=== PATIENT | male | born 1990 | race African-American/Black ===

== ENCOUNTER → 2017-01-21 | Outpatient (REF) | payer MEDICAID | LOC: M LAB REF 11:43 | PROVIDERS: ATTEND Physician Assistant | DX: Z11.3 Encounter for screening for infections with a predominantly sexual mode of transmission (principal) ==

== ENCOUNTER → 2017-01-26 | Outpatient (CLI) | payer OTHER ==
[2017-01-26 13:18] LABS: BASO # 0.1 10^3/uL (0.0-0.2); BASO % 0.7 % (0.0-1.0); EOS # 0.2 10^3/uL (0.0-0.50); EOS % 2.8 % (0.0-3.0); IMMATURE GRANULOCYTE % 0.3 % (0-0); LYMPH # 1.9 10^3/uL (1.5-6.5); LYMPH % 25.9 % (24.0-44.0); MEAN CORPUSCULAR HEMOGLOBIN 27.3 pg (27.0-33.0); MEAN CORPUSCULAR HGB CONC 32.2 g/dl (32.0-36.5); MONO # 0.9 10^3/uL (0.0-0.8); MONO % 12.6 % (0.0-5.0); NEUTROPHILS # 4.3 10^3/uL (1.8-7.7); NEUTROPHILS % 57.7 % (36.0-66.0); PLATELET COUNT, AUTOMATED 181 10^3/uL (150-450); RED CELL DISTRIBUTION WIDTH 14.7 % (11.5-14.5); WHITE BLOOD COUNT 7.4 10^3/uL (4.0-10.0)
[2017-01-26 13:20] LABS: VITAMIN B12 LEVEL 911 PG/ML (247-911)
[2017-01-26 13:23] LABS: ADD MANUAL DIFFER NO; DIFF SLIDE NUMBER 229
[2017-01-26 13:32] LABS: ALBUMIN 3.7 GM/DL (3.2-5.2); ALKALINE PHOSPHATASE 122 U/L (45-117); ALT/SGPT 108 U/L (12-78); ANION GAP 5 MEQ/L (8-16); AST/SGOT 115 U/L (15-37); BILIRUBIN,TOTAL 0.8 MG/DL (0.2-1.0); BLOOD UREA NITROGEN 5 MG/DL (7-18); CALCIUM LEVEL 9.2 MG/DL (8.5-10.1); CARBON DIOXIDE LEVEL 32 MEQ/L (21-32); CHLORIDE LEVEL 101 MEQ/L (98-107); CHOLESTEROL LEVEL 115 MG/DL (<200); CREATININE FOR GFR 0.78 MG/DL (0.70-1.30); GLOMERULAR FILTRATION RATE > 60.0 (>60); GLUCOSE, FASTING 100 MG/DL (70-105); POTASSIUM SERUM 3.2 MEQ/L (3.5-5.1); SODIUM LEVEL 138 MEQ/L (136-145); TOTAL PROTEIN 7.4 GM/DL (6.4-8.2); TRIGLYCERIDES LEVEL 102 MG/DL (<150)
== END ==
LOC: M LAB 12:08
PROVIDERS: ATTEND Registered Nurse Psychiatric/Mental Health
DX: F25.0 Schizoaffective disorder, bipolar type (principal)

== ENCOUNTER 2017-03-08 22:37 | Emergency (ER) | payer OTHER ==
[2017-03-08] MEDS ORDERED: HALOPERIDOL 5 MG/ML VIAL (J1630) IM ONE ×2 (22:45→23:30)
[2017-03-08] MEDS ORDERED: LORazepam 2 MG/ML VIAL (J2060) IM ONE ×2 (22:45→23:30)
[2017-03-08] MEDS ORDERED: diphenhydrAMINE INJ 50MG/ML VIAL (J1200) IM ONE ×2 (22:45→23:30)
[2017-03-09 00:24] LABS: MEAN CORPUSCULAR HEMOGLOBIN 26.4 pg (27.0-33.0); MEAN CORPUSCULAR HGB CONC 32.7 g/dl (32.0-36.5); MEAN CORPUSCULAR VOLUME 80.9 fl (80.0-96.0); PLATELET COUNT, AUTOMATED 249 10^3/uL (150-450); RED CELL DISTRIBUTION WIDTH 15.5 % (11.5-14.5); WHITE BLOOD COUNT 6.2 10^3/uL (4.0-10.0)
[2017-03-09 00:25] LABS: METHADONE URINE NEGATIVE (NEGATIVE)
[2017-03-09 01:00] LABS: ALBUMIN 3.6 GM/DL (3.2-5.2); ALKALINE PHOSPHATASE 110 U/L (45-117); ALT/SGPT 50 U/L (12-78); ANION GAP 9 MEQ/L (8-16); AST/SGOT 38 U/L (7-37); BILIRUBIN,DIRECT 0.1 MG/DL (0.0-0.2); BILIRUBIN,TOTAL 0.4 MG/DL (0.2-1.0); BLOOD UREA NITROGEN 4 MG/DL (7-18); CALCIUM LEVEL 8.3 MG/DL (8.5-10.1); CARBON DIOXIDE LEVEL 26 MEQ/L (21-32); CHLORIDE LEVEL 109 MEQ/L (98-107); CREATININE FOR GFR 0.66 MG/DL (0.70-1.30); GLOMERULAR FILTRATION RATE > 60.0 (>60); GLUCOSE, FASTING 96 MG/DL (70-105); POTASSIUM SERUM 3.8 MEQ/L (3.5-5.1); SODIUM LEVEL 144 MEQ/L (136-145); TOTAL PROTEIN 7.2 GM/DL (6.4-8.2)
[2017-03-09] MEDS ORDERED: SERO50TA (01:17)
[2017-03-09] MEDS ORDERED: PRAZ1CAP (01:17)
[2017-03-09] MEDS ORDERED: LATU40TA (01:17)
[2017-03-09 02:13] LABS: FREE T4 1.69 NG/DL (0.76-1.46)
[2017-03-09] MEDS ORDERED: METAL LOCK LOOP XX ONE (02:43)
[2017-03-09] MEDS ORDERED: NICOTINE 21MG/24HR 1 EA TRANSDERMAL TD ONE (12:00)
[2017-03-09 14:15] VITALS: BP 116/68
== END 2017-03-09 14:17 | disposition home or self-care (01) ==
LOC: M ED 22:37
DX: F10.129 Alcohol abuse with intoxication, unspecified (principal)
CPT/HCPCS: 80048; 80076; 80307; 80320; 80329; 84439; 84443; 85027; 96372; 99285; J1200; J1630; J2060

== ENCOUNTER 2017-03-15 01:27 | Emergency (ER) | payer OTHER ==
[~2017-03-15] VITALS: Ht 185.4 cm; Wt 84.5 kg
[~2017-03-15 01:27] MED LIST: LATU40TA PO; PRAZ1CAP PO; SERO50TA PO
[2017-03-15 02:42] VITALS: BP 142/93
== END 2017-03-15 03:05 | disposition home or self-care (01) ==
LOC: M ED 01:27
DX: F43.0 Acute stress reaction (principal); F43.10 Post-traumatic stress disorder, unspecified; F32.9 Major depressive disorder, single episode, unspecified; F20.9 Schizophrenia, unspecified; F17.200 Nicotine dependence, unspecified, uncomplicated

== ENCOUNTER 2017-03-21 16:29 | Emergency (ER) | payer OTHER ==
[~2017-03-21] VITALS: Ht 185.4 cm; Wt 77.7 kg
[2017-03-21] MEDS ORDERED: PRAZ2CAP PO (16:51)
[2017-03-21 17:41] LABS: MEAN CORPUSCULAR HEMOGLOBIN 26.7 pg (27.0-33.0); MEAN CORPUSCULAR VOLUME 80.9 fl (80.0-96.0); PLATELET COUNT, AUTOMATED 248 10^3/uL (150-450); RED CELL DISTRIBUTION WIDTH 17.8 % (11.5-14.5); WHITE BLOOD COUNT 7.3 10^3/uL (4.0-10.0)
[2017-03-21 18:11] LABS: METHADONE URINE NEGATIVE (NEGATIVE)
[2017-03-21 18:19] LABS: ALBUMIN 3.7 GM/DL (3.2-5.2); ALBUMIN/GLOBULIN RATIO 0.95 (1.00-1.93); ALKALINE PHOSPHATASE 92 U/L (45-117); ALT/SGPT 42 U/L (12-78); ANION GAP 11 MEQ/L (8-16); AST/SGOT 33 U/L (7-37); BILIRUBIN,DIRECT 0.1 MG/DL (0.0-0.2); BILIRUBIN,TOTAL 0.3 MG/DL (0.2-1.0); BLOOD UREA NITROGEN 2 MG/DL (7-18); CALCIUM LEVEL 8.7 MG/DL (8.5-10.1); CARBON DIOXIDE LEVEL 25 MEQ/L (21-32); CHLORIDE LEVEL 106 MEQ/L (98-107); CREATININE FOR GFR 0.74 MG/DL (0.70-1.30); GLOMERULAR FILTRATION RATE > 60.0 (>60); GLUCOSE, FASTING 98 MG/DL (70-105); POTASSIUM SERUM 3.7 MEQ/L (3.5-5.1); SODIUM LEVEL 142 MEQ/L (136-145); TOTAL PROTEIN 7.6 GM/DL (6.4-8.2)
[2017-03-22 03:12] VITALS: BP 123/77
== END 2017-03-22 03:18 | disposition home or self-care (01) ==
LOC: M ED 16:29
DX: Z04.6 Encounter for general psychiatric examination, requested by authority (principal); F10.929 Alcohol use, unspecified with intoxication, unspecified; F33.9 Major depressive disorder, recurrent, unspecified; F20.9 Schizophrenia, unspecified; F43.10 Post-traumatic stress disorder, unspecified; F90.9 Attention-deficit hyperactivity disorder, unspecified type; F17.210 Nicotine dependence, cigarettes, uncomplicated; Z79.899 Other long term (current) drug therapy

== ENCOUNTER → 2017-04-06 | Outpatient (REF) | payer OTHER ==
[~2017-04-06] MED LIST changes: +LATU80TA PO; +NICO14DI3 TD; +PRAZ2CAP PO
[2017-04-06 17:33] LABS: BASO # 0.1 10^3/uL (0.0-0.2); BASO % 1.1 % (0.0-1.0); EOS # 0.2 10^3/uL (0.0-0.50); EOS % 1.9 % (0.0-3.0); IMMATURE GRANULOCYTE % 0.2 % (0-0); LYMPH # 2.5 10^3/uL (1.5-6.5); LYMPH % 31.6 % (24.0-44.0); MEAN CORPUSCULAR HEMOGLOBIN 26.6 pg (27.0-33.0); MEAN CORPUSCULAR VOLUME 80.7 fl (80.0-96.0); MONO # 0.9 10^3/uL (0.0-0.8); MONO % 10.6 % (0.0-5.0); NEUTROPHILS # 4.4 10^3/uL (1.8-7.7); NEUTROPHILS % 54.6 % (36.0-66.0); PLATELET COUNT, AUTOMATED 273 10^3/uL (150-450); RED CELL DISTRIBUTION WIDTH 16.7 % (11.5-14.5)
[2017-04-06 17:48] LABS: ALBUMIN 4.1 GM/DL (3.2-5.2); ALBUMIN/GLOBULIN RATIO 1.08 (1.00-1.93); ALKALINE PHOSPHATASE 99 U/L (45-117); ALT/SGPT 44 U/L (12-78); ANION GAP 8 MEQ/L (8-16); AST/SGOT 33 U/L (7-37); BLOOD UREA NITROGEN 4 MG/DL (7-18); CARBON DIOXIDE LEVEL 30 MEQ/L (21-32); CHLORIDE LEVEL 101 MEQ/L (98-107); CHOLESTEROL LEVEL 174 MG/DL (<200); CREATININE FOR GFR 0.94 MG/DL (0.70-1.30); FREE T4 1.26 NG/DL (0.76-1.46); GLOMERULAR FILTRATION RATE > 60.0 (>60); GLUCOSE, FASTING 75 MG/DL (70-105); POTASSIUM SERUM 3.6 MEQ/L (3.5-5.1); SODIUM LEVEL 139 MEQ/L (136-145); TOTAL PROTEIN 7.9 GM/DL (6.4-8.2); TRIGLYCERIDES LEVEL 144 MG/DL (<150)
== END ==
LOC: M SFHCPLAZ 15:51
PROVIDERS: ATTEND Family Medicine
DX: Z51.81 Encounter for therapeutic drug level monitoring (principal); R89.9 Unspecified abnormal finding in specimens from other organs, systems and tissues; Z71.1 Person with feared health complaint in whom no diagnosis is made

== ENCOUNTER 2017-04-11 18:59 | Emergency (ER) | payer OTHER ==
[~2017-04-11] VITALS: Ht 185.4 cm; Wt 80.9 kg
[~2017-04-11 18:59] MED LIST changes: -LATU80TA PO; -NICO14DI3 TD
[2017-04-11 20:05] LABS: MEAN CORPUSCULAR HGB CONC 34.1 g/dl (32.0-36.5); MEAN CORPUSCULAR VOLUME 79.1 fl (80.0-96.0); PLATELET COUNT, AUTOMATED 242 10^3/uL (150-450); RED CELL DISTRIBUTION WIDTH 17.6 % (11.5-14.5); WHITE BLOOD COUNT 6.4 10^3/uL (4.0-10.0)
[2017-04-11 20:22] LABS: METHADONE URINE NEGATIVE (NEGATIVE)
[2017-04-11 20:33] LABS: ALBUMIN/GLOBULIN RATIO 1.05 (1.00-1.93); ALKALINE PHOSPHATASE 103 U/L (45-117); ALT/SGPT 48 U/L (12-78); ANION GAP 11 MEQ/L (8-16); AST/SGOT 54 U/L (7-37); BILIRUBIN,DIRECT 0.2 MG/DL (0.0-0.2); BILIRUBIN,TOTAL 0.5 MG/DL (0.2-1.0); BLOOD UREA NITROGEN 2 MG/DL (7-18); CALCIUM LEVEL 8.3 MG/DL (8.5-10.1); CARBON DIOXIDE LEVEL 25 MEQ/L (21-32); CHLORIDE LEVEL 107 MEQ/L (98-107); CREATININE FOR GFR 0.75 MG/DL (0.70-1.30); GLOMERULAR FILTRATION RATE > 60.0 (>60); GLUCOSE, FASTING 98 MG/DL (70-105); POTASSIUM SERUM 3.5 MEQ/L (3.5-5.1); SODIUM LEVEL 143 MEQ/L (136-145); TOTAL PROTEIN 7.8 GM/DL (6.4-8.2)
[2017-04-11] MEDS ORDERED: LATU80TA PO (23:16)
[2017-04-11] MEDS ORDERED: NICO14DI3 TD (23:17)
[2017-04-11] MEDS ORDERED: NICOTINE 14 MG/24 HR TRANSDERMAL TD ONE (23:30)
[2017-04-11] MEDS ORDERED: LURASIDONE 20 MG TAB (LATUDA) PO ONE (23:30)
[2017-04-12] MEDS ORDERED: METAL LOCK LOOP XX ONE (07:54)
[2017-04-12 08:11] VITALS: BP 122/62
== END 2017-04-12 11:42 | disposition home or self-care (01) ==
LOC: M ED 18:59
DX: F10.129 Alcohol abuse with intoxication, unspecified (principal); Z72.0 Tobacco use
CPT/HCPCS: 80048; 80076; 80307; 84443; 85027; 99284; G0480

== ENCOUNTER 2017-04-13 22:28 | Emergency (ER) | payer OTHER ==
[2017-04-13] MEDS: HALOPERIDOL 5 MG/ML VIAL (J1630) IM (23:06)
[2017-04-13] MEDS: diphenhydrAMINE INJ 50MG/ML VIAL (J1200) IM (23:06)
[2017-04-13] MEDS: LORazepam 2 MG/ML VIAL (J2060) IM (23:07)
[2017-04-13 23:57] LABS: MEAN CORPUSCULAR HEMOGLOBIN 26.9 pg (27.0-33.0); MEAN CORPUSCULAR HGB CONC 33.8 g/dl (32.0-36.5); MEAN CORPUSCULAR VOLUME 79.4 fl (80.0-96.0); PLATELET COUNT, AUTOMATED 207 10^3/uL (150-450); RED CELL DISTRIBUTION WIDTH 17.1 % (11.5-14.5); WHITE BLOOD COUNT 6.7 10^3/uL (4.0-10.0)
[2017-04-14] LABS: METHADONE URINE NEGATIVE (NEGATIVE)
[2017-04-14 00:39] LABS: ALBUMIN 3.4 GM/DL (3.2-5.2); ALKALINE PHOSPHATASE 94 U/L (45-117); ALT/SGPT 32 U/L (12-78); ANION GAP 11 MEQ/L (8-16); AST/SGOT 29 U/L (7-37); BILIRUBIN,DIRECT 0.2 MG/DL (0.0-0.2); BILIRUBIN,TOTAL 0.7 MG/DL (0.2-1.0); BLOOD UREA NITROGEN 3 MG/DL (7-18); CALCIUM LEVEL 8.2 MG/DL (8.5-10.1); CARBON DIOXIDE LEVEL 26 MEQ/L (21-32); CHLORIDE LEVEL 97 MEQ/L (98-107); CREATININE FOR GFR 0.68 MG/DL (0.70-1.30); GLOMERULAR FILTRATION RATE > 60.0 (>60); GLUCOSE, FASTING 108 MG/DL (70-105); TOTAL PROTEIN 6.8 GM/DL (6.4-8.2)
[2017-04-14 00:50] LABS: SODIUM LEVEL 134 MEQ/L (136-145)
[2017-04-14 00:51] LABS: POTASSIUM SERUM 2.9 MEQ/L (3.5-5.1)
[2017-04-14] MEDS: POTASSIUM CHLORIDE 10% LIQ 20 MEQ/15 ML UDC PO (01:21)
[2017-04-14] MEDS: POTASSIUM CHLORIDE 10 MEQ SR TABLET PO (05:34)
[2017-04-14] MEDS ORDERED: POTASSIUM CHLORIDE 10 MEQ SR TABLET PO (08:15)
== END 2017-04-14 10:25 | disposition home or self-care (01) ==
LOC: M ED 22:28
DX: F10.129 Alcohol abuse with intoxication, unspecified (principal); R45.851 Suicidal ideations; Z72.0 Tobacco use
CPT/HCPCS: J1200

== ENCOUNTER 2017-04-25 22:48 | Emergency (ER) | payer OTHER ==
[2017-04-25 23:33] LABS: HEMATOCRIT 42.7 % (42.0-52.0); HEMOGLOBIN 14.3 g/dl (14.0-18.0); MEAN CORPUSCULAR HEMOGLOBIN 26.8 pg (27.0-33.0); MEAN CORPUSCULAR HGB CONC 33.5 g/dl (32.0-36.5); MEAN CORPUSCULAR VOLUME 80.1 fl (80.0-96.0); PLATELET COUNT, AUTOMATED 155 10^3/uL (150-450); RED BLOOD COUNT 5.33 10^6/uL (4.30-6.10); RED CELL DISTRIBUTION WIDTH 19.9 % (11.5-14.5); WHITE BLOOD COUNT 6.4 10^3/uL (4.0-10.0)
[2017-04-26 00:02] LABS: AMPHETAMINES LEVEL URINE NEGATIVE (NEGATIVE); BARBITURATES URINE NEGATIVE (NEGATIVE); BENZODIAZEPINES URINE NEGATIVE (NEGATIVE); CANNABINOIDS URINE NEGATIVE (NEGATIVE); COCAINE METABOLITE URINE NEGATIVE (NEGATIVE); METHADONE URINE NEGATIVE (NEGATIVE); OPIATES URINE NEGATIVE (NEGATIVE); PHENCYCLIDINE URINE NEGATIVE (NEGATIVE)
[2017-04-26 00:03] LABS: ALBUMIN 3.8 GM/DL (3.2-5.2); ALKALINE PHOSPHATASE 112 U/L (45-117); ALT/SGPT 49 U/L (12-78); ANION GAP 9 MEQ/L (8-16); AST/SGOT 99 U/L (7-37); BILIRUBIN,DIRECT 0.2 MG/DL (0.0-0.2); BILIRUBIN,TOTAL 0.6 MG/DL (0.2-1.0); BLOOD UREA NITROGEN 4 MG/DL (7-18); CALCIUM LEVEL 7.8 MG/DL (8.5-10.1); CARBON DIOXIDE LEVEL 27 MEQ/L (21-32); CHLORIDE LEVEL 105 MEQ/L (98-107); CREATININE FOR GFR 0.72 MG/DL (0.70-1.30); GLOMERULAR FILTRATION RATE > 60.0 (>60); GLUCOSE, FASTING 83 MG/DL (70-105); POTASSIUM SERUM 3.7 MEQ/L (3.5-5.1); SALICYLATE LEVEL 4.8 MG/DL (5.0-30.0); SODIUM LEVEL 141 MEQ/L (136-145); THYROID STIMULATING HORMONE 0.107 uIU/ML (0.358-3.740); TOTAL PROTEIN 7.6 GM/DL (6.4-8.2)
[2017-04-26 00:10] LABS: ACETAMINOPHEN LEVEL < 2.0 UG/ML (10.0-30.0)
[2017-04-26] MEDS: NICOTINE 21MG/24HR 1 EA TRANSDERMAL TD (04:56)
[2017-04-26 08:39] LABS: ETHYL ALCOHOL (ETHANOL) 0.244 % (0.000-0.010)
== END 2017-04-26 10:33 | disposition home or self-care (01) ==
LOC: M ED 22:48
DX: F10.129 Alcohol abuse with intoxication, unspecified (principal); F17.200 Nicotine dependence, unspecified, uncomplicated
CPT/HCPCS: 80320

== ENCOUNTER → 2017-05-14 | Outpatient (REF) | payer OTHER ==
[2017-05-16 15:57] LABS: CHLAMYDIA DNA AMPLIFICATION NEGATIVE (NEGATIVE); GC DNA AMPLIFICATION NEGATIVE (NEGATIVE)
== END ==
LOC: M LAB REF 09:51
DX: R30.0 Dysuria (principal)
CPT/HCPCS: 87591

== ENCOUNTER 2017-05-15 02:09 | Emergency (ER) | payer OTHER ==
[2017-05-15] MEDS: QUEtiapine FUMARATE 50 MG TAB PO (02:59)
== END 2017-05-15 03:53 | disposition home or self-care (01) ==
LOC: M ED 02:09
DX: F25.9 Schizoaffective disorder, unspecified (principal); Z79.899 Other long term (current) drug therapy
CPT/HCPCS: 99283

== ENCOUNTER 2017-05-17 02:39 | Emergency (ER) | payer OTHER ==
[2017-05-17 04:04] LABS: HEMATOCRIT 40.5 % (42.0-52.0); HEMOGLOBIN 13.5 g/dl (14.0-18.0); MEAN CORPUSCULAR HEMOGLOBIN 28.5 pg (27.0-33.0); MEAN CORPUSCULAR HGB CONC 33.3 g/dl (32.0-36.5); MEAN CORPUSCULAR VOLUME 85.4 fl (80.0-96.0); PLATELET COUNT, AUTOMATED 182 10^3/uL (150-450); RED BLOOD COUNT 4.74 10^6/uL (4.30-6.10); RED CELL DISTRIBUTION WIDTH 18.6 % (11.5-14.5); WHITE BLOOD COUNT 8.6 10^3/uL (4.0-10.0)
[2017-05-17 04:17] LABS: AMPHETAMINES LEVEL URINE NEGATIVE (NEGATIVE); BARBITURATES URINE NEGATIVE (NEGATIVE); BENZODIAZEPINES URINE NEGATIVE (NEGATIVE); CANNABINOIDS URINE NEGATIVE (NEGATIVE); COCAINE METABOLITE URINE NEGATIVE (NEGATIVE); METHADONE URINE NEGATIVE (NEGATIVE); OPIATES URINE NEGATIVE (NEGATIVE); PHENCYCLIDINE URINE NEGATIVE (NEGATIVE)
[2017-05-17 04:35] LABS: ACETAMINOPHEN LEVEL < 2.0 UG/ML (10.0-30.0); ALBUMIN 3.7 GM/DL (3.2-5.2); ALBUMIN/GLOBULIN RATIO 0.95 (1.00-1.93); ALKALINE PHOSPHATASE 93 U/L (45-117); ALT/SGPT 43 U/L (12-78); ANION GAP 9 MEQ/L (8-16); AST/SGOT 68 U/L (7-37); BILIRUBIN,DIRECT 0.2 MG/DL (0.0-0.2); BILIRUBIN,TOTAL 0.7 MG/DL (0.2-1.0); BLOOD UREA NITROGEN 6 MG/DL (7-18); CALCIUM LEVEL 8.8 MG/DL (8.5-10.1); CARBON DIOXIDE LEVEL 26 MEQ/L (21-32); CHLORIDE LEVEL 99 MEQ/L (98-107); CREATININE FOR GFR 0.71 MG/DL (0.70-1.30); ETHYL ALCOHOL (ETHANOL) < 0.003 % (0.000-0.010); GLOMERULAR FILTRATION RATE > 60.0 (>60); GLUCOSE, FASTING 114 MG/DL (70-100); POTASSIUM SERUM 3.6 MEQ/L (3.5-5.1); SALICYLATE LEVEL 3.6 MG/DL (5.0-30.0); SODIUM LEVEL 134 MEQ/L (136-145); THYROID STIMULATING HORMONE 0.445 uIU/ML (0.358-3.740); TOTAL PROTEIN 7.6 GM/DL (6.4-8.2)
== END 2017-05-17 06:02 | disposition home or self-care (01) ==
LOC: M ED 02:39
DX: F20.0 Paranoid schizophrenia (principal); Z91.14 Patient's other noncompliance with medication regimen; F17.200 Nicotine dependence, unspecified, uncomplicated
CPT/HCPCS: 80320

== ENCOUNTER 2017-05-17 15:29 | Inpatient (IN) | payer OTHER ==
[2017-05-17 16:04] LABS: HEMATOCRIT 39.7 % (42.0-52.0); HEMOGLOBIN 13.4 g/dl (14.0-18.0); MEAN CORPUSCULAR HEMOGLOBIN 28.7 pg (27.0-33.0); MEAN CORPUSCULAR HGB CONC 33.8 g/dl (32.0-36.5); PLATELET COUNT, AUTOMATED 194 10^3/uL (150-450); RED BLOOD COUNT 4.67 10^6/uL (4.30-6.10); RED CELL DISTRIBUTION WIDTH 18.5 % (11.5-14.5); WHITE BLOOD COUNT 6.2 10^3/uL (4.0-10.0)
[2017-05-17 16:42] LABS: AMPHETAMINES LEVEL URINE NEGATIVE (NEGATIVE); BARBITURATES URINE NEGATIVE (NEGATIVE); BENZODIAZEPINES URINE NEGATIVE (NEGATIVE); CANNABINOIDS URINE NEGATIVE (NEGATIVE); COCAINE METABOLITE URINE NEGATIVE (NEGATIVE); METHADONE URINE NEGATIVE (NEGATIVE); OPIATES URINE NEGATIVE (NEGATIVE); PHENCYCLIDINE URINE NEGATIVE (NEGATIVE)
[2017-05-17 16:53] LABS: ALBUMIN 3.9 GM/DL (3.2-5.2); ALBUMIN/GLOBULIN RATIO 1.18 (1.00-1.93); ALKALINE PHOSPHATASE 88 U/L (45-117); ALT/SGPT 45 U/L (12-78); ANION GAP 10 MEQ/L (8-16); AST/SGOT 59 U/L (7-37); BILIRUBIN,DIRECT 0.2 MG/DL (0.0-0.2); BILIRUBIN,TOTAL 0.9 MG/DL (0.2-1.0); BLOOD UREA NITROGEN 4 MG/DL (7-18); CALCIUM LEVEL 8.7 MG/DL (8.5-10.1); CARBON DIOXIDE LEVEL 24 MEQ/L (21-32); CHLORIDE LEVEL 103 MEQ/L (98-107); CREATININE FOR GFR 0.83 MG/DL (0.70-1.30); ETHYL ALCOHOL (ETHANOL) < 0.003 % (0.000-0.010); GLOMERULAR FILTRATION RATE > 60.0 (>60); GLUCOSE, FASTING 156 MG/DL (70-100); POTASSIUM SERUM 3.6 MEQ/L (3.5-5.1); SALICYLATE LEVEL 3.2 MG/DL (5.0-30.0); SODIUM LEVEL 137 MEQ/L (136-145); THYROID STIMULATING HORMONE 0.368 uIU/ML (0.358-3.740); TOTAL PROTEIN 7.2 GM/DL (6.4-8.2)
[2017-05-17 17:01] LABS: ACETAMINOPHEN LEVEL < 2.0 UG/ML (10.0-30.0)
[2017-05-17] MEDS: BACITRACIN OINT 30GM EXT (21:00)
[2017-05-17] MEDS ORDERED: NICOTINE 14 MG/24 HR TRANSDERMAL TD (22:30)
[2017-05-17] MEDS ORDERED: ACETAMINOPHEN TAB 650MG DOSE (2X325MG) PO (22:30)
[2017-05-17] MEDS ORDERED: MAALOX 30 ML SUSP *UDC PO (22:30)
[2017-05-17] MEDS ORDERED: MOM 30ML SUSPENSION UDC PO (22:30)
[2017-05-17] MEDS: NICOTINE 21MG/24HR 1 EA TRANSDERMAL TD (22:37)
[2017-05-17] MEDS: CEPHALEXIN 500 MG CAP PO (22:37)
[2017-05-18] MEDS: LORazepam 1 MG TAB PO (00:30)
[2017-05-18] MEDS: CEPHALEXIN 500 MG CAP PO ×3 (09:08→21:42)
[2017-05-18] MEDS: NICOTINE 21MG/24HR 1 EA TRANSDERMAL TD (09:09)
[2017-05-18] MEDS: BACITRACIN OINT 30GM EXT ×2 (09:09→21:42)
[2017-05-18 12:20] LABS: HEPATITIS B SURFACE ANTIGEN NEGATIVE (NEGATIVE)
[2017-05-18 12:47] LABS: HEPATITIS C VIRUS ABY INDEX < 0.0 INDEX (<0.8)
[2017-05-18 12:48] LABS: HEPATITIS B CORE ANTIBODY IGM NEGATIVE (NEGATIVE)
[2017-05-18 12:50] LABS: HEPATITIS A ANTIBODY IGM NEGATIVE (NEGATIVE)
[2017-05-18] MEDS ORDERED: LORazepam 2 MG TAB PO (13:15)
[2017-05-18] MEDS: MULTIVITAMINS/MINERALS THERAP 1 TAB PO (13:34)
[2017-05-18] MEDS: THIAMINE 100 MG TAB PO ×2 (13:34→21:42)
[2017-05-18] MEDS: FOLIC ACID 1 MG TAB PO (13:34)
[2017-05-18] MEDS: LURASIDONE 20 MG TAB (LATUDA) PO (21:42)
[2017-05-18] MEDS: PRAZOSIN 1 MG CAP PO (21:42)
[2017-05-18] MEDS: QUEtiapine FUMARATE 50 MG TAB PO (21:42)
[2017-05-19] MEDS: CEPHALEXIN 500 MG CAP PO ×3 (08:27→22:11)
[2017-05-19] MEDS: MULTIVITAMINS/MINERALS THERAP 1 TAB PO (08:27)
[2017-05-19] MEDS: THIAMINE 100 MG TAB PO ×2 (08:27→22:11)
[2017-05-19] MEDS: FOLIC ACID 1 MG TAB PO (08:27)
[2017-05-19] MEDS: BACITRACIN OINT 30GM EXT ×3 (08:27→22:14)
[2017-05-19] MEDS: NICOTINE 21MG/24HR 1 EA TRANSDERMAL TD (08:29)
[2017-05-19] MEDS: INFLUENZA QUADRIVALENT PF VACCINE 0.5ML SYRINGE (90686) IM (08:29)
[2017-05-19 10:23] LABS: ALBUMIN 3.6 GM/DL (3.2-5.2); ALBUMIN/GLOBULIN RATIO 1.13 (1.00-1.93); ALKALINE PHOSPHATASE 74 U/L (45-117); ALT/SGPT 36 U/L (12-78); ANION GAP 6 MEQ/L (8-16); AST/SGOT 33 U/L (7-37); BILIRUBIN,TOTAL 0.5 MG/DL (0.2-1.0); BLOOD UREA NITROGEN 10 MG/DL (7-18); CALCIUM LEVEL 8.8 MG/DL (8.5-10.1); CARBON DIOXIDE LEVEL 27 MEQ/L (21-32); CHLORIDE LEVEL 109 MEQ/L (98-107); CREATININE FOR GFR 0.78 MG/DL (0.70-1.30); GLOMERULAR FILTRATION RATE > 60.0 (>60); GLUCOSE, FASTING 80 MG/DL (70-100); POTASSIUM SERUM 4.1 MEQ/L (3.5-5.1); SODIUM LEVEL 142 MEQ/L (136-145); TOTAL PROTEIN 6.8 GM/DL (6.4-8.2)
[2017-05-19] MEDS: LURASIDONE 20 MG TAB (LATUDA) PO (22:11)
[2017-05-19] MEDS: PRAZOSIN 1 MG CAP PO (22:12)
[2017-05-19] MEDS: QUEtiapine FUMARATE 50 MG TAB PO (22:12)
[2017-05-20] MEDS: NICOTINE 21MG/24HR 1 EA TRANSDERMAL TD (08:24)
[2017-05-20] MEDS: FOLIC ACID 1 MG TAB PO (08:24)
[2017-05-20] MEDS: THIAMINE 100 MG TAB PO ×2 (08:24→22:26)
[2017-05-20] MEDS: BACITRACIN OINT 30GM EXT ×2 (08:24→21:38)
[2017-05-20] MEDS: MULTIVITAMINS/MINERALS THERAP 1 TAB PO (08:24)
[2017-05-20] MEDS: CEPHALEXIN 500 MG CAP PO ×3 (08:24→22:25)
[2017-05-20] MEDS: QUEtiapine FUMARATE 50 MG TAB PO (22:25)
[2017-05-20] MEDS: LURASIDONE 20 MG TAB (LATUDA) PO (22:26)
[2017-05-20] MEDS: PRAZOSIN 1 MG CAP PO (22:26)
[2017-05-21] MEDS: CEPHALEXIN 500 MG CAP PO ×3 (09:02→23:15)
[2017-05-21] MEDS: NICOTINE 21MG/24HR 1 EA TRANSDERMAL TD (09:02)
[2017-05-21] MEDS: FOLIC ACID 1 MG TAB PO (09:02)
[2017-05-21] MEDS: BACITRACIN OINT 30GM EXT ×2 (09:02→21:43)
[2017-05-21] MEDS: MULTIVITAMINS/MINERALS THERAP 1 TAB PO (09:02)
[2017-05-21] MEDS: LURASIDONE 20 MG TAB (LATUDA) PO (23:15)
[2017-05-21] MEDS: QUEtiapine FUMARATE 50 MG TAB PO (23:15)
[2017-05-21] MEDS: PRAZOSIN 1 MG CAP PO (23:16)
[2017-05-22] MEDS: BACITRACIN OINT 30GM EXT ×2 (08:46→22:22)
[2017-05-22] MEDS: NICOTINE 21MG/24HR 1 EA TRANSDERMAL TD (08:48)
[2017-05-22] MEDS: MULTIVITAMINS/MINERALS THERAP 1 TAB PO (08:48)
[2017-05-22] MEDS: FOLIC ACID 1 MG TAB PO (08:48)
[2017-05-22] MEDS: CEPHALEXIN 500 MG CAP PO ×3 (08:49→22:21)
[2017-05-22] MEDS: QUEtiapine FUMARATE 50 MG TAB PO (21:00)
[2017-05-22] MEDS: LURASIDONE 20 MG TAB (LATUDA) PO (22:21)
[2017-05-22] MEDS: PRAZOSIN 1 MG CAP PO (22:22)
[2017-05-23] MEDS: FOLIC ACID 1 MG TAB PO (08:20)
[2017-05-23] MEDS: NICOTINE 21MG/24HR 1 EA TRANSDERMAL TD (08:20)
[2017-05-23] MEDS: MULTIVITAMINS/MINERALS THERAP 1 TAB PO (08:20)
[2017-05-23] MEDS: CEPHALEXIN 500 MG CAP PO (08:20)
== END 2017-05-23 09:30 | DRG 885 ==
LOC: M ED 15:29 → M ED INP 18:09 → M PSY 20:22
PROVIDERS: Psychiatry & Neurology Psychiatry
DX: F20.0 Paranoid schizophrenia (principal); F43.10 Post-traumatic stress disorder, unspecified; F10.10 Alcohol abuse, uncomplicated; F32.9 Major depressive disorder, single episode, unspecified; F17.210 Nicotine dependence, cigarettes, uncomplicated; Z91.14 Patient's other noncompliance with medication regimen; Z79.899 Other long term (current) drug therapy

== ENCOUNTER 2017-06-25 17:35 | Inpatient (IN) | payer OTHER ==
[2017-06-25 18:38] LABS: HEMATOCRIT 42.4 % (42.0-52.0); HEMOGLOBIN 14.8 g/dl (14.0-18.0); MEAN CORPUSCULAR HEMOGLOBIN 28.7 pg (27.0-33.0); MEAN CORPUSCULAR HGB CONC 34.9 g/dl (32.0-36.5); MEAN CORPUSCULAR VOLUME 82.3 fl (80.0-96.0); PLATELET COUNT, AUTOMATED 271 10^3/uL (150-450); RED BLOOD COUNT 5.15 10^6/uL (4.30-6.10); RED CELL DISTRIBUTION WIDTH 14.6 % (11.5-14.5); WHITE BLOOD COUNT 8.7 10^3/uL (4.0-10.0)
[2017-06-25 18:57] LABS: AMPHETAMINES LEVEL URINE NEGATIVE (NEGATIVE); BARBITURATES URINE NEGATIVE (NEGATIVE); BENZODIAZEPINES URINE NEGATIVE (NEGATIVE); CANNABINOIDS URINE NEGATIVE (NEGATIVE); COCAINE METABOLITE URINE NEGATIVE (NEGATIVE); METHADONE URINE NEGATIVE (NEGATIVE); OPIATES URINE NEGATIVE (NEGATIVE); PHENCYCLIDINE URINE NEGATIVE (NEGATIVE)
[2017-06-25 19:04] LABS: ALBUMIN 4.3 GM/DL (3.2-5.2); ALBUMIN/GLOBULIN RATIO 1.19 (1.00-1.93); ALKALINE PHOSPHATASE 81 U/L (45-117); ALT/SGPT 40 U/L (12-78); ANION GAP 11 MEQ/L (8-16); AST/SGOT 43 U/L (7-37); BILIRUBIN,DIRECT 0.1 MG/DL (0.0-0.2); BILIRUBIN,TOTAL 0.4 MG/DL (0.2-1.0); BLOOD UREA NITROGEN 6 MG/DL (7-18); CALCIUM LEVEL 8.2 MG/DL (8.5-10.1); CARBON DIOXIDE LEVEL 24 MEQ/L (21-32); CHLORIDE LEVEL 103 MEQ/L (98-107); CREATININE FOR GFR 0.78 MG/DL (0.70-1.30); ETHYL ALCOHOL (ETHANOL) 0.331 % (0.000-0.010); GLOMERULAR FILTRATION RATE > 60.0 (>60); GLUCOSE, FASTING 96 MG/DL (70-100); POTASSIUM SERUM 3.7 MEQ/L (3.5-5.1); SALICYLATE LEVEL 2.4 MG/DL (5.0-30.0); SODIUM LEVEL 138 MEQ/L (136-145); THYROID STIMULATING HORMONE 0.158 uIU/ML (0.358-3.740); TOTAL PROTEIN 7.9 GM/DL (6.4-8.2)
[2017-06-25 19:06] LABS: ACETAMINOPHEN LEVEL < 2.0 UG/ML (10.0-30.0)
[2017-06-25] MEDS: NICOTINE 21MG/24HR 1 EA TRANSDERMAL TD (20:19)
[2017-06-26] MEDS: OXAZEPAM 15 MG CAP PO (09:25)
[2017-06-26] MEDS: NICOTINE 21MG/24HR 1 EA TRANSDERMAL TD (16:13)
[2017-06-26] MEDS: QUEtiapine FUMARATE 50 MG TAB PO (21:34)
[2017-06-26] MEDS: PRAZOSIN 1 MG CAP PO (21:36)
[2017-06-27 08:17] LABS: ALBUMIN 3.7 GM/DL (3.2-5.2); ALBUMIN/GLOBULIN RATIO 1.12 (1.00-1.93); ALKALINE PHOSPHATASE 75 U/L (45-117); ALT/SGPT 28 U/L (12-78); AST/SGOT 25 U/L (7-37); BILIRUBIN,DIRECT 0.2 MG/DL (0.0-0.2); FREE THYROXINE INDEX 3.5 % (1.4-3.8); T UPTAKE 35 % (33-40); THYROID STIMULATING HORMONE 0.158 uIU/ML (0.358-3.740); THYROXINE (T4) 10.1 UG/DL (4.5-12.0)
[2017-06-27] MEDS: DIVALPROEX 250 MG TAB PO (08:35)
[2017-06-27] MEDS: NICOTINE 21MG/24HR 1 EA TRANSDERMAL TD (08:35)
[2017-06-27] MEDS: MULTIVITAMINS/MINERALS THERAP 1 TAB PO (08:35)
[2017-06-27] MEDS ORDERED: DIVALPROEX 250 MG TAB PO (09:00)
[2017-06-27] MEDS: THIAMINE 100 MG TAB PO (11:35)
[2017-06-27] MEDS: LURASIDONE HCL 40 MG TAB (LATUDA) PO (17:58)
[2017-06-27] MEDS: PRAZOSIN 1 MG CAP PO (21:16)
[2017-06-27] MEDS: QUEtiapine FUMARATE 50 MG TAB PO (21:16)
[2017-06-28] MEDS ORDERED: MULTIVITAMINS/MINERALS THERAP 1 TAB PO (09:00)
[2017-06-28] MEDS: MULTIVITAMINS/MINERALS THERAP 1 TAB PO (09:24)
[2017-06-28] MEDS: NICOTINE 21MG/24HR 1 EA TRANSDERMAL TD (09:24)
[2017-06-28] MEDS: THIAMINE 100 MG TAB PO (09:24)
[2017-06-28] MEDS: DIVALPROEX 250 MG TAB PO (09:24)
[2017-06-28] MEDS: GABAPENTIN 300 MG CAP PO ×3 (11:11→21:22)
[2017-06-28] MEDS: LURASIDONE HCL 40 MG TAB (LATUDA) PO (18:10)
[2017-06-28] MEDS: PRAZOSIN 1 MG CAP PO (21:22)
[2017-06-28] MEDS: QUEtiapine FUMARATE 50 MG TAB PO (21:22)
[2017-06-29] MEDS: THIAMINE 100 MG TAB PO (08:05)
[2017-06-29] MEDS: DIVALPROEX 250 MG TAB PO (08:06)
[2017-06-29] MEDS: NICOTINE 21MG/24HR 1 EA TRANSDERMAL TD (08:06)
[2017-06-29] MEDS: GABAPENTIN 300 MG CAP PO ×3 (08:07→21:09)
[2017-06-29] MEDS: MULTIVITAMINS/MINERALS THERAP 1 TAB PO (08:07)
[2017-06-29] MEDS: LURASIDONE HCL 40 MG TAB (LATUDA) PO (18:07)
[2017-06-29] MEDS: QUEtiapine FUMARATE 50 MG TAB PO (21:05)
[2017-06-29] MEDS: PRAZOSIN 1 MG CAP PO (21:09)
[2017-06-30] MEDS: GABAPENTIN 300 MG CAP PO ×3 (08:27→20:39)
[2017-06-30] MEDS: MULTIVITAMINS/MINERALS THERAP 1 TAB PO (08:27)
[2017-06-30] MEDS: THIAMINE 100 MG TAB PO (08:27)
[2017-06-30] MEDS: DIVALPROEX 500MG *ER* TAB PO (08:27)
[2017-06-30] MEDS: NICOTINE 21MG/24HR 1 EA TRANSDERMAL TD (08:28)
[2017-06-30] MEDS: LURASIDONE HCL 40 MG TAB (LATUDA) PO (17:51)
[2017-06-30] MEDS: QUEtiapine FUMARATE 50 MG TAB PO (20:37)
[2017-06-30] MEDS: PRAZOSIN 1 MG CAP PO (20:38)
[2017-06-30] MEDS: MIRTAZAPINE 15 MG TAB PO (21:36)
[2017-06-30] MEDS: OLANZapine ORAL DISINTEGRATING TAB 5MG PO (21:36)
[2017-07-01] MEDS: MULTIVITAMINS/MINERALS THERAP 1 TAB PO (08:16)
[2017-07-01] MEDS: THIAMINE 100 MG TAB PO (08:16)
[2017-07-01] MEDS: DIVALPROEX 500MG *ER* TAB PO (08:16)
[2017-07-01] MEDS: NICOTINE 21MG/24HR 1 EA TRANSDERMAL TD (08:16)
[2017-07-01] MEDS: GABAPENTIN 300 MG CAP PO (08:16)
== END 2017-07-01 14:25 | disposition home or self-care (01) | DRG 885 ==
LOC: M ED 17:35 → M ED INP 06-26 10:48 → M PSY 06-26 12:48
DX: F20.0 Paranoid schizophrenia (principal); F10.229 Alcohol dependence with intoxication, unspecified; F43.10 Post-traumatic stress disorder, unspecified; F17.210 Nicotine dependence, cigarettes, uncomplicated; Z91.14 Patient's other noncompliance with medication regimen; Z91.5 Personal history of self-harm; Z79.899 Other long term (current) drug therapy; Z81.8 Family history of other mental and behavioral disorders

== ENCOUNTER 2017-07-09 19:53 | Emergency (ER) | payer OTHER | END 2017-07-09 21:09 | disposition home or self-care (01) | LOC: M ED 19:53 | DX: B86 Scabies (principal); F17.200 Nicotine dependence, unspecified, uncomplicated; Z79.899 Other long term (current) drug therapy | CPT/HCPCS: 99283 ==

== ENCOUNTER 2017-07-12 18:28 | Emergency (ER) | payer OTHER ==
[2017-07-12 19:23] LABS: HEMATOCRIT 41.8 % (42.0-52.0); HEMOGLOBIN 14.2 g/dl (14.0-18.0); MEAN CORPUSCULAR HEMOGLOBIN 29.4 pg (27.0-33.0); MEAN CORPUSCULAR VOLUME 86.5 fl (80.0-96.0); PLATELET COUNT, AUTOMATED 257 10^3/uL (150-450); RED BLOOD COUNT 4.83 10^6/uL (4.30-6.10); RED CELL DISTRIBUTION WIDTH 13.3 % (11.5-14.5); WHITE BLOOD COUNT 6.3 10^3/uL (4.0-10.0)
[2017-07-12 19:33] LABS: AMPHETAMINES LEVEL URINE NEGATIVE (NEGATIVE); BARBITURATES URINE NEGATIVE (NEGATIVE); BENZODIAZEPINES URINE NEGATIVE (NEGATIVE); CANNABINOIDS URINE NEGATIVE (NEGATIVE); COCAINE METABOLITE URINE NEGATIVE (NEGATIVE); METHADONE URINE NEGATIVE (NEGATIVE); OPIATES URINE NEGATIVE (NEGATIVE); PHENCYCLIDINE URINE NEGATIVE (NEGATIVE)
[2017-07-12 19:44] LABS: ALBUMIN 4.2 GM/DL (3.2-5.2); ALBUMIN/GLOBULIN RATIO 1.05 (1.00-1.93); ALKALINE PHOSPHATASE 86 U/L (45-117); ALT/SGPT 21 U/L (12-78); ANION GAP 8 MEQ/L (8-16); AST/SGOT 21 U/L (7-37); BILIRUBIN,DIRECT 0.1 MG/DL (0.0-0.2); BILIRUBIN,TOTAL 0.4 MG/DL (0.2-1.0); BLOOD UREA NITROGEN 4 MG/DL (7-18); CALCIUM LEVEL 8.5 MG/DL (8.5-10.1); CARBON DIOXIDE LEVEL 27 MEQ/L (21-32); CHLORIDE LEVEL 109 MEQ/L (98-107); GLOMERULAR FILTRATION RATE > 60.0 (>60); GLUCOSE, FASTING 85 MG/DL (70-100); POTASSIUM SERUM 3.8 MEQ/L (3.5-5.1); SALICYLATE LEVEL 3.7 MG/DL (5.0-30.0); SODIUM LEVEL 144 MEQ/L (136-145); TOTAL PROTEIN 8.2 GM/DL (6.4-8.2)
[2017-07-12 19:46] LABS: ACETAMINOPHEN LEVEL < 2.0 UG/ML (10.0-30.0)
== END 2017-07-13 06:36 | disposition home or self-care (01) ==
LOC: M ED 07-13 06:36
DX: F10.120 Alcohol abuse with intoxication, uncomplicated (principal); F20.9 Schizophrenia, unspecified; Z59.0 Homelessness; Z79.899 Other long term (current) drug therapy
CPT/HCPCS: 80320

== ENCOUNTER 2017-07-25 22:56 | Emergency (ER) | payer OTHER | END 2017-07-25 23:44 | disposition left against medical advice (07) | LOC: M ED 22:56 | DX: Z53.29 Procedure and treatment not carried out because of patient's decision for other reasons (principal) ==

== ENCOUNTER 2017-08-04 08:50 | Inpatient (IN) | payer OTHER ==
[2017-08-04 08:28] LABS: HEMATOCRIT 40.2 % (42.0-52.0); HEMOGLOBIN 13.9 g/dl (13.5-17.5); MEAN CORPUSCULAR HEMOGLOBIN 29.9 pg (27.0-33.0); MEAN CORPUSCULAR HGB CONC 34.6 g/dl (32.0-36.5); MEAN CORPUSCULAR VOLUME 86.5 fl (80.0-96.0); PLATELET COUNT, AUTOMATED 118 10^3/uL (150-450); RED BLOOD COUNT 4.65 10^6/uL (4.30-6.10); RED CELL DISTRIBUTION WIDTH 13.5 % (11.5-14.5); WHITE BLOOD COUNT 6.1 10^3/uL (4.0-10.0)
[2017-08-04 08:47] LABS: AMPHETAMINES LEVEL URINE NEGATIVE (NEGATIVE); BARBITURATES URINE NEGATIVE (NEGATIVE); BENZODIAZEPINES URINE NEGATIVE (NEGATIVE); CANNABINOIDS URINE NEGATIVE (NEGATIVE); COCAINE METABOLITE URINE NEGATIVE (NEGATIVE); METHADONE URINE NEGATIVE (NEGATIVE); OPIATES URINE NEGATIVE (NEGATIVE); PHENCYCLIDINE URINE NEGATIVE (NEGATIVE)
[2017-08-04 08:49] LABS: VALPROIC ACID (DEPAKOTE) < 3.0 UG/ML (50.0-100.0)
[2017-08-04 08:57] LABS: ACETAMINOPHEN LEVEL < 2.0 UG/ML (10.0-30.0); ALBUMIN 3.5 GM/DL (3.2-5.2); ALBUMIN/GLOBULIN RATIO 0.97 (1.00-1.93); ALKALINE PHOSPHATASE 112 U/L (45-117); ALT/SGPT 64 U/L (12-78); ANION GAP 11 MEQ/L (8-16); AST/SGOT 83 U/L (7-37); BILIRUBIN,DIRECT 0.1 MG/DL (0.0-0.2); BILIRUBIN,TOTAL 0.4 MG/DL (0.2-1.0); BLOOD UREA NITROGEN 3 MG/DL (7-18); CALCIUM LEVEL 8.1 MG/DL (8.5-10.1); CARBON DIOXIDE LEVEL 24 MEQ/L (21-32); CHLORIDE LEVEL 95 MEQ/L (98-107); CREATININE FOR GFR 0.77 MG/DL (0.70-1.30); ETHYL ALCOHOL (ETHANOL) 0.128 % (0.000-0.010); GLOMERULAR FILTRATION RATE > 60.0 (>60); GLUCOSE, FASTING 95 MG/DL (70-100); POTASSIUM SERUM 3.2 MEQ/L (3.5-5.1); SALICYLATE LEVEL 5.4 MG/DL (5.0-30.0); SODIUM LEVEL 130 MEQ/L (136-145); THYROID STIMULATING HORMONE 0.061 uIU/ML (0.358-3.740); TOTAL PROTEIN 7.1 GM/DL (6.4-8.2)
[2017-08-04] MEDS: THIAMINE 100 MG TAB PO ×2 (09:00→20:36)
[2017-08-04] MEDS: PALIPERIDONE 3 MG ER TAB (INVEGA) PO ×3 (09:00→20:36)
[2017-08-04] MEDS: POTASSIUM CHLORIDE 10 MEQ SR TABLET PO (09:41)
[2017-08-04 11:30] LABS: FREE T4 1.21 NG/DL (0.76-1.46)
[2017-08-04] MEDS ORDERED: LORazepam 2 MG TAB PO (13:15)
[2017-08-04] MEDS ORDERED: MOM 30ML SUSPENSION UDC PO (13:15)
[2017-08-04] MEDS ORDERED: MAALOX 30 ML SUSP *UDC PO (13:15)
[2017-08-04] MEDS: MULTIVITAMINS/MINERALS THERAP 1 TAB PO (15:44)
[2017-08-04] MEDS: FOLIC ACID 1 MG TAB PO (15:44)
[2017-08-04] MEDS: NICOTINE 14 MG/24 HR TRANSDERMAL TD (15:45)
[2017-08-04] MEDS: LORazepam 1 MG TAB PO (17:47)
[2017-08-04] MEDS: OLANZapine ORAL DISINTEGRATING TAB 5MG PO (22:00)
[2017-08-04] MEDS: MIRTAZAPINE 15 MG TAB PO (22:01)
[2017-08-04] MEDS ORDERED: LORazepam 2 MG/ML VIAL (J2060) As Ordered (23:02)
[2017-08-04] MEDS ORDERED: HALOPERIDOL 5 MG/ML VIAL (J1630) As Ordered (23:03)
[2017-08-04] MEDS ORDERED: diphenhydrAMINE INJ 50MG/ML VIAL (J1200) As Ordered (23:03)
[2017-08-04] MEDS: diphenhydrAMINE INJ 50MG/ML VIAL (J1200) IM (23:13)
[2017-08-04] MEDS: LORazepam 2 MG/ML VIAL (J2060) IM (23:13)
[2017-08-04] MEDS: HALOPERIDOL 5 MG/ML VIAL (J1630) IM (23:14)
[2017-08-05] MEDS: DIVALPROEX 500MG *ER* TAB PO ×2 (09:00→14:01)
[2017-08-05] MEDS: MULTIVITAMINS/MINERALS THERAP 1 TAB PO (09:53)
[2017-08-05] MEDS: FOLIC ACID 1 MG TAB PO (09:53)
[2017-08-05] MEDS: NICOTINE 14 MG/24 HR TRANSDERMAL TD (09:54)
[2017-08-05] MEDS: THIAMINE 100 MG TAB PO ×2 (09:54→21:17)
[2017-08-05] MEDS: PALIPERIDONE 3 MG ER TAB (INVEGA) PO ×4 (09:54→22:22)
[2017-08-05 11:33] LABS: HEMATOCRIT 43.8 % (42.0-52.0); HEMOGLOBIN 14.7 g/dl (13.5-17.5); MEAN CORPUSCULAR HEMOGLOBIN 29.5 pg (27.0-33.0); MEAN CORPUSCULAR HGB CONC 33.6 g/dl (32.0-36.5); PLATELET COUNT, AUTOMATED 110 10^3/uL (150-450); RED BLOOD COUNT 4.98 10^6/uL (4.30-6.10); RED CELL DISTRIBUTION WIDTH 13.9 % (11.5-14.5); WHITE BLOOD COUNT 5.8 10^3/uL (4.0-10.0)
[2017-08-05] MEDS: PALIPERIDONE PALMITATE 234 MG/1.5 ML INJ (INVEGA SUSTENNA)(J2426) IM (11:47)
[2017-08-05 11:57] LABS: ALBUMIN 3.3 GM/DL (3.2-5.2); ALBUMIN/GLOBULIN RATIO 0.89 (1.00-1.93); ALKALINE PHOSPHATASE 103 U/L (45-117); ALT/SGPT 64 U/L (12-78); ANION GAP 4 MEQ/L (8-16); AST/SGOT 105 U/L (7-37); BILIRUBIN,TOTAL 0.9 MG/DL (0.2-1.0); BLOOD UREA NITROGEN 6 MG/DL (7-18); CALCIUM LEVEL 8.7 MG/DL (8.5-10.1); CARBON DIOXIDE LEVEL 30 MEQ/L (21-32); CHLORIDE LEVEL 104 MEQ/L (98-107); CREATININE FOR GFR 0.85 MG/DL (0.70-1.30); GLOMERULAR FILTRATION RATE > 60.0 (>60); GLUCOSE, FASTING 135 MG/DL (70-100); POTASSIUM SERUM 3.8 MEQ/L (3.5-5.1); SODIUM LEVEL 138 MEQ/L (136-145)
[2017-08-05] MEDS: GABAPENTIN 400 MG CAP PO ×2 (16:20→21:17)
[2017-08-05] MEDS: QUEtiapine FUMARATE 50 MG TAB PO (21:17)
[2017-08-06] MEDS: DIVALPROEX 500MG *ER* TAB PO (08:12)
[2017-08-06] MEDS: GABAPENTIN 400 MG CAP PO ×3 (08:12→21:46)
[2017-08-06] MEDS: THIAMINE 100 MG TAB PO ×2 (08:12→21:46)
[2017-08-06] MEDS: NICOTINE 14 MG/24 HR TRANSDERMAL TD (08:13)
[2017-08-06] MEDS: PALIPERIDONE 3 MG ER TAB (INVEGA) PO ×2 (08:13→21:46)
[2017-08-06] MEDS: MULTIVITAMINS/MINERALS THERAP 1 TAB PO (08:13)
[2017-08-06] MEDS: FOLIC ACID 1 MG TAB PO (08:13)
[2017-08-06 20:44] LABS: CHLAMYDIA DNA AMPLIFICATION NEGATIVE (NEGATIVE); GC DNA AMPLIFICATION NEGATIVE (NEGATIVE)
[2017-08-06] MEDS: QUEtiapine FUMARATE 50 MG TAB PO (21:46)
[2017-08-07 07:14] LABS: MEAN CORPUSCULAR HEMOGLOBIN 29.9 pg (27.0-33.0); MEAN CORPUSCULAR HGB CONC 32.6 g/dl (32.0-36.5); MEAN CORPUSCULAR VOLUME 91.9 fl (80.0-96.0); PLATELET COUNT, AUTOMATED 121 10^3/uL (150-450); RED BLOOD COUNT 4.68 10^6/uL (4.30-6.10); RED CELL DISTRIBUTION WIDTH 14.6 % (11.5-14.5); WHITE BLOOD COUNT 8.4 10^3/uL (4.0-10.0)
[2017-08-07 07:43] LABS: ALBUMIN 3.2 GM/DL (3.2-5.2); ALBUMIN/GLOBULIN RATIO 0.94 (1.00-1.93); ALKALINE PHOSPHATASE 85 U/L (45-117); ALT/SGPT 59 U/L (12-78); ANION GAP 6 MEQ/L (8-16); AST/SGOT 64 U/L (7-37); BILIRUBIN,TOTAL 0.3 MG/DL (0.2-1.0); BLOOD UREA NITROGEN 9 MG/DL (7-18); CALCIUM LEVEL 8.2 MG/DL (8.5-10.1); CARBON DIOXIDE LEVEL 27 MEQ/L (21-32); CHLORIDE LEVEL 111 MEQ/L (98-107); CREATININE FOR GFR 0.79 MG/DL (0.70-1.30); FREE THYROXINE INDEX 2.6 % (1.4-3.8); GLOMERULAR FILTRATION RATE > 60.0 (>60); GLUCOSE, FASTING 98 MG/DL (70-100); POTASSIUM SERUM 3.8 MEQ/L (3.5-5.1); SODIUM LEVEL 144 MEQ/L (136-145); T UPTAKE 37 % (33-40); THYROID STIMULATING HORMONE 0.691 uIU/ML (0.358-3.740); THYROXINE (T4) 7.1 UG/DL (4.5-12.0); TOTAL PROTEIN 6.6 GM/DL (6.4-8.2)
[2017-08-07] MEDS: DIVALPROEX 500MG *ER* TAB PO (09:04)
[2017-08-07] MEDS: FOLIC ACID 1 MG TAB PO (09:04)
[2017-08-07] MEDS: GABAPENTIN 400 MG CAP PO ×3 (09:04→21:38)
[2017-08-07] MEDS: NICOTINE 14 MG/24 HR TRANSDERMAL TD (09:04)
[2017-08-07] MEDS: PALIPERIDONE 3 MG ER TAB (INVEGA) PO ×2 (09:04→21:38)
[2017-08-07] MEDS: MULTIVITAMINS/MINERALS THERAP 1 TAB PO (09:04)
[2017-08-07] MEDS: QUEtiapine FUMARATE 50 MG TAB PO (21:38)
[2017-08-07] MEDS: ACETAMINOPHEN TAB 650MG DOSE (2X325MG) PO (23:46)
[2017-08-07] MEDS: MIRTAZAPINE 15 MG TAB PO (23:46)
[2017-08-08] MEDS: NICOTINE 14 MG/24 HR TRANSDERMAL TD (09:00)
[2017-08-08] MEDS: PALIPERIDONE PALMITATE 156 MG/1ML INJ(INVEGA SUSTENNA)(J2426) IM (09:15)
[2017-08-08] MEDS: DIVALPROEX 500MG *ER* TAB PO (09:51)
[2017-08-08] MEDS: GABAPENTIN 400 MG CAP PO (09:51)
[2017-08-08] MEDS: MULTIVITAMINS/MINERALS THERAP 1 TAB PO (09:51)
[2017-08-08] MEDS: FOLIC ACID 1 MG TAB PO (09:51)
[2017-08-08 12:19] LABS: HEPATITIS C VIRUS ABY INDEX < 0.0 INDEX (<0.8)
[2017-08-08 12:20] LABS: HIV 1&2 SCREEN CENTAUR NEGATIVE (NEGATIVE)
== END 2017-08-08 13:20 | disposition home or self-care (01) | DRG 885 ==
LOC: M ED 08:50 → M ED INP 13:01 → M PSY 14:10
DX: F20.0 Paranoid schizophrenia (principal); E87.1 Hypo-osmolality and hyponatremia; F17.210 Nicotine dependence, cigarettes, uncomplicated; D69.6 Thrombocytopenia, unspecified; E87.6 Hypokalemia; F43.10 Post-traumatic stress disorder, unspecified; F10.10 Alcohol abuse, uncomplicated; Z81.8 Family history of other mental and behavioral disorders; Z91.5 Personal history of self-harm; Z62.811 Personal history of psychological abuse in childhood; Z62.812 Personal history of neglect in childhood; Z91.14 Patient's other noncompliance with medication regimen; Z79.899 Other long term (current) drug therapy

== ENCOUNTER 2017-11-13 05:21 | Emergency (ER) | payer OTHER ==
[2017-11-13 07:34] LABS: HEMATOCRIT 44.2 % (42.0-52.0); MEAN CORPUSCULAR HEMOGLOBIN 29.9 pg (27.0-33.0); MEAN CORPUSCULAR HGB CONC 33.9 g/dl (32.0-36.5); PLATELET COUNT, AUTOMATED 213 10^3/uL (150-450); RED BLOOD COUNT 5.02 10^6/uL (4.30-6.10); RED CELL DISTRIBUTION WIDTH 14.6 % (11.5-14.5); WHITE BLOOD COUNT 6.6 10^3/uL (4.0-10.0)
[2017-11-13 08:03] LABS: AMPHETAMINES LEVEL URINE NEGATIVE (NEGATIVE); BARBITURATES URINE NEGATIVE (NEGATIVE); BENZODIAZEPINES URINE NEGATIVE (NEGATIVE); CANNABINOIDS URINE NEGATIVE (NEGATIVE); COCAINE METABOLITE URINE NEGATIVE (NEGATIVE); METHADONE URINE NEGATIVE (NEGATIVE); OPIATES URINE NEGATIVE (NEGATIVE); PHENCYCLIDINE URINE NEGATIVE (NEGATIVE)
[2017-11-13 08:12] LABS: ALBUMIN 3.9 GM/DL (3.2-5.2); ALBUMIN/GLOBULIN RATIO 0.87 (1.00-1.93); ALKALINE PHOSPHATASE 84 U/L (45-117); ALT/SGPT 24 U/L (12-78); ANION GAP 13 MEQ/L (8-16); AST/SGOT 31 U/L (7-37); BILIRUBIN,DIRECT < 0.1 MG/DL (0.0-0.2); BILIRUBIN,TOTAL 0.1 MG/DL (0.2-1.0); BLOOD UREA NITROGEN 4 MG/DL (7-18); CALCIUM LEVEL 8.2 MG/DL (8.5-10.1); CARBON DIOXIDE LEVEL 22 MEQ/L (21-32); CHLORIDE LEVEL 106 MEQ/L (98-107); CREATININE FOR GFR 0.68 MG/DL (0.70-1.30); ETHYL ALCOHOL (ETHANOL) 0.373 % (0.000-0.010); GLOMERULAR FILTRATION RATE > 60.0 (>60); GLUCOSE, FASTING 122 MG/DL (70-100); POTASSIUM SERUM 4.1 MEQ/L (3.5-5.1); SODIUM LEVEL 141 MEQ/L (136-145); THYROID STIMULATING HORMONE 0.167 uIU/ML (0.358-3.740); TOTAL PROTEIN 8.4 GM/DL (6.4-8.2)
[2017-11-13 08:13] LABS: ACETAMINOPHEN LEVEL < 2.0 UG/ML (10.0-30.0)
== END 2017-11-13 08:31 | disposition home or self-care (01) ==
LOC: M ED 05:21
DX: F10.229 Alcohol dependence with intoxication, unspecified (principal); Y90.1 Blood alcohol level of 20-39 mg/100 ml; F33.9 Major depressive disorder, recurrent, unspecified; F43.10 Post-traumatic stress disorder, unspecified; F25.9 Schizoaffective disorder, unspecified; Z79.899 Other long term (current) drug therapy
CPT/HCPCS: 80320

== ENCOUNTER 2017-12-17 21:52 | Emergency (ER) | payer OTHER ==
[2017-12-17 22:19] LABS: HEMOGLOBIN 14.2 g/dl (13.5-17.5); MEAN CORPUSCULAR HEMOGLOBIN 30.1 pg (27.0-33.0); MEAN CORPUSCULAR HGB CONC 34.6 g/dl (32.0-36.5); MEAN CORPUSCULAR VOLUME 86.9 fl (80.0-96.0); PLATELET COUNT, AUTOMATED 210 10^3/uL (150-450); RED BLOOD COUNT 4.72 10^6/uL (4.30-6.10); WHITE BLOOD COUNT 6.9 10^3/uL (4.0-10.0)
[2017-12-17 22:44] LABS: AMPHETAMINES LEVEL URINE NEGATIVE (NEGATIVE); BARBITURATES URINE NEGATIVE (NEGATIVE); BENZODIAZEPINES URINE NEGATIVE (NEGATIVE); CANNABINOIDS URINE NEGATIVE (NEGATIVE); COCAINE METABOLITE URINE NEGATIVE (NEGATIVE); METHADONE URINE NEGATIVE (NEGATIVE); OPIATES URINE NEGATIVE (NEGATIVE); PHENCYCLIDINE URINE NEGATIVE (NEGATIVE)
[2017-12-17 22:55] LABS: ALBUMIN 4.3 GM/DL (3.2-5.2); ALBUMIN/GLOBULIN RATIO 1.02 (1.00-1.93); ALKALINE PHOSPHATASE 84 U/L (45-117); ALT/SGPT 71 U/L (12-78); ANION GAP 11 MEQ/L (8-16); AST/SGOT 102 U/L (7-37); BILIRUBIN,DIRECT 0.2 MG/DL (0.0-0.2); BILIRUBIN,TOTAL 0.4 MG/DL (0.2-1.0); BLOOD UREA NITROGEN 4 MG/DL (7-18); CALCIUM LEVEL 8.9 MG/DL (8.5-10.1); CARBON DIOXIDE LEVEL 26 MEQ/L (21-32); CHLORIDE LEVEL 99 MEQ/L (98-107); CREATININE FOR GFR 0.75 MG/DL (0.70-1.30); ETHYL ALCOHOL (ETHANOL) 0.381 % (0.000-0.010); GLOMERULAR FILTRATION RATE > 60.0 (>60); GLUCOSE, FASTING 95 MG/DL (70-100); SALICYLATE LEVEL 8.8 MG/DL (5.0-30.0); SODIUM LEVEL 136 MEQ/L (136-145); THYROID STIMULATING HORMONE 0.159 uIU/ML (0.358-3.740); TOTAL PROTEIN 8.5 GM/DL (6.4-8.2)
[2017-12-17 22:58] LABS: ACETAMINOPHEN LEVEL < 2.0 UG/ML (10.0-30.0)
== END 2017-12-18 08:15 | disposition home or self-care (01) ==
LOC: M ED 21:52
DX: F10.120 Alcohol abuse with intoxication, uncomplicated (principal); F25.9 Schizoaffective disorder, unspecified; Z79.899 Other long term (current) drug therapy
CPT/HCPCS: 80320

== ENCOUNTER → 2018-02-17 | Outpatient (CLI) | payer OTHER ==
[2018-02-17 13:33] LABS: ESTIMATED AVERAGE GLUCOSE 108 MG/DL (60-110); HEMOGLOBIN A1c 5.4 %
[2018-02-17 15:48] LABS: CHOLESTEROL LEVEL 208 MG/DL (< 200); CHOLESTEROL LEVEL 208 MG/DL (<200); CHOLESTEROL RISK RATIO 6.117 (<5); HDL CHOLESTEROL 34 MG/DL (>40); LDL CHOLESTEROL 130 MG/DL (<100); NON-HDL-C 174 MG/DL; TRIGLYCERIDES LEVEL 218 MG/DL (<150); VALPROIC ACID (DEPAKOTE) 27.8 UG/ML (50.0-100.0)
== END ==
LOC: M WUC 08:54
DX: Z51.81 Encounter for therapeutic drug level monitoring (principal); Z79.899 Other long term (current) drug therapy
CPT/HCPCS: 80164

== ENCOUNTER → 2018-04-20 | Outpatient (REF) | payer OTHER ==
[~2018-04-20] MED LIST changes: +ACET650T3 PO; +BACI50OI EXT; +CEPH500C PO; +DEPA500T2 PO; +DIVA250T67 PO; +ELIM5CRE2 TOP; +GABA-845 PO; +HYDR5CR; +INVE156I IM; +LATU120T PO; +LATU1TAB PO; +LATU20TA PO; +LATU80TA PO; +MIRT45TA4 PO; +NICO14DI3 TD; +NICO21DI34 TD; +NICO2GUM34 PO; +NICO2GUM40 PO; +NICODIS2 TD; +OLAN5ZYD PO; +TAB-TAB PO
[2018-04-20 14:26] LABS: CHLAMYDIA DNA AMPLIFICATION NEGATIVE (NEGATIVE); GC DNA AMPLIFICATION NEGATIVE (NEGATIVE)
== END ==
LOC: M LAB REF 12:00
PROVIDERS: ATTEND Physician Assistant
DX: Z11.3 Encounter for screening for infections with a predominantly sexual mode of transmission (principal)

== ENCOUNTER → 2018-07-24 | Outpatient (CLI) | payer OTHER ==
[2018-07-24 14:42] LABS: BASO # 0.1 10^3/uL (0.0-0.2); BASO % 0.9 % (0.0-1.0); EOS # 0.2 10^3/uL (0.0-0.50); EOS % 3.2 % (0.0-3.0); HEMATOCRIT 42.1 % (42.0-52.0); HEMOGLOBIN 13.9 g/dl (13.5-17.5); MEAN CORPUSCULAR HEMOGLOBIN 28.8 pg (27.0-33.0); MEAN CORPUSCULAR VOLUME 87.2 fl (80.0-96.0); MONO # 0.8 10^3/uL (0.0-0.8); MONO % 12.3 % (0.0-5.0); NEUTROPHILS # 3.5 10^3/uL (1.8-7.7); NEUTROPHILS % 53.4 % (36.0-66.0); PLATELET COUNT, AUTOMATED 142 10^3/uL (150-450); RED BLOOD COUNT 4.83 10^6/uL (4.30-6.10); WHITE BLOOD COUNT 6.5 10^3/uL (4.0-10.0)
[2018-07-24 15:00] LABS: HEMOGLOBIN A1c 5.4 %
[2018-07-24 15:14] LABS: ALBUMIN 3.9 GM/DL (3.2-5.2); ALT/SGPT 114 U/L (12-78); BILIRUBIN,TOTAL 0.5 MG/DL (0.2-1.0); BLOOD UREA NITROGEN 4 MG/DL (7-18); CARBON DIOXIDE LEVEL 28 MEQ/L (21-32); CHLORIDE LEVEL 101 MEQ/L (98-107); CREATININE FOR GFR 0.89 MG/DL (0.70-1.30); GLOMERULAR FILTRATION RATE > 60.0 (>60); GLUCOSE, FASTING 100 MG/DL (70-100); POTASSIUM SERUM 3.6 MEQ/L (3.5-5.1); SODIUM LEVEL 137 MEQ/L (136-145); TOTAL PROTEIN 7.6 GM/DL (6.4-8.2)
[2018-07-24 15:19] LABS: TESTOSTERONE 340 NG/DL (241-827)
[2018-07-24 15:58] LABS: HEPATITIS C VIRUS ABY INDEX 0.1 INDEX (<0.8)
[2018-07-24 16:00] LABS: HIV 1&2 SCREEN CENTAUR NEGATIVE (NEGATIVE)
[2018-07-24 16:24] LABS: CHLAMYDIA DNA AMPLIFICATION NEGATIVE (NEGATIVE); GC DNA AMPLIFICATION NEGATIVE (NEGATIVE)
== END ==
LOC: M LAB 13:46
PROVIDERS: ATTEND Family Medicine
DX: Z51.81 Encounter for therapeutic drug level monitoring (principal); Z20.2 Contact with and (suspected) exposure to infections with a predominantly sexual mode of transmission; R73.03 Prediabetes; N52.2 Drug-induced erectile dysfunction

== ENCOUNTER → 2018-07-30 | Outpatient (REF) | payer OTHER ==
[~2018-07-30] MED LIST changes: -NICO2GUM34 PO; +NICO2GUM50 PO
[2018-07-31 14:50] LABS: CHLAMYDIA DNA AMPLIFICATION NEGATIVE (NEGATIVE); GC DNA AMPLIFICATION NEGATIVE (NEGATIVE)
== END ==
LOC: M LAB REF 14:40
PROVIDERS: ATTEND Physician Assistant
DX: Z11.3 Encounter for screening for infections with a predominantly sexual mode of transmission (principal)

== ENCOUNTER → 2019-07-06 | Outpatient (REF) | payer OTHER ==
[2019-07-06 18:50] LABS: CHLAMYDIA DNA AMPLIFICATION NEGATIVE (NEGATIVE); GC DNA AMPLIFICATION NEGATIVE (NEGATIVE)
== END ==
LOC: M LAB REF 16:21
PROVIDERS: ATTEND Physician Assistant Medical
DX: Z11.3 Encounter for screening for infections with a predominantly sexual mode of transmission (principal)

== ENCOUNTER 2020-05-12 16:39 | Inpatient (IN) | payer MEDICARE, MEDICAID ==
[~2020-05-12] VITALS: Ht 185.4 cm; Wt 77.3 kg
[~2020-05-12 16:39] MED LIST changes: -TAB-TAB PO; +TAB-TAB2 PO
--- OUTSIDE RECORDS SUMMARY | 2020-05-12 16:44 | CCD ---
Author Author Darion Gonzalez Organization Unknown Address [address] [address] Phone Care Team Providers Care Sybase Developer Name Role Phone Joni Gonzalez PCP Allergies, Adverse Reactions, Alerts No Data in Section Problem List Concept Problem Description Status Start Date Created Date Resolv ed Date Snomed Code F20.0 Paranoid schizophrenia Active 07/11/2017 07/11/2017 F10.20 Alcohol Use Disorder, Severe Active 05/02/2020 F17.200 Tobacco Use Disorder, Moderate Active Medications Rx Norm Medication Route Route Concept Start Date Stop Date Dosage Ryder quency Duration Formula Strength Dosage Form Dosage Form Code Dosage Description Medication Id Account Npid Author First Name Author Last Name Taxonomy Code Taxonomy Desc Phone Number [phone] gabapentin by mouth [id number] 11/21/2019 three times a day 400 mg capsule 38820 [phone] Daniela Michelle [id number] [facility] [phone] prazosin by mouth [id number] 11/21/2019 at bedtime 2 mg capsul e 07737 [id number] Daniela Michelle [id number] Psychiatric/Mental Health [phone] Social History Social History Element Description Concept Effective Date Smoking Status Unknown if ever smoked [id number] Immunizations No Data in Section Vital Signs No Data in Section Procedures Date Concept Id Description Targeted Site Concept Targeted Site Concept Type 05/02/2020 25888 Extended Individual Psychotherapy - 45 min CPT Patient has no history of implantable de vices Encounters Encounter Start Date End Date Encounter Type Description Diagnosis Di agnosis Desc Location Author First Name Author Last Name Npid Taxonomy Cod e Taxonomy Desc Phone Number Location Addr1 Location Addr2 Location City Location [place] Zip [id number] 05/02/2020 05/02/2020 47735 Extended Individual Psych otherapy - 45 min F20.0 Paranoid schizophrenia [facility] [place] Coni Quinones [id number] [id number] [place] [id number] [address] [address] Plan of Treatment No Data in Section Lab Results No Data in Section Instructions No Data in Section Insurance Providers Insurance Id Policy Effective Date Policy Thru Date Company N christen [id number] 2018 Dual Complete Me dicare Community Plan [id number] 2018 MEDICAID
--- OUTSIDE RECORDS SUMMARY | 2020-05-12 16:44 | CCD ---
Author Author MichelleDarion Daniela Organization Unknown Address [address] [address] Phone Care Team Providers Care Ironworker Name Role Phone Daniela Martinez PCP Allergies, Adverse Reactions, Alerts No Data in Section Problem List Concept Problem Description Status Start Date Created Date Resolv ed Date Snomed Code F20.0 Paranoid schizophrenia Active 07/11/2017 07/11/2017 F10.20 Alcohol Use Disorder, Severe Active 04/10/2020 F17.200 Tobacco Use Disorder, Moderate Active 0 Medications Rx Norm Medication Route Route Concept Start Date Stop Date Dosage Ryder quency Duration Formula Strength Dosage Form Dosage Form Code Dosage Description Medication Id Account Npid Author First Name Author Last Name Taxonomy Code Taxonomy Desc Phone Number [phone] gabapentin by mouth [id number] 11/21/2019 three times a day 400 mg capsule 86563 [phone] Danielasalvador Martinez [id number] Psychiatric[facility]Mental [facility] [phone] prazosin by mouth [id number] 11/21/2019 at bedtime 2 mg capsul e 13635 [id number] Danieladuane Martinez [id number] Psychiatric/Mental Health [phone] paliperidone by mouth [id number] 01/16/2020 04/15/2020 once a day 30 6 mg tablet extended release 24hr 31277 [phone] Daniela Michelle [id number] Psychiatric/Mental Health [phone] Social History Social History Element Description Concept Effective Date Smoking Status Unknown if ever smoked [id number] Immunizations No Data in Section Vital Signs Encounter Date Height Ins Weight Lbs Bmi Bp Systolic Bp Diastoli c Oxygen Saturation Respiration Rate Pulse Rate Body Temp Head Circumference Heigh t Lying 04/10/2020 0.00 0.00 0.00 0 0 0.00 0 0 0.00 0.0 0.0 0 Procedures Date Concept Id Description Targeted Site Concept Targeted Site Concept Type 04/10/2020 96496-00 [facility] Telemed E/M Lvl 3--Est pt CPT 04/10/2020 69451-26 Telemed A/O 30" CPT Patient has no history of implantable de vices Encounters Encounter Start Date End Date Encounter Type Description Diagnosis Di agnosis Desc Location Author First Name Author Last Name Npid Taxonomy Cod e Taxonomy Desc Phone Number Location Addr1 Location Addr2 Location [facility] Location Sta te Location [facility] [id number] 04/10/2020 04/10/2020 64245-08 [facility] Telemed E/M Lvl 3--Est p t F20.0 Paranoid schizophrenia [facility] [id number] [id number] Psychiatric/Mental Health [phone] [address] [address] Plan of Treatment No Data in Section Lab Results No Data in Section Instructions No Data in Section Functional Cognitive Status No Data in Section Insurance Providers Insurance Id Policy Effective Date Policy Thru Date [employer] christen [id number] 2018 Dual Complete Me dicare Community Plan [id number] 2018 MEDICAID
--- OUTSIDE RECORDS SUMMARY | 2020-05-12 16:45 | CCD ---
Author Author Darion Gonzalez Organization Unknown Address [address] [place] [phone] Phone Care Team Providers Care Program Or Project Administrator Name Role Phone Joni Gonzalez PCP Allergies, Adverse Reactions, Alerts No Data in Section Problem List Concept Problem Description Status Start Date Created Date Resolv ed Date Snomed Code F20.0 Paranoid schizophrenia Active 07/11/2017 07/11/2017 F10.20 Alcohol Use Disorder, Severe Active 03/25/2020 F17.200 Tobacco Use Disorder, Moderate Active 0 Medications Rx Norm Medication Route Route Concept Start Date Stop Date Dosage Ryder quency Duration Formula Strength Dosage Form Dosage Form Code Dosage Description Medication Id Account Npid Author First Name Author Last Name Taxonomy Code Taxonomy Desc Phone Number [phone] gabapentin by mouth [id number] 11/21/2019 three times a day 400 mg capsule 56383 [phone] Daniela Michelle [id number] Psychiatric/Mental Health [phone] prazosin by mouth V77139 11/21/2019 at bedtime 2 mg capsul e 20102 [phone] Daniela Lyons [id number] Psychiatric/Mental Health [phone] paliperidone by mouth [id number] 01/16/2020 04/15/2020 once a day 30 6 mg tablet extended release 24hr 24948 [phone] Daniela Michelle [id number] Psychiatric/Mental Health [phone] Social History Social History Element Description Concept Effective Date Smoking Status Unknown if ever smoked [id number] Immunizations No Data in Section Vital Signs No Data in Section Procedures Date Concept Id Description Targeted Site Concept Targeted Site Concept Type 03/25/2020 15860 Extended Individual Psychotherapy - 45 min CPT Patient has no history of implantable de vices Encounters Encounter Start Date End Date Encounter Type Description Diagnosis Di agnosis Desc Location Author First Name Author Last Name Npid Taxonomy Cod e Taxonomy Desc Phone Number Location Addr1 Location Addr2 Location City Location Sta [place] Location Zip [id number] 03/25/2020 03/25/2020 40676 Extended Individual Psych otherapy - 45 min F20.0 Paranoid schizophrenia [facility] Keeshaelena Maierten [phone] [id number] Custodian Supervisor [phone] [address] [place] [address] [address] [place] [phone] Plan of Treatment No Data in Section Lab Results No Data in Section Instructions No Data in Section Insurance Providers Insurance Id Policy Effective Date Policy Thru Date Company N christen [id number] 2018 Dual Complete Me dicare Community Plan [id number] 2018 MEDICAID
--- OUTSIDE RECORDS SUMMARY | 2020-05-12 16:45 | CCD ---
Author Author [facility] Organization [facility] Address Unknown Phone Unavailable Care Team Providers Care Music Orchestrator Name Role Phone Armond Royal Unavailable Milo, C Oren Unavailable Unavailable [place], C Oren Unavailable Unavailable [place], C Oren Unavailable Unavailable [place], C Oren Unavailable Unavailable [place], C Oren Unavailable Unavailable [place], C Oren Unavailable Unavailable [place], C Oren Unavailable Unavailable Dwayne Karen Unavailable Nupur Martinez PMH-PALLET REPAIRER Unavailable Unavailable Nupur Martinez PMH-PALLET REPAIRER Unavailable Unavailable Nupur Martinez PMH-PALLET REPAIRER Unavailable Unavailable Nupur Martinez PMH-PALLET REPAIRER Unavailable Unavailable Nupur Martinez PMH-PALLET REPAIRER Unavailable Unavailable Nupur Martinez PMH-PALLET REPAIRER Unavailable Unavailable Joni Gonzalez Unavailable Clare Coe Unavailable ANIKET RODRIGUEZ Unavailable Unavailable Oneida Tariq Unavailable Re-disclosure Warning The records that you are about to access may contain information from federally-assisted alcohol or drug abuse programs. If such information is present, then the following federally mandated warning applies: This information has been disclosed to you from records protected by federal confidentiality rules (42 CFR part 2). The federal rules prohibit you from making any further disclosure of this information unless further disclosure is expressly permitted by the written consent of the person to whom it pertains or as otherwise permitted by 42 CFR part 2. A general authorization for the release of medical or other information is NOT sufficient for this purpose. The Federal rules restrict any use of the information to criminally investigate or prosecute any alcohol or drug abuse patient.The records that you are about to access may contain highly sensitive health information, the redisclosure of which is protected by Article 27-F of the [facility] Public Health law. If you continue you may have access to information: Regarding HIV / AIDS; Provided by facilities licensed or operated by the [facility] Office of Mental Health; or Provided by the [facility] Office for People With Developmental Disabilities. If such information is present, then the following [facility] mandated warning applies: This information has been disclosed to you from confidential records which are protected by state law. State law prohibits you from making any further disclosure of this information without the specific written consent of the person to whom it pertains, or as otherwise permitted by law. Any unauthorized further disclosure in violation of state law may result in a fine or group home sentence or both. A general authorization for the release of medical or other information is NOT sufficient authorization for further disc losure. Encounters Encounter Providers Location Date Indications Data Source(s ) Extended Individual Psychotherapy - 45 min Attender: Therese Gonzalez [facility] 05/02/2020 10:00:00 AM EST - 05/02/2020 10:00:00 AM EST [facility] ([facility]) Attender: Joni Gonzalez 05/02/2020 12:00:00 AM EST [facility] ([facility]) Outpatient Attender: Daniela Martinez [facility] 04/10/2020 02:30:00 AM EST - 04/10/2020 02:30:00 AM EST [facility] ([facility]) Attender: Daniela MASSEYAMAYA 04/10/2020 12: 00:00 AM EST [facility] ([facility]) Extended Individual Psychotherapy - 45 min Attender: Therese Gonzalez [facility] 03/28/2020 08:00:00 AM EST - 03/28/2020 08:00:00 AM EST [facility] ([facility]) Attender: Joni [facility] 03/28/2020 12:00:00 AM EST [facility] ([facility]) Extended Individual Psychotherapy - 45 min Attender: Therese Gonzalez [facility] 03/25/2020 01:45:00 AM EST - 03/25/2020 01:45:00 AM EST [facility] ([facility]) Attender: Joni [facility] 03/25/2020 12:00:00 AM EST [facility] ([facility]) Brief Individual Psychotherapy - 30 min Attender: Joni valentin [facility] 03/04/2020 03:15:00 AM EST - 03/04/2020 03:15:00 AM EST [facility] ([facility]) [facility] 12:00:00 AM EST [facility] ([facility]) Extended Individual Psychotherapy - 45 min Att[facility]: [facility]se [facility] 02/19/2020 01:45:00 AM EDT - 02/19/2020 01:45:00 AM EDT [facility] ([facility]) Attender: Joni [facility] 02/19/2020 12:00:00 AM EDT [facility] ([facility]) Extended Individual Psychotherapy - 45 min Attender: Therese Gonzalez [facility] 02/05/2020 01:45:00 AM EDT - 02/05/2020 01:45:00 AM EDT [facility] ([facility]) Attender: Joni Gonzalez 02/05/2020 12:00:00 AM EDT [facility] ([facility]) Outpatient Attender: Daniela Martinez [facility] 02/04/2020 04:00:00 AM EDT - 02/04/2020 04:00:00 AM EDT [facility] ([facility]) Attender: Daniela Martinez [facility] 02/04/2020 12: 00:00 AM EDT [facility] ([facility]) Extended Individual Psychotherapy - 45 min [facility]: [facility] 01/18/2020 11:15:00 AM EDT - 01/18/2020 11:15:00 AM EDT [facility] ([facility]) [facility] 01/18/2020 12:00:00 AM EDT [facility] ([facility]) Injectable Psychotropic Medication Administration (Inj ection Only) Attender: Oneida Tariq [facility] 10/25/2019 02:00:00 AM EDT - 10/25/2019 02:00:00 AM EDT [facility] ([facility]) Attender: Oneida Tariq 10/25/2019 12:00:00 AM EDT [facility] ([facility]) Injectable Psychotropic Medication Administration (Inj ection Only) Attender: Karen Rice [facility] 10/23/2019 11:30:00 AM EDT - 10/23/2019 11:30:00 AM EDT [facility] ([facility]) TEMPMHCTelemed 30" Psychotherapy Attender: Joni Gonzalez [facility] 10/23/2019 04:00:00 AM EDT - 10/23/2019 04:00:00 AM EDT [facility] ([facility]) Attender: Joni Gonzalez 10/23/2019 12:00:00 AM EDT [facility] ([facility]) Attender: Karen Rice 10/23/2019 12:00:00 AM EDT [facility] ([facility]) [facility] 12:02:[address] [facility] Outpatient Attender: ANIKET [facility] 10/04/2019 10:37:[address] [facility]: [facility] 10/02/2019 07:48:[address] [facility] Injectable Medication Administration w/ Monitoring & E ducation Attender: Karen Rice [facility] 10/02/2019 11:00:00 AM EDT - 10/02/2019 11:00:00 AM EDT [facility] ([facility]) Attender: Karen Rice 10/02/2019 12:00:00 AM EDT [facility] ([facility]) Injectable Medication Administration w/ Monitoring & E ducation Attender: Karen Rice [facility] 09/28/2019 01:30:00 AM EDT - 09/28/2019 01:30:00 AM EDT [facility] ([facility]) Attender: Karen Rice 09/28/2019 12:00:00 AM EDT [facility] ([facility]) [facility]patient [facility]: [facility] 09/22/2019 12:14:[address] [facility] [id number]"Psychotherapy Attender: Joni Gonzalez [facility] 09/20/2019 10:15:00 AM EDT - 09/20/2019 10:15:00 AM EDT [facility] ([facility]) Attender: Joni Gonzalez 09/20/2019 12:00:00 AM EDT [facility] ([facility]) [id number]"Psychotherapy [facility] 09/19/2019 02:00:00 AM EDT - 09/19/2019 02:00:00 AM EDT [facility] ([facility]) Attender: Joni Gonzalez 09/19/2019 12:00:00 AM EDT [facility] ([facility]) Outpatient Attender: Daniela BARBOSA [facility] 09/14/2019 03:00:00 AM EDT - 09/14/2019 03:00:00 AM EDT [facility] ([facility]) Attender: Daniela BARBOSA 09/14/2019 12: 00:00 AM EDT [facility] ([facility]) TEMPMHCTelemed 30" Psychotherapy [facility] 01:45:00 AM EDT - 09/03/2019 01:45:00 AM EDT [facility] ([facility]) [facility] 09/03/2019 12:00:00 AM EDT [facility] ([facility]) [id number]"Psychotherapy Attender: Joni Gonzalez [facility] 08/20/2019 01:00:00 AM EDT - 08/20/2019 01:00:00 AM EDT [facility] ([facility]) [facility]: [facility] 08/20/2019 12:00:00 AM EDT [facility] ([facility]) Outpatient Attender: Daniela BARBOSA [facility] 08/02/2019 10:30:00 AM EDT - 08/02/2019 10:30:00 AM EDT [facility] ([facility]) TEMPMHCTelemed 30" Psych[facility] 02:00:00 AM EDT - 08/02/2019 02:00:00 AM EDT [facility] ([facility]) Attender: Clare Coe 08/02/2019 12:00:00 AM EDT [facility] ([facility]) Attender: Daniela BARBOSA 08/02/2019 12: 00:00 AM EDT [facility] ([facility]) Outpatient Attender: ANIKET [facility] 07/20/2019 08:01:[address] [facility] TEMPMHCTelemed 30" Psychotherapy Attender: Clare Coe [facility] 07/19/2019 10:00:00 AM EDT - 07/19/2019 10:00:00 AM EDT [facility] ([facility]) Attender: Clare Saravanan 07/19/2019 12:00:00 AM EDT [facility] ([facility]) Extended Individual Psychotherapy - 45 min Attender: Vandana rodas Saravanan [facility] 07/12/2019 11:00:00 AM EDT - 07/12/2019 11:00:00 AM EDT [facility] ([facility]) Attender: Clare Xiaoh 07/12/2019 12:00:00 AM EDT [facility] ([facility]) Injectable Psychotropic Medication Administration (Inj ection Only) Attender: Karen Rice [facility] 07/06/2019 01:00:00 AM EDT - 07/06/2019 01:00:00 AM EDT [facility] ([facility]) Attender: Karen Rice 07/06/2019 12:00:00 AM EDT [facility] ([facility]) Injectable Psychotropic Medication Administration (Inj ection Only) Attender: Oneida Tariq [facility] 07/03/2019 11:30:00 AM EDT - 07/03/2019 11:30:00 AM EDT [facility] ([facility]) Attender: Oneida Tariq 07/03/2019 12:00:00 AM EDT [facility] ([facility]) Brief Individual Psychotherapy - 30 min Attender: Clare ervin [facility] 06/28/2019 02:45:00 AM EST - 06/28/2019 02:45:00 AM EST [facility] ([facility]) Attender: Clare Coe 06/28/2019 12:00:00 AM EST [facility] ([facility]) Outpatient Attender: Oren Pedraza [facility] 0 06/19/2019 02:45:00 AM EST - 06/19/2019 02:45:00 AM EST [facility] ([facility]) Attender: Oren Pedraza 06/19/2019 12:00:00 AM EST [facility] ([facility]: [facility] 06/08/2019 05:21:01 PM [facility] Outpatient Attender: ANIKET [facility] 06/08/2019 09:22:11 AM [facility] Outpatient Attender: ANIKET [facility] 06/08/2019 09:18:57 AM [facility] Extended Individual Psychotherapy - 45 min Attender: [facility] 06/08/2019 03:00:00 AM EST - 06/08/2019 03:00:00 AM EST [facility] ([facility] 12:00:00 AM EST [facility] ([facility]) Extended Individual Psychotherapy - 45 min Attender: [facility] 05/31/2019 10:45:00 AM EST - 05/31/2019 10:45:00 AM EST [facility] ([facility]) Attender: [facility] 05/31/2019 12:00:00 AM EST [facility] ([facility]) Outpatient Attender: ANIKET [facility] 05/04/2019 11:09:01 AM [facility] Injectable Psychotropic Medication Administration (Inj ection Only) Attender: Karen Rice [facility] 04/09/2019 01:00:00 AM EST - 04/09/2019 01:00:00 AM EST [facility] ([facility]) Attender: Karen Rice 04/09/2019 12:00:00 AM EST [facility] ([facility]) Injectable Medication Administration w/ Monitoring & E ducation Attender: Karen Rice [facility] 04/04/2019 01:00:00 AM EST - 04/04/2019 01:00:00 AM EST [facility] ([facility]) Attender: Karen Rice 04/04/2019 12:00:00 AM EST [facility] ([facility]) Injectable Medication Administration w/ Monitoring & E ducation Attender: Karen Dwayne [facility] 04/03/2019 01:15:00 AM EST - 04/03/2019 01:15:00 AM EST [facility] ([facility]) Attender: Karen Rice 04/03/2019 12:00:00 AM EST [facility] ([facility]) Brief Individual Psychotherapy - 30 min Attender: Armondsarita Dahl Yoanna [facility] 04/02/2019 11:30:00 AM EST - 04/02/2019 11:30:00 AM EST [facility] ([facility]) Attender: Armond Lenz 04/02/2019 12:00:0 0 AM EST [facility] ([facility]) Functional Status Medications Medication Brand Name Start Date Product Form Dose Route Admi nistrative Instructions Pharmacy Instructions Status Indications Reaction Description Data Source(s) 24 HR paliperidone 6 MG Extended Release Oral Tablet paliper idone 01/16/2020 12:00:00 AM EDT 6 mg by mouth completed [id number] pa liperidone by mouth [id number] 01/16/2020 04/15/2020 once a day 30 6 mg tablet extended release 24hr [id number] [id number] Daniela Martinez [id number] [facility] ([facility]) 24 HR paliperidone 6 MG Extended Release Oral Tablet paliper idone 01/16/2020 12:00:00 AM EDT 6 mg by mouth completed [id number] pa liperidone by mouth [id number] 01/16/2020 04/15/2020 once a day 30 6 mg tablet extended release 24hr 86498 [id number] Daniela Martinez [id number] [facility] ([facility]) Nicotine 2 MG Chewing Gum nicotine (polacrilex) 01/16/2020 12:00:00 AM EDT 2 mg completed [id number] nicotine (polacrilex) in [facility] 01/16/2020 03/16/2020 every four hours 30 2 mg gum as needed 16794 236895 [id number] Daniela Martinez [id number] [facility] ([facility]) 24 HR paliperidone 6 MG Extended Release Oral Tablet paliper idone 01/16/2020 12:00:00 AM EDT 6 mg by mouth completed [id number] pa liperidone by mouth [id number] 01/16/2020 04/15/2020 once a day 30 6 mg tablet extended release 24hr 06136 [id number] Daniela Martinez [id number] [facility] ([facility] quetiapine 100 MG Oral Tablet [Seroquel] Seroquel 01/16/2020 12 :00:00 AM EDT 100 mg by mouth completed [id number] Seroquel by mouth [id number] every night 100 mg tablet 34834 403572 [id number] Daniela dangelo [id number] [facility] ([facility]) Nicotine 2 MG Chewing Gum nicotine (polacrilex) 01/16/2020 12:00:00 AM EDT 2 mg completed [id number] nicotine (polacrilex) in [facility] 01/16/2020 03/16/2020 every four hours 30 2 mg gum as needed 12486 104397 [id number] Daniela Martinez [id number] [facility]) Propranolol Hydrochloride 40 MG Oral Tablet propranolol 11/21/2019 12:00:00 AM EDT 40 mg by mouth completed [id number] propranolol by [facility] [id number] 11/21/2019 03/16/2020 twice a day 30 40 mg tablet 05762 [id number] Daniela Martinez [id number] [facility]) gabapentin 400 MG Oral Capsule gabapentin 11/21/2019 12:00:00 AM EDT 400 mg by mouth completed [id number] gabapentin by mouth [id number] 11/20 three times a day 400 mg capsule 94916 [id number] Daniela Ribeiro [id number] [facility] ([facility]) Propranolol Hydrochloride 40 MG Oral Tablet propranolol 11/21/2019 12:00:00 AM EDT 40 mg by mouth completed [id number] propranolol by [facility] [id number] 11/21/2019 03/16/2020 twice a day 30 40 mg tablet 80937 [id number] Daniela Martinez [id number] [facility]) Prazosin 2 MG Oral Capsule prazosin 11/21/2019 12:00:00 AM EDT 2 mg by mouth completed 389783 prazosin by mouth [id number] 11/21/2019 at bedtime 2 mg capsule 34236 984492 [id number] Daniela Martinez [id number] [facility] ([facility]) Alprazolam 2 MG Oral Tablet alprazolam 06/27/2019 12:00:00 AM EST 2 mg by mouth completed 355803 alprazolam by mouth [id number] 201907/26/2019 30 2 mg tablet 40484 656798 [id number] Oren Pedraza [id number] [facility] ([facility]) Prazosin 2 MG Oral Capsule prazosin 06/19/2019 12:00:00 AM EST 2 mg by mouth completed 981665 prazosin by mouth [id number] 06/19/2019 at bedtime 30 2 mg capsule 65070 639779 [id number] Oren Pedraza 3 [id number] [facility] ([facility]) gabapentin 400 MG Oral Capsule gabapentin 06/19/2019 12:00:00 AM EST 400 mg completed [id number] gabapentin 06/19/201908/17 three times a day 30 400 mg capsule 70949 234071 [id number] Oren Pedraza 36 [id number] [facility] ([facility]) Prazosin 2 MG Oral Capsule prazosin 06/19/2019 12:00:00 AM EST 2 mg by mouth completed 431956 prazosin by mouth [id number] 06/19/2019 at bedtime 30 2 mg capsule 31355 882080 [id number] Oren Pedraza 3 [id number] [facility] ([facility]) 2.625 ML paliperidone palmitate 312 MG/ML Prefilled Sy ringe [Invega] Invega Trinza 06/19/2019 12:00:00 AM EST 819 mg/2.625 completed [id number] Invega Trinza intramuscularly 06/19/2019 06/21/2019 every three months 1 819 mg/2.625 mL syringe 50998 960078 [id number] Oren Pedraza [id number] [facility] ([facility]) gabapentin 400 MG Oral Capsule gabapentin 06/19/2019 12:00:00 AM EST 400 mg completed 340205 gabapentin 06/19/201908/17 three times a day 30 400 mg capsule 09898 365028 [id number] Oren Pedraza 36 [id number] [facility] ([facility]) gabapentin 400 MG Oral Capsule gabapentin 06/19/2019 12:00:00 AM EST 400 mg completed [id number] gabapentin 06/19/201908/17 three times a day 30 400 mg capsule 36717 539375 [id number] Oren Pedraza 36 [id number] [facility] ([facility]) Propranolol Hydrochloride 40 MG Oral Tablet propranolol 05/23/2019 12:00:00 AM EST 40 mg by mouth completed [id number] propranolol by [facility] [id number] 05/23/2019 08/18/2019 twice a day 30 40 mg tablet as directed 02663 452457 [id number] Oren Pedraza [id number] [facility] ([facility]) Propranolol Hydrochloride 40 MG Oral Tablet propranolol 05/23/2019 12:00:00 AM EST 40 mg by mouth completed [id number] propranolol by [facility] [id number] 05/23/2019 08/18/2019 twice a day 30 40 mg tablet as directed 87720 664320 [id number] Oren Pedraza [id number] [facility] ([facility]) Propranolol Hydrochloride 40 MG Oral Tablet propranolol 05/23/2019 12:00:00 AM EST 40 mg by mouth completed [id number] propranolol by [facility] [id number] 05/23/2019 08/18/2019 twice a day 30 40 mg tablet as directed 10651 913427 [id number] Oren Pedraza [id number] [facility] ([facility]) Prazosin 2 MG Oral Capsule prazosin 02/19/2019 12:00:00 AM EDT 2 mg by mouth completed [id number] prazosin by mouth [id number] 02/19/2019 at bedtime 30 2 mg capsule 42328 374527 [id number] Oren Pedraza 3 [id number] [facility] ([facility]) Mirtazapine 45 MG Oral Tablet mirtazapine 02/19/2019 12:00:00 AM EDT 45 mg completed [id number] mirtazapine 02/19/2019 06/19/2019 at bedtime 30 45 mg tablet 68484 185626 [id number] Oren Pedraza [id number] [facility] ([facility]) quetiapine 300 MG Oral Tablet quetiapine 02/19/2019 12:00:00 AM EDT 300 mg completed [id number] quetiapine 02/19/2019 06/19/2019 at bedtime 30 300 mg tablet 97634 688047 [id number] Oren Pedraza [id number] [facility] ([facility]) Mirtazapine 45 MG Oral Tablet mirtazapine 02/19/2019 12:00:00 AM EDT 45 mg completed [id number] mirtazapine 02/19/2019 06/19/2019 at bedtime 30 45 mg tablet 27730 682558 [id number] Oren Pedraza [id number] [facility] ([facility]) quetiapine 300 MG Oral Tablet quetiapine 02/19/2019 12:00:00 AM EDT 300 mg completed [id number] quetiapine 02/19/2019 06/19/2019 at bedtime 30 300 mg tablet 90050 802385 [id number] Oren Pedraza [id number] [facility] ([facility]) Mirtazapine 45 MG Oral Tablet mirtazapine 02/19/2019 12:00:00 AM EDT 45 mg completed [id number] mirtazapine 02/19/2019 06/19/2019 at bedtime 30 45 mg tablet 92993 [id number] Oren Pedraza [id number] [facility] ([facility]) Mirtazapine 45 MG Oral Tablet mirtazapine 02/19/2019 12:00:00 AM EDT 45 mg completed [id number] mirtazapine 02/19/2019 06/19/2019 at bedtime 30 45 mg tablet 74539 220639 [id number] Oren Pedraza [id number] [facility] ([facility]) quetiapine 300 MG Oral Tablet quetiapine 02/19/2019 12:00:00 AM EDT 300 mg completed [id number] quetiapine 02/19/2019 06/19/2019 at bedtime 30 300 mg tablet 13020 593468 [id number] Oren Pedraza [id number] [facility] ([facility]) quetiapine 300 MG Oral Tablet quetiapine 02/19/2019 12:00:00 AM EDT 300 mg completed [id number] quetiapine 02/19/2019 06/19/2019 at bedtime 30 300 mg tablet [id number] Oren Pedraza [id number] [facility] ([facility]) Prazosin 2 MG Oral Capsule prazosin 02/19/2019 12:00:00 AM EDT 2 mg by mouth completed [id number] prazosin by mouth [id number] 02/19/2019 at bedtime 30 2 mg capsule [id number] Oren Pedraza 3 [id number] Psych[facility] ([facility]) Insurance Providers Payer name Policy type / Coverage type Policy ID Covered constitution party ID Covered constitution party's relationship to toney Policy Toney Plan Information [facility] [id number] SP [id number] EMEDNY [id number] SP [id number] MEDICARE COMPLETE [id number] SP [id number] [facility] [id number] SP [id number] [facility] [id number] SP [id number] [facility] Secure Horizons P UNAVAILABLE S UNAVAILABLE Medicare O UNAVAILABLE S UNAVAILA [facility] Medicaid S UNAVAILABLE S UNAVAILA [facility] [id number] SP [id number] Managed Care - MVP P UNAVAILABLE S UNAVAILABLE [facility] I [id number] Self [id number] [facility] I [id number] Self [id number] ANSI-Not a Secondary Insurance [id number] ANSI-Not a Secondary Insurance [id number] MVP MCDHMO [id number] SP [id number] [facility] [id number] SP [id number] ANSI-Not a Secondary Insurance [id number] ANSI-Not a Secondary Insurance [id number] ANSI-Not a Secondary Insurance [id number] [facility] MVP ANUPAM [id number] SP [id number] ANSI-Not a Secondary Insurance [id number] ANSI-Not a Secondary Insurance [id number] TOTAL CARE MEDICAID/[place]ARAY [id number] Diana [id number] TOTAL CARE MEDICAID/[place]ARAY [id number] Diana [id number] COMMERCIAL GENERIC [id number] Diana E [id number] S [id number] 400 VALUE OPTIONS FOR MVP [id number] S [id number] MVP MCDHMO [id number] SP [id number] VALUE OPTIONS FOR MVP [id number] S [id number] [facility] PHYS[facility]IAN [id number] S [id number] MEDICAID [id number] SP [id number] UNHC COMMUNITY PLAN MCDHMO [id number] SP [id number] [facility] U [id number] Self [id number] EXCELLUS H [id number] Self [id number] [facility](MCAID) O [id number] S [id number] TOTAL CARE MEDICAID [id number] Diana [id number] TOTAL CARE MEDICAID [id number] Diana [id number] COMMERCIAL GENERIC UNAVAILABLE Diana UNAVAILABLE BCBS HMO [place] O [id number] S [id number] Problems, Conditions, and Diagnoses Code Display Name Description Problem Type Effective Dates Data Source(s) F17.200 Nicotine dependence, unspecified, uncomp licated Tobacco Use Disorder, Moderate Condition 05/02/2020 12:00:00 AM EST [facility] ([facility]) F10.20 Alcohol dependence, uncomplicated Alcohol Use Disorder , Severe Condition 05/02/2020 12:00:00 AM EST [facility] ([facility]) F20.0 Paranoid schizophrenia Paranoid schizophrenia Conditio n 05/02/2020 12:00:00 AM EST [facility] ([facility]) Surgeries/Procedures Procedure Description Date Indications Data Source(s) Extended Individual Psychotherapy - 45 min 05/02/2020 12:00:00 AM EST - 05/02/2020 12:00:00 AM EST [facility] ([facility]) Extended Individual Psychotherapy - 45 min 12:00:00 AM EST [facility] ([facility]) MHC Telemed E/M Lvl 3--Est pt 04/10/2020 12:00:00 AM EST - 04/10/2020 12:00:00 AM EST [facility] ([facility]) Telemed A/O 30" 04/10/2020 12:00:00 AM EST [facility] ([facility]) MHC Telemed E/M Lvl 3--Est pt 04/10/2020 12:00:[address] [facility] ([facility]) Extended Individual Psychotherapy - 45 min 03/28/2020 12:00:00 AM EST - 03/28/2020 12:00:00 AM EST [facility] ([facility]) Extended Individual Psychotherapy - 45 min 0 12:00:00 AM EST [facility] ([facility]) Extended Individual Psychotherapy - 45 min 03/25/2020 12:00:00 AM EST - 03/25/2020 12:00:00 AM EST [facility] ([facility]) Extended Individual Psychotherapy - 45 min 0 12:00:00 AM EST [facility] ([facility]) Brief Individual Psychotherapy - 30 min 03/04/2020 12:00:00 AM EST - 03/04/2020 12:00:00 AM EST [facility] ([facility]) Brief Individual Psychotherapy - 30 min 03/04/2020 12: 00:00 AM EST [facility] ([facility]) Extended Individual Psychotherapy - 45 min 02/19/2020 12:00:00 AM EDT - 02/19/2020 12:00:00 AM EDT [facility] ([facility]) Extended Individual Psychotherapy - 45 min 0 12:00:00 AM EDT [facility] ([facility]) Extended Individual Psychotherapy - 45 min 02/05/2020 12:00:00 AM EDT - 02/05/2020 12:00:00 AM EDT [facility] ([facility]) Extended Individual Psychotherapy - 45 min 0 12:00:00 AM EDT [facility] ([facility]) MHC Telemed E/M Lvl 3--Est pt 02/04/2020 12:00:00 AM EDT - 02/04/2020 12:00:00 AM EDT [facility] ([facility]) Telemed A/O 30" 02/04/2020 12:00:00 AM EDT [facility] ([facility]) MHC Telemed E/M Lvl 3--Est pt 02/04/2020 12:00:00 AM E DT [facility] ([facility]) Extended Individual Psychotherapy - 45 min 01/18/2020 12:00:00 AM EDT - 01/18/2020 12:00:00 AM EDT [facility] ([facility]) Extended Individual Psychotherapy - 45 min 0 12:00:00 AM EDT [facility] ([facility]) THERAPEUTIC PROPHYLACTIC/DX INJECTION SUBQ/IM 10/25/2019 12:00:00 AM EDT - 10/25/2019 12:00:00 AM EDT [facility] ([facility]) THERAPEUTIC PROPHYLACTIC/DX INJECTION SUBQ/IM 10/25/19 20 12:00:00 AM EDT [facility] ([facility]) TEMPMHCTelemed 30" Psychotherapy 020 12:00:00 AM EDT - 10/23/2019 12:00:00 AM EDT [facility] ([facility]) TEMPMHCTelemed 30" Psychotherapy 10/23/2019 12:00:00 A M EDT [facility] ([facility]) THERAPEUTIC PROPHYLACTIC/DX INJECTION SUBQ/IM 10/23/2019 12:00:00 AM EDT - 10/23/2019 12:00:00 AM EDT [facility] ([facility]) THERAPEUTIC PROPHYLACTIC/DX INJECTION SUBQ/IM 10/23/19 20 12:00:00 AM EDT [facility] ([facility]) Comprehensive medication services, per 15 minutes 10/02/2019 12:00:00 AM EDT - 10/02/2019 12:00:00 AM EDT [facility] ([facility]) Comprehensive medication services, per 15 minutes 10/02/2019 12:00:00 AM EDT [facility] ([facility]) Comprehensive medication services, per 15 minutes 09/28/2019 12:00:00 AM EDT - 09/28/2019 12:00:00 AM EDT [facility] ([facility]) Comprehensive medication services, per 15 minutes 09/28/2019 12:00:00 AM EDT [facility] ([facility]) [id number]"Psychotherapy 0 12:00:00 AM EDT - 09/20/2019 12:00:00 AM EDT [facility] ([facility]) [id number]"Psychotherapy 09/20/2019 12:00:00 AM EDT [facility] ([facility]) [id number]"Psychotherapy 0 12:00:00 AM EDT - 09/19/2019 12:00:00 AM EDT [facility] ([facility]) [id number]"Psychotherapy 09/19/2019 12:00:00 AM EDT [facility] ([facility]) MHC Telemed E/M Lvl 3--Est pt 09/14/2019 12:00:00 AM EDT - 09/14/2019 12:00:00 AM EDT [facility] ([facility]) Telemed A/O 30" 09/14/2019 12:00:00 AM EDT [facility] ([facility]) MHC Telemed E/M Lvl 3--Est pt 09/14/2019 12:00:00 AM E DT [facility] ([facility]) TEMPMHCTelemed 30" Psychotherapy 020 12:00:00 AM EDT - 09/03/2019 12:00:00 AM EDT [facility] ([facility]) TEMPMHCTelemed 30" Psychotherapy 09/03/2019 12:00:00 A M EDT [facility] ([facility]) [id number]"Psychotherapy 0 12:00:00 AM EDT - 08/20/2019 12:00:00 AM EDT [facility] ([facility]) [id number]"Psychotherapy 08/20/2019 12:00:00 AM EDT [facility] ([facility]) TEMPMHCTelemed 30" Psychotherapy 020 12:00:00 AM EDT - 08/02/2019 12:00:00 AM EDT [facility] ([facility]) TEMPMHCTelemed 30" Psychotherapy 08/02/2019 12:00:00 A M EDT [facility] ([facility]) MHC Telemed E/M Lvl 3--Est pt 08/02/2019 12:00:00 AM EDT - 08/02/2019 12:00:00 AM EDT [facility] ([facility]) Telemed A/O 30" 08/02/2019 12:00:00 AM EDT [facility] ([facility]) MHC Telemed E/M Lvl 3--Est pt 08/02/2019 12:00:00 AM E DT [facility] ([facility]) TEMPMHCTelemed 30" Psychotherapy 020 12:00:00 AM EDT - 07/19/2019 12:00:00 AM EDT [facility] ([facility]) TEMPMHCTelemed 30" Psychotherapy 07/19/2019 12:00:00 A M EDT [facility] ([facility]) Extended Individual Psychotherapy - 45 min 07/12/2019 12:00:00 AM EDT - 07/12/2019 12:00:00 AM EDT [facility] ([facility]) Extended Individual Psychotherapy - 45 min 0 12:00:00 AM EDT [facility] ([facility]) THERAPEUTIC PROPHYLACTIC/DX INJECTION SUBQ/IM 07/06/2019 12:00:00 AM EDT - 07/06/2019 12:00:00 AM EDT [facility] ([facility]) THERAPEUTIC PROPHYLACTIC/DX INJECTION SUBQ/IM 07/06/19 20 12:00:00 AM EDT [facility] ([facility]) THERAPEUTIC PROPHYLACTIC/DX INJECTION SUBQ/IM 07/03/2019 12:00:00 AM EDT - 07/03/2019 12:00:00 AM EDT [facility] ([facility]) THERAPEUTIC PROPHYLACTIC/DX INJECTION SUBQ/IM 07/03/19 20 12:00:00 AM EDT [facility] ([facility]) Brief Individual Psychotherapy - 30 min 06/28/2019 12:00:00 AM EST - 06/28/2019 12:00:00 AM EST [facility] ([facility]) Brief Individual Psychotherapy - 30 min 06/28/2019 12: 00:00 AM EST [facility] ([facility]) OFFICE OUTPATIENT VISIT 10 MINUTES 06/19 12:00:00 AM EST - 06/19/2019 12:00:00 AM EST [facility] ([facility]) OFFICE OUTPATIENT VISIT 10 MINUTES 06/19/2019 12:00:00 AM EST [facility] ([facility]) Extended Individual Psychotherapy - 45 min 06/08/2019 12:00:00 AM EST - 06/08/2019 12:00:00 AM EST [facility] ([facility]) Extended Individual Psychotherapy - 45 min 0 12:00:00 AM EST [facility] ([facility]) Extended Individual Psychotherapy - 45 min 05/31/2019 12:00:00 AM EST - 05/31/2019 12:00:00 AM EST [facility] ([facility]) Extended Individual Psychotherapy - 45 min 0 12:00:00 AM EST [facility] ([facility]) THERAPEUTIC PROPHYLACTIC/DX INJECTION SUBQ/IM 04/09/2019 12:00:00 AM EST - 04/09/2019 12:00:00 AM EST [facility] ([facility]) THERAPEUTIC PROPHYLACTIC/DX INJECTION SUBQ/IM 04/09/20 19 12:00:00 AM EST [facility] ([facility]) Comprehensive medication services, per 15 minutes 04/04/2019 12:00:00 AM EST - 04/04/2019 12:00:00 AM EST [facility] ([facility]) Comprehensive medication services, per 15 minutes 04/04/2019 12:00:00 AM EST [facility] ([facility]) Comprehensive medication services, per 15 minutes 04/03/2019 12:00:00 AM EST - 04/03/2019 12:00:00 AM EST [facility] ([facility]) Comprehensive medication services, per 15 minutes 04/03/2019 12:00:00 AM EST [facility] ([facility]) Brief Individual Psychotherapy - 30 min 04/02/2019 12:00:00 AM EST - 04/02/2019 12:00:00 AM EST [facility] ([facility]) Brief Individual Psychotherapy - 30 min 04/02/2019 12: 00:00 AM EST [facility] ([facility]) Results ID Date Data Source [id number] 06/07/2019 09:07:[address] [facility] Vital SignsBlood Pressure: 141/97 Patient History Medical History:mental healthFamily History:Social/Personal History: Smoking Status: current every day smokerAlcohol Use: CurrentlyCurrent Problems: DENTAL CARIES EXTENDING INTO PULP (ICD-521.03) (STY34-L68.63)Problem list reviewed during this update.Current Medications: * LARAZAPAN * PROPANOLOL * PERCIACINE * SERAQUIL * AVEGA Medication list reviewed during this update.No known medications.Allergy list reviewed during this update.No known allergies.Past Medical History:(reviewed - no changes required) mental health Dental Chart: Procedures:Type - CDT Code - Description B - (D0150) Comprehensive oral evaluation - new or established patient (Performed by Evie Tony DMD) B - (D0274) Bitewings, 4 radiographic images (Performed by Whitney Herrera RDH) B - (D0230) Intraoral, periapical, each additional radiographic image on Tooth # 11 (Performed by Whitney Herrera RDH) B - (D0220) Intraoral, periapical, first radi ographic image on Tooth # 6 (Performed by Whitney Herrera RDH) B - (D0230) Intraoral, periapical, each additional radiographic image on Tooth # 9 (Performed by Whitney Herrera RDH) Treatments:Type - CDT Code - Description T - (D2150) Amalgam, 2 surfaces, primary or permanent on Tooth # 5 on Tooth Surface DO (Performed by Whitney Herrera RDH) T - (D2150) Amalgam, 2 surfaces, primary or permanent on Tooth # 3 on Tooth Surface OM (Performed by Whitney Herrera RDH) T - (D2150) Amalgam, 2 surfaces, primary or permanent on Tooth # 31 on Tooth Surface OM (Performed by Whitney Herrera RDH) T - (D2140) Amalgam-one surface, primary or permanent on Tooth # 32 on Tooth Surface O (Performed by Whitney Herrera RDH) Existing:Type - CDT Code - Description[E] Decay On #16 Surface O, #3 Surface MO, #31 Surface MO, #32 Surface O, #5 Surface DO[E] Amalgam Orthodox On #14 Surface O, #15 Surface O, #18 Surface O, #2 Surface O, #3 Surface O, #31 Surface O[E] Missing - Fletcher and Root On #17 Surface O Region XR, #19 Surface O Region XR, #30 Surface O Region XR, #4 Surface O Region XR[E] Chipped On #18 Surface MB, #20 Surface D Chart Notes:dheeraj (Jun 07 2019 9:45AM): [facility](check BP next appointment). CC: none. Reviewed Xrays. Exam: caries detected. OCS: WNL IO/ EO completed, No significant hard findings upon clinical exam Pt was cooperative.OHI givenReferral: N/ANV:filling Possible referral on #16Juan Luiso Lino VANCEie by dheeraj (06/07/2019 9:45 AM): ; shahid (Jun 07 2019 9:40AM): [facility] with NEW patient- updated history. He had his teeth pulled that he was referred out for. 4 BW's, 3 PA's, C exam 1-4 mm probing. OH-Patient brushes sometimes everyday and NOT flossing regularlyMod gen marginal biofilm and mod sub.supra marginal/introproximal calculus on LA. Marginal tissue is red, inflamed with bleeding on scaling. OHI- Advise to brush 2x a day and floss everyday. Went over brushing along the gum line and flossing properly. Patient is cooperative. NV- A prophy 60/fillingsRWhitney castellon RDH by shahid (06/07/2019 9:40 AM): Tooth Notes and Watches:- Tooth 12 Watch: distal Whitney Herrera RDH by sraso (06/07/2019 9:29 AM): - Tooth 13 Watch: mesialJuan Luiso PINKYWhitney by sraso (06/07/2019 9:29 AM): - Tooth 16 Note: He may want to keep this or extract it- didn't know today.Sharon Whitney VANCE by sraso (06/07/2019 9:41 AM): - Tooth 28 Watch: distal Juan LuisWhitney carrillo RDH by sraso (06/07/2019 9:28 AM): - Tooth 29 Watch: mesial and distal Juan LuisWhitney carrillo RDH by sraso (06/07/2019 9:30 AM): Assessment & Plan Medications:LARAZAPANPROPANOLOLPERCIACINESERAQUILAVEGAMedication Changes:Added: * AVEGA* SERAQUIL* PERCIACINE* PROPANOLOL* LARAZAPANAllergies:No Known Allergies (updated 06/07/2019) Name Value Range Interpretation Code Description Data Cinthia rce(s) Supporting Document(s) Procedure Social History Code Duration Value Status Description Data Source(s ) Smoking 05/02/2020 12:00:00 AM EST Unknown if ever smoked comp leted Unknown if ever smoked [facility] ([facility]) Smoking 04/10/2020 12:00:00 AM EST Unknown if ever smoked comp leted Unknown if ever smoked [facility] ([facility]) Smoking 03/28/2020 12:00:00 AM EST Unknown if ever smoked comp leted Unknown if ever smoked [facility] ([facility]) Smoking 03/25/2020 12:00:00 AM EST Unknown if ever smoked comp leted Unknown if ever smoked [facility] ([facility]) Smoking 03/04/2020 12:00:00 AM EST Unknown if ever smoked comp leted Unknown if ever smoked [facility] ([facility]) Smoking 02/19/2020 12:00:00 AM EDT Unknown if ever smoked comp leted Unknown if ever smoked [facility] ([facility]) Smoking 02/05/2020 12:00:00 AM EDT Unknown if ever smoked comp leted Unknown if ever smoked [facility] ([facility]) Smoking 02/04/2020 12:00:00 AM EDT Unknown if ever smoked comp leted Unknown if ever smoked [facility] ([facility]) Smoking 01/18/2020 12:00:00 AM EDT Unknown if ever smoked comp leted Unknown if ever smoked [facility] ([facility]) Smoking 10/25/2019 12:00:00 AM EDT Unknown if ever smoked comp leted Unknown if ever smoked [facility] ([facility]) Smoking 10/23/2019 12:00:00 AM EDT Unknown if ever smoked comp leted Unknown if ever smoked [facility] ([facility]) Smoking 10/02/2019 12:00:00 AM EDT Unknown if ever smoked comp leted Unknown if ever smoked [facility] ([facility]) Smoking 09/28/2019 12:00:00 AM EDT Unknown if ever smoked comp leted Unknown if ever smoked [facility] ([facility]) Smoking 09/20/2019 12:00:00 AM EDT Unknown if ever smoked comp leted Unknown if ever smoked [facility] ([facility]) Smoking 09/19/2019 12:00:00 AM EDT Unknown if ever smoked comp leted Unknown if ever smoked [facility] ([facility]) Smoking 09/14/2019 12:00:00 AM EDT Unknown if ever smoked comp leted Unknown if ever smoked [facility] ([facility]) Smoking 09/03/2019 12:00:00 AM EDT Unknown if ever smoked comp leted Unknown if ever smoked [facility] ([facility]) Smoking 08/20/2019 12:00:00 AM EDT Unknown if ever smoked comp leted Unknown if ever smoked [facility] ([facility] Smoking 08/02/2019 12:00:00 AM EDT Unknown if ever smoked comp leted Unknown if ever smoked [facility] ([facility]) Smoking 07/19/2019 12:00:00 AM EDT Unknown if ever smoked comp leted Unknown if ever smoked [facility] ([facility]) Smoking 07/12/2019 12:00:00 AM EDT Unknown if ever smoked comp leted Unknown if ever smoked [facility] ([facility]) Smoking 07/06/2019 12:00:00 AM EDT Unknown if ever smoked comp leted Unknown if ever smoked [facility] ([facility]) Smoking 07/03/2019 12:00:00 AM EDT Unknown if ever smoked comp leted Unknown if ever smoked [facility] ([facility]) Smoking 06/28/2019 12:00:00 AM EST Unknown if ever smoked comp leted Unknown if ever smoked [facility] ([facility]) Smoking 06/19/2019 12:00:00 AM EST Unknown if ever smoked comp leted Unknown if ever smoked [facility] ([facility]) Smoking 06/08/2019 12:00:00 AM EST Unknown if ever smoked comp leted Unknown if ever smoked [facility] ([facility]) Smoking 05/31/2019 12:00:00 AM EST Unknown if ever smoked comp leted Unknown if ever smoked [facility] ([facility]) Smoking 04/09/2019 12:00:00 AM EST Unknown if ever smoked comp leted Unknown if ever smoked [facility] ([facility]) Smoking 04/04/2019 12:00:00 AM EST Unknown if ever smoked comp leted Unknown if ever smoked [facility] ([facility]) Smoking 04/03/2019 12:00:00 AM EST Unknown if ever smoked comp leted Unknown if ever smoked [facility] ([facility]) Smoking 04/02/2019 12:00:00 AM EST Unknown if ever smoked comp leted Unknown if ever smoked [facility] ([facility]) Vital Signs ID Date Data Source UNK Name Value Range Interpretation Code Description Data Source(s) Diastolic blood pressure 0 mm[Hg] Normal (applies to non-numeric results) 0 mm[Hg] [facility] ([facility]) Systolic blood pressure 0 mm[Hg] Normal (applies t o non-numeric results) 0 mm[Hg] [facility] ([facility]) Body mass index (BMI) [Ratio] 0.00 kg/m2 No rmal (applies to non-numeric results) 0.00 kg/m2 [facility] ([facility]) Body weight Measured 0.00 lbs Normal (applies to n on-numeric results) 0.00 lbs [facility] ([facility]) Body height 0.00 in Normal (applies to non-numeric resu lts) 0.00 in [facility] ([facility]) Diastolic blood pressure 0 mm[Hg] Normal (applies to non-numeric results) 0 mm[Hg] [facility] ([facility]) Systolic blood pressure 0 mm[Hg] Normal (applies t o non-numeric results) 0 mm[Hg] [facility] ([facility]) Body mass index (BMI) [Ratio] 0.00 kg/m2 No rmal (applies to non-numeric results) 0.00 kg/m2 [facility] ([facility]) Body weight Measured 0.00 lbs Normal (applies to n on-numeric results) 0.00 lbs [facility] ([facility]) Body height 0.00 in Normal (applies to non-numeric resu lts) 0.00 in [facility] ([facility]) Diastolic blood pressure 0 mm[Hg] Normal (applies to non-numeric results) 0 mm[Hg] [facility] ([facility]) Systolic blood pressure 0 mm[Hg] Normal (applies t o non-numeric results) 0 mm[Hg] [facility] ([facility]) Body mass index (BMI) [Ratio] 0.00 kg/m2 No rmal (applies to non-numeric results) 0.00 kg/m2 [facility] ([facility]) Body weight Measured 0.00 lbs Normal (applies to n on-numeric results) 0.00 lbs [facility] ([facility]) Body height 0.00 in Normal (applies to non-numeric resu lts) 0.00 in [facility] ([facility]) Diastolic blood pressure 0 mm[Hg] Normal (applies to non-numeric results) 0 mm[Hg] [facility] ([facility]) Systolic blood pressure 0 mm[Hg] Normal (applies t o non-numeric results) 0 mm[Hg] [facility] ([facility]) Body mass index (BMI) [Ratio] 0.00 kg/m2 No rmal (applies to non-numeric results) 0.00 kg/m2 [facility] [facility] ([facility]) Body weight Measured 0.00 lbs Normal (applies to n on-numeric results) 0.00 lbs [facility] ([facility]) Body height 0.00 in Normal (applies to non-numeric resu lts) 0.00 in [facility] ([facility]) Diastolic blood pressure 0 mm[Hg] Normal (applies to non-numeric results) 0 mm[Hg] [facility] ([facility]) Systolic blood pressure 0 mm[Hg] Normal (applies t o non-numeric results) 0 mm[Hg] [facility] ([facility]) Body mass index (BMI) [Ratio] 0.00 kg/m2 No rmal (applies to non-numeric results) 0.00 kg/m2 [facility] ([facility]) Body weight Measured 0.00 lbs Normal (applies to n on-numeric results) 0.00 lbs [facility]) Body height 0.00 in Normal (applies to non-numeric resu lts) 0.00 in [facility] ([facility])
--- OUTSIDE RECORDS SUMMARY | 2020-05-12 16:45 | CCD ---
Author Author Darion Gonzalez Joni Organization Unknown Address [address] [place] [phone] Phone Care Team Providers Care Rehab Tech Name Role Phone Joni Gonzalez PCP Allergies, Adverse Reactions, Alerts No Data in Section Problem List Concept Problem Description Status Start Date Created Date Resolv ed Date Snomed Code F20.0 Paranoid schizophrenia Active 07/11/2017 07/11/2017 F10.20 Alcohol Use Disorder, Severe Active 03/04/2020 F17.200 Tobacco Use Disorder, Moderate Active 0 Medications Rx Norm Medication Route Route Concept Start Date Stop Date Dosage Ryder quency Duration Formula Strength Dosage Form Dosage Form Code Dosage Description Medication Id Account Npid Author First Name Author Last Name Taxonomy Code Taxonomy Desc Phone Number [id number] gabapentin by mouth [id number] 11/21/2019 three times a day 400 mg capsule 78463 [id number] [id number] Daniela Martinez [id number] Psych[facility]ental [facility] [phone] prazosin by mouth [id number] 11/21/2019 at bedtime 2 mg capsul e 15316 980222 [id number] Daniela Martinez [id number] Psychiatric/Mental Health [phone] propranolol by mouth [id number] 11/21/2019 03/16/2020 twice a day 30 40 mg tablet 72001 [id number] [id number] Daniela Martinez [id number] P sychiatric/Mental Health [id number] 615371 nicotine (polacrilex) in mouth 01/16/2020 03/16/2020 crow ry four hours 30 2 mg gum as needed 59429 707648 [id number] Daniela Martinez [id number] Psychiatric/Mental Health [phone] 635317 paliperidone by mouth [id number] 01/16/2020 04/15/2020 once a day 30 6 mg tablet extended release 24hr 16286 570158 [id number] Daniela Martinez [id number] Psych[facility]Mental [facility] [id number] Social History Social History Element Description Concept Effective Date Smoking Status Unknown if ever smoked [id number] Immunizations No Data in Section Vital Signs No Data in Section Procedures Date Concept Id Description Targeted Site Concept Targeted Site Concept Type 03/04/2020 18904 Brief Individual Psychotherapy - 30 min CPT Patient has no history of implantable de vices Encounters Encounter Start Date End Date Encounter Type Description Diagnosis Di agnosis Desc Location Author First Name Author Last Name Npid Taxonomy Cod e Taxonomy Desc Phone Number Location Addr1 Location Addr2 Location [facility] Location Sta [place] Location Zip [id number] 03/04/2020 03/04/2020 34089 Brief Individual Psychoth erapy - 30 min F20.0 Paranoid schizophrenia [facility] Lisa Joni [phone] [id number] [employer] Set Up Operator [id number] [address] [place] [address] [place] [phone] Plan of Treatment No Data in Section Lab Results No Data in Section Instructions No Data in Section Insurance Providers Insurance Id Policy Effective Date Policy Thru Date Company N christen [id number] 2018 Dual Complete Me dicare Community Plan [id number] 2018 MEDICAID
--- OUTSIDE RECORDS SUMMARY | 2020-05-12 16:45 | CCD ---
Author Author Darion Gonzalez Organization Unknown Address [address] [place] [phone] Phone Care Team Providers Care Stuffer Name Role Phone Joni Gonzalez PCP Allergies, Adverse Reactions, Alerts No Data in Section Problem List Concept Problem Description Status Start Date Created Date Resolv ed Date Snomed Code F20.0 Paranoid schizophrenia Active 07/11/2017 07/11/2017 F10.20 Alcohol Use Disorder, Severe Active 03/28/2020 F17.200 Tobacco Use Disorder, Moderate Active 0 Medications Rx Norm Medication Route Route Concept Start Date Stop Date Dosage Ryder quency Duration Formula Strength Dosage Form Dosage Form Code Dosage Description Medication Id Account Npid Author First Name Author Last Name Taxonomy Code Taxonomy Desc Phone Number [id number] gabapentin by mouth [id number] 11/21/2019 three times a day 400 mg capsule 07558 [id number] Daniela Michelle [id number] Psychiatric/Mental Health [phone] prazosin by mouth K56429 11/21/2019 at bedtime 2 mg capsul e 16107 417319 [id number] Daniela [place] [id number] Psychiatric/Mental Health [phone] 815166 paliperidone by mouth P14740 01/16/2020 04/15/2020 once a day 30 6 mg tablet extended release 24hr 33213 171860 [phone] Daniela Michelle [id number] Psychiatric/Mental Health [phone] Social History Social History Element Description Concept Effective Date Smoking Status Unknown if ever smoked [id number] Immunizations No Data in Section Vital Signs No Data in Section Procedures Date Concept Id Description Targeted Site Concept Targeted Site Concept Type 03/28/2020 65484 Extended Individual Psychotherapy - 45 min CPT Patient has no history of implantable de vices Encounters Encounter Start Date End Date Encounter Type Description Diagnosis Di agnosis Desc Location Author First Name Author Last Name Npid Taxonomy Cod e Taxonomy Desc Phone Number Location Addr1 Location Addr2 Location City Location [place] Location Zip [id number] 03/28/2020 03/28/2020 60716 Extended Individual Psych otherapy - 45 min F20.0 Paranoid schizophrenia [facility] Keeshaelena Maierten [phone] [id number] 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
--- OUTSIDE RECORDS SUMMARY | 2020-05-12 16:45 | CCD ---
Author Author Darion Gonzalez Joni Organization Unknown Address [address] [place] [phone] Phone Care Team Providers Care Rotary Derrick Operator Name Role Phone Joni Gonzalez PCP Allergies, Adverse Reactions, Alerts No Data in Section Problem List Concept Problem Description Status Start Date Created Date Resolv ed Date Snomed Code F20.0 Paranoid schizophrenia Active 07/11/2017 07/11/2017 F10.20 Alcohol Use Disorder, Severe Active 02/19/2020 F17.200 Tobacco Use Disorder, Moderate Active 0 Medications Rx Norm Medication Route Route Concept Start Date Stop Date Dosage Ryder quency Duration Formula Strength Dosage Form Dosage Form Code Dosage Description Medication Id Account Npid Author First Name Author Last Name Taxonomy Code Taxonomy Desc Phone Number [id number] gabapentin by mouth [id number] 11/21/2019 three times a day 400 mg capsule 43856 [phone] Daniela Martinez [id number] Psychiatric/Mental Health [phone] 941019 prazosin by mouth B88026 11/21/2019 at bedtime 2 mg capsul e 10058 574509 [id number] aDniela Martinez [id number] Psychiatric/Mental Health [phone] 806479 propranolol by mouth N34300 11/21/2019 03/16/2020 twice a day 30 40 mg tablet 01429 275052 [id number] Daniela Martinez [id number] P sychiatric/Mental Health [phone] 200321 nicotine (polacrilex) in mouth 01/16/2020 03/16/2020 crow ry four hours 30 2 mg gum as needed 75965 218103 [phone] Daniela Martinez [id number] Psychiatric/Mental Health [phone] 612779 paliperidone by mouth L51433 01/16/2020 04/15/2020 once a day 30 6 mg tablet extended release 24hr 34850 394977 [id number] Daniela Martinez [id number] Psychiatric/Mental Health [id number] Social History Social History Element Description Concept Effective Date Smoking Status Unknown if ever smoked [id number] Immunizations No Data in Section Vital Signs No Data in Section Procedures Date Concept Id Description Targeted Site Concept Targeted Site Concept Type 02/19/2020 37289 Extended Individual Psychotherapy - 45 min CPT Patient has no history of implantable de vices Encounters Encounter Start Date End Date Encounter Type Description Diagnosis Di agnosis Desc Location Author First Name Author Last Name Npid Taxonomy Cod e Taxonomy Desc Phone Number Location Addr1 Location Addr2 Location [facility] Location Sta [place] Location Zip [id number] 02/19/2020 02/19/2020 42519 Extended Individual Psych otherapy - 45 min F20.[address] [facility] Coni Quinones [id number] [id number] Water Softener Servicer [id number] [address] [place] [address] [address] [facility] [phone] Plan of Treatment No Data in Section Lab Results No Data in Section Instructions No Data in Section Insurance Providers Insurance Id Policy Effective Date Policy Thru Date Company N christen [id number] 2018 Dual Complete Me dicare Community Plan [id number] 2018 MEDICAID
[2020-05-12 17:38] LABS: HEMATOCRIT 38.2 % (42.0-52.0); HEMOGLOBIN 12.6 g/dl (13.5-17.5); MEAN CORPUSCULAR HEMOGLOBIN 28.6 pg (27.0-33.0); MEAN CORPUSCULAR VOLUME 86.6 fl (80.0-96.0); PLATELET COUNT, AUTOMATED 248 10^3/uL (150-450); RED BLOOD COUNT 4.41 10^6/uL (4.30-6.10); WHITE BLOOD COUNT 6.5 10^3/uL (4.0-10.0)
[2020-05-12 18:01] LABS: AMPHETAMINES LEVEL URINE NEGATIVE (NEGATIVE); BARBITURATES URINE NEGATIVE (NEGATIVE); BENZODIAZEPINES URINE NEGATIVE (NEGATIVE); CANNABINOIDS URINE NEGATIVE (NEGATIVE); COCAINE METABOLITE URINE POSITIVE (NEGATIVE); METHADONE URINE NEGATIVE (NEGATIVE); OPIATES URINE NEGATIVE (NEGATIVE); PHENCYCLIDINE URINE NEGATIVE (NEGATIVE)
[2020-05-12 18:19] LABS: ACETAMINOPHEN LEVEL < 2.0 UG/ML (10.0-30.0); ALBUMIN 3.8 GM/DL (3.2-5.2); ALT/SGPT 16 U/L (12-78); BILIRUBIN,DIRECT 0.1 MG/DL (0.0-0.2); BILIRUBIN,TOTAL 0.3 MG/DL (0.2-1.0); BLOOD UREA NITROGEN 3 MG/DL (7-18); CALCIUM LEVEL 8.9 MG/DL (8.5-10.1); CARBON DIOXIDE LEVEL 28 MEQ/L (21-32); CHLORIDE LEVEL 107 MEQ/L (98-107); CREATININE FOR GFR 0.94 MG/DL (0.70-1.30); ETHYL ALCOHOL (ETHANOL) 0.197 % (0.000-0.010); GLOMERULAR FILTRATION RATE > 60.0 (>60); GLUCOSE, FASTING 97 MG/DL (70-100); POTASSIUM SERUM 3.8 MEQ/L (3.5-5.1); SALICYLATE LEVEL 5.7 MG/DL (5.0-30.0); SODIUM LEVEL 140 MEQ/L (136-145); THYROID STIMULATING HORMONE 0.182 uIU/ML (0.358-3.740); TOTAL PROTEIN 7.1 GM/DL (6.4-8.2)
[2020-05-12] MEDS ORDERED: NICOTINE 21MG/24HR 1 EA TRANSDERMAL TD ONE (18:30)
--- OUTSIDE RECORDS SUMMARY | 2020-05-12 18:33 | CCD ---
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 Role Phone Armond Royal Unavailable Milo, C Oren Unavailable Unavailable Chelsea, C Oren Unavailable Unavailable Chelsea, C Oren Unavailable Unavailable Chelsea, C Oren Unavailable Unavailable Chelsea, C Oren Unavailable Unavailable Chelsea, C Oren Unavailable Unavailable Chelsea, C Oren Unavailable Unavailable Dwayne Karen Unavailable Nupur Martinez [employer]-DIRECTOR OF ROTC Unavailable Unavailable Nupur Martinez PM[employer]-DIRECTOR OF ROTC Unavailable Unavailable Nupur Martinez PM[employer]-DIRECTOR OF ROTC Unavailable Unavailable Nupur Martinez PMH-DIRECTOR OF ROTC Unavailable Unavailable Nupur Martinez PMH-DIRECTOR OF ROTC Unavailable Unavailable Nupur Martinez PM[employer]-DIRECTOR OF ROTC Unavailable Unavailable Joni Gonzalez Unavailable Clare Coe [...] is protected by Article 27-F of the [facility] Public Health law. If you continue you may have access to information: Regarding HIV / AIDS; Provided by facilities licensed or operated by the [facility] Office of Mental Health; or Provided by the [facility] Office for People With Developmental Disabilities. If such information is present, then the following [facility] mandated warning applies: This information has [...] law may result in a fine or custodial sentence or both. A general authorization for the release of medical or other information is NOT sufficient authorization for further disc losure. Encounters Encounter Providers Location Date Indications Data Source(s ) Extended Individual Psychotherapy - 45 min Attender: Therese Gonzalez [facility] 05/02/2020 10:00:00 AM EST - 05/02/2020 10:00:00 AM EST [facility] Attender: Joni Gonzalez 05/02/2020 12:00:00 AM EST [facility] ([facility]) Outpatient Attender: Daniela Martinez [facility] 04/10/2020 02:30:00 AM EST - 04/10/2020 02:30:00 AM EST [facility] ([facility]) Attender: Daniela MASSEYAMAYA 04/10/2020 12: 00:00 AM EST [facility] ([facility]) Extended Individual Psychotherapy - 45 min Attender: Therese Gonzalez [facility] 03/28/2020 08:00:00 AM EST - 03/28/2020 08:00:00 AM EST [facility] ([facility]) Attender: Joni [facility] 03/28/2020 12:00:00 AM EST [facility] ([facility]) Extended Individual Psychotherapy - 45 min Attender: Therese Gonzalez [facility] 03/25/2020 01:45:00 AM EST - 03/25/2020 01:45:00 AM EST [facility] ([facility]) Attender: Joni [facility] 03/25/2020 12:00:00 AM EST [facility] ([facility]) Brief Individual Psychotherapy - 30 min Attender: Joni valentin [facility] 03/04/2020 03:15:00 AM EST - 03/04/2020 03:15:00 AM EST [facility] ([facility]) [facility] 03/04/[facility] 12:00:00 AM EST [facility] ([facility]) Extended Individual Psychotherapy - 45 min Attender: [facility]se [facility] 02/19/2020 01:45:00 AM EDT - 02/19/2020 01:45:00 AM EDT [facility] ([facility]) Attender: Joni [facility] 02/19/2020 12:00:00 AM EDT [facility] ([facility]) Extended Individual Psychotherapy - 45 min Attender: Therese Gonzalez [facility] 02/05/2020 01:45:00 AM EDT - 02/05/2020 01:45:00 AM EDT [facility] ([facility]) Attender: Joni Gonzalez 02/05/2020 12:00:00 AM EDT [facility] ([facility]) Outpatient Attender: Daniela Martinez [facility] [employer] [facility] 02/04/2020 04:00:00 AM EDT - 02/04/2020 04:00:00 AM EDT [facility] ([facility]) Attender: Daniela Martinez [facility]-[employer] 02/04/2020 12: 00:00 AM EDT [facility] ([facility]) Extended Individual Psychotherapy - 45 min Att[facility]: Therese [facility] 01/18/2020 11:15:00 AM EDT - 01/18/2020 11:15:00 AM EDT [facility] ([facility]) Att[facility]: Joni [facility] 01/18/2020 12:00:00 AM EDT [facility] ([facility]) Injectable Psychotropic Medication Administration (Inj ection Only) Attender: Oneida Tariq [facility] 10/25/2019 02:00:00 AM EDT - 10/25/2019 02:00:00 AM EDT [facility] ([facility]) Attender: Oneida Tairq 10/25/2019 12:00:00 AM EDT [facility] ([facility]) Injectable Psychotropic Medication Administration (Inj ection Only) Attender: Karen Rice [facility] 10/23/2019 11:30:00 AM EDT - 10/23/2019 11:30:00 AM EDT [facility] ([facility]) TEMPMHCTelemed 30" Psychotherapy Attender: Joni Gonzalez [facility] 10/23/2019 04:00:00 AM EDT - 10/23/2019 04:00:00 AM EDT [facility] ([facility]) Attender: Joni Gonzalez 10/23/2019 12:00:00 AM EDT [facility] ([facility]) Attender: Karen Rice 10/23/2019 12:00:00 AM EDT [facility] ([facility]) [facility]patient [facility] 10/05/2019 12:02:09 AM EDT [facility] Outpatient Attender[facility]IKET [facility] 10/04/2019 10:37:00 AM EDT [facility]: [facility] 10/02/2019 07:48:22 PM EDT [facility] Injectable Medication Administration w/ Monitoring & E ducation Attender: Karen Rice [facility] 10/02/2019 11:00:00 AM EDT - 10/02/2019 11:00:00 AM EDT [facility] ([facility]) Attender: Karen Rice 10/02/2019 12:00:00 AM EDT [facility] ([facility]) Injectable Medication Administration w/ Monitoring & E ducation Attender: Karen Rice [facility] 09/28/2019 01:30:00 AM EDT - 09/28/2019 01:30:00 AM EDT [facility] ([facility]) Attender: Karen Rice 09/28/2019 12:00:00 AM EDT [facility] ([facility]) Outpatient Att[facility]: [facility] 09/22/2019 12:14:57 AM EDT [facility] [id number]"Psychotherapy Attender: Joni Gonzalez [facility] 09/20/2019 10:15:00 AM EDT - 09/20/2019 10:15:00 AM EDT [facility] ([facility]) Attender: Joni Gonzalez 09/20/2019 12:00:00 AM EDT [facility] ([facility]) [id number]"Psychotherapy [facility]: [facility] 09/19/2019 02:00:00 AM EDT - 09/19/2019 02:00:00 AM EDT [facility] ([facility]) Attender: Joni Gonzalez 09/19/2019 12:00:00 AM EDT [facility] ([facility]) Outpatient Attender: Daniela BARBOSA Antonio Kraft [facility] 09/14/2019 03:00:00 AM EDT - 09/14/2019 03:00:00 AM EDT [facility] ([facility]) Attender: Daniela BARBOSA 09/14/2019 12: 00:00 AM EDT [facility] ([facility]) TEMPMHCTelemed 30" Psychotherapy [facility]: [facility] 09/03/2019 01:45:00 AM EDT - 09/03/2019 01:45:00 AM EDT [facility] ([facility]) [facility]: [facility]i [facility] 09/03/2019 12:00:00 AM EDT [facility] ([facility]) [id number]"Psychotherapy Attender: Joni Gonzalez [facility] 08/20/2019 01:00:00 AM EDT - 08/20/2019 01:00:00 AM EDT [facility] ([facility]) [facility]: [facility]i [facility] 08/20/2019 12:00:00 AM EDT [facility] ([facility]) Outpatient Attender: Daniela BARBOSA Antonio Kraft [facility] 08/02/2019 10:30:00 AM EDT - 08/02/2019 10:30:00 AM EDT [facility] ([facility]) TEMPMHCTelemed 30" Psychotherapy [facility] 02:00:00 AM EDT - 08/02/2019 02:00:00 AM EDT [facility] ([facility]) Attender: Clare Coe 08/02/2019 12:00:00 AM EDT [facility] ([facility]) Attender: Daniela BARBOSA 08/02/2019 12: 00:00 AM EDT [facility] ([facility]) Outpatient Attender: ANIKET [facility] 07/20/2019 08:01:46 PM EDT [facility] TEMPMHCTelemed 30" Psychotherapy Attender: Clare Coe [facility] 07/19/2019 10:00:00 AM EDT - 07/19/2019 10:00:00 AM EDT [facility] ([facility]) Attender: Clare Saravanan 07/19/2019 12:00:00 AM EDT [facility] ([facility]) Extended Individual Psychotherapy - 45 min Attender: Vandana rodas Saravanan [facility] 07/12/2019 11:00:00 AM EDT - 07/12/2019 11:00:00 AM EDT [facility] ([facility]) Attender: Clare Xiaoh 07/12/2019 12:00:00 AM EDT [facility] ([facility]) Injectable Psychotropic Medication Administration (Inj ection Only) Attender: Karen Rice [facility] 07/06/2019 01:00:00 AM EDT - 07/06/2019 01:00:00 AM EDT [facility] ([facility]) Attender: Karen Rice 07/06/2019 12:00:00 AM EDT [facility] ([facility]) Injectable Psychotropic Medication Administration (Inj ection Only) Attender: Oneida Tariq [facility] 07/03/2019 11:30:00 AM EDT - 07/03/2019 11:30:00 AM EDT [facility] ([facility]) Attender: Oneida Tariq 07/03/2019 12:00:00 AM EDT [facility] ([facility]) Brief Individual Psychotherapy - 30 min Attender: Clare ervin [facility] 06/28/2019 02:45:00 AM EST - 06/28/2019 02:45:00 AM EST [facility] ([facility]) Attender: Clare Coe 06/28/2019 12:00:00 AM EST [facility] ([facility]) Outpatient Attender: Oren Pedraza [facility] 0 06/19/2019 02:45:00 AM EST - 06/19/2019 02:45:00 AM EST [facility] ([facility] Attender: Oren Pedraza 06/19/2019 12:00:00 AM EST [facility] ([facility]) [facility]patient [facility]: [facility] 06/08/2019 05:21:01 PM [facility] Outpatient Attender: ANIK[facility] 06/08/2019 09:22:11 AM [facility] Outpatient Attender: ANIKET [facility] 06/08/2019 09:18:57 AM [facility] Extended Individual Psychotherapy - 45 min Attender: [facility] 06/08/2019 03:00:00 AM EST - 06/08/2019 03:00:00 AM EST [facility] ([facility] 12:00:00 AM EST [facility] ([facility]) Extended Individual Psychotherapy - 45 min Attender: [facility] 05/31/2019 10:45:00 AM EST - 05/31/2019 10:45:00 AM EST [facility] ([facility]) Attender: [facility] 05/31/2019 12:00:00 AM EST [facility] ([facility]) Outpatient Attender: ANIKET [facility] 05/04/2019 11:09:01 AM [facility] Injectable Psychotropic Medication Administration (Inj ection Only) Attender: Karen Rice [facility] 04/09/2019 01:00:00 AM EST - 04/09/2019 01:00:00 AM EST [facility] ([facility] Attender: Karen Rice 04/09/2019 12:00:00 AM EST [facility] ([facility]) Injectable Medication Administration w/ Monitoring & E ducation Attender: Karen Rice [facility] 04/04/2019 01:00:00 AM EST - 04/04/2019 01:00:00 AM EST [facility] ([facility]) Attender: Karen Rice 04/04/2019 12:00:00 AM EST [facility] ([facility]) Injectable Medication Administration w/ Monitoring & E ducation Attender: Karen Dwayne [facility] 04/03/2019 01:15:00 AM EST - 04/03/2019 01:15:00 AM EST [facility] ([facility]) Attender: Karen Rice 04/03/2019 12:00:00 AM EST [facility] ([facility]) Brief Individual Psychotherapy - 30 min Attender: Armondsarita Dahl Yoanna [facility] 04/02/2019 11:30:00 AM EST - 04/02/2019 11:30:00 AM EST [facility] ([facility]) Attender: Armond Lenz 04/02/2019 12:00:0 0 AM EST [facility] ([facility]) Functional Status Medications Medication Brand Name Start Date Product Form Dose Route Admi nistrative Instructions Pharmacy Instructions Status Indications Reaction Description Data Source(s) 24 HR paliperidone 6 MG Extended Release Oral Tablet paliper idone 01/16/2020 12:00:00 AM EDT 6 mg by mouth completed [id number] pa liperidone by mouth [id number] 01/16/2020 04/15/2020 once a day 30 6 mg tablet extended release 24hr 27685 [id number] Daniela Martinez [id number] [facility] ([facility]) 24 HR paliperidone 6 MG Extended Release Oral Tablet paliper idone 01/16/2020 12:00:00 AM EDT 6 mg by mouth completed 709911 pa liperidone by mouth [id number] 01/16/2020 04/15/2020 once a day 30 6 mg tablet extended release 24hr 37498 [id number] Daniela Martinez [id number] [facility] ([facility]) Nicotine 2 MG Chewing Gum nicotine (polacrilex) 01/16/2020 12:00:00 AM EDT 2 mg completed [id number] nicotine (polacrilex) in [facility] 01/16/2020 03/16/2020 every four hours 30 2 mg gum as needed 76069 540645 [id number] Daniela Martinez [id number] [facility] ([facility]) 24 HR paliperidone 6 MG Extended Release Oral Tablet paliper idone 01/16/2020 12:00:00 AM EDT 6 mg by mouth completed 384175 pa liperidone by mouth [id number] 01/16/2020 04/15/2020 once a day 30 6 mg tablet extended release 24hr 52868 232337 [id number] Daniela Martinez [id number] [facility] quetiapine 100 MG Oral Tablet [Seroquel] Seroquel 01/16/2020 12 :00:00 AM EDT 100 mg by mouth completed [id number] Seroquel by mouth [id number] every night 100 mg tablet 68209 993835 [id number] Daniela dangleo [id number] [facility] ([facility]) Nicotine 2 MG Chewing Gum nicotine (polacrilex) 01/16/2020 12:00:00 AM EDT 2 mg completed 576199 nicotine (polacrilex) in [facility] 01/16/2020 03/16/2020 every four hours 30 2 mg gum as needed 31008 397204 [id number] Daniela Martinez [id number] [facility]) Propranolol Hydrochloride 40 MG Oral Tablet propranolol 11/21/2019 12:00:00 AM EDT 40 mg by mouth completed 307049 propranolol by [facility] [id number] 11/21/2019 03/16/2020 twice a day 30 40 mg tablet 86770 [id number] Daniela Martinez [id number] [facility]) gabapentin 400 MG Oral Capsule gabapentin 11/21/2019 12:00:00 AM EDT 400 mg by mouth completed [id number] gabapentin by mouth [id number] 11/20 three times a day 400 mg capsule 84623 201319 [id number] Daniela Ribeiro [id number] [facility] ([facility]) Propranolol Hydrochloride 40 MG Oral Tablet propranolol 11/21/2019 12:00:00 AM EDT 40 mg by mouth completed [id number] propranolol by [facility] [id number] 11/21/2019 03/16/2020 twice a day 30 40 mg tablet 27818 [id number] Daniela Martinez [id number] [facility]) Prazosin 2 MG Oral Capsule prazosin 11/21/2019 12:00:00 AM EDT 2 mg by mouth completed [id number] prazosin by mouth [id number] 11/21/2019 at bedtime 2 mg capsule 67510 067614 [id number] Daniela Martinez [id number] [facility]) Alprazolam 2 MG Oral Tablet alprazolam 06/27/2019 12:00:00 AM EST 2 mg by mouth completed 353447 alprazolam by mouth Q33860 201907/26/2019 30 2 mg tablet 19010 412195 [id number] Oren Pedraza [id number] [facility] ([facility]) Prazosin 2 MG Oral Capsule prazosin 06/19/2019 12:00:00 AM EST 2 mg by mouth completed [id number] prazosin by mouth [id number] 06/19/2019 at bedtime 30 2 mg capsule 27381 661040 [id number] Oren Pedraza 3 [id number] [facility]) gabapentin 400 MG Oral Capsule gabapentin 06/19/2019 12:00:00 AM EST 400 mg completed [id number] gabapentin 06/19/201908/17 three times a day 30 400 mg capsule 08793 177288 [id number] Oren Pedraza 36 [id number] [facility] ([facility]) Prazosin 2 MG Oral Capsule prazosin 06/19/2019 12:00:00 AM EST 2 mg by mouth completed 168423 prazosin by mouth [id number] 06/19/2019 at bedtime 30 2 mg capsule 52051 826217 [id number] Oren Pedraza 3 [id number] [facility] ([facility]) 2.625 ML paliperidone palmitate 312 MG/ML Prefilled Sy ringe [Invega] Invega Trinza 06/19/2019 12:00:00 AM EST 819 mg/2.625 completed [id number] Invega Trinza intramuscularly 06/19/2019 06/21/2019 every three months 1 819 mg/2.625 mL syringe 01753 887763 [id number] Oren Pedraza [id number] [facility] ([facility]) gabapentin 400 MG Oral Capsule gabapentin 06/19/2019 12:00:00 AM EST 400 mg completed [id number] gabapentin 06/19/201908/17 three times a day 30 400 mg capsule 96353 953167 [id number] Oren Pedraza 36 [id number] [facility] ([facility]) gabapentin 400 MG Oral Capsule gabapentin 06/19/2019 12:00:00 AM EST 400 mg completed [id number] gabapentin 06/19/201908/17 three times a day 30 400 mg capsule 44695 [id number] Oren Pedraza [id number] [facility] ([facility]) Propranolol Hydrochloride 40 MG Oral Tablet propranolol 05/23/2019 12:00:00 AM EST 40 mg by mouth completed [id number] propranolol by [facility] [id number] 05/23/2019 08/18/2019 twice a day 30 40 mg tablet as directed 56777 727812 [id number] Oren Pedraza [id number] [facility]) Propranolol Hydrochloride 40 MG Oral Tablet propranolol 05/23/2019 12:00:00 AM EST 40 mg by mouth completed [id number] propranolol by [facility] [id number] 05/23/2019 08/18/2019 twice a day 30 40 mg tablet as directed 40852 600656 [id number] Oren Pedraza [id number] [facility] ([facility]) Propranolol Hydrochloride 40 MG Oral Tablet propranolol 05/23/2019 12:00:00 AM EST 40 mg by mouth completed [id number] propranolol by [facility] [id number] 05/23/2019 08/18/2019 twice a day 30 40 mg tablet as directed 86393 431526 [id number] Oren Pedraza [id number] [facility]) Prazosin 2 MG Oral Capsule prazosin 02/19/2019 12:00:00 AM EDT 2 mg by mouth completed [id number] prazosin by mouth [id number] 02/19/2019 at bedtime 30 2 mg capsule 65939 114584 [id number] Oren Pedraza 3 [id number] [facility]) Mirtazapine 45 MG Oral Tablet mirtazapine 02/19/2019 12:00:00 AM EDT 45 mg completed [id number] mirtazapine 02/19/2019 06/19/2019 at bedtime 30 45 mg tablet 04503 713969 [id number] Oren Pedraza [id number] [facility] ([facility]) quetiapine 300 MG Oral Tablet quetiapine 02/19/2019 12:00:00 AM EDT 300 mg completed [id number] quetiapine 02/19/2019 06/19/2019 at bedtime 30 300 mg tablet 65750 909131 [id number] Oren Pedraza [id number] [facility]) Mirtazapine 45 MG Oral Tablet mirtazapine 02/19/2019 12:00:00 AM EDT 45 mg completed [id number] mirtazapine 02/19/2019 06/19/2019 at bedtime 30 45 mg tablet 58411 578130 [id number] Oren Pedraza [id number] [facility]) quetiapine 300 MG Oral Tablet quetiapine 02/19/2019 12:00:00 AM EDT 300 mg completed [id number] quetiapine 02/19/2019 06/19/2019 at bedtime 30 300 mg tablet 98240 188352 [id number] Oren Pedraza [id number] [facility]) Mirtazapine 45 MG Oral Tablet mirtazapine 02/19/2019 12:00:00 AM EDT 45 mg completed [id number] mirtazapine 02/19/2019 06/19/2019 at bedtime 30 45 mg tablet 05049 933152 [id number] Oren Pedraza [id number] [facility]) Mirtazapine 45 MG Oral Tablet mirtazapine 02/19/2019 12:00:00 AM EDT 45 mg completed [id number] mirtazapine 02/19/2019 06/19/2019 at bedtime 30 45 mg tablet 47015 268938 [id number] Oren Pedraza [id number] [facility] ([facility]) quetiapine 300 MG Oral Tablet quetiapine 02/19/2019 12:00:00 AM EDT 300 mg completed [id number] quetiapine 02/19/2019 06/19/2019 at bedtime 30 300 mg tablet 96932 238235 [id number] Oren Pedraza [id number] [facility] ([facility]) quetiapine 300 MG Oral Tablet quetiapine 02/19/2019 12:00:00 AM EDT 300 mg completed [id number] quetiapine 02/19/2019 06/19/2019 at bedtime 30 300 mg tablet 52507 435221 [id number] Oren Pedraza [id number] [facility]) Prazosin 2 MG Oral Capsule prazosin 02/19/2019 12:00:00 AM EDT 2 mg by mouth completed [id number] prazosin by mouth [id number] 02/19/2019 at bedtime 30 2 mg capsule 41707 [id number] [id number] Oren Pedraza 3 [id number] [facility]) Insurance Providers Payer name Policy type / Coverage type Policy ID Covered republican ID Covered republican's relationship to toney Policy Toney Plan Information [facility] [id number] SP [id number] EMEDNY [id number] SP [id number] MEDICARE COMPLETE [id number] SP [id number] [facility] [id number] SP [id number] [facility] [id number] SP [id number] [facility] Secure Horizons P UNAVAILABLE S UNAVAILABLE Medicare O UNAVAILABLE S [facility]A [facility] Medicaid S UNAVAILABLE S [facility]A [facility] [id number] SP [id number] Managed Care - MVP P UNAVAILABLE S UNAVAILABLE [facility] I [id number] Self [id number] [facility] I [id number] Self [id number] ANSI-Not a Secondary Insurance [id number] ANSI-Not a Secondary Insurance [id number] MVP MCDHMO [id number] SP [id number] [facility] [id number] SP [id number] ANSI-Not a Secondary Insurance [id number] ANSI-Not a Secondary Insurance [id number] ANSI-Not a Secondary Insurance [id number] BEACON MVP ANUPAM [id number] SP [id number] ANSI-Not a Secondary Insurance [id number] ANSI-Not a Secondary Insurance [id number] TOTAL CARE MEDICAID/GARAY [id number] Diana [id number] TOTAL CARE MEDICAID/GARAY [id number] Diana [id number] COMMERCIAL GENERIC [id number] Diana E [id number] S [id number] 400 VALUE OPTIONS FOR MVP [id number] S [id number] MVP MCDHMO [id number] SP [id number] VALUE OPTIONS FOR MVP [id number] S [id number] [facility] PH[facility]ICIAN [id number] S [id number] MEDICAID [id number] UNHC COMMUNITY PLAN MCDHMO [id number] SP [id number] [facility] U [id number] Self [id number] EXCELLUS H [id number] Self [id number] [facility] O [id number] S [id number] TOTAL CARE MEDICAID [id number] Diana [id number] TOTAL CARE MEDICAID [id number] Diana [id number] COMMERCIAL GENERIC UNAVAILABLE Diana UNAVAILABLE BCBS HMO [place] O [id number] Problems, Conditions, and Diagnoses Code Display Name Description Problem Type Effective Dates Data Source(s) F17.200 Nicotine dependence, unspecified, uncomp licated Tobacco Use Disorder, Moderate Condition 05/02/2020 12:00:00 AM EST [facility] ([facility]) F10.20 Alcohol dependence, uncomplicated Alcohol Use Disorder , Severe Condition 05/02/2020 12:00:00 AM EST [facility] ([facility]) F20.0 Paranoid schizophrenia Paranoid schizophrenia Conditio n 05/02/2020 12:00:00 AM EST [facility] ([facility]) Surgeries/Procedures Procedure Description Date Indications Data Source(s) Extended Individual Psychotherapy - 45 min 05/02/2020 12:00:00 AM EST - 05/02/2020 12:00:00 AM EST [facility] ([facility]) Extended Individual Psychotherapy - 45 min 12:00:00 AM EST [facility] ([facility]) MHC Telemed E/M Lvl 3--Est pt 04/10/2020 12:00:00 AM EST - 04/10/2020 12:00:00 AM EST [facility] ([facility]) Telemed A/O 30" 04/10/2020 12:00:00 AM EST [facility] ([facility]) MHC Telemed E/M Lvl 3--Est pt 04/10/2020 12:00:[address] [facility]) Extended Individual Psychotherapy - 45 min 03/28/2020 12:00:00 AM EST - 03/28/2020 12:00:00 AM EST [facility] ([facility]) Extended Individual Psychotherapy - 45 min 0 12:00:00 AM EST [facility] ([facility]) Extended Individual Psychotherapy - 45 min 03/25/2020 12:00:00 AM EST - 03/25/2020 12:00:00 AM EST [facility] ([facility]) Extended Individual Psychotherapy - 45 min 0 12:00:00 AM EST [facility] ([facility]) Brief Individual Psychotherapy - 30 min 03/04/2020 12:00:00 AM EST - 03/04/2020 12:00:00 AM EST [facility] ([facility]) Brief Individual Psychotherapy - 30 min 03/04/2020 12: 00:00 AM EST [facility] ([facility]) Extended Individual Psychotherapy - 45 min 02/19/2020 12:00:00 AM EDT - 02/19/2020 12:00:00 AM EDT [facility] ([facility]) Extended Individual Psychotherapy - 45 min 0 12:00:00 AM EDT [facility] ([facility]) Extended Individual Psychotherapy - 45 min 02/05/2020 12:00:00 AM EDT - 02/05/2020 12:00:00 AM EDT [facility] ([facility]) Extended Individual Psychotherapy - 45 min 0 12:00:00 AM EDT [facility] ([facility]) MHC Telemed E/M Lvl 3--Est pt 02/04/2020 12:00:00 AM EDT - 02/04/2020 12:00:00 AM EDT [facility] ([facility]) Telemed A/O 30" 02/04/2020 12:00:00 AM EDT [facility] ([facility]) MHC Telemed E/M Lvl 3--Est pt 02/04/2020 12:00:00 AM E DT [facility] ([facility]) Extended Individual Psychotherapy - 45 min 01/18/2020 12:00:00 AM EDT - 01/18/2020 12:00:00 AM EDT [facility] ([facility]) Extended Individual Psychotherapy - 45 min 0 12:00:00 AM EDT [facility] ([facility]) THERAPEUTIC PROPHYLACTIC/DX INJECTION SUBQ/IM 10/25/2019 12:00:00 AM EDT - 10/25/2019 12:00:00 AM EDT [facility] ([facility]) THERAPEUTIC PROPHYLACTIC/DX INJECTION SUBQ/IM 10/25/19 20 12:00:00 AM EDT [facility] ([facility]) TEMPMHCTelemed 30" Psychotherapy 020 12:00:00 AM EDT - 10/23/2019 12:00:00 AM EDT [facility] ([facility]) TEMPMHCTelemed 30" Psychotherapy 10/23/2019 12:00:00 A M EDT [facility] ([facility]) THERAPEUTIC PROPHYLACTIC/DX INJECTION SUBQ/IM 10/23/2019 12:00:00 AM EDT - 10/23/2019 12:00:00 AM EDT [facility] ([facility]) THERAPEUTIC PROPHYLACTIC/DX INJECTION SUBQ/IM 10/23/19 20 12:00:00 AM EDT [facility] ([facility]) Comprehensive medication services, per 15 minutes 10/02/2019 12:00:00 AM EDT - 10/02/2019 12:00:00 AM EDT [facility] ([facility]) Comprehensive medication services, per 15 minutes 10/02/2019 12:00:00 AM EDT [facility] ([facility]) Comprehensive medication services, per 15 minutes 09/28/2019 12:00:00 AM EDT - 09/28/2019 12:00:00 AM EDT [facility] ([facility]) Comprehensive medication services, per 15 minutes 09/28/2019 12:00:00 AM EDT [facility] ([facility]) [id number]"Psychotherapy 0 12:00:00 AM EDT - 09/20/2019 12:00:00 AM EDT [facility] ([facility]) [id number]"Psychotherapy 09/20/2019 12:00:00 AM EDT [facility] ([facility]) [id number]"Psychotherapy 0 12:00:00 AM EDT - 09/19/2019 12:00:00 AM EDT [facility] ([facility]) [id number]"Psychotherapy 09/19/2019 12:00:00 AM EDT [facility] ([facility]) MHC Telemed E/M Lvl 3--Est pt 09/14/2019 12:00:00 AM EDT - 09/14/2019 12:00:00 AM EDT [facility] ([facility]) Telemed A/O 30" 09/14/2019 12:00:00 AM EDT [facility] ([facility]) MHC Telemed E/M Lvl 3--Est pt 09/14/2019 12:00:00 AM E DT [facility] ([facility]) TEMPMHCTelemed 30" Psychotherapy 020 12:00:00 AM EDT - 09/03/2019 12:00:00 AM EDT [facility] ([facility]) TEMPMHCTelemed 30" Psychotherapy 09/03/2019 12:00:00 A M EDT [facility] ([facility]) [id number]"Psychotherapy 0 12:00:00 AM EDT - 08/20/2019 12:00:00 AM EDT [facility] ([facility]) [id number]"Psychotherapy 08/20/2019 12:00:00 AM EDT [facility] ([facility]) TEMPMHCTelemed 30" Psychotherapy 020 12:00:00 AM EDT - 08/02/2019 12:00:00 AM EDT [facility] ([facility]) TEMPMHCTelemed 30" Psychotherapy 08/02/2019 12:00:00 A M EDT [facility] ([facility]) MHC Telemed E/M Lvl 3--Est pt 08/02/2019 12:00:00 AM EDT - 08/02/2019 12:00:00 AM EDT [facility] ([facility]) Telemed A/O 30" 08/02/2019 12:00:00 AM EDT [facility] ([facility]) MHC Telemed E/M Lvl 3--Est pt 08/02/2019 12:00:00 AM E DT [facility] ([facility]) TEMPMHCTelemed 30" Psychotherapy 020 12:00:00 AM EDT - 07/19/2019 12:00:00 AM EDT [facility] ([facility]) TEMPMHCTelemed 30" Psychotherapy 07/19/2019 12:00:00 A M EDT [facility] ([facility]) Extended Individual Psychotherapy - 45 min 07/12/2019 12:00:00 AM EDT - 07/12/2019 12:00:00 AM EDT [facility] ([facility]) Extended Individual Psychotherapy - 45 min 0 12:00:00 AM EDT [facility] ([facility]) THERAPEUTIC PROPHYLACTIC/DX INJECTION SUBQ/IM 07/06/2019 12:00:00 AM EDT - 07/06/2019 12:00:00 AM EDT [facility] ([facility]) THERAPEUTIC PROPHYLACTIC/DX INJECTION SUBQ/IM 07/06/19 20 12:00:00 AM EDT [facility] ([facility]) THERAPEUTIC PROPHYLACTIC/DX INJECTION SUBQ/IM 07/03/2019 12:00:00 AM EDT - 07/03/2019 12:00:00 AM EDT [facility] ([facility]) THERAPEUTIC PROPHYLACTIC/DX INJECTION SUBQ/IM 07/03/19 20 12:00:00 AM EDT [facility] ([facility]) Brief Individual Psychotherapy - 30 min 06/28/2019 12:00:00 AM EST - 06/28/2019 12:00:00 AM EST [facility] ([facility]) Brief Individual Psychotherapy - 30 min 06/28/2019 12: 00:00 AM EST [facility] ([facility]) OFFICE OUTPATIENT VISIT 10 MINUTES 06/19 12:00:00 AM EST - 06/19/2019 12:00:00 AM EST [facility] ([facility]) OFFICE OUTPATIENT VISIT 10 MINUTES 06/19/2019 12:00:00 AM EST [facility] ([facility]) Extended Individual Psychotherapy - 45 min 06/08/2019 12:00:00 AM EST - 06/08/2019 12:00:00 AM EST [facility] ([facility]) Extended Individual Psychotherapy - 45 min 0 12:00:00 AM EST [facility] ([facility]) Extended Individual Psychotherapy - 45 min 05/31/2019 12:00:00 AM EST - 05/31/2019 12:00:00 AM EST [facility] ([facility]) Extended Individual Psychotherapy - 45 min 0 12:00:00 AM EST [facility] ([facility]) THERAPEUTIC PROPHYLACTIC/DX INJECTION SUBQ/IM 04/09/2019 12:00:00 AM EST - 04/09/2019 12:00:00 AM EST [facility] ([facility]) THERAPEUTIC PROPHYLACTIC/DX INJECTION SUBQ/IM 04/09/20 19 12:00:00 AM EST [facility] ([facility]) Comprehensive medication services, per 15 minutes 04/04/2019 12:00:00 AM EST - 04/04/2019 12:00:00 AM EST [facility] ([facility]) Comprehensive medication services, per 15 minutes 04/04/2019 12:00:00 AM EST [facility] ([facility]) Comprehensive medication services, per 15 minutes 04/03/2019 12:00:00 AM EST - 04/03/2019 12:00:00 AM EST [facility] ([facility]) Comprehensive medication services, per 15 minutes 04/03/2019 12:00:00 AM EST [facility] ([facility]) Brief Individual Psychotherapy - 30 min 04/02/2019 12:00:00 AM EST - 04/02/2019 12:00:00 AM EST [facility] ([facility]) Brief Individual Psychotherapy - 30 min 04/02/2019 12: 00:00 AM EST [facility] ([facility]) Results ID Date Data Source [id number] 06/07/2019 09:07:56 AM EST [facility] Vital SignsBlood Pressure: 141/97 Patient History Medical History:mental healthFamily History:Social/Personal History: Smoking Status: current every day smokerAlcohol Use: CurrentlyCurrent Problems: DENTAL CARIES EXTENDING INTO PULP (ICD-521.03) (TEK95-N65.63)Problem list reviewed during this update.Current Medications: * [...] #32 Surface O, #5 Surface DO[E] [employer] On #14 Surface O, #15 Surface O, #18 Surface O, #2 Surface O, #3 Surface O, #31 Surface O[E] Missing - [place] On #17 Surface O Region XR, #19 Surface O Region XR, #30 Surface O Region XR, #4 Surface O Region XR[E] Chipped On #18 Surface MB, #20 Surface D Chart Notes:dheeraj (Jun 07 2019 9:45AM): [facility](check BP next appointment). CC: none. Reviewed Xrays. Exam: caries detected. OCS: WNL IO/ EO completed, No significant hard findings upon clinical exam Pt was cooperative.OHI givenReferral: N/ANV:filling Possible referral on #16Juan Luiso Lino VANCEie by dheeraj (06/07/2019 9:45 AM): ; shahid (Jun 07 2019 9:40AM): [facility] with NEW patient- updated history. [...] leted Unknown if ever smoked [facility] ([facility]) Smoking 04/10/2020 12:00:00 AM EST Unknown if ever smoked comp leted Unknown if ever smoked [facility] ([facility]) Smoking 03/28/2020 12:00:00 AM EST Unknown if ever smoked comp leted Unknown if ever smoked [facility] ([facility]) Smoking 03/25/2020 12:00:00 AM EST Unknown if ever smoked comp leted Unknown if ever smoked [facility] ([facility]) Smoking 03/04/2020 12:00:00 AM EST Unknown if ever smoked comp leted Unknown if ever smoked [facility] ([facility]) Smoking 02/19/2020 12:00:00 AM EDT Unknown if ever smoked comp leted Unknown if ever smoked [facility] ([facility]) Smoking 02/05/2020 12:00:00 AM EDT Unknown if ever smoked comp leted Unknown if ever smoked [facility] ([facility]) Smoking 02/04/2020 12:00:00 AM EDT Unknown if ever smoked comp leted Unknown if ever smoked [facility] ([facility]) Smoking 01/18/2020 12:00:00 AM EDT Unknown if ever smoked comp leted Unknown if ever smoked [facility] ([facility]) Smoking 10/25/2019 12:00:00 AM EDT Unknown if ever smoked comp leted Unknown if ever smoked [facility] ([facility]) Smoking 10/23/2019 12:00:00 AM EDT Unknown if ever smoked comp leted Unknown if ever smoked [facility] ([facility]) Smoking 10/02/2019 12:00:00 AM EDT Unknown if ever smoked comp leted Unknown if ever smoked [facility] ([facility]) Smoking 09/28/2019 12:00:00 AM EDT Unknown if ever smoked comp leted Unknown if ever smoked [facility] ([facility]) Smoking 09/20/2019 12:00:00 AM EDT Unknown if ever smoked comp leted Unknown if ever smoked [facility] ([facility]) Smoking 09/19/2019 12:00:00 AM EDT Unknown if ever smoked comp leted Unknown if ever smoked [facility] ([facility]) Smoking 09/14/2019 12:00:00 AM EDT Unknown if ever smoked comp leted Unknown if ever smoked [facility] ([facility]) Smoking 09/03/2019 12:00:00 AM EDT Unknown if ever smoked comp leted Unknown if ever smoked [facility] ([facility]) Smoking 08/20/2019 12:00:00 AM EDT Unknown if ever smoked comp leted Unknown if ever smoked [facility] Smoking 08/02/2019 12:00:00 AM EDT Unknown if ever smoked comp leted Unknown if ever smoked [facility] ([facility]) Smoking 07/19/2019 12:00:00 AM EDT Unknown if ever smoked comp leted Unknown if ever smoked [facility] ([facility]) Smoking 07/12/2019 12:00:00 AM EDT Unknown if ever smoked comp leted Unknown if ever smoked [facility] ([facility]) Smoking 07/06/2019 12:00:00 AM EDT Unknown if ever smoked comp leted Unknown if ever smoked [facility] ([facility]) Smoking 07/03/2019 12:00:00 AM EDT Unknown if ever smoked comp leted Unknown if ever smoked [facility] ([facility]) Smoking 06/28/2019 12:00:00 AM EST Unknown if ever smoked comp leted Unknown if ever smoked [facility] ([facility]) Smoking 06/19/2019 12:00:00 AM EST Unknown if ever smoked comp leted Unknown if ever smoked [facility] ([facility]) Smoking 06/08/2019 12:00:00 AM EST Unknown if ever smoked comp leted Unknown if ever smoked [facility] ([facility]) Smoking 05/31/2019 12:00:00 AM EST Unknown if ever smoked comp leted Unknown if ever smoked [facility] ([facility]) Smoking 04/09/2019 12:00:00 AM EST Unknown if ever smoked comp leted Unknown if ever smoked [facility] ([facility]) Smoking 04/04/2019 12:00:00 AM EST Unknown if ever smoked comp leted Unknown if ever smoked [facility] ([facility]) Smoking 04/03/2019 12:00:00 AM EST Unknown if ever smoked comp leted Unknown if ever smoked [facility] ([facility]) Smoking 04/02/2019 12:00:00 AM EST Unknown if ever smoked comp leted Unknown if ever smoked [facility] ([facility]) Vital Signs ID Date Data Source UNK Name Value Range Interpretation Code Description Data Source(s) Diastolic blood pressure 0 mm[Hg] Normal (applies to non-numeric results) 0 mm[Hg] [facility] ([facility]) Systolic blood pressure 0 mm[Hg] Normal (applies t o non-numeric results) 0 mm[Hg] [facility] ([facility]) Body mass index (BMI) [Ratio] 0.00 kg/m2 No rmal (applies to non-numeric results) 0.00 kg/m2 [facility] ([facility]) Body weight Measured 0.00 lbs Normal (applies to n on-numeric results) 0.00 lbs [facility] ([facility]) Body height 0.00 in Normal (applies to non-numeric resu lts) 0.00 in [facility] ([facility]) Diastolic blood pressure 0 mm[Hg] Normal (applies to non-numeric results) 0 mm[Hg] [facility] ([facility]) Systolic blood pressure 0 mm[Hg] Normal (applies t o non-numeric results) 0 mm[Hg] [facility] ([facility]) Body mass index (BMI) [Ratio] 0.00 kg/m2 No rmal (applies to non-numeric results) 0.00 kg/m2 [facility] ([facility]) Body weight Measured 0.00 lbs Normal (applies to n on-numeric results) 0.00 lbs [facility] ([facility]) Body height 0.00 in Normal (applies to non-numeric resu lts) 0.00 in [facility] ([facility]) Diastolic blood pressure 0 mm[Hg] Normal (applies to non-numeric results) 0 mm[Hg] [facility] ([facility]) Systolic blood pressure 0 mm[Hg] Normal (applies t o non-numeric results) 0 mm[Hg] [facility] ([facility]) Body mass index (BMI) [Ratio] 0.00 kg/m2 No rmal (applies to non-numeric results) 0.00 kg/m2 [facility] ([facility]) Body weight Measured 0.00 lbs Normal (applies to n on-numeric results) 0.00 lbs [facility] ([facility]) Body height 0.00 in Normal (applies to non-numeric resu lts) 0.00 in [facility] ([facility]) Diastolic blood pressure 0 mm[Hg] Normal (applies to non-numeric results) 0 mm[Hg] [facility] ([facility]) Systolic blood pressure 0 mm[Hg] Normal (applies t o non-numeric results) 0 mm[Hg] [facility] ([facility]) Body mass index (BMI) [Ratio] 0.00 kg/m2 No rmal (applies to non-numeric results) 0.00 [facility] Body weight Measured 0.00 lbs Normal (applies to n on-numeric results) 0.00 lbs [facility] ([facility]) Body height 0.00 in Normal (applies to non-numeric resu lts) 0.00 in [facility] ([facility]) Diastolic blood pressure 0 mm[Hg] Normal (applies to non-numeric results) 0 mm[Hg] [facility] ([facility]) Systolic blood pressure 0 mm[Hg] Normal (applies t o non-numeric results) 0 mm[Hg] [facility] ([facility]) Body mass index (BMI) [Ratio] 0.00 kg/m2 No rmal (applies to non-numeric results) 0.00 kg/m2 [facility] ([facility]) Body weight Measured 0.00 lbs Normal (applies to n on-numeric results) [facility] Body height 0.00 in Normal (applies to non-numeric resu lts) 0.00 in [facility] ([facility])
[2020-05-12] MEDS ORDERED: LORazepam 1 MG TAB PO ONE (23:30)
--- NOTE | 2020-05-13 08:11 | ECGEPIP ---
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
[2020-05-13] MEDS ORDERED: PALI1TAB4 PO (16:05)
[2020-05-13] MEDS ORDERED: PROP40TA62 PO (16:05)
[2020-05-13] MEDS ORDERED: GABA-845 PO (16:05)
[2020-05-13] MEDS ORDERED: PRAZ2CAP PO (16:05)
[2020-05-13 17:22] LABS: RSV AMPLIFICATION NEGATIVE (NEGATIVE)
[2020-05-13] MEDS ORDERED: ACETAMINOPHEN TAB 650MG DOSE (2X325MG) PO PRN (18:00)
[2020-05-13] MEDS ORDERED: diphenhydrAMINE 25MG CAP PO PRN (18:00)
[2020-05-13] MEDS ORDERED: MOM 30ML SUSPENSION UDC PO PRN (18:00)
[2020-05-13] MEDS ORDERED: MAALOX 30 ML SUSP *UDC PO PRN (18:00)
[2020-05-13] MEDS ORDERED: haloperidoL 5 MG TAB PO PRN (18:00)
--- OUTSIDE RECORDS SUMMARY | 2020-05-13 18:22 | CCD ---
Author Author [facility] Organization [facility] Address Unknown Phone Unavailable Care Team Providers Care Rose Grader Name Role Phone Armond Royal Unavailable Milo, C Oren Unavailable Unavailable Summerfield, C Oren Unavailable Unavailable Summerfield, C Oren Unavailable Unavailable Summerfield, C Oren Unavailable Unavailable Summer[place], C Oren Unavailable Unavailable [place], C Oren Unavailable Unavailable [place], C Oren Unavailable Unavailable Karen Rice Unavailable Nupur Martinez [facility] [employer] Unavailable Unavailable Nupur Martinez [employer] Unavailable Unavailable Nupur Martinez [employer] Unavailable Unavailable Nupur Martinez [employer] Unavailable Unavailable Nupur Martinez [employer] Unavailable Unavailable Nupur Martinez [employer] Unavailable Unavailable Joni Gonzalez Unavailable Clare Coe Unavailable ANIEKT RODRIGUEZ Unavailable Unavailable Oneida Tariq Unavailable Re-disclosure [...] is protected by Article 27-F of the [facility] Public Health law. If you continue you may have access to information: Regarding HIV / AIDS; Provided by facilities licensed or operated by the [facility] Office of Mental Health; or Provided by the [facility] Office for People With Developmental Disabilities. If such information is present, then the following [facility] mandated warning applies: This information has been [...] law may result in a fine or half-way sentence or both. A general authorization for the release of medical or other information is NOT sufficient authorization for further disc losure. Encounters Encounter Providers Location Date Indications Data Source(s ) Extended Individual Psychotherapy - 45 min Attender: Therese Gonzalez [facility] 05/02/2020 10:00:00 AM EST - 05/02/2020 10:00:00 AM EST [facility] ([facility]) Attender: Joni Gonzalez 05/02/2020 12:00:00 AM EST [facility] ([facility]) Outpatient Attender: Daniela Martinez [facility] 04/10/2020 02:30:00 AM EST - 04/10/2020 02:30:00 AM EST [facility] ([facility]) Attender: Daniela MASSEYAMAYA 04/10/2020 12: 00:00 AM EST [facility] ([facility]) Extended Individual Psychotherapy - 45 min Attender: Therese Gonzalez [facility] 03/28/2020 08:00:00 AM EST - 03/28/2020 08:00:00 AM EST [facility] ([facility]) Attender: Joni [facility] 03/28/2020 12:00:00 AM EST [facility] ([facility]) Extended Individual Psychotherapy - 45 min Attender: Therese Gonzalez [facility] 03/25/2020 01:45:00 AM EST - 03/25/2020 01:45:00 AM EST [facility] ([facility]) Attender: Joni [facility] 03/25/2020 12:00:00 AM EST [facility] ([facility]) Brief Individual Psychotherapy - 30 min Attender: Joni valentin [facility] 03/04/2020 03:15:00 AM EST - 03/04/2020 03:15:00 AM EST [facility] ([facility]) [facility] 12:00:00 AM EST [facility] ([facility]) Extended Individual Psychotherapy - 45 min Att[facility]: [facility] 02/19/2020 01:45:00 AM EDT - 02/19/2020 01:45:00 AM EDT [facility] ([facility]) Attender: Joni [facility] 02/19/2020 12:00:00 AM EDT [facility] ([facility]) Extended Individual Psychotherapy - 45 min Attender: Therese Gonzalez [facility] 02/05/2020 01:45:00 AM EDT - 02/05/2020 01:45:00 AM EDT [facility] ([facility]) Attender: Joni Gonzalez 02/05/2020 12:00:00 AM EDT [facility] ([facility]) Outpatient Attender: Daniela Martinez [facility] 02/04/2020 04:00:00 AM EDT - 02/04/2020 04:00:00 AM EDT [facility] ([facility]) Attender: Daniela Martinez [facility] 02/04/2020 12: 00:00 AM EDT [facility] ([facility]) Extended Individual Psychotherapy - 45 min Att[facility]: [facility] 01/18/2020 11:15:00 AM EDT - 01/18/2020 11:15:00 AM EDT [facility] ([facility]) [facility]: [facility] 01/18/2020 12:00:00 AM EDT [facility] ([facility]) Injectable Psychotropic Medication Administration (Inj ection Only) Attender: Oneida Tariq [facility] 10/25/2019 02:00:00 AM EDT - 10/25/2019 02:00:00 AM EDT [facility] ([facility]) Attender: Oneida Tariq 10/25/2019 12:00:00 AM EDT [facility] ([facility]) Injectable Psychotropic Medication Administration (Inj ection Only) Attender: Karen Rice [facility] 10/23/2019 11:30:00 AM EDT - 10/23/2019 11:30:00 AM EDT [facility] ([facility]) TEMPMHCTelemed 30" Psychotherapy Attender: Joni Gonzalez [facility] 10/23/2019 04:00:00 AM EDT - 10/23/2019 04:00:00 AM EDT [facility] ([facility]) Attender: Joni Gonzalez 10/23/2019 12:00:00 AM EDT [facility] ([facility]) Attender: Karen Rice 10/23/2019 12:00:00 AM EDT [facility] ([facility]) [facility]/05/2019 12:02:09 AM EDT [facility] Outpatient Attender: ANIKET [facility] 10/04/2019 10:37:00 AM EDT [facility]: [facility] 10/02/2019 07:48:22 PM EDT [facility] Injectable Medication Administration w/ Monitoring & E ducation Attender: Karen Rice [facility] 10/02/2019 11:00:00 AM EDT - 10/02/2019 11:00:00 AM EDT [facility] ([facility]) Attender: Karen Rice 10/02/2019 12:00:00 AM EDT [facility] ([facility]) Injectable Medication Administration w/ Monitoring & E ducation Attender: Karen Rice [facility] 09/28/2019 01:30:00 AM EDT - 09/28/2019 01:30:00 AM EDT [facility] ([facility]) Attender: Karen Rice 09/28/2019 12:00:00 AM EDT [facility] ([facility]) [facility] 09/22/2019 12:14:57 AM EDT [facility] [id number]"Psychotherapy Attender: Joni Gonzalez [facility] 09/20/2019 10:15:00 AM EDT - 09/20/2019 10:15:00 AM EDT [facility] ([facility]) Attender: Joni Gonzalez 09/20/2019 12:00:00 AM EDT [facility] ([facility]) [id number]"Psychotherapy [facility]: [facility] 09/19/2019 02:00:00 AM EDT - 09/19/2019 02:00:00 AM EDT [facility] ([facility]) Attender: Joni Gonzalez 09/19/2019 12:00:00 AM EDT [facility] ([facility]) Outpatient Attender: Daniela BARBOSA Antonio [facility] 09/14/2019 03:00:00 AM EDT - 09/14/2019 03:00:00 AM EDT [facility] ([facility]) Attender: Daniela BARBOSA 09/14/2019 12: 00:00 AM EDT [facility] ([facility]) TEMPMHCTelemed 30" Psychotherapy [facility] 09/03/2019 01:45:00 AM EDT - 09/03/2019 01:45:00 AM EDT [facility] ([facility]) [facility]: [facility] 09/03/2019 12:00:00 AM EDT [facility] ([facility]) [id number]"Psychotherapy Attender: Joni Gonzalez [facility] 08/20/2019 01:00:00 AM EDT - 08/20/2019 01:00:00 AM EDT [facility] ([facility]) [facility]: [facility] 08/20/2019 12:00:00 AM EDT [facility] ([facility]) Outpatient Attender: Daniela BARBOSA [facility] 08/02/2019 10:30:00 AM EDT - 08/02/2019 10:30:00 AM EDT [facility] ([facility]) TEMPMHCTelemed 30" Psych[facility] 02:00:00 AM EDT - 08/02/2019 02:00:00 AM EDT [facility] ([facility]) Attender: Clare Coe 08/02/2019 12:00:00 AM EDT [facility] ([facility]) Attender: Daniela BARBOSA 08/02/2019 12: 00:00 AM EDT [facility] ([facility]) Outpatient Attender: ANIKET [facility] 07/20/2019 08:01:46 PM EDT [facility] TEMPMHCTelemed 30" Psychotherapy Attender: Clare Coe [facility] 07/19/2019 10:00:00 AM EDT - 07/19/2019 10:00:00 AM EDT [facility] ([facility]) Attender: Clare Saravanan 07/19/2019 12:00:00 AM EDT [facility] ([facility]) Extended Individual Psychotherapy - 45 min Attender: Vandana rodas Saravanan [facility] 07/12/2019 11:00:00 AM EDT - 07/12/2019 11:00:00 AM EDT [facility] ([facility]) Attender: Clare Xiaoh 07/12/2019 12:00:00 AM EDT [facility] ([facility]) Injectable Psychotropic Medication Administration (Inj ection Only) Attender: Karen Rice [facility] 07/06/2019 01:00:00 AM EDT - 07/06/2019 01:00:00 AM EDT [facility] ([facility]) Attender: Karen Rice 07/06/2019 12:00:00 AM EDT [facility] ([facility]) Injectable Psychotropic Medication Administration (Inj ection Only) Attender: Oneida Tariq [facility] 07/03/2019 11:30:00 AM EDT - 07/03/2019 11:30:00 AM EDT [facility] ([facility]) Attender: Oneida Tariq 07/03/2019 12:00:00 AM EDT [facility] ([facility]) Brief Individual Psychotherapy - 30 min Attender: Clare ervin [facility] 06/28/2019 02:45:00 AM EST - 06/28/2019 02:45:00 AM EST [facility] ([facility]) Attender: Clare Coe 06/28/2019 12:00:00 AM EST [facility] ([facility]) Outpatient Attender: Oren Pedraza [facility] 0 06/19/2019 02:45:00 AM EST - 06/19/2019 02:45:00 AM EST [facility] ([facility]) Attender: Oren Pedraza 06/19/2019 12:00:00 AM EST [facility] ([facility]) [facility]: [facility] 06/08/2019 05:21:01 PM [facility] Outpatient Attender: ANIKET [facility] 06/08/2019 09:22:11 AM [facility] Outpatient Attender: ANIKET [facility] 06/08/2019 09:18:57 AM [facility] Extended Individual Psychotherapy - 45 min Attender: [facility] 06/08/2019 03:00:00 AM EST - 06/08/2019 03:00:00 AM EST [facility] ([facility] 12:00:00 AM EST [facility] ([facility]) Extended Individual Psychotherapy - 45 min Attender: [facility] 05/31/2019 10:45:00 AM EST - 05/31/2019 10:45:00 AM EST [facility] ([facility]) Attender: [facility] 05/31/2019 12:00:00 AM EST [facility] ([facility]) Outpatient Attender: ANIKET [facility] 05/04/2019 11:09:01 AM [facility] Injectable Psychotropic Medication Administration (Inj ection Only) Attender: Karen Rice [facility] 04/09/2019 01:00:00 AM EST - 04/09/2019 01:00:00 AM EST [facility] ([facility]) Attender: Karen Rice 04/09/2019 12:00:00 AM EST [facility] ([facility]) Injectable Medication Administration w/ Monitoring & E ducation Attender: Karen Rice [facility] 04/04/2019 01:00:00 AM EST - 04/04/2019 01:00:00 AM EST [facility] ([facility]) Attender: Karen Rice 04/04/2019 12:00:00 AM EST [facility] ([facility]) Injectable Medication Administration w/ Monitoring & E ducation Attender: Karen Dwayne [facility] 04/03/2019 01:15:00 AM EST - 04/03/2019 01:15:00 AM EST [facility] ([facility]) Attender: Karen Rice 04/03/2019 12:00:00 AM EST [facility] ([facility]) Brief Individual Psychotherapy - 30 min Attender: Armondsarita Dahl Yoanna [facility] 04/02/2019 11:30:00 AM EST - 04/02/2019 11:30:00 AM EST [facility] ([facility]) Attender: Armond Lenz 04/02/2019 12:00:0 0 AM EST [facility] ([facility]) Functional Status Medications Medication Brand Name Start Date Product Form Dose Route Admi nistrative Instructions Pharmacy Instructions Status Indications Reaction Description Data Source(s) 24 HR paliperidone 6 MG Extended Release Oral Tablet paliper idone 01/16/2020 12:00:00 AM EDT 6 mg by mouth completed [id number] pa liperidone by mouth [id number] 01/16/2020 04/15/2020 once a day 30 6 mg tablet extended release 24hr 07917 [id number] Daniela Martinez [id number] [facility]) 24 HR paliperidone 6 MG Extended Release Oral Tablet paliper idone 01/16/2020 12:00:00 AM EDT 6 mg by mouth completed 790405 pa liperidone by mouth [id number] 01/16/2020 04/15/2020 once a day 30 6 mg tablet extended release 24hr 46261 [id number] Daniela Martinez [id number] [facility]) Nicotine 2 MG Chewing Gum nicotine (polacrilex) 01/16/2020 12:00:00 AM EDT 2 mg completed 234540 nicotine (polacrilex) in [facility] 01/16/2020 03/16/2020 every four hours 30 2 mg gum as needed 36379 799493 [id number] Daniela Martinez [id number] [facility]) 24 HR paliperidone 6 MG Extended Release Oral Tablet paliper idone 01/16/2020 12:00:00 AM EDT 6 mg by mouth completed 623309 pa liperidone by mouth [id number] 01/16/2020 04/15/2020 once a day 30 6 mg tablet extended release 24hr 16157 174781 [id number] Daniela Martinez [id number] [facility]) quetiapine 100 MG Oral Tablet [Seroquel] Seroquel 01/16/2020 12 :00:00 AM EDT 100 mg by mouth completed 210341 Seroquel by mouth V33722 every night 100 mg tablet 99508 769424 [id number] Daniela dangelo [id number] [facility]) Nicotine 2 MG Chewing Gum nicotine (polacrilex) 01/16/2020 12:00:00 AM EDT 2 mg completed 723895 nicotine (polacrilex) in [facility] 01/16/2020 03/16/2020 every four hours 30 2 mg gum as needed 19935 164301 [id number] Daniela Martinez [id number] [facility]) Propranolol Hydrochloride 40 MG Oral Tablet propranolol 11/21/2019 12:00:00 AM EDT 40 mg by mouth completed 173004 propranolol by [facility] [id number] 11/21/2019 03/16/2020 twice a day 30 40 mg tablet 49312 [id number] Daniela Martinez [id number] [facility]) gabapentin 400 MG Oral Capsule gabapentin 11/21/2019 12:00:00 AM EDT 400 mg by mouth completed 127041 gabapentin by mouth [id number] 11/20 three times a day 400 mg capsule 11991 685330 [id number] Daniela Ribeiro [id number] [facility] ([facility]) Propranolol Hydrochloride 40 MG Oral Tablet propranolol 11/21/2019 12:00:00 AM EDT 40 mg by mouth completed 373006 propranolol by [facility] [id number] 11/21/2019 03/16/2020 twice a day 30 40 mg tablet 56207 [id number] Daniela Martinez [id number] [facility]) Prazosin 2 MG Oral Capsule prazosin 11/21/2019 12:00:00 AM EDT 2 mg by mouth completed [id number] prazosin by mouth [id number] 11/21/2019 at bedtime 2 mg capsule 22121 [id number] Daniela Martinez [id number] [facility]) Alprazolam 2 MG Oral Tablet alprazolam 06/27/2019 12:00:00 AM EST 2 mg by mouth completed 050018 alprazolam by mouth [id number] 201907/26/2019 30 2 mg tablet 68306 106621 [id number] Oren Pedraza [id number] [facility]) Prazosin 2 MG Oral Capsule prazosin 06/19/2019 12:00:00 AM EST 2 mg by mouth completed 353221 prazosin by mouth [id number] 06/19/2019 at bedtime 30 2 mg capsule 38933 787793 [id number] Oren Pedraza 3 [id number] [facility]) gabapentin 400 MG Oral Capsule gabapentin 06/19/2019 12:00:00 AM EST 400 mg completed 100482 gabapentin 06/19/201908/17 three times a day 30 400 mg capsule 92035 609858 [id number] Oren Pedraza [id number] [facility]) Prazosin 2 MG Oral Capsule prazosin 06/19/2019 12:00:00 AM EST 2 mg by mouth completed 352941 prazosin by mouth [id number] 06/19/2019 at bedtime 30 2 mg capsule 73996 570569 [id number] Oren Pedraza 3 [id number] [facility] ([facility]) 2.625 ML paliperidone palmitate 312 MG/ML Prefilled Sy ringe [Invega] Invega Trinza 06/19/2019 12:00:00 AM EST 819 mg/2.625 completed [id number] Invega Trinza intramuscularly 06/19/2019 06/21/2019 every three months 1 819 mg/2.625 mL syringe 78690 006290 [id number] Oren Pedraza [id number] [facility]) gabapentin 400 MG Oral Capsule gabapentin 06/19/2019 12:00:00 AM EST 400 mg completed [id number] gabapentin 06/19/201908/17 three times a day 30 400 mg capsule 70430 175202 [id number] Oren Pedraza 36 [id number] [facility]) gabapentin 400 MG Oral Capsule gabapentin 06/19/2019 12:00:00 AM EST 400 mg completed 577648 gabapentin 06/19/201908/17 three times a day 30 400 mg capsule 22331 500585 [id number] Oren Pedraza 36 [id number] [facility]) Propranolol Hydrochloride 40 MG Oral Tablet propranolol 05/23/2019 12:00:00 AM EST 40 mg by mouth completed [id number] propranolol by [facility] [id number] 05/23/2019 08/18/2019 twice a day 30 40 mg tablet as directed 47088 806637 [id number] Oren Pedraza [id number] [facility]) Propranolol Hydrochloride 40 MG Oral Tablet propranolol 05/23/2019 12:00:00 AM EST 40 mg by mouth completed [id number] propranolol by [facility] [id number] 05/23/2019 08/18/2019 twice a day 30 40 mg tablet as directed 18581 873197 [id number] Oren Pedraza [id number] [facility]) Propranolol Hydrochloride 40 MG Oral Tablet propranolol 05/23/2019 12:00:00 AM EST 40 mg by mouth completed [id number] propranolol by [facility] [id number] 05/23/2019 08/18/2019 twice a day 30 40 mg tablet as directed 10603 140074 [id number] Oren Pedraza [id number] [facility]) Prazosin 2 MG Oral Capsule prazosin 02/19/2019 12:00:00 AM EDT 2 mg by mouth completed [id number] prazosin by mouth [id number] 02/19/2019 at bedtime 30 2 mg capsule 28708 [id number] Oren Pedraza 3 [id number] [facility]) Mirtazapine 45 MG Oral Tablet mirtazapine 02/19/2019 12:00:00 AM EDT 45 mg completed [id number] mirtazapine 02/19/2019 06/19/2019 at bedtime 30 45 mg tablet 87213 099375 [id number] Oren Pedraza [id number] [facility]) quetiapine 300 MG Oral Tablet quetiapine 02/19/2019 12:00:00 AM EDT 300 mg completed [id number] quetiapine 02/19/2019 06/19/2019 at bedtime 30 300 mg tablet 12697 [id number] Oren Pedraza [id number] [facility]) Mirtazapine 45 MG Oral Tablet mirtazapine 02/19/2019 12:00:00 AM EDT 45 mg completed [id number] mirtazapine 02/19/2019 06/19/2019 at bedtime 30 45 mg tablet 49222 [id number] Oren Pedraza [id number] [facility]) quetiapine 300 MG Oral Tablet quetiapine 02/19/2019 12:00:00 AM EDT 300 mg completed [id number] quetiapine 02/19/2019 06/19/2019 at bedtime 30 300 mg tablet 23282 797779 [id number] Oren Pedraza [id number] [facility]) Mirtazapine 45 MG Oral Tablet mirtazapine 02/19/2019 12:00:00 AM EDT 45 mg completed [id number] mirtazapine 02/19/2019 06/19/2019 at bedtime 30 45 mg tablet 94907 [id number] Oren Pedraza [id number] [facility]) Mirtazapine 45 MG Oral Tablet mirtazapine 02/19/2019 12:00:00 AM EDT 45 mg completed [id number] mirtazapine 02/19/2019 06/19/2019 at bedtime 30 45 mg tablet 99073 [id number] [id number] Oren Pedraza [id number] [facility]) quetiapine 300 MG Oral Tablet quetiapine 02/19/2019 12:00:00 AM EDT 300 mg completed [id number] quetiapine 02/19/2019 06/19/2019 at bedtime 30 300 mg tablet 88792 [id number] Oren Pedraza [id number] [facility]) quetiapine 300 MG Oral Tablet quetiapine 02/19/2019 12:00:00 AM EDT 300 mg completed [id number] quetiapine 02/19/2019 06/19/2019 at bedtime 30 300 mg tablet 36481 [id number] Oren Pedraza [id number] [facility] ([facility]) Prazosin 2 MG Oral Capsule prazosin 02/19/2019 12:00:00 AM EDT 2 mg by mouth completed [id number] prazosin by mouth [id number] 02/19/2019 at bedtime 30 2 mg capsule 75309 [id number] Oren Pedraza 3 [id number] [facility]) Insurance Providers Payer name Policy type / Coverage type Policy ID Covered democrat ID Covered democrat's relationship to toney Policy Toney Plan Information [facility] [id number] SP [id number] EMEDNY [id number] SP [id number] [facility] [id number] SP [id number] MEDICARE COMPLETE [id number] SP [id number] [facility] [id number] SP [id number] [facility] [id number] SP [id number] [facility] P UNAVAILABLE S UNAVAILABLE Medicare O UNAVAILABLE S UNAVAILA BLE Medicaid S UNAVAILABLE S UNAVAILA [facility] [id number] SP [id number] Managed Care - [facility] P UNAVAILABLE S UNAVAILABLE [facility] I [id number] Self [id number] [facility] I [id number] Self [id number] ANSI-Not a Secondary Insurance [id number] ANSI-Not a Secondary Insurance [id number] [facility] [id number] SP [id number] [facility] [id number] SP [id number] ANSI-Not a Secondary Insurance [id number] ANSI-Not a Secondary Insurance [id number] ANSI-Not a Secondary Insurance [id number] [facility] [id number] SP [id number] ANSI-Not a Secondary Insurance [id number] ANSI-Not a Secondary Insurance [id number] TOTAL CARE MEDICAID/GARAY [id number] Diana [id number] TOTAL CARE MEDICAID/GARAY [id number] Diana [id number] COMMERCIAL GENERIC [id number] Diana E [id number] S [id number] 400 VALUE OPTIONS FOR MVP [id number] S [id number] MVP MCDO [id number] SP [id number] VALUE OPTIONS FOR MVP [id number] S [id number] [facility] PHYSICIAN [id number] S [id number] MEDICAID [id number] SP [id number] UNHC COMMUNITY PLAN MCDHMO [id number] SP [id number] [facility] U [id number] Self [id number] EXCELLUS H [id number] Self [id number] [facility](MCA[facility]) O [id number] S [id number] TOTAL CARE MEDICAID [id number] Diana [id number] TOTAL CARE MEDICAID [id number] Diana [id number] COMMERCIAL GENERIC UNAVAILABLE Diana UNAVAILABLE BCBS HMO [place] O [id number] S [id number] Problems, Conditions, and Diagnoses Code Display Name Description Problem Type Effective Dates Data Source(s) F17.200 Nicotine dependence, unspecified, uncomp licated Tobacco Use Disorder, Moderate Condition 05/02/2020 12:00:00 AM EST [facility] ([facility]) F10.20 Alcohol dependence, uncomplicated Alcohol Use Disorder , Severe Condition 05/02/2020 12:00:00 AM EST [facility] ([facility]) F20.0 Paranoid schizophrenia Paranoid schizophrenia Conditio n 05/02/2020 12:00:00 AM EST [facility] ([facility]) Surgeries/Procedures Procedure Description Date Indications Data Source(s) Extended Individual Psychotherapy - 45 min 05/02/2020 12:00:00 AM EST - 05/02/2020 12:00:00 AM EST [facility] ([facility]) Extended Individual Psychotherapy - 45 min 12:00:00 AM EST [facility] ([facility]) MHC Telemed E/M Lvl 3--Est pt 04/10/2020 12:00:00 AM EST - 04/10/2020 12:00:00 AM EST [facility] ([facility]) Telemed A/O 30" 04/10/2020 12:00:00 AM EST [facility] ([facility]) MHC Telemed E/M Lvl 3--Est pt 04/10/2020 12:00:[address] [facility] ([facility]) Extended Individual Psychotherapy - 45 min 03/28/2020 12:00:00 AM EST - 03/28/2020 12:00:00 AM EST [facility] ([facility]) Extended Individual Psychotherapy - 45 min 0 12:00:00 AM EST [facility] ([facility]) Extended Individual Psychotherapy - 45 min 03/25/2020 12:00:00 AM EST - 03/25/2020 12:00:00 AM EST [facility] ([facility]) Extended Individual Psychotherapy - 45 min 0 12:00:00 AM EST [facility] ([facility]) Brief Individual Psychotherapy - 30 min 03/04/2020 12:00:00 AM EST - 03/04/2020 12:00:00 AM EST [facility] ([facility]) Brief Individual Psychotherapy - 30 min 03/04/2020 12: 00:00 AM EST [facility] ([facility]) Extended Individual Psychotherapy - 45 min 02/19/2020 12:00:00 AM EDT - 02/19/2020 12:00:00 AM EDT [facility] ([facility]) Extended Individual Psychotherapy - 45 min 0 12:00:00 AM EDT [facility] ([facility]) Extended Individual Psychotherapy - 45 min 02/05/2020 12:00:00 AM EDT - 02/05/2020 12:00:00 AM EDT [facility] ([facility]) Extended Individual Psychotherapy - 45 min 0 12:00:00 AM EDT [facility] ([facility]) MHC Telemed E/M Lvl 3--Est pt 02/04/2020 12:00:00 AM EDT - 02/04/2020 12:00:00 AM EDT [facility] ([facility]) Telemed A/O 30" 02/04/2020 12:00:00 AM EDT [facility] ([facility]) MHC Telemed E/M Lvl 3--Est pt 02/04/2020 12:00:00 AM E DT [facility] ([facility]) Extended Individual Psychotherapy - 45 min 01/18/2020 12:00:00 AM EDT - 01/18/2020 12:00:00 AM EDT [facility] ([facility]) Extended Individual Psychotherapy - 45 min 0 12:00:00 AM EDT [facility] ([facility]) THERAPEUTIC PROPHYLACTIC/DX INJECTION SUBQ/IM 10/25/2019 12:00:00 AM EDT - 10/25/2019 12:00:00 AM EDT [facility] ([facility]) THERAPEUTIC PROPHYLACTIC/DX INJECTION SUBQ/IM 10/25/19 20 12:00:00 AM EDT [facility] ([facility]) TEMPMHCTelemed 30" Psychotherapy 020 12:00:00 AM EDT - 10/23/2019 12:00:00 AM EDT [facility] ([facility]) TEMPMHCTelemed 30" Psychotherapy 10/23/2019 12:00:00 A M EDT [facility] ([facility]) THERAPEUTIC PROPHYLACTIC/DX INJECTION SUBQ/IM 10/23/2019 12:00:00 AM EDT - 10/23/2019 12:00:00 AM EDT [facility] ([facility]) THERAPEUTIC PROPHYLACTIC/DX INJECTION SUBQ/IM 10/23/19 20 12:00:00 AM EDT [facility] ([facility]) Comprehensive medication services, per 15 minutes 10/02/2019 12:00:00 AM EDT - 10/02/2019 12:00:00 AM EDT [facility] ([facility]) Comprehensive medication services, per 15 minutes 10/02/2019 12:00:00 AM EDT [facility] ([facility]) Comprehensive medication services, per 15 minutes 09/28/2019 12:00:00 AM EDT - 09/28/2019 12:00:00 AM EDT [facility] ([facility]) Comprehensive medication services, per 15 minutes 09/28/2019 12:00:00 AM EDT [facility] ([facility]) [id number]"Psychotherapy 0 12:00:00 AM EDT - 09/20/2019 12:00:00 AM EDT [facility] ([facility]) [id number]"Psychotherapy 09/20/2019 12:00:00 AM EDT [facility] ([facility]) [id number]"Psychotherapy 0 12:00:00 AM EDT - 09/19/2019 12:00:00 AM EDT [facility] ([facility]) [id number]"Psychotherapy 09/19/2019 12:00:00 AM EDT [facility] ([facility]) MHC Telemed E/M Lvl 3--Est pt 09/14/2019 12:00:00 AM EDT - 09/14/2019 12:00:00 AM EDT [facility] ([facility]) Telemed A/O 30" 09/14/2019 12:00:00 AM EDT [facility] ([facility]) MHC Telemed E/M Lvl 3--Est pt 09/14/2019 12:00:00 AM E DT [facility] ([facility]) TEMPMHCTelemed 30" Psychotherapy 020 12:00:00 AM EDT - 09/03/2019 12:00:00 AM EDT [facility] ([facility]) TEMPMHCTelemed 30" Psychotherapy 09/03/2019 12:00:00 A M EDT [facility] ([facility]) [id number]"Psychotherapy 0 12:00:00 AM EDT - 08/20/2019 12:00:00 AM EDT [facility] ([facility]) [id number]"Psychotherapy 08/20/2019 12:00:00 AM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
[2020-05-13] MEDS: traZODone 50 MG TAB PO PRN (20:21)
[2020-05-13] MEDS ORDERED: OLANZapine 5 MG TAB PO SCH (21:00)
[2020-05-14 00:58] VITALS: BP 125/77
[2020-05-14 06:23] VITALS: BP 128/77
[2020-05-14] MEDS ORDERED: OLANZapine 5 MG TAB PO SCH (09:00)
[2020-05-14] MEDS ORDERED: INFLUENZA QUADRIVALENT PF VACCINE 0.5ML SYRINGE IM ONE (09:00)
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
[2020-05-14] MEDS: PALIPERIDONE 6 MG ER TAB (INVEGA) PO SCH (14:10)
[2020-05-14] MEDS: PROPRANOLOL 20 MG TAB PO SCH ×2 (14:11→20:03)
[2020-05-14] MEDS: GABAPENTIN 100 MG CAP PO SCH ×2 (15:19→20:03)
[2020-05-14 16:23] VITALS: BP 120/83
[2020-05-14] MEDS: PRAZOSIN 1 MG CAP PO SCH (20:04)
[2020-05-14] MEDS: traZODone 50 MG TAB PO PRN (20:06)
[2020-05-15] MEDS ORDERED: traZODone 50 MG TAB PO ONE
[2020-05-15 06:00] VITALS: BP 153/93
[2020-05-15] MEDS: PALIPERIDONE 6 MG ER TAB (INVEGA) PO SCH (09:33)
[2020-05-15] MEDS: PROPRANOLOL 20 MG TAB PO SCH ×2 (09:34→20:39)
[2020-05-15] MEDS: GABAPENTIN 100 MG CAP PO SCH ×3 (09:34→20:38)
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
[2020-05-15 17:52] VITALS: BP 133/88
[2020-05-15] MEDS: PRAZOSIN 1 MG CAP PO SCH (20:38)
[2020-05-15] MEDS: traZODone 50 MG TAB PO PRN (21:29)
[2020-05-16] MEDS ORDERED: QUEtiapine FUMARATE 50MG TAB PO ONE (02:45)
[2020-05-16 06:00] VITALS: BP 138/82
[2020-05-16 08:11] VITALS: BP 127/82
[2020-05-16] MEDS: PROPRANOLOL 20 MG TAB PO SCH (08:11)
[2020-05-16] MEDS: PALIPERIDONE 6 MG ER TAB (INVEGA) PO SCH (08:11)
[2020-05-16] MEDS: GABAPENTIN 100 MG CAP PO SCH (08:12)
[2020-05-16] MEDS ORDERED: PALI1TAB4 PO (09:55)
[2020-05-16] MEDS ORDERED: PRAZ2CAP PO (09:55)
[2020-05-16] MEDS ORDERED: PROP40TA62 PO (09:56)
[2020-05-16] MEDS ORDERED: MINI1CAP PO (09:56)
[2020-05-16] MEDS ORDERED: GABA-845 PO (09:56)
[2020-05-16] MEDS ORDERED: PROP20TA PO (09:56)
[2020-05-16] MEDS ORDERED: PALI1TAB3 PO (09:56)
[2020-05-16] MEDS ORDERED: GABA-1171 PO (09:56)
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
== END 2020-05-16 11:45 | disposition home or self-care (01) | DRG 885 ==
LOC: M ED 16:39 → M ED INP 05-13 18:00 → M PSY 05-13 18:57
PROVIDERS: ADMIT Psychiatry & Neurology Psychiatry; ATTEND Psychiatry & Neurology Psychiatry
DX: F20.9 Schizophrenia, unspecified (principal); F10.10 Alcohol abuse, uncomplicated; F15.10 Other stimulant abuse, uncomplicated; F17.210 Nicotine dependence, cigarettes, uncomplicated; F43.10 Post-traumatic stress disorder, unspecified; F32.9 Major depressive disorder, single episode, unspecified; F41.9 Anxiety disorder, unspecified; F12.10 Cannabis abuse, uncomplicated; Z91.5 Personal history of self-harm; Z81.8 Family history of other mental and behavioral disorders; Z91.19 Patient's noncompliance with other medical treatment and regimen; Z11.52 Encounter for screening for COVID-19; Z79.899 Other long term (current) drug therapy

== ENCOUNTER 2020-06-22 01:10 | Inpatient (IN) | payer MEDICARE, MEDICAID ==
[~2020-06-22] VITALS: Ht 185.4 cm; Wt 75.0 kg
[~2020-06-22 01:10] MED LIST changes: +GABA-1171 PO; +MINI1CAP PO; +PALI1TAB3 PO; +PALI1TAB4 PO; +PROP20TA PO; +PROP40TA62 PO
[2020-06-22 01:46] LABS: HEMATOCRIT 37.2 % (42.0-52.0); HEMOGLOBIN 12.5 g/dl (13.5-17.5); MEAN CORPUSCULAR HEMOGLOBIN 28.7 pg (27.0-33.0); MEAN CORPUSCULAR HGB CONC 33.6 g/dl (32.0-36.5); MEAN CORPUSCULAR VOLUME 85.3 fl (80.0-96.0); PLATELET COUNT, AUTOMATED 246 10^3/uL (150-450); RED BLOOD COUNT 4.36 10^6/uL (4.30-6.10); WHITE BLOOD COUNT 7.6 10^3/uL (4.0-10.0)
[2020-06-22 02:15] LABS: AMPHETAMINES LEVEL URINE POSITIVE (NEGATIVE); BARBITURATES URINE NEGATIVE (NEGATIVE); BENZODIAZEPINES URINE NEGATIVE (NEGATIVE); CANNABINOIDS URINE NEGATIVE (NEGATIVE); COCAINE METABOLITE URINE POSITIVE (NEGATIVE); METHADONE URINE NEGATIVE (NEGATIVE); OPIATES URINE NEGATIVE (NEGATIVE); PHENCYCLIDINE URINE NEGATIVE (NEGATIVE)
[2020-06-22 02:29] LABS: ACETAMINOPHEN LEVEL < 2.0 UG/ML (10.0-30.0); ALBUMIN 3.9 GM/DL (3.2-5.2); ALT/SGPT 17 U/L (12-78); BILIRUBIN,DIRECT 0.1 MG/DL (0.0-0.2); BILIRUBIN,TOTAL 0.3 MG/DL (0.2-1.0); BLOOD UREA NITROGEN 5 MG/DL (7-18); CALCIUM LEVEL 8.8 MG/DL (8.5-10.1); CARBON DIOXIDE LEVEL 24 MEQ/L (21-32); CHLORIDE LEVEL 102 MEQ/L (98-107); CREATININE FOR GFR 0.81 MG/DL (0.70-1.30); ETHYL ALCOHOL (ETHANOL) 0.251 % (0.000-0.010); GLOMERULAR FILTRATION RATE > 60.0 (>60); GLUCOSE, FASTING 90 MG/DL (70-100); POTASSIUM SERUM 3.6 MEQ/L (3.5-5.1); SALICYLATE LEVEL 4.5 MG/DL (5.0-30.0); SODIUM LEVEL 135 MEQ/L (136-145); THYROID STIMULATING HORMONE 0.369 uIU/ML (0.358-3.740); TOTAL PROTEIN 7.4 GM/DL (6.4-8.2)
[2020-06-22] MEDS ORDERED: PRAZ2CAP PO (11:27)
[2020-06-22] MEDS ORDERED: PALI1TAB4 PO (11:27)
[2020-06-22] MEDS ORDERED: PROP40TA62 PO (11:27)
[2020-06-22] MEDS ORDERED: GABA-845 PO (11:27)
[2020-06-22] MEDS ORDERED: LORazepam 2 MG TAB PO STA (13:16)
[2020-06-23] MEDS ORDERED: PRAZOSIN 1 MG CAP PO ONE (01:35)
[2020-06-23] MEDS ORDERED: PROPRANOLOL 20 MG TAB PO ONE (01:35)
[2020-06-23] MEDS ORDERED: GABAPENTIN 400MG CAP PO ONE (01:35)
[2020-06-23 11:37] LABS: RSV AMPLIFICATION NEGATIVE (NEGATIVE)
[2020-06-23] MEDS ORDERED: MAALOX 30 ML SUSP *UDC PO PRN (12:00)
[2020-06-23] MEDS ORDERED: MOM 30ML SUSPENSION UDC PO PRN (12:00)
[2020-06-23] MEDS ORDERED: GABAPENTIN 400MG CAP PO SCH (12:00)
[2020-06-23] MEDS ORDERED: ACETAMINOPHEN TAB 650MG DOSE (2X325MG) PO PRN (12:00)
[2020-06-23 13:39] VITALS: BP 119/79
[2020-06-23] MEDS ORDERED: haloperidoL 5 MG TAB PO PRN (16:05)
[2020-06-23] MEDS: GABAPENTIN 400MG CAP PO SCH ×2 (16:11→20:32)
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
[2020-06-23] MEDS: PROPRANOLOL 20 MG TAB PO SCH (20:32)
[2020-06-23] MEDS: PRAZOSIN 1 MG CAP PO SCH (20:33)
[2020-06-23] MEDS: traZODone 50 MG TAB PO PRN (20:35)
[2020-06-23] MEDS ORDERED: PROPRANOLOL 20 MG TAB PO SCH (21:00)
[2020-06-23] MEDS ORDERED: PRAZOSIN 1 MG CAP PO SCH (21:00)
[2020-06-24 06:02] VITALS: BP 101/59
[2020-06-24] MEDS ORDERED: PALIPERIDONE 3 MG ER TAB (INVEGA) PO SCH (09:00)
[2020-06-24] MEDS: PROPRANOLOL 20 MG TAB PO SCH ×2 (09:36→20:26)
[2020-06-24] MEDS: GABAPENTIN 400MG CAP PO SCH ×3 (09:36→20:26)
[2020-06-24] MEDS: PALIPERIDONE 3 MG ER TAB (INVEGA) PO SCH (09:36)
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
--- NOTE | 2020-06-24 16:23 | MHIPNPDOC ---
[facility] Progress Note Progress Note DATE OF SERVICE: 06/24/20 HISTORY: 30-year-old male brought in by police following arguments with and intoxication. History of noncompliance with treatment. VITAL SIGNS: See below. NEW TEST RESULTS:, None. CURRENT MEDICATIONS: See below. MENTAL STATUS EXAMINATION: Patient is a 30-year old male, who is more cooperative today, less hostile. Speech: Is normal. No gross disturbance. Language skills no gross disturbance. Thought processes including: Wanting to be discharged. Thought content: Focused on discharge. Denies noncompliance. Abstract reasoning, and computation: Able to abstract and compute. Description of associations: No loose association. Description of abnormal or psychotic thoughts:. No psychotic thought. Judgment: Poor. Insight: Poor. Orientation: 3. Recent and remote memory:. No disturbance. Attention span and concentration: Intact. Language:. No disturbance. Fund of knowledge: Reasonable. Mood: Good. Affect:, Congruent. DIAGNOSES: 1. Substance abuse. 2. History of treatment of schizophrenia. 3., Marital stressors. ASSESSMENT: As above MANAGEMENT PLAN:. We'll continue to observe and perhaps get more information. TIME SPENT: 35 minutes. Vital Signs Vital Signs Date Time Temp Pulse Resp B/P (MAP) Pulse Ox O2 Delivery O2 Flow Rate FiO2 06/24/20 09:36 65 135/71 06/24/20 06:02 97.9 18 100 Room Air Current Medications Current Medications Medications (Trade) Dose Ordered Sig/Christie Route PRN Reason Start Time Stop Time Status Last Admin Dose Admin Acetaminophen (Tylenol Tab) 650 mg Q6HP PRN PO HEADACHE or DISCOMFORT 06/23/20 12:00 Al Hydrox/Mg Hydrox/Simethicone (Mylanta) 30 ml Q4HP PRN PO HEARTBURN/INDIGESTION 06/23/20 12:00 Gabapentin (Neurontin) 400 mg TID PO 06/23/20 12:00 06/23/20 14:55 DC Gabapentin (Neurontin) 400 mg TID PO 06/23/20 16:00 06/24/20 15:13 Haloperidol (Haldol) 5 mg Q6HP PRN PO AGITATION 06/23/20 16:05 Home Med (Med Rec Complete!) ASDIRECTED XX 06/22/20 16:50 06/22/20 16:58 DC Lorazepam (Ativan) 2 mg STAT STAT PO 06/22/20 13:16 06/22/20 13:17 DC 06/22/20 14:35 Magnesium Hydroxide (Milk Of Magnesia) 30 ml DAILYPRN PRN PO CONSTIPATION 06/23/20 12:00 Miscellaneous (Unresolved Clarification Entry) SEE LABEL COMMENTS DAILY XX 06/23/20 09:00 06/23/20 15:45 DC Paliperidone (Invega) 9 mg DAILY PO 06/24/20 09:00 06/23/20 14:55 DC Paliperidone (Invega) 9 mg QAM PO 06/24/20 09:00 06/24/20 09:36 Prazosin HCl (Minipress) 6 mg QHS PO 06/23/20 21:00 06/23/20 14:55 DC Prazosin HCl (Minipress) 6 mg QHS PO 06/23/20 21:00 06/23/20 20:33 Propranolol HCl (Inderal) 40 mg BID PO 06/23/20 21:00 06/23/20 14:55 DC Propranolol HCl (Inderal) 40 mg BID PO 06/23/20 21:00 06/24/20 09:36 Trazodone HCl (Desyrel) 50 mg QHSP PRN PO INSOMNIA 06/23/20 12:00 06/23/20 20:35 Allergies Coded Allergies: No Known Allergies (Unverified , 05/12/20) NICOLE RIVERA MD Jun 24, 2020 16:23
[2020-06-24 16:47] VITALS: BP 118/69
[2020-06-24] MEDS: PRAZOSIN 1 MG CAP PO SCH (20:26)
[2020-06-24] MEDS: traZODone 50 MG TAB PO PRN (20:26)
[2020-06-25 06:34] VITALS: BP 130/63
[2020-06-25] MEDS: PALIPERIDONE 3 MG ER TAB (INVEGA) PO SCH (09:19)
[2020-06-25] MEDS: GABAPENTIN 400MG CAP PO SCH (09:19)
[2020-06-25 09:22] VITALS: BP 125/70
[2020-06-25] MEDS: PROPRANOLOL 20 MG TAB PO SCH (09:22)
--- NOTE | 2020-06-25 15:38 | MHDSPDOC ---
[facility] Discharge Summary Discharge Summary DATE OF ADMISSION: Jun 23, 2020 at 12:00 DATE OF DISCHARGE: Jun 25, 2020 at 13:15 DISCHARGE DIAGNOSES: 1., Alcohol intoxication. 2., Noncompliance with medication and treatment. REASON FOR ADMISSION: Argument with his picked up by police made suicidal statements CONSULTANTS INVOLVED: None TREATMENT AND PROGRESS ON THE UNIT :. Patient demonstrated no difficulties on the unit and denied suicidal or homicidal ideation. HOSPITAL COURSE: No medications were used, except the patient has previously taken an outpatient including prazosin, propranolol, paliperidone, but patient is been noncompliant DISCHARGE ASSESSMENT: Alcohol intoxication with noncompliance to medication MENTAL STATUS EXAMINATION ON DISCHARGE: Patient is a, 30-year old male, who is, pleasant and cooperative. Speech is. No gross disturbance. Language skills are. No gross disturbance. Thought processes including:. No gross disturbance. Thought content: Wants to go home. Abstract reasoning, and computation:, Able to abstract and computer. Description of associations:. No loose association. Description of abnormal or psychotic thoughts:. No abnormal or psychotic thou ghts. Judgment:, Poor. Insight: None. Orientation to 3. Recent and remote memory: Intact. Attention span and concentration: Intact. Language:. No gross disturbance. Fund of knowledge: Reasonable. Mood: Good. Affect:. Congruent. MEDICATIONS ON DISCHARGE: -Continue on home medications, propranolol, prazosin, paliperidone and gabapentin for what we assumed to be his psychosis. He demonstrated no psychotic symptoms here PLAN/FOLLOWUP ARRANGEMENTS: Return to his clinic. The amount of time spent in the coordination of care for this patient was approximately, 35 minutes. Vital Signs/I&Os Vital Signs Date Time Temp Pulse Resp B/P (MAP) Pulse Ox O2 Delivery O2 Flow Rate FiO2 06/25/20 09:22 102 125/70 06/25/20 06:34 98.7 18 99 Room Air Medications Scheduled Gabapentin (Gabapentin) 400 Mg Capsule, 400 MG PO TID, (Reported) Paliperidone (Paliperidone ER) 9 Mg Tab.er.24, 9 MG PO DAILY, (Reported) Prazosin Hcl (Prazosin HCl) 2 Mg Capsule, 6 MG PO QHS, (Reported) Propranolol HCl (Propranolol HCl) 40 Mg Tablet, 40 MG PO BID, (Reported) Allergies Coded Allergies: No Known Allergies (Unverified , 05/12/20) NICOLE RIVERA MD Jun 25, 2020 15:38
== END 2020-06-25 13:15 | disposition home or self-care (01) | DRG 897 ==
LOC: M ED 01:10 → M ED INP 06-23 12:00 → M PSY 06-23 13:35
PROVIDERS: ADMIT Psychiatry & Neurology Child & Adolescent Psychiatry; ATTEND Psychiatry & Neurology Child & Adolescent Psychiatry
DX: F10.151 Alcohol abuse with alcohol-induced psychotic disorder with hallucinations (principal); F20.9 Schizophrenia, unspecified; F14.10 Cocaine abuse, uncomplicated; F15.10 Other stimulant abuse, uncomplicated; F12.10 Cannabis abuse, uncomplicated; F10.129 Alcohol abuse with intoxication, unspecified; Z20.822 Contact with and (suspected) exposure to COVID-19; Z79.899 Other long term (current) drug therapy; Z91.14 Patient's other noncompliance with medication regimen; Z63.0 Problems in relationship with spouse or partner; Z91.5 Personal history of self-harm

== ENCOUNTER 2020-07-12 13:13 | Inpatient (IN) | payer MEDICARE, MEDICAID ==
[~2020-07-12] VITALS: Ht 185.4 cm; Wt 77.4 kg
[2020-07-12 14:05] LABS: HEMATOCRIT 37.9 % (42.0-52.0); HEMOGLOBIN 13.5 g/dl (13.5-17.5); MEAN CORPUSCULAR HEMOGLOBIN 29.3 pg (27.0-33.0); MEAN CORPUSCULAR HGB CONC 35.6 g/dl (32.0-36.5); MEAN CORPUSCULAR VOLUME 82.2 fl (80.0-96.0); PLATELET COUNT, AUTOMATED 212 10^3/uL (150-450); RED BLOOD COUNT 4.61 10^6/uL (4.30-6.10); WHITE BLOOD COUNT 11.4 10^3/uL (4.0-10.0)
[2020-07-12 14:17] LABS: AMPHETAMINES LEVEL URINE NEGATIVE (NEGATIVE); BARBITURATES URINE NEGATIVE (NEGATIVE); BENZODIAZEPINES URINE NEGATIVE (NEGATIVE); CANNABINOIDS URINE NEGATIVE (NEGATIVE); COCAINE METABOLITE URINE POSITIVE (NEGATIVE); METHADONE URINE NEGATIVE (NEGATIVE); OPIATES URINE NEGATIVE (NEGATIVE); PHENCYCLIDINE URINE NEGATIVE (NEGATIVE)
[2020-07-12 14:32] LABS: ACETAMINOPHEN LEVEL < 2.0 UG/ML (10.0-30.0); ALBUMIN 4.3 GM/DL (3.2-5.2); ALT/SGPT 37 U/L (12-78); BILIRUBIN,DIRECT 0.2 MG/DL (0.0-0.2); BILIRUBIN,TOTAL 0.6 MG/DL (0.2-1.0); BLOOD UREA NITROGEN 2 MG/DL (7-18); CALCIUM LEVEL 8.9 MG/DL (8.5-10.1); CARBON DIOXIDE LEVEL 25 MEQ/L (21-32); CHLORIDE LEVEL 84 MEQ/L (98-107); CREATININE FOR GFR 0.67 MG/DL (0.70-1.30); ETHYL ALCOHOL (ETHANOL) 0.188 % (0.000-0.010); GLOMERULAR FILTRATION RATE > 60.0 (>60); GLUCOSE, FASTING 102 MG/DL (70-100); POTASSIUM SERUM 3.4 MEQ/L (3.5-5.1); SALICYLATE LEVEL 6.9 MG/DL (5.0-30.0); SODIUM LEVEL 120 MEQ/L (136-145); THYROID STIMULATING HORMONE 0.163 uIU/ML (0.358-3.740); TOTAL PROTEIN 7.8 GM/DL (6.4-8.2)
[2020-07-12] MEDS ORDERED: NICOTINE 21MG/24HR 1 EA TRANSDERMAL TD ONE (14:55)
[2020-07-12 16:13] LABS: RSV AMPLIFICATION NEGATIVE (NEGATIVE)
[2020-07-12] MEDS ORDERED: MAALOX 30 ML SUSP *UDC PO PRN (21:55)
[2020-07-12] MEDS ORDERED: ACETAMINOPHEN TAB 650MG DOSE (2X325MG) PO PRN (21:55)
[2020-07-12] MEDS ORDERED: OLANZapine ORAL DISINTEGRATING TAB 5MG PO PRN (21:55)
[2020-07-12] MEDS ORDERED: MOM 30ML SUSPENSION UDC PO PRN (21:55)
[2020-07-12 22:40] VITALS: BP 101/69
[2020-07-12] MEDS: QUEtiapine FUMARATE 200 MG TAB PO SCH (23:23)
[2020-07-13 06:25] VITALS: BP 105/67
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
[2020-07-13 11:16] LABS: FREE T4 1.42 NG/DL (0.76-1.46)
--- NOTE | 2020-07-13 11:47 | MHHPEPDOC ---
General Date Of Admission: Jul 13, 2020 Legal Status: 9.39 Chief Complaint Frightened History of Present Illness HISTORY OF THE PRESENT ILLNESS: Patient is a 30 -year-old , male HISTORY OF THE PRESENT ILLNESS [facility]: Patient is a 30 -year-old A frican [place], male, who has been using amphetamines, cocaine and alcohol. Girlfriend's daughter called police. Patient went out walking and police picked him up and brought him here. Girlfriend states he has not been using his medications and not been going to his outpatient appointments. Past admissions reveal similar behavior . Patient gets counseling at [facility], but apparently has not been going. He shouldn't has been on paliperidone, propranolol, and according to girlfriend has not been taking it. He was discharged from here in April with similar complaints. He states he drinks a sixpack of beer and uses cocaine. He did not admit to amphetamine use. Amphetamine use was in his tox screen. Patient made suicide attempt or gesture in April. Patient complained of hearing voices, but does not presently he is presently denying hallucinations, delusions, obsessions, compulsions and phobias. Patient has had numerous admissions and during those admissions. He has been noncompliant with meds and has had thoughts of harming himself and girlfriend. He has had thoughts of jumping off bridges in the past and other suicidal thoughts. He has been on numerous medications including Prozac, Xanax, Wellbutrin, Adderall, Klonopin, Celexa * Pt self-presents to ED requesting admission due to suffering from command AH to . Pt has a long hx of Schizophrenia and polysubstance abuse. Last admitted to [facility] 06/23/20 and d/c 06/25/20. * pt states, "I'm here because of my depression and everything." He reports presenting to the ED requesting admission to [facility] due to his paranoia, thoughts of killing himself and command AH. States he checked himself in a hotel earlier today, but was unable to stay due to feeling "people are following me and t hey are going to kill me." He reports suffering from command AH for the past 2 days. States the voices are telling him he should kill himself & is requesting admission to [facility] because "I feel safe here." Pt admits to self-medicating with ETOH and Cocaine at the hotel this morning. Pt is now sober, but still quite drowsy Patient admits to cocaine and alcohol use. Last admission, patient was also psychotic, but cleared rapidly and demanded discharge today. Patient remains under covers as he didn't emergency room and mumbling. Psychiatric Review of Systems Depression (2 or more weeks): denies Karen (4 or more days of): denies Psychosis: delusions, paranoia, disorganization PTSD: denies Anxiety: denies Anxiety/ 6 months or more of: irritability Past Psychiatric History Previous Psychiatric Diagnosis: Polysubstance abuse. Supposedly, psychoses. Previous Psychiatric Admissions: Recent admission. Psychosis secondary to substance abuse. Suicide Attempts: Ideations and gestures. Psychiatric Follow-up: Noncompliant with follow-up. Psychiatric medications: Seroquel 200 at bedtime. Past Medical History Medical Problems Not applicable Head Injury: No Seizures: No Hospitalizations: Yes Surgeries: No Family Medical/Psychiatric HX Psychiatric Disorders: No Addiction: No Suicide Attemps/Completions: No Addiction History alcohol, cocaine, amphetamines Social History Childhood: Review past history. Abuse/Trauma: No information. Current Living Situation:, Lives in an apartment alone. Education:. High school. Employment: Numerous jobs. Social Support: Lacking. Legal:. No present legal issues. Marital:, Single. Mental Status Examination General Appearance: unkempt, disheveled, appears stated age Build: average Demeanor: hostile, withdrawn Eye Contact: avoidant Activity: slowed Behavior: uncooperative Speech: slurred, rapid, low in volume Mood: depressed Affect: constricted Thought Process: incoherent, loose, flight of ideas Thought Content (Delusions): persecutory Thought Content (Other): appears paranoid Thought Content (Aggressive): aggressive (assess) Perception (Hallucinations): auditory Perception (Other): none reported Cognition (Impairment of): attention/concentration, ability to abstract Cognition(Intelligence Est.): average Oriented: Oriented times three Insight: poor Judgment: Poor Psychosis: Psychotic Perceptions Diagnoses Psychosis secondary to drug intake A-FIB/CHADSVASC A-FIB History Current/History of A-Fib/PAF?: No Current PO Anticoag Therapy: No Age/Risk Factor Scoring CHADSVASC: CHADSVASC Response (Comments) Value Age Risk Factor Age < 65 years old 0 Gender Risk Factor Male 0 Hx of CHF No 0 Hx of HTN No 0 Hx of Stroke/TIA/or VTE No 0 Hx of Diabetes No 0 Hx of Vascular Disease No 0 Total 0 Treatment Treatment ordered: NONE Initial Treatment Plan 1. Patient was admitted on a [9.39] status. 2. Complete history was obtained. 3. With patients permission, family will be contacted and database will be expanded. 4. Patients medication regimen will be reviewed and changed accordingly. 5. Patient will be provided with protected environment. 6. Patient will be treated with individual, group, and milieu therapies. 7. Patient will receive supportive psych-education. 8. Discharge planning will commence immediately. 9. Outpatient follow-up treatment will be strongly recommended. 10. The initial treatment plan will focus initially on: * Depression. * Risk for suicide. ESTIMATED LENGTH OF STAY: - DAYS. TIME SPENT COUNSELING AND COORDINATING INITIAL CARE: minutes. Ordered/Pending Vital Signs Vital Signs Date Time Temp Pulse Resp B/P (MAP) Pulse Ox O2 Delivery O2 Flow Rate FiO2 07/13/20 08:46 Room Air 07/13/20 06:25 99.7 110 20 105/67 (80) 96 Laboratory Data 24H Labs Laboratory Tests 2 07/12/20 13:41: Nucleated Red Blood Cells % (auto) 0.0, Anion Gap 11, Glomerular Filtration Rate > 60.0, Calcium Level 8.9, Total Bilirubin 0.6, Direct Bilirubin 0.2, Aspartate Amino Transf (AST/SGOT) 54H, Alanine Aminotransferase (ALT/SGPT) 37, Alkaline Phosphatase 87, Total Protein 7.8, Albumin 4.3, Albumin/Globulin Ratio 1.2, Thyroid Stimulating Hormone (TSH) 0.163L, Salicylates Level 6.9, Urine Opiates Screen NEGATIVE, Urine Methadone Screen NEGATIVE, Acetaminophen Level < 2.0L, Urine Barbiturates Screen NEGATIVE, Urine Phencyclidine Screen NEGATIVE, Urine Amphetamines Screen NEGATIVE, Urine Benzodiazepines Screen NEGATIVE, Urine Cocaine Metabolite Screen POSITIVEH, Urine Cannabinoids Screen NEGATIVE, Ethyl Alcohol Level 0.188H 07/12/20 15:18: Coronavirus (COVID-19)(PCR) NEGATIVE, Influenza Type A (RT-PCR) NEGATIVE, Influenza Type B (RT-PCR) NEGATIVE, Respiratory Syncytial Virus (PCR) NEGATIVE 3/20/21 21:30: POC Glucose (Misc Panel) 111H, POC Sodium (Misc Panel) 126L, POC Potassium (Misc Panel) 3.3L, POC Chloride (Misc Panel) 88L, POC Total CO2 (Misc Panel) 27.0, POC Blood Urea Nitrogen (Misc Panel < 3L, POC Ionized Calcium (Misc Panel) 4.3L, POC Creatinine (Misc Panel) 0.8, POC Hematocrit (Misc Panel) 42.0 CBC/BMP Laboratory Tests 07/12/20 13:41 Medications Scheduled Gabapentin (Gabapentin) 400 Mg Capsule, 400 MG PO TID, (Reported) Paliperidone (Paliperidone ER) 9 Mg Tab.er.24, 9 MG PO QHS, (Reported) Prazosin Hcl (Prazosin HCl) 2 Mg Capsule, 6 MG PO QHS, (Reported) Propranolol HCl (Propranolol HCl) 40 Mg Tablet, 40 MG PO BID, (Reported) Allergies Coded Allergies: No Known Allergies (Unverified , 05/12/20) NICOLE RIVERA MD Jul 13, 2020 11:47
[2020-07-13 16:13] VITALS: BP 113/78
[2020-07-13] MEDS: QUEtiapine FUMARATE 200 MG TAB PO SCH (21:19)
[2020-07-14 06:26] VITALS: BP 136/75
[2020-07-14] MEDS ORDERED: diphenhydrAMINE 50MG CAP PO STA (12:22)
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
[2020-07-14] MEDS: GABAPENTIN 100 MG CAP PO SCH ×2 (14:54→20:39)
[2020-07-14] MEDS: PROPRANOLOL 20 MG TAB PO SCH (14:54)
[2020-07-14] MEDS ORDERED: diphenhydrAMINE 25MG CAP PO ONE (15:45)
[2020-07-14 18:21] VITALS: BP 113/79
[2020-07-14] MEDS: PALIPERIDONE 3 MG ER TAB (INVEGA) PO SCH (20:37)
[2020-07-14] MEDS: QUEtiapine FUMARATE 200 MG TAB PO SCH (20:37)
[2020-07-14] MEDS: PRAZOSIN 1 MG CAP PO SCH (20:39)
[2020-07-14] MEDS: diphenhydrAMINE CREAM 30GM TOP PRN (22:17)
[2020-07-15 06:36] VITALS: BP 123/72
[2020-07-15] MEDS: PROPRANOLOL 20 MG TAB PO SCH (09:51)
[2020-07-15] MEDS: GABAPENTIN 100 MG CAP PO SCH ×2 (09:51→20:51)
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
[2020-07-15] MEDS: diphenhydrAMINE CREAM 30GM TOP PRN (17:52)
[2020-07-15] MEDS: PRAZOSIN 1 MG CAP PO SCH (20:50)
[2020-07-15] MEDS: QUEtiapine FUMARATE 200 MG TAB PO SCH (20:50)
[2020-07-15] MEDS: PALIPERIDONE 3 MG ER TAB (INVEGA) PO SCH (20:51)
[2020-07-16] MEDS: diphenhydrAMINE CREAM 30GM TOP PRN ×2 (02:27→20:47)
[2020-07-16 06:49] VITALS: BP 100/56
[2020-07-16] MEDS: GABAPENTIN 400MG CAP PO SCH ×2 (09:43→20:49)
[2020-07-16] MEDS: PROPRANOLOL 20 MG TAB PO SCH ×2 (09:44→20:48)
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
[2020-07-16 17:50] VITALS: BP 116/75
[2020-07-16] MEDS: PRAZOSIN 1 MG CAP PO SCH (20:48)
[2020-07-16] MEDS: PALIPERIDONE 6 MG ER TAB (INVEGA) PO SCH (20:49)
[2020-07-16] MEDS: QUEtiapine FUMARATE 200 MG TAB PO SCH (20:49)
[2020-07-17 06:51] VITALS: BP 116/62
[2020-07-17] MEDS: GABAPENTIN 400MG CAP PO SCH ×2 (09:00→20:58)
[2020-07-17] MEDS: PROPRANOLOL 20 MG TAB PO SCH ×2 (09:51→21:35)
--- NOTE | 2020-07-17 10:41 | IPNPDOC ---
Text Note Date of Service The patient was seen on 07/17/20. NOTE Subjective: Mr. Leigh asked to see me this morning from the medicine service because he had a concern over his hands yesterday. He tells me he noticed yesterday some redness over both hands and he thought it might be hives with tells me that today the rash completely resolved. Tells me yesterday he was not painful but it was a little itchy and that today the itching has gone away. Tells me he doesn't have a history of hives and doesn't have any other rashes elsewhere on his body. He denies associated fevers and no other associated symptoms. He tells me he feels well now and just wanted to get a physician's opinion. Objective: Constitutional: Awake and alert, in no apparent distress ENT: Sclera are clear. Musculoskeletal: Examination of his hands is fairly unremarkable. There is no erythema. There is no tenderness at his wrist. There is no swelling of his extremities. There are no wheals, no scratching, no signs of injury. Neurologic: No focal neurological deficit. Mental Status: A&O x3, normal affect Assessment/plan: I evaluated Mr. Leigh regarding concern of possible rash on his hands. At this time the rash seems to have resolved on its own. Advised patient to let me know if the rash recurs as for now we will only observe there is no need for medical treatment. James Calderon Hospitalist Stacey SARAVIA, I+O Stacey SARAVIA, I+O Vital Signs Date Time Temp Pulse Resp B/P (MAP) Pulse Ox O2 Delivery O2 Flow Rate FiO2 07/17/20 09:51 100 100/62 07/17/20 06:51 98.0 18 100 Room Air LEO CALDERON MD Jul 17, 2020 10:41
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
[2020-07-17 18:24] VITALS: BP 137/74
[2020-07-17] MEDS: diphenhydrAMINE CREAM 30GM TOP PRN (20:56)
[2020-07-17] MEDS: QUEtiapine FUMARATE 200 MG TAB PO SCH (20:58)
[2020-07-17] MEDS: PALIPERIDONE 6 MG ER TAB (INVEGA) PO SCH (20:58)
[2020-07-17] MEDS: PRAZOSIN 1 MG CAP PO SCH (21:00)
[2020-07-18 06:22] VITALS: BP 156/78
[2020-07-18 09:31] VITALS: BP 156/78
[2020-07-18] MEDS: GABAPENTIN 400MG CAP PO SCH (09:31)
[2020-07-18] MEDS: PROPRANOLOL 20 MG TAB PO SCH (09:31)
[2020-07-18] MEDS ORDERED: QUET200T2 PO (10:24)
[2020-07-18] MEDS ORDERED: PRAZ2CAP PO (10:24)
[2020-07-18] MEDS ORDERED: GABA-845 PO (10:24)
[2020-07-18] MEDS ORDERED: PALI1TAB4 PO (10:24)
[2020-07-18] MEDS ORDERED: PROP40TA62 PO (10:24)
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
== END 2020-07-18 13:30 | disposition home or self-care (01) | DRG 885 ==
LOC: M ED 13:13 → M PSY 22:30
PROVIDERS: ADMIT Psychiatry & Neurology Psychiatry; ATTEND Psychiatry & Neurology Psychiatry
DX: F20.9 Schizophrenia, unspecified (principal); F15.151 Other stimulant abuse with stimulant-induced psychotic disorder with hallucinations; Z20.822 Contact with and (suspected) exposure to COVID-19; Z79.899 Other long term (current) drug therapy; F10.10 Alcohol abuse, uncomplicated; Z91.19 Patient's noncompliance with other medical treatment and regimen; F43.10 Post-traumatic stress disorder, unspecified; F32.9 Major depressive disorder, single episode, unspecified; F41.9 Anxiety disorder, unspecified

== ENCOUNTER 2020-08-01 15:45 | Emergency (ER) | payer MEDICAID, OTHER ==
[~2020-08-01] VITALS: Ht 185.4 cm; Wt 74.5 kg
[~2020-08-01 15:45] MED LIST changes: +QUET200T2 PO
[2020-08-01 19:39] VITALS: BP 126/64
== END 2020-08-01 19:43 | disposition home or self-care (01) ==
LOC: M ED 15:45
DX: F10.229 Alcohol dependence with intoxication, unspecified (principal); Z79.899 Other long term (current) drug therapy; F17.210 Nicotine dependence, cigarettes, uncomplicated

== ENCOUNTER 2020-08-13 18:15 | Inpatient (IN) | payer MEDICARE, MEDICAID ==
[~2020-08-13] VITALS: Ht 185.4 cm; Wt 96.7 kg
[2020-08-13 21:09] LABS: HEMATOCRIT 39.6 % (42.0-52.0); HEMOGLOBIN 13.4 g/dl (13.5-17.5); MEAN CORPUSCULAR HEMOGLOBIN 29.3 pg (27.0-33.0); MEAN CORPUSCULAR HGB CONC 33.8 g/dl (32.0-36.5); MEAN CORPUSCULAR VOLUME 86.5 fl (80.0-96.0); PLATELET COUNT, AUTOMATED 240 10^3/uL (150-450); RED BLOOD COUNT 4.58 10^6/uL (4.30-6.10); WHITE BLOOD COUNT 8.1 10^3/uL (4.0-10.0)
[2020-08-13 21:37] LABS: AMPHETAMINES LEVEL URINE NEGATIVE (NEGATIVE); BARBITURATES URINE NEGATIVE (NEGATIVE); BENZODIAZEPINES URINE NEGATIVE (NEGATIVE); CANNABINOIDS URINE NEGATIVE (NEGATIVE); COCAINE METABOLITE URINE POSITIVE (NEGATIVE); METHADONE URINE NEGATIVE (NEGATIVE); OPIATES URINE NEGATIVE (NEGATIVE); PHENCYCLIDINE URINE NEGATIVE (NEGATIVE)
[2020-08-13 21:47] LABS: ACETAMINOPHEN LEVEL < 2.0 UG/ML (10.0-30.0); ALBUMIN 3.5 GM/DL (3.2-5.2); ALT/SGPT 14 U/L (12-78); BILIRUBIN,DIRECT < 0.1 MG/DL (0.0-0.2); BILIRUBIN,TOTAL 0.3 MG/DL (0.2-1.0); BLOOD UREA NITROGEN 2 MG/DL (7-18); CALCIUM LEVEL 8.5 MG/DL (8.5-10.1); CARBON DIOXIDE LEVEL 26 MEQ/L (21-32); CHLORIDE LEVEL 100 MEQ/L (98-107); CREATININE FOR GFR 0.73 MG/DL (0.70-1.30); ETHYL ALCOHOL (ETHANOL) 0.111 % (0.000-0.010); GLOMERULAR FILTRATION RATE > 60.0 (>60); GLUCOSE, FASTING 114 MG/DL (70-100); POTASSIUM SERUM 3.3 MEQ/L (3.5-5.1); SODIUM LEVEL 135 MEQ/L (136-145); THYROID STIMULATING HORMONE 0.125 uIU/ML (0.358-3.740); TOTAL PROTEIN 6.7 GM/DL (6.4-8.2)
[2020-08-13] MEDS ORDERED: OLANZapine ORAL DISINTEGRATING TAB 5MG PO PRN (23:40)
[2020-08-13] MEDS ORDERED: MOM 30ML SUSPENSION UDC PO PRN (23:40)
[2020-08-13] MEDS ORDERED: ACETAMINOPHEN TAB 650MG DOSE (2X325MG) PO PRN (23:40)
[2020-08-13] MEDS ORDERED: traZODone 50 MG TAB PO PRN (23:40)
[2020-08-13] MEDS ORDERED: MAALOX 30 ML SUSP *UDC PO PRN (23:40)
[2020-08-14] MEDS ORDERED: PALI1TAB4 PO (00:03)
[2020-08-14] MEDS ORDERED: GABA-845 PO (00:03)
[2020-08-14] MEDS ORDERED: PRAZ2CAP PO (00:03)
[2020-08-14] MEDS ORDERED: PROP40TA62 PO (00:03)
[2020-08-14 01:29] LABS: RSV AMPLIFICATION NEGATIVE (NEGATIVE)
[2020-08-14 02:47] VITALS: BP 121/88
[2020-08-14] MEDS: PROPRANOLOL 20 MG TAB PO SCH ×2 (09:00→21:30)
[2020-08-14] MEDS: GABAPENTIN 400MG CAP PO SCH ×3 (09:50→20:40)
[2020-08-14] MEDS: NICOTINE 21MG/24HR 1 EA TRANSDERMAL TD SCH (09:55)
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
[2020-08-14 18:51] VITALS: BP 114/66
[2020-08-14] MEDS: QUEtiapine FUMARATE 200 MG TAB PO SCH (20:40)
[2020-08-14] MEDS: PRAZOSIN 1 MG CAP PO SCH (20:40)
[2020-08-14] MEDS: PALIPERIDONE 3 MG ER TAB (INVEGA) PO SCH (20:40)
[2020-08-15 00:28] LABS: CHLAMYDIA DNA AMPLIFICATION NEGATIVE (NEGATIVE); GC DNA AMPLIFICATION NEGATIVE (NEGATIVE)
[2020-08-15] MEDS: PROPRANOLOL 20 MG TAB PO SCH ×2 (08:16→22:04)
[2020-08-15] MEDS: NICOTINE 21MG/24HR 1 EA TRANSDERMAL TD SCH (08:16)
[2020-08-15] MEDS: GABAPENTIN 400MG CAP PO SCH ×3 (08:16→22:04)
[2020-08-15 10:03] LABS: BLOOD UREA NITROGEN 15 MG/DL (7-18); CALCIUM LEVEL 9.1 MG/DL (8.5-10.1); CARBON DIOXIDE LEVEL 28 MEQ/L (21-32); CHLORIDE LEVEL 107 MEQ/L (98-107); GLOMERULAR FILTRATION RATE > 60.0 (>60); GLUCOSE, FASTING 148 MG/DL (70-100); SODIUM LEVEL 140 MEQ/L (136-145)
[2020-08-15 10:50] LABS: HIV 1&2 SCREEN CENTAUR NEGATIVE (NEGATIVE)
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
[2020-08-15 17:47] VITALS: BP 116/64
[2020-08-15] MEDS: PALIPERIDONE 3 MG ER TAB (INVEGA) PO SCH (22:04)
[2020-08-15] MEDS: QUEtiapine FUMARATE 200 MG TAB PO SCH (22:04)
[2020-08-15] MEDS: PRAZOSIN 1 MG CAP PO SCH (22:05)
[2020-08-16 06:47] VITALS: BP 140/69
[2020-08-16] MEDS: PROPRANOLOL 20 MG TAB PO SCH ×2 (09:49→22:29)
[2020-08-16] MEDS: NICOTINE 21MG/24HR 1 EA TRANSDERMAL TD SCH (09:49)
[2020-08-16] MEDS: GABAPENTIN 400MG CAP PO SCH ×3 (09:49→22:30)
--- NOTE | 2020-08-16 17:04 | MHIPN ---
[facility] PROGRESS NOTE DATE: 08/16/2020 SUBJECTIVE: The patient tells me today that he is doing good. He says he slept good. He is very flat, but he has no complaints. MENTAL STATUS EXAMINATION: This patient is alert and oriented times three. Eye contact is fair. Psychomotor activity is decreased. There is no formal thought disorder noted. He says his mood is good. Affect is flat. I did not elicit any psychotic symptoms, but he is very guarded and so it is kind of hard to tell. He denies suicidal or homicidal ideations. Concentration fair. Memory intact. Insight and judgment poor. DIAGNOSES: 1. Unspecified psychotic disorder. 2. Rule out stimulant-induced psychosis. 3. Schizophrenia. 4. Poor adherence to treatment. 5. Stimulant use disorder. 6. Alcohol use disorder. TREATMENT PLAN: At this point, we will continue to monitor the patient for any psychotic and any suicidal or homicidal thoughts and we will titrate the medication as indicated until stable.
[2020-08-16 18:00] VITALS: BP 138/90
[2020-08-16] MEDS: PRAZOSIN 1 MG CAP PO SCH (22:29)
[2020-08-16] MEDS: PALIPERIDONE 3 MG ER TAB (INVEGA) PO SCH (22:30)
[2020-08-16] MEDS: QUEtiapine FUMARATE 200 MG TAB PO SCH (22:30)
[2020-08-17 07:12] VITALS: BP 143/73
[2020-08-17] MEDS: GABAPENTIN 400MG CAP PO SCH ×3 (08:17→21:10)
[2020-08-17] MEDS: NICOTINE 21MG/24HR 1 EA TRANSDERMAL TD SCH (08:17)
[2020-08-17] MEDS: PROPRANOLOL 20 MG TAB PO SCH ×2 (08:17→21:11)
[2020-08-17 18:23] VITALS: BP 118/70
[2020-08-17] MEDS: QUEtiapine FUMARATE 200 MG TAB PO SCH (21:10)
[2020-08-17] MEDS: PRAZOSIN 1 MG CAP PO SCH (21:10)
[2020-08-17] MEDS: PALIPERIDONE 3 MG ER TAB (INVEGA) PO SCH (21:11)
[2020-08-18] MEDS: PROPRANOLOL 20 MG TAB PO SCH ×2 (09:00→20:54)
[2020-08-18] MEDS: GABAPENTIN 400MG CAP PO SCH ×3 (09:35→20:54)
[2020-08-18] MEDS: NICOTINE 21MG/24HR 1 EA TRANSDERMAL TD SCH (09:40)
--- NOTE | 2020-08-18 11:05 | MHIPN ---
[facility] PSYCHIATRIC PROGRESS NOTE DATE OF SERVICE: 08/17/2020 HISTORY OF PRESENT ILLNESS: The patient today tells me that he is doing good. He tells me "I just want to sleep." He is vague about how he is feeling. MENTAL STATUS EXAM: This patient is alert and oriented times 3. He is pleasant, cooperative, verbally spontaneous. Eye contact is fair. Psychomotor activity is decreased. There is no formal thought disorder noted. He says he is okay. Affect is flat. I am not eliciting any psychotic symptoms. He denies any suicidal or homicidal ideations. Concentration is fair. Insight and judgment is poor. DIAGNOSES: 1. Unspecified psychotic disorder. 2. Rule out stimulant induced psychosis. 3. Schizophrenia. 4. Poor adherence to treatment. 5. Stimulant use disorder. 6. Alcohol use disorder. TREATMENT PLAN: At this point we will continue to monitor the patient for psychotic symptoms or any suicidal or homicidal ideations and we will continue to titrate medications as indicated.
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
[2020-08-18] MEDS ORDERED: QUET200T2 PO (16:51)
[2020-08-18 18:50] VITALS: BP 129/76
[2020-08-18] MEDS: PRAZOSIN 1 MG CAP PO SCH (20:53)
[2020-08-18] MEDS: QUEtiapine FUMARATE 200 MG TAB PO SCH (20:54)
[2020-08-18] MEDS: PALIPERIDONE 3 MG ER TAB (INVEGA) PO SCH (20:54)
[2020-08-19 06:38] VITALS: BP 139/82
[2020-08-19] MEDS: NICOTINE 21MG/24HR 1 EA TRANSDERMAL TD SCH (08:44)
[2020-08-19] MEDS: GABAPENTIN 400MG CAP PO SCH (08:48)
[2020-08-19 08:49] VITALS: BP 90/58
[2020-08-19] MEDS: PROPRANOLOL 20 MG TAB PO SCH (08:49)
--- NOTE | 2020-08-19 11:01 | MHDSPDOC ---
[facility] Discharge Summary Discharge Summary DATE OF ADMISSION: Aug 13, 2020 at 18:16 DATE OF DISCHARGE: Aug 19, 2020 at 09:00 DISCHARGE DIAGNOSES: Unspecified Schizophrenia and Other Psychotic Disorders R/O stimulant induced psychosis Schizophrenia Poor adherence to treatment Stimulant Use Disorder Alcohol Use Disorder Tobacco Use Disorder PTSD per history Depression, per history Anxiety per history Cannabis Use Disorder per history REASON FOR ADMISSION: Patient is a 30 -year-old Single, Disabled, Domiciled, , male who was admitted on legal status to [facility]. Patient say he did not feel safe at home. He says he is depressed and stressed and having command hallucinations that he want to kill himself and others. Reports his grandmother 2 day ago and he is stressed about it. His [facility] girlfriend for the past 10 years) cheated on him and they broke up and he was having " bad thoughts and not feeling safe". He has not been taking his medication. He been using cocaine- last use 08/12/20. He has a long history of Schizophrenia and polysubstance abuse. He was discharged in June 2020. PER ER - Pt presents to ED stating he's suffering from command AH to kill himself and others. Pt has a long hx of Schizophrenia and Stimulant Induced Psychotic Disorder, Last admitted to [facility] June,. Patient states," I'm just going through a lot and I don't feel safe." Pt reports his Grandmother 2 days ago and has been having a difficult time coping. In addition to grieving, states his GF (for the past 10 years) cheated on him therefore their relationship has since been terminated. States he believes people are breaking into his apt and admits "having bad thoughts of killing stupid people." Pt denies command AH to TW, however informed Dr. Milton he was suffering from command AH to kill himself and others. CONSULTANTS INVOLVED: See Medical H + P by Hospitalist TREATMENT AND PROGRESS ON THE UNIT: Patient was admitted to the [facility] on a legal status he was afforded the following treatment modalities: 1) Individual Therapy 2) Group Therapy 3) Medication Management 4) Milieu Therapy 5) Safe Environment HOSPITAL COURSE: Patient is a 30 year old male who was admitted ton [facility] on legal status after verbalizing that he was having command hallucinations to kill himself and others. He said his grandmother recently and he discovered his girlfriend was cheating on him and they broke up. His baby was born a week ago. He was ruminative about his girlfriend cheating on him and the baby not being his but during the past admission, he was excited about the baby. He had also been using substances- Cocaine. His paranoia about his girlfriend cheating on him could be the result of his substance use. During this hospitalization, he mostly slept and stayed in his room. Was not engaged in group therapy. DISCHARGE ASSESSMENT: Patient is alert and oriented, pts dress is appropriate. Hygiene and grooming is well-kempt. Denies depression and anxiety. Denies suicidal and homicidal ideation, planning or intent. Denies and is not observed with david, psychotic symptoms of delusions, bizarre thinking, obsessions, paranoia, ruminations illogical thoughts, flight of ideas or having poor insight and judgement. Throughout his stay, provider attempted to discuss his polysubstance use and patient was always dismissive and refusing to engage in the topic. Refuses treatment for substance use. Attempted to discuss changes to medication and he was not open to any discussion about his medication. He is requesting to be discharged. He will be meeting with his pillowcase turner for transfer of his section 8 assistance to [place]. Patient has normal mentation, declines further hospitalization on a voluntary status and meets criteria for discharge today. MENTAL STATUS EXAMINATION ON DISCHARGE: Patient is a 30-year old male, who is was admitted after verbalizing command hallucinations telling him to kill himself and others. . Speech: Is fluid, conversant, normal rate, tone and volume Language skills are intact Thought processes including: linear and goal oriented Thought content: denies depression and anxiety. Denies suicidal/homicidal ideation, planning or intent. Abstract reasoning, and computation: fair Description of associations: denies, none observed Description of abnormal or psychotic thoughts: denies, none observed. Judgment: fair Insight: fair Orientation: alert and oriented to person, place, time and situation Recent and remote memory: intact Attention span and concentration: good Language: expansive Fund of knowledge: average Mood: Euthymic Mood Affect: reactive MEDICATIONS ON DISCHARGE: See Medication Reconciliation PLAN/FOLLOWUP ARRANGEMENTS: Follow up with [facility] The amount of time spent in the coordination of care for this patient was approximately 25 minutes. ETOH/Disorder Med Rx ETOH/DRUG DISORDER RX: Offrd @ d/c & pt refused (Patient is non compliant in treatment and was dismissive of needing any help with polysubstance use. ) Vital Signs/I&Os Vital Signs Date Time Temp Pulse Resp B/P (MAP) Pulse Ox O2 Delivery O2 Flow Rate FiO2 08/19/20 08:49 104 90/58 (69) 08/19/20 06:38 98.1 14 99 Room Air Medications Scheduled Gabapentin (Gabapentin) 400 Mg Capsule, 400 MG PO TID, (Reported) Paliperidone (Paliperidone ER) 9 Mg Tab.er.24, 9 MG PO QHS, (Reported) Prazosin Hcl (Prazosin HCl) 2 Mg Capsule, 6 MG PO QHS, (Reported) Propranolol HCl (Propranolol HCl) 40 Mg Tablet, 40 MG PO BID, (Reported) Quetiapine Fumarate (Quetiapine Fumarate) 200 Mg Tablet, 200 MG PO QHS for INsom kelsey, #7 Allergies Coded Allergies: No Known Allergies (Unverified , 05/12/20) SONNY MCBRIDE NP Aug 19, 2020 11:01
== END 2020-08-19 09:00 | disposition home or self-care (01) | DRG 885 ==
LOC: M ED 18:15 → M ED INP 18:16 → M PSY 08-14 02:43
PROVIDERS: ADMIT Psychiatry & Neurology Psychiatry; ATTEND Psychiatry & Neurology Psychiatry
DX: F20.9 Schizophrenia, unspecified (principal); F15.151 Other stimulant abuse with stimulant-induced psychotic disorder with hallucinations; F10.10 Alcohol abuse, uncomplicated; F17.200 Nicotine dependence, unspecified, uncomplicated; F43.10 Post-traumatic stress disorder, unspecified; F32.9 Major depressive disorder, single episode, unspecified; F41.9 Anxiety disorder, unspecified; F12.10 Cannabis abuse, uncomplicated; Z63.5 Disruption of family by separation and divorce; Z20.822 Contact with and (suspected) exposure to COVID-19; Z79.899 Other long term (current) drug therapy; Z91.14 Patient's other noncompliance with medication regimen; Z63.4 Disappearance and death of family member

== ENCOUNTER 2020-08-29 21:12 | Emergency (ER) | payer MEDICARE, MEDICAID ==
[~2020-08-29] VITALS: Ht 182.9 cm; Wt 96.7 kg
[~2020-08-29 21:12] MED LIST changes: +GABA-283 PO; -GABA-845 PO
[2020-08-29 22:05] LABS: HEMATOCRIT 37.1 % (42.0-52.0); HEMOGLOBIN 12.5 g/dl (13.5-17.5); MEAN CORPUSCULAR HEMOGLOBIN 29.1 pg (27.0-33.0); MEAN CORPUSCULAR HGB CONC 33.7 g/dl (32.0-36.5); MEAN CORPUSCULAR VOLUME 86.3 fl (80.0-96.0); PLATELET COUNT, AUTOMATED 366 10^3/uL (150-450); WHITE BLOOD COUNT 10.9 10^3/uL (4.0-10.0)
[2020-08-29 22:28] LABS: AMPHETAMINES LEVEL URINE NEGATIVE (NEGATIVE); BARBITURATES URINE NEGATIVE (NEGATIVE); BENZODIAZEPINES URINE NEGATIVE (NEGATIVE); CANNABINOIDS URINE NEGATIVE (NEGATIVE); COCAINE METABOLITE URINE POSITIVE (NEGATIVE); METHADONE URINE NEGATIVE (NEGATIVE); OPIATES URINE NEGATIVE (NEGATIVE); PHENCYCLIDINE URINE NEGATIVE (NEGATIVE)
[2020-08-29 22:41] LABS: ALT/SGPT 16 U/L (12-78); BLOOD UREA NITROGEN 5 MG/DL (7-18); CARBON DIOXIDE LEVEL 24 MEQ/L (21-32); CHLORIDE LEVEL 106 MEQ/L (98-107); GLOMERULAR FILTRATION RATE > 60.0 (>60); GLUCOSE, FASTING 90 MG/DL (70-100); POTASSIUM SERUM 3.6 MEQ/L (3.5-5.1); SODIUM LEVEL 137 MEQ/L (136-145)
[2020-08-29 22:42] LABS: ACETAMINOPHEN LEVEL < 2.0 UG/ML (10.0-30.0); ALBUMIN 3.9 GM/DL (3.2-5.2); BILIRUBIN,DIRECT 0.1 MG/DL (0.0-0.2); BILIRUBIN,TOTAL 0.2 MG/DL (0.2-1.0); ETHYL ALCOHOL (ETHANOL) 0.219 % (0.000-0.010); SALICYLATE LEVEL 5.3 MG/DL (5.0-30.0); THYROID STIMULATING HORMONE 0.197 uIU/ML (0.358-3.740); TOTAL PROTEIN 7.2 GM/DL (6.4-8.2)
[2020-08-29 22:48] VITALS: BP 141/87
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
[2020-08-30] MEDS ORDERED: METAL LOCK LOOP XX ONE (03:07)
== END 2020-08-30 10:18 | disposition home or self-care (01) ==
LOC: M ED 21:12
DX: F10.10 Alcohol abuse, uncomplicated (principal); Y90.1 Blood alcohol level of 20-39 mg/100 ml; F14.10 Cocaine abuse, uncomplicated; S00.81XA Abrasion of other part of head, initial encounter; S61.212A Laceration without foreign body of right middle finger without damage to nail, initial encounter; X58.XXXA Exposure to other specified factors, initial encounter; Y92.89 Other specified places as the place of occurrence of the external cause; F20.0 Paranoid schizophrenia; Z79.899 Other long term (current) drug therapy; F17.210 Nicotine dependence, cigarettes, uncomplicated

== ENCOUNTER 2020-09-13 12:13 | Emergency (ER) | payer MEDICARE, MEDICAID ==
[~2020-09-13] VITALS: Ht 185.4 cm; Wt 70.9 kg
[2020-09-13 12:14] VITALS: BP 128/84
[2020-09-13] MEDS ORDERED: cefTRIAXone 500MG VIAL (J0696 PER 250MG) IM ONE (12:55)
[2020-09-13] MEDS ORDERED: LIDOCAINE 1% SDV 5ML VIAL DILUENT ONE (12:55)
[2020-09-13] MEDS ORDERED: DOXY100C37 PO (12:58)
[2020-09-13 14:11] LABS: CHLAMYDIA DNA AMPLIFICATION NEGATIVE (NEGATIVE); GC DNA AMPLIFICATION NEGATIVE (NEGATIVE)
[2020-09-15 14:16] LABS: HEPATITIS B SURFACE ANTIBODY POSITIVE (POSITIVE); HEPATITIS B SURFACE ANTIGEN NEGATIVE (NEGATIVE)
== END 2020-09-13 13:24 | disposition home or self-care (01) ==
LOC: M ED 12:13
DX: Z11.3 Encounter for screening for infections with a predominantly sexual mode of transmission (principal); Z86.19 Personal history of other infectious and parasitic diseases; F17.200 Nicotine dependence, unspecified, uncomplicated; Z79.899 Other long term (current) drug therapy
CPT/HCPCS: 81001; 86706; 86780; 86803; 87340; 87661; 96372; 99283; J0696

== ENCOUNTER 2020-09-18 01:17 | Emergency (ER) | payer MEDICARE, MEDICAID ==
[~2020-09-18] VITALS: Ht 185.4 cm; Wt 73.0 kg
[~2020-09-18 01:17] MED LIST changes: +DOXY100C37 PO
[2020-09-18 07:30] VITALS: BP 133/87
[2020-09-18 08:13] LABS: CHLAMYDIA DNA AMPLIFICATION NEGATIVE (NEGATIVE); GC DNA AMPLIFICATION NEGATIVE (NEGATIVE)
--- NOTE | 2020-09-18 09:46 | ED PDOC ---
Post-Departure Follow-Up Called patient to tell him his STD testing was negative but there was no answer. DELFINA Del Real PA-C, PA-C September 18, 2020 09:46
== END 2020-09-18 07:37 | disposition home or self-care (01) ==
LOC: M ED 01:17
DX: Z11.3 Encounter for screening for infections with a predominantly sexual mode of transmission (principal); Z20.2 Contact with and (suspected) exposure to infections with a predominantly sexual mode of transmission; F20.0 Paranoid schizophrenia; I10 Essential (primary) hypertension; F17.200 Nicotine dependence, unspecified, uncomplicated; F19.11 Other psychoactive substance abuse, in remission; Z79.899 Other long term (current) drug therapy; Z86.19 Personal history of other infectious and parasitic diseases; Z98.890 Other specified postprocedural states

== ENCOUNTER 2020-09-24 13:51 | Emergency (ER) | payer MEDICARE, MEDICAID ==
[~2020-09-24] VITALS: Ht 185.4 cm; Wt 73.0 kg
[2020-09-24 14:31] LABS: HEMATOCRIT 39.7 % (42.0-52.0); HEMOGLOBIN 13.4 g/dl (13.5-17.5); MEAN CORPUSCULAR HEMOGLOBIN 29.1 pg (27.0-33.0); MEAN CORPUSCULAR HGB CONC 33.8 g/dl (32.0-36.5); MEAN CORPUSCULAR VOLUME 86.1 fl (80.0-96.0); PLATELET COUNT, AUTOMATED 307 10^3/uL (150-450); RED BLOOD COUNT 4.61 10^6/uL (4.30-6.10); WHITE BLOOD COUNT 5.6 10^3/uL (4.0-10.0)
[2020-09-24] MEDS ORDERED: LORazepam 2 MG TAB PO PRN (15:25)
[2020-09-24 15:34] LABS: AMPHETAMINES LEVEL URINE NEGATIVE (NEGATIVE); BARBITURATES URINE NEGATIVE (NEGATIVE); BENZODIAZEPINES URINE NEGATIVE (NEGATIVE); CANNABINOIDS URINE NEGATIVE (NEGATIVE); COCAINE METABOLITE URINE POSITIVE (NEGATIVE); METHADONE URINE NEGATIVE (NEGATIVE); OPIATES URINE NEGATIVE (NEGATIVE); PHENCYCLIDINE URINE NEGATIVE (NEGATIVE)
[2020-09-24 15:52] LABS: ACETAMINOPHEN LEVEL < 2.0 UG/ML (10.0-30.0); ALBUMIN 4.1 GM/DL (3.2-5.2); ALT/SGPT 16 U/L (12-78); BILIRUBIN,DIRECT 0.1 MG/DL (0.0-0.2); BILIRUBIN,TOTAL 0.4 MG/DL (0.2-1.0); BLOOD UREA NITROGEN 4 MG/DL (7-18); CALCIUM LEVEL 8.9 MG/DL (8.5-10.1); CARBON DIOXIDE LEVEL 24 MEQ/L (21-32); CHLORIDE LEVEL 101 MEQ/L (98-107); CPK CREATINE PHOSPHOKINASE 262 U/L (39-308); CREATININE FOR GFR 0.79 MG/DL (0.70-1.30); ETHYL ALCOHOL (ETHANOL) 0.161 % (0.000-0.010); GLOMERULAR FILTRATION RATE > 60.0 (>60); GLUCOSE, FASTING 94 MG/DL (70-100); SALICYLATE LEVEL 6.5 MG/DL (5.0-30.0); SODIUM LEVEL 134 MEQ/L (136-145); THYROID STIMULATING HORMONE 0.177 uIU/ML (0.358-3.740); TOTAL PROTEIN 7.6 GM/DL (6.4-8.2)
[2020-09-24] MEDS: THIAMINE 100 MG TAB PO SCH (16:45)
--- NOTE | 2020-09-24 21:01 | ECGEPIP ---
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
[2020-09-24] MEDS ORDERED: QUEtiapine FUMARATE 100 MG TAB PO ONE (22:05)
[2020-09-25] MEDS ORDERED: DOXY100C37 PO (00:37)
[2020-09-25 05:59] LABS: RSV AMPLIFICATION NEGATIVE (NEGATIVE)
[2020-09-25] MEDS ORDERED: MULTIVITAMINS/MINERALS THERAP 1 TAB PO SCH (09:00)
[2020-09-25] MEDS ORDERED: FOLIC ACID 1 MG TAB PO SCH (09:00)
[2020-09-25] MEDS: THIAMINE 100 MG TAB PO SCH (11:23)
[2020-09-25 12:36] VITALS: BP 110/72
== END 2020-09-25 12:42 ==
LOC: M ED 13:51
DX: Z04.6 Encounter for general psychiatric examination, requested by authority (principal); R45.851 Suicidal ideations; F20.9 Schizophrenia, unspecified; F19.11 Other psychoactive substance abuse, in remission; F17.200 Nicotine dependence, unspecified, uncomplicated; Z79.899 Other long term (current) drug therapy; Z81.8 Family history of other mental and behavioral disorders

== ENCOUNTER 2020-10-15 18:52 | Emergency (ER) | payer MEDICARE, MEDICAID ==
[~2020-10-15] VITALS: Ht 185.4 cm; Wt 72.4 kg
[~2020-10-15 18:52] MED LIST changes: -DOXY100C37 PO; +DOXY1CAP62 PO
[2020-10-15 22:14] LABS: CHLAMYDIA DNA AMPLIFICATION NEGATIVE (NEGATIVE); GC DNA AMPLIFICATION NEGATIVE (NEGATIVE)
[2020-10-15 22:34] VITALS: BP 122/78
== END 2020-10-15 22:36 | disposition home or self-care (01) ==
LOC: M ED 18:52
DX: Z11.3 Encounter for screening for infections with a predominantly sexual mode of transmission (principal); F19.11 Other psychoactive substance abuse, in remission; F41.9 Anxiety disorder, unspecified; F33.9 Major depressive disorder, recurrent, unspecified; F20.9 Schizophrenia, unspecified; F17.200 Nicotine dependence, unspecified, uncomplicated; Z79.899 Other long term (current) drug therapy

== ENCOUNTER 2020-11-06 02:50 | Emergency (ER) | payer MEDICARE, MEDICAID ==
[~2020-11-06] VITALS: Ht 185.4 cm; Wt 76.8 kg
[2020-11-06 02:51] VITALS: BP 121/87
== END 2020-11-06 04:58 | disposition left against medical advice (07) ==
LOC: M ED 02:50
DX: Z53.21 Procedure and treatment not carried out due to patient leaving prior to being seen by health care provider (principal)

== ENCOUNTER 2020-11-11 14:15 | Emergency (ER) | payer MEDICAID, MEDICARE ==
[~2020-11-11] VITALS: Ht 185.4 cm; Wt 75.0 kg
[2020-11-11 19:21] VITALS: BP 133/82
[2020-11-12 00:56] LABS: GC DNA AMPLIFICATION NEGATIVE (NEGATIVE)
== END 2020-11-11 19:30 | disposition home or self-care (01) ==
LOC: M ED 14:15
DX: L30.9 Dermatitis, unspecified (principal); Z20.2 Contact with and (suspected) exposure to infections with a predominantly sexual mode of transmission; Z79.899 Other long term (current) drug therapy; F17.210 Nicotine dependence, cigarettes, uncomplicated

== ENCOUNTER 2020-11-20 07:04 | Inpatient (IN) | payer MEDICARE ==
[~2020-11-20] VITALS: Ht 190.5 cm; Wt 77.5 kg
[2020-11-20] MEDS ORDERED: NS 1,000 ML IV ONE (07:10)
[2020-11-20 07:45] LABS: BASO # 0.1 10^3/uL (0.0-0.2); EOS # 0.2 10^3/uL (0.0-0.5); EOS % 3.7 % (0.0-3.0); HEMATOCRIT 35.8 % (42.0-52.0); HEMOGLOBIN 12.2 g/dl (13.5-17.5); LYMPH # 1.4 10^3/uL (1.5-5.0); LYMPH % 27.8 % (24.0-44.0); MEAN CORPUSCULAR HEMOGLOBIN 29.5 pg (27.0-33.0); MEAN CORPUSCULAR HGB CONC 34.1 g/dl (32.0-36.5); MEAN CORPUSCULAR VOLUME 86.5 fl (80.0-96.0); NEUTROPHILS # 2.5 10^3/uL (1.5-8.5); NEUTROPHILS % 48.3 % (36.0-66.0); PLATELET COUNT, AUTOMATED 161 10^3/uL (150-450); RED BLOOD COUNT 4.14 10^6/uL (4.30-6.10); WHITE BLOOD COUNT 5.1 10^3/uL (4.0-10.0)
--- NOTE | 2020-11-20 07:59 | ECGEPIP ---
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
[2020-11-20 08:15] LABS: ACETAMINOPHEN LEVEL < 2.0 UG/ML (10.0-30.0); ALBUMIN 3.5 GM/DL (3.2-5.2); ALT/SGPT 106 U/L (12-78); BILIRUBIN,DIRECT 0.3 MG/DL (0.0-0.2); BLOOD UREA NITROGEN 8 MG/DL (7-18); CALCIUM LEVEL 8.6 MG/DL (8.5-10.1); CARBON DIOXIDE LEVEL 28 MEQ/L (21-32); CHLORIDE LEVEL 100 MEQ/L (98-107); CPK CREATINE PHOSPHOKINASE 232 U/L (39-308); CREATININE FOR GFR 0.71 MG/DL (0.70-1.30); ETHYL ALCOHOL (ETHANOL) < 0.003 % (0.000-0.010); GLOMERULAR FILTRATION RATE > 60.0 (>60); GLUCOSE, FASTING 98 MG/DL (70-100); POTASSIUM SERUM 3.8 MEQ/L (3.5-5.1); SALICYLATE LEVEL 4.7 MG/DL (5.0-30.0); SODIUM LEVEL 136 MEQ/L (136-145); TOTAL PROTEIN 6.6 GM/DL (6.4-8.2)
[2020-11-20 09:54] LABS: AMPHETAMINES LEVEL URINE NEGATIVE (NEGATIVE); BARBITURATES URINE NEGATIVE (NEGATIVE); BENZODIAZEPINES URINE NEGATIVE (NEGATIVE); CANNABINOIDS URINE NEGATIVE (NEGATIVE); COCAINE METABOLITE URINE NEGATIVE (NEGATIVE); METHADONE URINE NEGATIVE (NEGATIVE); OPIATES URINE NEGATIVE (NEGATIVE); PHENCYCLIDINE URINE NEGATIVE (NEGATIVE)
[2020-11-20 13:32] LABS: ALBUMIN 3.4 GM/DL (3.2-5.2); BILIRUBIN,DIRECT 0.4 MG/DL (0.0-0.2); BILIRUBIN,TOTAL 1.5 MG/DL (0.2-1.0); TOTAL PROTEIN 6.2 GM/DL (6.4-8.2)
[2020-11-20] MEDS ORDERED: PALIPERIDONE 3 MG ER TAB (INVEGA) PO SCH (21:00)
[2020-11-20] MEDS ORDERED: PRAZOSIN 1 MG CAP PO SCH (21:00)
[2020-11-20] MEDS ORDERED: PROPRANOLOL 20 MG TAB PO ONE (22:00)
[2020-11-20] MEDS ORDERED: GABAPENTIN 400MG CAP PO ONE (22:00)
[2020-11-21] MEDS ORDERED: SERO1TAB2 PO (00:35)
[2020-11-21] MEDS ORDERED: HOME MED LIST COMPLETE! XX SCH (00:40)
[2020-11-21] MEDS: NICOTINE 21MG/24HR 1 EA TRANSDERMAL TD SCH (09:00)
[2020-11-21 12:22] LABS: RSV AMPLIFICATION NEGATIVE (NEGATIVE)
[2020-11-21] MEDS ORDERED: traZODone 50 MG TAB PO PRN (13:05)
[2020-11-21] MEDS ORDERED: IBUPROFEN 400MG TAB PO PRN (13:05)
[2020-11-21] MEDS ORDERED: MOM 30ML SUSPENSION UDC PO PRN (13:05)
[2020-11-21] MEDS: GABAPENTIN 400MG CAP PO SCH ×2 (16:13→20:23)
[2020-11-21 18:00] VITALS: BP 120/73
[2020-11-21] MEDS: QUEtiapine FUMARATE 100 MG TAB PO SCH (20:22)
[2020-11-21] MEDS: PALIPERIDONE 3 MG ER TAB (INVEGA) PO SCH (20:22)
[2020-11-21] MEDS: PRAZOSIN 1 MG CAP PO SCH (20:23)
[2020-11-21] MEDS: PROPRANOLOL 20 MG TAB PO SCH (22:36)
[2020-11-22 07:03] VITALS: BP 106/63
[2020-11-22] MEDS: GABAPENTIN 400MG CAP PO SCH ×3 (09:20→21:18)
[2020-11-22] MEDS: PROPRANOLOL 20 MG TAB PO SCH ×2 (09:21→21:21)
[2020-11-22] MEDS: NICOTINE 21MG/24HR 1 EA TRANSDERMAL TD SCH (09:21)
--- NOTE | 2020-11-22 13:05 | HPEPDOC ---
General Date of Admission Nov 21, 2020 at 13:04 Date of Service: Nov 22, 2020 Attending Physician: Josh Hancock MD Chief Complaint The patient is a 30-year-old male admitted with a reason for visit of Unspecified Psychotic Do. Source: Patient, Old records History of Present Illness Darion was brought to the hospital by the police after he called them himself. He reported to them that he was hearing voices that were telling him to kill himself. He has a history of schizophrenia with paranoia. It seems that he may have been taking extra Seroquel in order to try to calm down the auditory hallucinations. Home Medications Scheduled Gabapentin (Gabapentin) 400 Mg Capsule, 400 MG PO TID, (Reported) Paliperidone (Paliperidone ER) 9 Mg Tab.er.24, 9 MG PO QHS, (Reported) Prazosin Hcl (Prazosin HCl) 2 Mg Capsule, 6 MG PO QHS, (Reported) Propranolol HCl (Propranolol HCl) 40 Mg Tablet, 40 MG PO BID, (Reported) Quetiapine Fumarate (Seroquel) 300 Mg Tablet, 300 MG PO QHS, (Reported) Allergies Coded Allergies: No Known Allergies (Unverified , 05/12/20) Past Medical History Medical History He has a history of schizophrenia. He denies any nonpsychiatric medical history. Surgical History He denies any surgical history. Family History His father is alive with type 2 diabetes. His mother is alive with no known medical problems. He has four sisters all of whom are alive with no known medical problems. He has four daughters alive one of whom has mental health conc erns. He has two sons alive none of whom have any known medical problems. Social History * Smoker: current smoker, less than 1 pack/day (Ports he smokes about 4 cigarettes a day) Alcohol: heavy (He reports he drinks up to a sixpack daily, " but not every day") Drugs: denies A-FIB/CHADSVASC A-FIB History Current/History of A-Fib/PAF?: No Review of Systems Constitutional: Denies: Chills, Fever ENT: Denies: Head Aches, Ear Pain Skin: Denies: Rash, Lesions Pulmonary: Denies: Dyspnea, Cough Cardiovascular: Denies: Chest Pain, Palpitations Gastrointestinal: Denies: Nausea, Vomiting, Abdominal Pain, Diarrhea Genitourinary: Denies: Dysuria, Hematuria Endocrine: Denies: Heat Intolerance, Cold Intolerance Neurological: Denies: Change in speech, Confusion Physical Examination General Exam: Positive: Alert, Cooperative, No Acute Distress Eye Exam: Positive: PERRLA, Conjunctiva & lids normal, EOMI; Negative: Sclera icteric ENT Exam: Positive: Atraumatic, Mucous membr. moist/pink, Pharynx Normal Neck Exam: Positive: Supple; Negative: Lymphadenopathy Chest Exam: Positive: Clear to auscultation, Normal air movement Heart Exam: Positive: Rate Normal, Regular Rhythm, Normal S1, Normal S2; Negative: Murmurs Abdomen Exam: Positive: Normal bowel sounds, Soft; Negative: Tenderness Extremity Exam: Positive: Normal pulses; Negative: Clubbing, Edema Skin Exam: Positive: Nl turgor and temperature; Negative: Lesion Neuro Exam: Positive: Normal Gait, Normal Speech Vital Signs Vital Signs Date Time Temp Pulse Resp B/P (MAP) Pulse Ox O2 Delivery O2 Flow Rate FiO2 11/22/20 09:21 56 106/63 11/22/20 07:03 97.3 20 100 Room Air 11/20/20 12:15 2.0 Problems (1) Schizophrenic disorder Status: Acute Problem Text: Management through psychiatry. Plan / VTE VTE Prophylaxis Ordered?: No VTE Exclusion Mechanical Proph: Low Risk for VTE VTE Exclusion Pharmacological: At Low Risk for VTE Plan Disposition Per psychiatry please reconsult hospitalist as needed. Josh Hancock MD Nov 22, 2020 13:05
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
[2020-11-22] MEDS ORDERED: LORazepam 0.5 MG TAB PO ONE (16:35)
[2020-11-22] MEDS: PALIPERIDONE 3 MG ER TAB (INVEGA) PO SCH (21:18)
[2020-11-22] MEDS: QUEtiapine FUMARATE 100 MG TAB PO SCH (21:18)
[2020-11-22] MEDS: PRAZOSIN 1 MG CAP PO SCH (21:20)
[2020-11-23 06:51] VITALS: BP 119/90
[2020-11-23] MEDS: PROPRANOLOL 20 MG TAB PO SCH ×2 (08:07→21:37)
[2020-11-23] MEDS: GABAPENTIN 400MG CAP PO SCH ×3 (08:08→21:38)
[2020-11-23] MEDS: NICOTINE 21MG/24HR 1 EA TRANSDERMAL TD SCH (08:09)
[2020-11-23] MEDS: MAALOX 30 ML SUSP *UDC PO PRN (10:55)
--- NOTE | 2020-11-23 16:21 | MHIPNPDOC ---
[facility] Progress Note Progress Note DATE OF SERVICE: 11/23/20 HISTORY: Patient is a 30 -year-old , male, who, as per ED report: "Reason for Referral Pt contacted police stating he's suffering from AH, believes "people were coming to kill him." Pt has a long hx of Unspecified Schizophrenia, Stimulant Induced Psychosis, PTSD, and Polysubstance abuse. He appeared paranoid upon arrival... Chief Complaint pt states, "the voices were telling me people were coming after me." He admits being stressed and increasingly depressed after GF terminated their relationship a few days ago which is triggering his command to kill himself and others. Pt states, "I'm going to kill the people that are trying to kill me." States he was up all night last night due to the severity of the voices and ingested his last tablet of Seroquel with intent to fall asleep, not to kill himself. He denies SI currently. States he is no longer seeking tx at [facility], and is awaiting for an appt at [facility], therefore is not currently on medication, which is mostly likely triggering his decompensation. He continues to deny SI to , but apparently informed other staff he was feeling suicidal and homicidal, therefore is not safe for discharge at this time." VITAL SIGNS: See below. NEW TEST RESULTS: See below CURRENT MEDICATIONS: See below. MENTAL STATUS EXAMINATION: General Appearance: well groomed, appears stated age, hospital scubs/clothing Build: average Demeanor: average Eye Contact: average Activity: a little restless Behavior: cooperative Speech: clear, normal in r/t/v Mood: anxious Affect: less anxious today Thought Process: less circumstantial today Thought Content (Delusions): less paranoid Thought Content (Other): preoccupied Thought Content (Aggressive): none reported Perception (Hallucinations): none reported Perception (Other): none reported Cognition (Impairment of): none reported Cognition(Intelligence Est.): average Oriented: Awake, Oriented times three Insight: poor Judgment: Poor Psychosis: Associations Diagnoses 1. Unspecified psychotic disorder, r/o schizophrenia ASSESSMENT: He seems to be slowly improving, he continues to deny psychotic symptoms, he might be minimizing because he wants to be discharged tomorrow. He seems to be responding to medications. He was encouraged to stop drinking since he admits to having a problem with it. His LFT's were abnormal. Will order lipid profile because he is on narcoleptics and these cause weigh gain/cholesterol increase. MANAGEMENT PLAN: Will continue on same treatment plan, order lipid profile TIME SPENT: 15 minutes. Vital Signs Vital Signs Date Time Temp Pulse Resp B/P (MAP) Pulse Ox O2 Delivery O2 Flow Rate FiO2 11/23/20 08:07 101 127/68 11/23/20 06:51 98.5 20 98 Room Air 11/20/20 12:15 2.0 Current Medications Current Medications Medications (Trade) Dose Ordered Sig/Christie Route PRN Reason Start Time Stop Time Status Last Admin Dose Admin Al Hydrox/Mg Hydrox/Simethicone (Mylanta) 30 ml Q4HP PRN PO HEARTBURN/INDIGESTION 11/21/20 13:05 11/23/20 10:55 Gabapentin (Neurontin) 400 mg TID PO 11/21/20 16:00 11/23/20 08:08 Home Med (Med Rec Complete!) ASDIRECTED XX 11/21/20 00:40 11/21/20 00:40 DC Ibuprofen (Advil) 400 mg Q6HP PRN PO MODERATE PAIN (PS 5-7) 11/21/20 13:05 Magnesium Hydroxide (Milk Of Magnesia) 30 ml DAILYPRN PRN PO CONSTIPATION 11/21/20 13:05 Nicotine (Nicoderm Cq 21mg) 1 patch DAILY TD 11/21/20 09:00 11/23/20 08:09 Paliperidone (Invega) 9 mg QHS PO 11/20/20 21:00 11/21/20 13:12 DC 11/20/20 21:00 Paliperidone (Invega) 9 mg QHS PO 11/21/20 21:00 11/22/20 21:18 Prazosin HCl (Minipress) 6 mg QHS PO 11/20/20 21:00 11/21/20 13:12 DC 11/20/20 21:00 Prazosin HCl (Minipress) 6 mg QHS PO 11/21/20 21:00 11/22/20 21:20 Propranolol HCl (Inderal) 40 mg BID PO 11/21/20 21:00 11/23/20 08:07 Quetiapine Fumarate (SEROquel) 300 mg QHS PO 11/21/20 21:00 11/22/20 21:18 Trazodone HCl (Desyrel) 50 mg QHSP PRN PO INSOMNIA 11/21/20 13:05 11/23/20 02:57 Allergies Coded Allergies: No Known Allergies (Unverified , 05/12/20) PAUL GLEASON MD Nov 23, 2020 16:10
[2020-11-23 17:04] VITALS: BP 118/72
[2020-11-23] MEDS: QUEtiapine FUMARATE 100 MG TAB PO SCH (21:34)
[2020-11-23] MEDS: PRAZOSIN 1 MG CAP PO SCH (21:37)
[2020-11-23] MEDS: PALIPERIDONE 3 MG ER TAB (INVEGA) PO SCH (21:39)
[2020-11-24] MEDS: MAALOX 30 ML SUSP *UDC PO PRN (03:04)
[2020-11-24 06:01] VITALS: BP 122/63
[2020-11-24 08:13] VITALS: BP 113/77
[2020-11-24] MEDS: NICOTINE 21MG/24HR 1 EA TRANSDERMAL TD SCH (08:13)
[2020-11-24] MEDS: GABAPENTIN 400MG CAP PO SCH (08:13)
[2020-11-24] MEDS: PROPRANOLOL 20 MG TAB PO SCH (08:13)
[2020-11-24] MEDS ORDERED: PALI1TAB4 PO (08:35)
[2020-11-24] MEDS ORDERED: SERO1TAB2 PO (08:35)
[2020-11-24] MEDS ORDERED: GABA-283 PO (08:35)
--- NOTE | 2020-11-24 10:26 | MHDSPDOC ---
[facility] Discharge Summary Discharge Summary DATE OF ADMISSION: Nov 21, 2020 at 13:04 DATE OF DISCHARGE: November 24, 2020 DISCHARGE DIAGNOSES: 1.. Psychotic disorder NOS 2.. REASON FOR ADMISSION: 30-year-old male with long psychiatric history admitted due to complaint of increasing auditory hallucination and paranoid thoughts. Patient reports increasing symptoms after he had an argument with his girlfriend and broke up last week. Patient stated that he left his medications at his ex- girlfriend's place and could not get any medicine and was having increasing auditory hallucination and paranoid appear along with the vague suicidal and homicidal thoughts. Patient has long history of polysubstance abuse but claims that he has not used recently. CONSULTANTS INVOLVED: TREATMENT AND PROGRESS ON THE UNIT : He was started back on his outpatient medications of Invega 9 mg at bedtime Seroquel 300 mg at bedtime Inderal 40 mg twice a day Neurontin 400 mg 3 times a day and prazosin 60 mg at bedtime. He reported marked improvement with the medications and claims that he is not hearing voices anymore and is feeling safe and stable.. HOSPITAL COURSE: Patient is fully cooperated with his medications maintained good control and has no new complaint. He reports feeling much better and not as depressed anxious and stated that he feels safe to return home and continue follow-up with his outpatient treatment. He is in no acute distress denies any suicidal thoughts and requesting discharge. DISCHARGE ASSESSMENT: Stable and not suicidal MENTAL STATUS EXAMINATION ON DISCHARGE: Patient is a 30-year old male, who is in no acute distress. Speech is rational and coherent. Language skills are good. Thought processes including: Relevant. Thought content: Denies any hallucination or paranoia. Abstract reasoning, and computation: Fair. Description of associations: Organized. Description of abnormal or psychotic thoughts: Denies any hallucination or pa ranoid thoughts. Judgment: [Fair . Insight: Fair. Orientation to well oriented. Recent and remote memory: No impairment. Attention span and concentration:. Language:. Fund of knowledge:. Mood: Euthymic. Affect: Appropriate. MEDICATIONS ON DISCHARGE: -For. Invega 9 mg at bedtime -For. Seroquel 300 mg at bedtime -For. Neurontin 400 mg 3 times a day ordered for 7 days with 3 refills PLAN/FOLLOWUP ARRANGEMENTS: Continue his current outpatient. The amount of time spent in the coordination of care for this patient was approximately 30 minutes. ETOH/Disorder Med Rx ETOH/DRUG DISORDER RX: N/A Vital Signs/I&Os Vital Signs Date Time Temp Pulse Resp B/P (MAP) Pulse Ox O2 Delivery O2 Flow Rate FiO2 11/24/20 08:13 86 113/77 11/24/20 06:01 98.3 20 94 Room Air 11/20/20 12:15 2.0 Laboratory Data Labs 24H Laboratory Tests 2 11/24/20 07:08: Triglycerides Level 190H, Total Cholesterol 159, LDL Cholesterol 68, Non-HDL Cholesterol (LDL + VLDL) 106, Total HDL Cholesterol 53, Cholesterol/HDL Ratio 3.000 Medications Scheduled Gabapentin (Gabapentin) 400 Mg Capsule, 400 MG PO TID for mood for 7 Days, #21 Paliperidone (Paliperidone ER) 9 Mg Tab.er.24, 9 MG PO QHS for psychosis for 7 Days, #7 Prazosin Hcl (Prazosin HCl) 2 Mg Capsule, 6 MG PO QHS, (Reported) Propranolol HCl (Propranolol HCl) 40 Mg Tablet, 40 MG PO BID, (Reported) Quetiapine Fumarate (Seroquel) 300 Mg Tablet, 300 MG PO QHS for psychosis for 7 Days, #7 Allergies Coded Allergies: No Known Allergies (Unverified , 05/12/20) MORENO GRANDE M.D. Nov 24, 2020 10:26
== END 2020-11-24 13:09 | disposition home or self-care (01) | DRG 885 ==
LOC: M ED 07:04 → M ED INP 11-21 13:04 → M PSY 11-21 14:28
PROVIDERS: ADMIT Psychiatry & Neurology Psychiatry; ATTEND Psychiatry & Neurology Psychiatry
DX: F29 Unspecified psychosis not due to a substance or known physiological condition (principal); F17.210 Nicotine dependence, cigarettes, uncomplicated; Z20.822 Contact with and (suspected) exposure to COVID-19; Z79.899 Other long term (current) drug therapy; Z63.0 Problems in relationship with spouse or partner

== ENCOUNTER 2020-12-12 18:18 | Emergency (ER) | payer MEDICARE ==
[~2020-12-12] VITALS: Ht 185.4 cm; Wt 73.2 kg
[2020-12-12 18:18] VITALS: BP 128/80
[~2020-12-12 18:18] MED LIST changes: +SERO1TAB2 PO
== END 2020-12-12 19:43 | disposition left against medical advice (07) ==
LOC: M ED 18:18
DX: Z53.29 Procedure and treatment not carried out because of patient's decision for other reasons (principal)

== ENCOUNTER 2020-12-30 09:24 | Emergency (ER) | payer MEDICARE ==
[~2020-12-30] VITALS: Ht 185.4 cm; Wt 70.1 kg
[2020-12-30 10:55] LABS: HEMATOCRIT 41.7 % (42.0-52.0); HEMOGLOBIN 14.1 g/dl (13.5-17.5); MEAN CORPUSCULAR HEMOGLOBIN 29.5 pg (27.0-33.0); MEAN CORPUSCULAR HGB CONC 33.8 g/dl (32.0-36.5); MEAN CORPUSCULAR VOLUME 87.2 fl (80.0-96.0); PLATELET COUNT, AUTOMATED 262 10^3/uL (150-450); RED BLOOD COUNT 4.78 10^6/uL (4.30-6.10); WHITE BLOOD COUNT 4.9 10^3/uL (4.0-10.0)
[2020-12-30 11:26] LABS: ACETAMINOPHEN LEVEL < 2.0 UG/ML (10.0-30.0); ALBUMIN 3.8 GM/DL (3.2-5.2); ALT/SGPT 46 U/L (12-78); BILIRUBIN,DIRECT 0.1 MG/DL (0.0-0.2); BILIRUBIN,TOTAL 0.4 MG/DL (0.2-1.0); BLOOD UREA NITROGEN 4 MG/DL (7-18); CALCIUM LEVEL 8.7 MG/DL (8.5-10.1); CARBON DIOXIDE LEVEL 28 MEQ/L (21-32); CHLORIDE LEVEL 104 MEQ/L (98-107); CREATININE FOR GFR 0.75 MG/DL (0.70-1.30); ETHYL ALCOHOL (ETHANOL) 0.236 % (0.000-0.010); GLOMERULAR FILTRATION RATE > 60.0 (>60); GLUCOSE, FASTING 95 MG/DL (70-100); POTASSIUM SERUM 4.1 MEQ/L (3.5-5.1); SALICYLATE LEVEL 5.6 MG/DL (5.0-30.0); SODIUM LEVEL 138 MEQ/L (136-145); THYROID STIMULATING HORMONE 0.055 uIU/ML (0.358-3.740); TOTAL PROTEIN 7.4 GM/DL (6.4-8.2)
[2020-12-30 11:41] LABS: AMPHETAMINES LEVEL URINE NEGATIVE (NEGATIVE); BARBITURATES URINE NEGATIVE (NEGATIVE); BENZODIAZEPINES URINE NEGATIVE (NEGATIVE); CANNABINOIDS URINE NEGATIVE (NEGATIVE); COCAINE METABOLITE URINE POSITIVE (NEGATIVE); METHADONE URINE NEGATIVE (NEGATIVE); OPIATES URINE NEGATIVE (NEGATIVE); PHENCYCLIDINE URINE NEGATIVE (NEGATIVE)
[2020-12-30 18:38] VITALS: BP 106/65
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
== END 2020-12-30 20:18 | disposition home or self-care (01) ==
LOC: M ED 09:24
DX: F10.229 Alcohol dependence with intoxication, unspecified (principal); F20.9 Schizophrenia, unspecified; Z79.899 Other long term (current) drug therapy; F17.210 Nicotine dependence, cigarettes, uncomplicated

== ENCOUNTER 2021-02-22 14:19 | Emergency (ER) | payer MEDICARE ==
[~2021-02-22] VITALS: Ht 182.9 cm; Wt 76.4 kg
[~2021-02-22 14:19] MED LIST changes: +DOXY-443 PO; -DOXY1CAP62 PO
--- OUTSIDE RECORDS SUMMARY | 2021-02-22 14:24 | CCD | Summary of Care ---
Author Author [facility] Organization [facility] Address Unknown Phone Unavailable Care Team Providers Care Test Baker Name Role Phone System, Provider Not In PCP Unavailable Encounter Details Care Team Description Date Type Department 11/20/2020 [facility] TRANSFER CE NTER Encounter [address] [place] [address] Allergies No Known Active Allergiesdocumented as of this encounter (statuses as of 12/05/2020) Medications No known medicationsdocumented as of this encounter (statuses as of 12/05/2020) Active Problems Problem Noted Date Cannabis use disorder, severe, dependence 05/26/2015 Alcohol use disorder, moderate, dependence 6 Psychotic disorder 05/26/2015 Psychosis 05/24/2015 documented as of this encounter (statuses as of 12/05/2020) Social History Date Tobacco Use Types Packs/Day Years Used Current Every Day Smoker Cigarettes 0.125 10 Comments: 1/2 pk/day Comments Alcohol Use Standard Drinks/Week on days off from work No 0 (1 standard drink = 0.6 o z pure alcohol) Sex Assigned at Date Recorded Not on file Date Recorded COVID-19 Exposure Response 11/20/2020 5:24 PM EDT In the last month, have you been in contact with No / Unsure someone who was confirmed or suspected to have Coronavirus / COVID-19? documented as of this encounter Last Filed Vital Signs Not on filedocumented in this encounter Plan of Treatment Health Maintenance Due Date Last Done Comments MMR Vaccines (1 of - 1990 Standard series) Varicella Vaccines (1 of 1990 2 - 2-dose childhood series) DTaP,Tdap,and Td Vaccines 01/13/1996 (1 - Tdap) Influenza Vaccine 01/23/2021 Pneumococcal Vaccine: 65+ 2054 Years (1 of 1 - PPSV23) HIV Screening Completed 11/14/2012 HIB Vaccines Aged Out No longer eligible based on patient's age to complete this topic Hepatitis A Vaccines Aged Out No longer eligibl e based on patient's age to complete this topic Hepatitis B Vaccines Aged Out No longer eligibl e based on patient's age to complete this topic IPV Vaccines Aged Out No longer eligible based on patient's age to complete this topic Pneumococcal Vaccine: Aged Out No longer eligib le based on patient's age to Pediatrics (0 to 5 Years) complete this topic and At-Risk Patients (6 to 64 Years) documented as of this encounter Results Not on filedocumented in this encounter
--- OUTSIDE RECORDS SUMMARY | 2021-02-22 14:24 | CCD ---
Author Author [facility] Organization [facility] Address Unknown Phone Unavailable Care Team Providers Care Back Shoe Cutter Name Role Phone Katty Bhatti Unavailable PROBLEMS Type Condition ICD9-CM Code [id number] Code Onset Dates Condition S tatus W/U Status Risk SNOMED Code Notes Problem Prediabetes R73.03 Active confirmed 82683695 2 Problem Drug-induced erectile dysfunction N52.2 Active confirmed 810073722 Problem Abnormal laboratory test R89.9 Active confirmed 837851731 Problem Smoker F17.200 Active confirmed 73405914 Problem Other schizophrenia F20.89 Active confirmed 58187431 ALLERGIES No Known Allergies ENCOUNTERS from 1989 to 2020-12-03 Encounter Location Date Provider Diagnosis [address] [phone] [place] [address] Nov, Katty Davy IMMUNIZATIONS No Information SOCIAL HISTORY Tobacco Use: Social History Observation Description Date Details (start date - stop date) Current Smoker Sex Assigned At : Social History Observation Description Sex Assigned At Unknown Education: Question Answer Notes Level of Education: High School Language: Question Answer Notes Languages spoken: Mauritian some ukrainian Anabaptist: Question Answer Notes Anabaptist No latter day beliefs that would impact health care. Sexual Hx: Question Answer Notes Had sex in the last 12 months (vaginal, oral, or anal)? Yes Have you ever had an STD? Yes with Women only Use protection? No Chlamydia? Yes Alcohol Screening: Question Answer Notes Did you have a drink containing alcohol in the past year? Ye s Points 9 Interpretation Positive How often did you have six or more drinks on one occas ion in the past year? Daily or almost daily (4 points) How many drinks did you have on a typica l day when you were drinking in the past year? 5 or 6 (2 points) How often did you have a drink containing alcohol in t he past year? Two to three times per week (3 points) Tobacco Use: Question Answer Notes Are you a: current smoker Patient counseled on the dangers of tobacco use and urged to quit: 04/06/2017 How many cigarettes a day do you smoke? 5 or less Are you interested in quitting? Thinking about quitting Counseled the patient on smoking cessation, education provid ed 04/06/2017 REASON FOR REFERRAL No Information VITAL SIGNS No information MEDICATIONS Medication SIG (Take, Route, Frequency, Duration) Notes Start Da te End Date Status Gabapentin 400 MG TAKE ONE CAPSULE BY MOUTH TH REE TIMES A DAY MAXIMUM DAILY DOSE 3 CAPSULES Oral for 30 Active Nicotine Step 2 14 MG/24HR 1 patch to skin Transdermal Once a day for 30 day(s) Mar, Active Nicotine Step 1 21 MG/24HR 1 patch to skin Transdermal Once a day for 30 day(s) Jun, Active LORazepam 1 MG 1 tablet at bedtime as needed Orally Once a day Active QUEtiapine Fumarate 100 MG TAKE ONE TABLET BY MOUTH AT BEDTIME Oral for 30 Active Propranolol HCl 20 MG TAKE ONE TABLET BY MOUTH TWICE A DAY Oral for 3 0 Active Latuda 60 MG 1 tablet with food Orally Once a day Active ProAir HFA 108 (90 Base) MCG/ACT 2 puffs as needed Inh alation every 6 hrs for 30 Active Mirtazapine 45 MG TAKE ONE TABLET BY MOUTH AT BEDTIME Oral for 30 Active Prazosin HCl 2 MG TAKE TWO CAPSULES BY MOUTH AT BEDTIME Oral for 30 Active PROCEDURES No Information RESULTS No Results REASON FOR VISIT 3 N/S MEDICAL (GENERAL) HISTORY Type Description Date Medical History schizophrenia Surgical History No Surgical history information Hospitalization History Trauma 2012 Goals Section No Information Health Concerns No Information MEDICAL EQUIPMENT No Information MENTAL STATUS No Information FUNCTIONAL STATUS No Information ASSESSMENTS No Information PLAN OF TREATMENT Next Appt Details Provider Name:Dorothy Roman, 12-09 03:30:00 PM, [address] [facility], , [place], [address], Insurance Providers Payer Name Payer Address Payer Phone Insured Name Patient Relati onship to Insured Coverage Start Date Coverage End Date [employer] [address] [place] [phone] Robert LEIGH self
--- OUTSIDE RECORDS SUMMARY | 2021-02-22 14:24 | CCD ---
Author Author Darion Swain Organization Unknown Address [address] [address] Phone Care Team Providers Care Armored Car Messenger Name Role Phone Wiliam, Leif PCP Chief Complaint and Reason for Visit Chief Complaint Allergies, Adverse Reactions, Alerts No Data in Section Problem List Concept Problem Description Status Start Date Created Date Resolv ed Date Snomed Code F20.0 Paranoid schizophrenia Active 02/18/2021 Medications Rx Norm Medication Route Route Concept Start Date Stop Date Dosage Ryder quency Duration Formula Strength Dosage Form Dosage Form Code Dosage Description Medication Id Account Npid Author First Name Author Last Name Taxonomy Code Taxonomy Desc Phone Number [phone] gabapentin by mouth [id number] 11/21/2019 three times a day 400 mg capsule 24674 [phone] Jose Skinner [id number] Nurse P ractitioner [phone] [id number] prazosin by mouth V03430 11/21/2019 at bedtime 2 mg capsul e 87975 235859 [phone] Jose Skinner [id number] Nurse Practitioner [phone] [id number] propranolol by mouth I66537 04/10/2020 twice a day 40 mg t ablet 19662 [phone] Jose Skinner [id number] Nurse Practitioner [id number] Social History Social History Element Description Concept Effective Date Smoking Status Unknown if ever smoked [id number] Immunizations No Data in Section Vital Signs No Data in Section Procedures Date Concept Id Description Targeted Site Concept Targeted Site Concept Type 02/18/2021 68150 Extended Individual Psychotherapy - 45 min CPT Patient has no history of implantable de vices Encounters Encounter Start Date End Date Encounter Type Description Diagnosis Di agnosis Desc Location Author First Name Author Last Name Npid Taxonomy Cod e Taxonomy Desc Phone Number Location Addr1 Location Addr2 Location City Location [facility] [id number] 02/18/2021 02/18/2021 97319 Extended Individual Psych otherapy - 45 min F20.0 Paranoid schizophrenia [facility] Wiliam Yadav [phone] [id number] 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
--- OUTSIDE RECORDS SUMMARY | 2021-02-22 14:24 | CCD ---
Author Author Darion Tariq Oneida Organization Unknown Address [address] [address] Phone Care Team Providers Care Critical Care Cns Name Role Phone Oneida Tariq PCP Allergies, Adverse Reactions, Alerts No Data in Section Problem List Concept Problem Description Status Start Date Created Date Resolv ed Date Snomed Code F20.0 Paranoid schizophrenia Active 02/19/2021 Medications Rx Norm Medication Route Route Concept Start Date Stop Date Dosage Ryder quency Duration Formula Strength Dosage Form Dosage Form Code Dosage Description Medication Id Account Npid Author First Name Author Last Name Taxonomy Code Taxonomy Desc Phone Number [id number] gabapentin by mouth V49930 11/21/2019 three times a day 400 mg capsule 18681 [phone] Jose Skinner [id number] Nurse P ractitioner [phone] prazosin by mouth Y81063 11/21/2019 at bedtime 2 mg capsul e 75960 315318 [id number] Jose Skinner [id number] Nurse Practitioner [phone] 921911 propranolol by mouth O82913 04/10/2020 twice a day 40 mg t ablet 99715 433218 [id number] Jose Skinner [id number] Nurse Practitioner [phone] Social History Social History Element Description Concept Effective Date Smoking Status Unknown if ever smoked [id number] 39793791 Immunizations No Data in Section Vital Signs Encounter Date Height Ins Weight Lbs Bmi Bp Systolic Bp Diastoli c Oxygen Saturation Respiration Rate Pulse Rate Body Temp Head Circumference Heigh t Lying 02/18/2021 72.00 155.00 21.02 121 82 0.00 16 84 0.00 0.0 0. 00 Procedures Date Concept Id Description Targeted Site Concept Targeted Site Concept Type 02/18/2021 84483 Health Monitoring - 15 Min CPT Patient has no history of implantable de vices Encounters Encounter Start Date End Date Encounter Type Description Diagnosis Di agnosis Desc Location Author First Name Author Last Name Npid Taxonomy Cod e Taxonomy Desc Phone Number Location Addr1 Location Addr2 Location [facility] Location [place] Location Zip [id number] 02/18/2021 02/18/2021 60117 Health Monitoring - 15 Min F 20.0 Paranoid schizophrenia [facility] Chandni Mohamud [phone] [id number] Licensed Practical Nurse [phone] [address] [address] Plan of Treatment No Data in Section Lab Results No Data in Section Instructions No Data in Section Functional Cognitive Status No Data in Section Insurance Providers Insurance Id Policy Effective Date Policy Thru Date Company N christen [id number] 2018 Dual Complete Me dicare Community Plan [id number] 2018 MEDICAID
--- OUTSIDE RECORDS SUMMARY | 2021-02-22 14:24 | CCD ---
Author Author [facility] Organization [facility] Address Unknown Phone Unavailable Care Team Providers Care Horticultural Specialty Grower Inside Name Role Phone Dorothy Roman Unavailable PROBLEMS Type Condition ICD9-CM Code [id number] Code Onset Dates Condition S tatus W/U Status Risk SNOMED Code Notes Problem Prediabetes R73.03 Active confirmed 24003185 2 Problem Drug-induced erectile dysfunction N52.2 Active confirmed 324999120 Problem Abnormal laboratory test R89.9 Active confirmed 342377263 Problem Smoker F17.200 Active confirmed 23287981 Problem Other schizophrenia F20.89 Active confirmed 18327688 ALLERGIES No Known Allergies ENCOUNTERS from 1989 to 2021-02-20 Encounter Location Date Provider Diagnosis [address] [phone] [place] [address] Jan, Dorothy Roman IMMUNIZATIONS No Information SOCIAL HISTORY Tobacco Use: Social History Observation Description Date Details (start date - stop date) Current Smoker Sex Assigned At : Social History Observation Description Sex Assigned At Unknown Education: Question Answer Notes Level of Education: High School Language: Question Answer Notes Languages spoken: Hungarian some amharic Tenriism: Question Answer Notes Tenriism No jainism beliefs that would impact health care. Sexual [...] Notes Start Da te End Date Status ProAir HFA 108 (90 Base) MCG/ACT 2 puffs as needed Inh alation every 6 hrs for 30 Active Nicotine Step 2 14 MG/24HR 1 patch to skin Transdermal Once a day for 30 day(s) Mar, Active Nicotine Step 1 21 MG/24HR 1 patch to skin Transdermal Once a day for 30 day(s) Jun, Active Mirtazapine 45 MG TAKE ONE TABLET BY MOUTH AT BEDTIME Oral for 30 Active Latuda 60 MG 1 tablet with food Orally Once a day Active LORazepam 1 MG 1 tablet at bedtime as needed Orally Once a day Active Prazosin HCl 2 MG TAKE TWO CAPSULES BY MOUTH A T BEDTIME Oral Once a day for 10 day(s) Active Propranolol HCl 20 MG TAKE ONE TABLET BY MOUTH TWI CE A DAY Oral Twice a day for 10 days Active Gabapentin 400 MG TAKE ONE CAPSULE BY MOUTH TH REE TIMES A DAY MAXIMUM DAILY DOSE 3 CAPSULES Oral tid for 10 day(s) Active QUEtiapine Fumarate 100 MG TAKE ONE TABLET BY MOUTH AT BEDTIME Oral for 30 Active PROCEDURES No Information RESULTS No Results REASON FOR VISIT scripts MEDICAL (GENERAL) HISTORY Type Description Date Medical History schizophrenia Surgical History No Surgical history information Hospitalization History Trauma 2012 Goals Section No Information Health Concerns No Information MEDICAL EQUIPMENT No Information MENTAL STATUS No Information FUNCTIONAL STATUS No Information ASSESSMENTS No Information PLAN OF TREATMENT Medication Medication Name Sig Start Date Stop Date Prazosin HCl 2 MG TAKE TWO CAPSULES BY MOUTH A T BEDTIME Oral Once a day for 10 day(s) Propranolol HCl 20 MG TAKE ONE TABLET BY MOUTH TWI CE A DAY Oral Twice a day for 10 days Gabapentin 400 MG TAKE ONE CAPSULE BY MOUTH TH REE TIMES A DAY MAXIMUM DAILY DOSE 3 CAPSULES Oral tid for 10 day(s) Next Appt Details Provider Name:Dorothy Roman, 2020-04 10:15:00 AM, [address] [facility], , [place], [address], Insurance Providers Payer Name Payer Address Payer Phone Insured Name Patient Relati onship to Insured Coverage Start Date Coverage End Date [facility] [address] [facility] [address] Robert LEIGH self
--- OUTSIDE RECORDS SUMMARY | 2021-02-22 14:24 | CCD ---
Author Author Darion Tariq Oneida Organization Unknown Address [address] [address] Phone Care Team Providers Care Dye Winch Operator Name Role Phone Oneida Tariq PCP Allergies, [...] Name Taxonomy Code Taxonomy Desc Phone Number [id number] gabapentin by mouth [id number] 11/21/2019 three times a day 400 mg capsule 56410 [phone] Jose Skinner [id number] Nurse P ractitioner [phone] [id number] prazosin by mouth E94289 11/21/2019 at bedtime 2 mg capsul e 16558 593746 [id number] Jose Skinner [id number] Nurse Practitioner [phone] 895188 propranolol by mouth T11756 04/10/2020 twice a day 40 mg t ablet 60084 083682 [phone] Jose Skinner [id number] Nurse Practitioner [phone] Social History Social History Element Description Concept Effective Date Smoking Status Unknown if ever smoked [id number] Immunizations No Data in Section Vital Signs Encounter Date Height Ins Weight Lbs Bmi Bp Systolic Bp Diastoli c Oxygen Saturation Respiration Rate Pulse Rate Body Temp Head Circumference Heigh t Lying 02/18/2021 72.00 155.00 21.02 121 82 0.00 16 84 0.00 0.0 0. 00 Procedures Date Concept Id Description Targeted Site Concept Targeted Site Concept Type 02/18/2021 61315 Health Monitoring - 15 Min CPT Patient has no history of implantable de vices Encounters Encounter Start Date End Date Encounter Type Description Diagnosis Di agnosis Desc Location Author First Name Author Last Name Npid Taxonomy Cod e Taxonomy Desc Phone Number Location Addr1 Location Addr2 Location [facility] Location Sta Location Zip [id number] 02/18/2021 02/18/2021 17743 Health Monitoring - 15 Min F 20.0 Paranoid schizophrenia [facility] Chandni Mohamud [phone] [id number] Licensed Practical Nurse [phone] [address] [address] Plan of Treatment No Data in Section Lab Results No Data in Section Instructions No Data in Section Functional Cognitive Status No Data in Section Insurance Providers Insurance Id Policy Effective Date Policy Thru Date Company N christen [id number] 2018 Dual Complete Me dicare Community Plan [id number] 2018 MEDICAID
--- OUTSIDE RECORDS SUMMARY | 2021-02-22 14:25 | CCD ---
Author Author [facility] Organization [facility] Address Unknown Phone Unavailable Care Team Providers Care Resource Program Teacher Name Role Phone SYSTEM IN, NOT IN PROVIDER Unavailable Unavailable LaBarge, Joni Unavailable TODD URIOSTEGUI MD Unavailable Unavailable TODD URIOSTEGUI MD Unavailable Unavailable TODD URIOSTEGUI MD Unavailable Unavailable TODD URIOSTEGUI MD Unavailable Unavailable TODD URIOSTEGUI MD Unavailable Unavailable TODD URIOSTEGUI MD Unavailable Unavailable TODD URIOSTEGUI MD Unavailable Unavailable TODD URIOSTEGUI MD Unavailable Unavailable TODD URIOSTEGUI MD Unavailable Unavailable TODD URIOSTEGUI MD Unavailable Unavailable Marta Chicas Unavailable Leif Swain Unavailable Unavailable Dumont, K Tre MD Unavailable Unavailable Dumont, K Tre MD Unavailable Unavailable Dumont, K Tre MD Unavailable Unavailable Dumont, K Tre MD Unavailable Unavailable Dumont, K Tre MD Unavailable Unavailable Dumont, K Tre MD Unavailable Unavailable Dumont, K Tre MD Unavailable Unavailable Dumont, K Tre MD Unavailable Unavailable Dumont, K Tre MD Unavailable Unavailable Dumont, K Tre MD Unavailable Unavailable Dumont, K Tre MD Unavailable Unavailable Dumont, K Tre MD Unavailable Unavailable Dumont, K Tre MD Unavailable Unavailable Dumont, K Tre MD Unavailable Unavailable Dumont, K Tre MD Unavailable Unavailable Dumont, K Tre MD Unavailable Unavailable Dumont, K Tre MD Unavailable Unavailable BRANDON, DIDIER MD Unavailable Unavailable BRANDON, DIDIER MD Unavailable Unavailable BRANDON, DIDIER MD Unavailable Unavailable BRANDON, DIDIER MD Unavailable Unavailable BRANDON, DIDIER MD Unavailable Unavailable BRANDON, DIDIER MD Unavailable Unavailable BRANDON, DIDIER MD Unavailable Unavailable BRANDON, DIDIER MD Unavailable Unavailable BRANDON, DIDIER MD Unavailable Unavailable BRANDON, DIDIER MD Unavailable Unavailable BRANDON, DIDIER MD Unavailable Unavailable BRANDON, DIDIER MD Unavailable Unavailable BRANDON, DIDIER MD Unavailable Unavailable BRANDON, DIDIER MD Unavailable Unavailable BRANDON, DIDIER MD Unavailable Unavailable BRANDON, DIDIER MD Unavailable Unavailable BRANDON, DIDIER MD Unavailable Unavailable BRANDON, DIDIER MD Unavailable Unavailable BRANDON, DIDIER MD Unavailable Unavailable BRANDON, DIDIER MD Unavailable Unavailable BRANDON, DIDIER MD Unavailable Unavailable BRANDON, DIDIER MD Unavailable Unavailable BRANDON, DIDIER MD Unavailable Unavailable BRANDON, DIDIER MD Unavailable Unavailable BRANDON, DIDIER MD Unavailable Unavailable Greenfield, K Daniela [employer] RELIEF WORKER Unavailable Unavailable Michelle, K Daniela [employer]LL RELIEF WORKER Unavailable Unavailable Greenfield, K Daniela [employer]LL RELIEF WORKER Unavailable Unavailable Michelle, K Daniela [employer]LL RELIEF WORKER Unavailable Unavailable Greenfield, K Daniela [employer]LL RELIEF WORKER Unavailable Unavailable [place]field, K Daniela PM[employer]LL RELIEF WORKER Unavailable Unavailable Greenfield, K Daniela [employer]LL RELIEF WORKER Unavailable Unavailable [place], K Daniela [employer]LL RELIEF WORKER Unavailable Unavailable Federica OCONNELL MD Unavailable Unavailable Federica OCONNELL MD Unavailable Unavailable Oneida Tariq Unavailable Unavailable Re-disclosure Warning The records that you [...] is protected by Article 27-F of the [facility] Public Health law. If you continue you may have access to information: Regarding HIV / AIDS; Provided by facilities licensed or operated by the [facility] Office of Mental Health; or Provided by the [facility] Office for People With Developmental Disabilities. If such information is present, then the following [facility] mandated warning applies: This information has [...] law may result in a fine or care home sentence or both. A general authorization for the release of medical or other information is NOT sufficient authorization for further disc losure. Allergies and Adverse Reactions Type Description Substance Reaction Status Data Source(s ) Propensity to adverse reactions NO KNOWN ALLERGIES NO KNOWN ALLERGIES [facility] Propensity to adverse reactions NO ALLERGIES ON FILE NO ALLERGIES ON FILE [facility] Propensity to adverse reactions NO KNOWN ALLERGIES NO KNOWN ALLERGIES [facility] Encounters Encounter Providers Location Date Indications Data Source(s ) Unknown [id number] [facility] [address] 02/20/2021 12:00:00 AM EDT eCW1 ([facility]) Extended Individual Psychotherapy - 45 min Attender: Juli Wyman [facility] 02/18/2021 02:00:00 AM EDT - 02/18/2021 02:00:00 AM EDT [facility] ([facility]) Health Monitoring - 15 Min Attender: Oneidaelena Tariq [facility] 02/18/2021 01:30:00 AM EDT - 02/18/2021 01:30:00 AM EDT [facility] ([facility]) Attender: Oneida Tariq 02/18/2021 12:00:00 AM EDT [facility] ([facility]) Attender: Leif Swain 02/18/2021 12:00:00 AM E DT [facility] ([facility]) Unknown [id number] [facility] [address] 11/24/2020 12:00:00 AM EDT eCW1 ([facility]) Outpatient Referrer: PROVIDER SYSTEM IN 11/20/2020 05:41:[address] [facility] Brief Individual Psychotherapy - 30 min [facility] 04:00:00 AM EDT - 10/31/2020 04:00:00 AM EDT [facility] ([facility]) Attender: Joni Gonzalez 10/31/2020 12:00:00 AM EDT [facility] ([facility]) Outpatient Attender: Daniela Martinez PM-[employer]LL RELIEF WORKER [facility] 10/16/2020 03:30:00 AM EDT - 10/16/2020 03:30:00 AM EDT [facility] ([facility]) Attender: Daniela MASSEY-SAWMILL RELIEF WORKER 10/16/2020 12: 00:00 AM EDT [facility] ([facility]) IP PSYCH Attender: Tre Dumont MDAt tender: DIDIER TAYLOR MDAdmitter: DIDIER TAYLOR MDConsultant: TODD URIOSTEGUI MD 2E-2A 09/25/2020 02:40:00 PM EDT - 09/29/2020 05:38:00 PM EDT [facility] Patient discharged. Outpatient Referrer: VICTORINA OCONNELL MD 09/25/2020 04:4 5:00 AM EDT unspecified psychotic disorder [facility] unspecified psychotic disorder Outpatient Attender: Daniela BARBOSA [facility] 09/09/2020 01:00:00 AM EDT - 09/09/2020 01:00:00 AM EDT [facility] ([facility]) Attender: Daniela BARBOSA 09/09/2020 12: 00:00 AM EDT [facility] ([facility]) Extended Individual Psychotherapy - 45 min [facility] 03:15:00 AM EDT - 09/03/2020 03:15:00 AM EDT [facility] ([facility]) Attender: Joni Gonzalez 09/03/2020 12:00:00 AM EDT [facility] ([facility]) Brief Individual Psychotherapy - 30 min Attender: Joni valentin [facility] 08/20/2020 02:30:00 AM EDT - 08/20/2020 02:30:00 AM EDT [facility] ([facility]) Attender: Joni Gonzalez 08/20/2020 12:00:00 AM EDT [facility] ([facility]) Outpatient Attender: Daniela BARBOSA [facility] 08/07/2020 03:00:00 AM EDT - 08/07/2020 03:00:00 AM EDT [facility] ([facility]) Attender: Daniela BARBOSA 08/07/2020 12: 00:00 AM EDT [facility] ([facility]) Extended Individual Psychotherapy - 45 min Attender: Therese carrillo Lisa [facility] 07/24/2020 03:45:00 AM EDT - 07/24/2020 03:45:00 AM EDT [facility] ([facility]) Attender: Joni Gonzalez 07/24/2020 12:00:00 AM EDT [facility] ([facility]) Extended Individual Psychotherapy - 45 min Att[facility]: [facility]16/[facility] 01:15:00 AM EDT - 07/16/2020 01:15:00 AM EDT [facility] ([facility]) Attender: Joni Gonzalez 07/16/2020 12:00:00 AM EDT [facility] ([facility]) Outpatient Attender: Daniela BARBOSA [facility] 07/10/2020 03:30:00 AM EDT - 07/10/2020 03:30:00 AM EDT [facility] ([facility]) Attender: Daniela BARBOSA 07/10/2020 12: 00:00 AM EDT [facility] ([facility]) [place] [id number] [facility] [address] 07/02/2020 12:00:00 AM EST eCW1 ([facility]) Extended Individual Psychotherapy - 45 min Attender: Therese carrillo Lisa [facility] 06/24/2020 02:30:00 AM EST - 06/24/2020 02:30:00 AM EST [facility] ([facility]) Attender: Joni Gonzalez 06/24/2020 12:00:00 AM EST [facility] ([facility]) Outpatient Attender: Daniela BARBOSA [facility] 06/16/2020 03:30:00 AM EST - 06/16/2020 03:30:00 AM EST [facility] ([facility]) Attender: Daniela BARBOSA 06/16/2020 12: 00:00 AM EST [facility] ([facility]) TEMP- Non-Physician Phone - 11-20 Mins Attender: Joni oneil [facility] 06/11/2020 03:00:00 AM EST - 06/11/2020 03:00:00 AM EST [facility] ([facility]) Attender: Joni Gonzalez 06/11/2020 12:00:00 AM EST [facility] ([facility]) [place] [id number] [facility] [address] 05/29/2020 12:00:00 AM EST eCW1 ([facility]) Outpatient Attender: Daniela MASSEY-[employer]WMILL RELIEF WORKER [facility] 05/28/2020 10:00:00 AM EST - 05/28/2020 10:00:00 AM EST [facility] ([facility]) Attender: Daniela MASSEYAMAYA 05/28/2020 12: 00:00 AM EST [facility] ([facility]) TEMPMHCTelemed--Crisis Brief Attender: Joni Gonzalez [facility] 05/26/2020 12:30:00 PM EST - 05/26/2020 12:30:00 PM EST [facility] ([facility]) Attender: Joni Gonzalez 05/26/2020 12:00:00 AM EST [facility] ([facility]) Brief Individual Psychotherapy - 30 min Attender: Marta schuster [facility] 05/21/2020 12:30:00 PM EST - 05/21/2020 12:30:00 PM EST [facility] ([facility]) Attender: Marta Chicas 05/21/2020 12:00:00 AM EST [facility] ([facility]) Extended Individual Psychotherapy - 45 min [facility] 05/02/2020 10:00:00 AM EST - 05/02/2020 10:00:00 AM EST [facility] ([facility]) Attender: Joni Gonzalez 05/02/2020 12:00:00 AM EST [facility] ([facility]) Outpatient Attender: Daniela Martinez [facility] RELIEF WORKER [facility] 04/10/2020 02:30:00 AM EST - 04/10/2020 02:30:00 AM EST [facility] ([facility]) Attender: Daniela Martinez [facility] [employer]IE[employer] WORK[facility] 04/10/2020 12: 00:00 AM EST [facility] ([facility]) Extended Individual Psychotherapy - 45 min Attender: Therese carrillo Lisa [facility] 03/28/2020 08:00:00 AM EST - 03/28/2020 08:00:00 AM EST [facility] ([facility]) Attender: Joni [facility] 03/28/2020 12:00:00 AM EST [facility] ([facility]) Extended Individual Psychotherapy - 45 min Attender: Therese carrillo [facility] 03/25/2020 01:45:00 AM EST - 03/25/2020 01:45:00 AM EST [facility] 12:00:00 AM EST [facility] ([facility]) Outpatient [address] [address]-[employer] Team 03/14/2020 12:00:00 AM EST [facility] Patient admitted. Brief Individual Psychotherapy - 30 min [facility]/04/2020 03:15:00 AM EST - 03/04/2020 03:15:00 AM EST [facility] ([facility]) Attender: [facility] 03/04/2020 12:00:00 AM EST [facility] ([facility]) Extended Individual Psychotherapy - 45 min Att[facility]: [facility] 02/19/2020 01:45:00 AM EDT - 02/19/2020 01:45:00 AM EDT [facility] ([facility]) Attender: [facility] 02/19/2020 12:00:00 AM EDT [facility] ([facility]) Extended Individual Psychotherapy - 45 min Attender: Therese carrillo [facility] 02/05/2020 01:45:00 AM EDT - 02/05/2020 01:45:00 AM EDT [facility] ([facility]) [facility] 02/05/2020 12:00:00 AM EDT [facility] ([facility]) Outpatient Attender: Daniela Martinez PM-[employer] RELIEF WORKER [facility] 02/04/2020 04:00:00 AM EDT - 02/04/2020 04:00:00 AM EDT [facility] ([facility]) Attender: Daniela BARBOSA 02/04/2020 12: 00:00 AM EDT [facility] ([facility]) Extended Individual Psychotherapy - 45 min Attender: Therese carrillo [facility] 01/18/2020 11:15:00 AM EDT - 01/18/2020 11:15:00 AM EDT [facility] ([facility]) Attender: Joni Gonzalez 01/18/2020 12:00:00 AM EDT [facility]) Functional Status Medications Medication Brand Name Start Date Product Form Dose Route Admi nistrative Instructions Pharmacy Instructions Status Indications Reaction Description Data Source(s) Propranolol Hydrochloride 40 MG Oral Tablet propranolol 04/10/2020 12:00:00 AM EST 40 mg by mouth completed <td ID="MedicationRxNorm_3">534795</td><td ID="MedicationMedication_3">propranolol</td><td ID="MedicationRoute_3">by mouth</td><td ID="MedicationRouteConcept_3">E01471</td><td ID="MedicationStartDate_3">04/10/2020</td><td ID="MedicationStopDate_3"></td><td ID="MedicationDosageFrequency_3">twice a day</td><td ID="MedicationDuration_3"></td><td ID="MedicationFormulaStrength_3">40 mg</td><td ID="MedicationDosageForm_3">tablet</td><td ID="MedicationDosageFormCode_3"></td><td ID="MedicationDosageDescription_3"></td><td ID="MedicationMedicationId_3">[id number]</td><td ID="MedicationAccount_3">[id number]</td><td ID="MedicationNpid_3">[id number]</td><td ID="MedicationAuthorFirstName_3">Jose</td><td ID="MedicationAuthorLastName_3">Skinner</td><td ID="MedicationTaxonomyCode_3">[id number]</td><td ID="MedicationTaxonomyDesc_3">Nurse Practitioner</td><td ID="MedicationPhoneNumber_3">[phone]</td> [facility] ([facility]) 24 HR paliperidone 9 MG Extended Release Oral Tablet paliper idone 04/10/2020 12:00:00 AM EST 9 mg by mouth completed <td ID="MedicationRxNorm_4">471155</td><td ID="MedicationMedication_4">paliperidone</td><td ID="MedicationRoute_4">by mouth</td><td ID="MedicationRouteConcept_4">G84602</td><td ID="MedicationStartDate_4">04/10/2020</td><td ID="MedicationStopDate_4">11/26/2020</td><td ID="MedicationDosageFrequency_4">once a day</td><td ID="MedicationDuration_4">30</td><td ID="MedicationFormulaStrength_4">9 mg</td><td ID="MedicationDosageForm_4">tablet extended release 24hr</td><td ID="MedicationDosageFormCode_4"></td><td ID="MedicationDosageDescription_4"></td><td ID="MedicationMedicationId_4">[id number]</td><td ID="MedicationAccount_4">[id number]</td><td ID="MedicationNpid_4">[id number]</td><td ID="MedicationAuthorFirstName_4">Daniela</td><td ID="MedicationAuthorLastName_4">Michelle</td><td ID="MedicationTaxonomyCode_4">[id number]</td><td ID="MedicationTaxonomyDesc_4"> Psychiatric/Mental Health</td><td ID="MedicationPhoneNumber_4">[phone]</td> [facility] ([facility]) quetiapine 100 MG Oral Tablet [Seroquel] Seroquel 01/16/2020 12 :00:00 AM EDT 100 mg by mouth completed <td ID="Me dicationRxNorm_3">553001</td><td ID="MedicationMedication_3">Seroquel</td><td ID="MedicationRoute_3">by mouth</td><td ID="MedicationRouteConcept_3">S23372</td><td ID="MedicationStartDate_3">01/16/2020</td><td ID="MedicationStopDate_3"></td><td ID="MedicationDosageFrequency_3">every night</td><td ID="MedicationDuration_3"></td><td ID="MedicationFormulaStrength_3">100 mg</td><td ID="MedicationDosageForm_3">tablet</td><td ID="MedicationDosageFormCode_3"></td><td ID="MedicationDosageDescription_3"></td><td ID="MedicationMedicationId_3">[id number]</td><td ID="MedicationAccount_3">[id number]</td><td ID="MedicationNpid_3">[id number]</td><td ID="MedicationAuthorFirstName_3">Daniela</td><td ID="MedicationAuthorLastName_3">Michelle</td><td ID="MedicationTaxonomyCode_3">[id number]</td><td ID="MedicationTaxonomyDesc_3">Psychiatric/Mental Health</td><td ID="MedicationPhoneNumber_3">[phone]</td> [facility] ([facility]) 24 HR paliperidone 6 MG Extended Release Oral Tablet paliper idone 01/16/2020 12:00:00 AM EDT 6 mg by mouth completed <td ID="MedicationRxNorm_6">481206</td><td ID="MedicationMedication_6">paliperidone</td><td ID="MedicationRoute_6">by mouth</td><td ID="MedicationRouteConcept_6">A83005</td><td ID="MedicationStartDate_6">01/16/2020</td><td ID="MedicationStopDate_6">04/15/2020</td><td ID="MedicationDosageFrequency_6">once a day</td><td ID="MedicationDuration_6">30</td><td ID="MedicationFormulaStrength_6">6 mg</td><td ID="MedicationDosageForm_6">tablet extended release 24hr</td><td ID="MedicationDosageFormCode_6"></td><td ID="MedicationDosageDescription_6"></td><td ID="MedicationMedicationId_6">[id number]</td><td ID="MedicationAccount_6">[id number]</td><td ID="MedicationNpid_6">[id number]</td><td ID="MedicationAuthorFirstName_6">Daniela</td><td ID="MedicationAuthorLastName_6">[place]</td><td ID="MedicationTaxonomyCode_6">[id number]</td><td ID="MedicationTaxonomyDesc_6"> Psychiatric/Mental Health</td><td ID="MedicationPhoneNumber_6">[phone]</td> [facility] ([facility]) 24 HR paliperidone 6 MG Extended Release Oral Tablet paliper idone 01/16/2020 12:00:00 AM EDT 6 mg by mouth completed <td ID="MedicationRxNorm_5">436818</td><td ID="MedicationMedication_5">paliperidone</td><td ID="MedicationRoute_5">by mouth</td><td ID="MedicationRouteConcept_5">N67692</td><td ID="MedicationStartDate_5">01/16/2020</td><td ID="MedicationStopDate_5">04/15/2020</td><td ID="MedicationDosageFrequency_5">once a day</td><td ID="MedicationDuration_5">30</td><td ID="MedicationFormulaStrength_5">6 mg</td><td ID="MedicationDosageForm_5">tablet extended release 24hr</td><td ID="MedicationDosageFormCode_5"></td><td ID="MedicationDosageDescription_5"></td><td ID="MedicationMedicationId_5">[id number]</td><td ID="MedicationAccount_5">[id number]</td><td ID="MedicationNpid_5">[id number]</td><td ID="MedicationAuthorFirstName_5">Daniela</td><td ID="MedicationAuthorLastName_5">[place]</td><td ID="MedicationTaxonomyCode_5">[id number]</td><td ID="MedicationTaxonomyDesc_5"> Psychiatric/Mental Health</td><td ID="MedicationPhoneNumber_5">[phone]</td> [facility] ([facility]) Nicotine 2 MG Chewing Gum nicotine (polacrilex) 01/16/2020 12:00:00 AM EDT 2 mg completed <td ID="Me dicationRxNorm_4">649123</td><td ID="MedicationMedication_4">nicotine (polacrilex)</td><td ID="MedicationRoute_4">in mouth</td><td ID="MedicationRouteConcept_4"></td><td ID="MedicationStartDate_4">01/16/2020</td><td ID="MedicationStopDate_4">03/16/2020</td><td ID="MedicationDosageFrequency_4">every four hours</td><td ID="MedicationDuration_4">30</td><td ID="MedicationFormulaStrength_4">2 mg</td><td ID="MedicationDosageForm_4">gum</td><td ID="MedicationDosageFormCode_4"></td><td ID="MedicationDosageDescription_4">as needed</td><td ID="MedicationMedicationId_4">[id number]</td><td ID="MedicationAccount_4">[id number]</td><td ID="MedicationNpid_4">[id number]</td><td ID="MedicationAuthorFirstName_4">Daniela</td><td ID="MedicationAuthorLastName_4">Michelle</td><td ID="MedicationTaxonomyCode_4">[id number]</td><td ID="MedicationTaxonomyDesc_4">Psychiatric/Mental Health</td><td ID="MedicationPhoneNumber_4">[phone]</td> [facility] ([facility]) 24 HR paliperidone 6 MG Extended Release Oral Tablet paliper idone 01/16/2020 12:00:00 AM EDT 6 mg by mouth completed <td ID="MedicationRxNorm_3">078088</td><td ID="MedicationMedication_3">paliperidone</td><td ID="MedicationRoute_3">by mouth</td><td ID="MedicationRouteConcept_3">Z84409</td><td ID="MedicationStartDate_3">01/16/2020</td><td ID="MedicationStopDate_3">04/15/2020</td><td ID="MedicationDosageFrequency_3">once a day</td><td ID="MedicationDuration_3">30</td><td ID="MedicationFormulaStrength_3">6 mg</td><td ID="MedicationDosageForm_3">tablet extended release 24hr</td><td ID="MedicationDosageFormCode_3"></td><td ID="MedicationDosageDescription_3"></td><td ID="MedicationMedicationId_3">[id number]</td><td ID="MedicationAccount_3">[id number]</td><td ID="MedicationNpid_3">[id number]</td><td ID="MedicationAuthorFirstName_3">Daniela</td><td ID="MedicationAuthorLastName_3">[place]</td><td ID="MedicationTaxonomyCode_3">[id number]</td><td ID="MedicationTaxonomyDesc_3"> Psychiatric/Mental Health</td><td ID="MedicationPhoneNumber_3">[phone]</td> [facility] ([facility]) Nicotine 2 MG Chewing Gum nicotine (polacrilex) 01/16/2020 12:00:00 AM EDT 2 mg completed <td ID="Me dicationRxNorm_5">945612</td><td ID="MedicationMedication_5">nicotine (polacrilex)</td><td ID="MedicationRoute_5">in mouth</td><td ID="MedicationRouteConcept_5"></td><td ID="MedicationStartDate_5">01/16/2020</td><td ID="MedicationStopDate_5">03/16/2020</td><td ID="MedicationDosageFrequency_5">every four hours</td><td ID="MedicationDuration_5">30</td><td ID="MedicationFormulaStrength_5">2 mg</td><td ID="MedicationDosageForm_5">gum</td><td ID="MedicationDosageFormCode_5"></td><td ID="MedicationDosageDescription_5">as needed</td><td ID="MedicationMedicationId_5">[id number]</td><td ID="MedicationAccount_5">[id number]</td><td ID="MedicationNpid_5">[id number]</td><td ID="MedicationAuthorFirstName_5">Daniela</td><td ID="MedicationAuthorLastName_5">[place]</td><td ID="MedicationTaxonomyCode_5">[id number]</td><td ID="MedicationTaxonomyDesc_5">Psychiatric/Mental Health</td><td ID="MedicationPhoneNumber_5">[phone]</td> [facility] ([facility]) Propranolol Hydrochloride 40 MG Oral Tablet propranolol 11/21/2019 12:00:00 AM EDT 40 mg by mouth completed <td ID="MedicationRxNorm_4">981051</td><td ID="MedicationMedication_4">propranolol</td><td ID="MedicationRoute_4">by mouth</td><td ID="MedicationRouteConcept_4">T98637</td><td ID="MedicationStartDate_4">11/21/2019</td><td ID="MedicationStopDate_4">03/16/2020</td><td ID="MedicationDosageFrequency_4">twice a day</td><td ID="MedicationDuration_4">30</td><td ID="MedicationFormulaStrength_4">40 mg</td><td ID="MedicationDosageForm_4">tablet</td><td ID="MedicationDosageFormCode_4"></td><td ID="MedicationDosageDescription_4"></td><td ID="MedicationMedicationId_4">[id number]</td><td ID="MedicationAccount_4">[id number]</td><td ID="MedicationNpid_4">[id number]</td><td ID="MedicationAuthorFirstName_4">Daniela</td><td ID="MedicationAuthorLastName_4">Michelle</td><td ID="MedicationTaxonomyCode_4">[id number]</td><td ID="MedicationTaxonomyDesc_4">Psychiatric/Mental Health</td><td ID="MedicationPhoneNumber_4">[phone]</td> [facility] ([facility]) Insurance Providers Payer name Policy type / Coverage type Policy ID Covered alliance party ID Covered alliance party's relationship to toney Policy Toney Plan Information [facility] [id number] Self [id number] [facility] I [id number] Self [id number] [facility] [id number] Self [id number] [facility] I [id number] Self [id number] [facility] MEDICARE [id number] Self [id number] [facility] MEDICARE [id number] [place] [id number] Self [id number] [place]ICAID [place] [id number] [employer] [facility] [facility] [place] [id number] SP [id number] [facility] COMMUNITY PLAN [facility] [id number] SP [id number] [facility] [id number] SP [id number] MEDICARE COMPLETE [id number] SP [id number] [facility] [id number] SP [id number] [facility] [id number] SP [id number] [facility] P UNAVAILABLE S UNAVAILABLE Medicare O UNAVAILABLE S UNAVAILA BLE Medicaid S UNAVAILABLE S UNAVAILA BLE [facility] [id number] SP [id number] Managed Care - [facility] P UNAVAILABLE S UNAVAILABLE ANSI-Not a Secondary Insurance [id number] ANSI-Not a Secondary Insurance [id number] [facility] [id number] SP [id number] [facility] [id number] SP [id number] ANSI-Not a Secondary Insurance [id number] ANSI-Not a Secondary Insurance [id number] ANSI-Not a Secondary Insurance [id number] [facility] [id number] SP [id number] ANSI-Not a Secondary Insurance [id number] ANSI-Not a Secondary Insurance [id number] TOTAL [facility]ARE MEDICAID/[place] [id number] Diana [id number] TOTAL CARE MEDICAID/[place] [id number] Diana [id number] COMMERCIAL GENERIC [id number] Diana E [id number] S [id number] VALUE OPTIONS FOR MVP [id number] S [id number] [facility] [id number] SP [id number] VAL[employer] FOR MVP [id number] S [id number] [facility] PH[facility] [id number] S [id number] MEDICAID [id number] SP [id number] [facility]) O [id number] S [id number] TOTAL CARE MEDICAID [id number] Diana [id number] TOTAL CARE MEDICAID [id number] Diana [id number] COMMERCIAL GENERIC UNAVAILABLE Diana [facility]VAILABLE [facility] [id number] SP [id number] [facility] O [id number] S [id number] [facility] [id number] SP [id number] MEDICARE [id number] SP [id number] [place] [id number] SP [id number] [id number] SP [id number] [facility] [id number] SP [id number] [id number] SP [id number] [facility] COMMUNITY PLAN [facility] [id number] SP [id number] Problems, Conditions, and Diagnoses Code Display Name Description Problem Type Effective Dates Data Source(s) R45.851 Suicidal ideations Suicidal ideations Diagnosis 06/2020 02:40:00 PM EDT [facility] 9.45 9.45 Diagnosis 09/25/2020 02:40:00 PM ED T [facility] EMS EMS Diagnosis 09/25/2020 02:40:00 PM ED T [facility] unspecified psychotic disorder unspecified psychotic d isorder Diagnosis 09/25/2020 04:45:[address] [facility] F31.9 Bipolar disorder, unspecified Bipolar I disorder, Current or most recent episode manic, Unspecified Diagnosis 03/14/2020 12:00:00 AM EST [facility] ([facility]) F20.0 Paranoid schizophrenia Paranoid schizophrenia Conditio n 02/18/2021 12:00:00 AM EDT [facility] ([facility]) F14.20 Cocaine dependence, uncomplicated Stimul ant Use Disorder. 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 15 MIN 02/18/2021 12:00:00 AM EDT - 02/18/2021 12:00:00 AM EDT [facility] ([facility]) 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 15 MIN 02/18 12:00:00 AM EDT [facility] ([facility]) Extended Individual Psychotherapy - 45 min 02/18/2021 12:00:00 AM EDT - 02/18/2021 12:00:00 AM EDT [facility] ([facility]) Extended Individual Psychotherapy - 45 min 12:00:00 AM EDT [facility] ([facility]) Brief Individual Psychotherapy - 30 min 10/31/2020 12:00:00 AM EDT - 10/31/2020 12:00:00 AM EDT [facility] ([facility]) Brief Individual Psychotherapy - 30 min 10/31/2020 12: 00:00 AM EDT [facility] ([facility]) OFFICE OUTPATIENT VISIT 15 MINUTES 10/16 12:00:00 AM EDT - 10/16/2020 12:00:00 AM EDT [facility] ([facility]) OFFICE OUTPATIENT VISIT 15 MINUTES 10/16/2020 12:00:00 AM EDT [facility] ([facility]) LIPID PANEL <td>LIPID PANEL</td><td>Rout ine</td><td>09/26/2020 6:58 AM EDT</td><td></td><td> </td> 09/26/2020 06:58:00 AM EDT [facility] COMPREHENSIVE METABOLIC PANEL <td>COMPREHENSIVE METABO LIC PANEL</td><td>Routine</td><td>09/26/2020 6:58 AM EDT</td><td></td><td> </td> 09/26/2020 06:58:00 AM EDT [facility] OFFICE OUTPATIENT VISIT 15 MINUTES 09/09 12:00:00 AM EDT - 09/09/2020 12:00:00 AM EDT [facility] ([facility]) OFFICE OUTPATIENT VISIT 15 MINUTES 09/09/2020 12:00:00 AM EDT [facility] ([facility]) Extended Individual Psychotherapy - 45 min 09/03/2020 12:00:00 AM EDT - 09/03/2020 12:00:00 AM EDT [facility] ([facility]) Extended Individual Psychotherapy - 45 min 12:00:00 AM EDT [facility] ([facility]) Brief Individual Psychotherapy - 30 min 08/20/2020 12:00:00 AM EDT - 08/20/2020 12:00:00 AM EDT [facility] ([facility]) Brief Individual Psychotherapy - 30 min 08/20/2020 12: 00:00 AM EDT [facility] ([facility]) OFFICE OUTPATIENT VISIT 25 MINUTES 08/07 12:00:00 AM EDT - 08/07/2020 12:00:00 AM EDT [facility] ([facility]) OFFICE OUTPATIENT VISIT 25 MINUTES 08/07/2020 12:00:00 AM EDT [facility] ([facility]) Extended Individual Psychotherapy - 45 min 07/24/2020 12:00:00 AM EDT - 07/24/2020 12:00:00 AM EDT [facility] ([facility]) Extended Individual Psychotherapy - 45 min 12:00:00 AM EDT [facility] ([facility]) Extended Individual Psychotherapy - 45 min 07/16/2020 12:00:00 AM EDT - 07/16/2020 12:00:00 AM EDT [facility] ([facility]) Extended Individual Psychotherapy - 45 min 12:00:00 AM EDT [facility] ([facility]) OFFICE OUTPATIENT VISIT 15 MINUTES 07/10 12:00:00 AM EDT - 07/10/2020 12:00:00 AM EDT [facility] ([facility]) Psychotherapy ADD ON - 30 Minutes 07/10/2020 12:00:00 AM EDT [facility] ([facility]) OFFICE OUTPATIENT VISIT 15 MINUTES 07/10/2020 12:00:00 AM EDT [facility] ([facility]) Extended Individual Psychotherapy - 45 min 06/24/2020 12:00:00 AM EST - 06/24/2020 12:00:00 AM EST [facility] ([facility]) Extended Individual Psychotherapy - 45 min 12:00:00 AM EST [facility] ([facility]) MHC Telemed E/M Lvl 3--Est pt 06/16/2020 12:00:00 AM EST - 06/16/2020 12:00:00 AM EST [facility] ([facility]) MHC Telemed E/M Lvl 3--Est pt 06/16/2020 12:00:[address] [facility] ([facility]) NONPHYSICIAN TELEPHONE ASSESSMENT 11-20 MIN 06/11/2020 12:00:00 AM EST - 06/11/2020 12:00:00 AM EST [facility] ([facility]) NONPHYSICIAN TELEPHONE ASSESSMENT 11-20 MIN 06/11/2020 12:00:00 AM EST [facility] ([facility]) OFFICE OUTPATIENT VISIT 15 MINUTES 05/28 12:00:00 AM EST - 05/28/2020 12:00:00 AM EST [facility] ([facility]) OFFICE OUTPATIENT VISIT 15 MINUTES 05/28/2020 12:00:00 AM EST [facility] ([facility]) TEMPMHCTelemed--Crisis Brief 05/26/2020 12:00:00 AM EST - 05/26/2020 12:00:00 AM EST [facility] ([facility]) TEMPMHCTelemed--Crisis Brief 05/26/2020 12:00:00 AM ES T [facility] ([facility]) Brief Individual Psychotherapy - 30 min 05/21/2020 12:00:00 AM EST - 05/21/2020 12:00:00 AM EST [facility] ([facility]) Brief Individual Psychotherapy - 30 min 05/21/2020 12: 00:00 AM EST [facility] ([facility]) Extended Individual Psychotherapy - 45 min 05/02/2020 12:00:00 AM EST - 05/02/2020 12:00:00 AM EST [facility] ([facility]) Extended Individual Psychotherapy - 45 min 12:00:00 AM EST [facility] ([facility]) MHC Telemed E/M Lvl 3--Est pt 04/10/2020 12:00:00 AM EST - 04/10/2020 12:00:00 AM EST [facility] ([facility]) Telemed A/O 30" 04/10/2020 12:00:00 AM EST [facility] ([facility]) MHC Telemed E/M Lvl 3--Est pt 04/10/2020 12:00:[address] [facility] ([facility]) Extended Individual Psychotherapy - 45 min 03/28/2020 12:00:00 AM EST - 03/28/2020 12:00:00 AM EST [facility] ([facility]) Extended Individual Psychotherapy - 45 min 0 12:00:00 AM EST [facility] ([facility]) Extended Individual Psychotherapy - 45 min 03/25/2020 12:00:00 AM EST - 03/25/2020 12:00:00 AM EST [facility] ([facility]) Extended Individual Psychotherapy - 45 min 0 12:00:00 AM EST [facility] ([facility]) Brief Individual Psychotherapy - 30 min 03/04/2020 12:00:00 AM EST - 03/04/2020 12:00:00 AM EST [facility] ([facility]) Brief Individual Psychotherapy - 30 min 03/04/2020 12: 00:00 AM EST [facility] ([facility]) Extended Individual Psychotherapy - 45 min 02/19/2020 12:00:00 AM EDT - 02/19/2020 12:00:00 AM EDT [facility] ([facility]) Extended Individual Psychotherapy - 45 min 0 12:00:00 AM EDT [facility] ([facility]) Extended Individual Psychotherapy - 45 min 02/05/2020 12:00:00 AM EDT - 02/05/2020 12:00:00 AM EDT [facility] ([facility]) Extended Individual Psychotherapy - 45 min 0 12:00:00 AM EDT [facility] ([facility]) MHC Telemed E/M Lvl 3--Est pt 02/04/2020 12:00:00 AM EDT - 02/04/2020 12:00:00 AM EDT [facility] ([facility]) Telemed A/O 30" 02/04/2020 12:00:00 AM EDT [facility] ([facility]) MHC Telemed E/M Lvl 3--Est pt 02/04/2020 12:00:00 AM E DT [facility] ([facility]) Extended Individual Psychotherapy - 45 min 01/18/2020 12:00:00 AM EDT - 01/18/2020 12:00:00 AM EDT [facility] ([facility]) Extended Individual Psychotherapy - 45 min 0 12:00:00 AM EDT [facility] ([facility]) Results ID Date Data Source [id number] 11/21/2020 11:31:00 AM EDT [facility] Name Value Range Interpretation Code Description Data Cinthia rce(s) Supporting Document(s) SARS coronavirus 2 RNA [Presence] in Res piratory specimen by JAVON with probe detection NEGATIVE [facility] This lab was ordered by [facility] a nd reported by [facility]. ID Date Data Source [id number] 10/19/2020 07:05:00 AM EDT [facility] Name Value Range Interpretation Code Description Data Cinthia rce(s) Supporting Document(s) Trich vag by JAVON [facility] TESTS RESULT FLAG UNI TS REF RANGE LAB Trich vag by JAVON Negative (Negative) 01 FLAG LEGEND: L-Low Normal,H-High Normal,LL-Alert Low,HH-Alert High <-Panic Low,>-Panic High,A-Abnormal,AA-Critical Abnormal Performed at:01 RN [facility] [address] [id number] Barbara Thibodeaux MD, ID Date Data Source [id number] 10/02/2020 12:15:32 PM EDT [facility] Name Value Range Interpretation Code Description Data Cinthia rce(s) Supporting Document(s) Nursing Note [facility] PUVPQd2nFhDEFdSr16/RWPrgAURhx2LwIIrtAXr9BOvgIHQmZ3ByHOD9tN3hTAZ4LZiOEnZyPuNyNlEw lbm [file] 5Z4hhz1A+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 [file] AgICAgICAgICAgICAgICAgICAgICAgICAgICAgICAgICAgICAgICAgICAgICAgICAgICAgICAgICAgDQ ogICAgICAgICAgICAgICAgICAgICAgICAgICAgICAg ICAgICAgICAgICAgICAgICAgICAgICAgICAgICAgICAgICAgICAgICAgICAgICAgICAgICAgICAgICAg ICAgICAgICAgDQogICAgICAgICAgICAgICAgICAgICAgICAgICAgICAgICAgICAgICAgICAgICAgICAg ICAgICAgICAgICAgICAgICAgICAgICAgICAgICAgIC AgICAgICAgICAgICAgICAgICAgDQogICAgICAgICAgICAgICAgICAgICAgICAgICAgICAgICAgICAgIC AgICAgICAgICAgICAgICAgICAgICAgICAgICAgICAgICAgICAgICAgICAgICAgICAgICAgICAgICAgIC AgDQogICAgICAgICAgICAgICAgICAgICAgICAgICAg ICAgICAgICAgICAgICAgICAgICAgICAgICAgICAgICAgICAgICAgICAgICAgICAgICAgICAgICAgICAg ICAgICAgICAgICAgDQogICAgICAgICAgICAgICAgICAgICAgICAgICAgICAgICAgICAgICAgICAgICAg ICAgICAgICAgICAgICAgICAgICAgICAgICAgICAgIC AgICAgICAgICAgICAgICAgICAgICAgDQogICAgICAgICAgICAgICAgICAgICAgICAgICAgICAgICAgIC AgICAgICAgICAgICAgICAgICAgICAgICAgICAgICAgICAgICAgICAgICAgICAgICAgICAgICAgICAgIC AgICAgDQogICAgICAgICAgICAgICAgICAgICAgICAg ICAgICAgICAgICAgICAgICAgICAgICAgICAgICAgICAgICAgICAgICAgICAgICAgICAgICAgICAgICAg ICAgICAgICAgICAgICAgDQogICAgICAgICAgICAgICAgICAgICAgICAgICAgICAgICAgICAgICAgICAg ICAgICAgICAgICAgICAgICAgICAgICAgICAgICAgIC AgICAgICAgICAgICAgICAgICAgICAgICAgDQogICAgICAgICAgICAgICAgICAgICAgICAgICAgICAgIC AgICAgICAgICAgICAgICAgICAgICAgICAgICAgICAgICAgICAgICAgICAgICAgICAgICAgICAgICAgIC UnHXOcVBUsPLn4S3gbROJkWUYpVQ8eIQg2Fy0+DQoN RbXjPSV3qnQrzJ6KVZ3fn3FsVMauJBEgw6AyMJv7NL5ASVPoEMdkZR6RRXhqvk7RFXXiWMEejWGKd3yv FhHiGWS2QKCxNzvmZH3UKOZuJ5ehuyUzMSGuLGFZFG6KOaPpN1LckL67WIYGCq3+DQplbmRvYmoNCjI0 CUTqk3VsTTq0NI2LPADrDophj6YyVmJtJDPRJHuaIQ 7CRIZ8GIS0WEWcSc7KJEJzH120vcXqLC4PFh2DDgLaGE8pjj1XMbVfYSRjGfeDBqt9TFbjNH7OtIElYM fNrBRjnS0zQF8knAYbVlnaALVeyDBcRXBXq6J7VBWbLNNDPKI2FITtHg1yITEmDNFfXhQ5HVFSEV2UAA CcBJCnqHZxRAJbYBMZJU9PXYyvBOQ2NykvbnEiiNHo NChpMZ0TXJYedaZiHoCqFYINHNf+Gc1ERX8mi9YrNZvtUtGxND2gfs7NQAaRTaAuF9I0hJFeT3E6NDld Ri4NQAJcDONoCqNbLBXTHJfrWM8TKG5vreO9SY8CkUZfEYUkXYTdyQXyEWe0C43avUPyYIazUP4UXTH+ Simin+Gv3MTZGkZTBuSIWjXiZsZYSSMnUnM8VvC7WWd0 BgQ6BnVG43hJwcchIuMIqeIU7CDX5tPAKtZDNSMM5HxRAaxE3bhfXoVQNjBKIGDrWhU31oaYJqPAJcJI FxHPJjSe5OWZReM1CekwFgmJlyfnNmXEAkWBJZNH4DLUhtqlJatHJzqVetCK15rLpdDF7QQv9JYjYxPT 4ckk8HzSHxKa8GTLHtJw0IGKUvCIQfEDQqMOY9BMCp DcQuLRtiEGVyKJIjDDL5FRFfXXGkWL4NNuMuNXZvIMe1JtKtOGCaGMFjmb1MAKBrRNRzMMJjXYUcRHMq MRKbEYxiAJQeXTNiFKM6FKSqUHJaHM8RPwGbNAUyRRY1GvQmHIFjTBMzuo8MFJGeJEBcULKyHETfBQRs TAUmYUqlNIChVTKzKFk2UPDoQOPxHN9EMdTmVZFyTJ V3XNnaLBUtGRUmxu3RDMJcKGDsPox3UbQrKNPqWRCjOYvoXKTwTJTyMZXmZVEpWDDiVI5ILgVkFOUtHJ YmJmzzLNJkPODjst4QJXFbWWYrRLJhLDKxUHMjRWDbSMqzGRLuEVO2JcF1EHDaIIGjCD2FSlCtTBZzIV C9KNWjGKQkLVBccj0MPUFcOIQdJoF6OPDiQKZkOFDf ZAabKCJqOBB2GTC5FHPyLLOoQR8OUsOsPEQePHj1KIOuNVGdEFQnpm1JMSZnNJJyOCKoNkPrRRUyMKPe JWjgYEZeVLS4XrI6SCBoGIKnID1MGuSnERZiQBb8FIQhFZVwVZUnna7KGSZmNBGrJEC6VHSwJVPgIJTa QCagOZTeUUH0BHF1FPSnEXFqIX9FIlPkMDYvWDx6CV OwKUBeXFCpkd1NVTFsQCZqBKVfHMLhFDOzFEUoIOgiPJPhYKKwBvv5PUGrGJKyCD1VVmRqFSSfTjA6VP ZnKUYiVIYzuw6IxBDudJxmvz9MWOgHPs1VaCilQKW0XEuwKe2caOPiLvSePXETYi4FdeQhYMPnABHUFP nwNOYbDRCzVZYpMaVdFGHxAqZfHZT5KQL4IatkIFSo RuwpEUb0EfB2CyMqQDQ8IJHtDbF4UIW8KSrjHVmfNYQlObC7ATA2IdT+SK1kOTq+Na9Ng1YqmsZ2vxKa QWipLFh8IL6RHEGXP1ZNTf== ID Date Data Source [id number] 09/29/2020 04:55:50 PM EDT [facility] Name Value Range Interpretation Code Description Data Cinthia rce(s) Supporting Document(s) Nursing Note [facility] GZNYXt0hEdWXByNd53/XEYexIYChr9VjVWjtYAl7BNipFGCzB0VpVJD7uP4yHYK4EVpDVpYeInVyEpJ9 lbm [file] CiAgICAgICAgICAgICAgICAgICAgICAgICAgICAgICAgICAgICAgICAgICAgICAgICAgICAgICAgICAg ICAgICAgICAgICAgICAgICAgICAgICAgICAgICAgIC AgICAgICAgICANCiAgICAgICAgICAgICAgICAgICAgICAgICAgICAgICAgICAgICAgICAgICAgICAgIC AgICAgICAgICAgICAgICAgICAgICAgICAgICAgICAgICAgICAgICAgICAgICAgICAgICANCiAgICAgIC AgICAgICAgICAgICAgICAgICAgICAgICAgICAgICAg ICAgICAgICAgICAgICAgICAgICAgICAgICAgICAgICAgICAgICAgICAgICAgICAgICAgICAgICAgICAg ICANCiAgICAgICAgICAgICAgICAgICAgICAgICAgICAgICAgICAgICAgICAgICAgICAgICAgICAgICAg ICAgICAgICAgICAgICAgICAgICAgICAgICAgICAgIC AgICAgICAgICAgICANCiAgICAgICAgICAgICAgICAgICAgICAgICAgICAgICAgICAgICAgICAgICAgIC AgICAgICAgICAgICAgICAgICAgICAgICAgICAgICAgICAgICAgICAgICAgICAgICAgICAgICANCiAgIC AgICAgICAgICAgICAgICAgICAgICAgICAgICAgICAg ICAgICAgICAgICAgICAgICAgICAgICAgICAgICAgICAgICAgICAgICAgICAgICAgICAgICAgICAgICAg ICAgICANCiAgICAgICAgICAgICAgICAgICAgICAgICAgICAgICAgICAgICAgICAgICAgICAgICAgICAg ICAgICAgICAgICAgICAgICAgICAgICAgICAgICAgIC AgICAgICAgICAgICAgICANCiAgICAgICAgICAgICAgICAgICAgICAgICAgICAgICAgICAgICAgICAgIC AgICAgICAgICAgICAgICAgICAgICAgICAgICAgICAgICAgICAgICAgICAgICAgICAgICAgICAgICANCi AgICAgICAgICAgICAgICAgICAgICAgICAgICAgICAg ICAgICAgICAgICAgICAgICAgICAgICAgICAgICAgICAgICAgICAgICAgICAgICAgICAgICAgICAgICAg ICAgICAgICANCiAgICAgICAgICAgICAgICAgICAgICAgICAgICAgICAgICAgICAgICAgICAgICAgICAg ICAgICAgICAgICAgICAgICAgICAgICAgICAgICAgIC AgICAgICAgICAgICAgICAgICANCjw/eUUkX0vevKPiaiO3F2wqGx0FVg5GNU2gv5TiIGKwDEreluIiXo jSGeHhSUKoPiqHBld5BZwuYY4OyCMtO0MbR5AgNKkdPK1OOJAiZRUunQLbEBZyLQXtYhE5VDBpQWjxUZ 4IgCOsAFzbGHPqBGYxQI7PUIVpM412jqVzPP1RHj3V KtXkST6dik1HFnKjIYNlReeMFsh0GTlqTY8SnWGlaZKoOnUjQMVFAuAxR0gls6TfWmJlXXJQMYthYZ4O l6IgyLErOWd+Rf7POU3wn7PyUDvbLxVyKB9dkh7WYIxDRlTfC6HriNboEZ25ubZzhertYg79JPUtpDOV EBOkC6VoZNGrZ6ttwoSdGSRQHZS0ZJYqKn9jPHDmLV M7LqO9BWZITZ8BDQDwQTYguVPwHDLiADTALL7CJWetRVB0KpyrenDqmDDtRUgqUT8HUSGkvmOoToIhRG BSDQo+Nv9BKR3ye2FmLVjaQQQuKK3avs4LYTwQRnUuG5G1fGRuH2P4LNizFl2LHXEeURMeHePrYICBNP svJC6EQP3exiR0LY9HbSYdZJVuDAQmtEUwBVr3A51t cVQyJKswOG0BFQC+Simin+Wf9ABTCeHROdXJCuIwKrOEEYPeGtH7AyX5WEm5TfW2RiXL19pHvhbqPrIQaq ZS3LOP5cVPOvVVIZDG6QeCPnpK0zzyZhZxWeQWVKScPlQ74rvBAtBXNcMSErYSYnDw5UPSJyE1QuxdAc uFtotbNyXYSrXLAUOG8CHSifxsHbiHUokLxbGP68yI ysED4CPq4FTnFoVT0tqw6QyCLrNk1DZFEzEQ0XEWGbCNXrFJHgJCD4VSJjNmWkYGnyKJOeBSSgZNE3YI ApRAHzSB5OOzVjGMVfALi1OCUgLTTbXPSqza5VNCOkSKDrDIHkFWPlEMDuNXOeSEnrUEXhRJCoJYN5LZ LnRTXcLU7SAhCoVNJaIGAmRTKuJBOiUJHyqo2RAQBo ZDTiFBPzMzKlWFBsGJEiMJyuWJElLCNxGTs8TCGeFCVhZG4UHcKjZMDkRHT0ZdSxKOEsEMLfhp2RPAIh FBLhAou5NPWjMUQgWNAlVPycIQKnTZEeJDOvIJKvKIYwDX8TVqAtZWAfICHxSRupHCDeGBSnzm4LUZLv AAEvOCK5RDHsYARoGKScCXdxUDWiECZ8HTZ7HJAqOQ GhKD3HHrSbLOCtVLY3CtMyHTMyMDOdel4HNQUsWISaCtG6BmHpWKIeLQIsSEoxKUFuRRP7IzBkCVHeQF BxVY8QYcRoHSNoQVh6CIrhLOBaHHGnco0NJXDhAAOpGYMjRBZwJNTcXCCtRZbbOXFjJLF3ETw2XIZmVK NpAL2EDhZrLNTlQUm9JCqtHMLiESYimk1CVTCdUMQi PKA4ZKXgRWGmAIMcIUegGBOcPSZoMcVqAFDiYPRlGL8SRiKnNTFpRaO6CTLkKUZmUQRtpq3IQUDpIRRr BZufESDyFMFeNIXxBWt8pwBunQDfGBf5MT2TH4WoauPwCaOOXv4Rt683TCA9OKDeQf4VY8qgIg8tBRRr TFJFQw3FBKg6A9ImX7HrEQZxHfjqHOLhBLSdELVsRv MwZDYyMmNhYjY+LTxaVlA1NzM0SYK8KHB7KUF3B4H1LFJ0BxTpHpTuR9QtIk6eFQBLCu5+DQpzdGFydH tlTIKHCaUiIQy0OVraKENZLg7X ID Date Data Source [id number] 09/29/2020 01:56:36 PM EDT [facility] Name Value Range Interpretation Code Description Data Cinthia rce(s) Supporting Document(s) Progress Notes [facility] GFZGEu3tIdWQTsWx66/WALtpJZUfw0JuUMfbIEx1MPhjYBUkB1WmSWO8eA3qQOR2YJhJTtWeQvNmDiT0 lbm RhCpbMTyFcPWHsXqbZLvPpVFahYarxsTHfUR2EcLE7PNSwD97wLODrATKmA4LoAIV8Pjs+Qv8XIXGcjR SzBV8MAgtO0Nlbcxl51B4C/qDaawMILwv9AqwwmvZtJ5CkkD0QX/iw7ZzPJ7gwjuEw/37ySReHnMZats 1odhSFQ4JSNEZ8jgqE/L/H5IGyVpkk+fPwsbKSfRyz a35yg2uPgPc6+mjfkYBRQ940Td9zMq7+4YXVbKtAk5tASk8SFCY8Zp8OVdoZp2iVyuxXJevBsGb/NHwz Hl610QnBHbuP7yg4yfPRvSAbTYnQzql5+Z4vBzj0ibNCDQjOuNVsALs06BPHftRSDNj10vYKeYBLcnkE S+2hCz+pAFOkyiH6eF8JxItBhIlir0tW1v9FVXCMCl iWCcSDTUwUrUQbOLuUnQV1RzzZVnnfCVOLeMowiADBHCiwTTPjamfEFMBvp8R9QGYDkBHitdcvc42svi Ko+PybYjhl5THtFcNG6jPwXM/iCIKqE9BUNNfIeC6M4nixw0j2JunFharBspz0+w0SDy6nz2zK13zK9 [file] ID Date Data Source [id number] 09/29/2020 01:12:38 PM EDT [facility] Name Value Range Interpretation Code Description Data Cinthia rce(s) Supporting Document(s) Progress Notes [facility] MZOJOy1kXnOEFzHg04/MOEgvUHHtz7PgZUyyUOw4TDrkONQdV3DlMLS7uB1tJOZ5KMyAVoLeBdSeIuD3 lbm [file] ICAgICAgICAgICAgICAgICAgICAgICAgICAgICAgIC AgICAgICAgICAgICAgICAgICAgICAgICAgICAgICAgICAgICAgICAgICANCiAgICAgICAgICAgICAgIC AgICAgICAgICAgICAgICAgICAgICAgICAgICAgICAgICAgICAgICAgICAgICAgICAgICAgICAgICAgIC AgICAgICAgICAgICAgICAgICAgICAgICANCiAgICAg ICAgICAgICAgICAgICAgICAgICAgICAgICAgICAgICAgICAgICAgICAgICAgICAgICAgICAgICAgICAg ICAgICAgICAgICAgICAgICAgICAgICAgICAgICAgICAgICANCiAgICAgICAgICAgICAgICAgICAgICAg ICAgICAgICAgICAgICAgICAgICAgICAgICAgICAgIC AgICAgICAgICAgICAgICAgICAgICAgICAgICAgICAgICAgICAgICAgICAgICANCiAgICAgICAgICAgIC AgICAgICAgICAgICAgICAgICAgICAgICAgICAgICAgICAgICAgICAgICAgICAgICAgICAgICAgICAgIC AgICAgICAgICAgICAgICAgICAgICAgICAgICANCiAg ICAgICAgICAgICAgICAgICAgICAgICAgICAgICAgICAgICAgICAgICAgICAgICAgICAgICAgICAgICAg ICAgICAgICAgICAgICAgICAgICAgICAgICAgICAgICAgICAgICANCiAgICAgICAgICAgICAgICAgICAg ICAgICAgICAgICAgICAgICAgICAgICAgICAgICAgIC AgICAgICAgICAgICAgICAgICAgICAgICAgICAgICAgICAgICAgICAgICAgICAgICANCiAgICAgICAgIC AgICAgICAgICAgICAgICAgICAgICAgICAgICAgICAgICAgICAgICAgICAgICAgICAgICAgICAgICAgIC AgICAgICAgICAgICAgICAgICAgICAgICAgICAgICAN CiAgICAgICAgICAgICAgICAgICAgICAgICAgICAgICAgICAgICAgICAgICAgICAgICAgICAgICAgICAg ICAgICAgICAgICAgICAgICAgICAgICAgICAgICAgICAgICAgICAgICANCiAgICAgICAgICAgICAgICAg ICAgICAgICAgICAgICAgICAgICAgICAgICAgICAgIC AgICAgICAgICAgICAgICAgICAgICAgICAgICAgICAgICAgICAgICAgICAgICAgICAgICANCjw/eHBhY2 afmZWgpmP6F1ylXk1FIu4IFP3yx0UxZGRhKDvbajYdLyaVRdSkLLAzZvlQFos6XMiqFP8GvKOpH2KsG2 PxGKjrVC1RSOAnVMGplDMvNSWfONPoHbL9CYMdNWxq JX9SiBShNJocMSHjISHdVG0FLDXgD475fbYqHL3UGb0HUlJzYJ8ijq4ILpAyGTFzWzgESjc1KGyqRP2Y sFGdwVLkBuWsHCHRNqXiC8obg8YbVsBaGXODVFjwGJ7Al2OxxDHoFPc+Vo0GRZ4rc1QvIVxjNiNwSV3w zx5ONYyRJqGuQ7FrtLdhQJXki4tsVPPfGM8ypTBwMG G2TAhgzzGzVUKuzBFkKCHzLo26RiPaDjXhUOU3UWizKO9qVMgoZP4UUHB6CTuxRGCkMZBrC2tZYuRbVP dsIRJdwCldDK4GTkAgO4LkhwHdqDIjSPLhXOHCAq9+IQnyzsZtGeaMIoU0HVMbd3EjEBx3IM7XWRGhNE blMT7LBIPzyT8kEYtpLX5WJzEvWgDmJAKEGbWpA20a cIEfUKl2C2SsXeEyDAUbGlkvYSXjXOdfSzYcHUMpMsKuYQqoYT0+ID4+GPfePG1ENXgufsEuJIHqFv8G RALrEAAzOT5pAVBrZBAlZ8K3qNegATZCReAvA1kjwaxwYC8bRGFuR566zXbnbhLuTDM7STAlPi7BCMIc VPZ5EGGlfUQpNtUwWDXRARejLT3MpJVxDJT0aM9bGD kyZGXuPUOjD6tHCoMobGlbDC44lKbadzSlcHGdXTq+Jh7ZUG0rt9ViTKa7ujWwARvjSSH7EHrrNYObUO WwSBBiFPQ3HNK3HRURQoHmPLJaARXxXVdpYMShZCZmgh8ZJOAeQSToFKDcLjKrVZCiHSHaEDajEIEeEB JoIKJrDLPqHHRwOZ4CUkYaWSHkAGSnPMjkEPKhNDVo ix4FZNTqFMGqEMGbTeOmSEDyYDQjUGamVJIqXBJfLnU9QWDrKUEzTS9LYoOaBMCnYNI1DZCzCFYzFUCs xb5PSVPsRXFpMbr7UrTbXOBaMWFrUBmuCEStHMRzCCjnIXXdJDEaCI5ZQuGpBQDfXACrDDWwGOAeYUZn fs3QVGWhJLFwBRDiQgErOJGyBSSyRLlkKCUpXPQ6DH K7CCAqVNMxLC6LBwAcBZXcBFI0CbxkHXHuJBKrbz6CUDXqBJSrPvG7OBUyYKTrONZlXDwwOSLrPJF3Lo jmMATpJSTsKB3OFaOaVFPqYQl1ErHjDHQcDVYaxk0AQDReYAEePhA6RXRsKHKyTTClDBhzUTXsMCO3Np OnXIZfBAQkZS8WMjCfCQSzDZl6CBCcRYMdBRXrqg2K HHCcVFXsYBt0FKZdVJJcIRWpMKipEBLzBRV9TONsRNElOALkBH7MNcLdOUZqThBnRRzcFMZhCCDzpp7V VEYfDZNbIAM2YQWiRKVhDTRyCBtlJDIpJCQePhJcPQKxRSNdUP0TRaOmAJXjBcOjEfIyMYDsGHIlkw4I MDAwMDAyMjIzMiAwMDAwMCBuDQowMDAwMDIyMzcyID LkLTSrNW4LRxWuQZmyCJATGvy5BKjwG4c7EYUgCH9VU7Nbu3PmMwigOKWUVDqcIQ9ygcKxYLCxPa5UT1 pQIzacOWK0P4G9G0FhGROpB0BvWLBnFLX8FCBrQPG7DdTiYG0fUPB7XsbrJtVlPrSzMQC5WRTdTSY6Fd tyCnEyLNe7XVY4RtNcLB8KEp1TPbT1HJZ0uCQjYs0NIuR0OSZVUgOfGA8DGYv= ID Date Data Source [id number] 09/29/2020 11:46:03 AM EDT [facility] Name Value Range Interpretation Code Description Data Cinthia rce(s) Supporting Document(s) Care Plan [facility] MUXXFs3zLxFAPqIe40/PXLbiDUKoa7NtSUniWSk2VIxwNMEbL4FlQOR5lK5yOOS4EWwUHcWoNlWoIoD0 lbm [file] AgICAgICAgICAgICAgICAgICAgICAgICAgICAgICAg ICAgICAgICAgICAgICAgICAgICAgICAgICAgICAgDQogICAgICAgICAgICAgICAgICAgICAgICAgICAg ICAgICAgICAgICAgICAgICAgICAgICAgICAgICAgICAgICAgICAgICAgICAgICAgICAgICAgICAgICAg ICAgICAgICAgICAgDQogICAgICAgICAgICAgICAgIC AgICAgICAgICAgICAgICAgICAgICAgICAgICAgICAgICAgICAgICAgICAgICAgICAgICAgICAgICAgIC AgICAgICAgICAgICAgICAgICAgICAgDQogICAgICAgICAgICAgICAgICAgICAgICAgICAgICAgICAgIC AgICAgICAgICAgICAgICAgICAgICAgICAgICAgICAg ICAgICAgICAgICAgICAgICAgICAgICAgICAgICAgICAgDQogICAgICAgICAgICAgICAgICAgICAgICAg ICAgICAgICAgICAgICAgICAgICAgICAgICAgICAgICAgICAgICAgICAgICAgICAgICAgICAgICAgICAg ICAgICAgICAgICAgICAgDQogICAgICAgICAgICAgIC AgICAgICAgICAgICAgICAgICAgICAgICAgICAgICAgICAgICAgICAgICAgICAgICAgICAgICAgICAgIC AgICAgICAgICAgICAgICAgICAgICAgICAgDQogICAgICAgICAgICAgICAgICAgICAgICAgICAgICAgIC AgICAgICAgICAgICAgICAgICAgICAgICAgICAgICAg ICAgICAgICAgICAgICAgICAgICAgICAgICAgICAgICAgICAgDQogICAgICAgICAgICAgICAgICAgICAg ICAgICAgICAgICAgICAgICAgICAgICAgICAgICAgICAgICAgICAgICAgICAgICAgICAgICAgICAgICAg ICAgICAgICAgICAgICAgICAgDQogICAgICAgICAgIC AgICAgICAgICAgICAgICAgICAgICAgICAgICAgICAgICAgICAgICAgICAgICAgICAgICAgICAgICAgIC AgICAgICAgICAgICAgICAgICAgICAgICAgICAgDQogICAgICAgICAgICAgICAgICAgICAgICAgICAgIC AgICAgICAgICAgICAgICAgICAgICAgICAgICAgICAg BQSjDQJhHDLsEJTdACUmLLLeITTmXFQlJDAzTAVfRCUwRGXiDMIyJEq5N8ezAIQhWJTcUT4hJYv0Np3+ RGfDGpZtZVK9khHdsD3MFN8kx4BvGXwkNQAlc0MbDTn4FY4AHFUcCMnsQE3MNRoqqe7ONFUhJGNalFDW d3piQdBtYNH8BFOgUgbgYY6YRTSrI0zoujDkUOKpYJ IQCS6GLeJmI3PyvV23CXEIXh1+EInssyMiDtoIZpPiPICna5BtQUx1KG0GDXYzHxlrk4HsKvQySBRFQB iiNF9MDLK1DLUnLVKgUh8DHJZhL121pdPfMA1XQi6VZlAiPT7trq0HLnTiHLLnRlzIMzd4JUnbEI3UyE DsJMyPFZThXGUaWQ8pYlpyGXIycTAvRNGBv6S5LPMo EQLVNLR1RNKzVu6xPRNoTECtUzH1VBLKPA0ULLJvFHZrxILdVCNtRUEYDL0ZEDmzVKK4ErqyyjXyoCNo FUkkTA8NAJNcboUoWhBiFXTJDKs+Il5SOZ6tj8MwLFedJDDuVQ1yrq8IMNeEHgMlS1Z2vLCkS1V7KUmz Dm6MHERfMCIsPiThMULINDkjWP0KXN1eqrG2BA8YvU KgLPMnLCWweTUaJZa1N60guMClYUukQA1QDVT+Simin+Lz9LWEOhMAEuTIXwLhGcYTFZWdJwO1XaN6KFk3 DlV9QqWK51fEiwfoImSSssXZ9BIN6mATFdLTOVFG7DwWWjxE8qmiExQkSgNBJYCkIxB56qzTQlTMPmHR WtHPXqRp5IFJUcY4PqdsLctEcexqBjJHIpFYSGYE0M QQmoaiEbuILfwPyrAC28cUafLI3WUw4IZzGsQZ0tzu1ZvIHyYa5KMFIeHU7UVFUpWEQxUAOcKGE9ZISy GmNhPNucNVBbCARjBUM6AJUjWGUuUH4ETfYzRQRyVRmvNUasFSYbHCUvuw3LNUFtAKLvZNA1CBZzZCVf JIPoOWmaJGWaWUMgXMX2QFIeDLQpUM1LNsSxQLYbBY S0JmghOEKuMPBfbo8TDFVoTMRiWKO3FcPiENQqHYHoXKfkYQPpMDVbJTZkTCFkQVIxNE5NQtGvLFNoOL GnUTQqSOUtPXJmgx8YXFJwGCVvVyPsJyDyQSQvGETyXBbhMLGyERFfYfz2JGCaLAVdDS2YKwVqEHItBE M6RIQwMEPiZORyex3DZUCoIXEeJsd5OULzHIEcHLIs JFqhYUGuVGS9WZU2BKOgYZQsNF5EXlXtWLRrTMQ9CrYaMASjGZYxnp5GNEHrFGWtYsKoVFYyVTCqLNTk TFfuXZEuXFA0SOn5TTEcHBByTP4KPxBrHJKhCNxxJcQfMUQuUPVcrm3TIOLrCWLeJmg1DhIwYKIcVZDl ZKoxMPPyOQN7JYMySHMkAMZkLE7PQcHcJEVvSZdhPq NvTMInGOBrlu9CKTMiJLTkMOv8CQFcPKRiSVKaERwjCJDeRRHaTWb3QPAzRHYpCN6VRhYbCOUtKfVnAW QdVNIrMNLtfo7YJXWsNOGhYUH2FrWkREFqXQMxQBp2szMylCIeGKk2EC3FJ7QjszByPbITWg2Bi022PU X1BCUnAg0EQ0rfNd2fLCZoRIDKAj4QMIl7GJIjWFJu J1RfPHGdTQUmTqjqHXqeSEq5WzroATHrPNS+GBshAHK1QVWyMpRfXhKxRYI3A7YvATIvCBC7PYD0QWVp If6lCBJGZv3+NJrjfTMfaTuePHKMCxYeEjW9NGydCWYBBw5V ID Date Data Source [id number] 09/29/2020 10:40:04 AM EDT [facility] Name Value Range Interpretation Code Description Data Cinthia rce(s) Supporting Document(s) Discharge Summary [facility] LDIPUb8nTgZLCkJl37/NKQspYTSgx4UfQDtsJIm8RVwmAEZqO9KbNHK7mJ5fVJP5CBdPBaQkNjXkMuQ1 lbm [file] HlMbQF8PTq7YJmC2YWR0nVDcHd0KDoM8MJOCOvBjZI5QKAe= ID Date Data Source [id number] 09/29/2020 09:37:27 AM EDT [facility] Name Value Range Interpretation Code Description Data Cinthia rce(s) Supporting Document(s) Care Plan [facility] IGUAKg0bHhOKOqWo80/GQHkoNVSjd0HgNOzeIVv5LQdlKICuH2HpPBM9nM6vWBA6ORbKFyDlIiRpPvU5 lbm [file] AgICAgICAgICAgICAgICAgICAgICAgICAgICAgICAgICAgICAgICAgICAgICAgICAgICAgICAgICAgIC AgICAgICAgICAgICAgICAgDQogICAgICAgICAgICAgICAgICAgICAgICAgICAgICAgICAgICAgICAgIC AgICAgICAgICAgICAgICAgICAgICAgICAgICAgICAg ICAgICAgICAgICAgICAgICAgICAgICAgICAgDQogICAgICAgICAgICAgICAgICAgICAgICAgICAgICAg ICAgICAgICAgICAgICAgICAgICAgICAgICAgICAgICAgICAgICAgICAgICAgICAgICAgICAgICAgICAg ICAgICAgICAgDQogICAgICAgICAgICAgICAgICAgIC AgICAgICAgICAgICAgICAgICAgICAgICAgICAgICAgICAgICAgICAgICAgICAgICAgICAgICAgICAgIC AgICAgICAgICAgICAgICAgICAgDQogICAgICAgICAgICAgICAgICAgICAgICAgICAgICAgICAgICAgIC AgICAgICAgICAgICAgICAgICAgICAgICAgICAgICAg ICAgICAgICAgICAgICAgICAgICAgICAgICAgICAgDQogICAgICAgICAgICAgICAgICAgICAgICAgICAg ICAgICAgICAgICAgICAgICAgICAgICAgICAgICAgICAgICAgICAgICAgICAgICAgICAgICAgICAgICAg ICAgICAgICAgICAgDQogICAgICAgICAgICAgICAgIC AgICAgICAgICAgICAgICAgICAgICAgICAgICAgICAgICAgICAgICAgICAgICAgICAgICAgICAgICAgIC AgICAgICAgICAgICAgICAgICAgICAgDQogICAgICAgICAgICAgICAgICAgICAgICAgICAgICAgICAgIC AgICAgICAgICAgICAgICAgICAgICAgICAgICAgICAg ICAgICAgICAgICAgICAgICAgICAgICAgICAgICAgICAgDQogICAgICAgICAgICAgICAgICAgICAgICAg ICAgICAgICAgICAgICAgICAgICAgICAgICAgICAgICAgICAgICAgICAgICAgICAgICAgICAgICAgICAg ICAgICAgICAgICAgICAgDQogICAgICAgICAgICAgIC AgICAgICAgICAgICAgICAgICAgICAgICAgICAgICAgICAgICAgICAgICAgICAgICAgICAgICAgICAgIC XxPSEiFXIfKCUqCOHdERHlCEWbBVRqDJNdERd5F8adVMUaRUBdNG0iJXf8Zb9+ZVhFGmAvFHC3zeExcF 5MXL1dc6BcGGelCMCep5GsWZd2GM7IZOWmVBzaKC3U DLdblo4BAWVdOXEtkEDQs9qhFgJyGSB7IEOvKfaaZE1JUUBgD4fwwmEwIYPiSTSDTV4JXsNuJ3QhfV96 IDENCj4+SDjeujOoIlvCFoU3GWPlr9YfUGu8BW3KLOAhPkyrd8KjLzEoDEZZNChpRP1EZIK7QOE2YXYr Py4GKOBhM431ciClFX3SPs5CDkIcWW7uow4RBiAyPK UsBgeYZxg6XRiuCM0VdCDsBGoQJYHtQMYdCO5cWyjaSTRxbHKnXHLBi8M7AAJwRFVKDJA9YIOdNb8tZX KxOSM0XfH2JNHRTC6GSILwZXQesJZoAZRhGXWKDS2JXLojKHF9ToppvcLydEIgNPiaZX2TZFMysbYiGy UgMCBSDQo+Oi5PVU7iv3LpDSvbHkQqAX5xsa9YQLzP LdQyS6C2jUInC9Z9JVrnPk7RNITxRPCqAbOmWPZZQKbvNP7ZOG6iokI6VH6HpKPgBILuILBqhVIjFQk6 K89phJAgPJzaZT6MLDX+Simin+Ss8ZKTWtPOQbFEQgAmHoAEPKWgZmA7QeP0OPv6JrY8ZzRA67nYkxerXd YUdsBG0CCG5uBQTjUVQPBQ3FtGMkoS6mwpSsVPCnRR KDNlEaT31oeNWjAVUsPYS7ZTSgEj7NNFDmQ8PiccAvqMpeuqGeSQKqZYAGXY0CEDvgzhKobGQltZnwNY 61hVeoGF9QHe0JYyIdXF1djs8EpEImYs7QAUIaJM3UTVGwHDWpKRJoMIO3YSHwQdEhKYtoGJUdXQPvXZ B3MGHjWQFqWL6YQyUoHYPrYbY4ERKtWSIqECYtof0I AQZaBACxJaIhTFYpIQLbLBFbUGtuBMSyKXSlYUP6TPBiRNXjQP2XElCiGOZiJQF5FLBtOSLfSGPvnj5A UZBfOWMySfH9AANtYRNbABGnTVujFFBbSREwWNV9DVGcYHNpLY2MIaJnBZQyIGCnQJynSFNwBVEvsj8G RYPmEWLpEwDyBVJmMIAtYAXyQUrhYDJlPYX5DqDcTQ VyMDAbRQ5WCvMgRVBcASL0JpVbMAThZNNwok4NDDWgXNUdWHc4UyMgZZLmEWDkFYucFLHcMEE7XRkjKU VtOUOpXR2XHaTpGKIqHQc0GOpoVTMkMDSzmo0FRPHlWGAgZkGqVjRlBPZaMNCdEWiaMYDgUYR6BZK1YW NoGYRlIW5UKkHaUEIdYAarEQFgVJDlJNXdvu3JMOLf WXRzMBq3HTHhMDAkIHNlDFdtHRGbMQO7YPNrQZCjFCQxWT7WLzXdBIZwPFjmXzohYOUiWURjuh4TZMXd SJZxVVN7VXWdPBTzFJQhBJfrZETiNYRzSQX1NVKdIKUiST2LVpXbCQRkLeY9ZtpvUMClQVBwcn2FLHWu BLUkVTL9YUTcGMUcRIIdEWxpHDZtVKAeBZc2ZZDjFF JwJX3KMzBnTNHtBqK6EpaqQEAjTZOdgw0PDPSjPUMkRecbWiBwOTYdDKFnWXk4wyZoqDQbDJp0RK6XZ6 HysxVaKbtNCv9Me544JDR3KQNrYz5OJ1ahPu3aFMMhOGQZXw0YPFg6EXWqSfl2X0B5NCNrWRFmF0DrFS M4PFTpUrf0OLHzGen+QZnuXFXxLMgcTHN5FUQsQcBd IfD3XzAnCfYuNSQgLnExUJ8pSQNENe8+IBnhkHAvbXbzXYWWXpGiLXV4GUlcDKGRYp3N ID Date Data Source [id number] 09/28/2020 10:13:22 PM EDT [facility] Name Value Range Interpretation Code Description Data Cinthia rce(s) Supporting Document(s) Nursing Note [facility] UILTBc0iOrKKRePy78/LMQejARIiz2BsMKlyLPf6LRnaUKJeI9SqPAA0lR6yOTT9HLsBTbYbDiArObV0 lbm [file] XCCqJuMyLUnsUY4oRCVLEg1+QHvgfLWyhPdjXZGWVkYvZdW0AJgcIYPPBk2W ID Date Data Source [id number] 09/28/2020 09:19:09 PM EDT [facility] Name Value Range Interpretation Code Description Data Cinthia rce(s) Supporting Document(s) Care Plan [facility] GJVBGi9vXrYZDjAg18/IJVnfQOQun6GrRShuAJp8DEbmZKJwH1PsQXY5tW9rOLQ6OWwSSuUaJtNlXkM5 lbm [file] z9tXnlF2xWii8Ep3jSzVMATSEXD4epW+vázquez+QJJ21Jj/9EvOsmzb7ce+ruzev41mnmyvgsum8vdnpQPEm [file] ICAgICAgICAgICAgICAgICAgICAgICAgICAgICAgICAgICAgICAgICAgICAgICAgICAgICAgICAgICAg ICAgICAgICAgICANCiAgICAgICAgICAgICAgICAgIC AgICAgICAgICAgICAgICAgICAgICAgICAgICAgICAgICAgICAgICAgICAgICAgICAgICAgICAgICAgIC AgICAgICAgICAgICAgICAgICAgICANCiAgICAgICAgICAgICAgICAgICAgICAgICAgICAgICAgICAgIC AgICAgICAgICAgICAgICAgICAgICAgICAgICAgICAg ICAgICAgICAgICAgICAgICAgICAgICAgICAgICAgICANCiAgICAgICAgICAgICAgICAgICAgICAgICAg ICAgICAgICAgICAgICAgICAgICAgICAgICAgICAgICAgICAgICAgICAgICAgICAgICAgICAgICAgICAg ICAgICAgICAgICAgICANCiAgICAgICAgICAgICAgIC AgICAgICAgICAgICAgICAgICAgICAgICAgICAgICAgICAgICAgICAgICAgICAgICAgICAgICAgICAgIC AgICAgICAgICAgICAgICAgICAgICAgICANCiAgICAgICAgICAgICAgICAgICAgICAgICAgICAgICAgIC AgICAgICAgICAgICAgICAgICAgICAgICAgICAgICAg ICAgICAgICAgICAgICAgICAgICAgICAgICAgICAgICAgICANCiAgICAgICAgICAgICAgICAgICAgICAg ICAgICAgICAgICAgICAgICAgICAgICAgICAgICAgICAgICAgICAgICAgICAgICAgICAgICAgICAgICAg ICAgICAgICAgICAgICAgICANCiAgICAgICAgICAgIC AgICAgICAgICAgICAgICAgICAgICAgICAgICAgICAgICAgICAgICAgICAgICAgICAgICAgICAgICAgIC AgICAgICAgICAgICAgICAgICAgICAgICAgICANCiAgICAgICAgICAgICAgICAgICAgICAgICAgICAgIC AgICAgICAgICAgICAgICAgICAgICAgICAgICAgICAg ICAgICAgICAgICAgICAgICAgICAgICAgICAgICAgICAgICAgICANCiAgICAgICAgICAgICAgICAgICAg ICAgICAgICAgICAgICAgICAgICAgICAgICAgICAgICAgICAgICAgICAgICAgICAgICAgICAgICAgICAg ICAgICAgICAgICAgICAgICAgICANCjw/dJQyB5fhyU NfzfN1M5luTd5PKu0FEA5rw4GtIQLkYCsjydXsQeoCCvIjZYWwSilEZkr5DKdaVP6OiFSeL5KaI2OwJC laPF9SXIRhQUWsfYVvQRFkZOKiEdE3GLMrHAocNE3CfQHcNDfgVMRlSZEkVzZrULWxNWZbQFQpKECzBJ OZSAFmBNNlUqNlHApaGM7Nu5NkhHP7SDs+Dm8MIS7o c2MqJGtaSfYmWC5txw5CNGjJGsKrX6KnhjL4OZN8TVCzBf2QTBAqERPwkMLeWHUiWEEKAgIfN8JdyL35 IDENCj4+KIzmbmDnFgkFIvV9NIIjf1BgWAv5WH6TUDSuWHf8qSMeJ4HsGIGYiWVdXKG5LIFxPambKWXd iHtziP9wTLFJLMR4IWOpZh8sQJStPHU7WrY8BNLXEH 8WZGGyJATeuESkXMYrLVUHVJ9XSFdzTPO8DbhgscEfqMNhVTzvSA2PMORbsyZkIgQwCFZQURi+Pg0KZW 8my0CjADbrGOGqDO4dpx3UZEqTQqYnU0G9lXWiZ4J2IZkjPt0KDYWwCBOxGpEgQJIEPDrgKK1BCA7kno J7RY7JbPPwYJSoMGGnrVDcXTp5T09zhIQdRXthCZ0W ICA+Simin+Op6DILDsYGHrMWUeOhFcMTUOUdAuJ4GtB1DGl9NjU2MdMG35aJqropEbKWqiNE1HLF1uBGXy SUYFLW0ReQIzuD8ikrFsBhXvLKGAUuShT85rgFTpMKZrUUAvNTOsLy7KBUUcO0EmoeRrbNokegKsMSCs AUZNAE9PGAnmcgObvMAstPbkKO27nAbpRU5OMw9BBz UaRK9tvg0IjZBmMj4XDVLpUz0RILYuQWArWTVbPSC8ACElJxQzSForHEJbOBWvBWK2SPGdHFLqJI4MYv FhFYWoKhjpLxJjXUMmRVYkup8SLIAfWOMxBIg8RpLfIQBkJDArMKtyFTRuLSFrYBF2AFDgGFMmOD5IFw PuTTBtTUYuQuycSYPvDPHshp4YQSLiEBXvQbM5AVIi ATLcLVXhTOxmYFAsVBQ6GKm0RWJvZRHtMF9TKhKkMYPyZXG4MIzvDRIvCRSlje4AONUoYVSjUlIaPQGt LNFnTUBzSBoaJZJkMRX6FeY9SZPwPTLwPS2NAgWzMTHcAIpoGkMaFSNqCYNznx8FUQFvSLJdHWOdMzQf QDZdAFEzTKiaRQJaQGQjKoNvEORdEHVsDL4ILuKuRX LyJEC5DkuwPGMyKGZntz3FCXNkXTKbPBM4TYDtANUvDGGoCClbDGOiZSWsQcAoYYKpYHLbNY5MNzBxMH WuIFD9ADxfSTTdLZFlli1NOPKiMCUzQri9WHOpRZQjMZUvICrzIEAbVPYeOSB9QWXaEOStWC0TCsOeGV AxSCGwPdbyKXHpJYQoyy7FRFRsWHIcZBT3WfItCURa MQAzEYwkWHVxCST1WodzPELnAFJnED0ELvOhBYKxPaRbNWDhHDYdWVEril5OFKIgTMOtYdC6ShYsEIWs SAMnBYlqAWDhCUT0Drw6LJPtLSDjQD5KPfKoHHOoNuwlNrXrYAUhHXDicb5KJZLqGXKuMxFsMTKpAILp JVUxUMtlYYDpYRD0TkY6BDXjEFXeSG9KQyOkWCOnPc z4TNSlSMKaVCNlva8RGNXrTNPyLSr4KXNoQUZiQXIhROhzIUJeVFG0DHI1GMDfRTSmLV3XBaBhWPEtXf x5OLqtRIKqIEZjtk2WXDLbSAOaEUzoRXXnYLKoOUSeJHhoENLbNFPbBFntHAGjTMDwBJ4CDeOhCVPsWl ZjYbUjJGRwQCGuhu1NdTXtqLhreg4NOSlCYi2ZtNlp YMB7FRwpXq8daLDcLJClPQITVc4CfhTlPDBmSCEEDTlrKWMzWBBzIYb9GoU2JGJsR8PqXyMvNVpmPZO5 BZUbDQG5IXFaCwW6IlF9NXwxVBogDPX4IlCvNVJiFPWkJQe0IHD9SeE1SWO+FQ9sBVl+Sf3Ji3DmciB7 ieUqARpaFIY3TP1RVYSLG3PTQz== ID Date Data Source [id number] 09/28/2020 07:11:44 PM EDT [facility] Name Value Range Interpretation Code Description Data Cinthia rce(s) Supporting Document(s) Progress Notes [facility] GOFWIo6cSsAVIgVt58/DTVhcVOZcl7OjSZgkDQb4CApuDROnO5HxKST6cQ6oLLK9YKdHSsQtTeJnEvW3 lbm [file] QhCQG7AmS4PlZ1DZQtTZOoVEA7RGJ4Xp1jWJOEYt5+QSnzvHDblNmoKTSQFyG8Bgt4JLmrODQAGp6V ID Date Data Source [id number] 09/28/2020 06:08:33 PM EDT [facility] Name Value Range Interpretation Code Description Data Cinthia rce(s) Supporting Document(s) Nursing Note [facility] KFXTCk1iJgBEJgPy75/DVNsfEGPgc1YqBDyzLQj3ZXjxWJAyJ6NeLKF6gQ0qKMB4OWdFZsGfCyHlPqE0 lbm [file] BwN8RpTvZF2KQy1WMcI0HTA0aMHoHt4CDgX8ENwAXaVyAN3ZTXs= ID Date Data Source [id number] 09/28/2020 01:23:04 PM EDT [facility] Name Value Range Interpretation Code Description Data Cinthia rce(s) Supporting Document(s) Treatment Plan [facility] BJNAXj2aIoGSCpKd86/TPRquEDEwx3GkJFrxYNz1XDmdCWFzV2GyOOO3sU4vETS6UWhHEoWwEfFlRmK5 lbm [file] ID Date Data Source [id number] 09/28/2020 12:57:28 PM EDT [facility] Name Value Range Interpretation Code Description Data Cinthia rce(s) Supporting Document(s) Care Plan [facility] WACISi7rHiMGZsFn13/EAVnrLNHnp0PwTSliXKf0EZghMKYvK6QmABR1eG7dYXP5DAtDUjLpWlQjVrO7 lbm [file] CzXuAFfvXWHJGp4C ID Date Data Source [id number] 09/28/2020 01:24:31 AM EDT [facility] Name Value Range Interpretation Code Description Data Cinthia rce(s) Supporting Document(s) Nursing Note [facility] MDIGCx1oRqWFUdKo67/OURdtIZLtw2TpIEydWGj3BAwxCQOfR0IvBLH9nI6qUQH7HIsXJdQqReFuCbX2 lbm [file] FkVaViVg5iWNEJGx6+GBojfHEzqDlqUKQUMzEfVNR1NTnbZHVEMj7I ID Date Data Source [id number] 09/27/2020 08:05:40 PM EDT [facility] Name Value Range Interpretation Code Description Data Cinthia rce(s) Supporting Document(s) Care Plan [facility] IVYAYf3qWcIHRsDj23/NRDvcVHMtq4UaEJfrOGm3GJsgNOVuP0NkBND8dW3aKBJ9TEaCKbNoDfWjWxA3 lbm [file] ICAgICAgICAgICAgICAgICAgICAgICAgICAgICAgICAgICAgICAgICAgICAgICAgICAgICAgICAgICAg ICAgICAgICAgICAgICAgICAgICAgICAgICAgICAgIC AgICAgICAgDQogICAgICAgICAgICAgICAgICAgICAgICAgICAgICAgICAgICAgICAgICAgICAgICAgIC AgICAgICAgICAgICAgICAgICAgICAgICAgICAgICAgICAgICAgICAgICAgICAgICAgDQogICAgICAgIC AgICAgICAgICAgICAgICAgICAgICAgICAgICAgICAg ICAgICAgICAgICAgICAgICAgICAgICAgICAgICAgICAgICAgICAgICAgICAgICAgICAgICAgICAgICAg DQogICAgICAgICAgICAgICAgICAgICAgICAgICAgICAgICAgICAgICAgICAgICAgICAgICAgICAgICAg ICAgICAgICAgICAgICAgICAgICAgICAgICAgICAgIC AgICAgICAgICAgDQogICAgICAgICAgICAgICAgICAgICAgICAgICAgICAgICAgICAgICAgICAgICAgIC AgICAgICAgICAgICAgICAgICAgICAgICAgICAgICAgICAgICAgICAgICAgICAgICAgICAgDQogICAgIC AgICAgICAgICAgICAgICAgICAgICAgICAgICAgICAg ICAgICAgICAgICAgICAgICAgICAgICAgICAgICAgICAgICAgICAgICAgICAgICAgICAgICAgICAgICAg ICAgDQogICAgICAgICAgICAgICAgICAgICAgICAgICAgICAgICAgICAgICAgICAgICAgICAgICAgICAg ICAgICAgICAgICAgICAgICAgICAgICAgICAgICAgIC AgICAgICAgICAgICAgDQogICAgICAgICAgICAgICAgICAgICAgICAgICAgICAgICAgICAgICAgICAgIC AgICAgICAgICAgICAgICAgICAgICAgICAgICAgICAgICAgICAgICAgICAgICAgICAgICAgICAgDQogIC AgICAgICAgICAgICAgICAgICAgICAgICAgICAgICAg ICAgICAgICAgICAgICAgICAgICAgICAgICAgICAgICAgICAgICAgICAgICAgICAgICAgICAgICAgICAg ICAgICAgDQogICAgICAgICAgICAgICAgICAgICAgICAgICAgICAgICAgICAgICAgICAgICAgICAgICAg ICAgICAgICAgICAgICAgICAgICAgICAgICAgICAgIC MlATAzLZUnKHOsARBoGQIyZEi8L8caORWpRNEzJX5iJRk8Jy2+KHuLKwRwNDT4bvUrnP8YYP1xk9JgRW diZDQam0NnFCr6VA5RWDHdTNzcUT6DCGzvkh9OPGUlYVGhhDTTx9wwNpUcLXQ7WSQqEsdpCO9MHNYsZ6 lkcyBbIDUgMCBSIDcgMCBSIDkgMCBSIDExIDAgUiBd EEprJV2Tt5UmaTO3UKo+Mj2ZIP0zb1OkNPwpGCNvQX4ktx2RMAlANpXvO8ZpitN5JBFzPVEvUn9VQGKk ZNJbvAJeHzJlMKJRUwXfT7LzcI13WVBAHy3+RFrfgcBxJhyDZfEuZNEyw1AvKRm7GV1ICMLlWDs5mCKi C7XlMCLYgUThNEG8XXPbPOnpAUYHCL5himViKUGEKq NevVN8VrImAwLcAMDqGLwlQLIFVQgJWtOmP0Lue4NlEpH6ZKLmAdMhBPerQIYiAaZ6YL71iEkfVR1ICY JyILKmBH87VVAzNNPsDd0CCh3OYqYqXA8pym4WNwIwUPXdOjyJGrj1POwhOB3AuQWrU0WtwKFpl1qMDe LzT8FRIBI7LJMxAn9KWJYyIfByWOVyEMmtVV4aZJXh UUCPwVjxdiN4LI2OEU4szyBpKD9TNqSaLf1zAi6EChNcY5MyE0EuZAHtDKFQFVldXR3RFPsbQB8mAM9U f3EEcVKflK1yph6SIFFmDWAkFbmzzh0FAconM8G2eUntJMIvWqMzDEAPQYseHC2RQZAxVOE3MNAcAOHd FCZGWkRfD19zUZ0YP1Arh64sJhP5JYEyCvZrAHxdKH 83uEzfphQhcNPwcUvtRZ3JQm2+OBsftsGpRvpGDkmlTZMAJaOdVdUNRyBxQZXlTXYfUBKvSfF1MdOjBo 3QLCQcIQReORQxPzIuORKaVORjYLmoVUFlUNP6OQJvABUnONTvIE1FLxBlYIHeSte6PQPsYDAqCPMdgu 4IVQAmLUUhNOB3FxGpLDGrJJYwOImuXHFpOJJyVPQl XBIzWFTsVZ4FJvYqGPBcVTMqUSShFEReYKVsss5URKWhGITnRFU0PVDhECHxLQUhUQvzPCWyTLZ4IdKc SQNqVZApME9ZXlNzLXBeNJC3DgWpHTLzTVHaxs7SIMZiNKByDxb8GIVbOBCrLIFvXJqeBOQiWBZ3BMD4 TXHpSIMsCI1DCxKmTTNhYTjaPNAsBCKnQKUlgu7DPM BlGDMeODWiNWMkESNuYTJfKXtpEWNbANWsTXF5ZWCwQYFaSY0FObRfYVJcLNX1TBHsYIFxGOOuqv3IZS LlNDDnJTB5IUWnVLQaDWAjCShhPRUePOWbDlPsNJKqNQGtFI7HTzTvQXHuXOE2LGWfCHArWFGneg7AFG YmNYEpXVA9MuYwDKCdNVPtDNyuXMDbFFS1DsP5LXRh LCPwBC4EAwReGDZnXgH5UXdmAMGnVDArtt8TXAHwUSFfPVC8BFOvMHWdYURsLAogCQSmKTU1DyU9HTWr NNUfUE5NJsTpJUHnCsMgVUYtTUZpUDPehq8DUFFuEZYfVeD4USCvXTHgETJuGFbvWETwXDR4AHTrNTCi HNCcLH9PHwBhRSDsKnh6SdCyEUErEOIvmp5MYBSuTT UdTiS4QbFqBMQlXGSsFKzgWDHeHFX8JMPsUPGzUQNtFX8FMlEzGDTtRaxeLsZsTOZqIPYisd8OSPSfVB NwIGstUDXzVHEgIMScKImuTTJeSGG5IbrmYLLzSSZkPM0VVrKuMYCoDlr5QoCeZHFxQJLkgy7CfXKfuI rbki0CZPhZKd6VtAsyXSQ9HIoxTr1nzIImHpIyNWJD Qn2TrpVfTEHtWLNXIJwlRKQnCGNcBcQ9YPudQUCuJvG8XBvsZgA8WjOePln1KAchAcS4MaF5ASCqATi5 FAF2FIR2TbfmWBQ2IbVpObJrPCl0EHD0QAY+XO1aWIk+Fz7Mq6QvysY7hiYdDKcjRLY7IS2URFLLB3FL Cg== ID Date Data Source [id number] 09/27/2020 07:13:28 PM EDT [facility] Name Value Range Interpretation Code Description Data [place]inthia rce(s) Supporting Document(s) Care Plan [facility] HNWPLg4qXeGRMfIs60/RJBsoFZXbp0BaTEziVFr5ZJmbKOLbH7GcFGV5wO5dFBR7NHlRFhNaViCvLwU1 lbm [file] AjN7N5PPJ9Mvg8ENC+XY4xNOf+Ug1Yz2EdbeO9ioSaVKgfExR8LP0WMHBBF6FTVy== ID Date Data Source [id number] 09/27/2020 07:12:03 PM EDT [facility] Name Value Range Interpretation Code Description Data Cinthia rce(s) Supporting Document(s) Care Plan [facility] QWOCGo1nMeYXTtVl24/FZTdzGIBec3YeHEkyRKk7HOxeKAFwZ3OtJYY5aX3gRJT9KXxKSrFtEcOkMrR6 lbm [file] AgICAgICAgICAgICAgICAgICAgICAgICAgICAgICAgICAgICAgICAgICAgICAgICAgICAgICAgICAgIC AgDQogICAgICAgICAgICAgICAgICAgICAgICAgICAg ICAgICAgICAgICAgICAgICAgICAgICAgICAgICAgICAgICAgICAgICAgICAgICAgICAgICAgICAgICAg ICAgICAgICAgICAgDQogICAgICAgICAgICAgICAgICAgICAgICAgICAgICAgICAgICAgICAgICAgICAg ICAgICAgICAgICAgICAgICAgICAgICAgICAgICAgIC AgICAgICAgICAgICAgICAgICAgICAgDQogICAgICAgICAgICAgICAgICAgICAgICAgICAgICAgICAgIC AgICAgICAgICAgICAgICAgICAgICAgICAgICAgICAgICAgICAgICAgICAgICAgICAgICAgICAgICAgIC AgICAgDQogICAgICAgICAgICAgICAgICAgICAgICAg ICAgICAgICAgICAgICAgICAgICAgICAgICAgICAgICAgICAgICAgICAgICAgICAgICAgICAgICAgICAg ICAgICAgICAgICAgICAgDQogICAgICAgICAgICAgICAgICAgICAgICAgICAgICAgICAgICAgICAgICAg ICAgICAgICAgICAgICAgICAgICAgICAgICAgICAgIC AgICAgICAgICAgICAgICAgICAgICAgICAgDQogICAgICAgICAgICAgICAgICAgICAgICAgICAgICAgIC AgICAgICAgICAgICAgICAgICAgICAgICAgICAgICAgICAgICAgICAgICAgICAgICAgICAgICAgICAgIC AgICAgICAgDQogICAgICAgICAgICAgICAgICAgICAg ICAgICAgICAgICAgICAgICAgICAgICAgICAgICAgICAgICAgICAgICAgICAgICAgICAgICAgICAgICAg ICAgICAgICAgICAgICAgICAgDQogICAgICAgICAgICAgICAgICAgICAgICAgICAgICAgICAgICAgICAg ICAgICAgICAgICAgICAgICAgICAgICAgICAgICAgIC AgICAgICAgICAgICAgICAgICAgICAgICAgICAgDQogICAgICAgICAgICAgICAgICAgICAgICAgICAgIC AgICAgICAgICAgICAgICAgICAgICAgICAgICAgICAgICAgICAgICAgICAgICAgICAgICAgICAgICAgIC ZrBVGrRWUfWVFxSCu8B4lcZVQoTXJtGP2jHHn8Yh9+ CJaECaZlHGZ1dpWatO4PKL2pk6GkRLpyKBDbc3WsWMh7MZ5CWHNoVXzhUG8BVHmtjm2CSMVhLKWvlZNG x7fyXoCqLQY6HWExWqmgHA7UGKMsN5cgyrQsFJDcIUWWBL3SAhHrQ4MxuD13UIQLHq6+DQplbmRvYmoN IuO1ZIJkq1UaPTx1PM7DAHHhYonhn0MoYvDhEMMGNW vvBJ5VHGI3FXO0OAOuLf7BKMHqM287lxWvYI2PUt3XXlEwKR3xir1PYrYjDRGbAomRPsq9RUhvSL1CgI TeNMrNCTEuMAJqIM8nBldvVB6txQtwZVbzxrR9LJizOCTKBWU7LEPjCR3kWCQaSYD6QbCsAJFTNX2ZFL GdRVIgkLJpCAJoHDGSCY0CPVkoTQC1JxvuhoFqnBIm RMjaQX8BEKYgixKqQfBsVYHTTId+Dq1FYK1gy2FmGUdsKmZuLH8wam4LNCaNCcOrM0Z9nIKfB4N5MDpx Ou6LVNFeZENoQrZcGMMDFPuwPY2DKH9kieF3DF0KbYTiNKBbAFEtaGSvOTr3G72srHYyZKngOY5GGGX+ Simin+Nu2ARLMlKQKzSUIgToQkIQEBRrLvG2AzV3UGr1 EvC3TrLS28lGeebkArGKsbJB2KKT7iCDAlTRYDIA4OeKQeeF3bzzJcOEVnWJSVRcPzY53lmCYuUKXrNI R5RFOtNe2FQATrR7CmgjVrkIqubfOpRPFsUXHOQD9TFHsmhdRkdVQckXueQY31pTlrOF4JJz8GJpIhEG 3uog8QuUMxHa4HFXCgZR5ROQMwDQWyNFJmYTC3RFSa IdZdVFcxBHVfPMKvRAP8UQDrCMFcSE6IKdCrDQVzYkLbMAhcZJIuRBJmxl8EPHYoERBdIGdtNDCiOJAo EOMiBQemYWNyRIBpVOX2WKBgLRVmKU2LIgGnNBJjASMnXBExMOHlDYPsuj5IMFUuSSPhBJV3HTGfMNSc AEBvTIlbFKCnRWFhNTO4ZICiAELaUF1GLwFkSJAfCY J5KTvtYKWvEOJiwa3TGRAuDPTuWcm1UaDhNCEiTWPcOHajGMEqESViGCMgZBHxHRFxOK4DAzVkTDGxWG Z3OAmzSBCvOBKoyl3PWHFxWFCfSZD4QYTtHGJoBOJbKXioDADuYGT2HASrMBWhALMiOM8LOuJeBDPoLR J2HUCmISAlTYHcuu8YRXUvBHWlWzM4YLDnRXEwHERi JGdoMYHuEDT1Hkc4JRDuQXVqJH7YItSzFZXnBIo4EDQnBCEhCEDkwi1CLXJuZSBzPHA6HeKsIFPvPAOz HLvzXOZeGQU6AVfxCIMxSCJkIG6VRdEkHCVwIFc0GmrhJRRqRWJofx5OVOLdGWPfVBlhGXIfMDNxMIAi OXfmIOTrWWF6UPx0QCHrYUSvLV5UCpBrWTHvVxDyYg ftOGDxYTRpzl0TSAUhMPDyLZF6MYGyXBQhVOAvUCpdTKAqMRAdLRD2EKNzLYGsWM0GIrVjCIOeBgYqGF tuHXBxYDNtew7RYTRpCRRvVmE8UVTxJLDeVEZxTBq6nnMgjFNpYFq1HW9QO1BtexYdNiwLUy1Mj285RO O4VVIkXp4ZW1aoHw2uIWJkCKVCNi5BPNa1UCCdGBv7 CpM6Ubw0GnRfQAMrGPOsKhBkKWZ4PGVwEsa+CBgqOGZsUNUgVKZ3OqngXZVpJHV3UAPcWOK2FOT4GCLt QQ9zJPXVMe7+VDzthRUglZtlGRAGXcXwOhv5KGvfTSBPAh1O ID Date Data Source [id number] 09/27/2020 04:35:09 PM EDT [facility] Name Value Range Interpretation Code Description Data Cinthia rce(s) Supporting Document(s) Progress Notes [facility] XRTBQj6hKyVUCxWh18/RAPywMICoy3DmVQisJPh3CPvmDGPlE2NvQXM0nT8gOKW1WOpMTtFcSrSkIlT9 lbm XlNczZQbNpDHKyLtaPOvOkRKpmYazgcJBqEI0NwXC8AQJbE73qWLYsUBUzH3DpSCSwBWA+Zp5MMAHhsR EyJV0FBfbF5NomxpiICW6Z6g/NL65QDKoz40TU5uDTPiYiitLA6zI9Y0mttS20uONyg6mtnl/Y4khTrg ejoEYiHCM24lr4hhfBCu19TbkV8HbDVo+7+TNKtBrc qG+/Pcoqsr8c2/3cTcJY0neeiOle+9Nz//3AceJFOhA/16HBT15lZmvBdicLZGaABcJIMdb7GcNZhd2x 69hph+DKV146dUEwViZ7bcBsAMFvkif3cp1x8Sg+uniseh+K13cIaMy6p5kJPXutufAJrRSUE6tpIcGt WwwXdKjyYRAWo/Oy1gihmU6jMCr8FTAw8qDnr6MyHF Sot3DURiC4J3eCcZHBbVWj49YoAa0rav4qn+F3+wRdRiagKiZPadMmzGfSO1VTwS6bD7FRovHuYT89lr xRKJvsqBFbDm5uOKkFnUghKN/hpMfAPkWJFfp+3Snro44yd55qSrMB3fEMjY9Zj+wnC0vbNIs8sslULz lenlbk1FO6l57ukosubj7Gupd/tovgGX2bwzVlHZAT [file] MjIyMiAwMDAwMCBuDQowMDAwMDIzNjYwIDAwMDAwIG 5BAmKtERUyBtM7LlHaSLCqIQJpks1IXQQfPRTiUqy7BIWhVWMiNHIjOUg6rvNpfQGqYSt6GG5SJ2Gshi PfEpVJYp2Gd053MZO1RTQvSc6CE8wwRt7lDZNiUCFGRp6STGn8ATWwLJl5PcElY5JyUcN5OOIqTUluN4 T0Aqw7FWObVTF+RZayA4R2PVl2YCB2DdZtTQBhHDKv UJB5JRpqXrBkUqLgUB0uEVQMFe3+DBkwmZHtlVylPOLZAxI9NHX3ASymUKXTKz9W ID Date Data Source [id number] 09/27/2020 02:02:16 PM EDT [facility] Name Value Range Interpretation Code Description Data Cinthia rce(s) Supporting Document(s) Nursing Note [facility] JFPFUt0gRuZPMaVs83/QWUteFLOeo2QeHFrrUZi3EMqaUPIjH1LwGXC4vY9fMNY4LBkHPyTuBdVePbK1 lbm [file] IlkgC0siLyMYseIXL1SB2PGVKBS0PXAb== ID Date Data Source [id number] 09/27/2020 11:27:38 AM EDT [facility] Name Value Range Interpretation Code Description Data Cinthia rce(s) Supporting Document(s) Care Plan [facility] GWKXUt5gBtHQQgIw19/OVLbqNZJpj0HnOMtyLLq7SDtyRQXgO6EyHRF3lX9tBEX5BAgRLxYpHoAwXvM5 lbm [file] Bq1CXHYNH4AUYy== ID Date Data Source [id number] 09/27/2020 10:31:58 AM EDT [facility] Name Value Range Interpretation Code Description Data Cinthia rce(s) Supporting Document(s) Consults [facility] BZPLXg5xBbTFWjKk08/CXKrqPOGza4LwGSapSMy0XSfkHFIpC0OhNOG3gT3tLWO7MIdSObBxHwMvEdC6 lbm [file] AgICAgICAgICAgICAgICAgICAgICAgICAgICAgICAg ICAgICAgICAgICAgICAgICAgICAgICAgICAgICAgICAgICAgICAgICAgICAgICAgICAgICAgICAgICAg DQogICAgICAgICAgICAgICAgICAgICAgICAgICAgICAgICAgICAgICAgICAgICAgICAgICAgICAgICAg ICAgICAgICAgICAgICAgICAgICAgICAgICAgICAgIC AgICAgICAgICAgDQogICAgICAgICAgICAgICAgICAgICAgICAgICAgICAgICAgICAgICAgICAgICAgIC AgICAgICAgICAgICAgICAgICAgICAgICAgICAgICAgICAgICAgICAgICAgICAgICAgICAgDQogICAgIC AgICAgICAgICAgICAgICAgICAgICAgICAgICAgICAg ICAgICAgICAgICAgICAgICAgICAgICAgICAgICAgICAgICAgICAgICAgICAgICAgICAgICAgICAgICAg ICAgDQogICAgICAgICAgICAgICAgICAgICAgICAgICAgICAgICAgICAgICAgICAgICAgICAgICAgICAg ICAgICAgICAgICAgICAgICAgICAgICAgICAgICAgIC AgICAgICAgICAgICAgDQogICAgICAgICAgICAgICAgICAgICAgICAgICAgICAgICAgICAgICAgICAgIC AgICAgICAgICAgICAgICAgICAgICAgICAgICAgICAgICAgICAgICAgICAgICAgICAgICAgICAgDQogIC AgICAgICAgICAgICAgICAgICAgICAgICAgICAgICAg ICAgICAgICAgICAgICAgICAgICAgICAgICAgICAgICAgICAgICAgICAgICAgICAgICAgICAgICAgICAg ICAgICAgDQogICAgICAgICAgICAgICAgICAgICAgICAgICAgICAgICAgICAgICAgICAgICAgICAgICAg ICAgICAgICAgICAgICAgICAgICAgICAgICAgICAgIC AgICAgICAgICAgICAgICAgDQogICAgICAgICAgICAgICAgICAgICAgICAgICAgICAgICAgICAgICAgIC AgICAgICAgICAgICAgICAgICAgICAgICAgICAgICAgICAgICAgICAgICAgICAgICAgICAgICAgICAgDQ ogICAgICAgICAgICAgICAgICAgICAgICAgICAgICAg ICAgICAgICAgICAgICAgICAgICAgICAgICAgICAgICAgICAgICAgICAgICAgICAgICAgICAgICAgICAg EABhVZQrSKTwSMf7Y6zvVTIfDQEjKY2uWRs2Or8+RArGBoClLQN8wfOgoD4JCQ4xz7FvHYwrESMlu9Tm KIt0KN5BACHvTIclFO0QVRanvn0INSPvHGIapLMJh1 jjAeIcBVI8OAEfZuyuZA8ZWUNuN2vzhgXrGOZiUWVQYDslNUMVVZthTQYJFHMeLDUeFcUzROxtKM1Xc5 XukDA3XDe+Vu3IJO0tj1TwTYexJyTaYF8eot6UEUmYIuRcF0AwctX2IJY9BUXbRm0HBEXzRENvjQItOC WmPDXJAgDnB3LpxP62DQTGLv3+DQplbmRvYmoNCjM4 CDCdj0KkQVf1CN7KFZBeXHy9wVAhZ33pb3VxyCQwUuxvHtE2WUTpVFETyYUkLpkoWTJINYFymAG3KqZt MmJwUACsSIcyJhNZSIgIGrGaO2Joe7GlFiO9CAHpAtOaIRiwJVBqAcP8IK99pZheMF9WGZTvDHKqFI23 XZZ1RKJdGc1SEr1JXvEqUS1roz4TWugbGXPvJwfWWm f1UPdxMO1XsGSpK7GagRXol1aCBoXfH0MFXMA1IRGbHu3VFEUnCcQiIABzVRbeDF8lELDqLFALnJusfb M8OA2OBE4blgNxEE5UYnUgRl0qXi7KXqIiY0GwB5UsLMTmWMYBWZsdAK3TTRacSG5jTW6Iu1WUzLRbwY 0uwt8FYKIxNIKgTvhago0PPsorM7M0bXntQRHbMdue CDCLEHnvTU5RGQNsUST7JJTxLcPtANLIFrKdZ51vFS8HO9Iir50mAoP7IOZrHzUfUWxqYW75rJvdywBj iFXazSgdWE5ZDj5+GZnxwaHkPllKUjpqJFVWJmHqYEMTTpRwOYUqKSPrLXVjVjR6SkKcSh7NCDAkHLPn MDAxNyAwMDAwMCBuDQowMDAwMDQxMDUzIDAwMDAwIG 0JLuTpGEXjAGA6WuSgXSNeSOYjgf6OTSJeQNZzWNO8OuUzTASaQKBhJBfaHAXvZFBxMOq1BLTbHCRmPH 8BDfXdCZXqKBX8XMQqPGUgAVEhgq6HFIPdFNJjHZStFSOmRTPeSWMwTXozFHKpOGL0TQN0JQSuYQLvEG 6OXuYmPOYdEEd1MziqVCKlCXZmux4ANUBqUCOuAiuz ODFsPOPbBJKzNRktUIMqGWY5QLXkLJCoBGWwLL0GHkInSKBpVLWaVMWjKBTwFIMwhm9WUQWfTZOeMVn6 JLQqIVEmVKSaPZshRBEeGYMqKDv7PSDsRTKtIT7JRkMsWXLzSALjIgOfJOYxKQStgq2IHPLvMNAqOgSq ZSPsMHLaZIErWIrwPIGnTMBiRXWzHGKpHAViIK0ZPs HnLDKgLWG0OWRnDSReJGLfpa8HGOTjEKHqBiI9LIJhWRKfGUFaBTfeAIIqSKLwVTkzEZZbCWCmPZ0VKu VbLAHjKFXwXfRgZNKsEZEbwj9OHEHtODElCVTnJTTtTSNxNILlQHzxUNQgPVG8XvAgZRCpLJNbVF5SXp WhGPHxRVJ8ZOBiYSZvHTEceo0XPIQeKGDrFsG9NgSq TSQfQCPfWJuxBLRcCCY3NFQ8RNOeXTGbFD7HMcQfCQVfCSR5OGywVRRlUGPwkf2FIVSvWYFrZhy6RNVp CAZuQCRyNFqhKIDeAOW7QBgeCTRwDPCrQS0RObCmWARuTkq9KHotDDDxRKCdvd3HDLZaCZXhAZU6KMAq USIuFSLsBBcwSAApRNI4MsQ3LHIjXDJlWC3ZIsIjDR TuDYW9MUcpAKGoROGfzi0XPOEaSXS1BZy6OZMbDJIrFJLoQLgzAXDfQUObILDmTEXbJXGlMC3CDqEfTJ TvHPF7HDJnQXJiDGOzjz7RPYGsYML8Uww3LgDcXSGfRUNhNFcuZFIgRAFnWJV6DZMwJWBaNI9LWqZuHE WnQPGlYjklMQGyEGMpgd1WtPSixLohbm5HRZxYOf5A uZlgRZXzBVfqKu5nxBXaWKSvHWUCPq6EpbWiDDGlCVRDGIueUKCjLQW9LAHfYmK1PfAePxvcLAYxIRYo FBFdYLM8YUi3RRZyVdR7GPV1UzW1NwY4QLT3OqT8A5U3CWF3UIN1JQKmUAZlH9O+RK3pYAg+Kw1Nc9Az qzK2ksRwKXg8RcBuXA4KJFSVG2WAXu== ID Date Data Source [id number] 09/27/2020 06:25:12 AM EDT [facility] Name Value Range Interpretation Code Description Data Cinthia rce(s) Supporting Document(s) Nursing Note [facility] OPKYXz9cAnTVUxNi20/GEWhrPDYwr0NcRCmlVHq6MObiGIQaT7BuXWG9pX3yGXY2ZKaATpNpWpQnKgX1 lbm [file] 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/VbYra/83OrYS9hwhf7beTLGdGVG0PUtQoy1v8b [file] AgICAgICAgICAgICAgICAgICAgICAgICAgICAgICAgICAgICAgICAgICAgICAgICAgDQogICAgICAgIC AgICAgICAgICAgICAgICAgICAgICAgICAgICAgICAg ICAgICAgICAgICAgICAgICAgICAgICAgICAgICAgICAgICAgICAgICAgICAgICAgICAgICAgICAgICAg DQogICAgICAgICAgICAgICAgICAgICAgICAgICAgICAgICAgICAgICAgICAgICAgICAgICAgICAgICAg ICAgICAgICAgICAgICAgICAgICAgICAgICAgICAgIC AgICAgICAgICAgDQogICAgICAgICAgICAgICAgICAgICAgICAgICAgICAgICAgICAgICAgICAgICAgIC AgICAgICAgICAgICAgICAgICAgICAgICAgICAgICAgICAgICAgICAgICAgICAgICAgICAgDQogICAgIC AgICAgICAgICAgICAgICAgICAgICAgICAgICAgICAg ICAgICAgICAgICAgICAgICAgICAgICAgICAgICAgICAgICAgICAgICAgICAgICAgICAgICAgICAgICAg ICAgDQogICAgICAgICAgICAgICAgICAgICAgICAgICAgICAgICAgICAgICAgICAgICAgICAgICAgICAg ICAgICAgICAgICAgICAgICAgICAgICAgICAgICAgIC AgICAgICAgICAgICAgDQogICAgICAgICAgICAgICAgICAgICAgICAgICAgICAgICAgICAgICAgICAgIC AgICAgICAgICAgICAgICAgICAgICAgICAgICAgICAgICAgICAgICAgICAgICAgICAgICAgICAgDQogIC AgICAgICAgICAgICAgICAgICAgICAgICAgICAgICAg ICAgICAgICAgICAgICAgICAgICAgICAgICAgICAgICAgICAgICAgICAgICAgICAgICAgICAgICAgICAg ICAgICAgDQogICAgICAgICAgICAgICAgICAgICAgICAgICAgICAgICAgICAgICAgICAgICAgICAgICAg ICAgICAgICAgICAgICAgICAgICAgICAgICAgICAgIC AgICAgICAgICAgICAgICAgDQogICAgICAgICAgICAgICAgICAgICAgICAgICAgICAgICAgICAgICAgIC AgICAgICAgICAgICAgICAgICAgICAgICAgICAgICAgICAgICAgICAgICAgICAgICAgICAgICAgICAgDQ f3W6agOROsBVGeHA6uAZo7Iw2+SQcFLiQxNJX6nbAk kP2FYT7ae9EbKRxnZCQkz1KoWTc8TE7JTCGoXPzrHA4DPQckek5DYSEaYIUdrJPKb8sgNnCsCQR6GFZf YidlVY9BASPkH2eyglGmXYEsFNXMCK7LDsSgA6OqrZ28XYYGKz9+GOupxaHyThkCKdUeAJJrs7LtXWn4 RT4FKUDjGktyp2VyFmXeBQUSZOkvEO7CTYS7OJWrFB IzGa2XHZCoZ095lqKnCQ2GBo4QFjWdVO8qpe5JPgWqUANlJbeBXbd3AZxgLE9KeFRjUHuIePVysS7kFA 6yzLIxBwzjSS17pKSeQ2ippI2ocaN4yDokMHRZTZD4PTEqKP7mQGNbJGS3TlD0VTOFOP2NDUBjGRRufI AkMFJvVAYMTA9YNRxkLRK0BkymwbDdlCFtJLduSA0J YXJlbnQgMjIgMCBSDQo+Uv6TXX9px9KdYWebDXNnZU6lmb6HQFuEQvHxI5W9uWDnX8U1NYjoFj8HRAVj UYKsDoUyUBGNLKgwSN7VNQ8yplP1BE7DhQVnMVUfTJAsfNKnJZj0R55chNIjTRbpIX8DFRI+Simin+Pg0K TLKzGAMnGSPsMwEjIMDYQqZfL0PzB3CPi8ZdS0YbWH 67lShsdcJvXAgwJL6LNR9cVJVbEAASBD2IbQNtzA4nweGtYuZoTBNXFsOtM83exQWjOBFrQFUmGNBaHb 2RDXVnH0PwjqKbsNywpzYrDHYuMOZAGQ2MWHrmnyYsuLSsoPbaKO45zZugCO8MEx2ACqDxED3vsa4XjC CqJw4VREAfKK7WKSEeAYBtXFZcTDI2KQIvLhLgEQco TILcJFTrXCS3LPWkMPQcQF7POfBxWIDsPWl7IibmKFJsEFRmao2CKIZaNDLiHPWyYwMuBIHyPSXnQAjy DGLdEYNdOYA8VZNqUJZgLU6TDyLuGHSdDSLqPAXtKPHdBCHrvy4QMBIqQWFjMXYfDGFjXVYiKQPxMCnb BHLuHSSwUctdXMBtXOXmWK3WSrTtDEOhJRH5WiQdGV HsHTVqyr2RRGYhTZGoQgR2HCEqGKPyNYIzYNvzGFMqNCRmSpK7WIIaMDZhSN6KAsImIIIgWFH9ADPsGE VcDILpqo2HCVJjSZAwDlc2NaShQBMbKXRiYCmqYWGdYQK3ZbH9RWXrBXUwAM6AIeDcEOHuQWR0OcPkLZ VjKLXvrn1EFTIcQZOkFqz5UVMbYFXtISGqYJrsTVFe PYX3YPLuPJMyMSObFY0NImQbDAYaYPjeCGCkEVBrVROtym7FABDoSTNiZKC9UHCfIIQnORTbKNigJWXc TGA5JxdcSOAvCKXbBL4WAeOgUBDdZTu8ZRQvAWTjUZOyqj9EWXQwOCKnBAn6PsCjTTHdQDAjMZsdPUNd ZABbQRQhQCUeVPNcVB9UWkGkBWUeIjG8EWNzNWRrFE Pntn3LMFJnJJYxKVGvDULwZSBuBIZmJQl3ixSixNYaBYf9DT2DY7JemrKnBhZDRk4Jy817XVV6UBNxVi 0QR9tuFk6iOMQaXDMZTf5KSAe1InP7FFSyWHY6DeK2RZF2WtBhRoPeYsN1BYSnQxVePqI+IDwyNDVkNj MmOSYfCSG3RYgxKYS6MZJ3KAprHfUcKNIcKq1zQQ ANCj4+AEjpwEXirIhaWFOGJbZkCHs2UUfeIXNJIv6T ID Date Data Source [id number] 09/27/2020 12:09:39 AM EDT [facility] Name Value Range Interpretation Code Description Data Cinthia rce(s) Supporting Document(s) Nursing Note [facility] AVIFBh5nJhYWSlFh08/WSEnaWRSnr3KxGMsvUVl8YJjzJIZxU9XfMHQ9dO8gYYM8WLbUCvDyYkVoXkW5 lbm [file] 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+1ClURezIZZdG4sZOi6+33/8DFOqlVPZog3C119 [file] T0YNCg== ID Date Data Source [id number] 09/26/2020 10:08:25 PM EDT [facility] Name Value Range Interpretation Code Description Data Cinthia rce(s) Supporting Document(s) Care Plan [facility] OSIVSc6eQmUGFwVj93/OYRwtOXOmu8XhXJkkOHo6TGeaTCPmX6IrOXL1qC3nJHX2KArLTlEgKjWdRyN3 lbm [file] ICAgICAgICAgICAgICAgICAgICAgICAgICAgICAgICAgICAgICAgICAgICAgICAgICAgICAgICAgICAg ICAgICAgDQogICAgICAgICAgICAgICAgICAgICAgIC AgICAgICAgICAgICAgICAgICAgICAgICAgICAgICAgICAgICAgICAgICAgICAgICAgICAgICAgICAgIC AgICAgICAgICAgICAgICAgDQogICAgICAgICAgICAgICAgICAgICAgICAgICAgICAgICAgICAgICAgIC AgICAgICAgICAgICAgICAgICAgICAgICAgICAgICAg ICAgICAgICAgICAgICAgICAgICAgICAgICAgDQogICAgICAgICAgICAgICAgICAgICAgICAgICAgICAg ICAgICAgICAgICAgICAgICAgICAgICAgICAgICAgICAgICAgICAgICAgICAgICAgICAgICAgICAgICAg ICAgICAgICAgDQogICAgICAgICAgICAgICAgICAgIC AgICAgICAgICAgICAgICAgICAgICAgICAgICAgICAgICAgICAgICAgICAgICAgICAgICAgICAgICAgIC AgICAgICAgICAgICAgICAgICAgDQogICAgICAgICAgICAgICAgICAgICAgICAgICAgICAgICAgICAgIC AgICAgICAgICAgICAgICAgICAgICAgICAgICAgICAg ICAgICAgICAgICAgICAgICAgICAgICAgICAgICAgDQogICAgICAgICAgICAgICAgICAgICAgICAgICAg ICAgICAgICAgICAgICAgICAgICAgICAgICAgICAgICAgICAgICAgICAgICAgICAgICAgICAgICAgICAg ICAgICAgICAgICAgDQogICAgICAgICAgICAgICAgIC AgICAgICAgICAgICAgICAgICAgICAgICAgICAgICAgICAgICAgICAgICAgICAgICAgICAgICAgICAgIC AgICAgICAgICAgICAgICAgICAgICAgDQogICAgICAgICAgICAgICAgICAgICAgICAgICAgICAgICAgIC AgICAgICAgICAgICAgICAgICAgICAgICAgICAgICAg ICAgICAgICAgICAgICAgICAgICAgICAgICAgICAgICAgDQogICAgICAgICAgICAgICAgICAgICAgICAg ICAgICAgICAgICAgICAgICAgICAgICAgICAgICAgICAgICAgICAgICAgICAgICAgICAgICAgICAgICAg MPUsRVIrPMPlABLdZYPzTRg5G7ptTEXvCBPdXD6zZC d3Jz8+KRcAVqJkRYF7lzKsgD3GKX7it7UxLZsfGYXxt8AuWYy2XK7CHMKaQWweZB7OMFhijn6QVYQmQU VkrXRDe2rbMhQcROO1HYKuKvcoQN7EVLNrS2tqvpThCEZgDHEQBBuqJZPGXZsiLKKGMKCkVQJuQbYyHw JqXEKzZZ9PCLFpY316jdWnEB3NFl0WXdUqIB1jzy7A ScTfYKSfQjhPMsf4ILbfWD8QiYJeuOEhXWYuANZSPyGaH6vat3WtRdRlBBCTHVqgUW0Gw5FtmFWqSCj+ Fh7FTC4cz9JjEMhhMUWwOU8tdh3MVBgZHoQkG7IqpYiwGATzejYsAFwxpkMxvFILQAKxyIeyBST0eSep ZGAQRUQ2SHEnEQ3bQMCwBMO2LuG1EBUKMI0ZKEQkLW KjeLMnHIHnDJIOYR8QSMtoIZW1ZbuqptMarURyYWjfAJ8DMXZjobQfHbGrLAGUQJx+Iy6BCR0wy9LwAD sgXFWvQG3sos0THGyPCjObZ7C4tLIpZ0O2HKenCm8THMOeVNTeVwWuFOLDDNmqZM4CFU1uylE7IV8YnU BbNSMdVWCkeNKuLPv9P70mxYYqYJviTO4KDTP+Simin+ Lb0LGXTgRKIoCBYxMkUpPCXANaJxZ0QaI5ENa4OgK2QuTN05bHqnreZiLAxvMZ2FVJ1xKNNiZGJCJN8S oLWtzI1fjeUyYdTdVIJUPqXaJ16azOWzFGKdUCTyGGCeHs7TCESqJ3JgumWibIwfoqDnQOByMHXYVN9I RDmhsgOqnVEqpVlfTL31jJxzXF0GKl5JLnMqBL2elp 6QgBGmLh4GLXRrTg8LZXAtOPZoJCCrKST6QSEdZxNcYEqsPIThQYOrOUB8UUWoTILgWF6RYeFpDLYuQj kzWfHdMGMlJEAifd8HCBIlIILeZRV3JFKuOEFsWOEcRQvgWLNjGWMbGBH3LCPtOXItFI6KAbMwJUXeII TaNhJcFVRvWSSflb7ZTAEwALBwGcO1PNWfDRVlUYAd RBrtQPKkUBN4GLB7XXLoHYFpPS4WKcScSURkEGK1OjUhXQRjXXJoyz1WVROfOTRfQek3XYIdYWLnWOJj JGscQHSfXNK3BIi5ICMpXLPtSW1VEnOwOXHtYRwkDHywEIXuYELbnh3NIDMhMGIpUYMdViIbBUHqEDSi GMizVVTeSUHmPYPcDBHsOFBlTR4YWxAcXVRvMXB2Ty bwRWYtOMJwmt7DAZDlBRNqJFM2HiDlUDOdFLBtYQzjBBBnMLVyVIt2SPPpCTRsEE3VYjBoMMNbEQUwIX DdSMNzUKWhav3QCSOiLGQjFzL3XbBuTBEdGERpMHzvDOXkKYYhEiMwHMYrEGZcAC7OGvEzDEApLOP2Nd ZfBCNuPIBvvp9HBIYdWQLrDDy6ZPAxEIWgUFJnIMal YQKlWJJ1UAyhHAZhNUTbCA3PWkMjPVSuFjVfSRNbSCAyOQTcsp6IIONiQHHyMqH8ORLvOKNkVMUdPWfm YCRaNBG5Oye1ZKHbNDHjZU6SPbPkIZHvMpf5PultZQLiYGLdck7FMUSyZFZbWllmNnJoWNYzUTUgYBdp GZTlAMX4ROPuFKXgTKPwAT7GWiZrEOQaZpb4KLMeRW VfGQXnqt7SIFQnWSKsLSKnAADvWCHbPANfRXjcFINaTCF1MyCqAJOqITEdZD5OMuCwLJGmCwp4SPWyXZ VeQGDftw1KXCLpVSJeDYNhKCSzENTzFQAnQJvoCIImMGMrHdtoUERjMUGhNN6GFrEyBZUyBsB8OsNqDT BdIZKbzx0CiWWjwClssk6MDItKJo8DiBiaQGA5WZvc Xy8ggKJxRJIrKQKVGc9JksQyESTcYVMGAOciVQZuZMYnNzW6N5E7DHPaHQP5XFA2OgpgZnYsREFwBItq TCQ9LqU3FkMlLZOeSsepZYKtBDQ2BbW8GKKpWyTfGMI0MmSoQOw+HI2jRXm+Pz5Ca2YxnbJ1phRxSIaz ITE0RV7OOBXZK1QBNu== ID Date Data Source [id number] 09/26/2020 05:37:05 PM EDT [facility] Name Value Range Interpretation Code Description Data Cinthia rce(s) Supporting Document(s) Nursing Note [facility] LTWQTo3dCeYXMoJs56/EEQzsFODmq1NfQJqrMBh6FWpvMCPvS5BkWIT7kH6bYCZ0QNhACfTiKvIiOcK1 lbm [file] ICAgICAgICAgICAgICAgICAgICAgICAgICAgICAgICAgICAgICAgICAgICAgICAgICAgICAgICAgICAg ICAgICAgICAgICAgICAgICAgICAgICAgICAgICAgDQ ogICAgICAgICAgICAgICAgICAgICAgICAgICAgICAgICAgICAgICAgICAgICAgICAgICAgICAgICAgIC AgICAgICAgICAgICAgICAgICAgICAgICAgICAgICAgICAgICAgICAgDQogICAgICAgICAgICAgICAgIC AgICAgICAgICAgICAgICAgICAgICAgICAgICAgICAg ICAgICAgICAgICAgICAgICAgICAgICAgICAgICAgICAgICAgICAgICAgICAgICAgICAgDQogICAgICAg ICAgICAgICAgICAgICAgICAgICAgICAgICAgICAgICAgICAgICAgICAgICAgICAgICAgICAgICAgICAg ICAgICAgICAgICAgICAgICAgICAgICAgICAgICAgIC AgDQogICAgICAgICAgICAgICAgICAgICAgICAgICAgICAgICAgICAgICAgICAgICAgICAgICAgICAgIC AgICAgICAgICAgICAgICAgICAgICAgICAgICAgICAgICAgICAgICAgICAgDQogICAgICAgICAgICAgIC AgICAgICAgICAgICAgICAgICAgICAgICAgICAgICAg ICAgICAgICAgICAgICAgICAgICAgICAgICAgICAgICAgICAgICAgICAgICAgICAgICAgICAgDQogICAg ICAgICAgICAgICAgICAgICAgICAgICAgICAgICAgICAgICAgICAgICAgICAgICAgICAgICAgICAgICAg ICAgICAgICAgICAgICAgICAgICAgICAgICAgICAgIC AgICAgDQogICAgICAgICAgICAgICAgICAgICAgICAgICAgICAgICAgICAgICAgICAgICAgICAgICAgIC AgICAgICAgICAgICAgICAgICAgICAgICAgICAgICAgICAgICAgICAgICAgICAgDQogICAgICAgICAgIC AgICAgICAgICAgICAgICAgICAgICAgICAgICAgICAg ICAgICAgICAgICAgICAgICAgICAgICAgICAgICAgICAgICAgICAgICAgICAgICAgICAgICAgICAgDQog ICAgICAgICAgICAgICAgICAgICAgICAgICAgICAgICAgICAgICAgICAgICAgICAgICAgICAgICAgICAg ICAgICAgICAgICAgICAgICAgICAgICAgICAgICAgIC PmOWSuQBIxPKr5H5lsYHZmARQoEC7bGGp9Kw8+XJlPYzUnIUF7ieDowR5SDK6pz4UiJTecSHVyj5MiAE e4FI7VCKUlDSmnUT1TSSemuf7MZIYgOVCfdXNVw3heKrIcIUY2IRCuRtgmWM1YIXZlE4aghlDuVEVoGW QRFA9COuDnX3WamP99GBBRYg4+DQplbmRvYmoNCjI0 CMTes7HuFZa4BB3CIDWtPjxyt6PaNxDyPOKHREjxRP7EGZM2NRE9BYNkSa5RJPTdK877cuSsHN1ZQf8O EiKmTQ4tqx3WGeIgXUOyGmoSCwa6ZJdkVH8DhTWiWWeTvGOniX0yWA5dvJFsLyxtIBPbdNRvOHFXt6D4 JTQhHNEPQFC6RXFxWU8cZENjKWAtYyNiWPMAEZ3YQU MdSXLktZNlOJPpTVJEQM4TCDsnPAS1YtxcrkYncJZuHRnlNX7MKLTcnrGhBmOgEOLTCUf+Jb9CTR4ic5 KfYSwoKzDlNG2yum1BDBeFZiUeY7C3jASmI5C2ZFqwLr1YVJUpVSDlYpRxMQAKSQdjRM7AYV4okyY7GZ 7AmYEvKSTvKJPkeQUhESt9Z63oyVUlHLlsUI3KXAO+ Simin+Ax5MJLZeKYGzNOAcLuFvJGBZKfNrS3KcB1CGl8MoI3UzWG00eEqrpxKvCKlzRB2JGK8lSUJhZFRL TQ4GsCTntF9glaVdGXFjIOLUXjDdH32dvVScGAXhDJWmMIBpDu7VUYCnE4FuafFvfByyunCaSAPhNKGZ MY1CNRwkyyKldYVcoGfqUA41iImmRO7EAb3MNsUnEK 6lsc6CxGTyGp3AGXHsAs6QMZVzAPXjRVUkPEV5NIEjSrItDZliZFBdKSWhKVL3ZDJhOTYfXZ6IQaItDA XhHAc6SELtEAZjRGKfze1PYFBcGFJfXCvaBuPhZNNdELJeAVaoZQHnBXYmKTI9NFGlHPSsPB2LYwOyOV YtOMN2CpXlZBDvNUHeyk9EJSHkPIMoWfEnDSPsTNMn KGMvNXzmBIMeDUCyIIzaRHLyCXBfKJ9RLgIbMKJqPTYvLLTjRCHzAUDwit1EDPFdJNDzOlF7PKCpPSWf JWFtXYodUHUpROE1TGG8HJOpTGPuJL2ADnIhGBGsSVU4IiRbMTKuOHBpct1KHMJmCZJzGAnoQgCbKHJa ZMZbCRhnPERgUGN0NFU4DYLkUBCxMY7KQcLjRTEqAF p8HsMxLYOvBDVgvg9UULCxFXSpUhK9QEDbJVArYXKsQCfdMNDoBKK8OHUaTSZwENJdGJ5IRwYdKWKiGJ rvMtFvPJNkFVHleh8YVRGmBLHgLSWdMMMuUFFcXCJuSOcnVUQwIQN6WJcwGQSsDSNyMD0YVyWuLJNzYA zoLuVbKLSqQIPfme7YCQQmSRLhSER9IJVqMLIfQKDj IUcbNGWlWOZ7VPMpZVLeSHPfBC7TDpAmUPSqNqCeIlTbAMEjLQOlmx9VJNHzNJUzKEdcIIPpXGUoORTw XEdrVJLlDKElRKs7NWBuVSNuYX6TXoJcJDOnVqHtAaQdESNzOOFjwg8FwWKqaGpuaz9LJPsJLi2SmGtq ZOF7KJlxNz7fcMAiMtZiAEAKZd8MwuIdOXGaNRNTHX rcNCJcTTXkSGLfUvP5OtWwCfTrZLO1YxX3RCK5QsB9EHU9KVG2JhJ0A2V1RGSmRii2UbHwBWFhMuNcEY RlMTYyYjgxZThhMjg+VE6qMSy+Ok7Ec0VbspS6qxEeZQkmEdO0TO8SKDSDX1WIHc== ID Date Data Source [id number] 09/26/2020 03:50:37 PM EDT [facility] Name Value Range Interpretation Code Description Data Cinthia rce(s) Supporting Document(s) Progress Notes [facility] PNZZGs7yAoOFKkIs59/LAPmdWIUjm9EgGFefPCg9FXxgSZFxA3JlPBZ8jE5zGYU8OXaBFiKbDhPtJkH1 lbm [file] AgICAgICAgICAgICAgICAgICAgICAgICAgICAgICAgICAgICAgICAgICAgICAgICAgICAgICAgICAgIC AgICAgICAgICAgICAgICAgICAgICAgICAgICAgICAg ICAgICANCiAgICAgICAgICAgICAgICAgICAgICAgICAgICAgICAgICAgICAgICAgICAgICAgICAgICAg ICAgICAgICAgICAgICAgICAgICAgICAgICAgICAgICAgICAgICAgICAgICAgICANCiAgICAgICAgICAg ICAgICAgICAgICAgICAgICAgICAgICAgICAgICAgIC AgICAgICAgICAgICAgICAgICAgICAgICAgICAgICAgICAgICAgICAgICAgICAgICAgICAgICAgICANCi AgICAgICAgICAgICAgICAgICAgICAgICAgICAgICAgICAgICAgICAgICAgICAgICAgICAgICAgICAgIC AgICAgICAgICAgICAgICAgICAgICAgICAgICAgICAg ICAgICAgICANCiAgICAgICAgICAgICAgICAgICAgICAgICAgICAgICAgICAgICAgICAgICAgICAgICAg ICAgICAgICAgICAgICAgICAgICAgICAgICAgICAgICAgICAgICAgICAgICAgICAgICANCiAgICAgICAg ICAgICAgICAgICAgICAgICAgICAgICAgICAgICAgIC AgICAgICAgICAgICAgICAgICAgICAgICAgICAgICAgICAgICAgICAgICAgICAgICAgICAgICAgICAgIC ANCiAgICAgICAgICAgICAgICAgICAgICAgICAgICAgICAgICAgICAgICAgICAgICAgICAgICAgICAgIC AgICAgICAgICAgICAgICAgICAgICAgICAgICAgICAg ICAgICAgICAgICANCiAgICAgICAgICAgICAgICAgICAgICAgICAgICAgICAgICAgICAgICAgICAgICAg ICAgICAgICAgICAgICAgICAgICAgICAgICAgICAgICAgICAgICAgICAgICAgICAgICAgICANCiAgICAg ICAgICAgICAgICAgICAgICAgICAgICAgICAgICAgIC AgICAgICAgICAgICAgICAgICAgICAgICAgICAgICAgICAgICAgICAgICAgICAgICAgICAgICAgICAgIC AgICANCiAgICAgICAgICAgICAgICAgICAgICAgICAgICAgICAgICAgICAgICAgICAgICAgICAgICAgIC AgICAgICAgICAgICAgICAgICAgICAgICAgICAgICAg ICAgICAgICAgICAgICANCjw/eIZgA0wrqTAzyzZ2K2buAw3AMe3RXW6ie4AxNWGoAPoubvHpGerARjJq JRFxAnuSOuo0WZlnRP2XyKPuY2ZfQ8DrVYziCG4FUFPnONPigIKrEEEoTGIjDqD5XZDdUQdkNI2UlWTe VYhcCESoVOBzKQ4FNSYfJ736riGrUJ8JCo6SFhTfYP 6yia8XVpWkPABdQuaGKyb5XHplFB3FpDIquNZiFhRtEZVAVlWuA3frc2IxPyAcXQCTYHdgSP0Vw5CucK AxDQo+Og3MQA0jb5NzGTffOcZwCO6poi9HMOvTZqKtA4QgcOnoSPDna2fyYNDuCM3kwAYkBYA5JWhinT GgRXGXQTNyRKGiRGW0NAWrGF2nIFHiSBZmZtX2SYUA WJ5IAUTmJLCxyQJpZOOzLVACJU0CNPqxOGM6IcbykfQtxUDwFLubUU2WGOPmlwRyPhPmZSAVULa+Pg0K XP6eb0TrHPjfUoOvHP7jcp5QPUhGNmBpW0Q3xWHhA5G7PEulVd0LPWXmAPPxLiBsSNFEITpuOE1JCU0a poR5OK0GaKFuDCIqWKRcvNFfMXz2R63cbXOhBZceRG 0KICA+Simin+Tk4YBIJgMQHfUILrBxCxOVGSTjWuJ5FhX8IZp9LlE8PuTJ05sAnyhkEyEPegFF0VNE4aCT BfBDGPHK4OkEAfyB9ztoMqALLuYNVKTmGcM82fkCAkGDPoMQD7GHUgEa3RAQZdO0RhypXzmNxqafTiHW GrTXFUZB1XGXhmduOciDYjvQrvLK99mCmdFP1VNd5V BcSoPW8txq4RkFCiPh9AZRHnWW4NDWPvVKMiQALrAIY4RZTbUsNkCHlcSPBfEDSrXOG1HLUiZTNyDP8F RnXwCMPnNmUuNeCfMNHqZGXtmy1ZFSAyYRWbKYi2IGQdCEPmEYVgLMsrZLQuHLGmRXU6EEUfRWTlVM2U MbHiUNZyOTXgGRQoPCTdAXMavb2NVVSrURShRVC4CL ZfCSPzUIUhFYiaBMUgXFIgFHJ7ZUVfAKPbBH2JEgDzIOAmAMJ8FPjwUHEeFTAnvl1MTLUnJDUcPjm4Fn TkJPWmRLGrPBztMGGlQESfDGWmFZVwDTWgTD4LFwOhEPXlCWLmCKzvONUcUQKjlc1JDBMzWUIwTXQwGC WcRZHbWANmIZyxDFUnZRQ9LJq0XDReFIPjAH1JPpLv XAQsATO6ZJFwCQMgBFYggy9VMRTqVBUhHoHwTUKcZUVcPKFoTSnvFBNjAFC5AxU6JHWuLEAyQM8MLaVo ILEkMGj1GXBaCGRyTVTbdx0CHMJuBVZmPYNuGrFcSANpHLHmEKphVXHjRYG0BkO8NRSfMMYbQD6KMnFs TYPbWUy8WAMsLZLuGBVhey1TMGWtRMRyGDh2HNArFU ZzLQMnAHdqTNSqFOM6YKQ9CBDqDOUnFX2IUlBhAZWpOcLjEJVqPZCgUDJbvj6SHEUxWSVjLSXxGZPoWQ EkFHKvFOsmVHMvVUTaJFllGWFlMHKnCY6SFoUrYYMiYhAvXLGbCASgTRYekt1QEXOcAWHmExY2EiEtCA VdSVTnSBm5hbYrnHStXDr7JK4FE5UgmrUkFbpBUm4D t709HCX3BZYbVy8MD2hsRr8sQYNrPTJTFf2TTEk6AWVkEOA4JDNvSMSiDGFdTkM9KiY0TJC9TaThMkJ3 OWM+RDswSGP3XNZ7IzQmMhUqUZFzCkS2VBt7ObelV5AnFBN1Im9xKYPIEn2+DQpzdGFydHhyZWYNCjIy VPVmOTdxXUCGBi0W ID Date Data Source [id number] 09/26/2020 12:13:07 PM EDT [facility] Name Value Range Interpretation Code Description Data Cinthia rce(s) Supporting Document(s) Care Plan [facility] ZBHOGb5oTtGBDvCi31/ZWJydMAAwe8FzMTmeCGf4BPhnFZKtJ9KlEKR1cK2gTKE6DPzPBeUtJiVbQmE8 lbm [file] AgICAgICAgICAgICAgICAgICAgICAgICAgICAgICAgICAgICAgICAgICAgICAgICAgICAgICAgICAgIC AgICAgICAgICAgICAgICAgICAgICAgICAgICAgICAg ICAgDQogICAgICAgICAgICAgICAgICAgICAgICAgICAgICAgICAgICAgICAgICAgICAgICAgICAgICAg ICAgICAgICAgICAgICAgICAgICAgICAgICAgICAgICAgICAgICAgICAgICAgDQogICAgICAgICAgICAg ICAgICAgICAgICAgICAgICAgICAgICAgICAgICAgIC AgICAgICAgICAgICAgICAgICAgICAgICAgICAgICAgICAgICAgICAgICAgICAgICAgICAgICAgDQogIC AgICAgICAgICAgICAgICAgICAgICAgICAgICAgICAgICAgICAgICAgICAgICAgICAgICAgICAgICAgIC AgICAgICAgICAgICAgICAgICAgICAgICAgICAgICAg ICAgICAgDQogICAgICAgICAgICAgICAgICAgICAgICAgICAgICAgICAgICAgICAgICAgICAgICAgICAg ICAgICAgICAgICAgICAgICAgICAgICAgICAgICAgICAgICAgICAgICAgICAgICAgDQogICAgICAgICAg ICAgICAgICAgICAgICAgICAgICAgICAgICAgICAgIC AgICAgICAgICAgICAgICAgICAgICAgICAgICAgICAgICAgICAgICAgICAgICAgICAgICAgICAgICAgDQ ogICAgICAgICAgICAgICAgICAgICAgICAgICAgICAgICAgICAgICAgICAgICAgICAgICAgICAgICAgIC AgICAgICAgICAgICAgICAgICAgICAgICAgICAgICAg ICAgICAgICAgDQogICAgICAgICAgICAgICAgICAgICAgICAgICAgICAgICAgICAgICAgICAgICAgICAg ICAgICAgICAgICAgICAgICAgICAgICAgICAgICAgICAgICAgICAgICAgICAgICAgICAgDQogICAgICAg ICAgICAgICAgICAgICAgICAgICAgICAgICAgICAgIC AgICAgICAgICAgICAgICAgICAgICAgICAgICAgICAgICAgICAgICAgICAgICAgICAgICAgICAgICAgIC AgDQogICAgICAgICAgICAgICAgICAgICAgICAgICAgICAgICAgICAgICAgICAgICAgICAgICAgICAgIC AgICAgICAgICAgICAgICAgICAgICAgICAgICAgICAg DLEzUGQtKOLfTZOoTTa9D7dwSGAhCIMxIN8nWIm4Jm5+VGlKQlHyKXM1imFwlQ4GCY6di5XlTEpgEKXs t1ZpMFu2HC0AAUFeTSsyHE4BHFtscj0IFXWxWGQtmIZNb8eiMsUuHCM8ZJRkUyhaUU0GOCPfI5hfvvQn ESZiUBWRYY6UPdZhC1YbsJ24TEDUPf4+DQplbmRvYm mDIkS5HLIdz2BbFLz6MD4SBCZiYecmm3UcRbSgROCDQLybPL4DTHK3JQP1USWkWa7UHFSlP449wmFjGK 3EKq6FWmXxZP0zmv1JRnJhRMXeHlfXFxy3PPolKB0IzBKsYIyOMIJmPATsST3vPlmmVROguJTuIPEUf4 D2RMCiOSHWYKK1VJXlFM6hNAScWSXaHsOwSMZYTT1V OTZnZTWwcHLxADZlMZASHF2BBWlxNRJ8NtdhcrCwfAQeCHohIO4RJNXozhBxJbLvQHLQCYn+Ge8WDX8y k4LtGFziRaTgFU3njd9PZIhTIgIzK2G3fZKaR2N5UAwfYb4JWHKiJSUeCsByARBCTLyyPN7CGI2ahxO1 UJ2KzKXdRZDqODBpsUHpQYk7Z21xvJBvVUhlOT5HGI A+Simin+Sn8APEVrSGBcHHKmOlMhHRAWEhSpJ7TgU0AFs0XnB9CjNM31eOifopDzAZtwWF5MLO5aSDWzHZ FEPI1MuFQhyA0ilaJvGMIpLFCTUcHqH68lvHWlBVGvBHW6QDUsNq6QKNKgR9BvfyRswJgmsrDxIAFaUX GRPG6OWRbwzlMnvFOqoKlgKF12sBeiXW8FIl4OXuYf OS0sdq2FjLYdVu2EFCYyOW2GTYLcLMHfFUJoDBJ1IXQmIwIgWBsqMIGbWZUtFRR8NDEhPNMfGX9DFyHv BCGpJnW7MnMdKSZuJQNhov6MZPCeLLAaVrZ0XBDeHNKfFKToGAnuCCEyOXRlABN1RBRfOFBjOE7FClCr ZWOuSCQ8PwGnODJrBFUnai6BHDPtNFPtFXmnJJHkAK UaNTPeDPhrVUOaVBSuTgkrJGPnHMTyHJ6BTmQhBLRuWKT0SQFwOFSvZQThpf7USBRjLCXmNeH0NGNtTG BgGTItRAhuVROhKEV1SEM5HJOiCGMaHH7QLbCrRZVwSWHrZuTxKGNfDFVtga5NEPQoEXHbAJLzOoFtGB KlVTGuTHgiUWOzJCN0YFA9TTClDWIyBD4RViJtXRLr KTqoNKLqRSNeXWBwgg3MRVAoCNUeTyE0QJGsYJWlADUlMJvoPJPeAWC5OtWuRHUaPUKbNQ8OIjVtRYYh KFf6NirgOFFwCKZqbt5ZUSOeUYIpXKyyNLYpYJFhQPGmTRvmJHRcFOY7YFA4KXVcPSYuOA9SIaEgVCQz KLppOQXpRGHcTAWldx2EXTNwEQShDJV5TINkXJEaSX KkTFmaTQMoYQVwNmZyLWPiKTXwLZ3EEgBaMRNdJrN9CVVgYKTmNOTwnn9CMYPhXEDyHFytEZDvWGDbWY RjVSspSCWxBCWnJqugSUIqIMLdZE8EHaEqRIQzGvCrFAXcXKCcHSTyhd2CMBQwIIPcFlC5AoVySEDjRY XxFSr5dnHlxRPfABc4UG7MF2VxbrDwYrlUCx8Nc417 RFW6BVQiOy0AK5ksTv3lSYYtIRQBXn6VVRe9KyAzDOR0RKK9DGg0G0RcTXTyUgOvRLf2PhqmUCT0OjZ+ WLvnX4OhLMAjYPYcVIjdEHH9ULGvWtR0ZCx0RPBaQVC2Jq0wMOTIJp8+DQpzdGFydHhyZWYNCjIyNzMx TXdpIJGNEq9M ID Date Data Source [id number] 09/26/2020 10:53:54 AM EDT [facility] Name Value Range Interpretation Code Description Data Cinthia rce(s) Supporting Document(s) H&P [facility] XNZRKv1rXlMUUlAv61/KQWbqAHQit6PhWRwqKIp4OLxhDDLuU0WtGBZ1gX5lLBN2DYsFHvLuZeRrZqN8 lbm [file] AgICAgICAgICAgICAgICAgICAgICAgICAgICAgICAgICAgICAgICAgICAgICAgICAgICAgICAgICAgIC AgICAgICAgICAgICAgICAgICAgICAgICAgICAgICANCiAgICAgICAgICAgICAgICAgICAgICAgICAgIC AgICAgICAgICAgICAgICAgICAgICAgICAgICAgICAg ICAgICAgICAgICAgICAgICAgICAgICAgICAgICAgICAgICAgICAgICANCiAgICAgICAgICAgICAgICAg ICAgICAgICAgICAgICAgICAgICAgICAgICAgICAgICAgICAgICAgICAgICAgICAgICAgICAgICAgICAg ICAgICAgICAgICAgICAgICAgICAgICANCiAgICAgIC AgICAgICAgICAgICAgICAgICAgICAgICAgICAgICAgICAgICAgICAgICAgICAgICAgICAgICAgICAgIC AgICAgICAgICAgICAgICAgICAgICAgICAgICAgICAgICANCiAgICAgICAgICAgICAgICAgICAgICAgIC AgICAgICAgICAgICAgICAgICAgICAgICAgICAgICAg ICAgICAgICAgICAgICAgICAgICAgICAgICAgICAgICAgICAgICAgICAgICANCiAgICAgICAgICAgICAg ICAgICAgICAgICAgICAgICAgICAgICAgICAgICAgICAgICAgICAgICAgICAgICAgICAgICAgICAgICAg ICAgICAgICAgICAgICAgICAgICAgICAgICANCiAgIC AgICAgICAgICAgICAgICAgICAgICAgICAgICAgICAgICAgICAgICAgICAgICAgICAgICAgICAgICAgIC AgICAgICAgICAgICAgICAgICAgICAgICAgICAgICAgICAgICANCiAgICAgICAgICAgICAgICAgICAgIC AgICAgICAgICAgICAgICAgICAgICAgICAgICAgICAg ICAgICAgICAgICAgICAgICAgICAgICAgICAgICAgICAgICAgICAgICAgICAgICANCiAgICAgICAgICAg ICAgICAgICAgICAgICAgICAgICAgICAgICAgICAgICAgICAgICAgICAgICAgICAgICAgICAgICAgICAg ICAgICAgICAgICAgICAgICAgICAgICAgICAgICANCi AgICAgICAgICAgICAgICAgICAgICAgICAgICAgICAgICAgICAgICAgICAgICAgICAgICAgICAgICAgIC AgICAgICAgICAgICAgICAgICAgICAgICAgICAgICAgICAgICAgICANCjw/eHLdR8fdzOEiqaP5Z8etPq 9ZZs1YIQ7hw5NwUXBqYKatkhWyBqfZHkWtTWYvVokX Cdk2SZaiRQ8GvYUlG6HiY7ClGRruKJ8TJBUjXVTrbSEvMZBcYTWoSpH5QKTmCMyyGJ5FiXJhHLvtIYFm KWCdMgWzWWJzNE7BXXEuC508bwRmBx2PAn4IFnPuVF4hui8QCrmzAPOxXhyIBxw4QAfqJD9JkPOjcAVg QNRyVPYRRoSwB9efe3LxCdOkDCUQWVlkVD1Ei5FcrU AxDQo+Ms4AUD8zg3LhYZhvGWUuVE2gap5VRRnPPyVcI3CgxHmjZXmzPEMcgLEJyVmwmuLUIBW9UDPoeL dsHfMrEVFwIv69ZrQfCqEyKVD8YPUiVO2eWBmnBD7FYXI0FFgfPJBhQNJtE8kZDzUeYMciYNRcySjcSP 3SDqKtO0ThmnFcsHJtFLGhXQGJHg0+DQplbmRvYmoN NsZsUBByx4ZrKAr1TO5RJDJjGFhpDU3SVUPkmO6lMGqrOH3NZaLpAzDgBCULJjBwF15skMLfNCk6Z8Lq YmVkZGVkRmlsZXMgPDwvTmFtZXMgWyBdDQogID4+ID4+QXlhQL7NHEvebzKnFUIyXj4SBQRqASImUZ8u STQxYIGwD6V9bOiyYNECEpGlV5icabgjKQ7rQFNgY1 35uShfnlHpJEC6MQMvAl2DGLBuZBJ3GDFlhLQhXiktLISSRJgnGI6YoCEwHVH2iM6iUQlcUTSkYYUbM6 pQJbKdhVmiQC63rKijouXiyJEfBId+Nt9DEB0hy9TqIWt9blDqCCyeKDBvPHweJJQoGMQcZYSvPGW7JJ P9QWMCXcSmIGVcDBYaBAfwASCrOGLduq3LECKaGNFk HbS1YTGxLIXcJNQeISdsMTBnFHG4ZXBeDBQfBDZbLX3KKuYzKAJzWHJuSVhaCDAbKWTgfv0BWDQmRWIb TJF8ZYMqCFRjJPAxRKvlRBVwBDP9KDN5OZPxFUVyTX5ZTzWsAXFhLQbaGKRlMDSeDEOgra5LTJGsMFSe KEF3CWDfTWCvRXQeHVusDHGuFWR1DnU8BHCcXDLvNH 5PMdOcNORbNNa7SMhzJMHaRMIxmh8FXKFdLWIlCArmDiLfHFCaIAHfOZahDGQyASViEnenMTQlKLVxYF 2YCkAkYUMnAMC5EKWmOLWaBGTyyf8FXSBmPVTfPIX0XoOzLJOuJWMlMXnuXOKnINJeXMYxIPUjMWRmOS 2QFlPgPORrZXJcPgjaRRJnFCShud4GOCHpONSqMmQc MWKwXAKtDKOpFHabCVDcWDJeAjz6DZPlDBZnVT6TKbYnRTBtQNR0PIhxJFSzWPBmsj1HLOZpSYSuVor0 TfFfBXJoGNRfSKkrGSEhMEUrBqloVOVpLQLpHT9FNjQrLGNtXqU9KkPzAHGiVPFvsg8RXUBuEPVePwN2 CTXtAAOeOMZcSPyeSUZfHJUyHfE0THOyCSTgTS5AZh EgRIIeSuO0BmIiQXVtRXIsie7GHOUdQJYuSoE9HeByBXJjZLHqWIvjCAOcNSAfMdN4OPLbEMByNA8XSl UyDGVxKqI7LGCrBXQnKUNuzk6EZBZsEEHfVPV5LTEmYFHcDLInRVgrAHTsPSD0LyD0TZWyNGXnMD6SCk YlOHBbWpB0JNZjSRCbNNWbbj3NzSAjlEylzy2CXYzF Gj9EmSviLDIwWPypEh9akBThLYBbEQTVNk6MpfBoCAGlUIOOBAfaKEXaCJDiY5L2KQvuOyG8KBN4MQF8 ImL3KZKxKoD8YCJ5PFQ1ArJ4UYYfKSneOUCoMmW2NsQ3Afz3NOL9IyN6MGolVTp8Fwd+NH8sSDx+Pg0K e8ImrqW2zsVhVLwhEBM4Ps6ZBFTPO9HITw== ID Date Data Source [id number] 09/26/2020 08:59:21 AM EDT [facility] Name Value Range Interpretation Code Description Data Cinthia rce(s) Supporting Document(s) ED Provider Notes [facility] CGJNRp8zZeUQChRq79/AAXplYOPme3ExIUhiDQe3JVahILZsH8CvDSX1dZ7cJFR2JBnFUpFvCoMxBsU3 lbm [file] VofC+AyeGmznt6Er1Cb3vvBI/SWCnPurkxqFArYKkdsqT4DpzzksWPuN0sX7b/aL/vázquez+mDnq5ob3htjk [file] MT1ZHq4YCgK6MDK5vHYqBk2GLdMnXjCUQnZeLY3XWUs= ID Date Data Source [id number] 09/26/2020 07:33:20 AM EDT [facility] Name Value Range Interpretation Code Description Data Cinthia rce(s) Supporting Document(s) Nursing Note [facility] VGUWJy7eLfXTHjYt02/EIOzmOQRtb1FtHJhnJMb8ZAwrCURyW6ApHXM1hI6qFEB7ERhQOwPhTrRkZyY7 lbm [file] ICAgICAgICAgICAgICAgICAgICAgICAgICAgICAgICAgICAgICAgICAgICAgICAgICAgICAgICAgICAg ICAgICAgICAgICAgICANCiAgICAgICAgICAgICAgICAgICAgICAgICAgICAgICAgICAgICAgICAgICAg ICAgICAgICAgICAgICAgICAgICAgICAgICAgICAgIC AgICAgICAgICAgICAgICAgICAgICAgICANCiAgICAgICAgICAgICAgICAgICAgICAgICAgICAgICAgIC AgICAgICAgICAgICAgICAgICAgICAgICAgICAgICAgICAgICAgICAgICAgICAgICAgICAgICAgICAgIC AgICAgICANCiAgICAgICAgICAgICAgICAgICAgICAg ICAgICAgICAgICAgICAgICAgICAgICAgICAgICAgICAgICAgICAgICAgICAgICAgICAgICAgICAgICAg ICAgICAgICAgICAgICAgICANCiAgICAgICAgICAgICAgICAgICAgICAgICAgICAgICAgICAgICAgICAg ICAgICAgICAgICAgICAgICAgICAgICAgICAgICAgIC AgICAgICAgICAgICAgICAgICAgICAgICAgICANCiAgICAgICAgICAgICAgICAgICAgICAgICAgICAgIC AgICAgICAgICAgICAgICAgICAgICAgICAgICAgICAgICAgICAgICAgICAgICAgICAgICAgICAgICAgIC AgICAgICAgICANCiAgICAgICAgICAgICAgICAgICAg ICAgICAgICAgICAgICAgICAgICAgICAgICAgICAgICAgICAgICAgICAgICAgICAgICAgICAgICAgICAg ICAgICAgICAgICAgICAgICAgICANCiAgICAgICAgICAgICAgICAgICAgICAgICAgICAgICAgICAgICAg ICAgICAgICAgICAgICAgICAgICAgICAgICAgICAgIC AgICAgICAgICAgICAgICAgICAgICAgICAgICAgICANCiAgICAgICAgICAgICAgICAgICAgICAgICAgIC AgICAgICAgICAgICAgICAgICAgICAgICAgICAgICAgICAgICAgICAgICAgICAgICAgICAgICAgICAgIC AgICAgICAgICAgICANCiAgICAgICAgICAgICAgICAg ICAgICAgICAgICAgICAgICAgICAgICAgICAgICAgICAgICAgICAgICAgICAgICAgICAgICAgICAgICAg ICAgICAgICAgICAgICAgICAgICAgICANCjw/uMBhO2flzOTuahK2A6kaEs1LBk1WTO9tl6SiKXDaNKei zeHyDisPLfDpFJJsNgjRJvh7HHayCJ3CaPAhO3SnY4 VbLSfkJJ7TQBHlXTRnuOQkVCYhHXDoWeG8ANXkYFksVL9JdIKnOQtzLOJhYLKrJG2FNJDoH056teJlPQ 9IAz9IOvXpFW4agh0ZFaWkCRLzLutWPhp3CPubJM5DpYAbeJZxKgKeADGPPnKgA7lzq6KuQkmyEFGUNI ndNR8Jl6InbQIeNBx+Wm5RMJ8se9QkTVcjNjCmPX3d lh3MMWqUJsWhU3ThhNakIQ69zpBuhmfrZb34VOScxMMDBNZdqTKlKodmO3hsMNKMDYX6MMCvON7fVSNt FYK3IbFwNPOQJD5ZAWUsDIIbaMPrNBHvMGOULH3ERNxqYZF1DtubcgJehADcUXggRF7JLWXakeSaMxMk MCBSDQo+Uk8CKW5li9TnMXtgMZQyBH5kmk6JOFyEFb SoV0Q3zHApO9Q6ZNsdHb4TMGYiMLYoYpUeAZYCAGyvOY4FVK0djuP3VQ1TzAHtZCMjTMRbuYRtSOe2A2 8qkPAgCQkmKL9KJFY+Simin+Hz0WONKkHZRiCZNrXxMiICCHFjVaA8JpN9SJh2CjK5UxKV83lLbchqEzER viZW8YHJ7wOSYaYCJXII1UxVQihW8tcgIqOgSoRSLQ AkRnS92wkDFkXQZuTYK2DXRrDp4PZDElL7HfivPqvEdiriJuXVBaHUFWVT3IQRwuggWvsSCpdKjnUG36 aMcuYX6VVq2HNyKjQX9iic1PkOClNy2DEIPyRP5VVKBdRMIpKBZwWTA9MLZvJkFcEYfgYZMdNYFuDJB4 UZXwPJRwYQ2XYnJyQCYlOnEoPIDiBJNpHJUzxr4ARV PoZPAsPZe6QeOgZCAxXMFvZZqrONOqNZBfEMK6GIOwZAQjXI1TTiSaQYKyGGEaPoNyXXFiTJGbsk4BZV XiAXXkHVK9UYHnZIXoFFMeBIspZYIkRBKxSiM2XSTpAHSxRU3WMrCrQSRtWXC7OnghXBLhBAVhip8QHF AwMDAwMjcyMyAwMDAwMCBuDQowMDAwMDAzNjgyIDAw DEAcLU3YXeLwPDZnLPD0ZsybEXDpXTVdra8PKODzWKLxATE3QROaMDHaFPCbKUezPERvVSA2RRSgLAUx INPwXS7IGxHhRLLtZCT5UcAfPDPzCFGnfj4EANNoYJCbPgudBYBsZUXqGVKzNYjdDIUyNFT9MSy5GBPi WRYeWS8KWuFzMXHbMMhjDbQoOKRiFHOwdf5MGMRmAP GoAFY7UbXdIPGjAIBhVOsmJOKcTYF3DTK4SEUiBGDnZD0ABhDrDFXdNSu9GbUoKPJkYJDadk4JQVQwJH QcIYg5RTSiLYZlGKQkPOnxWBRqHBPdTNq9CEZzXZBtPQ3JNtOpDMDmJxQ1DGUmNIMwMGKusp8GQAOpHV JbWPJ8OSRwPZZcKWWiCHcmAIQeQHI6SARdDBYtFNJh RW2QVoQgYIFnAfV3RBFkGRGkQOMcfb2IDRWoCFLlMbJ8ELMiIVMsYQCfKCgiSCStDHW5QLn1IVTfLNZc WI8HZvGwRAbiLEFHDtc8KEzbH3s7ULGwQL6IR0Owo8UkGtyuTUEDUBkyXH6wzyMwIWCqUu2EV0sXJxiy FFExQ5Z4PDSrUMBbUJSqFsZ3PcQcCBDqKWFcUWWaBG 0tZWHaJcJ0CoFuTzS0KdEfD5G3OvX7MsOfKaL5DYMvM5NwKuUqIH6GSm6ECnJ7SLI1zPKuYa2BHaI4Ct dUQbEvRD1ILLq= ID Date Data Source [id number] 09/26/2020 07:34:00 AM EDT [facility] Name Value Range Interpretation Code Description Data Cinthia rce(s) Supporting Document(s) AST 20 IU/L 15-37 Normal (applies to non-numeric resul ts) [facility] Sulfasalazine and sulfapyridine have the potential to falsely depressAspartate Aminotransferase results. Baseline values before medication administration are recommended. ALT 16 IU/L 16-61 Normal (applies to non-numeric resul ts) [facility] Sulfasalazine and sulfapyridine have the potential to falsely depressAlanine Aminotransferase results. Baseline values before medication administration are recommended. Alkaline Phosphatase 68 mIU/ml 50-136 Normal (applies to non-num aries results) [facility] Total Bilirubin 0.50 mg/dl 0.20-1.00 Normal (applies to non-numeric results) [facility] Blood Urea Nitrogen 10 mg/dl 7-18 Normal (applies to non-nume ami results) [facility] Creatinine 0.90 mg/dl 0.67-1.17 Normal (applies to non-numeric resul ts) [facility] N-Acetylcysteine (NAC) and Metamizole vázquez ve the potential to falselydepress Creatinine results. Baseline values before medication adminstration are recommended. Patients undergoing treatment with phenindione will have falselydepressed results. Patients on phenindione therapy should be tested with an alternativeCREA method.Toxic levels of acetaminophen may lead to falsely depressed results forpatient samples. Glomerular Filtration Rate >90.00 mL/min/1.73m2 [facility] GFR Reference Ranges:Normal Function or Mild Renal Disease,if clinically at risk:>or= 60Moderately decreased:30 - 59Severely decreased:15 - 29Renal Failure:<15 Please note that the MDRD equation requires an additional adjustment forAfrican-Americans (multiply the GFR result by 1.210).Glomarular Filtration Rate (GFR) is estimated based on the MDRDequation, which assumes a steady state for creatinine (Nahed Int Med 139/2 137-149, 2003), as recommended by the NationalKidney Disease Education Program in conjunction with the National Institutes of Health and the National KidneyFoundation. The [place] method used in calculating this result is traceable to IDMS standards. Glucose 96 mg/dl 70-110 Normal (applies to non-numeric resul ts) [facility] Sulfasalazine has the potential to false ly depress Glucose results. Sulfapyridine has the potential to falsely elevate Glucose results. Baseline values before medication administration are recommended. Calcium 8.7 mg/dl 8.5-10.1 Normal (applies to non-numeric resul ts) [facility] Total Protein 7.0 g/dl 6.4-8.2 Normal (applies to non-numeric re sults) [facility] Albumin 3.6 g/dl 3.4-5.0 Normal (applies to non-numeric resul ts) [facility] Sodium 139 mEq/L 136-145 Normal (applies to non-numeric resul ts) [facility] Potassium 4.0 mEq/L 3.5-5.1 Normal (applies to non-numeric resul ts) [facility] Chloride 107.0 mEq/L 98.0-107.0 Normal (applies to non-numeric resu lts) [facility] Carbon Dioxide 28.0 mMol/L 21.0-32.0 Normal (applies to non-numeric results) [facility] Anion Gap 8.0 7.0-15.0 Normal (applies to non-numeric resul ts) [facility] The above 16 analytes were performed by [facility] [address], ,[place] [address] ID Date Data Source [id number] 09/26/2020 07:34:00 AM EDT [facility] Name Value Range Interpretation Code Description Data Cinthia rce(s) Supporting Document(s) Triglycerides 82 mg/dl 30-200 Normal (applies to non-numeric re sults) [facility] N-Acetylcysteine (NAC) and Metamizole vázquez ve the potential to falselydepress Triglyceride results. Baseline values before medication adminstration are recommended. Cholesterol 156 mg/dl 0-200 Normal (applies to non-numeric resu lts) [facility] HDL Cholesterol 65 mg/dl 30-70 Normal (applies to non-numeric results) [facility] N-Acetylcysteine (NAC) and Metamizole vázquez ve the potential to falselydepress HDL Cholesterol results. Baseline values before medication adminstration are recommended. LDL Cholesterol 74.6 mg/dl 0.0-100.0 Normal (applies to non-numeric results) [facility] Cholesterol/ HDL Ratio 2.4 0.0-5.0 Normal (applies to non-n umeric results) [facility] LDL/HDL Ratio 1.1 [facility] The above 6 analytes were performed by [facility] [id number] [place] [address],[facility]#: [id number],[place] [address] ID Date Data Source [id number] 09/26/2020 05:34:23 AM EDT [facility] Name Value Range Interpretation Code Description Data Cinthia rce(s) Supporting Document(s) Nursing Note [facility] WCTLHs0qPpUPHoJx78/DMMhrPJMnv9XzBDipLGs3IMnqKTJzW6ZpLNK1fW0cFQC4NPhWFdXiAwVnCzZ5 lbm [file] QIs8VmCoSdy9UBRaVYHmJ4JlDpFnWZ6QGh4YGzB6JAZ4jQIuSb7OVxD2GMpBDgRbNC2YHHx= ID Date Data Source [id number] 09/25/2020 10:28:42 PM EDT [facility] Name Value Range Interpretation Code Description Data Cinthia rce(s) Supporting Document(s) Nursing Note [facility] HYTTPt6sYxNWQcXn62/EWXxhGTMws8FqIKxmLWq0IQhaFKApL2MiXFE3wW9wKKB0LRxCHtJlFkElBnSz lbm [file] BZHzOMouFAQ6QGJ4ODUlDPN8WpXeQbDxEQ7GTg5VVbZ6CGT2gAEaLr5IToS9OQgLLmHkTH8PJZw= ID Date Data Source [id number] 09/25/2020 08:59:37 PM EDT [facility] Name Value Range Interpretation Code Description Data Cinthia rce(s) Supporting Document(s) Care Plan [facility] KDCIFp6mWlALHqJy71/UFYagOKWto6SpQCeeZUk5XEcvTYFpC2KoWEN4pT8qCAJ6HOdMYmWiOqEgXlUr lbm [file] OTkxMSAwMDAwMCBuDQowMDAwMDIwODUzIDAwMDAwIG 6AKoZlNWKuYuQgBNNbPKSoEAPawt8WMZZjXZHnOMEtSkEtTJEcKGEgBLtvOVAmGGAmJMk4BMMlZRQcWO 0PKkScTKYgWhSvGtIfLWSsDSCgxw0GKADpGPBsRsDdYsCtBHUoHPSoHGttNPIzHBNmGHpjPEJpRFXfIL 3SMlMcRTCxCoD9NYCaDMAiJIBqrw2DHFVxKILgHJG2 WNBvHUTlWYEeDYldZPIlSPC5BqG5YZVdYLPoEB7PCsUyRZfgEJFRHuk2OPcuW4w4DKMsAK6CA6Duu4Qq UpagBXQCXUbxOX9lzaGhUUErJr5GS8mOMbfrMYB1KdBtVpB4TnJ0FeShAEB5CshiOZYrSOszTsDfHk6x OCBnJZO3LPEaGrswKmt0WdJbQYAkA3JvXIAdFGXtTA IaSdPdCB3RKe2BKfQ5TEX5tLVzJl7ILbM2PcUQXrMqTN7BGGz= ID Date Data Source [id number] 09/25/2020 05:37:12 PM EDT [facility] Name Value Range Interpretation Code Description Data Cinthia rce(s) Supporting Document(s) Nursing Note [facility] OURGJf3ySbSEGnZp32/EGPajQSAxw5HxZDniLGn6OMfdRMIxK5WtDAZ3oK0ePNM1JNvUVxFiDtMdSqWr lbm [file] AgICAgICAgICAgICAgICAgICAgICAgICAgICAgICAgICAgICAgICAgICAgICAgICAgICAgICAgICAgIC AgICAgICAgICAgICAgICAgICAgICAgICAgICAgICAgICAgICAgDQogICAgICAgICAgICAgICAgICAgIC AgICAgICAgICAgICAgICAgICAgICAgICAgICAgICAg ICAgICAgICAgICAgICAgICAgICAgICAgICAgICAgICAgICAgICAgICAgICAgICAgDQogICAgICAgICAg ICAgICAgICAgICAgICAgICAgICAgICAgICAgICAgICAgICAgICAgICAgICAgICAgICAgICAgICAgICAg ICAgICAgICAgICAgICAgICAgICAgICAgICAgICAgDQ ogICAgICAgICAgICAgICAgICAgICAgICAgICAgICAgICAgICAgICAgICAgICAgICAgICAgICAgICAgIC AgICAgICAgICAgICAgICAgICAgICAgICAgICAgICAgICAgICAgICAgDQogICAgICAgICAgICAgICAgIC AgICAgICAgICAgICAgICAgICAgICAgICAgICAgICAg ICAgICAgICAgICAgICAgICAgICAgICAgICAgICAgICAgICAgICAgICAgICAgICAgICAgDQogICAgICAg ICAgICAgICAgICAgICAgICAgICAgICAgICAgICAgICAgICAgICAgICAgICAgICAgICAgICAgICAgICAg ICAgICAgICAgICAgICAgICAgICAgICAgICAgICAgIC AgDQogICAgICAgICAgICAgICAgICAgICAgICAgICAgICAgICAgICAgICAgICAgICAgICAgICAgICAgIC AgICAgICAgICAgICAgICAgICAgICAgICAgICAgICAgICAgICAgICAgICAgDQogICAgICAgICAgICAgIC AgICAgICAgICAgICAgICAgICAgICAgICAgICAgICAg ICAgICAgICAgICAgICAgICAgICAgICAgICAgICAgICAgICAgICAgICAgICAgICAgICAgICAgDQogICAg ICAgICAgICAgICAgICAgICAgICAgICAgICAgICAgICAgICAgICAgICAgICAgICAgICAgICAgICAgICAg ICAgICAgICAgICAgICAgICAgICAgICAgICAgICAgIC AgICAgDQogICAgICAgICAgICAgICAgICAgICAgICAgICAgICAgICAgICAgICAgICAgICAgICAgICAgIC KgNDVyZULzOBTdGXCeQZPdUXEzCVWoYBGcDSYcEAPpCGCtDSRmZNNjJLWxGNKmWEn6K6kxTSYxTAAhSK 8nFJf4Hg7+OSxIExMiOCF2jbTlaK5DTG7vo5AgAHwo QNVya3EqCOo2QK9HYYUzMGsrVM8DBXldfy9CZXTlTCIaoMHDa3qdLiHkXCN1TBCsIpfzUB6EQENaF9tw mnQzVSPfISUUVO2VXbBmU7VndR08LFEBXu9+KFpuzeBnAquJMpCvUAMat1BiSFk1CL6OZCUfKzono4Nn KgSnQHGSRZbjUJ7THMI9IJEkOSOqUb4LAJLeV875ni AxYU7VJs9OEaDsCT6yns4VBvJrEIXsDzsWFpd1FUgoCN1RqHKzJIdKnFRrrD4aPA3ppRZlTtgpWdQzLG TdAPHOvFXwLJAjDFHGIlHszSQ7ApNzJeHeQTVjUDvxSJENENmWJmCeF7Zje2XmTgY6OMHoJyKbNXmpFC OrFnO2RY42uVxiHP3AVHEjATJtRI68ZNSzMWZyUj7X Lh8NRqSjKN8pfd1SXeOpNSAfOjyGKuy6VNujRY0IzIAsB7HrxJTvb8ePWdZmM0QXHCZkQOIcFy3TNQUb ZoGvFSCkABivUJ9pZLEsQYRCvAjamuQ0GO4BLI9dbiYxBN7IBkXtFs9xGj0LHcNdD4EpV9WxZTYkBLAG DJpzMB4IDVedKQ2yGZ8Zc7URyWTlkO9oaa8CFEMjWG DoFavefv6HUwqyT8J8pTwyBSQpZnJeBDBRSTtoAK7JWPDjXEW9BTWiKHLrTJWTSuZmC30zTL7UY7Wcj4 6lGmY6OLGwUeUtKIhhQR28lIyflfLthRTvvUnwSU2HGe0+DQplbmRvYmoNCnhyZWYNCjAgMjUNCjAwMD OxAHVvZPNyQyH1MbLqNe2WNAXnKXNxAIOiDzTjHTYe HWWqCZmqQEApHNH7ZHM8VNGySLFgXV2VJfBhRPIxWuTeAFZkNGIfSRZhuo5ZTNHgQZAbMAX2IpIkOAXp GBGiMWxoFPWhPKEjWRo2CIIoOSTvQQ0IXsLeNPCzMTOjHYAlKRLbYAMzei3QFSPcGJLnKaZ1GFVrXRBy SBJkGSjbVOZtUMMiBTVlBIIjRVMmHR5IUxYdXJDoMK M4NOPaCRGgFXHhac0XUDUkYICiHkAeRAVdFWKuDJDbTRdqLRMuBUVdIOKeMMTpFFCsLO2UTzAoOPLfFQ L9UCSsLZSyRGGxfp5CNRLzVTXeXiZqYpEhEIRhHYYtAAcsOPZePTO8FtR2OKOtGBDqCH0NDaQbCZEyOJ R5TGyjMTOmOJSpas6IUNHcNIVsVpT8SEObDDYuNTYd OHsxDUUaJWK1SxM6LVHdCWBrZB9CYrObSZNpLUauTSGlJTJyGKXmqq6LNHOmYNYsAFF8PSYlLBViUBWi FNzmVIUrRNX0MYR0UETvBSRpEZ4FZhRcHKOjZMx3FqCdXSXvZMNloj3SASFlBSKjSVC7PLWyCLMhOQQq AIykXNZhILVkLIP6JQJeYNWvRF2WAnAoXCLuFjP8AL EdFSHoBIIfgt8VtRBmaExrgd2FVPdMBh2PfLeeFPN3SHmeTj2ixHRrMRTeIIGVDw7HhgMuVQNgDNITWJ roVEMzOXd8EpH6L7ThBvSkSNR3HaP6RPSnT5LdZlw4M4ZdU8V1YrJ1JGbiSJSbGqTrNqNaJAL8ItWpWI PqCVA4VXzbC7R8BNG+AJ7zWFj+Vt5Ez0IfchZ8oyKfGAruPIb9AY5FLNMJO2JKUs== ID Date Data Source [id number] 09/25/2020 05:29:41 PM EDT [facility] Name Value Range Interpretation Code Description Data Cinthia rce(s) Supporting Document(s) Nursing Note [facility] XRKGBv0eSqJSVnEl26/NEYxcCIIew5FoDKxbIRd0XRcgTXCcR2WnNMA8aK1ySYO0YGlDAgEeBxVlSoSa lbm [file] U6dCXlPo4IUwX6WEDEKxIfBJ7SYWj= ID Date Data Source [id number] 09/25/2020 05:05:31 PM EDT [facility] Name Value Range Interpretation Code Description Data Cinthia rce(s) Supporting Document(s) Care Plan [facility] FTLCJu1sEaVFPoKa72/UEAjfQUBwk1EgIYvaEWi3FMsfSXZaC8JuSFO0nJ5wRUS8ZUrMOfRySuUkIkFq lbm [file] MANAGER MISSION+Bc5RCJUfAOn6I2M4YNFzSPm5X5DOY3BWBVJsNIqpXDiqBXSfIMf8B4Z4WNLeJ1ISK7Drfnnnwg4+ GS7AX28ALSQqUOj4R0N5aEDvR9W0hYjXjYG3AG6ESI8PrYb7pBNsnF9+AL2MH3YVGvWaHGm8Z4G6iLGu Q1Y3sZsGhAK0EG4GOB7RlKGlBPNtwxWvQn8aO5XORG iPTeSRTXS0PD3FvXVkTT7QgKGWC3VelUPzBr5pKThmyRGrtR6nWk5fRKkeRT7NFbKKGKgXBZP8YQ4GkJ XgDP4NjUSVC7GmuTYdCz5pMKvvpJSuyw7+LV3OTUCvFp8LEo1+NYnmviTjHxfPPiA5EYXlh9WiXKv8GW 9FUP1spZtoCFW1Qw6JmCF1iNLzW3wKZH8DdGZrF14k yQJzOHCrZf8QLqH5vhLdkH0PEK32wRIzq5D3OOKhC0wzRXvvy12dJIxoCXaSPX0pUGCUZYobXWefFMD1 HjVbtcjyWXUtGs4XIhJpGEc4aO3bcGF6NDT7VmzxhCQlITecTxOqPmHqCxQ1zGwsyur2EYafJA5mJTly czptZXRhLyc+TIqwCAUvMMJmHixXKSStzW9slwX7mg IuGRjvjBUnRx3yo5a2QvjhAf4tSh1rPIk5AsKzBiCkDBKdVu6dlN18TJbyoyWhHp4DIgAcFVZ6S9QqQb pSREY+VIhlWZklxRg8xHZkWPCdYg3VFXNnOQDrLHDhYLMeLALmCSYiQWRhYNBoCUFvXKVeCGBlMVRlCJ AgICAgICAgICAgICAgICAgICAgICAgICAgICAgICAg EJVlCVUrLUQmHBKzRXYqSPVxHNZkWCQdZDZqXCJwOY5WRTOgBCZqIPGkSOMlXLFuTTBqXACzJVNoSLYg ICAgICAgICAgICAgICAgICAgICAgICAgICAgICAgICAgICAgICAgICAgICAgICAgICAgICAgICAgICAg FFOsKFSjZXGzNKVaSV0YBZBrLRHnUXOaKEGtQELeXW AgICAgICAgICAgICAgICAgICAgICAgICAgICAgICAgICAgICAgICAgICAgICAgICAgICAgICAgICAgIC BzETYbNBZfRIGfJURtFVAxZBVeQVSfUW0RHEOlLXTsJTNmAKKpRBUyASVgPDTlFOTtVIHbRNTmYYEkDM AgICAgICAgICAgICAgICAgICAgICAgICAgICAgICAg IQCmSILdDADfITMnBXUrPKPwYWZpOPVlTEXnQFFfEVPeQB1POPPzWDIoPNMhTQCmPMKrSFCmUSHlBWEs ICAgICAgICAgICAgICAgICAgICAgICAgICAgICAgICAgICAgICAgICAgICAgICAgICAgICAgICAgICAg ASBoRORyPEVjCXYyGYEaBJ6JIZNiWCHdDINlABXgCT AgICAgICAgICAgICAgICAgICAgICAgICAgICAgICAgICAgICAgICAgICAgICAgICAgICAgICAgICAgIC YcVZRwKFSaMDFsFENwZGGrIARnILSqPAMvGK0CIHQmTBImKFDpKOWvYHToGVEvJCAyEUBcUITqARYeWN AgICAgICAgICAgICAgICAgICAgICAgICAgICAgICAg ETVzGQXuEZPpLVNcXOKqCCKyOUZlOEQmUUOaKJCoXZXmVNYoVO4LFWRaAOWyICJjBJDlTICqFMKvDMAz ICAgICAgICAgICAgICAgICAgICAgICAgICAgICAgICAgICAgICAgICAgICAgICAgICAgICAgICAgICAg NSYqCVQpKSRaXTZnTEUlAUVcUJ2CTLUpVWHwYSNfKT AgICAgICAgICAgICAgICAgICAgICAgICAgICAgICAgICAgICAgICAgICAgICAgICAgICAgICAgICAgIC QmLNFyAFLkDBUkLLCoRFBsHOCaXGJeOXRfANMnSG7AKUNbBTJqLVScCFRoRQRkFBDgEKQgFJQzVDCbLN AgICAgICAgICAgICAgICAgICAgICAgICAgICAgICAg KFTkDRAtXBLjCYDbACXtZLRgUGYjIUCfNRQnNOIqUXFpGETqSORkPM1RKP56cZJuv8A3MFRhAR2ffah/ Vr1JBCtoojVryVNoVY4WLiDkZX4fvu8EEyEpLK4kqk5HTTfNUcBcA6W5nPRfAOKkTPVNPuRfX02rKJsb Ny78SFnyLWPcEuCoGFh5Zd8OKtZzH8rgUGMgHaL7JC OxRwJ0CBSaNyUnADzdLJ0Ww9LfuYSzEVq+Gl2NQG3lj4SiCAdnKlRcEN4dlf5PVCfKFzClW7RbnuL4YK I8ZSGtKn6UMIBuJNDsuSDdEBHiZDUMFtUjK0QsfG96FYWTVc1+ABumqcImRtiDDdH2GQNcq7HmDFx9OC 7NLGWoBXt3aMRkB2BeKFQJoHBpAZT3JI0dfLbhj4Op Am7jjIWmONYQJkOfjBF7WqCcRiEoMCRgRJrpUUCSZXjMNfEjQ1Opz9NwOmJ2BMAyAvDvLIbiDGGdVjD3 QA13uUekUM9YKQSbZTQsMO27ZQA6ZQJiKj2SGy5RArRySL7vea8LXnxjBFNvLcqASps1MKjfBO0LzAZd U0PcpPIrb3sOElWiL4LFNPP0TYNvAa3DEUKqKjNzGR TnEKbxWV3pPXTuQGQLhGsuowC5BL2IAG0qxdDvAE2NMlVfFu9eHi7TTaOlT1MuH9FfBZEeGGFSSAngWS 5PPLzyLG7vCU8Im4GAyRHfnF7ptx9SVWUuWUEfBjupbu3PEjlwO1Q2oRasQYWuXcrgSJSHXYllLV2HNB DlIBK9XPQwKgMsSEVGUkCuO17jZT1ZE7Rei27bSwB2 KQNlBpXnTGgyQU24tLdpyvArrPSktRcnSE7VGd7+DQplbmRvYmoNCnhyZWYNCjAgMzANCjAwMDAwMDAw MFMdKkV7SwBnAs6LBWAjDYHbYYEfRkBePIEjPOVmRRtnIUSiNSNiElO0BBGiCGOeDG2ZEkRdLKVbXpT7 NRClVMYnZSNwgg3WYLTxCCArSIJ4QjUvUJBcCBGbXO uiPQMtJGAqCFt5GXSxDGVhGL2ZSgSwWABrLPKmABCxLZExNZZcbr9ULXTyYDOoUac4XmJpFOHuAAFmQG xaUJHaXEVwNZnmGPMmQWPdQE9QKgWoLPFoUZSaWcksOSUmMSNtbb8JVOKbTZJyRDVzXFGvENVxTIStRJ nnHASyIIC2DBE6GHKbINAeUG2VKbXpIMRnQGGeUzLn AKGnWAMypo7KPQOuBAHyBBB4OcJkIVKiGPKhYCzgLNXpLEK4JyV7WGRpACPgMO9SJuEcHNSaWSsaGRGo ZOZuVYJghk1NQYPiHCQnSJIbRZWaSDQoOZMqPWrtMKHcLKO5NkSgQOYuYYWzMA5ANmJrXKMwZRq2WvFs SHUaFWAwpm1EHHMuGSHcKZYaCnYkDZOiUOXkROvqWE JyPUS5FGX5OLEeUHZmNC3QScNvHJOxYpQlODSnCBKvFBWbab6RHBYaTYGeDVSaPoFoAQXoXGJtTPtgPI VaBCWbWiP1XATpVSPdPU1XBnXuQIRyVsP9XHKyYTUvKWXtsz7HXJDaHFIwYSV7UrCgRHVsVDKtYHntLD NpILJmCXz6FHLuDANtFB9ZKuEbSOAgGdX1NQnjNHDm KKLqat1UNZPlBDPbFlH9WHXeUGFkLBHiQZhxJXClRSNkUrTpBEPeDQLwKB1GAjPwNLajNIZUDva6SLvi A9z1MHAmYS1TM7Ikc7MnUweyHCCNSCzpCU9ygcZrXVSpGn1XY9eDUhagWyYlAIO0SHgaDoVrUgjfQzN4 IYCaP8FoXJNhUDNvLF9kMNYkZSA1YSL9BpJmBNSmM7 WvSWY7PJVeWULsSUEiAOHsRfUnQT8JZc3VNmY0NNH3iASgIk1FIsM9QajQNyVtBC0FKYh= ID Date Data Source [id number] 09/25/2020 02:49:18 PM EDT [facility] Name Value Range Interpretation Code Description Data Cinthia rce(s) Supporting Document(s) ED Triage Notes [facility] XYZPIm7yZuQDZxWx64/VBQakVKCsh5BoYQggCRk6OBrgPMHlH9BwLAP6cB0uELG5UHpFOvFyUbEeTrOx lbm [file] [id number]= ID Date Data Source [id number] 09/25/2020 05:14:00 AM EDT [facility] Name Value Range Interpretation Code Description Data Cinthia rce(s) Supporting Document(s) SARS coronavirus 2 RNA [Presence] in Res piratory specimen by JAVON with probe detection NEGATIVE [facility] This lab was ordered by [facility] a nd reported by [facility]. ID Date Data Source [id number] 08/14/2020 12:21:00 AM EDT [facility] Name Value Range Interpretation Code Description Data Cinthia rce(s) Supporting Document(s) SARS coronavirus 2 RNA [Presence] in Res piratory specimen by JAVON with probe detection NEGATIVE [facility] This lab was ordered by [facility] a nd reported by [facility]. ID Date Data Source [id number] 07/12/2020 03:18:00 PM EDT [facility] Name Value Range Interpretation Code Description Data Cinthia rce(s) Supporting Document(s) SARS coronavirus 2 RNA [Presence] in Res piratory specimen by JAVON with probe detection NEGATIVE [facility] This lab was ordered by [facility] a nd reported by [facility]. ID Date Data Source [id number] 06/23/2020 10:30:00 AM EST [facility] Name Value Range Interpretation Code Description Data Cinthia rce(s) Supporting Document(s) SARS coronavirus 2 RNA [Presence] in Res piratory specimen by JAVON with probe detection NEGATIVE [facility] This lab was ordered by [facility] a nd reported by [facility]. ID Date Data Source [id number] 05/13/2020 04:00:00 PM EST [facility] Name Value Range Interpretation Code Description Data Cinthia rce(s) Supporting Document(s) SARS coronavirus 2 RNA [Presence] in Res piratory specimen by JAVON with probe detection NEGATIVE [facility] This lab was ordered by [facility] a nd reported by [facility]. Procedure Social History Code Duration Value Status Description Data Source(s ) Smoking 02/18/2021 12:00:00 AM EDT Unknown if ever smoked comp leted Unknown if ever smoked [facility] ([facility]) Smoking 10/31/2020 12:00:00 AM EDT Unknown if ever smoked comp leted Unknown if ever smoked [facility] ([facility]) Smoking 10/16/2020 12:00:00 AM EDT Unknown if ever smoked comp leted Unknown if ever smoked [facility] ([facility]) Alcohol intake 09/25/2020 12:00:00 AM EDT Current drinker of al cohol (finding) completed Current drinker of alcohol (finding) [facility] Tobacco use and exposure 09/25/2020 12:00:00 AM EDT Never used co mpleted Never used [facility] Cigarette pack-years 09/25/2020 12:00:00 AM EDT UNK completed [facility] Cigarettes smoked current (pack per day) - Reported 09/26/19 12:00:00 AM EDT UNK completed [facility] Smoking 09/25/2020 12:00:00 AM EDT Current every day smoker co mpleted Current every day smoker [facility] Smoking 09/09/2020 12:00:00 AM EDT Unknown if ever smoked comp leted Unknown if ever smoked [facility] ([facility]) Smoking 09/03/2020 12:00:00 AM EDT Unknown if ever smoked comp leted Unknown if ever smoked [facility] ([facility]) Smoking 08/20/2020 12:00:00 AM EDT Unknown if ever smoked comp leted Unknown if ever smoked [facility] ([facility]) Smoking 08/07/2020 12:00:00 AM EDT Unknown if ever smoked comp leted Unknown if ever smoked [facility] Smoking 07/24/2020 12:00:00 AM EDT Unknown if ever smoked comp leted Unknown if ever smoked [facility] ([facility]) Smoking 07/16/2020 12:00:00 AM EDT Unknown if ever smoked comp leted Unknown if ever smoked [facility] ([facility]) Smoking 07/10/2020 12:00:00 AM EDT Unknown if ever smoked comp leted Unknown if ever smoked [facility] ([facility]) Smoking 07/02/2020 12:00:00 AM EST Current Smoker completed Curre nt Smoker [facility]1 ([facility]) Smoking 07/02/2020 12:00:00 AM EST Current Smoker completed Curre nt Smoker eCW1 ([facility]) Smoking 07/02/2020 12:00:00 AM EST Current Smoker completed Curre nt Smoker eCW1 ([facility]) Smoking 06/24/2020 12:00:00 AM EST Unknown if ever smoked comp leted Unknown if ever smoked [facility] ([facility]) Smoking 06/16/2020 12:00:00 AM EST Unknown if ever smoked comp leted Unknown if ever smoked [facility] ([facility]) Smoking 06/11/2020 12:00:00 AM EST Unknown if ever smoked comp leted Unknown if ever smoked [facility] ([facility]) Smoking 05/28/2020 12:00:00 AM EST Unknown if ever smoked comp leted Unknown if ever smoked [facility] ([facility]) Smoking 05/26/2020 12:00:00 AM EST Unknown if ever smoked comp leted Unknown if ever smoked [facility] ([facility]) Smoking 05/21/2020 12:00:00 AM EST Unknown if ever smoked comp leted Unknown if ever smoked [facility] ([facility]) Smoking 05/02/2020 12:00:00 AM EST Unknown if ever smoked comp leted Unknown if ever smoked [facility] ([facility]) Smoking 04/10/2020 12:00:00 AM EST Unknown if ever smoked comp leted Unknown if ever smoked [facility] ([facility]) Smoking 03/28/2020 12:00:00 AM EST Unknown if ever smoked comp leted Unknown if ever smoked [facility] ([facility]) Smoking 03/25/2020 12:00:00 AM EST Unknown if ever smoked comp leted Unknown if ever smoked [facility] ([facility]) Smoking 03/04/2020 12:00:00 AM EST Unknown if ever smoked comp leted Unknown if ever smoked [facility] ([facility]) Smoking 02/19/2020 12:00:00 AM EDT Unknown if ever smoked comp leted Unknown if ever smoked [facility] ([facility]) Smoking 02/05/2020 12:00:00 AM EDT Unknown if ever smoked comp leted Unknown if ever smoked [facility] ([facility]) Smoking 02/04/2020 12:00:00 AM EDT Unknown if ever smoked comp leted Unknown if ever smoked [facility] ([facility]) Smoking 01/18/2020 12:00:00 AM EDT Unknown if ever smoked comp leted Unknown if ever smoked [facility] ([facility]) Vital Signs ID Date Data Source UNK Name Value Range Interpretation Code Description Data Source(s) Body height 72.00 in Normal (applies to non-numeric resu lts) 72.00 in [facility] ([facility]) Body weight Measured 155.00 lbs Normal (applies to n on-numeric results) 155.00 lbs [facility] ([facility]) Body mass index (BMI) [Ratio] 21.02 kg/m2 No rmal (applies to non-numeric results) 21.02 kg/m2 [facility] ([facility]) Systolic blood pressure 121 mm[Hg] Normal (applies t o non-numeric results) 121 mm[Hg] [facility] ([facility]) Diastolic blood pressure 82 mm[Hg] Normal (applies to non-numeric results) 82 mm[Hg] Car[facility] ([facility]) Body height --lying 84 min Normal (applies to non-nume ami results) 84 min [facility] ([facility]) Respiratory rate 16 min Normal (applies to non-numeric results) 16 min [facility] ([facility]) Systolic blood pressure 120 mm[Hg] 120 mm[Hg] M [facility] Diastolic blood pressure 79 mm[Hg] 79 mm[Hg] [facility] Heart rate 67 /min 67 /min [facility] Body temperature 36.72 Juanita 36.72 Juanita [facility] Respiratory rate 16 /min 16 /min [facility] Oxygen saturation in Arterial blood by Pulse oximetry 99 % 99 % [facility] Body height 185.4 cm 185.4 cm [facility] Body weight 69.31 kg 69.31 kg [facility] Body mass index (BMI) [Ratio] 20.16 kg/m2 20.16 kg/m2 [facility] Body height 0.00 in Normal (applies to non-numeric resu lts) 0.00 in [facility] ([facility]) Body weight Measured 0.00 lbs Normal (applies to n on-numeric results) 0.00 lbs [facility] ([facility]) Body mass index (BMI) [Ratio] 0.00 kg/m2 No rmal (applies to non-numeric results) 0.00 kg/m2 [facility] ([facility]) Systolic blood pressure 0 mm[Hg] Normal (applies t o non-numeric results) 0 mm[Hg] [facility] ([facility]) Diastolic blood pressure 0 mm[Hg] Normal (applies to non-numeric results) 0 mm[Hg] [facility] ([facility]) Body height 0.00 in Normal (applies to non-numeric resu lts) 0.00 in [facility] ([facility]) Body weight Measured 0.00 lbs Normal (applies to n on-numeric results) 0.00 lbs [facility] ([facility]) Body mass index (BMI) [Ratio] 0.00 kg/m2 No rmal (applies to non-numeric results) 0.00 kg/m2 [facility] ([facility]) Systolic blood pressure 0 mm[Hg] Normal (applies t o non-numeric results) 0 mm[Hg] [facility] ([facility]) Diastolic blood pressure 0 mm[Hg] Normal (applies to non-numeric results) 0 mm[Hg] [facility] ([facility]) Body height 0.00 in Normal (applies to non-numeric resu lts) 0.00 in [facility] ([facility]) Body weight Measured 0.00 lbs Normal (applies to n on-numeric results) 0.00 lbs [facility] ([facility]) Body mass index (BMI) [Ratio] 0.00 kg/m2 No rmal (applies to non-numeric results) 0.00 kg/m2 [facility] ([facility]) Systolic blood pressure 0 mm[Hg] Normal (applies t o non-numeric results) 0 mm[Hg] [facility] ([facility]) Diastolic blood pressure 0 mm[Hg] Normal (applies to non-numeric results) 0 mm[Hg] [facility] ([facility]) Body height 0.00 in Normal (applies to non-numeric resu lts) 0.00 in [facility] ([facility]) Systolic blood pressure 0 mm[Hg] Normal (applies t o non-numeric results) 0 mm[Hg] [facility] ([facility]) Body weight Measured 0.00 lbs Normal (applies to n on-numeric results) 0.00 lbs [facility] ([facility]) Body mass index (BMI) [Ratio] 0.00 kg/m2 No rmal (applies to non-numeric results) 0.00 kg/m2 [facility] ([facility]) Diastolic blood pressure 0 mm[Hg] Normal (applies to non-numeric results) 0 mm[Hg] [facility] ([facility]) Body height 0.00 in Normal (applies to non-numeric resu lts) 0.00 in [facility] ([facility]) Body weight Measured 0.00 lbs Normal (applies to n on-numeric results) 0.00 lbs [facility] ([facility]) Body mass index (BMI) [Ratio] 0.00 kg/m2 No rmal (applies to non-numeric results) 0.00 kg/m2 [facility] ([facility]) Systolic blood pressure 0 mm[Hg] Normal (applies t o non-numeric results) 0 mm[Hg] [facility] ([facility]) Diastolic blood pressure 0 mm[Hg] Normal (applies to non-numeric results) 0 mm[Hg] [facility] ([facility]) ID Date Data Source [id number] 11/20/2020 05:41:51 PM [facility] Name Value Range Interpretation Code Description Data Source(s) TRANSFER FROM [facility] ID Date Data Source [id number] 09/25/2020 04:45:57 AM [facility] Name Value Range Interpretation Code Description Data Source(s) TRANSFER FROM [facility]
[2021-02-22 15:28] VITALS: BP 127/75
[2021-02-22 16:05] LABS: HEMOGLOBIN 13.6 g/dl (13.5-17.5); MEAN CORPUSCULAR HEMOGLOBIN 29.4 pg (27.0-33.0); MEAN CORPUSCULAR HGB CONC 33.2 g/dl (32.0-36.5); MEAN CORPUSCULAR VOLUME 88.7 fl (80.0-96.0); PLATELET COUNT, AUTOMATED 144 10^3/uL (150-450); RED BLOOD COUNT 4.62 10^6/uL (4.30-6.10); WHITE BLOOD COUNT 7.8 10^3/uL (4.0-10.0)
[2021-02-22 16:27] LABS: AMPHETAMINES LEVEL URINE NEGATIVE (NEGATIVE); BARBITURATES URINE NEGATIVE (NEGATIVE); BENZODIAZEPINES URINE NEGATIVE (NEGATIVE); CANNABINOIDS URINE NEGATIVE (NEGATIVE); COCAINE METABOLITE URINE NEGATIVE (NEGATIVE); METHADONE URINE NEGATIVE (NEGATIVE); OPIATES URINE NEGATIVE (NEGATIVE); PHENCYCLIDINE URINE NEGATIVE (NEGATIVE)
[2021-02-22 16:36] LABS: ACETAMINOPHEN LEVEL < 2.0 UG/ML (10.0-30.0); ALBUMIN 3.5 GM/DL (3.2-5.2); ALT/SGPT 17 U/L (12-78); BILIRUBIN,DIRECT < 0.1 MG/DL (0.0-0.2); BILIRUBIN,TOTAL 0.2 MG/DL (0.2-1.0); BLOOD UREA NITROGEN 6 MG/DL (7-18); CALCIUM LEVEL 8.6 MG/DL (8.5-10.1); CARBON DIOXIDE LEVEL 25 MEQ/L (21-32); CHLORIDE LEVEL 104 MEQ/L (98-107); CREATININE FOR GFR 0.84 MG/DL (0.70-1.30); ETHYL ALCOHOL (ETHANOL) 0.203 % (0.000-0.010); GLOMERULAR FILTRATION RATE > 60.0 (>60); GLUCOSE, FASTING 83 MG/DL (70-100); POTASSIUM SERUM 4.2 MEQ/L (3.5-5.1); SALICYLATE LEVEL 5.1 MG/DL (5.0-30.0); SODIUM LEVEL 137 MEQ/L (136-145); THYROID STIMULATING HORMONE 0.085 uIU/ML (0.358-3.740); TOTAL PROTEIN 7.2 GM/DL (6.4-8.2)
[2021-02-22 16:41] LABS: RSV AMPLIFICATION NEGATIVE (NEGATIVE)
--- OUTSIDE RECORDS SUMMARY | 2021-02-22 17:15 | CCD ---
Author Author [facility] Organization [facility] Address Unknown Phone Unavailable Care Team Providers Care Tram Operator Name Role Phone SYSTEM IN, NOT IN [...] Unavailable Unavailable BRANDON, DIDIER MD Unavailable Unavailable [place], K Daniela PMH-METAL MINER Unavailable Unavailable Michelle, K Daniela PMH-METAL MINER Unavailable Unavailable [place], K Daniela PMH-METAL MINER Unavailable Unavailable Michelle, K Daniela PMH-METAL MINER Unavailable Unavailable [place], K Daniela PMH-METAL MINER Unavailable Unavailable [place], K Daniela PMH-METAL MINER Unavailable Unavailable [place], K Daniela PMH-METAL MINER Unavailable Unavailable [place], K Daniela PMH-METAL MINER Unavailable Unavailable Federica OCONNELL MD Unavailable Unavailable [...] is protected by Article 27-F of the [facility] [place] Public Health law. If you continue you may have access to information: Regarding HIV / AIDS; Provided by facilities licensed or operated by the [facility] [place] Office of Mental Health; or Provided by the [facility] [place] Office for People With Developmental Disabilities. If such information is present, then the following [facility] [place] mandated warning applies: This information has been [...] reactions NO KNOWN ALLERGIES NO KNOWN ALLERGIES [facility] Propensity to adverse reactions NO ALLERGIES ON FILE NO ALLERGIES ON FILE [facility] Propensity to adverse reactions NO KNOWN ALLERGIES NO KNOWN ALLERGIES [facility] Encounters Encounter Providers Location Date Indications Data Source(s ) Unknown [address] [facility] [address] 02/20/2021 12:00:00 AM EDT [facility] Extended Individual Psychotherapy - 45 min Attender: Juli Wyman [facility] 02/18/2021 02:00:00 AM EDT - 02/18/2021 02:00:00 AM EDT [facility] ([facility]) Health Monitoring - 15 Min Attender: Oneidaelena Tariq [facility] 02/18/2021 01:30:00 AM EDT - 02/18/2021 01:30:00 AM EDT [facility] ([facility]) Attender: Oneida Tariq 02/18/2021 12:00:00 AM EDT [facility] ([facility]) Attender: Leif Swain 02/18/2021 12:00:00 AM E DT [facility] ([facility]) Unknown [address] [facility] [address] 11/24/2020 12:00:00 AM EDT eCW1 (Psychiatric hospital) Outpatient Referrer: PROVIDER SYSTEM IN 11/20/2020 05:41:0 0 PM EDT [facility] Brief Individual Psychotherapy - 30 min [facility] 04:00:00 AM EDT - 10/31/2020 04:00:00 AM EDT [facility] ([facility]) Attender: Joni Gonzalez 10/31/2020 12:00:00 AM EDT [facility] ([facility]) Outpatient Attender: Daniela Martinez PM-METAL MINER [facility] 10/16/2020 03:30:00 AM EDT - 10/16/2020 03:30:00 AM EDT [facility] ([facility]) Attender: Daniela MASSEY-METAL MINER 10/16/2020 12: 00:00 AM EDT [facility] ([facility]) IP PSYCH Attender: Tre Dumont MDAt tender: DIDIER TAYLOR MDAdmitter: DIDIER TAYLOR MDConsultant: TODD URIOSTEGUI MD 2E-2A 09/25/2020 02:40:00 PM EDT - 09/29/2020 05:38:00 PM EDT [facility] Patient discharged. Outpatient Referrer: VICTORINA OCONNELL MD 09/25/2020 04:4 5:00 AM EDT unspecified psychotic disorder [facility] unspecified psychotic disorder Outpatient Attender: Daniela BARBOSA Antonio [facility]in [facility] 09/09/2020 01:00:00 AM EDT - 09/09/2020 01:00:00 AM EDT [facility] ([facility]) Attender: Daniela BARBOSA 09/09/2020 12: 00:00 AM EDT [facility] ([facility]) Extended Individual Psychotherapy - 45 min Attender: Therese [facility]illo [facility] 09/03/2020 03:15:00 AM EDT - 09/03/2020 03:15:00 AM EDT [facility] ([facility]) Attender: Joni Gonzalez 09/03/2020 12:00:00 AM EDT [facility] ([facility]) Brief Individual Psychotherapy - 30 min Attender: Joni valentin [facility] 08/20/2020 02:30:00 AM EDT - 08/20/2020 02:30:00 AM EDT [facility] ([facility]) Attender: Joni Gonzalez 08/20/2020 12:00:00 AM EDT [facility] ([facility]) Outpatient Attender: Daniela BARBOSA Antonio [facility] 08/07/2020 03:00:00 AM EDT - 08/07/2020 03:00:00 AM EDT [facility] ([facility]) Attender: Daniela BARBOSA 08/07/2020 12: 00:00 AM EDT [facility] ([facility]) Extended Individual Psychotherapy - 45 min Attender: Therese carrillo Lisa [facility] 07/24/2020 03:45:00 AM EDT - 07/24/2020 03:45:00 AM EDT [facility] ([facility]) Attender: Joni Gonzalez 07/24/2020 12:00:00 AM EDT [facility] ([facility]) Extended Individual Psychotherapy - 45 min Attender: Therese carrillo Lisa [facility] 07/16/2020 01:15:00 AM EDT - 07/16/2020 01:15:00 AM EDT [facility] ([facility]) Attender: Joni Gonzalez 07/16/2020 12:00:00 AM EDT [facility] ([facility]) Outpatient Attender: Daniela BARBOSA Antonio [facility] 07/10/2020 03:30:00 AM EDT - 07/10/2020 03:30:00 AM EDT [facility] ([facility]) Attender: Daniela BARBOSA 07/10/2020 12: 00:00 AM EDT [facility] ([facility]) [place] [id number] [facility] [place] [address] 07/02/2020 12:00:00 AM EST eCW1 (Psychiatric hospital) Extended Individual Psychotherapy - 45 min Attender: Therese carrillo Lisa [facility] 06/24/2020 02:30:00 AM EST - 06/24/2020 02:30:00 AM EST [facility] ([facility]) Attender: Joni Gonzalez 06/24/2020 12:00:00 AM EST [facility] ([facility]) Outpatient Attender: Daniela BARBOSA Antonio [facility] 06/16/2020 03:30:00 AM EST - 06/16/2020 03:30:00 AM EST [facility] ([facility]) Attender: Daniela BARBOSA 06/16/2020 12: 00:00 AM EST [facility] ([facility]) TEMP- Non-Physician Phone - 11-20 Mins Attender: Joni oneil [facility] 06/11/2020 03:00:00 AM EST - 06/11/2020 03:00:00 AM EST [facility] ([facility]) Attender: Joni Gonzalez 06/11/2020 12:00:00 AM EST [facility] ([facility]) Unknown [address] [facility] [address] 05/29/2020 12:00:00 AM EST eCW1 (Psychiatric hospital) Outpatient Attender: Daniela MASSEY-METAL MINER Antonio stein [facility] 05/28/2020 10:00:00 AM EST - 05/28/2020 10:00:00 AM EST [facility] ([facility]) Attender: Daniela MASSEYAMAYA 05/28/2020 12: 00:00 AM EST [facility] ([facility]) TEMPMHCTelemed--Crisis Brief Attender: Joni Gonzalez [facility] 05/26/2020 12:30:00 PM EST - 05/26/2020 12:30:00 PM EST [facility] ([facility]) Attender: Joni Gonzalez 05/26/2020 12:00:00 AM EST [facility] ([facility]) Brief Individual Psychotherapy - 30 min Attender: Marta schuster [facility] 05/21/2020 12:30:00 PM EST - 05/21/2020 12:30:00 PM EST [facility] ([facility]) Attender: Marta Chicas 05/21/2020 12:00:00 AM EST [facility] ([facility]) Extended Individual Psychotherapy - 45 min Attender: Therese carrillo [facility] 05/02/2020 10:00:00 AM EST - 05/02/2020 10:00:00 AM EST [facility] ([facility]) Attender: Joni Gonzalez 05/02/2020 12:00:00 AM EST [facility] ([facility]) Outpatient Attender: Daniela Martinez [facility]MET[facility] MINER Antonio stein Intermediate 04/10/2020 02:30:00 AM EST - 04/10/2020 02:30:00 AM EST [facility] ([facility]) Attender: Daniela Martinez [facility] 04/10/2020 12: 00:00 AM EST [facility] ([facility]) Extended Individual Psychotherapy - 45 min Attender: Therese carrillo Lisa [facility] 03/28/2020 08:00:00 AM EST - 03/28/2020 08:00:00 AM EST [facility] ([facility]) Attender: Joni [facility] 03/28/2020 12:00:00 AM EST [facility] ([facility]) Extended Individual Psychotherapy - 45 min Attender: Therese carrillo [facility] 03/25/2020 01:45:00 AM EST - 03/25/2020 01:45:00 AM EST [facility] 12:00:00 AM EST [facility] ([facility]) Outpatient [address] [address]-Mobile Integration Team 03/14/2020 12:00:00 AM EST [facility] Patient admitted. Brief Individual Psychotherapy - 30 min [facility]04[facility]2020 03:15:00 AM EST - 03/04/2020 03:15:00 AM EST [facility] ([facility]) Attender: [facility] 03/04/2020 12:00:00 AM EST [facility] ([facility]) Extended Individual Psychotherapy - 45 min Attender: Therese carrillo [facility] 02/19/2020 01:45:00 AM EDT - 02/19/2020 01:45:00 AM EDT [facility] ([facility]) Attender: [facility] 02/19/2020 12:00:00 AM EDT [facility] ([facility]) Extended Individual Psychotherapy - 45 min Attender: Therese carrillo [facility] 02/05/2020 01:45:00 AM EDT - 02/05/2020 01:45:00 AM EDT [facility] 12:00:00 AM EDT [facility] ([facility]) Outpatient Attender: Daniela Martinez PM-METAL MINER [facility] 02/04/2020 04:00:00 AM EDT - 02/04/2020 04:00:00 AM EDT [facility] ([facility]) Attender: Daniela BARBOSA 02/04/2020 12: 00:00 AM EDT [facility] ([facility]) Extended Individual Psychotherapy - 45 min Attender: Therese carrillo [facility] 01/18/2020 11:15:00 AM EDT - 01/18/2020 11:15:00 AM EDT [facility] ([facility]) Attender: Joni Gonzalez 01/18/2020 12:00:00 AM EDT [facility]) Functional Status Medications Medication Brand Name Start Date Product Form Dose Route Admi nistrative Instructions Pharmacy Instructions Status Indications Reaction Description Data Source(s) Propranolol Hydrochloride 40 MG Oral Tablet propranolol 04/10/2020 12:00:00 AM EST 40 mg by mouth completed <td ID="MedicationRxNorm_3">761364</td><td ID="MedicationMedication_3">propranolol</td><td ID="MedicationRoute_3">by mouth</td><td ID="MedicationRouteConcept_3">G76206</td><td ID="MedicationStartDate_3">04/10/2020</td><td ID="MedicationStopDate_3"></td><td ID="MedicationDosageFrequency_3">twice a day</td><td ID="MedicationDuration_3"></td><td ID="MedicationFormulaStrength_3">40 mg</td><td ID="MedicationDosageForm_3">tablet</td><td ID="MedicationDosageFormCode_3"></td><td ID="MedicationDosageDescription_3"></td><td ID="MedicationMedicationId_3">[id number]</td><td ID="MedicationAccount_3">[id number]</td><td ID="MedicationNpid_3">[id number]</td><td ID="MedicationAuthorFirstName_3">Jose</td><td ID="MedicationAuthorLastName_3">Skinner</td><td ID="MedicationTaxonomyCode_3">[id number]</td><td ID="MedicationTaxonomyDesc_3">Nurse Practitioner</td><td ID="MedicationPhoneNumber_3">[phone]</td> [facility] ([facility]) 24 HR paliperidone 9 MG Extended Release Oral Tablet paliper idone 04/10/2020 12:00:00 AM EST 9 mg by mouth completed <td ID="MedicationRxNorm_4">411731</td><td ID="MedicationMedication_4">paliperidone</td><td ID="MedicationRoute_4">by mouth</td><td ID="MedicationRouteConcept_4">V79546</td><td ID="MedicationStartDate_4">04/10/2020</td><td ID="MedicationStopDate_4">11/26/2020</td><td ID="MedicationDosageFrequency_4">once a day</td><td ID="MedicationDuration_4">30</td><td ID="MedicationFormulaStrength_4">9 mg</td><td ID="MedicationDosageForm_4">tablet extended release 24hr</td><td ID="MedicationDosageFormCode_4"></td><td ID="MedicationDosageDescription_4"></td><td ID="MedicationMedicationId_4">[id number]</td><td ID="MedicationAccount_4">[id number]</td><td ID="MedicationNpid_4">[id number]</td><td ID="MedicationAuthorFirstName_4">Daniela</td><td ID="MedicationAuthorLastName_4">Michelle</td><td ID="MedicationTaxonomyCode_4">[id number]</td><td ID="MedicationTaxonomyDesc_4"> Psychiatric/Mental Health</td><td ID="MedicationPhoneNumber_4">[phone]</td> [facility] ([facility]) quetiapine 100 MG Oral Tablet [Seroquel] Seroquel 01/16/2020 12 :00:00 AM EDT 100 mg by mouth completed <td ID="Me dicationRxNorm_3">378787</td><td ID="MedicationMedication_3">Seroquel</td><td ID="MedicationRoute_3">by mouth</td><td ID="MedicationRouteConcept_3">E47949</td><td ID="MedicationStartDate_3">01/16/2020</td><td ID="MedicationStopDate_3"></td><td ID="MedicationDosageFrequency_3">every night</td><td ID="MedicationDuration_3"></td><td ID="MedicationFormulaStrength_3">100 mg</td><td ID="MedicationDosageForm_3">tablet</td><td ID="MedicationDosageFormCode_3"></td><td ID="MedicationDosageDescription_3"></td><td ID="MedicationMedicationId_3">[id number]</td><td ID="MedicationAccount_3">[id number]</td><td ID="MedicationNpid_3">[id number]</td><td ID="MedicationAuthorFirstName_3">Daniela</td><td ID="MedicationAuthorLastName_3">Michelle</td><td ID="MedicationTaxonomyCode_3">[id number]</td><td ID="MedicationTaxonomyDesc_3">Psychiatric/Mental Health</td><td ID="MedicationPhoneNumber_3">[phone]</td> [facility] ([facility]) 24 HR paliperidone 6 MG Extended Release Oral Tablet paliper idone 01/16/2020 12:00:00 AM EDT 6 mg by mouth completed <td ID="MedicationRxNorm_6">217240</td><td ID="MedicationMedication_6">paliperidone</td><td ID="MedicationRoute_6">by mouth</td><td ID="MedicationRouteConcept_6">V07019</td><td ID="MedicationStartDate_6">01/16/2020</td><td ID="MedicationStopDate_6">04/15/2020</td><td ID="MedicationDosageFrequency_6">once a day</td><td ID="MedicationDuration_6">30</td><td ID="MedicationFormulaStrength_6">6 mg</td><td ID="MedicationDosageForm_6">tablet extended release 24hr</td><td ID="MedicationDosageFormCode_6"></td><td ID="MedicationDosageDescription_6"></td><td ID="MedicationMedicationId_6">[id number]</td><td ID="MedicationAccount_6">[id number]</td><td ID="MedicationNpid_6">[id number]</td><td ID="MedicationAuthorFirstName_6">Daniela</td><td ID="MedicationAuthorLastName_6">[place]</td><td ID="MedicationTaxonomyCode_6">[id number]</td><td ID="MedicationTaxonomyDesc_6"> Psychiatric/Mental Health</td><td ID="MedicationPhoneNumber_6">[phone]</td> [facility] ([facility]) 24 HR paliperidone 6 MG Extended Release Oral Tablet paliper idone 01/16/2020 12:00:00 AM EDT 6 mg by mouth completed <td ID="MedicationRxNorm_5">239950</td><td ID="MedicationMedication_5">paliperidone</td><td ID="MedicationRoute_5">by mouth</td><td ID="MedicationRouteConcept_5">Z53276</td><td ID="MedicationStartDate_5">01/16/2020</td><td ID="MedicationStopDate_5">04/15/2020</td><td ID="MedicationDosageFrequency_5">once a day</td><td ID="MedicationDuration_5">30</td><td ID="MedicationFormulaStrength_5">6 mg</td><td ID="MedicationDosageForm_5">tablet extended release 24hr</td><td ID="MedicationDosageFormCode_5"></td><td ID="MedicationDosageDescription_5"></td><td ID="MedicationMedicationId_5">[id number]</td><td ID="MedicationAccount_5">[id number]</td><td ID="MedicationNpid_5">[id number]</td><td ID="MedicationAuthorFirstName_5">Daniela</td><td ID="MedicationAuthorLastName_5">[place]</td><td ID="MedicationTaxonomyCode_5">[id number]</td><td ID="MedicationTaxonomyDesc_5"> Psychiatric/Mental Health</td><td ID="MedicationPhoneNumber_5">[phone]</td> [facility] ([facility]) Nicotine 2 MG Chewing Gum nicotine (polacrilex) 01/16/2020 12:00:00 AM EDT 2 mg completed <td ID="Me dicationRxNorm_4">666728</td><td ID="MedicationMedication_4">nicotine (polacrilex)</td><td ID="MedicationRoute_4">in mouth</td><td ID="MedicationRouteConcept_4"></td><td ID="MedicationStartDate_4">01/16/2020</td><td ID="MedicationStopDate_4">03/16/2020</td><td ID="MedicationDosageFrequency_4">every four hours</td><td ID="MedicationDuration_4">30</td><td ID="MedicationFormulaStrength_4">2 mg</td><td ID="MedicationDosageForm_4">gum</td><td ID="MedicationDosageFormCode_4"></td><td ID="MedicationDosageDescription_4">as needed</td><td ID="MedicationMedicationId_4">[id number]</td><td ID="MedicationAccount_4">[id number]</td><td ID="MedicationNpid_4">[id number]</td><td ID="MedicationAuthorFirstName_4">Daniela</td><td ID="MedicationAuthorLastName_4">Michelle</td><td ID="MedicationTaxonomyCode_4">[id number]</td><td ID="MedicationTaxonomyDesc_4">Psychiatric/Mental Health</td><td ID="MedicationPhoneNumber_4">[phone]</td> [facility] ([facility]) 24 HR paliperidone 6 MG Extended Release Oral Tablet paliper idone 01/16/2020 12:00:00 AM EDT 6 mg by mouth completed <td ID="MedicationRxNorm_3">062523</td><td ID="MedicationMedication_3">paliperidone</td><td ID="MedicationRoute_3">by mouth</td><td ID="MedicationRouteConcept_3">Q37755</td><td ID="MedicationStartDate_3">01/16/2020</td><td ID="MedicationStopDate_3">04/15/2020</td><td ID="MedicationDosageFrequency_3">once a day</td><td ID="MedicationDuration_3">30</td><td ID="MedicationFormulaStrength_3">6 mg</td><td ID="MedicationDosageForm_3">tablet extended release 24hr</td><td ID="MedicationDosageFormCode_3"></td><td ID="MedicationDosageDescription_3"></td><td ID="MedicationMedicationId_3">[id number]</td><td ID="MedicationAccount_3">[id number]</td><td ID="MedicationNpid_3">[id number]</td><td ID="MedicationAuthorFirstName_3">Daniela</td><td ID="MedicationAuthorLastName_3">[place]</td><td ID="MedicationTaxonomyCode_3">[id number]</td><td ID="MedicationTaxonomyDesc_3"> Psychiatric/Mental Health</td><td ID="MedicationPhoneNumber_3">[phone]</td> [facility] ([facility]) Nicotine 2 MG Chewing Gum nicotine (polacrilex) 01/16/2020 12:00:00 AM EDT 2 mg completed <td ID="Me dicationRxNorm_5">026885</td><td ID="MedicationMedication_5">nicotine (polacrilex)</td><td ID="MedicationRoute_5">in mouth</td><td ID="MedicationRouteConcept_5"></td><td ID="MedicationStartDate_5">01/16/2020</td><td ID="MedicationStopDate_5">03/16/2020</td><td ID="MedicationDosageFrequency_5">every four hours</td><td ID="MedicationDuration_5">30</td><td ID="MedicationFormulaStrength_5">2 mg</td><td ID="MedicationDosageForm_5">gum</td><td ID="MedicationDosageFormCode_5"></td><td ID="MedicationDosageDescription_5">as needed</td><td ID="MedicationMedicationId_5">[id number]</td><td ID="MedicationAccount_5">[id number]</td><td ID="MedicationNpid_5">[id number]</td><td ID="MedicationAuthorFirstName_5">Daniela</td><td ID="MedicationAuthorLastName_5">[place]</td><td ID="MedicationTaxonomyCode_5">[id number]</td><td ID="MedicationTaxonomyDesc_5">Psychiatric/Mental Health</td><td ID="MedicationPhoneNumber_5">[phone]</td> [facility] ([facility]) Propranolol Hydrochloride 40 MG Oral Tablet propranolol 11/21/2019 12:00:00 AM EDT 40 mg by mouth completed <td ID="MedicationRxNorm_4">760308</td><td ID="MedicationMedication_4">propranolol</td><td ID="MedicationRoute_4">by mouth</td><td ID="MedicationRouteConcept_4">H22105</td><td ID="MedicationStartDate_4">11/21/2019</td><td ID="MedicationStopDate_4">03/16/2020</td><td ID="MedicationDosageFrequency_4">twice a day</td><td ID="MedicationDuration_4">30</td><td ID="MedicationFormulaStrength_4">40 mg</td><td ID="MedicationDosageForm_4">tablet</td><td ID="MedicationDosageFormCode_4"></td><td ID="MedicationDosageDescription_4"></td><td ID="MedicationMedicationId_4">[id number]</td><td ID="MedicationAccount_4">[id number]</td><td ID="MedicationNpid_4">[id number]</td><td ID="MedicationAuthorFirstName_4">Daniela</td><td ID="MedicationAuthorLastName_4">Michelle</td><td ID="MedicationTaxonomyCode_4">[id number]</td><td ID="MedicationTaxonomyDesc_4">Psychiatric/Mental Health</td><td ID="MedicationPhoneNumber_4">[phone]</td> [facility] ([facility]) Insurance Providers Payer name Policy type / Coverage type Policy ID Covered constitution party ID Covered constitution party's relationship to toney Policy Toney Plan Information [facility] [id number] Self [id number] [facility] I [id number] Self [id number] [facility] [id number] Self [id number] [facility] I [id number] Self [id number] [facility] MEDICARE [id number] Self [id number] [facility] MEDICARE [id number] MEDICAID [place] [id number] Self [id number] [place]ICAID [place] [id number] [facility] [id number] SP [id number] [facility] COMMUNITY PLAN [facility] [id number] SP [id number] [facility] [id number] SP [id number] MEDICARE COMPLETE [id number] SP [id number] [facility] [id number] SP [id number] [facility] [id number] SP [id number] [facility] P UNAVAILABLE S UNAVAILABLE Medicare O UNAVAILABLE S UNAVAILA BLE Medicaid S UNAVAILABLE S UNAVAILA BLE [facility] [id number] SP [id number] Managed Care - [facility] P UNAVAILABLE S UNAVAILABLE ANSI-Not a Secondary Insurance [id number] ANSI-Not a Secondary Insurance [id number] [facility] [id number] SP [id number] [facility] [id number] SP [id number] ANSI-Not a Secondary Insurance [id number] ANSI-Not a Secondary Insurance [id number] ANSI-Not a Secondary Insurance [id number] [facility] [id number] SP [id number] ANSI-Not a Secondary Insurance [id number] ANSI-Not a Secondary Insurance [id number] TOTAL CARE MEDICAID/GARAY [id number] Diana [id number] TOTAL CARE MEDICAID/[place]AY [id number] Diana [id number] COMMERCIAL GENERIC [id number] Diana E [id number] S [id number] VALUE OPTIONS FOR MVP [id number] S [id number] [facility] [id number] SP [id number] VALUE OPTIONS FOR MVP [id number] S [id number] [facility] PHYSICIAN [id number] S [id number] MEDICAID [id number] SP [id number] [facility](MCA[facility]) O [id number] S [id number] TOTAL CARE MEDICAID [id number] Diana [id number] TOTAL CARE MEDICAID [id number] Diana [id number] COMMERCIAL GENERIC UNAVAILABLE Diana [facility] [id number] SP [id number] [facility] O [id number] S [id number] [facility] [id number] SP [id number] MEDICARE [id number] SP [id number] [place] [id number] SP [id number] [facility] [id number] SP [id number] [place] [id number] SP [id number] [facility] [id number] SP [id number] [facility] COMMUNITY PLAN [facility] [id number] SP [id number] Problems, Conditions, and Diagnoses Code Display Name Description Problem Type Effective Dates Data Source(s) R45.851 Suicidal ideations Suicidal ideations Diagnosis 06/2020 02:40:00 PM EDT [facility] 9.45 9.45 Diagnosis 09/25/2020 02:40:00 PM ED T [facility] EMS EMS Diagnosis 09/25/2020 02:40:00 PM ED T [facility] unspecified psychotic disorder unspecified psychotic d isorder Diagnosis 09/25/2020 04:45:00 AM EDT [facility] F31.9 Bipolar disorder, unspecified Bipolar I disorder, Current or most recent episode manic, Unspecified Diagnosis 03/14/2020 12:00:00 AM EST [facility] ([facility]) F20.0 Paranoid schizophrenia Paranoid schizophrenia Conditio n 02/18/2021 12:00:00 AM EDT [facility] ([facility]) F14.20 Cocaine dependence, uncomplicated Stimul ant Use Disorder. Moderate: Cocaine Condition 10/31/2020 12:00:00 AM EDT [facility] ([facility]) F17.200 Nicotine dependence, unspecified, uncomp licated Tobacco Use Disorder, Moderate Condition 10/31/2020 12:00:00 AM EDT [facility] ([facility]) F10.20 Alcohol dependence, uncomplicated Alcohol Use Disorder , Severe Condition 10/31/2020 12:00:00 AM EDT [facility] ([facility]) Surgeries/Procedures Procedure Description Date Indications Data Source(s) PREVENT MED UPKEEP WORKER&/RISK FACTOR REDJ SPX 15 MIN 02/18/2021 12:00:00 AM EDT - 02/18/2021 12:00:00 AM EDT [facility] ([facility]) PREVENT MED UPKEEP WORKER&/RISK FACTOR REDJ SPX 15 MIN 02/18 12:00:00 AM EDT [facility] ([facility]) Extended Individual Psychotherapy - 45 min 02/18/2021 12:00:00 AM EDT - 02/18/2021 12:00:00 AM EDT [facility] ([facility]) Extended Individual Psychotherapy - 45 min 12:00:00 AM EDT [facility] ([facility]) Brief Individual Psychotherapy - 30 min 10/31/2020 12:00:00 AM EDT - 10/31/2020 12:00:00 AM EDT [facility] ([facility]) Brief Individual Psychotherapy - 30 min 10/31/2020 12: 00:00 AM EDT [facility] ([facility]) OFFICE OUTPATIENT VISIT 15 MINUTES 10/16 12:00:00 AM EDT - 10/16/2020 12:00:00 AM EDT [facility] ([facility]) OFFICE OUTPATIENT VISIT 15 MINUTES 10/16/2020 12:00:00 AM EDT [facility] ([facility]) LIPID PANEL <td>LIPID PANEL</td><td>Rout ine</td><td>09/26/2020 6:58 AM EDT</td><td></td><td> </td> 09/26/2020 06:58:00 AM EDT [facility] COMPREHENSIVE METABOLIC PANEL <td>COMPREHENSIVE METABO LIC PANEL</td><td>Routine</td><td>09/26/2020 6:58 AM EDT</td><td></td><td> </td> 09/26/2020 06:58:00 AM EDT [facility] OFFICE OUTPATIENT VISIT 15 MINUTES 09/09 12:00:00 AM EDT - 09/09/2020 12:00:00 AM EDT [facility] ([facility]) OFFICE OUTPATIENT VISIT 15 MINUTES 09/09/2020 12:00:00 AM EDT [facility] ([facility]) Extended Individual Psychotherapy - 45 min 09/03/2020 12:00:00 AM EDT - 09/03/2020 12:00:00 AM EDT [facility] ([facility]) Extended Individual Psychotherapy - 45 min 12:00:00 AM EDT [facility] ([facility]) Brief Individual Psychotherapy - 30 min 08/20/2020 12:00:00 AM EDT - 08/20/2020 12:00:00 AM EDT [facility] ([facility]) Brief Individual Psychotherapy - 30 min 08/20/2020 12: 00:00 AM EDT [facility] ([facility]) OFFICE OUTPATIENT VISIT 25 MINUTES 08/07 12:00:00 AM EDT - 08/07/2020 12:00:00 AM EDT [facility] ([facility]) OFFICE OUTPATIENT VISIT 25 MINUTES 08/07/2020 12:00:00 AM EDT [facility] ([facility]) Extended Individual Psychotherapy - 45 min 07/24/2020 12:00:00 AM EDT - 07/24/2020 12:00:00 AM EDT [facility] ([facility]) Extended Individual Psychotherapy - 45 min 12:00:00 AM EDT [facility] ([facility]) Extended Individual Psychotherapy - 45 min 07/16/2020 12:00:00 AM EDT - 07/16/2020 12:00:00 AM EDT [facility] ([facility]) Extended Individual Psychotherapy - 45 min 12:00:00 AM EDT [facility] ([facility]) OFFICE OUTPATIENT VISIT 15 MINUTES 07/10 12:00:00 AM EDT - 07/10/2020 12:00:00 AM EDT [facility] ([facility]) Psychotherapy ADD ON - 30 Minutes 07/10/2020 12:00:00 AM EDT [facility] ([facility]) OFFICE OUTPATIENT VISIT 15 MINUTES 07/10/2020 12:00:00 AM EDT [facility] ([facility]) Extended Individual Psychotherapy - 45 min 06/24/2020 12:00:00 AM EST - 06/24/2020 12:00:00 AM EST [facility] ([facility]) Extended Individual Psychotherapy - 45 min 12:00:00 AM EST [facility] ([facility]) MHC Telemed E/M Lvl 3--Est pt 06/16/2020 12:00:00 AM EST - 06/16/2020 12:00:00 AM EST [facility] ([facility]) MHC Telemed E/M Lvl 3--Est pt 06/16/2020 12:00:[address] [facility] ([facility]) NONPHYSICIAN TELEPHONE ASSESSMENT 11-20 MIN 06/11/2020 12:00:00 AM EST - 06/11/2020 12:00:00 AM EST [facility] ([facility]) NONPHYSICIAN TELEPHONE ASSESSMENT 11-20 MIN 06/11/2020 12:00:00 AM EST [facility] ([facility]) OFFICE OUTPATIENT VISIT 15 MINUTES 05/28 12:00:00 AM EST - 05/28/2020 12:00:00 AM EST [facility] ([facility]) OFFICE OUTPATIENT VISIT 15 MINUTES 05/28/2020 12:00:00 AM EST [facility] ([facility]) TEMPMHCTelemed--Crisis Brief 05/26/2020 12:00:00 AM EST - 05/26/2020 12:00:00 AM EST [facility] ([facility]) TEMPMHCTelemed--Crisis Brief 05/26/2020 12:00:00 AM ES T [facility] ([facility]) Brief Individual Psychotherapy - 30 min 05/21/2020 12:00:00 AM EST - 05/21/2020 12:00:00 AM EST [facility] ([facility]) Brief Individual Psychotherapy - 30 min 05/21/2020 12: 00:00 AM EST [facility] ([facility]) Extended Individual Psychotherapy - 45 min 05/02/2020 12:00:00 AM EST - 05/02/2020 12:00:00 AM EST [facility] ([facility]) Extended Individual Psychotherapy - 45 min 12:00:00 AM EST [facility] ([facility]) MHC Telemed E/M Lvl 3--Est pt 04/10/2020 12:00:00 AM EST - 04/10/2020 12:00:00 AM EST [facility] ([facility]) Telemed A/O 30" 04/10/2020 12:00:00 AM EST [facility] ([facility]) MHC Telemed E/M Lvl 3--Est pt 04/10/2020 12:00:[address] [facility] ([facility]) Extended Individual Psychotherapy - 45 min 03/28/2020 12:00:00 AM EST - 03/28/2020 12:00:00 AM EST [facility] ([facility]) Extended Individual Psychotherapy - 45 min 0 12:00:00 AM EST [facility] ([facility]) Extended Individual Psychotherapy - 45 min 03/25/2020 12:00:00 AM EST - 03/25/2020 12:00:00 AM EST [facility] ([facility]) Extended Individual Psychotherapy - 45 min 0 12:00:00 AM EST [facility] ([facility]) Brief Individual Psychotherapy - 30 min 03/04/2020 12:00:00 AM EST - 03/04/2020 12:00:00 AM EST [facility] ([facility]) Brief Individual Psychotherapy - 30 min 03/04/2020 12: 00:00 AM EST [facility] ([facility]) Extended Individual Psychotherapy - 45 min 02/19/2020 12:00:00 AM EDT - 02/19/2020 12:00:00 AM EDT [facility] ([facility]) Extended Individual Psychotherapy - 45 min 0 12:00:00 AM EDT [facility] ([facility]) Extended Individual Psychotherapy - 45 min 02/05/2020 12:00:00 AM EDT - 02/05/2020 12:00:00 AM EDT [facility] ([facility]) Extended Individual Psychotherapy - 45 min 0 12:00:00 AM EDT [facility] ([facility]) MHC Telemed E/M Lvl 3--Est pt 02/04/2020 12:00:00 AM EDT - 02/04/2020 12:00:00 AM EDT [facility] ([facility]) Telemed A/O 30" 02/04/2020 12:00:00 AM EDT [facility] ([facility]) MHC Telemed E/M Lvl 3--Est pt 02/04/2020 12:00:00 AM E DT [facility] ([facility]) Extended Individual Psychotherapy - 45 min 01/18/2020 12:00:00 AM EDT - 01/18/2020 12:00:00 AM EDT [facility] ([facility]) Extended Individual Psychotherapy - 45 min 0 12:00:00 AM EDT [facility] ([facility]) Results ID Date Data Source [id number] 11/21/2020 11:31:00 AM EDT [facility] Name Value Range Interpretation Code Description Data Cinthia rce(s) Supporting Document(s) SARS coronavirus 2 RNA [Presence] in Res piratory specimen by JAVON with probe detection NEGATIVE [facility] This lab was ordered by [facility] a nd reported by [facility]. ID Date Data Source [id number] 10/19/2020 07:05:00 AM EDT [facility] Name Value Range Interpretation Code Description Data Cinthia rce(s) Supporting Document(s) Trich vag by JAVON [facility] TESTS RESULT FLAG UNI TS REF RANGE LAB Trich vag by JAVON Negative (Negative) 01 FLAG LEGEND: L-Low Normal,H-High Normal,LL-Alert Low,HH-Alert High <-Panic Low,>-Panic High,A-Abnormal,AA-Critical Abnormal Performed at:01 RN [facility] [address] [id number] Barbara Thibodeaux MD, ID Date Data Source [id number] 10/02/2020 12:15:32 PM EDT [facility] Name Value Range Interpretation Code Description Data Cinthia rce(s) Supporting Document(s) Nursing Note [facility] TBLMSo4yDlOOXgNu42/DLRnzVJGkl2GmHGlcPDy9PZxxFJKrN7QuZVR1tT9yYZU3IApSEvIdOnPwOmAs lbm [file] 3S0imc6G+w2RbzVh0PMb71XTBSJqKu38hb46V2+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 [file] AgICAgICAgICAgICAgICAgICAgICAgICAgICAgICAgICAgICAgICAgICAgICAgICAgICAgICAgICAgDQ ogICAgICAgICAgICAgICAgICAgICAgICAgICAgICAg ICAgICAgICAgICAgICAgICAgICAgICAgICAgICAgICAgICAgICAgICAgICAgICAgICAgICAgICAgICAg ICAgICAgICAgDQogICAgICAgICAgICAgICAgICAgICAgICAgICAgICAgICAgICAgICAgICAgICAgICAg ICAgICAgICAgICAgICAgICAgICAgICAgICAgICAgIC AgICAgICAgICAgICAgICAgICAgDQogICAgICAgICAgICAgICAgICAgICAgICAgICAgICAgICAgICAgIC AgICAgICAgICAgICAgICAgICAgICAgICAgICAgICAgICAgICAgICAgICAgICAgICAgICAgICAgICAgIC AgDQogICAgICAgICAgICAgICAgICAgICAgICAgICAg ICAgICAgICAgICAgICAgICAgICAgICAgICAgICAgICAgICAgICAgICAgICAgICAgICAgICAgICAgICAg ICAgICAgICAgICAgDQogICAgICAgICAgICAgICAgICAgICAgICAgICAgICAgICAgICAgICAgICAgICAg ICAgICAgICAgICAgICAgICAgICAgICAgICAgICAgIC AgICAgICAgICAgICAgICAgICAgICAgDQogICAgICAgICAgICAgICAgICAgICAgICAgICAgICAgICAgIC AgICAgICAgICAgICAgICAgICAgICAgICAgICAgICAgICAgICAgICAgICAgICAgICAgICAgICAgICAgIC AgICAgDQogICAgICAgICAgICAgICAgICAgICAgICAg ICAgICAgICAgICAgICAgICAgICAgICAgICAgICAgICAgICAgICAgICAgICAgICAgICAgICAgICAgICAg ICAgICAgICAgICAgICAgDQogICAgICAgICAgICAgICAgICAgICAgICAgICAgICAgICAgICAgICAgICAg ICAgICAgICAgICAgICAgICAgICAgICAgICAgICAgIC AgICAgICAgICAgICAgICAgICAgICAgICAgDQogICAgICAgICAgICAgICAgICAgICAgICAgICAgICAgIC AgICAgICAgICAgICAgICAgICAgICAgICAgICAgICAgICAgICAgICAgICAgICAgICAgICAgICAgICAgIC BzEXAtJCUuZTr7O0dvESBeUGCnRM2kZHh9Zi3+DQoN VpDwLQU2zaEtrG3VQI6hr4WbCJxcLZHaz9XlMLr4FH8UONSaUJypRN6DLVxtqg5NBODxGHOrlVQFu0fz GpSpMKZ5ABXgQvbpEB0UTVVoR8lvpsOqUBLkFRMLCP9CXoCaA7AdvC21IXOJJd0+DQplbmRvYmoNCjI0 BOWeu6ZuFMy3RE6JIDJpZjgzf0GnNfJzACEFQIaxGP 6QIUD2MVV5XTFnJm0PWGFtX704nuVaGE0AZg9GImBkIU8gpa1POzAsRJWcUdlVXnn6BTkmHB7SmMAhZN eAfYYohS8lRV5xsAOhStrvZEAhgEHvJLVYs9S4WNCcEPZRGLN0FMInBo1sVPJeMIYyIzB8ZECNXM7HYM TmMMYbmZRxZMMyAUFGUQ3TYHvkQLV0GevimcAlnMSp AWgwOJ7RMFEfsdOnPkMyIKNRQOp+Sl6MWQ6lh0CzZPpcLaFuAU1wpc7CLAmHKxRxS8G1yGQeS6Y8ZYdn Gi4DAPYkOHVaXeCaVAVVJIojAQ7BVD5yycW4VW4LbXCkHHQqNQSjvUYoVNm0G21pcDGrWEvyUE0YPIE+ Simin+Xt5FCJNuXYFrXBXtSfFwKIYHVkXkK6JaE6EDs2 RhP0HiQR34dRhbyyVpGSoeNS6SQD7eVMVuBDVDTN9UuWKopE1lzbGfGCGhTDKYUfMxU59toFHqKLUwST ArNVQnFt0UQRAqK4OgzeOsmMvahxUpASNbKDMVDY8SAVdkbfDdnSSbvKhkIT89kCsnSU9NDi3MGgZcDX 1uyc8KiHJxFe0YXXXpVd0AKZLhMSIiYWCfFSW8QOTo EkMjVXaxRHRtQZLxEBT8JCNiKKWgIO6PZnRsAGCkYIj6LzIpZYMlLJGewc4VBSCfJYTyGJPcZKPvIDRk TDIgZHohNFMfLCDtIXC0FMZbXFGkPF6RYkJfTLSyYFA9KdDqHUEcLHZdav3LZIShJRNuTXCxJGIdAFWb HRTfMIpjVQYiOJZgZZt7WDXsQPRzZF6OPzYkBGFhKV I8JGqrBWZeBZYaql8JVNFfPAXgFut8VwUhNGQpVOLwWXzwLZUbLMRiALYxQPLsRLTaSC6DXmMfMDEvEV DwQsyoOYOjGXNpme4WDTRqRJVrKPAgWZDgXULyDQZyULzxBGPxRYK9UrK0ZAZdBCDoZV8GBkPbPCBxNF O0XDIjRKRaWGRgzm0VAIMeDHSmTpG3UOVyZBCgQVAi SGzpFHAiGRI2FDG4XXTgGZNuYB4JNfAuCTVkCMz2MGOiSJChXYFadd5YBYEzGGZyUOTqPhKgVRTjUXTf PMidUXXxBJP8EwH2XPXrYLOsQI4RHqYzNKYsUMk0OQCvTRBsTNSxhp9MPUVtSDVsADO3PTFcGZKiRBXz MGtfFTJlTNI8XGA3KDBqYLQbVG1OAcKxIKKqNZe4XO QvUYApPONxjj6FMUBvWDNlNBLjJCHhIHEhBCHzWFilUWDsUHIjHmt5IBKiETLlFN7APhAmWKOpJiS2QG MfVIWhPGMfha1GhCMfnVvqos5ABWlJXx8OkOjoOFJ8KWroHi0oaZFcImVpMLURCp8NtoVjIZSjTGBVQZ ixQHGgTPWjYDLtSsHaIYHmXqXeXVD4CYE4GndyQETl NhjtHRl1QqR4BiSqCDO2DNVsSsL8WSQ5EYxpZSgxEJWtCmG0FWX7XyO+FP1qQNj+Cv3Jk2OhhiN1jvKk KWqoZIu2FM1WYGJUS2DZPn== ID Date Data Source [id number] 09/29/2020 04:55:50 PM EDT [facility] Name Value Range Interpretation Code Description Data Cinthia rce(s) Supporting Document(s) Nursing Note [facility] WMCRUa8tIwYNPhEz59/MECjiDTSsx0XcEDbyZTg9LHllEALsO3SjYAQ9nA4qJQY7WPnMHuMlGkCnWiS5 lbm [file] CiAgICAgICAgICAgICAgICAgICAgICAgICAgICAgICAgICAgICAgICAgICAgICAgICAgICAgICAgICAg ICAgICAgICAgICAgICAgICAgICAgICAgICAgICAgIC AgICAgICAgICANCiAgICAgICAgICAgICAgICAgICAgICAgICAgICAgICAgICAgICAgICAgICAgICAgIC AgICAgICAgICAgICAgICAgICAgICAgICAgICAgICAgICAgICAgICAgICAgICAgICAgICANCiAgICAgIC AgICAgICAgICAgICAgICAgICAgICAgICAgICAgICAg ICAgICAgICAgICAgICAgICAgICAgICAgICAgICAgICAgICAgICAgICAgICAgICAgICAgICAgICAgICAg ICANCiAgICAgICAgICAgICAgICAgICAgICAgICAgICAgICAgICAgICAgICAgICAgICAgICAgICAgICAg ICAgICAgICAgICAgICAgICAgICAgICAgICAgICAgIC AgICAgICAgICAgICANCiAgICAgICAgICAgICAgICAgICAgICAgICAgICAgICAgICAgICAgICAgICAgIC AgICAgICAgICAgICAgICAgICAgICAgICAgICAgICAgICAgICAgICAgICAgICAgICAgICAgICANCiAgIC AgICAgICAgICAgICAgICAgICAgICAgICAgICAgICAg ICAgICAgICAgICAgICAgICAgICAgICAgICAgICAgICAgICAgICAgICAgICAgICAgICAgICAgICAgICAg ICAgICANCiAgICAgICAgICAgICAgICAgICAgICAgICAgICAgICAgICAgICAgICAgICAgICAgICAgICAg ICAgICAgICAgICAgICAgICAgICAgICAgICAgICAgIC AgICAgICAgICAgICAgICANCiAgICAgICAgICAgICAgICAgICAgICAgICAgICAgICAgICAgICAgICAgIC AgICAgICAgICAgICAgICAgICAgICAgICAgICAgICAgICAgICAgICAgICAgICAgICAgICAgICAgICANCi AgICAgICAgICAgICAgICAgICAgICAgICAgICAgICAg ICAgICAgICAgICAgICAgICAgICAgICAgICAgICAgICAgICAgICAgICAgICAgICAgICAgICAgICAgICAg ICAgICAgICANCiAgICAgICAgICAgICAgICAgICAgICAgICAgICAgICAgICAgICAgICAgICAgICAgICAg ICAgICAgICAgICAgICAgICAgICAgICAgICAgICAgIC AgICAgICAgICAgICAgICAgICANCjw/sGDeN2uigDUccqD2L4zzZr7VIb5USG7yb9YcCWIiIAltxmJvPo kVGsBhYWOzHdnNUhf7AOtcCS3OqCFlL6PiP9DkMAblAT9SAUJqJUJuvTCrLNGcPONrYbI9XDMcCCsiEW 1HnPUrZFnxOVBiSCOaHH5NJYEyG192uuBsJZ6XFy2R HiJmPA0ndb0XOdDlJKBmEbiVQpr7RQoqTX8PjPZdpQMpKlTjLGWCTbSnW0fgd2XeSyJwUFQQHRmlXJ8G c6ErnDDnQAv+Cn4GXZ9am6IeIQlmLpTsSH0kjr7STHpIYbYhU5QbrOfvWA59kaYalkaxMz90HRMgkSBC HFEvN3EqLKIyI2chkjLrRYLOQLM6OETaSf3rMUCbZO J0DoA3MQSYIA8UPAVnPAIofHZdTTIzYLTDUR5QEJmvRBN6SdraqeBwrBNvQRviXK8FIBKvehIdIbZpUJ BSDQo+Go2ZDQ6gk8XcDZndNMWmOS9eua6NPRdCRqLvR2K0rYNaJ3V8YVdrMn8SSPMqPQTdAcNjRQBDXU qpHS5JPJ9bbvC7RA2FtKOiKKHeYTNsoXHzKGr6Y57v fIEoGOjiRF5ETJH+Simin+Zv2ZJQEaHXKiUOKjOfWqPQFZIgLeX2SaQ8ULw5LdB1BdNC48hKrcdsZgUFfo BK9WQQ8oEUDgPHJFJO9CdTDfnK5hkoFqUzRcWJIORkOvV77zxUQoTPInKWVrHWIcFc6HQNUvA4VdxnRg uTnnkoPmKOGxUXBBRX0IVItqvnEzhHKlgPbmSE02hI neEH5UQk9CPnQbZZ1czt9OlDIvBf6HEXTsAO7IAEAqDYUhHCPzGSY9WHVkJpYpXFqkCRAvGSOgGUM5OI TeVUWeKR3SAqZzUMWeQLz5MOIqTXYbNBIpxp9OOQZmBCGjCTTrNWQpATZfTIKfUGqzRIKgZQOvGTT8IT SnIQOyPX9PIuMiVEWeULMzIDKkBXLzHVUjta3PLUWb YVDvKINnLmWlCGHzYGTfZNauWKUnCHTdZOp3LCDuFMYbHZ7UXpCbMMViHXT7GwPvVYNpQPLyfn6GHWFn LMLuYjo6DXWtQIJuLSCdTPswRKOlIPAvZEQeVOUjEBCrOA5FYiVtHPEoLMUlPFzzTBWoVXLnzh4JMWMf ZHHnOLY5QNBwHZVbFMHgXGhiJMTaEYC9FUI5YSAbVT QmKK6XJkYvFYVoCMB3CiDgIFQdKUBhhr3XHYXaOJToMlJ0QdAfMMKxEBCzVYvdKBBtBQQ8MdDjFJZfWI UvEB7DEqIkEMGpBQk9EUcfPNWvXLVlpj0DQMQfBMVdORWgHUFcCPWsMTVqOByxJELhPSG9YZy8GDLmAR FvXL9SUnYdHQWaKWq3FCybSMViPUOtwf0LUNFmDJFt OLC4YERoDPIkKPRiMTjgQDDrUJKdIfGqSZBlHUDkLJ1IZiVyRXZdKbM4STFzWQHqRUWdvl7SZPLyBMYj LSzqPQAvBEQeAPJtENr6eoFgvGEkAGm4BP7RQ7QaysHpGjODNi3Jb010STL1WAYrXw0ZG9hxXe8eNTIe ZJJEFf9HXRz0S3GcT5SdBFJaHiocMIQzABNyXVWzLu MwZDYyMmNhYjY+RKftVwH0ClI7EJZ8FTH3CAB1B4L6JWE6GrZtFlFxV4MiOx1eFHOCAn6+DQpzdGFydH zeBEPAMtYiYZc0RKonPHGVBt9C ID Date Data Source [id number] 09/29/2020 01:56:36 PM EDT [facility] Name Value Range Interpretation Code Description Data Cinthia rce(s) Supporting Document(s) Progress Notes [facility] YANSPs4tVtTRCeDz36/ZCAykLDVfa3EbZTvwQPe7XPizRILfZ7IeMSD6kR7nQSF9RKxGLfGdKeFzJnZ5 lbm SaFpbDUvMcUCXgXioDVhYlJXitDhzosYQtRH8PrXY3GPEbO07pUPGqKOAlE8GuDPJ7Ijs+Kx7NTUAdkS RhIL7MMhlE7Aoljwd54K7G/kSwbtBKRcw6TuwbniMqU8EtgF4MW/gi1VhYY9dnioBd/37ySReHnMZats 1xnbJFR0PCMRW9rtvA/L/C6NOyCqov+fPwsbKSfRyz k02yn1gXkJv2+mbpxFPGG306Tk9xVm2+9JIEaPtXf7kKZr4KHFF0Rq9MSoiYn2tHmprVBrnFzDe/NHwz Kc980SgLRxmQ3xm2akENgFXjMMhQtxs5+K7sNjl9rnRNYYiZfAFlRVl51SMLhpBUUWt46uAEpOJJmsqO S+2hCz+oECBpegA2lJ4RuEkHoGcso0nP0y6OGVDCNk pGFwXKWZcKqLLnDNnIwFQ2OgeUHprrUJCIcLlswHITLSnmPCLchmtWQWIcj6R3DNQBtFDbktshm55cqw Ko+EvtXfyj2NIrIvYU0qUzEH/iPXBkO4IBTLhQeX4R5nkso8m5GaqYmxoEqks6+n2ORt9ag1eO81kN1 [file] ID Date Data Source [id number] 09/29/2020 01:12:38 PM EDT [facility] Name Value Range Interpretation Code Description Data Cinthia rce(s) Supporting Document(s) Progress Notes [facility] DWFJKa7jLbXFEaTh09/VDOznOIYip8WzFLlbAIe8DAdiUBGwO2TpJLG2zA1wSPF1WUjXDaKdTcMoKcW4 lbm [file] ICAgICAgICAgICAgICAgICAgICAgICAgICAgICAgIC AgICAgICAgICAgICAgICAgICAgICAgICAgICAgICAgICAgICAgICAgICANCiAgICAgICAgICAgICAgIC AgICAgICAgICAgICAgICAgICAgICAgICAgICAgICAgICAgICAgICAgICAgICAgICAgICAgICAgICAgIC AgICAgICAgICAgICAgICAgICAgICAgICANCiAgICAg ICAgICAgICAgICAgICAgICAgICAgICAgICAgICAgICAgICAgICAgICAgICAgICAgICAgICAgICAgICAg ICAgICAgICAgICAgICAgICAgICAgICAgICAgICAgICAgICANCiAgICAgICAgICAgICAgICAgICAgICAg ICAgICAgICAgICAgICAgICAgICAgICAgICAgICAgIC AgICAgICAgICAgICAgICAgICAgICAgICAgICAgICAgICAgICAgICAgICAgICANCiAgICAgICAgICAgIC AgICAgICAgICAgICAgICAgICAgICAgICAgICAgICAgICAgICAgICAgICAgICAgICAgICAgICAgICAgIC AgICAgICAgICAgICAgICAgICAgICAgICAgICANCiAg ICAgICAgICAgICAgICAgICAgICAgICAgICAgICAgICAgICAgICAgICAgICAgICAgICAgICAgICAgICAg ICAgICAgICAgICAgICAgICAgICAgICAgICAgICAgICAgICAgICANCiAgICAgICAgICAgICAgICAgICAg ICAgICAgICAgICAgICAgICAgICAgICAgICAgICAgIC AgICAgICAgICAgICAgICAgICAgICAgICAgICAgICAgICAgICAgICAgICAgICAgICANCiAgICAgICAgIC AgICAgICAgICAgICAgICAgICAgICAgICAgICAgICAgICAgICAgICAgICAgICAgICAgICAgICAgICAgIC AgICAgICAgICAgICAgICAgICAgICAgICAgICAgICAN CiAgICAgICAgICAgICAgICAgICAgICAgICAgICAgICAgICAgICAgICAgICAgICAgICAgICAgICAgICAg ICAgICAgICAgICAgICAgICAgICAgICAgICAgICAgICAgICAgICAgICANCiAgICAgICAgICAgICAgICAg ICAgICAgICAgICAgICAgICAgICAgICAgICAgICAgIC AgICAgICAgICAgICAgICAgICAgICAgICAgICAgICAgICAgICAgICAgICAgICAgICAgICANCjw/eHBhY2 wqxGRgaqM9W2hsRy2DOs5KRP0nw2AcPHRzQQrhtuBzDviCWyLkEITjWryGJsb2GJptBY2HjIXvI9GbA1 KgWGazZE0GZCSuHVFknZNvQVXeBCGwSjM6VHVsEOjb DC5JaMTmVLdfCMVbRWLhEO7HTGWiW083jySrDN5LWq8APmWxSC8ert5ZUzKqCDNtXtzCSjk6LVktNV0O wVKhyEXbGdMuCGGCZpXpJ5ifa5JvPlNbQPLMRXycCL2Hw9XxuRHfLLj+Xt6IXG5eu6HkQVpkDdHcWD7w rt8XLHsSFoKoH7BkzTmrGPFav2sjQBBkNG1htZTbSZ N1NJbhthInLDPvoGJoNJHfAm59YgMbVgHiSPK4XErmAL0wCOqoUW7YAFK3YPlmREByEMLpU1bHDqRcAG wdLMRgaXjiLX1BPnTsG7FxvrBqeFDmLGKqZPUEFo8+HDlhrzPxXarPYqC6RFHnh6UxQSl0SD8PYCToDM buOM0FDWXlfP3rKAupZT5ZSlFcIrGgPFLSAhAgF48k wKNpLCd4P0BsJmCnLYHwFptvCTBuHWdjMnUnLBWkBqHdSLzpZG5+ID4+OAhfVA7HCNrkmfUyCZRePw8O BCAeUSYfRP7dNOItFQQtP4R8wPkzOTDVApNaV3ruksigBA8fHWOdQ192gPupssLnVGH3YDAvFe3QJIYt SGR9ETFajPZuVzUjITRRPZaqAQ1AsDRkZNK1zW0eDU arTCJgAPKsT3kIBlOkaPvqWL98oKhjohYxaEHfNOj+Zq7AKM8lf9IgCLr1dsYnOSppNWZ0QMobYLPaDS SbBROhMLX1YHB3UAAILzMjUYKnPJFiQOmcKWErNJLrbt5LTNQnVMYbHMGfTyMuTAAySKKmYDalBZCfAV KfWPVpKBTaKWGsEE2KDxHzCAWuYMZsUUyiIIRjWCVv wk2UUHJsNVKvKFKuClKoLBKoEUKiOMahWBJlZVKoJzC9JDJdTSJoEO5YIkRoSKSuVJB3GEIrSYDfNEAp ai1QELUpIVVzKpr2OhGnXLQiLJShAJplGFXfHGLtFQgfBWJsDQSdRW8UNtMrVRJpESWeAJPeCHCqXEFc zo9PYVLtMBXqGTUeFwKtBQZkFUXmQGjaLBRiZDM2ZV P5XRVbFGNaBF6BUyFjDQSlENR3IctpSUJkDMXkjf8ZAHQvCOWtJfP2OHJwQDDfIXUtAWnjKYDeTAJ4Oy ryWSLxCLNoGL8GLnAcICKyCYd5SeQsZEYcPPHglr4EHLTtRRBfBvL9XBXsJRPwTZBdVWsfHATsQKL9Ba JfIYQoBFUyGZ8NBoMnNBEoTTy1EWNyLQYkFPYaow5F KQFoVXQaUEa8TEWpMRJaSYRfHJfiGVSvHGT9LPMuMSLvLCLqLK2FWmGuRIAaGuKaPQbkKOVtRDWxct5G XWUpJLAcMBJ0ZFFyEMEzXNClTNorIPDiOZAdYiTbTMIcASHyZE8HPcOrSUSnMpBnAiGnVXNyIKVqqm1R MDAwMDAyMjIzMiAwMDAwMCBuDQowMDAwMDIyMzcyID BrAKTdEY0RUvNzFOppCMVHCyw9MYepC3g0BCAbBH2YU8Ive6HfJigdUVXNFIhxDD7wwdIeUHGgWj1PQ5 uEYqydGVD2E4S6C5AgYTEjW5RpSPAxULV7QKZpUUB7BhBpYW4hNDY3UnocHbUaAaNlGYQ5PJAkLES7Qr owFoCmJPf2JEY9AtKkQY6IHg0KHkM6JUP9rFSxIf8DMtN6PVRCSzJyJI0OXQw= ID Date Data Source [id number] 09/29/2020 11:46:03 AM EDT [facility] Name Value Range Interpretation Code Description Data Cinthia rce(s) Supporting Document(s) Care Plan [facility] ZJDXBy2oZuCLWyWh59/QGPlwZEDbi6EzIVnpOMq9OXnxGYDmC1DnDTQ5nI2pBEF2UQnHQtYzXpRyRfP6 lbm [file] AgICAgICAgICAgICAgICAgICAgICAgICAgICAgICAg ICAgICAgICAgICAgICAgICAgICAgICAgICAgICAgDQogICAgICAgICAgICAgICAgICAgICAgICAgICAg ICAgICAgICAgICAgICAgICAgICAgICAgICAgICAgICAgICAgICAgICAgICAgICAgICAgICAgICAgICAg ICAgICAgICAgICAgDQogICAgICAgICAgICAgICAgIC AgICAgICAgICAgICAgICAgICAgICAgICAgICAgICAgICAgICAgICAgICAgICAgICAgICAgICAgICAgIC AgICAgICAgICAgICAgICAgICAgICAgDQogICAgICAgICAgICAgICAgICAgICAgICAgICAgICAgICAgIC AgICAgICAgICAgICAgICAgICAgICAgICAgICAgICAg ICAgICAgICAgICAgICAgICAgICAgICAgICAgICAgICAgDQogICAgICAgICAgICAgICAgICAgICAgICAg ICAgICAgICAgICAgICAgICAgICAgICAgICAgICAgICAgICAgICAgICAgICAgICAgICAgICAgICAgICAg ICAgICAgICAgICAgICAgDQogICAgICAgICAgICAgIC AgICAgICAgICAgICAgICAgICAgICAgICAgICAgICAgICAgICAgICAgICAgICAgICAgICAgICAgICAgIC AgICAgICAgICAgICAgICAgICAgICAgICAgDQogICAgICAgICAgICAgICAgICAgICAgICAgICAgICAgIC AgICAgICAgICAgICAgICAgICAgICAgICAgICAgICAg ICAgICAgICAgICAgICAgICAgICAgICAgICAgICAgICAgICAgDQogICAgICAgICAgICAgICAgICAgICAg ICAgICAgICAgICAgICAgICAgICAgICAgICAgICAgICAgICAgICAgICAgICAgICAgICAgICAgICAgICAg ICAgICAgICAgICAgICAgICAgDQogICAgICAgICAgIC AgICAgICAgICAgICAgICAgICAgICAgICAgICAgICAgICAgICAgICAgICAgICAgICAgICAgICAgICAgIC AgICAgICAgICAgICAgICAgICAgICAgICAgICAgDQogICAgICAgICAgICAgICAgICAgICAgICAgICAgIC AgICAgICAgICAgICAgICAgICAgICAgICAgICAgICAg RMDrYOYeHHNwUJShYEUmVEYfBRMfLPAgSZDvHNRkWFYdKHUpYVDuGRf3Q6zzIKCdDWSrBD7bSJg8Aa8+ EXiGQbUfHIO4rlEruH9SHL8mr1KhNJzbZBXzs8JkCGx2VA8TBXMqOQfoFE1GJFtjry9FAUZnYSNoiVQX t8ziLwOjVIK9ZGIyYdapGH8BYWPjA7erthCaBCJgHJ DHXU6WLuNmO4AwzT81EUCYZx3+LZutnbReYzfKRkTcWGHoq8YlWFs0OR6LROHrZhnyc8RmMaDdDISMRM nwVZ5HXEA2VSVbQPNnHs1LHSArX858wcUuGP6IOe8RJgArFK5koc0JRaRqDCMuBsuXZhb5NFfbVQ9RwI OjPYsBCDWcFEZmKT4nIfmdANBqoBEwZWWRt2G5BQLx JQZNKKN5GTLdVj1aBCRrLJTfRjE8RJLAKQ4YHTBxZMYvrBYkAHVjVTSMEJ2ZLIgpQRN1JxaczcZhtOAz SAnmLX6CCBZdlhNdZaIoWVMBEMt+Pm4YIV4tr7DcIQnlKXTyZJ3wlm6GQEfQAgHjY7E3gPMwG9V6ZBdr Dw0JEXCyCSVyDrHfAGENMQqsZU0WNT6uktI3FX9QkO EoMVTzPGQnkZBaAHm4Q53xrDKgVNvqGA4MCUF+Simin+Gu0NGXBuAQRhOPZcQwKrKELXEqSwW1AdJ2EKn1 PyB6PgKK74iYpnxtEeNXsyNY7FKO8kIEMyFZWLDZ2AoEKcuH7tphTqZuUeRLGHZbGeI68euWWkJJPtIN EbENLqNx4DVIRyN7XkbqBojJtlvgZbSTSeGXBLJM3V YAbmlcStuQPiuSohWS83mYepNX0FGw9SDaNcWT1uvb1GhQFeYs0DEXNqLY6SZAZbVZTtBKJdNYT7HHRq TfHfNHqtOYPaHLFnRAY6GJNoIOZuMC9PMmMrZBRbEHfkTQxhTULhSFYtvn2JSDRkHHEyQGU3HYZpXDBw WPQmOKlpPONpURHyEDJ4UVOiKAXmBT9AMhNpYTRvFY A3UurbPCGgBUMsmx0BSNMtFCXwNEN1JjUdZQYaESMsOZwvWSNqTWMxEUNzTHPuEGBiYZ4YTcPtASHuLE VnBHUvXUShPCIhkn6UNJKiMYPxLwMnGhDyGCEkHKYxXSpyGJFmZYTjJss1TCIhXLPzAO4ZEnNyYBJoMW J2NTJtOZQjRKHckn8SDIDcLBKpUbn2QXJeVJOhMQLd OXjnJZHoIAO8JMT6KRPlJZMhEM2EEeQlKXRyBPL9AgCyFOShBIYmqq2WTKMsRKHwWsGqVHNbIKZfNNGq MGdgDSYjBTW0GPd0RCGsQIObQO0NOwOnIRBdILcaTjPxEDRnKDRxkh5HJLKhZASrCeb5WsTcJEWtEKHh LHvvJCZuBHZ2MJErXYHpRHMbGA2EJoCpZWYxSKzwRt FuTYFnYUQiyu9EYTRpISNuBSn2ALVsQYFpQDYdWKquEXDdYXWzXZe2YDZgBKSsNF1FRhCyCFRqPjXtTU AsYRCdNJLafd2ZZWIuJKIiIMK0AvUsYIOfLMKvWMd5jfLvzFHfHEd1IT2UU0NqonBrRtIKMe2Ac956TD H6RNChVb3ES5byTp7eNOOmRDEAVt4OKDp9RYDzZVGj K0ZgTZPqSDQcWqwfZGdwWIh4NmppGBUrDAI+RVslILP2UDYeGfMgXrQvCGK1J1VrCFCiJSA2KXS0WJQl Lc7kOYXMPl8+EGzjzOLmqUiqZMUSGrNdOdH6YYjiONMOCa2N ID Date Data Source [id number] 09/29/2020 10:40:04 AM EDT [facility] Name Value Range Interpretation Code Description Data Cinthia rce(s) Supporting Document(s) Discharge Summary [facility] ZZYLXg4nQzDPXdXr64/CWVfxNAJfu9UiDBlnJBh8GCcaLXFyC2NzTRG5tK3lABK9CXlEXfGkLnQvZyK8 lbm [file] MdYjYN4WFi1ZKtX1EGF9wDEiWe7EMuJ1OHFCNyWtEA1SSFr= ID Date Data Source [id number] 09/29/2020 09:37:27 AM EDT [facility] Name Value Range Interpretation Code Description Data Cinthia rce(s) Supporting Document(s) Care Plan [facility] UABHAn0pYnGKJbNp35/WQAqrOKHlw2FwNWlvECc7EGidRJYnH5DrONZ0mM3gAFM6AWvJGbMvSmLiAuI2 lbm [file] AgICAgICAgICAgICAgICAgICAgICAgICAgICAgICAgICAgICAgICAgICAgICAgICAgICAgICAgICAgIC AgICAgICAgICAgICAgICAgDQogICAgICAgICAgICAgICAgICAgICAgICAgICAgICAgICAgICAgICAgIC AgICAgICAgICAgICAgICAgICAgICAgICAgICAgICAg ICAgICAgICAgICAgICAgICAgICAgICAgICAgDQogICAgICAgICAgICAgICAgICAgICAgICAgICAgICAg ICAgICAgICAgICAgICAgICAgICAgICAgICAgICAgICAgICAgICAgICAgICAgICAgICAgICAgICAgICAg ICAgICAgICAgDQogICAgICAgICAgICAgICAgICAgIC AgICAgICAgICAgICAgICAgICAgICAgICAgICAgICAgICAgICAgICAgICAgICAgICAgICAgICAgICAgIC AgICAgICAgICAgICAgICAgICAgDQogICAgICAgICAgICAgICAgICAgICAgICAgICAgICAgICAgICAgIC AgICAgICAgICAgICAgICAgICAgICAgICAgICAgICAg ICAgICAgICAgICAgICAgICAgICAgICAgICAgICAgDQogICAgICAgICAgICAgICAgICAgICAgICAgICAg ICAgICAgICAgICAgICAgICAgICAgICAgICAgICAgICAgICAgICAgICAgICAgICAgICAgICAgICAgICAg ICAgICAgICAgICAgDQogICAgICAgICAgICAgICAgIC AgICAgICAgICAgICAgICAgICAgICAgICAgICAgICAgICAgICAgICAgICAgICAgICAgICAgICAgICAgIC AgICAgICAgICAgICAgICAgICAgICAgDQogICAgICAgICAgICAgICAgICAgICAgICAgICAgICAgICAgIC AgICAgICAgICAgICAgICAgICAgICAgICAgICAgICAg ICAgICAgICAgICAgICAgICAgICAgICAgICAgICAgICAgDQogICAgICAgICAgICAgICAgICAgICAgICAg ICAgICAgICAgICAgICAgICAgICAgICAgICAgICAgICAgICAgICAgICAgICAgICAgICAgICAgICAgICAg ICAgICAgICAgICAgICAgDQogICAgICAgICAgICAgIC AgICAgICAgICAgICAgICAgICAgICAgICAgICAgICAgICAgICAgICAgICAgICAgICAgICAgICAgICAgIC IxYPLjGWNwCEFzCMFbFQNfUJKpKBNvGAQoDNt6Z3zoDUSvSTFbQN1pYYb7Ei1+BNkUUmLaKWB7jxStqX 4XET2ox4EeFHbyGQRqo5ToLUx8GH8YNUUeOApcTV0L GAjeeg0XFGBmHVWenTNTi3mwTvImFTP6WDAtZrkcDN7UVRHyD2jzceAiSVXtYLTIMD2IBrQyF7YxbT43 IDENCj4+HBkssvQnEpjNTpS7ZHHbq6FoRZo1XG6HXJOoQiqka6RaFeZzMATGAAiuSR7ASLJ7EVC9HIPv Yo6VGDGzW428bdUaAC0MOw7FAaMdEB2cwg5LWcAkXX SbPogXBhx2GNnmTG9VcYXvBPeFBUDcTSEtAS8fNtbpKBJizZVoCPNMe4I9BHUvPFLDAEV5LHXjIj5tFI SeONC3BhQ4UMHVSL3FVQZwGSIaoBLaSASjOTXKZT3JUTccJVA9MajxtgWxgHSxSCrlIY1JXJRjcqRrDe UgMCBSDQo+Re0IDP5ro2AfOKluMbBhVY8lzp9VHIfW NiTfD1U0wLKmN0D1JMcqCk8PDSWgCJCfVdGgYQSOVSrqDF0ZGG8ccqT9RN1RyFCqOLQbMXGsbBMbITn3 T65lpQDkMFerFL9YVOI+Simin+Ev4XDOQzQROtKVGySgTcKHBUImLzY7LpB4VDs8EaP3DqNW31aMyqofFq EXrsTZ5KGG3aIWCdSELMPX1XuRAniV4gvnUrRDLfCU MAZbAiG21wgRXzKHFiOVI3NFXgQa5TRNIvU1XoqyUvaCwlgmJtBGNyHOTEHD3WTCdmvgEkkFMziTemQG 13uQdmAG3MNm2KJqOsFS8uyx9IqFAxUl3WQXCsCI2ATMHcVSQwYCZsDPC3ILUzWbMfMWhnPQZgEJPzXJ O5UDLhVCDdHL4CLmBuGFQfCeC9HPXxDPVhVYZygo8W OGPbHYTlGiUoSHEgCVGqXZCnHAlrHWTlWQJvMZV9GYCqQUVaHX8EHjRiAKSsLCB8RSRvFIEcPHJtlx6T KSGrZXDgOwI0BRGiBHTxLEVcZQckSVNyYEYeYOZ0UEWaFEQhYC4LReCpYWEdKOOaJQjkDPUxZKRlua3W TDTwXWEbHuXpWUHtCYGzAVUaGOxvAHHlFHS5XaYjEH TmBUEpOA2OFnRtEDFhUBC8KbQfFZEjXWNwya9DBEWtXGByNFk2OuZeVZJrZFYlMPkwBMZwGOJ4LXbuJA VaFFJzCK9IYaUbMVKwVPl4QKseOWFkAAAqtn2KFOGtTAJnSvHeKqDqOVPzDQBbNLxtIMZgLTJ5WUW7IK EcBGYmYC6AFwYgKPXePWnyGDIzNNHtUOMckr1IJQSu KWAqCIj9CTTeWCEjMPIfFPcwERQgWAU1ZFVeCMRfSQAuPB3IVsMwLBKjASumEcpcFWLvYYBqzr3QYSXs XMChRVJ5OFOgCJBgCGAdGZasBBIlBAUlPRO7VJIoHGYaYG7WFfFdEPQrSxS8JsopYSGyYKGklo8XQCIh BAAnYWP4OYGeEMWdMECvHMnkTXFnGDQxHSs2HZCbNX CqBY5XWnFrZVSpFpY9IwowUCJvGUPaip0YOTYlSDTrBouuLsMuVWIdWNLyYLk9dcVbuGAiSUh6GS9IZ0 QtcbYeNnaBCc9Qq144AFC3HRKvLr2JO8tiMl5kBQVtFHHTYr9YOCr6OSOrUce1J9P6RXKkCFJjQ9WhLS L4WRZfYeb2AYPbBxm+ATwkRCZgRAdkKZY6OEGqUyLs OsA9DzPwVuPiZMOfXuSyXW1wHLVFYi3+UVlpmVUjrZkcXKGUNtGtFGV8NJkzVGSUUa8X ID Date Data Source [id number] 09/28/2020 10:13:22 PM EDT [facility] Name Value Range Interpretation Code Description Data Cinthia rce(s) Supporting Document(s) Nursing Note [facility] MAVQPb1oMxDJCqAv37/UCZlxKTGab7RzCQhoSIe7EDktVWEzG7OiDHY9bF8gSBZ8XAnAEbDgCpBlYjC9 lbm [file] JSStBvQvTCdfFB0kVVXHWp9+HGpnmJTpcXcyHIQIFiBkSvN7GBplYTVZXr7H ID Date Data Source [id number] 09/28/2020 09:19:09 PM EDT [facility] Name Value Range Interpretation Code Description Data Cinthia rce(s) Supporting Document(s) Care Plan [facility] EWSRYh4nIiHCLyCb92/SAByfOKQtx8XgYDmyEVv4FSrpAUCuD5KsYZG0mC3pSIA7KTvBFuEdAvVqPhW1 lbm [file] x9xMxcQ6aQca6Xg7kGhLMCXPPWO3jkI+vázquez+LMP58Cw/0JfDoxfq8sg+evzrv69xnvyqqrjb8cnwhJGXd [file] ICAgICAgICAgICAgICAgICAgICAgICAgICAgICAgICAgICAgICAgICAgICAgICAgICAgICAgICAgICAg ICAgICAgICAgICANCiAgICAgICAgICAgICAgICAgIC AgICAgICAgICAgICAgICAgICAgICAgICAgICAgICAgICAgICAgICAgICAgICAgICAgICAgICAgICAgIC AgICAgICAgICAgICAgICAgICAgICANCiAgICAgICAgICAgICAgICAgICAgICAgICAgICAgICAgICAgIC AgICAgICAgICAgICAgICAgICAgICAgICAgICAgICAg ICAgICAgICAgICAgICAgICAgICAgICAgICAgICAgICANCiAgICAgICAgICAgICAgICAgICAgICAgICAg ICAgICAgICAgICAgICAgICAgICAgICAgICAgICAgICAgICAgICAgICAgICAgICAgICAgICAgICAgICAg ICAgICAgICAgICAgICANCiAgICAgICAgICAgICAgIC AgICAgICAgICAgICAgICAgICAgICAgICAgICAgICAgICAgICAgICAgICAgICAgICAgICAgICAgICAgIC AgICAgICAgICAgICAgICAgICAgICAgICANCiAgICAgICAgICAgICAgICAgICAgICAgICAgICAgICAgIC AgICAgICAgICAgICAgICAgICAgICAgICAgICAgICAg ICAgICAgICAgICAgICAgICAgICAgICAgICAgICAgICAgICANCiAgICAgICAgICAgICAgICAgICAgICAg ICAgICAgICAgICAgICAgICAgICAgICAgICAgICAgICAgICAgICAgICAgICAgICAgICAgICAgICAgICAg ICAgICAgICAgICAgICAgICANCiAgICAgICAgICAgIC AgICAgICAgICAgICAgICAgICAgICAgICAgICAgICAgICAgICAgICAgICAgICAgICAgICAgICAgICAgIC AgICAgICAgICAgICAgICAgICAgICAgICAgICANCiAgICAgICAgICAgICAgICAgICAgICAgICAgICAgIC AgICAgICAgICAgICAgICAgICAgICAgICAgICAgICAg ICAgICAgICAgICAgICAgICAgICAgICAgICAgICAgICAgICAgICANCiAgICAgICAgICAgICAgICAgICAg ICAgICAgICAgICAgICAgICAgICAgICAgICAgICAgICAgICAgICAgICAgICAgICAgICAgICAgICAgICAg ICAgICAgICAgICAgICAgICAgICANCjw/dGSgQ0xtxN YjnyL4S6laYs7JOs8HAJ8an2ZbVFGpSTcrxvHzWhfQSjUrKHVvYahRKdm6RHknSB2AoWPsU7XjS1FxHU ayEV3ALYDqMEAgxXMpWEQkHKGaAsA3SSTzIPslAV5KpEKoBAooSREvKCAjFhEbNSKtKXLcXILmNOSdZP TPISHcIKNnCsKoMKknRU2Dn7GnsOT4YEc+Dh8EEM3k p6QgNKbvAvGmNC5gxl4MXWmJJsRlV5LnlmV0CCK4MCBjSq0BJPElFPRkcMLvJEOeNLIZLwWyP1YeoJ77 IDENCj4+HHnetpJpPtlQSdN6TZEkx3VxSUc0IU2MVIBgAEu7qKCoN2HmYGXWrFSxPXV5OWAuUaghQBGe cMevqO1vCGYBSRQ3RNKbAw7xUTZxMVD0ElZ4AZNTSL 5VTSHbFVEwjUBjSCUeQICUAE8NPOnwUAZ1VfxawqWobSSsVSeyAL4EIUVtvqUiKfHwYOMPSFz+Pg0KZW 7yw7RvCWfsSWHrSM8tww5QIVjBXzIrB9B6xDSjW6U1IMtdHp6GGZJwCFHtHjXpWITCTPiiNE6ODD4dsl K3TN6JtLLhGPMkVXDzqDTwLEf2Q08doLLtKHnpKR6G ICA+Simin+Oj8ILOGwUWEyLVQdNvZtUFFWJfArJ4LuK8MCv7UkC4SyEE70zGgcsjPzRNwhNP7PKP1aGZLx WMDYEY5YdSAvzQ9ctaUaIpIqRLXJPzGdA36wkRZcDLMnRKIhGZYqYx8JFABfK3CdroNgcZxaqrMpUVBn SVXOGS4JHHllgcBuiARxoHzwJU23zZwxAA8SHz5DJi YzWO0nzi2NaAVpYa7LONBxCg4QREMdBOGoXORdFMH6WXVxJpRbNWbyBCIzDUBdFJK3PHWuDIRiAV6ONp CeBANbKnbuNkNsYTSrPYHilm2LYKXzSUCmZPo0AzIrSLPiEYGoKNtpLLGqMUVyZJZ4YRNfIAJaOG1BQo DcUKWyVAOeGazoAEFoDAWkpr4EFTTuLLSwNtM0FOAw WCAsLWAiYEwgUYLbWLZ9TJd5TJOsOVWcQK8RSiJfSZVcZCQ4GGhsKOItFERqep0XNXTuDKYuZyLvTZJb PSKwZZOaEApwHPNxTDZ7RkN1HHGoRWBgCA3OHtZfWSXyHVzaMrTkXWSrCQNygm6YBBEoQOMqQAIcOeCl AEHkQNSeVJgsQFKlHZRsIsKnJKPcTXYgWX3TYpDdOK DnCTA3VkpjORWkUOUzjr0PGEPbDNChODL0MUUlKOBdTJTgIMeqBFQvGBFaOnWkQIYoCVVbXA7PHvAeWT MzOBT8UTgvCNKbCETquy5KECChKJXiAgn0XBNlLQGcWJEwYJflXAJbVHJbJCN1TFPxSRVuAB0RIzQgVS YdXDXiUhokRVXiXKZpjn3DGGEdFOLmCSF3HtChVODf LHGgNVojLOWrLKL6TwjlVRUrWSTlWE5TOqKfMQZvRkCoNMOeCJExXKZdib9CRQAaKTIbDnN8XmGvUREq TTSqBYgeMOYvULZ4Ehz6JRLpQEGbNB9QGdGuARNgHrpoLlHhJFPiFZSvqe6DUKXpGDOpSvSqVGObJCSl RTRnLSyeKJVyNUU6TuZ8MWKfIZGaSK1MHcDnSQAqXp m3UPKsIEWwMQNcwt0GYPXjSPCtBAp4XSLiRYCtYLNnBBytSFLdMMZ4SMW4MPMeRTKlER5PCiLwCVSxHc s6ESoqHMNtTTIdlw9JTDWuGMZdREwmQKMfGDNtRTDbBIviFIXbNGToNNjxWXXbVVZlNX2FVkRhCDNwMt HtYmTqCTLtTMKbko6GiSSkaCuish4NXSuJTn5GbXbk FKB8VKjpPx1dsZTtSVJyLPHZLg0BptXyAYZsMDKCCXncWTIoQDWcUAb5HnG1MXVxE4NeGtOzBUevFUD3 YKAkMSW0AITnHgM5DfU3DAxrYThiWJT0AeJzDDCsBBLgVNt8SXQ3NaE3FQI+IW5hSOb+Iq0Ge1PdwtN7 ikHsIItlXUK9EL3AJNMAS0UVGz== ID Date Data Source [id number] 09/28/2020 07:11:44 PM EDT [facility] Name Value Range Interpretation Code Description Data Cinthia rce(s) Supporting Document(s) Progress Notes [facility] VJPFTy3xRhBCJgOn93/HPDpjZAPbn0GeVZmlJTd1FYmhCABnD2DjFIV8xS8iEAE7MXdOUrHpPfNhZsI0 lbm [file] SbYOY0QyW1XlV7BURdGLUiEYO1BWE6Vb1tUPJLXz2+IPodqUGuhNpiILRMObA4Pnj7EBluXPGBHa4K ID Date Data Source [id number] 09/28/2020 06:08:33 PM EDT [facility] Name Value Range Interpretation Code Description Data Cinthia rce(s) Supporting Document(s) Nursing Note [facility] HLKGJt6rAvPNWqNx57/FSDaeUFRuz3EeVNxrJGl7YKsvEZLsM5GiPXX2gM8hYJU4SFhCTaXcNuBxKiM1 lbm [file] EoF5LtNcOZ1PWs4IFmS3LXD7gQWfLq6DWnR3TSfJLrUpEU3KAUt= ID Date Data Source [id number] 09/28/2020 01:23:04 PM EDT [facility] Name Value Range Interpretation Code Description Data Cinthia rce(s) Supporting Document(s) Treatment Plan [facility] BQTVFs8lVkQBYpZi33/HVVpjJPUsq6HvDHuwCHh5MPhbXFDsB5WhQKZ5cW3vKST6UQpHJrTxCeEvNcO7 lbm [file] xFS1lC+wmG48ayLFsCZNLmGq0JVB25epbbZFgs+fitness and wellness director/yyNuGB3TPK1ui5AiANIgPBfnibFxOesJWtkkVM [file] ID Date Data Source [id number] 09/28/2020 12:57:28 PM EDT [facility] Name Value Range Interpretation Code Description Data Cinthia rce(s) Supporting Document(s) Care Plan [facility] GUQCSl4aYoTHKqSr33/HYFfoWLDib2NdIAukHMb0ELcrVNRhB1NjRLD5bI3hLOV4KIbVRuLyQpQyXfH8 lbm [file] PaKrWMqyFEDSQk7A ID Date Data Source [id number] 09/28/2020 01:24:31 AM EDT [facility] Name Value Range Interpretation Code Description Data Cinthia rce(s) Supporting Document(s) Nursing Note [facility] GLDHJv9iZkBQBpGh59/JQSbzAJLax5CxRPmyNFy4OXedMNLtG4QoXZH8rF9lJDI5TYvRRzOtCfHmKkE9 lbm [file] PyJyRcJg7pZXBJGn7+JAgxnVIerGnrUOYHLdEbADS5DHdwBBOOGb5J ID Date Data Source [id number] 09/27/2020 08:05:40 PM EDT [facility] Name Value Range Interpretation Code Description Data Cinthia rce(s) Supporting Document(s) Care Plan [facility] AVUMSa1aOmQLRoWs72/RPAnvYMVmz9KgTKicMZu4WCcbNATjW2OiYQF8oN2zJWB3ELiZPlZgSwSaAeJ1 lbm [file] Cg== ID Date Data Source [id number] 09/27/2020 07:13:28 PM EDT [facility] Name Value Range Interpretation Code Description Data Cinthia rce(s) Supporting Document(s) Care Plan [facility] BBKECz3oDtMOOmWd85/SJIkhEIEnp7JrFUbhYLm2MAfyCNFwT6SaQAV1mM1kFTB6ZChQUgAgCmEnRhT9 lbm [file] KoH3G3OJF2Axa2NVI+PZ4cBHx+So3Qw2ZyvyX7cpLlYGltMiZ6WJ5DQBNGO2GNVf== ID Date Data Source [id number] 09/27/2020 07:12:03 PM EDT [facility] Name Value Range Interpretation Code Description Data Cinthia rce(s) Supporting Document(s) Care Plan [facility] RFVDQh9oGiBWEuXj16/IYMccIVHhg8PjFRhlOHx4JDlkXEMfP2YzLLH5zA7jKYT4LSfRNiRyKqVsQgR7 lbm [file] AgICAgICAgICAgICAgICAgICAgICAgICAgICAgICAgICAgICAgICAgICAgICAgICAgICAgICAgICAgIC AgDQogICAgICAgICAgICAgICAgICAgICAgICAgICAg ICAgICAgICAgICAgICAgICAgICAgICAgICAgICAgICAgICAgICAgICAgICAgICAgICAgICAgICAgICAg ICAgICAgICAgICAgDQogICAgICAgICAgICAgICAgICAgICAgICAgICAgICAgICAgICAgICAgICAgICAg ICAgICAgICAgICAgICAgICAgICAgICAgICAgICAgIC AgICAgICAgICAgICAgICAgICAgICAgDQogICAgICAgICAgICAgICAgICAgICAgICAgICAgICAgICAgIC AgICAgICAgICAgICAgICAgICAgICAgICAgICAgICAgICAgICAgICAgICAgICAgICAgICAgICAgICAgIC AgICAgDQogICAgICAgICAgICAgICAgICAgICAgICAg ICAgICAgICAgICAgICAgICAgICAgICAgICAgICAgICAgICAgICAgICAgICAgICAgICAgICAgICAgICAg ICAgICAgICAgICAgICAgDQogICAgICAgICAgICAgICAgICAgICAgICAgICAgICAgICAgICAgICAgICAg ICAgICAgICAgICAgICAgICAgICAgICAgICAgICAgIC AgICAgICAgICAgICAgICAgICAgICAgICAgDQogICAgICAgICAgICAgICAgICAgICAgICAgICAgICAgIC AgICAgICAgICAgICAgICAgICAgICAgICAgICAgICAgICAgICAgICAgICAgICAgICAgICAgICAgICAgIC AgICAgICAgDQogICAgICAgICAgICAgICAgICAgICAg ICAgICAgICAgICAgICAgICAgICAgICAgICAgICAgICAgICAgICAgICAgICAgICAgICAgICAgICAgICAg ICAgICAgICAgICAgICAgICAgDQogICAgICAgICAgICAgICAgICAgICAgICAgICAgICAgICAgICAgICAg ICAgICAgICAgICAgICAgICAgICAgICAgICAgICAgIC AgICAgICAgICAgICAgICAgICAgICAgICAgICAgDQogICAgICAgICAgICAgICAgICAgICAgICAgICAgIC AgICAgICAgICAgICAgICAgICAgICAgICAgICAgICAgICAgICAgICAgICAgICAgICAgICAgICAgICAgIC SdBASfYDPjNEDcRMi1L2zfAMCaCWQmWJ2uRKs6Uh5+ YDfQOzVbRAD7yqEogS4VMK6cb9WiMWboCYKho6IdMLz1MD7GSCKbNTbhOP0OFPhecd9AWPKzJZEkjVCW x2wjYtFsNQW2OSCoFyttXK2UUBNpE5varbOnIRDcJVVDGI9APqFmM4SwkZ21EKVKLw6+DQplbmRvYmoN XmX4FCAke6QnQJh6CX3WOMXfUvsqu2CgTwGuKENBSK qeFM4MCHT2ZRJ8BZIdBd6XKDZjC814dpYhMH0AGp1DAfSbVK4oxu5LTpVnJDQbKvkCIkc3HMzmLF3PvA TmMZqFFERiNZHnYF8bUntqXK6njJlaHPxtnuA1DZilURTKLZQ3VMAyLT9lKJVpQTR5FxHiLESNSC6ABY ZxMXOtrXCvMLPtUDTNQM5OVMtnAIL2XlnpeoJnlKDb FIdwYY8RPZZzlwTpZgQnGRHTMOo+Ek2IHI0ez2IyYTloVeNiNH8nts0LNDrMRlMhU4J6qPMoM9Q2NEua Gv9GGQPgOSDjVqGrEFRGOMayRQ6RRA2qveF9ZT0KhRUaKRVgHRYxrRBfVZk7Z03umRGdTZfiWO0YINQ+ Simin+Px5QTGMcMTKgIRKzIpUsBNOVDfBnG6AvD0MSd4 AoF9XjWE73lKrnkaWtODufRN1GWO0bQFJqNYJFPE7OsTBoyR2ijlWnOUFiOUCBUmRxS53ifCZtWCEcFJ G0HDQvUi1EEQGsT1ZsuaMgxBnkieHfVWSwEZCLTV6XGDplsqFryAChuUnfLQ52fEgdBV5NHo8FRzVjWY 1kjt5QwKWtLq2SUQEnUE1OUWMvTMZaYLAlFLZ7GRUe RuImGTuwBSMjQNHrDTL5LLMyLVWoMD0JAnZoPFAgFgSbVRgeRYRvCOJnxx9YRJIqTKVxUEyqLRBeDOWl QVInFYetQALtZINnBMW5EUMvLQJdWP2PCvFgNJYlZWUfLHLeTBMcPCYpty4YGMZxXOHuSTD1MQSmDMDh AIWtTLgnMJPnFYEfYTD0BIMpYNJnTX7IYpHdQEJgTK D0VLleTTMnTLEzws9UXFRpAWXgRaw2SlVbGKMzVGPpKQodGCXjWGRkELAbHWVpUBWpJP6ZQrCgERTyPV I3YAedHZWgIGWent5HESNcYRPmVDG8XUWnEHAuZBMeZOojOLJfTTR5UAKaPELiUXXbEO0QRvPsAYLaVG A9PGElIWFmFYKizy1VHKYrVXOfBbT1NXJkOWMfGPMh TQtcPTTjNIH6Pon4NWWtJEJxOB9BYfWjVRJlHJd2QFUcBHKzOHJnif6ZLYWuOSErHXU4NuCxESJwFEFv WAeoQJCxAAR9KAzbNLFeCIEqSB7BWnYdDCSiKWs2NohnGFVmQRQeeq1VKLTyFCQnWYkxJUDwWISnNHPi TNqzGEOyIWH9XYo0MFWlKBOrQO0TVrLmRYMqRvJbOs gbWYSqDHAhxl0HNZKsYYLgRTK2BIYxGWCxXJNmDOoxQSVgZHBvUUO7ZAKwNDGxWA0GEgOaTJXcTpJpVS bbVIZaAJOnil3HRJUwMDHdRnD8QRAgQRGdMUTxMAa4rgDjaIOvEZn0CF0LH1UpehKyTfoADa7Rg497NF V5HNJtJh4XC6vmQl3kZODoIXKGYa3HBTo2BJNwLTh4 DxT0Frp3FyTcKURhKYAbByAiYRK7WHZwKsu+RRhyYKYeXIGuVMX5UxveSVHbIHV5WMTuHTS4EQC2IQXq IF3mLOATSm6+JGntgXEuhUxzMQSZToYfPrt9RGgdVROFAe8R ID Date Data Source [id number] 09/27/2020 04:35:09 PM EDT [facility] Name Value Range Interpretation Code Description Data Cinthia rce(s) Supporting Document(s) Progress Notes [facility] WVKAWa0fQkTYJhJu70/ZQQwfFNVqm2DaRLsuJLw2PLddPOKmT8CdHUM1yW7pPXK2QCkNOcLvQlOwKxG0 lbm YdFubPBaNwOMDzDkcFOdPqXWodOdfazXLyIF7WbUZ8YOEnR49iZIPbCEJpH3MfTNCyVBC+Uq1FJIYjaH AtSP9KIsvB9TpgaroZWD6S1l/BH37UVIqb76FS2tVQOoWrefSS2vE9E6sbcT56cJDyj5swmd/Y7ezPwz cveKNxMPN69vq9bebMWx79BlfP8LwCIy+7+TNKtBrc qG+/Flctjo3i2/9nZfOB2rtotJpx+9Nz//3AceJFOhA/43ENJ60qBcnKkzpRAWvVEwFGTdg7WnHZlj0b 69hph+YAI580kDGnJiW8viIsDJZahmy3if5w8Vc+uniseh+Y33tNoRt4q4oFFWkiztUAxJJII9mhUtNb WwwXdKjyYRAWo/Tk9dzzoP1uLOj9RFJy1fYqf5BqPZ Ssk4CRJuU6U3pPpEIWjKEx86JoLb8pzq2xu+F3+iJbUebiGgKSevUbqJkCM9QMxY6vO0PMvdMlEA67ls cVXNzipNDfGo7oDYjZoNyeOS/hpMfAPkWJFfp+2Nhqv79eg04qTtNU6cTLwH6La+kbK8ccQTw8sgoXTh wtetlb5XX3t10mowbvpz1Dtzb/asywWQ0zicVnTTDX [file] MjIyMiAwMDAwMCBuDQowMDAwMDIzNjYwIDAwMDAwIG 5ETfIaRPMrMxX2EnKaMGUsNPSkbh0KEWYuVDKmGig7EUHpRPGdRDSuSRg0fzFguAIhSWx5VV5PP9Jpen KuAsKPFz6Ag671XTU1UUHvHt2NG3ddLk8jFQQbCRIPAs8VAVt5LTMkGWx1JfBqH8UoDvK7MGHvUJxnD9 E8Pha7QJJyNYZ+RRiuY6B1PTc3FNF3LnVuLPYzTELl GEX6HOvdFbPyLpJtLQ5gZIMRAw3+LMjsvUQyrAohYTFEAkS7NCG1WWiqSLUHVc4P ID Date Data Source [id number] 09/27/2020 02:02:16 PM EDT [facility] Name Value Range Interpretation Code Description Data Cinthia rce(s) Supporting Document(s) Nursing Note [facility] FYVLYk0rFkGXDxYl22/BGYzqTAFym9HtFCsqMEs9RCvkTKKjI4TuSVO6xD3iJKF9WZsSXxQdNgGsXrB5 lbm [file] YogwA8vnDtXIvsCGU4OA3RQZALW4AUJb== ID Date Data Source [id number] 09/27/2020 11:27:38 AM EDT [facility] Name Value Range Interpretation Code Description Data Cinthia rce(s) Supporting Document(s) Care Plan [facility] HYLCKy5uThZAYpOp03/VBRexPXHux5BmTBuuOCh4LJhvOKOrK2YiZUU3pJ3mWNO4YOtAYdPxIoLgBhT0 lbm [file] Cn7SLKVLX4EMRp== ID Date Data Source [id number] 09/27/2020 10:31:58 AM EDT [facility] Name Value Range Interpretation Code Description Data Cinthia rce(s) Supporting Document(s) Consults [facility] OAIYJx8vHsCXBuTf91/RZOciELMkn9OrMYvzZCr4VOprOEMjY2QzYUH6hY1lLQG0AXnLGcUkNjZwBhT9 lbm [file] AgICAgICAgICAgICAgICAgICAgICAgICAgICAgICAg ICAgICAgICAgICAgICAgICAgICAgICAgICAgICAgICAgICAgICAgICAgICAgICAgICAgICAgICAgICAg DQogICAgICAgICAgICAgICAgICAgICAgICAgICAgICAgICAgICAgICAgICAgICAgICAgICAgICAgICAg ICAgICAgICAgICAgICAgICAgICAgICAgICAgICAgIC AgICAgICAgICAgDQogICAgICAgICAgICAgICAgICAgICAgICAgICAgICAgICAgICAgICAgICAgICAgIC AgICAgICAgICAgICAgICAgICAgICAgICAgICAgICAgICAgICAgICAgICAgICAgICAgICAgDQogICAgIC AgICAgICAgICAgICAgICAgICAgICAgICAgICAgICAg ICAgICAgICAgICAgICAgICAgICAgICAgICAgICAgICAgICAgICAgICAgICAgICAgICAgICAgICAgICAg ICAgDQogICAgICAgICAgICAgICAgICAgICAgICAgICAgICAgICAgICAgICAgICAgICAgICAgICAgICAg ICAgICAgICAgICAgICAgICAgICAgICAgICAgICAgIC AgICAgICAgICAgICAgDQogICAgICAgICAgICAgICAgICAgICAgICAgICAgICAgICAgICAgICAgICAgIC AgICAgICAgICAgICAgICAgICAgICAgICAgICAgICAgICAgICAgICAgICAgICAgICAgICAgICAgDQogIC AgICAgICAgICAgICAgICAgICAgICAgICAgICAgICAg ICAgICAgICAgICAgICAgICAgICAgICAgICAgICAgICAgICAgICAgICAgICAgICAgICAgICAgICAgICAg ICAgICAgDQogICAgICAgICAgICAgICAgICAgICAgICAgICAgICAgICAgICAgICAgICAgICAgICAgICAg ICAgICAgICAgICAgICAgICAgICAgICAgICAgICAgIC AgICAgICAgICAgICAgICAgDQogICAgICAgICAgICAgICAgICAgICAgICAgICAgICAgICAgICAgICAgIC AgICAgICAgICAgICAgICAgICAgICAgICAgICAgICAgICAgICAgICAgICAgICAgICAgICAgICAgICAgDQ ogICAgICAgICAgICAgICAgICAgICAgICAgICAgICAg ICAgICAgICAgICAgICAgICAgICAgICAgICAgICAgICAgICAgICAgICAgICAgICAgICAgICAgICAgICAg JMEsZETuRGWhCKn4J9nqPBLbGSKiIR3jYZh1Dz7+ZMvEHuJqMRS3gzNbqN4QCU0sf4HpRCgsJHEpj5Ua ATk5EO2SXLYfEOciGG9MYDhihn5QWFGoVOHfjCDYq0 wsNpGuEOG6OTCfEprfYN1AATEmR3ufwrOlQYLoPHXCTDikAHWFQPdtDXFMNRGjGDCzErRvVIpaUC7Su1 GfcMP9ITe+Zn9FCE7aa6VkFAypYfZmUH6nch9JXXfMWdHlZ5AtcqK8NWN1BKFyWb9JPTArIFRakHPzRA JeKMHDLaDxM4RhbX31HTHFWh0+DQplbmRvYmoNCjM4 GXPaa0XrLFp3KJ2THVLsJPp7nGBuZ91wq3JhwHMnFywnSbP1TARxKBCKvXNfMrhvMIJJQDXtpRU4UtRv NgAeXLKpFTuqQoCXKOgMGlKqV3Wio6UxPrJ0ITMhKbMiBJmaJVIjBfN0IR71pKtvLT3JCAQuQPJjVS68 CUZ6ZQIqYt0QIe2OZlXuBE2ivv0RRagfLFZjBozYCw f2JUhqJW0CcSKtI3ZgwZLms0fFMzWhN1HCBIU9HGSeQt2VGZHyCiDyVKTuDRxnXN6gFJFzXEYVrSksmz N4ZA2THR4riqXtLC6ZFjXmRw1dTh1VSkRrC1TdT5VnYTZhSVYIYWssFR6JUJocCU6bOQ2Ak7OQvKMnzE 8plf5NGWChICTpNtsdut0CRvnjF3Z7rOvoYRKdDvge MCGVVCzdDW5VYWTiAWL4IGGcVvZxDWATPmOuQ70iNN4JR3Eub89qWjR0DDKpCzQiZMuiOH07hZevteZm xQMibHkwLQ4TNv2+AQyaezPoEczZGrdxZJIFVkMgCJWRXmNdBXKhYUAhYNFiJpV0PvFkEz1IBOUpKMDx MDAxNyAwMDAwMCBuDQowMDAwMDQxMDUzIDAwMDAwIG 3MSiZiDQXtJTL8HlUvXAUcWYOwip3UYAQxWKNmFEF1SiJcQOVnEAEfTGvcUGJhRTRgGHt4TJDeMEJrUU 8DFpAwHTLcBUV1CASvNZXxUOUdjg7POQHfYZCuLUQeQRBqNPOsBDDeIDqmXXBhHSD8NWK9BPDqFDMtUI 3NNvIjACVfSCi8XbkgSTTuWWIsef8URBBwTCOwYmpk SWRaFPZrSJWxMMriAVJoNZR1YMBeZJSkRGZbXD6WSoBfFUIiGMLsNBCgSXMhMUXyyx1OMUEaPLSbQVx3 WHKpNCAbZOCvABtxCBXsPVOkNRa0DIUfSYGuKX7EKnGyQWFpHRUnOsEpFXGuRBAokl7LRETmJSVwJrTu TMCpBJSlSNEyOPmqWAWfPLHpSBVmIAYrVQFlDB9FVx MaCUZwRNZ7HWYnDSUlNLFbpe1TKUKfRDOpEhI1IFFnWYPjIRNhTSkoWGGcQYJnCBfmPGMxUFPtCV2NEf FqZKZyHRKxGcQwYEGyENStqj9GUIQrXEBfDYTiRIAlZWQoGNHuEDjvBXErUFX9XsIaYMSbIDUhUP5GOd QtDTAcMLS2TCZiQFZvBENxth3AKUMpPFUxZeD6GfEo RLTfGMKkIJowHKHiVMZ8LLP5BHKzFDWvJT4TWxJbXOVnJIV7REjqTSThIGYcde9VUHPnHIQsEsq3ZAKj KOZnSYPgELqnSMLiNPJ8HWhvTLOkPZAuTF4QXqZtTVSyMna0IVtoRHMqXBPdwa3ZAEIoJNEuPTZ2NWYw QWSoCAGtEXacVTYySZT4KoE4ZWFzPKMfQL3SNmXtCJ MqSJP6FMmbDPLtMOAjbf0XIVTaGJA3ZHq7ZIXoGKOePMVbQGlrAXGvIYGoUWYqQGWbWXDlTZ2WQcVwNE LnCUE5ENQfMZNbWXPiii8QZYRqJKL8Vrp5RqRqULGgHHGzFTbcBVUrJHHuDDT6PQOkCYYhUB4HOaAmXA LxCLGsStopEMCfKXBgxs3CkPCfrTftmj5BTWyAOk0L fUayNWKyVDeuYn5gjWRsNPXeAKQDQv5SvhIwBPJjUVKZMAzbTWDxLUO1RQCvJjI6IzJpBqkjIDAePQIc KVXuLTS1BMc7CMSbOtC5BWS7BdW9KtR6UCN3WqW2B1S3MNJ6LQP0ZJMlJWMcE6L+PO4jHRy+Wj7Pm2Rx zbC7kmHdKCp0OtCwPW1HMGISX0HZWc== ID Date Data Source [id number] 09/27/2020 06:25:12 AM EDT [facility] Name Value Range Interpretation Code Description Data Cinthia rce(s) Supporting Document(s) Nursing Note [facility] IAYSLl3nPlBUUfWw26/MQTprVPUzp5UbNOyfOAu5SFudERMnU4JdGZA0iX9kLPX4SFaOPzYbFmFkDsC2 lbm [file] contracts attorney/VbYra/36FoFV2ovgy5eqEFOiVXP4JUrDfu8i1d [file] AgICAgICAgICAgICAgICAgICAgICAgICAgICAgICAgICAgICAgICAgICAgICAgICAgDQogICAgICAgIC AgICAgICAgICAgICAgICAgICAgICAgICAgICAgICAg ICAgICAgICAgICAgICAgICAgICAgICAgICAgICAgICAgICAgICAgICAgICAgICAgICAgICAgICAgICAg DQogICAgICAgICAgICAgICAgICAgICAgICAgICAgICAgICAgICAgICAgICAgICAgICAgICAgICAgICAg ICAgICAgICAgICAgICAgICAgICAgICAgICAgICAgIC AgICAgICAgICAgDQogICAgICAgICAgICAgICAgICAgICAgICAgICAgICAgICAgICAgICAgICAgICAgIC AgICAgICAgICAgICAgICAgICAgICAgICAgICAgICAgICAgICAgICAgICAgICAgICAgICAgDQogICAgIC AgICAgICAgICAgICAgICAgICAgICAgICAgICAgICAg ICAgICAgICAgICAgICAgICAgICAgICAgICAgICAgICAgICAgICAgICAgICAgICAgICAgICAgICAgICAg ICAgDQogICAgICAgICAgICAgICAgICAgICAgICAgICAgICAgICAgICAgICAgICAgICAgICAgICAgICAg ICAgICAgICAgICAgICAgICAgICAgICAgICAgICAgIC AgICAgICAgICAgICAgDQogICAgICAgICAgICAgICAgICAgICAgICAgICAgICAgICAgICAgICAgICAgIC AgICAgICAgICAgICAgICAgICAgICAgICAgICAgICAgICAgICAgICAgICAgICAgICAgICAgICAgDQogIC AgICAgICAgICAgICAgICAgICAgICAgICAgICAgICAg ICAgICAgICAgICAgICAgICAgICAgICAgICAgICAgICAgICAgICAgICAgICAgICAgICAgICAgICAgICAg ICAgICAgDQogICAgICAgICAgICAgICAgICAgICAgICAgICAgICAgICAgICAgICAgICAgICAgICAgICAg ICAgICAgICAgICAgICAgICAgICAgICAgICAgICAgIC AgICAgICAgICAgICAgICAgDQogICAgICAgICAgICAgICAgICAgICAgICAgICAgICAgICAgICAgICAgIC AgICAgICAgICAgICAgICAgICAgICAgICAgICAgICAgICAgICAgICAgICAgICAgICAgICAgICAgICAgDQ u5S6zqVIKbOBYaHP0qVEv8Mg5+KAkNZdEhOTD5fgCe fR9ETW0zg5MqJIfrSGRhx8HpORg9GN6BGSHvTFynUL5XORximf5AKSQyCEYoaAEHt6rrHlYcHDE8QYEm HwunEK6HCIZgJ6lrbgCfQGScHORHWW9PIcRvW6DikH87VWZJWn1+SUzmcmTgXqpCJqQjLKJlq2IiIOd6 FP8HWSSsFyvwc8TvUfVpMQFBYTzrAX2UEYG0FEOsIJ OuCx3EEKZuH525waTkKH0QWr7CGuYkRN5mvk1CYkJdPAItBfxVUsu4SNpbFI5ZsDPfQHgUlKXhkT5hGJ 2tpPWuTkicKG26hPTpL3aphB7iozW4kCcwJJYGOIZ0IYUwDV6zERGoZXQ5WsY9USRKQH7ZHSXdZHGksI FaQOAbZJIJUD9IHAsuKDU2FxkkrfLaiTRaTYflMH0B YXJlbnQgMjIgMCBSDQo+Nx3YVI5es6HrLJxkFTSiSB3zfp4TDIzXWjPqU4E8pZIvT7C4LJjjLo4AQYUx GZYrUmZsRXZEDAacQW8JPO6vzxW6ZU7DjNOaCHCvPDCesQZsVZx0R38nbLPjSKndRP1KJPE+Simin+Pg0K JGDcZNWeOINfFaOnGYWMVxShW6NnY4TGb5QbE8EsQW 41cNxmfdPaRFytMK9MHC3sWNGqDDBHFT5FsSVhrK9zxvImAkUkOJMSLrEhR40xsBClVBTjYQAnWVKnZg 0ZVREjX5TxtiZyiRkndlPqYYPvWPAYTJ9MITylajCyoOBevWxhHS90aOgnPE6LZq3AFcEaEA4voh5KlR YcCl3XATYoSY6NPGCzSSRtPGWuIOH3YEMnYcOdDIog ZCFwMEQyWQX8BYDqRQSkCU1BPzKaFBIgHVi1TquxDKGuUWXnjj1SSNHbQMRjRLQzTsOwQPYsLVOjBCkr BWLgPNUxHUO3TYAhXWYdJI9FMzArTCQnBSRjAEGpEQZzVPGttu1TOWSeRUPqMXAySTVpVREbGLVbULqd YBVlZZEkLugtQYBjJZMnCO1NLwCiXSFgQFF1KaZtRB TcINBjrc0MYODaRYWhEbG7MOYxBSUhFMSxETpeFYReFHCmGzS6XPXzHWKkWO7OIyEaBEQhYDC6LHRgZG GkIEEycc7DUYWlBEJsAnh4LmObFHAdMSCnKLzxIBStSBG0NdX6BSZgSNDbAG8FAnAySHCcGAJ9CfXxVY YxVLIrsa2CBWGkSLJoCrx1TXBvUJOrBCXiCEojNWZt IAO7JVNsEGQqQWYtVW7XSzCzQDTcIIwaBKJqQHAgNIJdkf4RDCNuASHfMIM6WCReXZMjNVIuMUchDSRa LWI9VyzqXKFhEVIgVI5RJrWpVYLnQNr1BIXgDRHrMLDoin0IJYToTKDdQKq0KuRkPJEcUOWrYKnfRAOf ILZgZFCyTHJsKQIyVP4VSjDcMIFcQjD3OAYoJGJxHI Ukna3JLCLsXOUaYJVpLQMuTAFuXPYhBCm1kwGfeGNlHKh6UB4PO2DbbnDrJsSPOa5Qs118UWD9DGBeGv 7SK1naUz1iBDFcKKOSSu5SYKj7LrV6IDReMYP4RmU8JKB4NcLzWzYyUcA9FPToYiQfQbW+IDwyNDVkNj QgOHYyRMW0VBqwHHV8YTG3VOteNhWhJYYxPe9dYK ANCj4+JYuvgVWfkGbcPNYFOcXpHCl4AGqyMKCRAl6R ID Date Data Source [id number] 09/27/2020 12:09:39 AM EDT [facility] Name Value Range Interpretation Code Description Data Cinthia rce(s) Supporting Document(s) Nursing Note [facility] JCWTHy4uKjKLWjLo96/WOQdjYTZuy9VeNJbiDDy7KHrbRIFnP9UqBDC7dO6tUZE7XJoFLvDxQcLxImH6 lbm [file] 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 tender+2AjEZckDQYzZ3zXIc3+33/7FLGpgBBBel5N359 [file] T0YNCg== ID Date Data Source [id number] 09/26/2020 10:08:25 PM EDT [facility] Name Value Range Interpretation Code Description Data Cinthia rce(s) Supporting Document(s) Care Plan [facility] VVDCQq6bPyCOPlLu79/WFWdgECQcs0SbIHxfMXm6AQxdLCZtA0ZeSPR3jT1oDIP8VCgUMkRcLpFpSgW3 lbm [file] ICAgICAgICAgICAgICAgICAgICAgICAgICAgICAgICAgICAgICAgICAgICAgICAgICAgICAgICAgICAg ICAgICAgDQogICAgICAgICAgICAgICAgICAgICAgIC AgICAgICAgICAgICAgICAgICAgICAgICAgICAgICAgICAgICAgICAgICAgICAgICAgICAgICAgICAgIC AgICAgICAgICAgICAgICAgDQogICAgICAgICAgICAgICAgICAgICAgICAgICAgICAgICAgICAgICAgIC AgICAgICAgICAgICAgICAgICAgICAgICAgICAgICAg ICAgICAgICAgICAgICAgICAgICAgICAgICAgDQogICAgICAgICAgICAgICAgICAgICAgICAgICAgICAg ICAgICAgICAgICAgICAgICAgICAgICAgICAgICAgICAgICAgICAgICAgICAgICAgICAgICAgICAgICAg ICAgICAgICAgDQogICAgICAgICAgICAgICAgICAgIC AgICAgICAgICAgICAgICAgICAgICAgICAgICAgICAgICAgICAgICAgICAgICAgICAgICAgICAgICAgIC AgICAgICAgICAgICAgICAgICAgDQogICAgICAgICAgICAgICAgICAgICAgICAgICAgICAgICAgICAgIC AgICAgICAgICAgICAgICAgICAgICAgICAgICAgICAg ICAgICAgICAgICAgICAgICAgICAgICAgICAgICAgDQogICAgICAgICAgICAgICAgICAgICAgICAgICAg ICAgICAgICAgICAgICAgICAgICAgICAgICAgICAgICAgICAgICAgICAgICAgICAgICAgICAgICAgICAg ICAgICAgICAgICAgDQogICAgICAgICAgICAgICAgIC AgICAgICAgICAgICAgICAgICAgICAgICAgICAgICAgICAgICAgICAgICAgICAgICAgICAgICAgICAgIC AgICAgICAgICAgICAgICAgICAgICAgDQogICAgICAgICAgICAgICAgICAgICAgICAgICAgICAgICAgIC AgICAgICAgICAgICAgICAgICAgICAgICAgICAgICAg ICAgICAgICAgICAgICAgICAgICAgICAgICAgICAgICAgDQogICAgICAgICAgICAgICAgICAgICAgICAg ICAgICAgICAgICAgICAgICAgICAgICAgICAgICAgICAgICAgICAgICAgICAgICAgICAgICAgICAgICAg OXRwWPGwIMCbWBDdJYTfBWu1W2yuEJTzHFZdIE8vXZ d3Jz8+EZzCSpIbDYL5eaXjoU7BKI1vy5SzIQyzVOIat4RyGIu4IQ3ZOPVpEPdwFY7BLAzjmw5DCJPcQY AxjYWIf0kyKlAhGLP9GWCbFqdaSL2YXEDvU5dtcvThHZDyUCVBSTcjLMABGHqdMECBUATkAMKmDsJtLm XkMVBiCL4IXOLdP456ecHgCO5CEn7RFtQrTV5nem4T PiQsBEIsPvbVEnx9ZUotHN5TiFWzhWEhVQXbTTAPNoGsE7hks4KyJaQlUMDYWWmiFY5Gh2BlnPVsRKe+ Fa4GBI9vg5QpBDlaGULxDG6qah8FAFtPGsTnD4NtiRvbXUHkzpYtKKbaiwXpgWLQKJIwvHgaHNL7dCcp SAIWXYB3ANQzYR4sUKXvFUW6FmY7SDQAJT5GJEGxQJ ExxMAfQIGbOQQUNQ9TZBxhJIJ3NonhftWtnAIbQXfkQL9PBIAmduAkJgDrRSJHJYh+Wq6MMN8pd0KpFC qcSGDoIY3hua5ZOIwQPpDgV4N0qRCeX4E8YNywOk9ECUUuBFMgBcKjLITLENpaGO5FWS3qjaU8DV0NeC PoIJIiIHNwtPHjKHv3Z68npTLrLUmlMP2AUJR+Simin+ Dh8STBSrTOWuZENnKiGzPCQHXeBrE6FmG2WYj1OeC9FkYZ85eFjlnkKfAZxzCI5KZB0aETYvPVTLUC8C pFZecX1jkqXcOoHoRKDUZdVfB37owVWqMDZjTUSsWKLlDi3VMNFcD5HnohRxjDuptcJqVNHqTDYYIE6V PUbsevWxjKFpfXqlKL35eAycXV9KFl1ACvAqNQ9iqm 1WyLBuKu3IPUMiPm1DTKCwUJWbVWVgOLN7WIEuHxWwMLycFAAxBCFgGUV7MJBoFEGlND9NGwQrOAZoGm nsTuPmBXKrWCFgmn6JUBZrPUKcZCF2HPJjJFFlVEHiWYefJSKuUPYhNMQ2AEVdPNQxAS9SMcAbOWWeJX GwVcVeLANzTGBnkj4LWENwCKYoEuI9KXRbWHIdEWJt PNumZKPhISC2XFR2QOIhZZNzXI8DXzJxRRCnYWA9JbUtMTQdNNYbcg5IDXTdIKWiZvk1LWBpFHDcVTWd TGuyQQRwHWF7HKm8EFCtCAUbMW4HFuUqRCFnWKoaXUfnUNVvHQDdji2NVGBzGZPjPJHuNmEsRLTwFUJu ODleFPLlRCTjOHJnGBOxEWLkET5FAcDyPDYqMGZ9Gr cxTVPdSFRodb3SQIFsDBUbVHD5KwFpPRKqKUNmHCkxKZVzWGJzKWg7UHKpKUUtLD4AKqZaOAMrLPDbBY RfQMVeBGDliv2LAEXoOTFiXtF0FuVpBZIvNIFgMEyxNUUdRUTwUzHmXLGpQLJkYM9CLgHuZIWgLDR4Tg QeUBBfMUSmao9QEWEuYGXxGIk0SMTxORXzPLHcVGft WZEwZTQ2RYrvVIJzMGArBP8SDuLpLWGjXmReSUIeIKQyHSTlgd9DETUiNVNwQvD6ZVAxMZCfQMCvXQme DVYsGVU3Npr2ZSKnCRYeCN3UTzCuBXRrRlo6NuytTPKrSUJxje4LXTGrPNVeYghwLhWhWCZdVJNpTKob VAQuCCV9MCDjXZInWCYuQZ6TRoRqIZBdRgt4WLSeLL WoUQZvhf5XFIWuJRDxAWRfSEGpLGCiHBItSAyuHGMuRCT6JoIcTDDeNHOcHM7DRvBdQHPaXqr6JKCzKZ LdAZBqfx7PDZKzMPBbFCGdTDJoODUyMJGaWDafFDOjHEGxBvhpBVEeDEHuXH1MTqXkJMFdAzD1UtNgMI BwGIEznx3YmTUmmXbqtk5CWDaCNm5VkTzcVPY8MVmc Ms6baYWlWMLmQMRVKj0FjnMsQEEjCDKLKDdlCWJdBHSnTfY5F2U6NERpHIC4DGQ8TrxbWbBoIKEjPXjs HBC2LlK4PnQeHGJiVediHGLnGVX6NyH8DKYgEhPtBPS1ElCuLXp+FT8oKUs+Sn9Ac0AkbwO4qmTdEBra GSD4IO8NPFUFD5MDRi== ID Date Data Source [id number] 09/26/2020 05:37:05 PM EDT [facility] Name Value Range Interpretation Code Description Data Cinthia rce(s) Supporting Document(s) Nursing Note [facility] XTUSNk7gTvBBCyMp13/OMAbvXRKbk9YtVDzhERy4CYorWRNqF9BvQGS9mJ8xRJG0BXfTVoOfUvEyTmV2 lbm [file] ICAgICAgICAgICAgICAgICAgICAgICAgICAgICAgICAgICAgICAgICAgICAgICAgICAgICAgICAgICAg ICAgICAgICAgICAgICAgICAgICAgICAgICAgICAgDQ ogICAgICAgICAgICAgICAgICAgICAgICAgICAgICAgICAgICAgICAgICAgICAgICAgICAgICAgICAgIC AgICAgICAgICAgICAgICAgICAgICAgICAgICAgICAgICAgICAgICAgDQogICAgICAgICAgICAgICAgIC AgICAgICAgICAgICAgICAgICAgICAgICAgICAgICAg ICAgICAgICAgICAgICAgICAgICAgICAgICAgICAgICAgICAgICAgICAgICAgICAgICAgDQogICAgICAg ICAgICAgICAgICAgICAgICAgICAgICAgICAgICAgICAgICAgICAgICAgICAgICAgICAgICAgICAgICAg ICAgICAgICAgICAgICAgICAgICAgICAgICAgICAgIC AgDQogICAgICAgICAgICAgICAgICAgICAgICAgICAgICAgICAgICAgICAgICAgICAgICAgICAgICAgIC AgICAgICAgICAgICAgICAgICAgICAgICAgICAgICAgICAgICAgICAgICAgDQogICAgICAgICAgICAgIC AgICAgICAgICAgICAgICAgICAgICAgICAgICAgICAg ICAgICAgICAgICAgICAgICAgICAgICAgICAgICAgICAgICAgICAgICAgICAgICAgICAgICAgDQogICAg ICAgICAgICAgICAgICAgICAgICAgICAgICAgICAgICAgICAgICAgICAgICAgICAgICAgICAgICAgICAg ICAgICAgICAgICAgICAgICAgICAgICAgICAgICAgIC AgICAgDQogICAgICAgICAgICAgICAgICAgICAgICAgICAgICAgICAgICAgICAgICAgICAgICAgICAgIC AgICAgICAgICAgICAgICAgICAgICAgICAgICAgICAgICAgICAgICAgICAgICAgDQogICAgICAgICAgIC AgICAgICAgICAgICAgICAgICAgICAgICAgICAgICAg ICAgICAgICAgICAgICAgICAgICAgICAgICAgICAgICAgICAgICAgICAgICAgICAgICAgICAgICAgDQog ICAgICAgICAgICAgICAgICAgICAgICAgICAgICAgICAgICAgICAgICAgICAgICAgICAgICAgICAgICAg ICAgICAgICAgICAgICAgICAgICAgICAgICAgICAgIC LqMILwELCgIYv3I1hiVQXjANBdKA6tRPk0Wm3+CMmXAaIjKZG7grUxmZ0NGS4sr4AvLZtkXPEyi0ZvJL s2CP1JTFBaVKypNK7FIDpddq8QDNPqJNYykCLQi6umDeSkKIF2IXKxIutpPZ9HZXBkK9qamrHwRORxBJ QWCA2QKzDbZ5FttV91KUSPNc5+DQplbmRvYmoNCjI0 GLRnn3VpWNu1ZP4LDRQbHvaig6VlQkBwBWSVWVysQF1STBE3SSY1SJNbOh3VWXNpO659cgGqHT9LHc9J ToYyXF0loq7KVaMbMZOuIblLNcm8BWvtUV8KuAIcDEgCfCLddP4zLK3mwRTgUsziIIYbpEQgBNSMz5H7 ORChMIXMZPH4QQJdHS7mAGXlVKEeYnHzKAKZRA6CWH DyEPYivYMfSEHeSMAWOV7RTPjqKBR3GnbmjmIchMZwUKshJO5ZNSSrkmGcSkNyMDGBPEf+Kg3TGL0ok7 CoLOqkNcUeHH0pdd2KCZxQKzGpQ0V9gDByD9O0AOygVs8LMRNpUICwOmScZBOMPNxqDR8FVO8lksR1AK 7MkQZjZJYdBUHlkZIjZWh8K84fpSQsCQkbUN9IVPU+ Simin+Mf5VNQRzDUFeFJKdKrNtGXKPMoNpU2GkU3FJm1YvM2GyLV33hAypljBjUThzFB3WLI0aNGBvEZLA MN0PpHLasI1rtnPjZBKvUYPBQoHdJ78ycSLmYEIeKNEkHQIzQd7PNNLkT0HgynInsNopjdLnNZKzRLVR XL7USMvenwPumYCtzJhjOW08bLenBP7OQk1BKeLiFI 0pjf6PaHKdJm2WHGBuNl3RTECqQHEmTMJnRGY4GJVpNhXcZIjaBOXrEYQcKTV4EIOtKBHsXK2HOgBbUF QsUSv5HHUbTFXdYHIuqh8SPQUtJJIhTAjkBmCiGYLxYJIfQZxjMERdCCQlRPN9KXBxXTKxKB3NOmFdEP DdBNG2RrBrBKMtUSEomr6IUTSzZERgBuBiELVpFNUk MYThFAffZFKdGDQzEDxnXQKbYXJaZO0QUfFfJOFjMJVaEGAqRUEoIKCihm6NNWEvKHPoNhR9SRYqYCSt PZPrXUywPQKgXRJ3VHK9XCDlCVUfXC7GRvRvTMYpDCZ8XhSdQEHeTNNppx9LLGNlLBKrMBluQiMoNFFq KCUqHKjlUDImOVC3ORO7XJAuFWVqEB9LOxBgEDNqDB w0AkUoZUShBRBzdl7FRWHaWXZmCtB7KOYcRNKsMZUvKPgaHYFwXSZ8YFSnWFDcICYeTU5KOdFiWMUpHE cpJnKeXKZzVLMpwy1LWBTpGCRrAWUpZZKmBYHnFAZmVZkoUCGvWNR8IFbwFRFtAJKyUJ0QRfRaEHNuTN vdNbYpQOZvHAVhnk9DLFKoUODjETR5VCDgZBImLQGj WHyhWYYqHZW7KMEzLVSpQTEbVS6IBhPuSVWcYcTxJyNtGCSlFVQvpw3NMBDaVIPoYIdaEYRbBMOxPZAm YKsjJEYlOOTvRIk9VUGwGHPbSR1NKaMyJIViOyIpRzCvNLKiLDLisd8QwOJlpOgidj1XMNcXVx9GeDzi BID3DJtrFn6tkLVoZnVdJGRTNv4XztMhUNOkZIPEFO quQGQcAXYhXJAnKgU5OlMhPgDzGSY5ViB8DZM7VuI8CPI1UBW7DgS1J2B4XPEgVxo6KrKmGVGjZdOnBT RlMTYyYjgxZThhMjg+PG2qLEc+Uw4Wh3FyjzO6gbSaGRdqCkD3IS6BBLHRF3NHVv== ID Date Data Source [id number] 09/26/2020 03:50:37 PM EDT [facility] Name Value Range Interpretation Code Description Data Cinthia rce(s) Supporting Document(s) Progress Notes [facility] HVXVKk8mNiAYYaWm02/VYMzdIIBam6HiYFjuRKr3NHugENJrB4GxBXU2dN4cHBB3UUpLAmVpUqRmEvQ1 lbm [file] AgICAgICAgICAgICAgICAgICAgICAgICAgICAgICAgICAgICAgICAgICAgICAgICAgICAgICAgICAgIC AgICAgICAgICAgICAgICAgICAgICAgICAgICAgICAg ICAgICANCiAgICAgICAgICAgICAgICAgICAgICAgICAgICAgICAgICAgICAgICAgICAgICAgICAgICAg ICAgICAgICAgICAgICAgICAgICAgICAgICAgICAgICAgICAgICAgICAgICAgICANCiAgICAgICAgICAg ICAgICAgICAgICAgICAgICAgICAgICAgICAgICAgIC AgICAgICAgICAgICAgICAgICAgICAgICAgICAgICAgICAgICAgICAgICAgICAgICAgICAgICAgICANCi AgICAgICAgICAgICAgICAgICAgICAgICAgICAgICAgICAgICAgICAgICAgICAgICAgICAgICAgICAgIC AgICAgICAgICAgICAgICAgICAgICAgICAgICAgICAg ICAgICAgICANCiAgICAgICAgICAgICAgICAgICAgICAgICAgICAgICAgICAgICAgICAgICAgICAgICAg ICAgICAgICAgICAgICAgICAgICAgICAgICAgICAgICAgICAgICAgICAgICAgICAgICANCiAgICAgICAg ICAgICAgICAgICAgICAgICAgICAgICAgICAgICAgIC AgICAgICAgICAgICAgICAgICAgICAgICAgICAgICAgICAgICAgICAgICAgICAgICAgICAgICAgICAgIC ANCiAgICAgICAgICAgICAgICAgICAgICAgICAgICAgICAgICAgICAgICAgICAgICAgICAgICAgICAgIC AgICAgICAgICAgICAgICAgICAgICAgICAgICAgICAg ICAgICAgICAgICANCiAgICAgICAgICAgICAgICAgICAgICAgICAgICAgICAgICAgICAgICAgICAgICAg ICAgICAgICAgICAgICAgICAgICAgICAgICAgICAgICAgICAgICAgICAgICAgICAgICAgICANCiAgICAg ICAgICAgICAgICAgICAgICAgICAgICAgICAgICAgIC AgICAgICAgICAgICAgICAgICAgICAgICAgICAgICAgICAgICAgICAgICAgICAgICAgICAgICAgICAgIC AgICANCiAgICAgICAgICAgICAgICAgICAgICAgICAgICAgICAgICAgICAgICAgICAgICAgICAgICAgIC AgICAgICAgICAgICAgICAgICAgICAgICAgICAgICAg ICAgICAgICAgICAgICANCjw/xJEiK4klhMTbwlS4N0snBk0XTm2DTP5ez7BuNLSyERdrnzPkXfvXBnCa DECnXlqRBbx2TQbpDU6XqRVbZ5QaQ7HcXXcgCX1NHNQiHQPivPEvMFKpLHPiUyS5BIHaDXrrWF2NvYFy RWxkQJKyIFLwRQ6YVFFaQ286taJyYX6AKq4XLyOfOS 7glr2QAvXeBJGeRmqGIsi6RXpoFE9BmDViuNWcIgTwRUEEJpMdA2dom9DfQgNbSLXNOOrtEZ1Ls0AqpW AxDQo+Mx0ANM3os4HmSOfxXrMfZJ1itd7QWOxGSuLoR8PtaIvsFOLjh8zzVNJuEE6npTVhSXV7EUiscY LjGPBEQHAkZARiFNE1VKEkGA1kVYXbWPVhDqM0CTQR DA2APHZlBAGzjWJbFOKbSECIUH6GJMdfJUD5IuxstfQldASxJKwsMB3OVBWcdzFyMaBcIZJDMWa+Pg0K FJ6ju2AqDSnqChGsXU1fci9AZJrNVoPrE3U1hKHdO4G9BKlcHm2MNINyIALsVjYsIZMCAVdgLN9BXH2q qzU9ML6HxDZfQTLjEZHecCOsGEh3E75yeRLjEBqsQO 0KICA+Simin+Vn9OXYJvLKIvNHSiAlYpCMPNHuDaP4MhL0RQf0QaO8XhJG10lRjliiNuJEaxQT5VIG3iUH DtIEQRRE1LeRUzqD3qinQpCHJzLBZCKuKfJ28uaUYwVTLtFXZ3ZRDsFb9NDJTxZ5HaphQcnPlgnqNcKB QjKHUDHE4LZBwxrsWkmRNixTauPQ26vWmpBG3TJn2M RnZfCL8qzo2ScUKwWc6UHEPoYV5VDPHfCJGrAWAbLAX2PEYoPtXnVLoxIUWjVADfTSG2QXLlPIBuVQ9P LnGkVCEqFsXqEbWkCRTiACLtnm1WCCNkUXHpDNz5SKDmRNGaDSBdGVhzGPPgATWrWSQ9BCYoLXFeQF3I YkZmMZRdZVIdDCHfQHAvWTRnjf4KDDBxCKLfQXU9YB JrMHJgCXEqMDrcLRXxMXPpRGS9RZOhALMtTZ7ZYpAaZQNhJBW6QYdcDKKpTFAojn8SXJQhUAMfPoy2Wi ImTBWgMRFrFVngJZFbOOWnKNPqYFMsCRBvMU8QFmUnUVMpKDBwDJomHNVrIDFpmu2JUZKyWYGbWIPvGS NcWNIwCXQpQXuxNSOgJZV5ERj5XFVcVICmUU5LJdMv WRWcVIU9ASGxBPEkXACazc8NLPNfSTEwJdAbIITvDXXzAAJpVUzyFJRwONU0HsE2JZLbQVRaSY0POjPm KLQaYKg4EBOfPGBkONVldw4XHLHwVFHoECIfUjXqBFPaLCLaWKbwBTCrXJM9VvU7ACUzDLDwRS6PTxXs TOUiWQc2QZCyWIUdUUQvmr9UOJFnDSLuIFc2RBFrKF OuIKFcBMbkKZDsUJK5YJF8QGEgJBSkBJ0KFpVeIRLePoTlKHEwWIUeYLYipp5EBNPhZXPqKUNiNBVyFV NzMUDiCDcyKQMwATYvRAxxLGWjGWKfQX5SQuDoMEHlIkKkUWIxFJMyZPRvbv6PRSWjTDVaVuT3EoJuIW YvHIWzJPt1lhUvbBPlPYh3QI3HG3RzgvGcRkvWUa1Y w609WON3QKQqAc0RW2dpUr6uANLjDDMKPj8AJIl2GYEmBWX1QWYiQLOtQWCaKsB2HlX7ESV9WlMrMnS6 OWM+TTkwXIH0MAF8DhGsQiBrKQNfSmJ6GWe2PqdxP1PzYBL3Bw9iXUYGDn5+DQpzdGFydHhyZWYNCjIy PDLpRXsnSVNVQv1Y ID Date Data Source [id number] 09/26/2020 12:13:07 PM EDT [facility] Name Value Range Interpretation Code Description Data Cinthia rce(s) Supporting Document(s) Care Plan [facility] DDDYIx2oYpCNEoUf16/PIFueBWJvm0TnWMzvFTl7OYrjZVQjM1BaHTA9kE4gMUA6YFyTKjWmQxRxDtR8 lbm [file] AgICAgICAgICAgICAgICAgICAgICAgICAgICAgICAgICAgICAgICAgICAgICAgICAgICAgICAgICAgIC AgICAgICAgICAgICAgICAgICAgICAgICAgICAgICAg ICAgDQogICAgICAgICAgICAgICAgICAgICAgICAgICAgICAgICAgICAgICAgICAgICAgICAgICAgICAg ICAgICAgICAgICAgICAgICAgICAgICAgICAgICAgICAgICAgICAgICAgICAgDQogICAgICAgICAgICAg ICAgICAgICAgICAgICAgICAgICAgICAgICAgICAgIC AgICAgICAgICAgICAgICAgICAgICAgICAgICAgICAgICAgICAgICAgICAgICAgICAgICAgICAgDQogIC AgICAgICAgICAgICAgICAgICAgICAgICAgICAgICAgICAgICAgICAgICAgICAgICAgICAgICAgICAgIC AgICAgICAgICAgICAgICAgICAgICAgICAgICAgICAg ICAgICAgDQogICAgICAgICAgICAgICAgICAgICAgICAgICAgICAgICAgICAgICAgICAgICAgICAgICAg ICAgICAgICAgICAgICAgICAgICAgICAgICAgICAgICAgICAgICAgICAgICAgICAgDQogICAgICAgICAg ICAgICAgICAgICAgICAgICAgICAgICAgICAgICAgIC AgICAgICAgICAgICAgICAgICAgICAgICAgICAgICAgICAgICAgICAgICAgICAgICAgICAgICAgICAgDQ ogICAgICAgICAgICAgICAgICAgICAgICAgICAgICAgICAgICAgICAgICAgICAgICAgICAgICAgICAgIC AgICAgICAgICAgICAgICAgICAgICAgICAgICAgICAg ICAgICAgICAgDQogICAgICAgICAgICAgICAgICAgICAgICAgICAgICAgICAgICAgICAgICAgICAgICAg ICAgICAgICAgICAgICAgICAgICAgICAgICAgICAgICAgICAgICAgICAgICAgICAgICAgDQogICAgICAg ICAgICAgICAgICAgICAgICAgICAgICAgICAgICAgIC AgICAgICAgICAgICAgICAgICAgICAgICAgICAgICAgICAgICAgICAgICAgICAgICAgICAgICAgICAgIC AgDQogICAgICAgICAgICAgICAgICAgICAgICAgICAgICAgICAgICAgICAgICAgICAgICAgICAgICAgIC AgICAgICAgICAgICAgICAgICAgICAgICAgICAgICAg FFBgCSPvYUSfRAUnAZw4Q2zvSBDjZQUsUY7pQZt9Fv5+YDoRNkHyCGY6jbXpgP2KTQ5nm0TlRYpiBWAw n9LmRYd8QE8XBMMbKWbqVG8RMBzasi9TJDPnLEBksKVPr1wyLzQvHTC6FNXzUntkGI6GQRHoY3tixcJu EMMaUCRESW7ZEyLvA2UuyP13XDYOCp5+DQplbmRvYm pFZqS2EBHmm3FqHAy8UY9QMLVzUkmmo7CzXgCzSGLMFYdjYI7HCXW6ONA1EKNhWa2JPHFkO141nqJxSD 9MTy7DLtVmWZ7qwq6GKoSyAZPwFjsZDsg0ISdkOI1VmORuFKuQFJQqMSMxGE0uAgwnVGHuoPCzGMHRy0 L2AVWtGVDOXWK7PUAsLX8gYIQvOFAdLvSuPNCFES9J AMKvSTDycUCnPDVpBJWAMM0ECRpdOTS8XxxjbvWdvKHwJPskAY8RVFGjhySuLqUdIQBFZZd+Zj0QFM2s h2EaQTmhHrLhMY0nsq6DAItTEbGgE1M3lKQjR9G6JOqkYz9LNEKuGITmXzNaGSPTGFlwIH7DDA6newZ3 WX2KrVCbZEKxIESqpUJsMYc8X72slRGaGZdnQA5EYF A+Simin+Nm2VBEZuOSYrYGBnDoKrODCUOcNkB5PmR0VYe4QrU1DbRE29hYwwhzYuYXsaQD6XFE4rEIWzDJ WNRF0GfSWrqH9ruoQlPMTrMCUUYzJtH10ttOEtRQFeRYX1YQFuTe8CLTFnL4FuhjFsdWvlvfRxDNIdQX WHFN2UCAsvvzVwyHHbiIexTJ05wYveMV2LEj2ONwBe VP0jzp5AvZNfMz8NHZQvCN5VOAQoSWBnGPTdHQH0LWQsNyYnRYsyPZRpVKDlEPH3HJXsELSzTF9AWjVw DYQxPhX8ElFbWABoKAZarq9HJRKmWMNkLrE1UGEvOAJcDJMuCEpmPDSoDXEkYOC8YBRjYZQrQA5MChHi IPXtBLQ4LzOrTODgIVLfsj9OTVFdYJZnWRwvRYRzEE MuPEReUAvrXZRoGUFaGprhJCWjMBOaWV6PYiFeWRTiZRS1NARaFUFnOUZkwk3NIVZgBURtAvD2RASvLH JtIULpCKcxWQPpMMS4VUF2FAIfUMOhXI9JYdWqLANdODPnOqNsRLGiJTAqnf4MADXjGZXkNQIaOiLpXD LbTQXnJTqsDFNgGTO7FRH7SKUwQSOfCE5WRqLvTPDl OJeaECArVVTlZXPbyk3FYMRrGZGiJlQ0AVLyTNBiOAKbPJvgRDJhRTN9AfBxQDImSIVpHW7EHyXcWDNu GPs5QtajXFLiAECojb4SJCDcTCZiPMivEIYzLJLdZATcOHesCTDuNYD4ZSX6UBThHVRiIC6FBqEyTLMd OOztUXWtVYVqFBGguj2GXTHfWPYqPOD5HHZoZTDxWE ZuBJlwOTReFCQpHcSxHSFbKTIdDY7RZhZvWBZhJhJ9VUHrQZYuWARjkq7SARRbFTAxYQvyVWGmGKYhNY KmAOxiCJAbCMWiLozcKEUnGEWeAU6ULrXoKOSsRmMlAWPoLBUhEVIevj0BLSBbNQWmJrB8EvOcHWCfDO YoOHj2syQfwFBfRUm1CM0FK5RrjkLzSabIDg8Or975 XDU0BOFdXw6PH7opDr2wKGWmTSZKOk8PWEx0NsCtTXU3WQO5KQq7N0AyKSPoWcTfXNd0BaxcDMB4EyM+ CAbtW0RgOSHpPSZcAEehVSW2LGScAhW3QGq6BURlEPP7Fd8qXMQUMb5+DQpzdGFydHhyZWYNCjIyNzMx FDbaRFDGAd9K ID Date Data Source [id number] 09/26/2020 10:53:54 AM EDT [facility] Name Value Range Interpretation Code Description Data Cinthia rce(s) Supporting Document(s) H&P [facility] BBNGOy2yGqYUHqPy31/HKMjhAIWhf9EcVZplYYg8HHceMATrY4XbAOL6zQ9aIXS0VMdOBxVkHtXxVxP0 lbm [file] AgICAgICAgICAgICAgICAgICAgICAgICAgICAgICAgICAgICAgICAgICAgICAgICAgICAgICAgICAgIC AgICAgICAgICAgICAgICAgICAgICAgICAgICAgICANCiAgICAgICAgICAgICAgICAgICAgICAgICAgIC AgICAgICAgICAgICAgICAgICAgICAgICAgICAgICAg ICAgICAgICAgICAgICAgICAgICAgICAgICAgICAgICAgICAgICAgICANCiAgICAgICAgICAgICAgICAg ICAgICAgICAgICAgICAgICAgICAgICAgICAgICAgICAgICAgICAgICAgICAgICAgICAgICAgICAgICAg ICAgICAgICAgICAgICAgICAgICAgICANCiAgICAgIC AgICAgICAgICAgICAgICAgICAgICAgICAgICAgICAgICAgICAgICAgICAgICAgICAgICAgICAgICAgIC AgICAgICAgICAgICAgICAgICAgICAgICAgICAgICAgICANCiAgICAgICAgICAgICAgICAgICAgICAgIC AgICAgICAgICAgICAgICAgICAgICAgICAgICAgICAg ICAgICAgICAgICAgICAgICAgICAgICAgICAgICAgICAgICAgICAgICAgICANCiAgICAgICAgICAgICAg ICAgICAgICAgICAgICAgICAgICAgICAgICAgICAgICAgICAgICAgICAgICAgICAgICAgICAgICAgICAg ICAgICAgICAgICAgICAgICAgICAgICAgICANCiAgIC AgICAgICAgICAgICAgICAgICAgICAgICAgICAgICAgICAgICAgICAgICAgICAgICAgICAgICAgICAgIC AgICAgICAgICAgICAgICAgICAgICAgICAgICAgICAgICAgICANCiAgICAgICAgICAgICAgICAgICAgIC AgICAgICAgICAgICAgICAgICAgICAgICAgICAgICAg ICAgICAgICAgICAgICAgICAgICAgICAgICAgICAgICAgICAgICAgICAgICAgICANCiAgICAgICAgICAg ICAgICAgICAgICAgICAgICAgICAgICAgICAgICAgICAgICAgICAgICAgICAgICAgICAgICAgICAgICAg ICAgICAgICAgICAgICAgICAgICAgICAgICAgICANCi AgICAgICAgICAgICAgICAgICAgICAgICAgICAgICAgICAgICAgICAgICAgICAgICAgICAgICAgICAgIC AgICAgICAgICAgICAgICAgICAgICAgICAgICAgICAgICAgICAgICANCjw/nLVvA8qyvSRhdsF6J0ugRh 4ECd4ODF0pw1KnDZThTPbqrpDpHazOFfCsMKPdQndJ Mfl2OYxuFY6IrGXaR6HmO4EhKSbnVZ1FSTNwZWJqgHJsIVJrINJcKgV5CLFxYZqaCF6OkECiJSidROOs UMNpBdVkOHWuQM0SSBLgX644nsFlBy9ARx5LHyVoBU5nti3ECrcvJAVvBbmIBbr6FTmnNS5CzDQtwEDq GQOgLAAEEiPzH8kii2LvJaApQZWXVOdbCF9Jf7IgdT AxDQo+Fv1YPH2rn3MlRXawCDXgIV8iwi1FDDoCZpYwQ6QqkBfpQZxhBNNomENCnOpttpRENHF6UTBbqO mgIpIcLMLbGk67OuHnKjCoEJK3SZWzBL0hPXzrYE6XRKE4JHkzOYUwLQOxC1rTPrDcBIsoYGWwwFbhTQ 4FVpRrB0YmtnIlfGXxWOHpASPHHb8+DQplbmRvYmoN LeMhAUQnu6SgZJj1BP2EPSRiIDnxHA4CXMBbvI3wSZhvBH5XYrDiWyNuDRSGXpQyI78mdLWbJLl1Y1Qe YmVkZGVkRmlsZXMgPDwvTmFtZXMgWyBdDQogID4+ID4+ILzeHC9EARsqxiDdXERzYm0YIYEiFSLjOX4n ONWxAKGkB6B0xSvhFYHYXgYwW7dhehybIW9mZUQtG7 62vGmwiuNiDEN4RZJvGd0WYZQhALF3BTShfRDnUrtjGGWWGMxiFC1EzAFwNMW8vC8rOZgtVTBzUVMoE4 tONuNafRsgDW96pFscbrWhyRGkKVu+Pn5VXU1nq8VeFOb8qjOzIBuwUAHwOHhhSMYoTQShLLXkKYN0KC B3BRSQJbThECHkTXCdAHdpIHUaIYLogx4UUVShOYCx JqW5UGBsUJYaSVRkCAkhATGlMIK0MIUoVYNyOZKnLP1CIsAqPMPqSGZpPFbbZAWlTQFalr8FOHUaDTWl PLF8UPXbEWFySNOtWCnsCYNdCWK7JFO9IEAdMHXeCM4NQrOfAXQeCUraGAIbUOKsWFHxxe9YEXJwTFDx RDC2CZVoZBXiVPPwUNznXEXeIPU8XxF2BJVkVVBjSO 1ILjHlDXJyUIl9HUjzFGRqILEbys8UKMYnQLLzGFmrMhFlLKIxSNCqAEmcLFKtTZSxGdmdPZStQULcFI 3XLeTlEGYwOJZ5JOSsFEUgRANemk5FNHEmYVZhSVB7ClVoCKHqRMUiJZrsNPDbJGTsCPDyPLSiKFJnWH 9BFpBrVNHwSICqZqzyIYJiWZEwol2SSJQfPFEqBqWt VHKzSKClZZBiIDudGPDpCWNlWnx7JQHlFWOxKK1GFePrQSOqFSK4HSmdATFgQJWczx2BUODtRYAbZjs1 EdAfWEPuNBJoKOlvZOMwWLTdPpbdMYXaLTLaBQ5POcIqANGmZnM5PzMpSEVsBIAzuw2AZADqFYNlQlZ0 VSKfTRUxJXPfPJnjCUFxEHEkVuX5TATzBKFoXH8JUy IdSXXpZuD0JaFzFHPcXPWeut0RZXCaPSKnOoA8SwJkALCfRETaROjtRMExOVTeHgG0DMRhLJErNR0ZIg SyEBIyYeV6VFWrFJYmNXWatj0CHERtIVEcKNU9BVQpRXQjTODxQEafQICjRQF2BeZ4BELaFMPrZC2QWc KmEGFmLyD2NDRcNWQkUZMpsg4CqJUdvUvuhf2KVZiQ Xg6TpBydVIZgRDsmYb1ltYSyEEOiOBSXMh6ZchDnPFDzJEBMEApzVFHoALBfX1Q8LCauKkG2HVC5NQZ0 MeK7ZJVwCyW9WIH9URW1AvN4FLHlPCsqUDRhWbI6HqQ4Ljg7TPA5LmX0GBclVLm1Cxv+JA2vVIm+Pg0K j3JwjmZ4wcKlGVskXWD2Dj9EPLMFJ6LGDo== ID Date Data Source [id number] 09/26/2020 08:59:21 AM EDT [facility] Name Value Range Interpretation Code Description Data Cinthia rce(s) Supporting Document(s) ED Provider Notes [facility] GJEKVt9hDjVLRgLg52/XNRenZQZxx6FuUFhaDRr4BLpaEAWzK6TrNZB6iS9vKII9WBqAGyCkLuWwKeW9 lbm [file] VofC+JxyJdekv3Fd8Re4mzPL/HTGkOvfcjcSNhZYfyhwF2GrrzlhNXeD3dD1z/aL/vázquez+zQgp9xg6vodl [file] FH0PBe4VGxD1THO8kJLsMd2NFxJlPeWPKpZtTF3JZCi= ID Date Data Source [id number] 09/26/2020 07:33:20 AM EDT [facility] Name Value Range Interpretation Code Description Data Cinthia rce(s) Supporting Document(s) Nursing Note [facility] GMBRSm0rZnDLPdPm30/GVLtyYQZqs5TfREpyJXp8BElqMBNoF1GfJTM6eG4xLZS7MKpRUpHfSsLkKmO3 lbm [file] ICAgICAgICAgICAgICAgICAgICAgICAgICAgICAgICAgICAgICAgICAgICAgICAgICAgICAgICAgICAg ICAgICAgICAgICAgICANCiAgICAgICAgICAgICAgICAgICAgICAgICAgICAgICAgICAgICAgICAgICAg ICAgICAgICAgICAgICAgICAgICAgICAgICAgICAgIC AgICAgICAgICAgICAgICAgICAgICAgICANCiAgICAgICAgICAgICAgICAgICAgICAgICAgICAgICAgIC AgICAgICAgICAgICAgICAgICAgICAgICAgICAgICAgICAgICAgICAgICAgICAgICAgICAgICAgICAgIC AgICAgICANCiAgICAgICAgICAgICAgICAgICAgICAg ICAgICAgICAgICAgICAgICAgICAgICAgICAgICAgICAgICAgICAgICAgICAgICAgICAgICAgICAgICAg ICAgICAgICAgICAgICAgICANCiAgICAgICAgICAgICAgICAgICAgICAgICAgICAgICAgICAgICAgICAg ICAgICAgICAgICAgICAgICAgICAgICAgICAgICAgIC AgICAgICAgICAgICAgICAgICAgICAgICAgICANCiAgICAgICAgICAgICAgICAgICAgICAgICAgICAgIC AgICAgICAgICAgICAgICAgICAgICAgICAgICAgICAgICAgICAgICAgICAgICAgICAgICAgICAgICAgIC AgICAgICAgICANCiAgICAgICAgICAgICAgICAgICAg ICAgICAgICAgICAgICAgICAgICAgICAgICAgICAgICAgICAgICAgICAgICAgICAgICAgICAgICAgICAg ICAgICAgICAgICAgICAgICAgICANCiAgICAgICAgICAgICAgICAgICAgICAgICAgICAgICAgICAgICAg ICAgICAgICAgICAgICAgICAgICAgICAgICAgICAgIC AgICAgICAgICAgICAgICAgICAgICAgICAgICAgICANCiAgICAgICAgICAgICAgICAgICAgICAgICAgIC AgICAgICAgICAgICAgICAgICAgICAgICAgICAgICAgICAgICAgICAgICAgICAgICAgICAgICAgICAgIC AgICAgICAgICAgICANCiAgICAgICAgICAgICAgICAg ICAgICAgICAgICAgICAgICAgICAgICAgICAgICAgICAgICAgICAgICAgICAgICAgICAgICAgICAgICAg ICAgICAgICAgICAgICAgICAgICAgICANCjw/aIIcI4twfRBsgqM4L4yhAk3TLg0ILR3am5FrMVLwZIhi imYlQudSDrBrZAWzNwzJTaj7AZagZV3LaMIqF1LrA7 QiJOclXK6FJRUlBYSjpVDpJKDaGPAiZtV5BCShZVloXG2JyUTvYWwgIAYiSYDyRU2RMXKsO250cpByPJ 8WOd1XUmDoKL2spj4VNyCmCPPkJibLHwq2RIkhNE4EyGBysEDtEfIuTXIPAdLuJ6vtv7AlObyuMGTVTZ dgMZ6Lp5VcwPWvJAr+An8RQY9lt5ArHEusEaTyFB6n rr9ULEhLAtVqG6YijOptMD90wyTwwykyLn07MNYwfIVAFEZqcJMwNrgzW5mpLHBDUEE5ZWXbJV6yLOLs XCW9EyDzFMUFAH2EOMKuDKRudPXtCYJjUSKUUV1TGCnzHLS8JwrictCcvPDkPCopUL3TYWGaooOuTfKl MCBSDQo+Tb0IVW6hu0LuTHjeYYPzDX7biw3UMDmPKc SiE2G1hZRxL8O5LCbtMf4EOEQvKPZrEnTdQMTRUVcaUL6GCH9axpQ3SX8PnRKtTEUwCFCdkOXwFCq6B1 1fxHChRZbpFD0CIOA+Simin+Zp1DPOAtEJVlNOLiYvMdVFJFNpXhY9PsF5FNi8WpO5MzWJ32yMlwiaQjHE zsIM7GOE3cBZNvBLBTEU6ZzQOfoP1dkyOmUdAwUIUA YxAvK40hdMVkFXNjOQN6SBXsMn3THKSwN8KwvdRltPvvjkHoBZXsQYDVJX7VWAsxsaDgrYQggRdbVY32 yYhbSD4MVf0FOoSlQJ8qbi9QcUGpNl0YDIKpLN2GGDJsWACrKDAbXMU0KRWpRuBbNVtcUXWlLJLlUDE1 BMWuXYKzTJ4AYmRcWPHpNwJeCPKlZXSbTWHntv7CZU QiUSQnUBk8LxSkHAVpHYMmERfnNLPmBCBpTUF9GIBpMEPuKT9WQdTmUISpXPBjIqYqTEHoYTTjfu5IDP NkPHXpEDB8AVSaAAMxZLRxTZumAWPnBXEqFdK6VVBpPBGwKC9QSoHjNBOrNUB9SvodEBEeHJEyou4IKW AwMDAwMjcyMyAwMDAwMCBuDQowMDAwMDAzNjgyIDAw IWAgVL4HPqEuYLQmQMZ8AjlePCKcIHAxvy8ZQVJeGLWeTAR9SRYmFXKoVTXuUSqlIMBkXUF5AKPuAWZu LRNpFJ1MQsKoOEReJQS0BcCmSYNpPWKwot3HLZUfDPBwIlijGCFeWWEdOFFcVDbpTTZhEDD5UDq3HHCp OEOqMS9WFcOpRVAtFIkzFjUvKNGrRJEbhd1VBJJpUM XsDVX3PoHlDWCoILOnJFxsNGFqIUY1ORW3OXKrUJUsYJ1TVoAlFTRpDYp1NcEvSWOvCGRfnl1CNIFcGN NmUNo5ATItLRDeHZOzHZabRMFzQJWiNYs4XXXfKFMlRN4AJnFxOUWiLbU3LQYbQQGaMOFdki0VHRRqRG AhRNE5VCVlQIFvGULjEVsbEJXkGIP8RFReJWIeULOk KU8CFmDzOGXkRpQ4BSIaAZKcKQBjvk9FPQAfAXKsEwF3SSLgFDLeILHdBEfxCRXtLHQ5GWe3CGRjLKUf MX4EFrQnEGqyTIYMFkv6LByaO3k8WVVlBK6YC8Kym9GfDepzZVLCDSeoCH7fjtAvCLDzOt4BL9fYMbvq CYCoB0G3MXHbXFPkJHEeAcP6AgJxPUNhKMVeQHYeRF 1fGUBuXjR0FvOcDwJ9BfTbY0Y4TuB2ToLwPsV2LKFoR2UxJeGzZY0LJq9GMjQ1OZB4zZOdFs1QTmY8Eu lNQzBeMR1ETSu= ID Date Data Source [id number] 09/26/2020 07:34:00 AM EDT [facility] Name Value Range Interpretation Code Description Data Cinthia rce(s) Supporting Document(s) AST 20 IU/L 15-37 Normal (applies to non-numeric resul ts) [facility] Sulfasalazine and sulfapyridine have the potential to falsely depressAspartate Aminotransferase results. Baseline values before medication administration are recommended. ALT 16 IU/L 16-61 Normal (applies to non-numeric resul ts) [facility] Sulfasalazine and sulfapyridine have the potential to falsely depressAlanine Aminotransferase results. Baseline values before medication administration are recommended. Alkaline Phosphatase 68 mIU/ml 50-136 Normal (applies to non-num aries results) [facility] Total Bilirubin 0.50 mg/dl 0.20-1.00 Normal (applies to non-numeric results) [facility] Blood Urea Nitrogen 10 mg/dl 7-18 Normal (applies to non-nume ami results) [facility] Creatinine 0.90 mg/dl 0.67-1.17 Normal (applies to non-numeric resul ts) [facility] N-Acetylcysteine (NAC) and Metamizole vázquez ve the potential to falselydepress Creatinine results. Baseline values before medication adminstration are recommended. Patients undergoing treatment with phenindione will have falselydepressed results. Patients on phenindione therapy should be tested with an alternativeCREA method.Toxic levels of acetaminophen may lead to falsely depressed results forpatient samples. Glomerular Filtration Rate >90.00 mL/min/1.73m2 [facility] GFR Reference Ranges:Normal Function or Mild Renal [...] of Health and the National [employer]ney[employer]. The [place] method used in calculating this result is traceable to IDMS standards. Glucose 96 mg/dl 70-110 Normal (applies to non-numeric resul ts) [facility] Sulfasalazine has the potential to false ly depress Glucose results. Sulfapyridine has the potential to falsely elevate Glucose results. Baseline values before medication administration are recommended. Calcium 8.7 mg/dl 8.5-10.1 Normal (applies to non-numeric resul ts) [facility] Total Protein 7.0 g/dl 6.4-8.2 Normal (applies to non-numeric re sults) [facility] Albumin 3.6 g/dl 3.4-5.0 Normal (applies to non-numeric resul ts) [facility] Sodium 139 mEq/L 136-145 Normal (applies to non-numeric resul ts) [facility] Potassium 4.0 mEq/L 3.5-5.1 Normal (applies to non-numeric resul ts) [facility] Chloride 107.0 mEq/L 98.0-107.0 Normal (applies to non-numeric resu lts) [facility] Carbon Dioxide 28.0 mMol/L 21.0-32.0 Normal (applies to non-numeric results) [facility] Anion Gap 8.0 7.0-15.0 Normal (applies to non-numeric resul ts) [facility] The above 16 analytes were performed by [facility] [address], ,[place] [address] ID Date Data Source [id number] 09/26/2020 07:34:00 AM EDT [facility] Name Value Range Interpretation Code Description Data Cinthia rce(s) Supporting Document(s) Triglycerides 82 mg/dl 30-200 Normal (applies to non-numeric re sults) [facility] N-Acetylcysteine (NAC) and Metamizole vázquez ve the potential to falselydepress Triglyceride results. Baseline values before medication adminstration are recommended. Cholesterol 156 mg/dl 0-200 Normal (applies to non-numeric resu lts) [facility] HDL Cholesterol 65 mg/dl 30-70 Normal (applies to non-numeric results) [facility] N-Acetylcysteine (NAC) and Metamizole vázquez ve the potential to falselydepress HDL Cholesterol results. Baseline values before medication adminstration are recommended. LDL Cholesterol 74.6 mg/dl 0.0-100.0 Normal (applies to non-numeric results) [facility] Cholesterol/ HDL Ratio 2.4 0.0-5.0 Normal (applies to non-n umeric results) [facility] LDL/HDL Ratio 1.1 [facility] The above 6 analytes were performed by [facility] [id number] [place] [address],[facility]#: [id number],[place] [address] ID Date Data Source [id number] 09/26/2020 05:34:23 AM EDT [facility] Name Value Range Interpretation Code Description Data Cinthia rce(s) Supporting Document(s) Nursing Note [facility] HYGFNz9sLqNXFlTs47/RWXmxHMQpl1LtHPvzUSd8RTxmPZEuG1GlBMQ0uJ6aJGV6IVjCNgGbOcOkBoB0 lbm [file] EIf8YaXoKde7NVMhBJBvK6PnLaSkTF4MFj6UWhF9VGF0gNUhOo3QOuM4AQbIWyIyMN3LWEk= ID Date Data Source [id number] 09/25/2020 10:28:42 PM EDT [facility] Name Value Range Interpretation Code Description Data Cinthia rce(s) Supporting Document(s) Nursing Note [facility] JHDDCy1gUlRPWxFn02/LKLuaPDWgg5EjPZdiXXi9VBueZNYaF4UiEOM2gY5aPTL5ZWdZEtJxYnDiQcZg lbm [file] IXUpNPhxQWK2HQK8ERQaEXM4JiGxIjJoLH6NGr9YBtH7MDR8nYHqKo1OZhQ8IYdKJgEaSL1XMQg= ID Date Data Source [id number] 09/25/2020 08:59:37 PM EDT [facility] Name Value Range Interpretation Code Description Data Cinthia rce(s) Supporting Document(s) Care Plan [facility] OXLUVc1xPhYBVpGt73/QGXoeIMJqo4FcKZrqCNc0CYpqHNBaN1EqZDZ6qC1bBHN0WMzXVhAuWiGsRfOh lbm [file] OTkxMSAwMDAwMCBuDQowMDAwMDIwODUzIDAwMDAwIG 1NXjAxVOVoWpXfZEEnRYQoGMFvwp5MLWMuFWZoWEHiQaArVPXeTTFjTJlxKPVfHIAlGWf4DETlKJSkUT 7UMhCcRAIlVjRpAiWzJVRgDIErrf1FBYVrABPbFzEjQsRiFPLmTWNuPBkxVWTkEYYdZJlyJBAkZWMaZS 4CSmEaAWMhKwG5BZYcBHBqKTGyot0ZUIGuLRAjONW5 LJBmNAHvHARbTTbvTQJtIWT6KmT4HSOcTFKqWJ4UMaQlOCqaENXYNmq2PCbnV2e4BEGuOE7TV2Vhr5Tf IeksIBKLNZzmPO6ghuNeSEBcOx6MG2jGTngaEGX0QiDhYsD1XpR4TxTzGDS3MtriWTKoMEctNyEqAm5w EAYeWCO0BYSeQryyRmk6NiPtANFsW5EbEKMuONFtSQ ZsHgDiFZ3ZLq0UZxY7YVN3fUTcLg5MXnE8FpRQZrNkTE2GIVs= ID Date Data Source [id number] 09/25/2020 05:37:12 PM EDT [facility] Name Value Range Interpretation Code Description Data Cinthia rce(s) Supporting Document(s) Nursing Note [facility] UTZAKu8wHeOYWvRf43/SCRnyEEBcc2ZxKRgkFFq3HLbjJKEwM3RzJIK4iU7oXXU8ZQzOVuYaOrZeCaSf lbm [file] AgICAgICAgICAgICAgICAgICAgICAgICAgICAgICAgICAgICAgICAgICAgICAgICAgICAgICAgICAgIC AgICAgICAgICAgICAgICAgICAgICAgICAgICAgICAgICAgICAgDQogICAgICAgICAgICAgICAgICAgIC AgICAgICAgICAgICAgICAgICAgICAgICAgICAgICAg ICAgICAgICAgICAgICAgICAgICAgICAgICAgICAgICAgICAgICAgICAgICAgICAgDQogICAgICAgICAg ICAgICAgICAgICAgICAgICAgICAgICAgICAgICAgICAgICAgICAgICAgICAgICAgICAgICAgICAgICAg ICAgICAgICAgICAgICAgICAgICAgICAgICAgICAgDQ ogICAgICAgICAgICAgICAgICAgICAgICAgICAgICAgICAgICAgICAgICAgICAgICAgICAgICAgICAgIC AgICAgICAgICAgICAgICAgICAgICAgICAgICAgICAgICAgICAgICAgDQogICAgICAgICAgICAgICAgIC AgICAgICAgICAgICAgICAgICAgICAgICAgICAgICAg ICAgICAgICAgICAgICAgICAgICAgICAgICAgICAgICAgICAgICAgICAgICAgICAgICAgDQogICAgICAg ICAgICAgICAgICAgICAgICAgICAgICAgICAgICAgICAgICAgICAgICAgICAgICAgICAgICAgICAgICAg ICAgICAgICAgICAgICAgICAgICAgICAgICAgICAgIC AgDQogICAgICAgICAgICAgICAgICAgICAgICAgICAgICAgICAgICAgICAgICAgICAgICAgICAgICAgIC AgICAgICAgICAgICAgICAgICAgICAgICAgICAgICAgICAgICAgICAgICAgDQogICAgICAgICAgICAgIC AgICAgICAgICAgICAgICAgICAgICAgICAgICAgICAg ICAgICAgICAgICAgICAgICAgICAgICAgICAgICAgICAgICAgICAgICAgICAgICAgICAgICAgDQogICAg ICAgICAgICAgICAgICAgICAgICAgICAgICAgICAgICAgICAgICAgICAgICAgICAgICAgICAgICAgICAg ICAgICAgICAgICAgICAgICAgICAgICAgICAgICAgIC AgICAgDQogICAgICAgICAgICAgICAgICAgICAgICAgICAgICAgICAgICAgICAgICAgICAgICAgICAgIC VjGTFfDVCdJGXcBDKeAVKgOXYwBYMqXPEfIQFjLJTfEMOiFDXaFCUhLVVsFSMnSKa9Z4usPNCvKTEiDX 7uZCh9Vt7+OLhVFdJzJMY7kfKorJ8MNA1rv3QuUBns VRLeq0IjJTz0BB2BFTMpYDwpLY5WXMxguh4UTSWoIJKhvGAYz8huErEuKOD1OZHsPhhtUX1ZOKLyL0gk zrTcROHxOCAKUQ4JIvXwC8FsfC00ULGOEi0+OGvhvtJkSuaJLuRvVFWff0NmYIc5AX3CNZQeUzmxw0Ml KvAuDXUBFBtgJM9BSGW4TKSfODWrFd7UIKVwZ479em TpTB1UYh5UUzHoBI5tcn5QKmSgVJDlYbfDWas4RMzbPK8VrTQuXKuDkQIikW6kBQ6egQNgQnumUwScOU PbOVWAoWTxDZQpLUTOSeSlfTA8RhNiVmMuTQWbQSfxPCNEYZaUVdWhR3Rml2UsHeY8TYLkYjDmZZjrYM LhMaE4YU45bLziMS8XVMDtHGObKP63TRPiWOLwMq1P Yo8QPxYtND9gyq8DSgIrLVPzUevSVzp0FGnvVI8SqDZdU2GbgCMcv0vRYvMwD5OUMVYlKCGgPn9LBRUf EvSuDRHiFWwxYA0gRIXgJORWvNkcauQ7JU6KNI2txlIfLW4HFwTfTd4aFw0RYfZqY1InS8BdGLTiLGSS INksWB7OWBfcEI7hCN1Pw9LAcKZraP1adb1DUDNgBQ UwXufbfh3CYeduZ7S7mNvjAKFhByBrYAOXUWdwDG9HSBQjSBB8QHFjELRtFPVJBySuV30nGM2RW0Laj6 1uHoX7HEMzMwQgCQfkFF62nVgbswQsuSQksKszMC9HJd1+DQplbmRvYmoNCnhyZWYNCjAgMjUNCjAwMD IyDXMnEXOwMmC9HxSlSj5ECBUhNHExDUSwPgSaKCHi KDZsMDonWGDuUUG2YPG6TFCfUWXqHP7LZkPyBLWnKpDwWOAuRHXkESGrxt9HPKJtTJNrNHC7NpWqNIEj JBZtJAcfRINnLGRqUHh0JPCtXBNhWV6OMvGfIZSdMDChFLEwMUTyDXXkkf2JSXXjEEUfQdU7ABPcDVVa DJPjFMinNBFtOPOtVOYvLEEqVYOaFB5EIfXtJPVdBB Q9SINuOEYhHRVzka9HQLTyNTQoSxGuABNgVFZnJRHuBKfqRXTjQPSiIPKgFPBkDNIzAW7JGrTzPCHkRL T2NUUoUIBxERZpig2LAEEbUHOkIpGyPfGpXIErRNUsACkqHCSiGXZ8SjO3YEViMTMkPS7HYpQgKSBaSW B7LVwzHSJbJAHios5BPHAvQLGpPbY4MDJiTUQaZJFg KRopQLSoVJH1HxR5AAUnUOBiTR2GPoXbJCFpRRajWQKpXTXpCFZbvk9AFPCsVGNmWLA6ZPZkSJYpLRGt YTdoKYByDZZ2AAO6CRSeVQArIL0NIbHsLLSpJSr9AqAbTRJzMIFnnq7CXPQtTIMjRWL1AXRjTVHzCMHl XJerNDPdTWKaKTF6SHXfWZWoKZ1SYiWcZPFcWsN2DM QkWOGyKWQwxf7JgIExjRkilu0VAHpSMq3GzRcxWMX5UQtkWd0rxJEvHCKuFFXTZk5AiiMnALJuNKXOYX kwOKNvARl4ZdR7G2TcEoUuLPC8MwN7IZEjY3OrSof2G7CxG6R1ZwX5PCfsRVDpGiYpRqFiHJR9MsTsTM ScTKP3YMutG1N7CMI+GN7dGNo+Ju6Ki8CjqlE4lyKoIPsgVHd0IR6FRLXBQ5LPQc== ID Date Data Source [id number] 09/25/2020 05:29:41 PM EDT [facility] Name Value Range Interpretation Code Description Data Cinthia rce(s) Supporting Document(s) Nursing Note [facility] OSXRKe1pQoEXWeLc36/[place]DavHERtw9KdWJexCZo2ELctRLMuG7RkLLH0pG3uDQL2AInSSaFrRsOhMgYz lbm [file] S1eLNeGm4NXfT4WCAACfYsIR4ZQJn= ID Date Data Source [id number] 09/25/2020 05:05:31 PM EDT [facility] Name Value Range Interpretation Code Description Data Cinthia rce(s) Supporting Document(s) Care Plan [facility] AVHOJj4gPxQVXhOw12/DUYzwDBBnj5AyEWdnOSo1CIfpKYQeH3LeLCW7aO6hFSN4IJzBRpCwNoNjRsAy lbm [file] AUTO DAMAGE TRAINEE+Pp9BXYMgFGk5R7S6JAJrMGc8W0OJH7SHVWRhBKawLXmyEVQcJIl0W8Q8HBCoB9MUJ3Rtrzeovq8+ EL2VL35KSSAqJCy3C8A0sZTpE3U6uTmMyPR9HH6VYA6FhUx3vWKzdT0+HJ8CN3KGMnSsIYq3F3T6lXLb G2R0pQnVwVC5PK6QPH0OeFLbDRAzoyOxRh5jB9ZOPH oEGxQFZLQ1QK7BiOKnUB0MnFWZI3HaxSAeHm7zNCzvuYZysK1yAr1xEIksYY8DWeYWYUdPDYR3JC9VaE VtDQ5XfCOEV6YyzSStNa4yMMcayNMghr4+DZ0DNZNrZn8QNl6+WNfokhAjYrrNKqN6RUGfm7HjRQx1DM 2GTU6ooXcfEJC7Rr3RqWF1nKXlM6kFRW1GhXKsE81t vULoJKXcTc3EUeJ4rmWftQ5ZOY28hELxe6T7TQVqW0mzMTloi63rTKztZWtSBC4fFACAAIgyGWsdYGS4 UhPmjwsmMETiRn2KAsBuNQy4uX2utRD0DQN6LsgiyEBgKQdhOrJvWtMcJxY2kTpatkf7YKxwAC3iEClu czptZXRhLyc+HHvbSLIcXWHqYwrALFZaeE6vzhT4sf BuHFlrlFOsXy8vi4w5KmaeRj8xAo5oTEu9EwCaSuMdQWQyXs6btB06PHmeqdQmEr0HHfWyCNL7F2HoQh pSREY+NHxcSFxxdVe9xRFbTXTrNg4KGXJzONXiOYJbQXScOXNsTYJdPIIiFLSeTUZwUDKyPTDjLHJgAY AgICAgICAgICAgICAgICAgICAgICAgICAgICAgICAg YVVuVGIzLVQfOQGbZGEqSCPvGZUiVAEnPTHdUXWmJD2PLHBnPWMoXDZwDEDlKBWsXUXxKBBkGMUfYDZv ICAgICAgICAgICAgICAgICAgICAgICAgICAgICAgICAgICAgICAgICAgICAgICAgICAgICAgICAgICAg ZYQrFLCkOPXgDJZqJG2TTELlYQWiPTUcWLAnUENmQK AgICAgICAgICAgICAgICAgICAgICAgICAgICAgICAgICAgICAgICAgICAgICAgICAgICAgICAgICAgIC OfIWDqAMEeULGxUGYuNFWcABVeQVXzPE9HTSWvMZUmPRRuNPNjDLIyRUMjJVAfPDOtQGZxQVWzGIBqPY AgICAgICAgICAgICAgICAgICAgICAgICAgICAgICAg JRFjCVFiAHYmPBMyUGQvBGKjYXXhWXGiNKRrLOSpHZTmGG0VAFEzXFNnKTJxYQErHNRqGJCkXKRmOZCf ICAgICAgICAgICAgICAgICAgICAgICAgICAgICAgICAgICAgICAgICAgICAgICAgICAgICAgICAgICAg DTElYLTkBIIoQSFmPATuSB1POYEoRJXyZTNgAAJaZN AgICAgICAgICAgICAgICAgICAgICAgICAgICAgICAgICAgICAgICAgICAgICAgICAgICAgICAgICAgIC LaJWVuEOVnSIXwVZGhHNCuPYEvCCXqCAPiCF4PDVHwGEZfDUTnFJPoMEKrSHQwUBCfOYPxQMSsBTJaSD AgICAgICAgICAgICAgICAgICAgICAgICAgICAgICAg ZFEnAXCyNRLeEKEzKLZaRHFkFHZiLAEvDCFuEUScORSvBQOxRU6FCKSmHEQqGUDfJWFfCFUlNIUbPNIr ICAgICAgICAgICAgICAgICAgICAgICAgICAgICAgICAgICAgICAgICAgICAgICAgICAgICAgICAgICAg GVJcDFJnNPOpIFYlGXIwQDJgGZ5ZIWBtLWWeRDKoYX AgICAgICAgICAgICAgICAgICAgICAgICAgICAgICAgICAgICAgICAgICAgICAgICAgICAgICAgICAgIC WbTLKvCQKkXHXuGXLiHLCgMKOlSLElKQRoVEFpFK1XULNxHQJdVOYpNGBrODKiGNYiGUNxIJPxGULmDG AgICAgICAgICAgICAgICAgICAgICAgICAgICAgICAg ZNLoLSPaNEPnUHJjHDThSWMcDHFmCYXeHNLdAYHgGYBiUFWeWGRiDV6QVI16wLDyt4D0OKHfQD2kcat/ Pi7QAUajpaTjkLHdQE9FHrFdGT3cnh1WWrHzBF7ioh5VZLsGBsBlB9L9yARjHEMpGGHWMhSaF33mNHuq Wp36TXowBWGgJwBaWFg8Uk6IRbLnZ1kdFZViIhK4PF VdGmV4JMWgAnLtTSvrII0Jd1DaaKGtBAv+Te8TCQ9me8QvSMhlJmKyKI6qwh3EHVhXInPbJ1JlcwV0RS V2CFBiFr5URCDbFBArbFWtLJNjCKNQWgPzO3IcxC89UPAYFw7+DQvfxxOaVdiZXsM3TBVnd0HjOCj7LH 7QYCDcUEi5xINsS5NtOYGSgFDkCBO3AS5pnKfcd0Ip Yp0prIIkBTUENeTvuXC5ElWdLmJjVXZcCPzgZHJJDMuEJtJxI8Kuc2FcNgZ6ZEVjYlCyDDqxWTHhElI8 PD25jQxxVZ6HANFbXCGaXZ67YQF8TJHpMn2NQv5APbUzRN6rlq4ZYqshEZAmFeqQVmr3WNmcJG7IpTOz B6GoeKUml3lZPlUqU3BDNZS5BNJwAg4DGEWnEnRpGV XeQHxoEB6lHWQjCMBUtZyjyjW1HT7ASN1pixFlPU1KDjMjLk8tWd4YYjDkE0NnE3FlVAKbRXMTHRgfWV 1NKZkeYX7mMM8Fx1RYgPYzmS1ipw3ZDGMuFBMjXcvwvu6BWgzxE3R5mGngCJSrXsnxNGXOMDstKF8KDU VfYGM0BTEzIuSrUICWIlUwT57gQD3TT9Qik66xHvG3 DZDdKiXhQLrxAA00fSsghvPgrIBkuUseGP3CZs6+DQplbmRvYmoNCnhyZWYNCjAgMzANCjAwMDAwMDAw ESEeRuG9DiFxJy7HHJKuJFLbEWGgTdUiQVJlPRSjVCalXERmRWGsUbK8PGVoSSWpRN6LVbXjBXBxLfR3 GJZiXSJhNHQwsb6FSIJcABXdMHZ3NsDhMMGfVJHhJH mvJLEnSJGmPZc5BPPwMPVbUW4AEaAxCEVzEQWaDQOuGJHfGOZrkt1ZZJFsSXMiJvy9FjQqQYOxHVEvHU imOHMpHOElNTrzAZXnQANbDD8WOhWbXUReYNHpBeoiMWCxFMLhpq1IEVQbRTCxCXTcVFAlQTAeGZCdWA cgHGMuLAK7LAX9CVLuOPAuDO2TWeXfWPWaIQXdTkPw UJIuTKJzlb7WSPZbMZLuNGR4NmTtBNZjSNKrLXquPFYrERN5XaI7QCRpNKMlWP5ECyZhLWYwQBpaKFWp UOMmAUGbgv0DQKAkOEQoRBZcULWjPMRsAKOwGUcyEXMnMQG6UyKkJHLlDUEiJV1SDqJjREMuZEx9NqEe EAZdPWSjsk2OTTRsZUTtBSVcArKlEOOkUCVhKVstEG QiGUV3GXT7LRJpUTMhHN0PPtLaRLJaKtJyEHQiGJYaTVUfaq2LMJVyRJJfEPMoFvJsVHHeFAWqKKxrSI PqGVPxXdU6ELBgQHHiED4QUxWgRHHcFeY0LWZnVPAeAMDeqg7VGNPhRIHzAZG6SiZaTXStQWOlSHkwGB XcSNKlPZz1MVCtRCSiYL2LNsTkVGSqTtV2OAtsGWKf HWXsul0GLLSzNCHnHyG9HRXwOUYjYWPvOCwyTMSzNXTkOrQnWVReEAYuQQ3KRoPdBMztUYCVKcm4ZDlh J2a5CTAeJX7FZ8Mxg5PeNealFOZJWLqcOM9bhkMgJJEjMm3QH7dWLiqqOxDaGLN0HXspSqPsTbggIpA2 QSCqT3PpQYBiZVHvTI5sGRWkLSU5GCA3NsGvDRTwB8 KiOGQ4SSEtZIUpQFNoAVSmOoLjGW1NMs0CKlI5DPG5qKRkXy7XXaF6VmlATdAtZB2ULEw= ID Date Data Source [id number] 09/25/2020 02:49:18 PM EDT [facility] Name Value Range Interpretation Code Description Data Cinthia rce(s) Supporting Document(s) ED Triage Notes [facility] KGGXTc2dDfFTYcBo09/LTHsmTZWsi6NlEKprRXc7XNxgGEDpG7OgGAF3rI3pIPK3MTeWTjYgLfTuZbXg lbm [file] BxmExsMQSZQey8ZCUBKtBrWU4RWVw= ID Date Data Source [id number] 09/25/2020 05:14:00 AM EDT [facility] Name Value Range Interpretation Code Description Data Cinthia rce(s) Supporting Document(s) SARS coronavirus 2 RNA [Presence] in Res piratory specimen by JAVON with probe detection NEGATIVE [facility] This lab was ordered by [facility] a nd reported by [facility]. ID Date Data Source [id number] 08/14/2020 12:21:00 AM EDT [facility] Name Value Range Interpretation Code Description Data Cinthia rce(s) Supporting Document(s) SARS coronavirus 2 RNA [Presence] in Res piratory specimen by JAVON with probe detection NEGATIVE [facility] This lab was ordered by [facility] a nd reported by [facility]. ID Date Data Source [id number] 07/12/2020 03:18:00 PM EDT [facility] Name Value Range Interpretation Code Description Data Cinthia rce(s) Supporting Document(s) SARS coronavirus 2 RNA [Presence] in Res piratory specimen by JAVON with probe detection NEGATIVE [facility] This lab was ordered by [facility] a nd reported by [facility]. ID Date Data Source [id number] 06/23/2020 10:30:00 AM EST [facility] Name Value Range Interpretation Code Description Data Cinthia rce(s) Supporting Document(s) SARS coronavirus 2 RNA [Presence] in Res piratory specimen by JAVON with probe detection NEGATIVE [facility] This lab was ordered by [facility] a nd reported by [facility]. ID Date Data Source [id number] 05/13/2020 04:00:00 PM EST [facility] Name Value Range Interpretation Code Description Data Cinthia rce(s) Supporting Document(s) SARS coronavirus 2 RNA [Presence] in Res piratory specimen by JAVON with probe detection NEGATIVE [facility] This lab was ordered by [facility] a nd reported by [facility]. Procedure Social History Code Duration Value Status Description Data Source(s ) Smoking 02/18/2021 12:00:00 AM EDT Unknown if ever smoked comp leted Unknown if ever smoked [facility] ([facility]) Smoking 10/31/2020 12:00:00 AM EDT Unknown if ever smoked comp leted Unknown if ever smoked [facility] ([facility]) Smoking 10/16/2020 12:00:00 AM EDT Unknown if ever smoked comp leted Unknown if ever smoked [facility] ([facility]) Alcohol intake 09/25/2020 12:00:00 AM EDT Current drinker of al cohol (finding) completed Current drinker of alcohol (finding) [facility] Tobacco use and exposure 09/25/2020 12:00:00 AM EDT Never used co mpleted Never used [facility] Cigarette pack-years 09/25/2020 12:00:00 AM EDT UNK completed [facility] Cigarettes smoked current (pack per day) - Reported 09/26/19 12:00:00 AM EDT UNK completed [facility] Smoking 09/25/2020 12:00:00 AM EDT Current every day smoker co mpleted Current every day smoker [facility] Smoking 09/09/2020 12:00:00 AM EDT Unknown if ever smoked comp leted Unknown if ever smoked [facility] ([facility]) Smoking 09/03/2020 12:00:00 AM EDT Unknown if ever smoked comp leted Unknown if ever smoked [facility] ([facility]) Smoking 08/20/2020 12:00:00 AM EDT Unknown if ever smoked comp leted Unknown if ever smoked [facility] ([facility]) Smoking 08/07/2020 12:00:00 AM EDT Unknown if ever smoked comp leted Unknown if ever smoked [facility] ([facility] Smoking 07/24/2020 12:00:00 AM EDT Unknown if ever smoked comp leted Unknown if ever smoked [facility] ([facility]) Smoking 07/16/2020 12:00:00 AM EDT Unknown if ever smoked comp leted Unknown if ever smoked [facility] ([facility]) Smoking 07/10/2020 12:00:00 AM EDT Unknown if ever smoked comp leted Unknown if ever smoked [facility] ([facility]) Smoking 07/02/2020 12:00:00 AM EST Current Smoker completed [facility] Sm[facility] ([facility]) Smoking 07/02/2020 12:00:00 AM EST Current Smoker completed Curre nt Smoker [facility] ([facility]) Smoking 07/02/2020 12:00:00 AM EST Current Smoker completed Curre nt Smoker [facility]1 ([facility]) Smoking 06/24/2020 12:00:00 AM EST Unknown if ever smoked comp leted Unknown if ever smoked [facility] ([facility]) Smoking 06/16/2020 12:00:00 AM EST Unknown if ever smoked comp leted Unknown if ever smoked [facility] ([facility]) Smoking 06/11/2020 12:00:00 AM EST Unknown if ever smoked comp leted Unknown if ever smoked [facility] ([facility]) Smoking 05/28/2020 12:00:00 AM EST Unknown if ever smoked comp leted Unknown if ever smoked [facility] ([facility]) Smoking 05/26/2020 12:00:00 AM EST Unknown if ever smoked comp leted Unknown if ever smoked [facility] ([facility]) Smoking 05/21/2020 12:00:00 AM EST Unknown if ever smoked comp leted Unknown if ever smoked [facility] ([facility]) Smoking 05/02/2020 12:00:00 AM EST Unknown if ever smoked comp leted Unknown if ever smoked [facility] ([facility]) Smoking 04/10/2020 12:00:00 AM EST Unknown if ever smoked comp leted Unknown if ever smoked [facility] ([facility]) Smoking 03/28/2020 12:00:00 AM EST Unknown if ever smoked comp leted Unknown if ever smoked [facility] ([facility]) Smoking 03/25/2020 12:00:00 AM EST Unknown if ever smoked comp leted Unknown if ever smoked [facility] ([facility]) Smoking 03/04/2020 12:00:00 AM EST Unknown if ever smoked comp leted Unknown if ever smoked [facility] ([facility]) Smoking 02/19/2020 12:00:00 AM EDT Unknown if ever smoked comp leted Unknown if ever smoked [facility] ([facility]) Smoking 02/05/2020 12:00:00 AM EDT Unknown if ever smoked comp leted Unknown if ever smoked [facility] ([facility]) Smoking 02/04/2020 12:00:00 AM EDT Unknown if ever smoked comp leted Unknown if ever smoked [facility] ([facility]) Smoking 01/18/2020 12:00:00 AM EDT Unknown if ever smoked comp leted Unknown if ever smoked [facility] ([facility]) Vital Signs ID Date Data Source UNK Name Value Range Interpretation Code Description Data Source(s) Body height 72.00 in Normal (applies to non-numeric resu lts) 72.00 in [facility] ([facility]) Body weight Measured 155.00 lbs Normal (applies to n on-numeric results) 155.00 lbs [facility] ([facility]) Body mass index (BMI) [Ratio] 21.02 kg/m2 No rmal (applies to non-numeric results) 21.02 kg/m2 [facility] ([facility]) Systolic blood pressure 121 mm[Hg] Normal (applies t o non-numeric results) 121 mm[Hg] [facility] ([facility]) Diastolic blood pressure 82 mm[Hg] Normal (applies to non-numeric results) 82 mm[Hg] [facility] ([facility]) Body height --lying 84 min Normal (applies to non-nume ami results) 84 min [facility] ([facility]) Respiratory rate 16 min Normal (applies to non-numeric results) 16 min [facility] ([facility]) Systolic blood pressure 120 mm[Hg] 120 mm[Hg] [facility] Diastolic blood pressure 79 mm[Hg] 79 mm[Hg] [facility] Heart rate 67 /min 67 /min [facility] Body temperature 36.[address] [facility] Respiratory rate 16 /min 16 /min [facility] Oxygen saturation in Arterial blood by Pulse oximetry 99 % 99 % [facility] Body height 185.4 cm 185.4 cm [facility] Body weight 69.31 kg 69.31 kg [facility] Body mass index (BMI) [Ratio] 20.16 kg/m2 20.16 kg/m2 [facility] Body height 0.00 in Normal (applies to non-numeric resu lts) 0.00 in [facility] ([facility]) Body weight Measured 0.00 lbs Normal (applies to n on-numeric results) 0.00 lbs [facility] ([facility]) Body mass index (BMI) [Ratio] 0.00 kg/m2 No rmal (applies to non-numeric results) 0.00 kg/m2 [facility] ([facility]) Systolic blood pressure 0 mm[Hg] Normal (applies t o non-numeric results) 0 mm[Hg] [facility] ([facility]) Diastolic blood pressure 0 mm[Hg] Normal (applies to non-numeric results) 0 mm[Hg] [facility] ([facility]) Body height 0.00 in Normal (applies to non-numeric resu lts) 0.00 in [facility] ([facility]) Body weight Measured 0.00 lbs Normal (applies to n on-numeric results) 0.00 lbs [facility] ([facility]) Body mass index (BMI) [Ratio] 0.00 kg/m2 No rmal (applies to non-numeric results) 0.00 kg/m2 [facility] ([facility]) Systolic blood pressure 0 mm[Hg] Normal (applies t o non-numeric results) 0 mm[Hg] [facility] ([facility]) Diastolic blood pressure 0 mm[Hg] Normal (applies to non-numeric results) 0 mm[Hg] [facility] ([facility]) Body height 0.00 in Normal (applies to non-numeric resu lts) 0.00 in [facility] ([facility]) Body weight Measured 0.00 lbs Normal (applies to n on-numeric results) 0.00 lbs [facility] ([facility]) Body mass index (BMI) [Ratio] 0.00 kg/m2 No rmal (applies to non-numeric results) 0.00 kg/m2 [facility] ([facility]) Systolic blood pressure 0 mm[Hg] Normal (applies t o non-numeric results) 0 mm[Hg] [facility] ([facility]) Diastolic blood pressure 0 mm[Hg] Normal (applies to non-numeric results) 0 mm[Hg] [facility] ([facility]) Diastolic blood pressure 0 mm[Hg] Normal (applies to non-numeric results) 0 mm[Hg] [facility] ([facility]) Body height 0.00 in Normal (applies to non-numeric resu lts) 0.00 in [facility] ([facility]) Systolic blood pressure 0 mm[Hg] Normal (applies t o non-numeric results) 0 mm[Hg] [facility] ([facility]) Body weight Measured 0.00 lbs Normal (applies to n on-numeric results) 0.00 lbs [facility] ([facility]) Body mass index (BMI) [Ratio] 0.00 kg/m2 No rmal (applies to non-numeric results) 0.00 kg/m2 [facility] ([facility]) Body height 0.00 in Normal (applies to non-numeric resu lts) 0.00 in [facility] ([facility]) Body weight Measured 0.00 lbs Normal (applies to n on-numeric results) 0.00 lbs [facility] ([facility]) Body mass index (BMI) [Ratio] 0.00 kg/m2 No rmal (applies to non-numeric results) 0.00 kg/m2 [facility] ([facility]) Systolic blood pressure 0 mm[Hg] Normal (applies t o non-numeric results) 0 mm[Hg] [facility] ([facility]) Diastolic blood pressure 0 mm[Hg] Normal (applies to non-numeric results) 0 mm[Hg] [facility] ([facility]) ID Date Data Source [id number] 11/20/2020 05:41:51 PM [facility] Name Value Range Interpretation Code Description Data Source(s) TRANSFER FROM [facility] ID Date Data Source [id number] 09/25/2020 04:45:57 AM [facility] Name Value Range Interpretation Code Description Data Source(s) TRANSFER FROM [facility]
[2021-02-22] MEDS ORDERED: PROP20TA72 PO (22:19)
== END 2021-02-22 22:52 | disposition home or self-care (01) ==
LOC: M ED 14:19
DX: F10.929 Alcohol use, unspecified with intoxication, unspecified (principal); R45.851 Suicidal ideations; F43.0 Acute stress reaction; Z79.899 Other long term (current) drug therapy; Z86.59 Personal history of other mental and behavioral disorders

== ENCOUNTER → 2021-02-27 | Outpatient (CLI) | payer MEDICARE ==
[~2021-02-27] MED LIST changes: +PROP20TA72 PO
[2021-02-27 13:31] LABS: BASO # 0.1 10^3/uL (0.0-0.2); BASO % 1.2 % (0.0-1.0); EOS # 0.3 10^3/uL (0.0-0.5); EOS % 3.9 % (0.0-3.0); HEMATOCRIT 41.9 % (42.0-52.0); HEMOGLOBIN 13.5 g/dl (13.5-17.5); LYMPH # 2.9 10^3/uL (1.5-5.0); LYMPH % 38.6 % (24.0-44.0); MEAN CORPUSCULAR HEMOGLOBIN 28.8 pg (27.0-33.0); MEAN CORPUSCULAR HGB CONC 32.2 g/dl (32.0-36.5); MEAN CORPUSCULAR VOLUME 89.3 fl (80.0-96.0); MONO # 0.9 10^3/uL (0.0-0.8); MONO % 11.3 % (2.0-8.0); NEUTROPHILS # 3.4 10^3/uL (1.5-8.5); NEUTROPHILS % 44.6 % (36.0-66.0); PLATELET COUNT, AUTOMATED 166 10^3/uL (150-450); RED BLOOD COUNT 4.69 10^6/uL (4.30-6.10); WHITE BLOOD COUNT 7.5 10^3/uL (4.0-10.0)
[2021-02-27 13:58] LABS: ALBUMIN 3.7 GM/DL (3.2-5.2); ALT/SGPT 20 U/L (12-78); BILIRUBIN,TOTAL 0.2 MG/DL (0.2-1.0); BLOOD UREA NITROGEN 6 MG/DL (7-18); CALCIUM LEVEL 9.1 MG/DL (8.5-10.1); CARBON DIOXIDE LEVEL 30 MEQ/L (21-32); CHLORIDE LEVEL 107 MEQ/L (98-107); CREATININE FOR GFR 0.75 MG/DL (0.70-1.30); GLOMERULAR FILTRATION RATE > 60.0 (>60); GLUCOSE, FASTING 83 MG/DL (70-100); POTASSIUM SERUM 4.8 MEQ/L (3.5-5.1); SODIUM LEVEL 141 MEQ/L (136-145); TOTAL PROTEIN 7.4 GM/DL (6.4-8.2)
[2021-02-27 14:13] LABS: HEMOGLOBIN A1c 5.6 %
[2021-02-27 14:45] LABS: HEPATITIS C VIRUS ABY INDEX < 0.0 INDEX (<0.8)
[2021-02-27 14:46] LABS: HIV 1&2 SCREEN CENTAUR NEGATIVE (NEGATIVE)
== END ==
LOC: M PLALAB 11:32
PROVIDERS: ATTEND Nurse Practitioner Family
DX: F20.89 Other schizophrenia (principal); R73.03 Prediabetes; Z11.3 Encounter for screening for infections with a predominantly sexual mode of transmission
CPT/HCPCS: 36415; 80053; 83036; 85025; 86780; 86803; 87389; G0463

== ENCOUNTER 2021-04-11 22:10 | Emergency (ER) | payer MEDICARE ==
[~2021-04-11 22:10] MED LIST changes: -LATU40TA PO; +LATU40TA2 PO; -LATU80TA PO; +LATU80TA2 PO
[2021-04-11 23:20] LABS: HEMATOCRIT 38.6 % (42.0-52.0); HEMOGLOBIN 12.8 g/dl (13.5-17.5); MEAN CORPUSCULAR HEMOGLOBIN 28.8 pg (27.0-33.0); MEAN CORPUSCULAR HGB CONC 33.2 g/dl (32.0-36.5); MEAN CORPUSCULAR VOLUME 86.7 fl (80.0-96.0); PLATELET COUNT, AUTOMATED 209 10^3/uL (150-450); RED BLOOD COUNT 4.45 10^6/uL (4.30-6.10); WHITE BLOOD COUNT 8.3 10^3/uL (4.0-10.0)
[2021-04-11 23:50] LABS: ACETAMINOPHEN LEVEL < 2.0 UG/ML (10.0-30.0); ALBUMIN 3.6 GM/DL (3.2-5.2); ALT/SGPT 16 U/L (12-78); BILIRUBIN,DIRECT 0.1 MG/DL (0.0-0.2); BILIRUBIN,TOTAL 0.2 MG/DL (0.2-1.0); BLOOD UREA NITROGEN 5 MG/DL (7-18); CALCIUM LEVEL 8.4 MG/DL (8.5-10.1); CARBON DIOXIDE LEVEL 23 MEQ/L (21-32); CHLORIDE LEVEL 104 MEQ/L (98-107); CREATININE FOR GFR 0.69 MG/DL (0.70-1.30); ETHYL ALCOHOL (ETHANOL) 0.258 % (0.000-0.010); GLOMERULAR FILTRATION RATE > 60.0 (>60); GLUCOSE, FASTING 78 MG/DL (70-100); POTASSIUM SERUM 3.5 MEQ/L (3.5-5.1); SALICYLATE LEVEL 4.9 MG/DL (5.0-30.0); SODIUM LEVEL 137 MEQ/L (136-145); THYROID STIMULATING HORMONE 0.136 uIU/ML (0.358-3.740); TOTAL PROTEIN 7.3 GM/DL (6.4-8.2)
[2021-04-11 23:59] LABS: RSV AMPLIFICATION NEGATIVE (NEGATIVE)
[2021-04-12 00:02] LABS: AMPHETAMINES LEVEL URINE NEGATIVE (NEGATIVE); BARBITURATES URINE NEGATIVE (NEGATIVE); BENZODIAZEPINES URINE NEGATIVE (NEGATIVE); CANNABINOIDS URINE NEGATIVE (NEGATIVE); COCAINE METABOLITE URINE POSITIVE (NEGATIVE); METHADONE URINE NEGATIVE (NEGATIVE); OPIATES URINE NEGATIVE (NEGATIVE); PHENCYCLIDINE URINE NEGATIVE (NEGATIVE)
[2021-04-12] MEDS ORDERED: BENZOIN TINCTURE 60ML BTL As Ordered ONE (03:09)
[2021-04-12 06:24] VITALS: BP 112/61
[2021-04-12] MEDS ORDERED: PROP40TA62 PO (07:26)
== END 2021-04-12 08:33 | disposition home or self-care (01) ==
LOC: M ED 22:10
DX: F14.10 Cocaine abuse, uncomplicated (principal); F17.210 Nicotine dependence, cigarettes, uncomplicated; Z79.899 Other long term (current) drug therapy

== ENCOUNTER 2021-04-25 12:28 | Emergency (ER) | payer MEDICARE ==
[~2021-04-25] VITALS: Ht 185.4 cm; Wt 68.1 kg
[~2021-04-25 12:28] MED LIST changes: +LATU40TA PO; -LATU40TA2 PO; +LATU80TA PO; -LATU80TA2 PO
[2021-04-25 13:43] LABS: HEMATOCRIT 42.4 % (42.0-52.0); HEMOGLOBIN 14.3 g/dl (13.5-17.5); MEAN CORPUSCULAR HGB CONC 33.7 g/dl (32.0-36.5); PLATELET COUNT, AUTOMATED 135 10^3/uL (150-450); RED BLOOD COUNT 4.93 10^6/uL (4.30-6.10); WHITE BLOOD COUNT 3.3 10^3/uL (4.0-10.0)
[2021-04-25 14:05] LABS: AMPHETAMINES LEVEL URINE NEGATIVE (NEGATIVE); BARBITURATES URINE NEGATIVE (NEGATIVE); BENZODIAZEPINES URINE NEGATIVE (NEGATIVE); CANNABINOIDS URINE NEGATIVE (NEGATIVE); COCAINE METABOLITE URINE NEGATIVE (NEGATIVE); METHADONE URINE NEGATIVE (NEGATIVE); OPIATES URINE NEGATIVE (NEGATIVE); PHENCYCLIDINE URINE NEGATIVE (NEGATIVE)
[2021-04-25 14:14] LABS: ACETAMINOPHEN LEVEL < 2.0 UG/ML (10.0-30.0); ALBUMIN 3.7 GM/DL (3.2-5.2); ALT/SGPT 36 U/L (12-78); BILIRUBIN,DIRECT 0.2 MG/DL (0.0-0.2); BILIRUBIN,TOTAL 0.4 MG/DL (0.2-1.0); BLOOD UREA NITROGEN 3 MG/DL (7-18); CALCIUM LEVEL 8.8 MG/DL (8.5-10.1); CARBON DIOXIDE LEVEL 28 MEQ/L (21-32); CHLORIDE LEVEL 101 MEQ/L (98-107); CREATININE FOR GFR 0.72 MG/DL (0.70-1.30); GLOMERULAR FILTRATION RATE > 60.0 (>60); GLUCOSE, FASTING 130 MG/DL (70-100); POTASSIUM SERUM 3.7 MEQ/L (3.5-5.1); SODIUM LEVEL 136 MEQ/L (136-145); THYROID STIMULATING HORMONE 0.188 uIU/ML (0.358-3.740); TOTAL PROTEIN 7.5 GM/DL (6.4-8.2)
[2021-04-25 14:19] LABS: RSV AMPLIFICATION NEGATIVE (NEGATIVE)
[2021-04-25 15:04] VITALS: BP 163/94
[2021-04-25] MEDS ORDERED: NICO14DI31 TOP (15:54)
[2021-04-25] MEDS ORDERED: VITMTA PO (15:54)
[2021-04-25] MEDS ORDERED: HOME MED LIST COMPLETE! XX SCH (15:55)
== END 2021-04-25 16:59 | disposition home or self-care (01) ==
LOC: M ED 12:28
DX: F25.9 Schizoaffective disorder, unspecified (principal); F10.229 Alcohol dependence with intoxication, unspecified; Y90.0 Blood alcohol level of less than 20 mg/100 ml; Z79.899 Other long term (current) drug therapy; F17.210 Nicotine dependence, cigarettes, uncomplicated

== ENCOUNTER 2021-06-21 15:30 | Inpatient (IN) | payer MEDICARE ==
[~2021-06-21] VITALS: Ht 185.4 cm; Wt 73.9 kg
[~2021-06-21 15:30] MED LIST changes: -LATU40TA PO; +LATU40TA2 PO; -LATU80TA PO; +LATU80TA2 PO; +NICO14DI31 TOP; +VITMTA PO
[2021-06-21 16:20] LABS: HEMOGLOBIN 13.7 g/dl (13.5-17.5); MEAN CORPUSCULAR HEMOGLOBIN 28.9 pg (27.0-33.0); MEAN CORPUSCULAR HGB CONC 35.1 g/dl (32.0-36.5); MEAN CORPUSCULAR VOLUME 82.3 fl (80.0-96.0); PLATELET COUNT, AUTOMATED 162 10^3/uL (150-450); RED BLOOD COUNT 4.74 10^6/uL (4.30-6.10); WHITE BLOOD COUNT 9.2 10^3/uL (4.0-10.0)
[2021-06-21 16:47] LABS: AMPHETAMINES LEVEL URINE NEGATIVE (NEGATIVE); BARBITURATES URINE NEGATIVE (NEGATIVE); BENZODIAZEPINES URINE NEGATIVE (NEGATIVE); CANNABINOIDS URINE NEGATIVE (NEGATIVE); COCAINE METABOLITE URINE NEGATIVE (NEGATIVE); METHADONE URINE NEGATIVE (NEGATIVE); OPIATES URINE NEGATIVE (NEGATIVE); PHENCYCLIDINE URINE NEGATIVE (NEGATIVE)
[2021-06-21 17:10] LABS: ACETAMINOPHEN LEVEL < 2.0 UG/ML (10.0-30.0); ALBUMIN 4.2 GM/DL (3.2-5.2); ALT/SGPT 50 U/L (12-78); BILIRUBIN,DIRECT 0.3 MG/DL (0.0-0.2); BLOOD UREA NITROGEN 5 MG/DL (7-18); CALCIUM LEVEL 9.2 MG/DL (8.5-10.1); CARBON DIOXIDE LEVEL 24 MEQ/L (21-32); CHLORIDE LEVEL 85 MEQ/L (98-107); CREATININE FOR GFR 0.81 MG/DL (0.70-1.30); ETHYL ALCOHOL (ETHANOL) 0.088 % (0.000-0.010); GLOMERULAR FILTRATION RATE > 60.0 (>60); GLUCOSE, FASTING 63 MG/DL (70-100); POTASSIUM SERUM 4.6 MEQ/L (3.5-5.1); SALICYLATE LEVEL 5.5 MG/DL (5.0-30.0); SODIUM LEVEL 121 MEQ/L (136-145); THYROID STIMULATING HORMONE 0.177 uIU/ML (0.358-3.740); TOTAL PROTEIN 7.9 GM/DL (6.4-8.2)
[2021-06-21 17:33] LABS: RSV AMPLIFICATION NEGATIVE (NEGATIVE)
[2021-06-21 17:36] LABS: OSMOLALITY SERUM 274 MOSM/KG (275-295)
[2021-06-21 17:37] LABS: FREE T4 1.44 NG/DL (0.76-1.46)
[2021-06-21 17:48] LABS: CREATININE,RANDOM URINE 49.1 MG/DL
[2021-06-21] MEDS ORDERED: NS 1,000 ML IV SCH (18:20)
[2021-06-21] MEDS: MULTIVITAMINS/MINERALS THERAP 1 TAB PO SCH (18:25)
[2021-06-21] MEDS: FOLIC ACID 1 MG TAB PO SCH (18:25)
[2021-06-21] MEDS: THIAMINE 100 MG TAB PO SCH (18:30)
[2021-06-21] MEDS ORDERED: GABA-282 PO (18:35)
[2021-06-21] MEDS ORDERED: PALI1TAB4 PO (18:35)
[2021-06-21] MEDS ORDERED: HOME MED LIST COMPLETE! XX SCH (18:45)
[2021-06-21 19:56] LABS: BLOOD UREA NITROGEN 7 MG/DL (7-18); CALCIUM LEVEL 9.4 MG/DL (8.5-10.1); CARBON DIOXIDE LEVEL 23 MEQ/L (21-32); CHLORIDE LEVEL 90 MEQ/L (98-107); CREATININE FOR GFR 0.71 MG/DL (0.70-1.30); GLOMERULAR FILTRATION RATE > 60.0 (>60); GLUCOSE, FASTING 76 MG/DL (70-100); POTASSIUM SERUM 4.3 MEQ/L (3.5-5.1); SODIUM LEVEL 125 MEQ/L (136-145)
[2021-06-21] MEDS ORDERED: LORazepam 0.5 MG TAB PO PRN (20:55)
[2021-06-21] MEDS ORDERED: RAMELTEON 8 MG TAB (ROZEREM) PO PRN (20:55)
[2021-06-21] MEDS: LORazepam 2 MG TAB PO PRN (21:35)
[2021-06-21 22:59] LABS: CK-MB VALUE MASS 4.5 NG/ML (<3.6); MB/CK RELATIVE INDEX 0.88 (< OR =4)
[2021-06-21 23:08] LABS: BLOOD UREA NITROGEN 7 MG/DL (7-18); CARBON DIOXIDE LEVEL 28 MEQ/L (21-32); CHLORIDE LEVEL 91 MEQ/L (98-107); CREATININE FOR GFR 0.77 MG/DL (0.70-1.30); GLOMERULAR FILTRATION RATE > 60.0 (>60); GLUCOSE, FASTING 91 MG/DL (70-100); POTASSIUM SERUM 3.9 MEQ/L (3.5-5.1); SODIUM LEVEL 129 MEQ/L (136-145)
[2021-06-22] VITALS: BP 120/75
[2021-06-22 04:00] VITALS: BP 121/84
[2021-06-22 05:40] LABS: HEMATOCRIT 43.2 % (42.0-52.0); HEMOGLOBIN 14.8 g/dl (13.5-17.5); MEAN CORPUSCULAR HEMOGLOBIN 28.7 pg (27.0-33.0); MEAN CORPUSCULAR HGB CONC 34.3 g/dl (32.0-36.5); MEAN CORPUSCULAR VOLUME 83.7 fl (80.0-96.0); PLATELET COUNT, AUTOMATED 163 10^3/uL (150-450); RED BLOOD COUNT 5.16 10^6/uL (4.30-6.10); WHITE BLOOD COUNT 5.4 10^3/uL (4.0-10.0)
[2021-06-22 06:00] LABS: BLOOD UREA NITROGEN 8 MG/DL (7-18); CARBON DIOXIDE LEVEL 27 MEQ/L (21-32); CHLORIDE LEVEL 95 MEQ/L (98-107); GLOMERULAR FILTRATION RATE > 60.0 (>60); GLUCOSE, FASTING 71 MG/DL (70-100); POTASSIUM SERUM 4.4 MEQ/L (3.5-5.1); SODIUM LEVEL 131 MEQ/L (136-145)
[2021-06-22] MEDS: D5W 1,000 ML IV SCH (07:30)
[2021-06-22 08:00] VITALS: BP 135/83
[2021-06-22] MEDS: FOLIC ACID 1 MG TAB PO SCH (08:41)
[2021-06-22] MEDS: MULTIVITAMINS/MINERALS THERAP 1 TAB PO SCH (08:41)
[2021-06-22] MEDS: THIAMINE 100 MG TAB PO SCH ×2 (08:42→20:18)
[2021-06-22 09:30] LABS: BLOOD UREA NITROGEN 9 MG/DL (7-18); CALCIUM LEVEL 9.3 MG/DL (8.5-10.1); CARBON DIOXIDE LEVEL 26 MEQ/L (21-32); CHLORIDE LEVEL 95 MEQ/L (98-107); CREATININE FOR GFR 0.83 MG/DL (0.70-1.30); GLOMERULAR FILTRATION RATE > 60.0 (>60); GLUCOSE, FASTING 79 MG/DL (70-100); SODIUM LEVEL 131 MEQ/L (136-145)
[2021-06-22 12:00] VITALS: BP 118/84
[2021-06-22] MEDS: LORazepam 2 MG TAB PO PRN ×2 (12:10→20:18)
[2021-06-22 13:46] LABS: BLOOD UREA NITROGEN 11 MG/DL (7-18); CALCIUM LEVEL 9.1 MG/DL (8.5-10.1); CARBON DIOXIDE LEVEL 29 MEQ/L (21-32); CHLORIDE LEVEL 96 MEQ/L (98-107); CREATININE FOR GFR 0.85 MG/DL (0.70-1.30); GLOMERULAR FILTRATION RATE > 60.0 (>60); GLUCOSE, FASTING 110 MG/DL (70-100); POTASSIUM SERUM 3.6 MEQ/L (3.5-5.1); SODIUM LEVEL 130 MEQ/L (136-145)
[2021-06-22 16:00] VITALS: BP 119/79
[2021-06-22 17:36] LABS: BLOOD UREA NITROGEN 13 MG/DL (7-18); CARBON DIOXIDE LEVEL 29 MEQ/L (21-32); CHLORIDE LEVEL 98 MEQ/L (98-107); CREATININE FOR GFR 0.96 MG/DL (0.70-1.30); GLOMERULAR FILTRATION RATE > 60.0 (>60); GLUCOSE, FASTING 118 MG/DL (70-100); POTASSIUM SERUM 3.6 MEQ/L (3.5-5.1); SODIUM LEVEL 131 MEQ/L (136-145)
[2021-06-22 20:26] VITALS: BP 126/81
[2021-06-23] VITALS (8 sets, daily range): BP systolic 108–126; BP diastolic 63–85
[2021-06-23] MEDS: D5W 1,000 ML IV SCH (03:27)
[2021-06-23] MEDS: LORazepam 2 MG TAB PO PRN ×3 (04:42→20:23)
[2021-06-23 05:34] LABS: HEMATOCRIT 41.4 % (42.0-52.0); MEAN CORPUSCULAR HGB CONC 33.8 g/dl (32.0-36.5); MEAN CORPUSCULAR VOLUME 85.9 fl (80.0-96.0); PLATELET COUNT, AUTOMATED 116 10^3/uL (150-450); RED BLOOD COUNT 4.82 10^6/uL (4.30-6.10); WHITE BLOOD COUNT 5.4 10^3/uL (4.0-10.0)
[2021-06-23] MEDS ORDERED: SODIUM CHLORIDE 1 GM TAB PO SCH (08:00)
[2021-06-23] MEDS: FOLIC ACID 1 MG TAB PO SCH (08:48)
[2021-06-23] MEDS: MULTIVITAMINS/MINERALS THERAP 1 TAB PO SCH (08:49)
[2021-06-23] MEDS: THIAMINE 100 MG TAB PO SCH ×2 (08:49→20:23)
[2021-06-23] MEDS ORDERED: TOLVAPTAN 7.5 MG HALF-TAB PO ONE (09:00)
[2021-06-23 12:53] LABS: BLOOD UREA NITROGEN 8 MG/DL (7-18); CARBON DIOXIDE LEVEL 27 MEQ/L (21-32); CHLORIDE LEVEL 104 MEQ/L (98-107); GLOMERULAR FILTRATION RATE > 60.0 (>60); GLUCOSE, FASTING 138 MG/DL (70-100); POTASSIUM SERUM 3.4 MEQ/L (3.5-5.1); SODIUM LEVEL 135 MEQ/L (136-145)
[2021-06-23] MEDS ORDERED: POTASSIUM CHLORIDE 10MEQ SR TABLET PO ONE (13:15)
[2021-06-23 16:37] LABS: BLOOD UREA NITROGEN 11 MG/DL (7-18); CALCIUM LEVEL 8.8 MG/DL (8.5-10.1); CARBON DIOXIDE LEVEL 31 MEQ/L (21-32); CHLORIDE LEVEL 106 MEQ/L (98-107); CREATININE FOR GFR 0.87 MG/DL (0.70-1.30); GLOMERULAR FILTRATION RATE > 60.0 (>60); GLUCOSE, FASTING 81 MG/DL (70-100); POTASSIUM SERUM 3.8 MEQ/L (3.5-5.1); SODIUM LEVEL 142 MEQ/L (136-145)
[2021-06-23 20:19] LABS: BLOOD UREA NITROGEN 10 MG/DL (7-18); CALCIUM LEVEL 8.5 MG/DL (8.5-10.1); CARBON DIOXIDE LEVEL 27 MEQ/L (21-32); CHLORIDE LEVEL 108 MEQ/L (98-107); CREATININE FOR GFR 0.84 MG/DL (0.70-1.30); GLOMERULAR FILTRATION RATE > 60.0 (>60); GLUCOSE, FASTING 112 MG/DL (70-100); POTASSIUM SERUM 3.9 MEQ/L (3.5-5.1); SODIUM LEVEL 140 MEQ/L (136-145)
[2021-06-24 01:13] LABS: BLOOD UREA NITROGEN 9 MG/DL (7-18); CALCIUM LEVEL 8.5 MG/DL (8.5-10.1); CARBON DIOXIDE LEVEL 30 MEQ/L (21-32); CHLORIDE LEVEL 106 MEQ/L (98-107); CREATININE FOR GFR 0.87 MG/DL (0.70-1.30); GLOMERULAR FILTRATION RATE > 60.0 (>60); GLUCOSE, FASTING 140 MG/DL (70-100); POTASSIUM SERUM 3.7 MEQ/L (3.5-5.1); SODIUM LEVEL 138 MEQ/L (136-145)
[2021-06-24 04:00] VITALS: BP 125/77
[2021-06-24] MEDS ORDERED: LORA2TA PO (05:12)
[2021-06-24] MEDS ORDERED: THIA100TA PO (05:12)
[2021-06-24] MEDS ORDERED: FOLI1TAB11 PO (05:12)
[2021-06-24] MEDS ORDERED: RAME8TAB2 PO (05:12)
[2021-06-24 05:23] LABS: BLOOD UREA NITROGEN 9 MG/DL (7-18); CALCIUM LEVEL 8.4 MG/DL (8.5-10.1); CARBON DIOXIDE LEVEL 31 MEQ/L (21-32); CHLORIDE LEVEL 108 MEQ/L (98-107); CREATININE FOR GFR 0.89 MG/DL (0.70-1.30); GLOMERULAR FILTRATION RATE > 60.0 (>60); GLUCOSE, FASTING 103 MG/DL (70-100); POTASSIUM SERUM 4.1 MEQ/L (3.5-5.1); SODIUM LEVEL 141 MEQ/L (136-145)
[2021-06-24 08:00] VITALS: BP 109/71
[2021-06-24] MEDS: FOLIC ACID 1 MG TAB PO SCH (08:28)
[2021-06-24] MEDS: MULTIVITAMINS/MINERALS THERAP 1 TAB PO SCH (08:28)
[2021-06-24] MEDS: THIAMINE 100 MG TAB PO SCH (08:28)
== END 2021-06-24 15:53 | DRG 641 ==
LOC: M ED 15:30 → M ED INP 18:18 → ENRESERV 19:15 → M PCU 20:18
PROVIDERS: ADMIT Internal Medicine; ATTEND General Practice
DX: E87.1 Hypo-osmolality and hyponatremia (principal); R45.851 Suicidal ideations; F20.0 Paranoid schizophrenia; F10.188 Alcohol abuse with other alcohol-induced disorder; F17.200 Nicotine dependence, unspecified, uncomplicated; F28 Other psychotic disorder not due to a substance or known physiological condition; R63.1 Polydipsia; Z20.822 Contact with and (suspected) exposure to COVID-19; Z91.14 Patient's other noncompliance with medication regimen; Z79.899 Other long term (current) drug therapy

== ENCOUNTER 2021-06-24 14:29 | Inpatient (IN) | payer MEDICARE ==
[~2021-06-24] VITALS: Ht 185.4 cm; Wt 69.8 kg
[2021-06-24] MEDS: NICOTINE 14 MG/24 HR TRANSDERMAL TD SCH (09:00)
[~2021-06-24 14:29] MED LIST changes: +FOLI1TAB11 PO; +GABA-282 PO; +LORA2TA PO; +RAME8TAB2 PO; +THIA100TA PO
[2021-06-24] MEDS ORDERED: traZODone 50 MG TAB PO PRN (14:55)
[2021-06-24] MEDS ORDERED: ACETAMINOPHEN TAB 650MG DOSE (2X325MG) PO PRN (14:55)
[2021-06-24] MEDS ORDERED: GABAPENTIN 400MG CAP PO PRN (14:55)
[2021-06-24] MEDS ORDERED: OLANZapine ORAL DISINTEGRATING TAB 5MG PO PRN (14:55)
[2021-06-24] MEDS ORDERED: LORazepam 2 MG TAB PO PRN (14:55)
[2021-06-24] MEDS ORDERED: MOM 30ML SUSPENSION UDC PO PRN (14:55)
[2021-06-24 15:32] VITALS: BP 129/81
[2021-06-24] MEDS ORDERED: HOME MED LIST COMPLETE! XX SCH (16:55)
[2021-06-24 19:03] VITALS: BP 133/78
[2021-06-24] MEDS: QUEtiapine FUMARATE 200 MG TAB PO SCH (21:00)
[2021-06-24] MEDS: PALIPERIDONE 3 MG ER TAB (INVEGA) PO SCH (21:30)
[2021-06-24] MEDS: THIAMINE 100 MG TAB PO SCH (21:30)
[2021-06-25 06:37] VITALS: BP 120/55
[2021-06-25] MEDS: PALIPERIDONE 3 MG ER TAB (INVEGA) PO SCH ×2 (09:00→12:45)
[2021-06-25] MEDS: MULTIVITAMINS/MINERALS THERAP 1 TAB PO SCH ×2 (09:00→12:46)
[2021-06-25] MEDS: NICOTINE 14 MG/24 HR TRANSDERMAL TD SCH (09:00)
[2021-06-25] MEDS: THIAMINE 100 MG TAB PO SCH ×3 (09:00→22:36)
[2021-06-25] MEDS: FOLIC ACID 1 MG TAB PO SCH ×2 (09:00→12:44)
[2021-06-25 17:58] LABS: BLOOD UREA NITROGEN 13 MG/DL (7-18); CALCIUM LEVEL 9.3 MG/DL (8.5-10.1); CARBON DIOXIDE LEVEL 30 MEQ/L (21-32); CHLORIDE LEVEL 107 MEQ/L (98-107); CREATININE FOR GFR 0.94 MG/DL (0.70-1.30); GLOMERULAR FILTRATION RATE > 60.0 (>60); GLUCOSE, FASTING 80 MG/DL (70-100); POTASSIUM SERUM 4.4 MEQ/L (3.5-5.1); SODIUM LEVEL 140 MEQ/L (136-145)
[2021-06-25 18:49] LABS: HEPATITIS B CORE ANTIBODY IGM NEGATIVE (NEGATIVE); HEPATITIS B SURFACE ANTIGEN NEGATIVE (NEGATIVE); HIV 1&2 SCREEN CENTAUR NEGATIVE (NEGATIVE)
[2021-06-25 19:14] VITALS: BP 118/74
[2021-06-25 19:30] VITALS: BP 118/74
[2021-06-25] MEDS ORDERED: PALIPERIDONE 3 MG ER TAB (INVEGA) PO SCH (21:00)
[2021-06-25] MEDS: QUEtiapine FUMARATE 200 MG TAB PO SCH (22:35)
[2021-06-26 06:16] VITALS: BP 116/69
[2021-06-26 06:18] VITALS: BP 116/69
[2021-06-26] MEDS: NICOTINE 14 MG/24 HR TRANSDERMAL TD SCH (08:14)
[2021-06-26 09:32] VITALS: BP 116/69
[2021-06-26] MEDS ORDERED: PALI1TAB3 PO (10:27)
[2021-06-26] MEDS ORDERED: QUET200T2 PO (10:27)
== END 2021-06-26 14:00 | disposition home or self-care (01) | DRG 885 ==
LOC: M PSY 16:00
PROVIDERS: ADMIT Student in an Organized Health Care Education/Training Program; ATTEND Student in an Organized Health Care Education/Training Program
DX: F28 Other psychotic disorder not due to a substance or known physiological condition (principal); R45.851 Suicidal ideations; F19.159 Other psychoactive substance abuse with psychoactive substance-induced psychotic disorder, unspecified; Z91.14 Patient's other noncompliance with medication regimen; F17.200 Nicotine dependence, unspecified, uncomplicated; Z79.899 Other long term (current) drug therapy; F20.0 Paranoid schizophrenia; F10.10 Alcohol abuse, uncomplicated

== ENCOUNTER 2023-06-29 00:48 | Inpatient (IN) | payer MEDICARE, OTHER ==
[~2023-06-29] VITALS: Ht 185.4 cm; Wt 93.5 kg
[~2023-06-29 00:48] MED LIST changes: -GABA-283 PO; +GABA-284 PO
[2023-06-29 01:46] LABS: HEMATOCRIT 35.7 % (42.0-52.0); HEMOGLOBIN 12.9 g/dl (13.5-17.5); MEAN CORPUSCULAR HEMOGLOBIN 28.1 pg (27.0-33.0); MEAN CORPUSCULAR HGB CONC 36.1 g/dl (32.0-36.5); MEAN CORPUSCULAR VOLUME 77.8 fl (80.0-96.0); PLATELET COUNT, AUTOMATED 227 10^3/uL (150-450); RED BLOOD COUNT 4.59 10^6/uL (4.30-6.10); WHITE BLOOD COUNT 9.1 10^3/uL (4.0-10.0)
[2023-06-29 02:55] LABS: ALBUMIN 3.8 G/DL (3.2-5.2); ALKALINE PHOSPHATASE 90 U/L (46-116); ALT/SGPT 28 U/L (7.0-40); AST/SGOT 43 U/L (<34); BILIRUBIN,DIRECT 0.3 MG/DL (<0.4); BILIRUBIN,TOTAL 0.9 MG/DL (0.3-1.2); BLOOD UREA NITROGEN < 5 MG/DL (9-23); CALCIUM LEVEL 8.3 MG/DL (8.5-10.1); CARBON DIOXIDE LEVEL 24 MMOL/L (20-31); CHLORIDE LEVEL 86 MMOL/L (98-107); CREATININE FOR GFR 0.59 MG/DL (0.70-1.30); ETHYL ALCOHOL (ETHANOL) 0.227 % (0.000-0.010); GLOMERULAR FILTRATION RATE > 60.0 (>60); GLUCOSE, FASTING 107 MG/DL (60-100); POTASSIUM SERUM 3.5 MMOL/L (3.5-5.1); SALICYLATE LEVEL < 3.0 MG/DL (<30); SODIUM LEVEL 120 MMOL/L (136-145); THYROID STIMULATING HORMONE 0.317 uIU/ML (0.55-4.78); TOTAL PROTEIN 6.8 G/DL (5.7-8.2)
[2023-06-29 04:38] LABS: HIV 1&2 SCREEN NEGATIVE (NEGATIVE)
[2023-06-29 04:50] LABS: AMPHETAMINES LEVEL URINE NEGATIVE (NEGATIVE); BARBITURATES URINE NEGATIVE (NEGATIVE); BENZODIAZEPINES URINE NEGATIVE (NEGATIVE); CANNABINOIDS URINE NEGATIVE (NEGATIVE); METHADONE URINE NEGATIVE (NEGATIVE); OPIATES URINE NEGATIVE (NEGATIVE); PHENCYCLIDINE URINE NEGATIVE (NEGATIVE)
[2023-06-29 04:57] LABS: COCAINE METABOLITE URINE POSITIVE (NEGATIVE)
[2023-06-29] MEDS: NS 1,000 ML IV ONE ×2 (06:00)
[2023-06-29] MEDS ORDERED: QUET200T2 PO (06:10)
[2023-06-29] MEDS ORDERED: PALI1TAB3 PO (06:10)
[2023-06-29] MEDS ORDERED: THIA100T7 PO (06:10)
[2023-06-29] MEDS ORDERED: MULT-40 PO (06:10)
[2023-06-29] MEDS ORDERED: FOLI1TAB11 PO (06:10)
[2023-06-29] MEDS ORDERED: ROZE8TAB16 PO (06:10)
[2023-06-29] MEDS ORDERED: HOME MED LIST COMPLETE! XX SCH (06:15)
[2023-06-29 07:55] LABS: FREE T4 1.64 NG/DL (0.89-1.76)
[2023-06-29 08:21] LABS: CREATININE,RANDOM URINE 33.9 MG/DL
[2023-06-29 08:28] LABS: SODIUM,RANDOM URINE < 10 MMOL/L
[2023-06-29] MEDS ORDERED: MOM 30ML SUSPENSION UDC PO PRN (08:35)
[2023-06-29] MEDS ORDERED: ACETAMINOPHEN TAB 650MG DOSE (2X325MG) PO PRN (08:35)
[2023-06-29] MEDS: SODIUM CHLORIDE 3% 100 ML IV ONE (08:42)
[2023-06-29] MEDS: DOCUSATE SODIUM 100MG CAPSULE PO SCH (08:49)
[2023-06-29] MEDS: FOLIC ACID 1MG TAB PO SCH (08:49)
[2023-06-29] MEDS: THIAMINE 100 MG TAB PO SCH ×2 (08:49→15:10)
[2023-06-29] MEDS: MULTIVITAMINS/MINERALS THERAP 1 TAB PO SCH (08:49)
[2023-06-29] MEDS: ENOXAPARIN 40MG/0.4ML SYRINGE (J1650 PER 10MG) SC SCH (09:00)
[2023-06-29 10:38] LABS: CARBON DIOXIDE LEVEL 26 MMOL/L (20-31); CHLORIDE LEVEL 99 MMOL/L (98-107); POTASSIUM SERUM 3.5 MMOL/L (3.5-5.1); SODIUM LEVEL 134 MMOL/L (136-145)
[2023-06-29] MEDS ORDERED: DESMOPRESSIN ACETATE 2 MCG in NS 50 ML IV SCH (12:55)
[2023-06-29] MEDS: DESMOPRESSIN 4 MCG/ML INJ VIAL/AMP IV ONE ×2 (13:32→22:31)
[2023-06-29] MEDS: D5W 500 ML IV ONE (13:33)
[2023-06-29 15:02] LABS: POTASSIUM SERUM 3.7 MMOL/L (3.5-5.1)
[2023-06-29] MEDS: GABAPENTIN 300 MG CAP PO SCH (15:10)
[2023-06-29] MEDS: OXAZEPAM 15MG CAP PO SCH (15:10)
[2023-06-29 17:20] VITALS: BP 129/87; TEMP 97.9; O2SAT 97
[2023-06-29 17:21] VITALS: BP 129/87
[2023-06-29] MEDS: LORazepam 2 MG TAB PO PRN (18:11)
[2023-06-29 19:30] LABS: POTASSIUM SERUM 3.6 MMOL/L (3.5-5.1)
[2023-06-29] MEDS ORDERED: DESMOPRESSIN ACETATE 2 MCG in NS 50 ML IV ONE (19:55)
[2023-06-29] MEDS: D5W 1,000 ML IV ONE (20:41)
[2023-06-29 20:51] VITALS: BP 138/90; TEMP 98.1; O2SAT 99
[2023-06-29 21:00] VITALS: BP 138/90
[2023-06-29] MEDS: QUEtiapine FUMARATE 200 MG TAB PO SCH (22:31)
[2023-06-29] MEDS: PRAZOSIN 1 MG CAP PO SCH (22:31)
[2023-06-29] MEDS: PALIPERIDONE 6MG ER TAB (INVEGA) PO SCH (22:31)
[2023-06-29 23:06] LABS: POTASSIUM SERUM 3.6 MMOL/L (3.5-5.1)
[2023-06-30] VITALS (7 sets, daily range): BP systolic 103–149; BP diastolic 67–93; TEMP 97.2–97.7; O2SAT 97–99
[2023-06-30] MEDS: D5W 1,000 ML IV SCH ×2 (01:43→10:19)
[2023-06-30] MEDS: D5W 1,000 ML IV ONE ×3 (02:05→09:04)
[2023-06-30 03:08] LABS: POTASSIUM SERUM 3.1 MMOL/L (3.5-5.1)
[2023-06-30] MEDS: DESMOPRESSIN ACETATE 4 MCG in NS 50 ML IV ONE (05:37)
[2023-06-30] MEDS ORDERED: DESMOPRESSIN ACETATE 4 MCG in NS 50 ML IV ONE (05:55)
[2023-06-30] MEDS: D5W 2,000 ML IV ONE (06:25)
[2023-06-30 06:59] LABS: BLOOD UREA NITROGEN 7 MG/DL (9-23); CALCIUM LEVEL 7.9 MG/DL (8.5-10.1); CARBON DIOXIDE LEVEL 29 MMOL/L (20-31); CHLORIDE LEVEL 97 MMOL/L (98-107); CREATININE FOR GFR 0.71 MG/DL (0.70-1.30); GLOMERULAR FILTRATION RATE > 60.0 (>60); GLUCOSE, FASTING 108 MG/DL (60-100); SODIUM LEVEL 129 MMOL/L (136-145)
[2023-06-30] MEDS: POTASSIUM CHLORIDE 10MEQ SR TABLET PO SCH (09:02)
[2023-06-30 11:45] LABS: POTASSIUM SERUM 3.5 MMOL/L (3.5-5.1)
[2023-06-30 14:48] LABS: POTASSIUM SERUM 3.5 MMOL/L (3.5-5.1)
[2023-06-30 18:55] LABS: POTASSIUM SERUM 3.3 MMOL/L (3.5-5.1)
[2023-06-30 22:59] LABS: POTASSIUM SERUM 3.3 MMOL/L (3.5-5.1)
[2023-07-01 00:50] VITALS: BP 102/62; TEMP 97.2; O2SAT 98
[2023-07-01 05:14] VITALS: BP 119/77; TEMP 97.3; O2SAT 99
[2023-07-01 07:09] LABS: IRON (FE) 26 UG/DL (65-175)
[2023-07-01 07:10] LABS: PERCENT SATURATION 8.3 % (19.7-50.0); TOTAL IRON BINDING CAPACITY 313 UG/DL (250-425)
[2023-07-01 07:21] LABS: BLOOD UREA NITROGEN < 5 MG/DL (9-23); CALCIUM LEVEL 8.3 MG/DL (8.5-10.1); CARBON DIOXIDE LEVEL 27 MMOL/L (20-31); CHLORIDE LEVEL 94 MMOL/L (98-107); CREATININE FOR GFR 0.67 MG/DL (0.70-1.30); FERRITIN 176.1 NG/ML (10.5-307.3); GLOMERULAR FILTRATION RATE > 60.0 (>60); GLUCOSE, FASTING 121 MG/DL (60-100); SODIUM LEVEL 127 MMOL/L (136-145)
[2023-07-01] MEDS: POTASSIUM CHLORIDE 10MEQ SR TABLET PO SCH (08:29)
[2023-07-01 10:23] LABS: POTASSIUM SERUM 3.3 MMOL/L (3.5-5.1)
[2023-07-01] MEDS ORDERED: POTA-136 PO (12:30)
[2023-07-01] MEDS ORDERED: LORA2TA PO (12:30)
[2023-07-01] MEDS ORDERED: MINI1CAP PO (12:30)
[2023-07-01 14:25] VITALS: BP 123/83
[2023-07-01 14:26] LABS: POTASSIUM SERUM 4.1 MMOL/L (3.5-5.1)
== END 2023-07-01 16:14 | DRG 641 ==
LOC: M ED 00:48 → M ED INP 08:34 → ENRESERV 16:26 → M MSPAV 17:23
PROVIDERS: ADMIT Student in an Organized Health Care Education/Training Program; ATTEND Student in an Organized Health Care Education/Training Program
DX: E87.1 Hypo-osmolality and hyponatremia (principal); Z59.00 Homelessness unspecified; F25.0 Schizoaffective disorder, bipolar type; F10.229 Alcohol dependence with intoxication, unspecified; F17.210 Nicotine dependence, cigarettes, uncomplicated; F41.9 Anxiety disorder, unspecified; Z91.198 Patient's noncompliance with other medical treatment and regimen for other reason; T43.506A Underdosing of unspecified antipsychotics and neuroleptics, initial encounter; Z79.899 Other long term (current) drug therapy

== ENCOUNTER 2023-07-01 14:39 | Inpatient (IN) | payer MEDICARE ==
[~2023-07-01] VITALS: Ht 185.4 cm; Wt 98.8 kg
[~2023-07-01 14:39] MED LIST changes: +MULT-40 PO; +POTA-136 PO; +ROZE8TAB16 PO; +THIA100T7 PO
[2023-07-01] MEDS ORDERED: ACETAMINOPHEN TAB 650MG DOSE (2X325MG) PO PRN (14:50)
[2023-07-01] MEDS ORDERED: MAALOX 30 ML SUSP *UDC PO PRN (14:50)
[2023-07-01] MEDS ORDERED: MOM 30ML SUSPENSION UDC PO PRN (14:50)
[2023-07-01] MEDS ORDERED: IBUPROFEN 400MG TAB PO PRN (14:50)
[2023-07-01 16:15] VITALS: BP 126/76
[2023-07-01 16:22] VITALS: BP 129/73; TEMP 97.7; O2SAT 100
[2023-07-01] MEDS ORDERED: LORazepam 2 MG TAB PO PRN (17:20)
[2023-07-01] MEDS: THIAMINE 100 MG TAB PO SCH (21:15)
[2023-07-01] MEDS: traZODone 50 MG TAB PO PRN (21:15)
[2023-07-02 00:15] VITALS: BP 114/73
[2023-07-02] MEDS: diphenhydrAMINE 25MG CAP PO PRN (02:12)
[2023-07-02 06:32] VITALS: BP 120/76; TEMP 98.1; O2SAT 100
[2023-07-02 08:15] VITALS: BP 149/76
[2023-07-02] MEDS: FOLIC ACID 1MG TAB PO SCH (08:49)
[2023-07-02] MEDS: FERROUS SULFATE 325MG TAB PO SCH (08:49)
[2023-07-02] MEDS: MULTIVITAMINS/MINERALS THERAP 1 TAB PO SCH (08:49)
[2023-07-02 16:00] VITALS: BP 120/78
[2023-07-02 16:09] VITALS: BP 149/76; TEMP 98.5; O2SAT 100
[2023-07-02 18:47] LABS: BLOOD UREA NITROGEN 8 MG/DL (9-23); CALCIUM LEVEL 8.5 MG/DL (8.5-10.1); CARBON DIOXIDE LEVEL 30 MMOL/L (20-31); CHLORIDE LEVEL 103 MMOL/L (98-107); CREATININE FOR GFR 0.76 MG/DL (0.70-1.30); GLOMERULAR FILTRATION RATE > 60.0 (>60); GLUCOSE, FASTING 98 MG/DL (60-100); POTASSIUM SERUM 3.7 MMOL/L (3.5-5.1); SODIUM LEVEL 136 MMOL/L (136-145)
[2023-07-02] MEDS ORDERED: HOME MED LIST COMPLETE! XX SCH (19:45)
[2023-07-02] MEDS: GABAPENTIN 300 MG CAP PO SCH (20:16)
[2023-07-02] MEDS: QUEtiapine FUMARATE 200 MG TAB PO SCH (20:16)
[2023-07-02] MEDS: PALIPERIDONE 3MG ER TAB (INVEGA) PO SCH (20:16)
[2023-07-02] MEDS: PRAZOSIN 1 MG CAP PO SCH (20:16)
[2023-07-02 20:22] LABS: Trichomonas vaginalis (AMP) NOT DETECTED (NEGATIVE)
[2023-07-02 20:46] LABS: GC DNA AMPLIFICATION NEGATIVE (NEGATIVE)
[2023-07-03] VITALS: BP 113/67
[2023-07-03 06:39] VITALS: BP 136/77; TEMP 99.1; O2SAT 100
[2023-07-03 08:00] VITALS: BP 134/76
[2023-07-03 14:00] VITALS: BP 127/76
[2023-07-03 18:08] VITALS: BP 127/76; TEMP 98.2; O2SAT 100
[2023-07-03 22:00] VITALS: BP 130/67
[2023-07-04 06:00] VITALS: BP 147/84
[2023-07-04 06:50] VITALS: BP 147/84; TEMP 99.1; O2SAT 100
[2023-07-04] MEDS: NICOTINE 21MG/24HR 1 EA TRANSDERMAL TD SCH (09:02)
[2023-07-04 18:24] VITALS: BP 147/84; TEMP 98.1; O2SAT 20
[2023-07-05 06:38] VITALS: BP 145/72; TEMP 98.7; O2SAT 100
[2023-07-05 15:12] VITALS: BP 138/85; TEMP 97.3
[2023-07-06 06:34] VITALS: BP 157/87; TEMP 96.7; O2SAT 99
[2023-07-06] MEDS: CEPACOL LOZENGE PO PRN ×2 (17:18→20:41)
[2023-07-06 18:17] VITALS: BP 144/82; TEMP 98.7
[2023-07-06 20:40] VITALS: BP 144/82
[2023-07-06] MEDS: QUEtiapine FUMARATE 25 MG TAB PO SCH (20:40)
[2023-07-06] MEDS: QUEtiapine FUMARATE 200 MG TAB PO SCH (20:40)
[2023-07-07 05:05] VITALS: BP 126/74; TEMP 97.2; TEMP 98.1; O2SAT 100
[2023-07-07] MEDS: buPROPion **XL** TABLET 150MG (WELLBUTRIN XL) PO SCH (09:07)
[2023-07-07] MEDS ORDERED: MINI1CAP PO (10:53)
[2023-07-07] MEDS ORDERED: BUPR150T12 PO (10:53)
[2023-07-07] MEDS ORDERED: QUET200T2 PO (10:53)
[2023-07-07] MEDS ORDERED: QUET1TAB17 PO (10:53)
[2023-07-07] MEDS ORDERED: TRAZ-252 PO (10:53)
[2023-07-07] MEDS ORDERED: GABA-282 PO (10:53)
[2023-07-07] MEDS ORDERED: FERR1TAB8 PO (10:53)
[2023-07-07] MEDS ORDERED: PALI1TAB2 PO (10:53)
== END 2023-07-07 15:03 | disposition home or self-care (01) | DRG 885 ==
LOC: M PSY 16:15 → UNDOADMIN 19:39
PROVIDERS: ADMIT Psychiatry & Neurology Psychiatry; ATTEND Student in an Organized Health Care Education/Training Program
DX: F20.0 Paranoid schizophrenia (principal); Z59.00 Homelessness unspecified; F10.139 Alcohol abuse with withdrawal, unspecified; R45.851 Suicidal ideations; D50.9 Iron deficiency anemia, unspecified; F17.210 Nicotine dependence, cigarettes, uncomplicated; Z91.198 Patient's noncompliance with other medical treatment and regimen for other reason; Z79.899 Other long term (current) drug therapy

== ENCOUNTER 2023-09-11 15:04 | Emergency (ER) | payer MEDICARE, OTHER ==
[~2023-09-11] VITALS: Ht 185.4 cm; Wt 82.8 kg
[2023-09-11 15:04] VITALS: BP 136/76; TEMP 98.1; O2SAT 97
[~2023-09-11 15:04] MED LIST changes: +BUPR150T12 PO; +DOXY-323 PO; -DOXY-443 PO; +FERR1TAB8 PO; +PALI1TAB2 PO; +QUET1TAB17 PO; +TRAZ-252 PO
[2023-09-11] MEDS ORDERED: BUPR150T12 PO (20:44)
[2023-09-11] MEDS ORDERED: NICO21PAT TOP (20:44)
[2023-09-11] MEDS ORDERED: QUET50TA4 PO (20:57)
[2023-09-11] MEDS ORDERED: TRAZ-186 PO (21:03)
[2023-09-11] MEDS ORDERED: MIRT1TAB PO (21:05)
[2023-09-11] MEDS ORDERED: BUSP1TAB PO (21:05)
== END 2023-09-11 15:29 | disposition left against medical advice (07) ==
LOC: M ED 15:04
DX: R45.851 Suicidal ideations (principal); F20.9 Schizophrenia, unspecified; F17.210 Nicotine dependence, cigarettes, uncomplicated; F10.10 Alcohol abuse, uncomplicated; Z79.899 Other long term (current) drug therapy; Z79.810 Long term (current) use of selective estrogen receptor modulators (SERMs)

== ENCOUNTER 2023-09-11 15:33 | Inpatient (IN) | payer MEDICAID, OTHER ==
[~2023-09-11] VITALS: Ht 185.4 cm; Wt 81.8 kg
[2023-09-11] MEDS ORDERED: LORazepam 2 MG TAB PO PRN (16:05)
[2023-09-11 16:07] LABS: HEMATOCRIT 45.6 % (42.0-52.0); HEMOGLOBIN 15.2 g/dl (13.5-17.5); MEAN CORPUSCULAR HEMOGLOBIN 28.7 pg (27.0-33.0); MEAN CORPUSCULAR HGB CONC 33.3 g/dl (32.0-36.5); MEAN CORPUSCULAR VOLUME 86.2 fl (80.0-96.0); PLATELET COUNT, AUTOMATED 305 10^3/uL (150-450); RED BLOOD COUNT 5.29 10^6/uL (4.30-6.10); WHITE BLOOD COUNT 9.1 10^3/uL (4.0-10.0)
[2023-09-11] MEDS: MULTIVITAMINS/MINERALS THERAP 1 TAB PO SCH (16:15)
[2023-09-11] MEDS: FOLIC ACID 1MG TAB PO SCH (16:16)
[2023-09-11 16:31] LABS: ETHYL ALCOHOL (ETHANOL) 0.186 % (0.000-0.010)
[2023-09-11 16:33] LABS: ALBUMIN 4.2 G/DL (3.2-5.2); ALKALINE PHOSPHATASE 93 U/L (46-116); ALT/SGPT 40 U/L (7.0-40); AST/SGOT 34 U/L (<34); BILIRUBIN,DIRECT 0.2 MG/DL (<0.4); BILIRUBIN,TOTAL 0.6 MG/DL (0.3-1.2); BLOOD UREA NITROGEN 6 MG/DL (9-23); CALCIUM LEVEL 9.3 MG/DL (8.5-10.1); CARBON DIOXIDE LEVEL 19 MMOL/L (20-31); CHLORIDE LEVEL 106 MMOL/L (98-107); CREATININE FOR GFR 0.83 MG/DL (0.70-1.30); GLOMERULAR FILTRATION RATE > 60.0 (>60); GLUCOSE, FASTING 70 MG/DL (60-100); POTASSIUM SERUM 4.1 MMOL/L (3.5-5.1); SALICYLATE LEVEL < 3.0 MG/DL (<30); SODIUM LEVEL 135 MMOL/L (136-145); TOTAL PROTEIN 7.7 G/DL (5.7-8.2)
[2023-09-11 16:35] LABS: THYROID STIMULATING HORMONE 0.145 uIU/ML (0.55-4.78)
[2023-09-11 16:54] LABS: BARBITURATES URINE NEGATIVE (NEGATIVE); BENZODIAZEPINES URINE NEGATIVE (NEGATIVE); CANNABINOIDS URINE NEGATIVE (NEGATIVE); COCAINE METABOLITE URINE NEGATIVE (NEGATIVE); METHADONE URINE NEGATIVE (NEGATIVE); OPIATES URINE NEGATIVE (NEGATIVE); PHENCYCLIDINE URINE NEGATIVE (NEGATIVE)
[2023-09-11 17:02] LABS: AMPHETAMINES LEVEL URINE POSITIVE (NEGATIVE)
[2023-09-11] MEDS ORDERED: BUPR150T12 PO (20:44)
[2023-09-11] MEDS ORDERED: NICO21PAT TOP (20:44)
[2023-09-11] MEDS ORDERED: QUET50TA4 PO (20:57)
[2023-09-11] MEDS: THIAMINE 100 MG TAB PO SCH (21:03)
[2023-09-11] MEDS ORDERED: TRAZ-186 PO (21:03)
[2023-09-11] MEDS ORDERED: BUSP1TAB PO (21:05)
[2023-09-11] MEDS ORDERED: MIRT1TAB PO (21:05)
[2023-09-11] MEDS ORDERED: HOME MED LIST COMPLETE! XX SCH (21:10)
[2023-09-12] MEDS: diphenhydrAMINE 25MG CAP PO ONE (05:43)
[2023-09-12] MEDS ORDERED: PILL CUTTER 1 EACH XX PRN (08:35)
[2023-09-12] MEDS: busPIRone 5 MG TAB PO SCH (09:14)
[2023-09-12] MEDS: NICOTINE 21MG/24HR 1 EA TRANSDERMAL TOP SCH (09:15)
[2023-09-12] MEDS ORDERED: MAALOX 30 ML SUSP *UDC PO PRN (14:30)
[2023-09-12] MEDS ORDERED: MOM 30ML SUSPENSION UDC PO PRN (14:30)
[2023-09-12] MEDS ORDERED: diphenhydrAMINE 25MG CAP PO PRN (14:30)
[2023-09-12] MEDS ORDERED: IBUPROFEN 400MG TAB PO PRN (14:30)
[2023-09-12] MEDS ORDERED: ACETAMINOPHEN TAB 650MG DOSE (2X325MG) PO PRN (14:30)
[2023-09-12] MEDS ORDERED: OLANZapine ORAL DISINTEGRATING TAB 5MG PO PRN (14:30)
[2023-09-12 15:32] VITALS: BP 114/71; TEMP 97.4; O2SAT 98
[2023-09-12 16:01] VITALS: BP 114/71
[2023-09-12] MEDS: LORazepam 2 MG TAB PO PRN (16:06)
[2023-09-12] MEDS ORDERED: buPROPion **XL** TABLET 150MG (WELLBUTRIN XL) PO SCH (21:00)
[2023-09-12] MEDS ORDERED: PALIPERIDONE 6MG ER TAB (INVEGA) PO SCH (21:00)
[2023-09-12] MEDS ORDERED: QUEtiapine FUMARATE 200 MG TAB PO SCH (21:00)
[2023-09-12] MEDS ORDERED: PRAZOSIN 1 MG CAP PO SCH (21:00)
[2023-09-12] MEDS ORDERED: MIRTAZAPINE 7.5MG PER 1/2 TABLET PO SCH (21:00)
[2023-09-12] MEDS ORDERED: QUEtiapine FUMARATE 50MG TAB PO SCH (21:00)
[2023-09-12] MEDS: QUEtiapine FUMARATE 200 MG TAB PO SCH (21:45)
[2023-09-12] MEDS: THIAMINE 100 MG TAB PO SCH (21:46)
[2023-09-12] MEDS: QUEtiapine FUMARATE 25 MG TAB PO SCH (21:46)
[2023-09-13 06:23] VITALS: BP 108/74; TEMP 98.3; O2SAT 98
[2023-09-13] MEDS: FOLIC ACID 1MG TAB PO SCH (08:46)
[2023-09-13] MEDS: MULTIVITAMINS/MINERALS THERAP 1 TAB PO SCH (08:46)
[2023-09-13] MEDS ORDERED: MIRTAZAPINE 7.5MG PER 1/2 TABLET PO PRN (09:50)
[2023-09-13] MEDS: busPIRone 5 MG TAB PO SCH (10:43)
[2023-09-13] MEDS: NICOTINE 21MG/24HR 1 EA TRANSDERMAL TD SCH (14:29)
[2023-09-13 18:27] VITALS: BP 103/62; TEMP 98.2
[2023-09-13 20:13] VITALS: BP 103/62
[2023-09-13] MEDS: PRAZOSIN 1 MG CAP PO SCH (20:13)
[2023-09-13] MEDS: traZODone 50 MG TAB PO PRN (20:13)
[2023-09-13] MEDS: PALIPERIDONE 6MG ER TAB (INVEGA) PO SCH (20:13)
[2023-09-13] MEDS ORDERED: QUEtiapine FUMARATE 25 MG TAB PO SCH (21:00)
[2023-09-13] MEDS ORDERED: QUEtiapine FUMARATE 200 MG TAB PO SCH (21:00)
[2023-09-14 06:19] VITALS: BP 103/61; TEMP 98.2; O2SAT 100
[2023-09-14] MEDS: PILL CUTTER 1 EACH XX PRN (09:14)
== END 2023-09-14 14:11 | disposition home or self-care (01) | DRG 754 ==
LOC: M ED 15:33 → M ED INP 09-12 14:30 → M PSY 09-12 15:27
PROVIDERS: ADMIT Student in an Organized Health Care Education/Training Program; ATTEND Student in an Organized Health Care Education/Training Program
DX: F32.A Depression, unspecified (principal); E87.1 Hypo-osmolality and hyponatremia; R45.851 Suicidal ideations; F20.9 Schizophrenia, unspecified; F10.920 Alcohol use, unspecified with intoxication, uncomplicated; Z63.0 Problems in relationship with spouse or partner; Z79.899 Other long term (current) drug therapy; Z56.0 Unemployment, unspecified; Z91.51 Personal history of suicidal behavior

== ENCOUNTER 2023-09-27 21:33 | Emergency (ER) | payer MEDICARE, MEDICAID ==
[~2023-09-27] VITALS: Ht 185.4 cm; Wt 83.1 kg
[~2023-09-27 21:33] MED LIST changes: +BUSP1TAB PO; +MIRT1TAB PO; +NICO21PAT TOP; +QUET50TA4 PO; +TRAZ-186 PO
[2023-09-27 21:34] VITALS: BP 137/88; TEMP 98.9; O2SAT 99
[2023-09-27 22:24] LABS: HEMOGLOBIN 14.9 g/dl (13.5-17.5); MEAN CORPUSCULAR HEMOGLOBIN 29.3 pg (27.0-33.0); MEAN CORPUSCULAR HGB CONC 33.9 g/dl (32.0-36.5); MEAN CORPUSCULAR VOLUME 86.4 fl (80.0-96.0); PLATELET COUNT, AUTOMATED 230 10^3/uL (150-450); RED BLOOD COUNT 5.09 10^6/uL (4.30-6.10); WHITE BLOOD COUNT 10.4 10^3/uL (4.0-10.0)
[2023-09-27 22:47] LABS: AMPHETAMINES LEVEL URINE POSITIVE (NEGATIVE); BARBITURATES URINE NEGATIVE (NEGATIVE); BENZODIAZEPINES URINE NEGATIVE (NEGATIVE); CANNABINOIDS URINE NEGATIVE (NEGATIVE); COCAINE METABOLITE URINE NEGATIVE (NEGATIVE); METHADONE URINE NEGATIVE (NEGATIVE); OPIATES URINE NEGATIVE (NEGATIVE); PHENCYCLIDINE URINE NEGATIVE (NEGATIVE)
[2023-09-27 22:50] LABS: SALICYLATE LEVEL < 3.0 MG/DL (<30)
[2023-09-27 22:53] LABS: ALBUMIN 4.3 G/DL (3.2-5.2); ALKALINE PHOSPHATASE 83 U/L (46-116); ALT/SGPT 17 U/L (7.0-40); AST/SGOT 13 U/L (<34); BILIRUBIN,DIRECT < 0.1 MG/DL (<0.4); BILIRUBIN,TOTAL 0.3 MG/DL (0.3-1.2); BLOOD UREA NITROGEN < 5 MG/DL (9-23); CALCIUM LEVEL 9.6 MG/DL (8.5-10.1); CARBON DIOXIDE LEVEL 25 MMOL/L (20-31); CHLORIDE LEVEL 104 MMOL/L (98-107); CREATININE FOR GFR 0.74 MG/DL (0.70-1.30); GLOMERULAR FILTRATION RATE > 60.0 (>60); GLUCOSE, FASTING 92 MG/DL (60-100); POTASSIUM SERUM 3.7 MMOL/L (3.5-5.1); SODIUM LEVEL 137 MMOL/L (136-145); THYROID STIMULATING HORMONE 0.176 uIU/ML (0.55-4.78); TOTAL PROTEIN 7.7 G/DL (5.7-8.2)
== END 2023-09-27 22:36 | disposition left against medical advice (07) ==
LOC: M ED 21:33
DX: Z53.21 Procedure and treatment not carried out due to patient leaving prior to being seen by health care provider (principal)

== ENCOUNTER 2023-11-03 02:41 | Emergency (ER) | payer MEDICARE, MEDICAID ==
[~2023-11-03] VITALS: Ht 185.4 cm; Wt 81.8 kg
[2023-11-03 04:06] LABS: HEMATOCRIT 43.9 % (42.0-52.0); HEMOGLOBIN 15.2 g/dl (13.5-17.5); MEAN CORPUSCULAR HEMOGLOBIN 29.5 pg (27.0-33.0); MEAN CORPUSCULAR HGB CONC 34.6 g/dl (32.0-36.5); MEAN CORPUSCULAR VOLUME 85.1 fl (80.0-96.0); PLATELET COUNT, AUTOMATED 239 10^3/uL (150-450); RED BLOOD COUNT 5.16 10^6/uL (4.30-6.10); WHITE BLOOD COUNT 7.7 10^3/uL (4.0-10.0)
[2023-11-03 04:29] LABS: AMPHETAMINES LEVEL URINE NEGATIVE (NEGATIVE); BARBITURATES URINE NEGATIVE (NEGATIVE); BENZODIAZEPINES URINE NEGATIVE (NEGATIVE); COCAINE METABOLITE URINE NEGATIVE (NEGATIVE); METHADONE URINE NEGATIVE (NEGATIVE)
[2023-11-03 04:30] LABS: CANNABINOIDS URINE NEGATIVE (NEGATIVE); OPIATES URINE NEGATIVE (NEGATIVE); PHENCYCLIDINE URINE NEGATIVE (NEGATIVE)
[2023-11-03 04:32] LABS: ETHYL ALCOHOL (ETHANOL) 0.288 % (0.000-0.010)
[2023-11-03 04:34] LABS: SALICYLATE LEVEL < 3.0 MG/DL (<30)
[2023-11-03 05:02] LABS: Trichomonas vaginalis (AMP) NOT DETECTED (NEGATIVE)
[2023-11-03 05:16] LABS: ALBUMIN 4.2 G/DL (3.2-5.2); ALKALINE PHOSPHATASE 82 U/L (46-116); ALT/SGPT 36 U/L (7.0-40); AST/SGOT 30 U/L (<34); BILIRUBIN,DIRECT 0.2 MG/DL (<0.4); BILIRUBIN,TOTAL 0.4 MG/DL (0.3-1.2); BLOOD UREA NITROGEN < 5 MG/DL (9-23); CALCIUM LEVEL 9.3 MG/DL (8.5-10.1); CARBON DIOXIDE LEVEL 26 MMOL/L (20-31); CHLORIDE LEVEL 97 MMOL/L (98-107); CREATININE FOR GFR 0.73 MG/DL (0.70-1.30); GLOMERULAR FILTRATION RATE > 60.0 (>60); GLUCOSE, FASTING 136 MG/DL (60-100); POTASSIUM SERUM 4.1 MMOL/L (3.5-5.1); SODIUM LEVEL 133 MMOL/L (136-145); THYROID STIMULATING HORMONE 0.262 uIU/ML (0.55-4.78); TOTAL PROTEIN 7.3 G/DL (5.7-8.2)
[2023-11-03 05:25] LABS: GC DNA AMPLIFICATION NEGATIVE (NEGATIVE)
[2023-11-03] MEDS ORDERED: QUET300T2 (08:32)
[2023-11-03] MEDS ORDERED: LEXA1TAB (08:32)
[2023-11-03] MEDS ORDERED: TRAZ-252 (08:32)
[2023-11-03] MEDS ORDERED: BUSP10TA (08:32)
[2023-11-03] MEDS: traZODone 50 MG TAB PO SCH (09:05)
[2023-11-03] MEDS: MULTIVITAMINS/MINERALS THERAP 1 TAB PO SCH (09:05)
[2023-11-03] MEDS: NICOTINE 21MG/24HR 1 EA TRANSDERMAL TD ONE (09:06)
[2023-11-03] MEDS ORDERED: HOME MED LIST COMPLETE! XX SCH (09:25)
[2023-11-03] MEDS: QUEtiapine FUMARATE 100 MG TAB PO SCH (13:57)
[2023-11-03] MEDS ORDERED: LORazepam 2 MG TAB PO PRN (18:45)
[2023-11-03] MEDS: PALIPERIDONE 6MG ER TAB (INVEGA) PO SCH (20:56)
[2023-11-03] MEDS: THIAMINE 100 MG TAB PO SCH (20:56)
[2023-11-03] MEDS: PRAZOSIN 1 MG CAP PO SCH (20:56)
[2023-11-03] MEDS: MIRTAZAPINE 7.5MG PER 1/2 TABLET PO SCH (20:57)
[2023-11-03] MEDS: buPROPion **XL** TABLET 150MG (WELLBUTRIN XL) PO SCH (20:57)
[2023-11-04 02:31] VITALS: TEMP 98.2; O2SAT 100
[2023-11-04] MEDS: MULTIVITAMINS/MINERALS THERAP 1 TAB PO SCH (09:00)
[2023-11-04] MEDS: FOLIC ACID 1MG TAB PO SCH (10:31)
[2023-11-04 13:16] VITALS: BP 123/82
== END 2023-11-04 16:11 | disposition home or self-care (01) ==
LOC: M ED 02:41
DX: F10.120 Alcohol abuse with intoxication, uncomplicated (principal); F10.159 Alcohol abuse with alcohol-induced psychotic disorder, unspecified; F32.A Depression, unspecified; F20.9 Schizophrenia, unspecified; F17.210 Nicotine dependence, cigarettes, uncomplicated

== ENCOUNTER 2023-11-22 14:02 | Emergency (ER) | payer MEDICARE, MEDICAID ==
[~2023-11-22] VITALS: Ht 180.3 cm; Wt 86.4 kg
[2023-11-22] MEDS: THIAMINE 100 MG TAB PO SCH (09:00)
[2023-11-22] MEDS: FOLIC ACID 1MG TAB PO SCH (09:00)
[2023-11-22] MEDS: MULTIVITAMINS/MINERALS THERAP 1 TAB PO SCH (09:00)
[~2023-11-22 14:02] MED LIST changes: +BUSP10TA; +LEXA1TAB; +QUET300T2; +TRAZ-252
[2023-11-22 14:48] LABS: HEMOGLOBIN 15.2 g/dl (13.5-17.5); MEAN CORPUSCULAR HGB CONC 34.5 g/dl (32.0-36.5); MEAN CORPUSCULAR VOLUME 83.8 fl (80.0-96.0); PLATELET COUNT, AUTOMATED 286 10^3/uL (150-450); RED BLOOD COUNT 5.25 10^6/uL (4.30-6.10); WHITE BLOOD COUNT 6.3 10^3/uL (4.0-10.0)
[2023-11-22 15:26] LABS: SALICYLATE LEVEL < 3.0 MG/DL (<30)
[2023-11-22 15:36] LABS: ALBUMIN 4.2 G/DL (3.2-5.2); ALKALINE PHOSPHATASE 89 U/L (46-116); ALT/SGPT 43 U/L (7.0-40); AST/SGOT 54 U/L (<34); BILIRUBIN,DIRECT 0.2 MG/DL (<0.4); BILIRUBIN,TOTAL 0.5 MG/DL (0.3-1.2); CALCIUM LEVEL 9.1 MG/DL (8.5-10.1); CARBON DIOXIDE LEVEL 21 MMOL/L (20-31); CHLORIDE LEVEL 97 MMOL/L (98-107); GLOMERULAR FILTRATION RATE > 60.0 (>60); GLUCOSE, FASTING 83 MG/DL (60-100); POTASSIUM SERUM 4.1 MMOL/L (3.5-5.1); SODIUM LEVEL 130 MMOL/L (136-145); THYROID STIMULATING HORMONE 0.088 uIU/ML (0.55-4.78); TOTAL PROTEIN 7.4 G/DL (5.7-8.2)
[2023-11-22 15:37] LABS: BLOOD UREA NITROGEN < 5 MG/DL (9-23)
[2023-11-22 16:10] LABS: BARBITURATES URINE NEGATIVE (NEGATIVE)
[2023-11-22 16:11] LABS: BENZODIAZEPINES URINE NEGATIVE (NEGATIVE); CANNABINOIDS URINE NEGATIVE (NEGATIVE); COCAINE METABOLITE URINE NEGATIVE (NEGATIVE); METHADONE URINE NEGATIVE (NEGATIVE); OPIATES URINE NEGATIVE (NEGATIVE); PHENCYCLIDINE URINE NEGATIVE (NEGATIVE)
[2023-11-22 16:13] LABS: AMPHETAMINES LEVEL URINE POSITIVE (NEGATIVE)
[2023-11-22 16:35] LABS: HIV 1&2 SCREEN NEGATIVE (NEGATIVE)
[2023-11-22 17:39] LABS: ETHYL ALCOHOL (ETHANOL) 0.222 % (0.000-0.010)
[2023-11-22] MEDS: LORazepam 2 MG TAB PO PRN (20:07)
[2023-11-22] MEDS ORDERED: BUPR150T12 (23:28)
[2023-11-22] MEDS ORDERED: escitalopram (23:28)
[2023-11-22] MEDS ORDERED: NICO21DI38 (23:28)
[2023-11-22] MEDS ORDERED: PRAZ1CAP (23:28)
[2023-11-22] MEDS: NICOTINE 21MG/24HR 1 EA TRANSDERMAL TD ONE (23:30)
[2023-11-22] MEDS ORDERED: LEXA1TAB PO (23:56)
[2023-11-22] MEDS ORDERED: TRAZ-186 PO (23:56)
[2023-11-22] MEDS ORDERED: QUET300T2 PO (23:56)
[2023-11-22] MEDS ORDERED: NICO21DI37 TD (23:56)
[2023-11-22] MEDS ORDERED: BUSP10TA PO (23:56)
[2023-11-22] MEDS ORDERED: BUPR150T12 PO (23:56)
[2023-11-23] MEDS ORDERED: HOME MED LIST COMPLETE! XX SCH
[2023-11-23 12:49] VITALS: BP 133/87; TEMP 98.1; O2SAT 98
== END 2023-11-23 12:52 | disposition home or self-care (01) ==
LOC: M ED 14:02
DX: F10.129 Alcohol abuse with intoxication, unspecified (principal); F20.9 Schizophrenia, unspecified; F19.10 Other psychoactive substance abuse, uncomplicated; F17.200 Nicotine dependence, unspecified, uncomplicated; Z79.899 Other long term (current) drug therapy

== ENCOUNTER 2023-11-24 12:58 | Emergency (ER) | payer MEDICARE, MEDICAID ==
[~2023-11-24] VITALS: Ht 185.4 cm; Wt 80.9 kg
[~2023-11-24 12:58] MED LIST changes: +BUPR150T12; +BUSP10TA PO; +LEXA1TAB PO; +NICO21DI37 TD; +NICO21DI38; +PRAZ1CAP; +QUET300T2 PO; +escitalopram
[2023-11-24 14:15] LABS: HEMATOCRIT 41.9 % (42.0-52.0); HEMOGLOBIN 14.7 g/dl (13.5-17.5); MEAN CORPUSCULAR HEMOGLOBIN 29.3 pg (27.0-33.0); MEAN CORPUSCULAR HGB CONC 35.1 g/dl (32.0-36.5); MEAN CORPUSCULAR VOLUME 83.6 fl (80.0-96.0); PLATELET COUNT, AUTOMATED 216 10^3/uL (150-450); RED BLOOD COUNT 5.01 10^6/uL (4.30-6.10)
[2023-11-24 14:36] LABS: BARBITURATES URINE NEGATIVE (NEGATIVE); BENZODIAZEPINES URINE NEGATIVE (NEGATIVE); CANNABINOIDS URINE NEGATIVE (NEGATIVE); COCAINE METABOLITE URINE NEGATIVE (NEGATIVE); METHADONE URINE NEGATIVE (NEGATIVE); OPIATES URINE NEGATIVE (NEGATIVE); PHENCYCLIDINE URINE NEGATIVE (NEGATIVE)
[2023-11-24 14:38] LABS: ETHYL ALCOHOL (ETHANOL) 0.131 % (0.000-0.010)
[2023-11-24 14:39] LABS: AMPHETAMINES LEVEL URINE POSITIVE (NEGATIVE)
[2023-11-24 14:40] LABS: SALICYLATE LEVEL < 3.0 MG/DL (<30)
[2023-11-24 14:46] LABS: ALBUMIN 3.9 G/DL (3.2-5.2); ALKALINE PHOSPHATASE 80 U/L (46-116); ALT/SGPT 44 U/L (7.0-40); AST/SGOT 45 U/L (<34); BILIRUBIN,DIRECT 0.2 MG/DL (<0.4); BILIRUBIN,TOTAL 0.4 MG/DL (0.3-1.2); BLOOD UREA NITROGEN < 5 MG/DL (9-23); CALCIUM LEVEL 9.2 MG/DL (8.5-10.1); CARBON DIOXIDE LEVEL 27 MMOL/L (20-31); CHLORIDE LEVEL 100 MMOL/L (98-107); CREATININE FOR GFR 0.65 MG/DL (0.70-1.30); GLOMERULAR FILTRATION RATE > 60.0 (>60); GLUCOSE, FASTING 97 MG/DL (60-100); POTASSIUM SERUM 3.5 MMOL/L (3.5-5.1); SODIUM LEVEL 131 MMOL/L (136-145); THYROID STIMULATING HORMONE 0.343 uIU/ML (0.55-4.78); TOTAL PROTEIN 6.9 G/DL (5.7-8.2)
[2023-11-24 15:49] VITALS: BP 158/93; TEMP 97.4; O2SAT 100
== END 2023-11-24 15:56 | disposition left against medical advice (07) ==
LOC: M ED 12:58
DX: R41.82 Altered mental status, unspecified (principal); F20.9 Schizophrenia, unspecified; F10.10 Alcohol abuse, uncomplicated; Z79.899 Other long term (current) drug therapy; Z53.9 Procedure and treatment not carried out, unspecified reason

== ENCOUNTER → 2023-12-16 | Outpatient (CLI) | payer MEDICARE, MEDICAID ==
[2023-12-16 13:22] LABS: BASO # 0.1 10^3/uL (0.0-0.2); BASO % 0.9 % (0.0-1.0); EOS # 0.2 10^3/uL (0.0-0.5); EOS % 3.3 % (0.0-3.0); HEMATOCRIT 41.1 % (42.0-52.0); HEMOGLOBIN 13.7 g/dl (13.5-17.5); LYMPH # 2.4 10^3/uL (1.5-5.0); LYMPH % 36.4 % (24.0-44.0); MEAN CORPUSCULAR HGB CONC 33.3 g/dl (32.0-36.5); MEAN CORPUSCULAR VOLUME 86.9 fl (80.0-96.0); MONO % 15.7 % (2.0-8.0); NEUTROPHILS # 2.8 10^3/uL (1.5-8.5); NEUTROPHILS % 43.4 % (36.0-66.0); PLATELET COUNT, AUTOMATED 242 10^3/uL (150-450); RED BLOOD COUNT 4.73 10^6/uL (4.30-6.10); WHITE BLOOD COUNT 6.5 10^3/uL (4.0-10.0)
[2023-12-16 13:34] LABS: HEMOGLOBIN A1c 5.3 % (4.0-6.0)
[2023-12-16 13:45] LABS: ALBUMIN 3.5 G/DL (3.2-5.2); ALKALINE PHOSPHATASE 60 U/L (46-116); ALT/SGPT 46 U/L (7.0-40); AST/SGOT 59 U/L (<34); BILIRUBIN,TOTAL 0.7 MG/DL (0.3-1.2); BLOOD UREA NITROGEN 5 MG/DL (9-23); CALCIUM LEVEL 8.9 MG/DL (8.5-10.1); CARBON DIOXIDE LEVEL 28 MMOL/L (20-31); CHLORIDE LEVEL 111 MMOL/L (98-107); CHOLESTEROL LEVEL 158 MG/DL (<200); CHOLESTEROL RISK RATIO 4.12 (<5); CREATININE FOR GFR 0.85 MG/DL (0.70-1.30); GLOMERULAR FILTRATION RATE > 60.0 (>60); GLUCOSE, FASTING 91 MG/DL (60-100); HDL CHOLESTEROL 38.3 MG/DL (>40); LDL CHOLESTEROL 91.9 MG/DL (<100); NON-HDL-C 119.7 MG/DL; POTASSIUM SERUM 4.1 MMOL/L (3.5-5.1); SODIUM LEVEL 141 MMOL/L (136-145); TOTAL PROTEIN 6.6 G/DL (5.7-8.2); TRIGLYCERIDES LEVEL 139 MG/DL (<150)
[2023-12-16 14:14] LABS: HIV 1&2 SCREEN NEGATIVE (NEGATIVE)
[2023-12-16 14:22] LABS: HEPATITIS C VIRUS ABY INDEX < 0.02 INDEX (<0.8)
[2023-12-16 16:27] LABS: Trichomonas vaginalis (AMP) NOT DETECTED (NEGATIVE)
[2023-12-16 16:51] LABS: GC DNA AMPLIFICATION NEGATIVE (NEGATIVE)
== END ==
LOC: M PLALAB 11:50
PROVIDERS: ATTEND Nurse Practitioner Family
DX: F20.89 Other schizophrenia (principal); R73.03 Prediabetes; R74.8 Abnormal levels of other serum enzymes; Z11.3 Encounter for screening for infections with a predominantly sexual mode of transmission; Z13.220 Encounter for screening for lipoid disorders

== ENCOUNTER 2024-01-11 14:15 | Emergency (ER) | payer MEDICARE, MEDICAID ==
[~2024-01-11] VITALS: Ht 185.4 cm; Wt 75.6 kg
[2024-01-11 15:16] LABS: HEMATOCRIT 41.1 % (42.0-52.0); HEMOGLOBIN 14.3 g/dl (13.5-17.5); MEAN CORPUSCULAR HEMOGLOBIN 29.5 pg (27.0-33.0); MEAN CORPUSCULAR HGB CONC 34.8 g/dl (32.0-36.5); MEAN CORPUSCULAR VOLUME 84.9 fl (80.0-96.0); PLATELET COUNT, AUTOMATED 213 10^3/uL (150-450); RED BLOOD COUNT 4.84 10^6/uL (4.30-6.10); WHITE BLOOD COUNT 6.1 10^3/uL (4.0-10.0)
[2024-01-11 15:40] LABS: AMPHETAMINES LEVEL URINE NEGATIVE (NEGATIVE); BARBITURATES URINE NEGATIVE (NEGATIVE)
[2024-01-11 15:41] LABS: BENZODIAZEPINES URINE NEGATIVE (NEGATIVE); CANNABINOIDS URINE NEGATIVE (NEGATIVE); COCAINE METABOLITE URINE NEGATIVE (NEGATIVE); METHADONE URINE NEGATIVE (NEGATIVE); OPIATES URINE NEGATIVE (NEGATIVE); PHENCYCLIDINE URINE NEGATIVE (NEGATIVE)
[2024-01-11 15:44] LABS: ETHYL ALCOHOL (ETHANOL) 0.011 % (0.000-0.010)
[2024-01-11 15:45] LABS: SALICYLATE LEVEL < 3.0 MG/DL (<30)
[2024-01-11 15:58] LABS: ALKALINE PHOSPHATASE 76 U/L (46-116); ALT/SGPT 58 U/L (7.0-40); AST/SGOT 76 U/L (<34); BILIRUBIN,DIRECT 0.5 MG/DL (<0.4); BILIRUBIN,TOTAL 1.5 MG/DL (0.3-1.2); BLOOD UREA NITROGEN < 5 MG/DL (9-23); CALCIUM LEVEL 9.5 MG/DL (8.5-10.1); CARBON DIOXIDE LEVEL 26 MMOL/L (20-31); CHLORIDE LEVEL 98 MMOL/L (98-107); CREATININE FOR GFR 0.67 MG/DL (0.70-1.30); GLOMERULAR FILTRATION RATE > 60.0 (>60); GLUCOSE, FASTING 80 MG/DL (60-100); POTASSIUM SERUM 4.5 MMOL/L (3.5-5.1); SODIUM LEVEL 130 MMOL/L (136-145); THYROID STIMULATING HORMONE 0.093 uIU/ML (0.55-4.78); TOTAL PROTEIN 7.2 G/DL (5.7-8.2)
[2024-01-11] MEDS ORDERED: BENA25CA4 PO (16:21)
[2024-01-11] MEDS ORDERED: HOME MED LIST COMPLETE! XX SCH (16:25)
[2024-01-11] MEDS: busPIRone 10 MG TAB PO SCH (20:26)
[2024-01-11] MEDS: PALIPERIDONE 6MG ER TAB (INVEGA) PO SCH (20:26)
[2024-01-11] MEDS: PRAZOSIN 1 MG CAP PO SCH (20:26)
[2024-01-11] MEDS: QUEtiapine FUMARATE 100 MG TAB PO SCH (20:27)
[2024-01-12 08:42] VITALS: BP 112/76; TEMP 97.1; O2SAT 100
[2024-01-12] MEDS: ESCITALOPRAM OXALATE 10 MG TAB (LEXAPRO) PO SCH (08:43)
[2024-01-12] MEDS: buPROPion **XL** TABLET 150MG (WELLBUTRIN XL) PO SCH (08:43)
== END 2024-01-12 09:45 | disposition home or self-care (01) ==
LOC: M ED 14:15
DX: F43.20 Adjustment disorder, unspecified (principal); F20.9 Schizophrenia, unspecified; F17.210 Nicotine dependence, cigarettes, uncomplicated; Z79.899 Other long term (current) drug therapy

== ENCOUNTER 2024-02-11 13:31 | Emergency (ER) | payer MEDICARE, MEDICAID ==
[~2024-02-11] VITALS: Ht 185.4 cm; Wt 75.0 kg
[~2024-02-11 13:31] MED LIST changes: +BENA25CA4 PO; -DOXY-323 PO; +DOXY-441 PO; +GABA-1172 PO; -GABA-282 PO
[2024-02-11 14:59] LABS: BASO # 0.1 10^3/uL (0.0-0.2); BASO % 1.1 % (0.0-1.0); EOS # 0.2 10^3/uL (0.0-0.5); EOS % 2.2 % (0.0-3.0); HEMATOCRIT 38.2 % (42.0-52.0); HEMOGLOBIN 13.3 g/dl (13.5-17.5); LYMPH % 35.5 % (24.0-44.0); MEAN CORPUSCULAR HGB CONC 34.8 g/dl (32.0-36.5); MEAN CORPUSCULAR VOLUME 86.2 fl (80.0-96.0); MONO % 11.6 % (2.0-8.0); NEUTROPHILS # 4.1 10^3/uL (1.5-8.5); NEUTROPHILS % 49.4 % (36.0-66.0); PLATELET COUNT, AUTOMATED 217 10^3/uL (150-450); RED BLOOD COUNT 4.43 10^6/uL (4.30-6.10); WHITE BLOOD COUNT 8.4 10^3/uL (4.0-10.0)
[2024-02-11 15:11] LABS: INR 0.97; PROTHROMBIN TIME 12.6 SECONDS (12.5-14.5)
[2024-02-11] MEDS: ASPIRIN 81MG CHEW TABLET PO ONE (15:14)
[2024-02-11 15:22] LABS: BARBITURATES URINE NEGATIVE (NEGATIVE)
[2024-02-11 15:23] LABS: BENZODIAZEPINES URINE NEGATIVE (NEGATIVE); CANNABINOIDS URINE NEGATIVE (NEGATIVE); COCAINE METABOLITE URINE NEGATIVE (NEGATIVE); METHADONE URINE NEGATIVE (NEGATIVE); OPIATES URINE NEGATIVE (NEGATIVE); PHENCYCLIDINE URINE NEGATIVE (NEGATIVE)
[2024-02-11 15:25] LABS: AMPHETAMINES LEVEL URINE POSITIVE (NEGATIVE); CK-MB VALUE MASS 1.1 NG/ML (<3.6)
[2024-02-11 15:26] LABS: CPK CREATINE PHOSPHOKINASE 166 U/L (46-171); MB/CK RELATIVE INDEX 0.66 (< OR =4)
[2024-02-11 15:30] LABS: ALBUMIN 3.6 G/DL (3.2-5.2); ALKALINE PHOSPHATASE 78 U/L (46-116); ALT/SGPT 43 U/L (7.0-40); AST/SGOT 43 U/L (<34); BILIRUBIN,DIRECT 0.3 MG/DL (<0.4); BILIRUBIN,TOTAL 0.7 MG/DL (0.3-1.2); BLOOD UREA NITROGEN < 5 MG/DL (9-23); CALCIUM LEVEL 9.4 MG/DL (8.5-10.1); CARBON DIOXIDE LEVEL 26 MMOL/L (20-31); CHLORIDE LEVEL 102 MMOL/L (98-107); CREATININE FOR GFR 0.55 MG/DL (0.70-1.30); GLOMERULAR FILTRATION RATE > 60.0 (>60); GLUCOSE, FASTING 87 MG/DL (60-100); POTASSIUM SERUM 3.7 MMOL/L (3.5-5.1); SODIUM LEVEL 132 MMOL/L (136-145)
[2024-02-11 16:37] LABS: CK-MB VALUE MASS < 1.0 NG/ML (<3.6)
[2024-02-11 16:39] LABS: CPK CREATINE PHOSPHOKINASE 162 U/L (46-171); MB/CK RELATIVE INDEX 0.61 (< OR =4)
[2024-02-11 17:23] VITALS: BP 130/76; TEMP 97.8; O2SAT 97
== END 2024-02-11 17:25 | disposition home or self-care (01) ==
LOC: M ED 13:31 → EDBD 13:31 → M ED 17:25
DX: R07.9 Chest pain, unspecified (principal); I45.81 Long QT syndrome; F20.9 Schizophrenia, unspecified; F17.210 Nicotine dependence, cigarettes, uncomplicated; Z79.899 Other long term (current) drug therapy

== ENCOUNTER 2024-04-10 03:12 | Emergency (ER) | payer MEDICARE, MEDICAID ==
[~2024-04-10] VITALS: Ht 185.4 cm; Wt 76.1 kg
[~2024-04-10 03:12] MED LIST changes: -LORA2TA PO; +LORA2TAB15 PO
[2024-04-10 04:03] LABS: HEMATOCRIT 42.5 % (42.0-52.0); MEAN CORPUSCULAR HEMOGLOBIN 29.7 pg (27.0-33.0); MEAN CORPUSCULAR HGB CONC 35.3 g/dl (32.0-36.5); MEAN CORPUSCULAR VOLUME 84.2 fl (80.0-96.0); PLATELET COUNT, AUTOMATED 289 10^3/uL (150-450); RED BLOOD COUNT 5.05 10^6/uL (4.30-6.10); WHITE BLOOD COUNT 8.4 10^3/uL (4.0-10.0)
[2024-04-10 04:22] LABS: AMPHETAMINES LEVEL URINE NEGATIVE (NEGATIVE); BARBITURATES URINE NEGATIVE (NEGATIVE); BENZODIAZEPINES URINE NEGATIVE (NEGATIVE); CANNABINOIDS URINE NEGATIVE (NEGATIVE); COCAINE METABOLITE URINE NEGATIVE (NEGATIVE); METHADONE URINE NEGATIVE (NEGATIVE); OPIATES URINE NEGATIVE (NEGATIVE); PHENCYCLIDINE URINE NEGATIVE (NEGATIVE)
[2024-04-10 04:40] LABS: BLOOD UREA NITROGEN < 5 MG/DL (9-23); CALCIUM LEVEL 9.4 MG/DL (8.5-10.1); CARBON DIOXIDE LEVEL 28 MMOL/L (20-31); CHLORIDE LEVEL 96 MMOL/L (98-107); CREATININE FOR GFR 0.59 MG/DL (0.70-1.30); GLOMERULAR FILTRATION RATE > 60.0 (>60); GLUCOSE, FASTING 108 MG/DL (60-100); POTASSIUM SERUM 3.9 MMOL/L (3.5-5.1); SODIUM LEVEL 134 MMOL/L (136-145)
[2024-04-10 04:52] LABS: ETHYL ALCOHOL (ETHANOL) 0.237 % (0.000-0.010)
[2024-04-10] MEDS: NS (Normal Saline) 0.9% 1,000 ML IV ONE (05:00)
[2024-04-10] MEDS: IPRATROPIUM 0.5MG/ALBUTEROL 2.5MG INH SOL UD 3ML (DUONEB) NEB ONE (06:50)
[2024-04-10 08:06] LABS: INR 0.9; PARTIAL THROMBOPLASTIN TIME 33.8 SECONDS (24.8-34.2); PROTHROMBIN TIME 12.5 SECONDS (12.5-14.5)
[2024-04-10] MEDS ORDERED: AMOX875T2 PO (08:21)
[2024-04-10] MEDS ORDERED: VENTAER INH (08:21)
[2024-04-10 08:23] LABS: ALBUMIN 3.6 G/DL (3.2-5.2); BILIRUBIN,DIRECT 0.1 MG/DL (<0.4); BILIRUBIN,TOTAL 0.4 MG/DL (0.3-1.2); TOTAL PROTEIN 7.1 G/DL (5.7-8.2)
[2024-04-10] MEDS: AUGMENTIN 875 MG TAB PO ONE (08:29)
[2024-04-10] MEDS ORDERED: IBUP-1022 PO (08:29)
[2024-04-10] MEDS: KETOROLAC 30 MG/ML 1ML VIAL IV ONE (08:30)
[2024-04-10 08:43] VITALS: BP 111/76; TEMP 97.5; O2SAT 98
== END 2024-04-10 08:58 | disposition home or self-care (01) ==
LOC: M ED 03:12 → EDBD 03:12 → M ED 08:58
DX: R51.9 Headache, unspecified (principal); F10.120 Alcohol abuse with intoxication, uncomplicated; J20.9 Acute bronchitis, unspecified; F17.210 Nicotine dependence, cigarettes, uncomplicated; F20.9 Schizophrenia, unspecified; Z79.51 Long term (current) use of inhaled steroids; Z79.2 Long term (current) use of antibiotics; Z79.1 Long term (current) use of non-steroidal anti-inflammatories (NSAID); Z79.899 Other long term (current) drug therapy
CPT/HCPCS: 70450; 71045; 80048; 80076; 80143; 80307; 82077; 85027; 85610; 85730; 87486; 87581; 87633; 87798; 93005; 94640; 96361; 96374; 99284; J1885

== ENCOUNTER 2024-04-25 23:57 | Inpatient (IN) | payer MEDICARE, MEDICAID ==
[~2024-04-25] VITALS: Ht 175.3 cm; Wt 68.2 kg
[~2024-04-25 23:57] MED LIST changes: +AMOX875T2 PO; +IBUP-1022 PO; +VENTAER INH
[2024-04-26 01:08] LABS: HEMATOCRIT 39.6 % (42.0-52.0); HEMOGLOBIN 13.7 g/dl (13.5-17.5); MEAN CORPUSCULAR HEMOGLOBIN 29.1 pg (27.0-33.0); MEAN CORPUSCULAR HGB CONC 34.6 g/dl (32.0-36.5); MEAN CORPUSCULAR VOLUME 84.3 fl (80.0-96.0); PLATELET COUNT, AUTOMATED 461 10^3/uL (150-450); WHITE BLOOD COUNT 10.5 10^3/uL (4.0-10.0)
[2024-04-26 01:36] LABS: SALICYLATE LEVEL < 3.0 MG/DL (<30)
[2024-04-26 01:39] LABS: THYROID STIMULATING HORMONE 0.152 uIU/ML (0.55-4.78)
[2024-04-26 02:08] LABS: ALBUMIN 3.6 G/DL (3.2-5.2); ALKALINE PHOSPHATASE 81 U/L (40-129); ALT/SGPT 38 U/L (7.0-40); AST/SGOT 56 U/L (<34); BILIRUBIN,DIRECT 0.2 MG/DL (<0.4); BILIRUBIN,TOTAL 0.5 MG/DL (0.3-1.2); BLOOD UREA NITROGEN < 5 MG/DL (9-23); CARBON DIOXIDE LEVEL 26 MMOL/L (20-31); CHLORIDE LEVEL 102 MMOL/L (98-107); CREATININE FOR GFR 0.57 MG/DL (0.70-1.30); ETHYL ALCOHOL (ETHANOL) 0.305 % (0.000-0.010); GLOMERULAR FILTRATION RATE > 60.0 (>60); GLUCOSE, FASTING 92 MG/DL (60-100); POTASSIUM SERUM 4.1 MMOL/L (3.5-5.1); SODIUM LEVEL 139 MMOL/L (136-145); TOTAL PROTEIN 7.3 G/DL (5.7-8.2)
[2024-04-26 09:14] LABS: AMPHETAMINES LEVEL URINE NEGATIVE (NEGATIVE); BARBITURATES URINE NEGATIVE (NEGATIVE); BENZODIAZEPINES URINE NEGATIVE (NEGATIVE); CANNABINOIDS URINE NEGATIVE (NEGATIVE); METHADONE URINE NEGATIVE (NEGATIVE); OPIATES URINE NEGATIVE (NEGATIVE); PHENCYCLIDINE URINE NEGATIVE (NEGATIVE)
[2024-04-26 09:17] LABS: COCAINE METABOLITE URINE POSITIVE (NEGATIVE)
[2024-04-26] MEDS: FOLIC ACID 1MG TAB PO SCH (09:20)
[2024-04-26] MEDS: MULTIVITAMINS/MINERALS THERAP 1 TAB PO SCH (09:20)
[2024-04-26] MEDS: THIAMINE 100 MG TAB PO SCH ×2 (09:20→21:29)
[2024-04-26] MEDS ORDERED: MAALOX 30 ML SUSP *UDC PO PRN (11:55)
[2024-04-26] MEDS ORDERED: MOM 30ML SUSPENSION UDC PO PRN (11:55)
[2024-04-26] MEDS: LORazepam 2 MG TAB PO PRN (14:16)
[2024-04-26] MEDS: ONDANSETRON 4MG ORAL DISINTEGRATING TAB SL STA (14:44)
[2024-04-26 15:16] VITALS: BP 129/82; TEMP 98.5; O2SAT 97
[2024-04-26] MEDS: diphenhydrAMINE 25MG CAP PO PRN (15:36)
[2024-04-26] MEDS: IBUPROFEN 400MG TAB PO PRN (15:40)
[2024-04-26 16:30] VITALS: BP 123/84
[2024-04-26] MEDS ORDERED: LORazepam 2 MG TAB PO PRN (18:20)
[2024-04-26 18:30] VITALS: BP 120/79
[2024-04-26 21:26] VITALS: BP 121/83
[2024-04-26] MEDS: traZODone 50 MG TAB PO PRN (21:29)
[2024-04-26] MEDS: ACETAMINOPHEN 325 MG TAB PO PRN (21:30)
[2024-04-27 06:31] VITALS: BP 124/67
[2024-04-27 06:36] VITALS: BP 124/67; TEMP 98.2; O2SAT 100
[2024-04-27] MEDS ORDERED: VENTAER INH (07:52)
[2024-04-27] MEDS ORDERED: HOME MED LIST COMPLETE! XX SCH (08:05)
[2024-04-27] MEDS ORDERED: diphenhydrAMINE 25MG CAP PO PRN (09:15)
[2024-04-27] MEDS: MULTIVITAMINS/MINERALS THERAP 1 TAB PO SCH (09:18)
[2024-04-27] MEDS: FOLIC ACID 1MG TAB PO SCH (09:19)
[2024-04-27] MEDS: busPIRone 10 MG TAB PO SCH (09:34)
[2024-04-27] MEDS: ESCITALOPRAM OXALATE 10 MG TAB (LEXAPRO) PO SCH (09:35)
[2024-04-27] MEDS: buPROPion **XL** TABLET 150MG (WELLBUTRIN XL) PO SCH (09:35)
[2024-04-27] MEDS: NICOTINE 21MG/24HR 1 EA TRANSDERMAL TD SCH (11:30)
[2024-04-27 13:02] LABS: FREE T3 2.8 PG/ML (2.3-4.2); THYROID PEROXIDASE ANTIBODY < 28.0 U/ML (<60.0)
[2024-04-27 13:03] LABS: FREE T4 1.18 NG/DL (0.89-1.76)
[2024-04-27 13:27] LABS: HEPATITIS B SURFACE ANTIGEN NEGATIVE (NEGATIVE)
[2024-04-27 13:39] LABS: HIV 1&2 SCREEN NEGATIVE (NEGATIVE)
[2024-04-27 13:46] LABS: HEPATITIS C VIRUS ABY INDEX < 0.02 INDEX (<0.8)
[2024-04-27 13:47] LABS: HEPATITIS B CORE ANTIBODY IGM NEGATIVE (NEGATIVE)
[2024-04-27 14:12] VITALS: BP 126/85
[2024-04-27 16:23] LABS: Trichomonas vaginalis (AMP) NOT DETECTED (NEGATIVE)
[2024-04-27 16:45] LABS: GC DNA AMPLIFICATION NEGATIVE (NEGATIVE)
[2024-04-27 18:03] VITALS: BP 148/98; TEMP 97.3; O2SAT 100
[2024-04-27] MEDS: ONDANSETRON 4MG ORAL DISINTEGRATING TAB PO PRN (18:20)
[2024-04-27] MEDS: PALIPERIDONE 6MG ER TAB (INVEGA) PO SCH (19:58)
[2024-04-27] MEDS: QUEtiapine FUMARATE 100 MG TAB PO SCH (19:59)
[2024-04-27] MEDS: PRAZOSIN 1 MG CAP PO SCH (19:59)
[2024-04-27 21:18] VITALS: BP 123/66
[2024-04-28 06:18] VITALS: BP 109/60
[2024-04-28 06:23] VITALS: BP 109/60; TEMP 97.9; O2SAT 98
[2024-04-28 14:18] VITALS: BP 118/69
[2024-04-28 15:57] VITALS: BP 118/69; TEMP 98.2; O2SAT 100
[2024-04-28] MEDS: traZODone 100 MG TAB PO PRN (20:15)
[2024-04-28] MEDS: IBUPROFEN 600MG TAB PO PRN (20:17)
[2024-04-28] MEDS: ALBUTEROL 90 MCG/ACT 8GM HFA INHALER INH PRN (20:20)
[2024-04-28] MEDS: BENZTROPINE 0.5 MG TAB PO SCH (20:35)
[2024-04-29 06:09] VITALS: BP 108/56; TEMP 97.8; O2SAT 100
[2024-04-29 12:58] VITALS: BP 120/68
[2024-04-29 16:03] VITALS: BP 128/70; TEMP 98.5; O2SAT 100
[2024-04-30 06:24] VITALS: BP 136/81; TEMP 97.2; O2SAT 100
[2024-04-30] MEDS: PILL CUTTER 1 EACH XX PRN (09:15)
[2024-04-30 15:17] VITALS: BP 133/75; TEMP 98.3; O2SAT 100
[2024-04-30 20:05] VITALS: BP 131/91
[2024-04-30] MEDS: AMOXICILLIN 875 MG TAB PO SCH (20:06)
[2024-05-01 06:21] VITALS: BP 148/84; TEMP 97.5; O2SAT 100
[2024-05-01] MEDS ORDERED: AMOX875T PO (13:59)
== END 2024-05-01 14:28 | disposition home or self-care (01) | DRG 885 ==
LOC: M ED 04-26 00:19 → M ED INP 04-26 11:54 → M PSY 04-26 14:30
PROVIDERS: ADMIT Psychiatry & Neurology Psychiatry; ATTEND Psychiatry & Neurology Psychiatry
DX: F20.9 Schizophrenia, unspecified (principal); R45.851 Suicidal ideations; F10.129 Alcohol abuse with intoxication, unspecified; Z91.51 Personal history of suicidal behavior; Z56.0 Unemployment, unspecified; F17.200 Nicotine dependence, unspecified, uncomplicated; Z79.899 Other long term (current) drug therapy; J32.9 Chronic sinusitis, unspecified

== ENCOUNTER → 2024-07-07 | Outpatient (REF) | payer MEDICARE, MEDICAID ==
[~2024-07-07] MED LIST changes: +AMOX875T PO; -ELIM5CRE2 TOP; +PERM60CR8 TOP
[2024-07-07 15:47] LABS: APPEARANCE, URINE CLEAR (CLEAR); BACTERIA, URINE AUTO NEGATIVE (NEGATIVE); BILIRUBIN, URINE AUTO NEGATIVE (NEGATIVE); BLOOD, URINE BLOOD NEGATIVE (NEGATIVE); COLOR, URINE YELLOW (YELLOW); GLUCOSE, URINE (UA) AUTO NEGATIVE (NEGATIVE); KETONE, URINE AUTO NEGATIVE (NEGATIVE); LEUKOCYTE ESTERASE, URINE AUTO NEGATIVE (NEGATIVE); NITRITE, URINE AUTO NEGATIVE (NEGATIVE); PROTEIN, URINE AUTO NEGATIVE (NEGATIVE); RBC, URINE AUTO 0 /HPF (0-3); SPECIFIC GRAVITY URINE AUTO 1.012 (1.002-1.035); SQUAMOUS EPITHELIAL CELL UR AU 0 /HPF (0-6); UROBILINOGEN, URINE AUTO 0.2 mg/dL (0.0-2.0); WBC, URINE AUTO 2 /HPF (0-3)
[2024-07-07 16:48] LABS: Trichomonas vaginalis (AMP) NOT DETECTED (NEGATIVE)
[2024-07-07 17:12] LABS: GC DNA AMPLIFICATION NEGATIVE (NEGATIVE)
== END ==
LOC: M LAB REF 15:14
PROVIDERS: ATTEND Physician Assistant
DX: Z20.2 Contact with and (suspected) exposure to infections with a predominantly sexual mode of transmission (principal); N39.0 Urinary tract infection, site not specified; Z11.3 Encounter for screening for infections with a predominantly sexual mode of transmission; Z72.89 Other problems related to lifestyle

== ENCOUNTER 2024-07-24 07:44 | Emergency (ER) | payer MEDICAID, MEDICARE, OTHER ==
[~2024-07-24] VITALS: Ht 180.3 cm; Wt 76.6 kg
[2024-07-24] MEDS: LIDOCAINE 2% 5ML JELLY UROJET TOP ONE (08:10)
[2024-07-24 08:11] LABS: HEMATOCRIT 38.9 % (42.0-52.0); HEMOGLOBIN 13.4 g/dl (13.5-17.5); MEAN CORPUSCULAR HEMOGLOBIN 29.3 pg (27.0-33.0); MEAN CORPUSCULAR HGB CONC 34.4 g/dl (32.0-36.5); MEAN CORPUSCULAR VOLUME 84.9 fl (80.0-96.0); PLATELET COUNT, AUTOMATED 251 10^3/uL (150-450); RED BLOOD COUNT 4.58 10^6/uL (4.30-6.10); WHITE BLOOD COUNT 9.3 10^3/uL (4.0-10.0)
[2024-07-24 08:40] LABS: ETHYL ALCOHOL (ETHANOL) 0.138 % (0.000-0.010)
[2024-07-24 08:41] LABS: CPK CREATINE PHOSPHOKINASE 280 U/L (46-171); SALICYLATE LEVEL < 3.0 MG/DL (<30)
[2024-07-24 08:44] LABS: THYROID STIMULATING HORMONE 0.207 uIU/ML (0.55-4.78)
[2024-07-24 08:54] LABS: ALBUMIN 3.7 G/DL (3.2-5.2); ALKALINE PHOSPHATASE 80 U/L (40-129); ALT/SGPT 20 U/L (7.0-40); AST/SGOT 29 U/L (<34); BILIRUBIN,DIRECT 0.2 MG/DL (<0.4); BILIRUBIN,TOTAL 0.6 MG/DL (0.3-1.2); BLOOD UREA NITROGEN < 5 MG/DL (9-23); CARBON DIOXIDE LEVEL 24 MMOL/L (20-31); CHLORIDE LEVEL 101 MMOL/L (98-107); GLOMERULAR FILTRATION RATE > 60.0 (>60); GLUCOSE, FASTING 126 MG/DL (60-100); POTASSIUM SERUM 3.7 MMOL/L (3.5-5.1); SODIUM LEVEL 135 MMOL/L (136-145); TOTAL PROTEIN 7.1 G/DL (5.7-8.2)
[2024-07-24 09:07] LABS: AMPHETAMINES LEVEL URINE NEGATIVE (NEGATIVE); BARBITURATES URINE NEGATIVE (NEGATIVE); BENZODIAZEPINES URINE NEGATIVE (NEGATIVE)
[2024-07-24 09:08] LABS: CANNABINOIDS URINE NEGATIVE (NEGATIVE); METHADONE URINE NEGATIVE (NEGATIVE); OPIATES URINE NEGATIVE (NEGATIVE); PHENCYCLIDINE URINE NEGATIVE (NEGATIVE)
[2024-07-24 09:11] LABS: COCAINE METABOLITE URINE POSITIVE (NEGATIVE)
[2024-07-24 16:45] VITALS: BP 126/89; TEMP 98.5; O2SAT 96
== END 2024-07-24 16:45 | disposition home or self-care (01) ==
LOC: M ED 07:44 → EDBD 07:44 → M ED 16:45
DX: F10.10 Alcohol abuse, uncomplicated (principal); F15.10 Other stimulant abuse, uncomplicated; I45.81 Long QT syndrome; F20.9 Schizophrenia, unspecified; F17.210 Nicotine dependence, cigarettes, uncomplicated; Z79.51 Long term (current) use of inhaled steroids; Z79.2 Long term (current) use of antibiotics; Z79.899 Other long term (current) drug therapy

== ENCOUNTER 2024-08-24 07:03 | Observation (INO) | payer MEDICARE, MEDICAID ==
[~2024-08-24] VITALS: Ht 185.4 cm; Wt 72.4 kg
[2024-08-24 07:25] LABS: BASO # 0.1 10^3/uL (0.0-0.2); BASO % 0.7 % (0.0-1.0); EOS # 0.2 10^3/uL (0.0-0.5); EOS % 1.6 % (0.0-3.0); HEMATOCRIT 36.4 % (42.0-52.0); HEMOGLOBIN 12.8 g/dl (13.5-17.5); LYMPH % 42.6 % (24.0-44.0); MEAN CORPUSCULAR HEMOGLOBIN 29.2 pg (27.0-33.0); MEAN CORPUSCULAR HGB CONC 35.2 g/dl (32.0-36.5); MEAN CORPUSCULAR VOLUME 83.1 fl (80.0-96.0); MONO % 10.1 % (2.0-8.0); NEUTROPHILS # 4.2 10^3/uL (1.5-8.5); NEUTROPHILS % 44.8 % (36.0-66.0); PLATELET COUNT, AUTOMATED 206 10^3/uL (150-450); RED BLOOD COUNT 4.38 10^6/uL (4.30-6.10); WHITE BLOOD COUNT 9.4 10^3/uL (4.0-10.0)
[2024-08-24 07:51] LABS: KETONE, URINE AUTO RFX NEGATIVE (NEGATIVE); LEUKOCYTE ESTERASE UR AUTO RFX NEGATIVE (NEGATIVE); NITRITE, URINE AUTO RFX NEGATIVE (NEGATIVE); RBC, URINE AUTO RFX 0 /HPF (0-3); SQUAM EPITHELIAL CELL UR AURFX 0 /HPF (0-6); WBC, URINE AUTO RFX 0 /HPF (0-3)
[2024-08-24 07:56] LABS: SALICYLATE LEVEL < 3.0 MG/DL (<30)
[2024-08-24] MEDS: LIDOCAINE 2% 5ML JELLY UROJET TOP ONE (07:57)
[2024-08-24] MEDS: NS 500 ML IV ONE (07:58)
[2024-08-24 07:59] LABS: ALBUMIN 3.7 G/DL (3.2-5.2); ALKALINE PHOSPHATASE 79 U/L (40-129); ALT/SGPT 71 U/L (7.0-40); AST/SGOT 96 U/L (<34); BILIRUBIN,DIRECT 0.2 MG/DL (<0.4); BILIRUBIN,TOTAL 0.7 MG/DL (0.3-1.2); BLOOD UREA NITROGEN < 5 MG/DL (9-23); CALCIUM LEVEL 8.7 MG/DL (8.5-10.1); CARBON DIOXIDE LEVEL 23 MMOL/L (20-31); CHLORIDE LEVEL 98 MMOL/L (98-107); CREATININE FOR GFR 0.59 MG/DL (0.70-1.30); GLOMERULAR FILTRATION RATE > 90.0 (>60); GLUCOSE, FASTING 89 MG/DL (60-100); POTASSIUM SERUM 3.7 MMOL/L (3.5-5.1); SODIUM LEVEL 131 MMOL/L (136-145); THYROID STIMULATING HORMONE 0.192 uIU/ML (0.55-4.78); TOTAL PROTEIN 6.9 G/DL (5.7-8.2)
[2024-08-24 08:14] LABS: ETHYL ALCOHOL (ETHANOL) 0.307 % (0.000-0.010)
[2024-08-24 08:18] LABS: AMPHETAMINES LEVEL URINE NEGATIVE (NEGATIVE); BARBITURATES URINE NEGATIVE (NEGATIVE); BENZODIAZEPINES URINE NEGATIVE (NEGATIVE)
[2024-08-24 08:19] LABS: CANNABINOIDS URINE NEGATIVE (NEGATIVE); METHADONE URINE NEGATIVE (NEGATIVE); OPIATES URINE NEGATIVE (NEGATIVE); PHENCYCLIDINE URINE NEGATIVE (NEGATIVE)
[2024-08-24 08:24] LABS: COCAINE METABOLITE URINE POSITIVE (NEGATIVE)
[2024-08-24] MEDS ORDERED: MED REC IN PROGRESS XX SCH (10:25)
[2024-08-24 10:36] LABS: VENOUS HCO3 24.5 MMOL/L (23.0-27.0); VENOUS O2 SATURATION 98.3 % (60.0-80.0); VENOUS PARTIAL PRESSURE CO2 43.7 mmHg (38.0-50.0); VENOUS PARTIAL PRESSURE O2 133.9 mmHg (30.0-50.0); VENOUS PH 7.366 UNITS (7.330-7.430); VENOUS STANDARD HCO3 23.6 MMOL/L; VENOUS TOTAL CO2 25.8 MMOL/L (24.0-28.0)
[2024-08-24 12:03] LABS: FREE T4 1.56 NG/DL (0.89-1.76)
[2024-08-24] MEDS ORDERED: MOM 30ML SUSPENSION UDC PO PRN (12:30)
[2024-08-24 14:45] VITALS: BP 126/81; TEMP 98.6; O2SAT 100
[2024-08-24] MEDS: MULTIVITAMINS/MINERALS THERAP 1 TAB PO SCH (15:24)
[2024-08-24] MEDS: DOCUSATE SODIUM 100MG CAPSULE PO SCH (15:25)
[2024-08-24] MEDS: FOLIC ACID 1MG TAB PO SCH (15:25)
[2024-08-24] MEDS: THIAMINE 100 MG TAB PO SCH (15:25)
[2024-08-24] MEDS ORDERED: HOME MED LIST COMPLETE! XX SCH (15:45)
[2024-08-24 20:01] VITALS: BP 137/74
[2024-08-24 20:06] VITALS: BP 137/74; TEMP 99; O2SAT 100
[2024-08-24] MEDS: ACETAMINOPHEN 325 MG TAB PO PRN (20:07)
[2024-08-24] MEDS: LORazepam 2 MG TAB PO PRN (20:49)
[2024-08-24 20:50] VITALS: BP 137/74
[2024-08-24 23:00] VITALS: BP 130/70; TEMP 98.4; O2SAT 96
[2024-08-25] VITALS: BP 130/70
[2024-08-25 04:00] VITALS: BP 123/82
[2024-08-25 04:51] LABS: HEMATOCRIT 41.1 % (42.0-52.0); HEMOGLOBIN 13.8 g/dl (13.5-17.5); MEAN CORPUSCULAR HEMOGLOBIN 28.9 pg (27.0-33.0); MEAN CORPUSCULAR HGB CONC 33.6 g/dl (32.0-36.5); PLATELET COUNT, AUTOMATED 165 10^3/uL (150-450); RED BLOOD COUNT 4.78 10^6/uL (4.30-6.10); WHITE BLOOD COUNT 4.9 10^3/uL (4.0-10.0)
[2024-08-25 05:15] LABS: ALBUMIN 3.5 G/DL (3.2-5.2); BILIRUBIN,DIRECT 0.4 MG/DL (<0.4); BILIRUBIN,TOTAL 1.1 MG/DL (0.3-1.2); BLOOD UREA NITROGEN 9 MG/DL (9-23); CALCIUM LEVEL 9.1 MG/DL (8.5-10.1); CARBON DIOXIDE LEVEL 29 MMOL/L (20-31); CHLORIDE LEVEL 106 MMOL/L (98-107); CREATININE FOR GFR 0.65 MG/DL (0.70-1.30); GLOMERULAR FILTRATION RATE > 90.0 (>60); GLUCOSE, FASTING 94 MG/DL (60-100); POTASSIUM SERUM 4.2 MMOL/L (3.5-5.1); SODIUM LEVEL 139 MMOL/L (136-145); TOTAL PROTEIN 6.6 G/DL (5.7-8.2)
[2024-08-25 06:12] VITALS: BP 123/82; TEMP 98.1; O2SAT 100
[2024-08-25] MEDS: ENOXAPARIN 40MG/0.4ML SYRINGE (J1650 PER 10MG) SC SCH (09:00)
[2024-08-25] MEDS ORDERED: THIA100TA PO (09:45)
== END 2024-08-25 12:00 | disposition home or self-care (01) ==
LOC: M ED 07:03 → M ED INP 07:04 → M MSPAV 14:34
PROVIDERS: ADMIT Student in an Organized Health Care Education/Training Program; ATTEND Student in an Organized Health Care Education/Training Program
DX: G92.9 Unspecified toxic encephalopathy (principal); F10.120 Alcohol abuse with intoxication, uncomplicated; E87.1 Hypo-osmolality and hyponatremia; T50.904A Poisoning by unspecified drugs, medicaments and biological substances, undetermined, initial encounter; Y92.009 Unspecified place in unspecified non-institutional (private) residence as the place of occurrence of the external cause; F19.10 Other psychoactive substance abuse, uncomplicated; R74.01 Elevation of levels of liver transaminase levels; R82.5 Elevated urine levels of drugs, medicaments and biological substances; F43.10 Post-traumatic stress disorder, unspecified; F20.0 Paranoid schizophrenia; F32.A Depression, unspecified; Z91.51 Personal history of suicidal behavior; G47.00 Insomnia, unspecified; F41.9 Anxiety disorder, unspecified; J45.909 Unspecified asthma, uncomplicated; Z87.828 Personal history of other (healed) physical injury and trauma; F17.200 Nicotine dependence, unspecified, uncomplicated; Z79.899 Other long term (current) drug therapy
CPT/HCPCS: 36415; 70450; 71045; 80047; 80048; 80076; 80143; 80307; 81001; 82077; 82140; 82803; 84439; 84443; 85025; 85027; 93005; 93041; 96360; 96361; 99285; G0378

== ENCOUNTER 2024-11-23 05:26 | Emergency (ER) | payer MEDICARE, MEDICAID ==
[~2024-11-23] VITALS: Ht 182.9 cm; Wt 73.2 kg
[2024-11-23 06:04] LABS: PLATELET COUNT, AUTOMATED 262 10^3/uL (150-450)
[2024-11-23 06:30] LABS: AMPHETAMINES LEVEL URINE NEGATIVE (NEGATIVE); BARBITURATES URINE NEGATIVE (NEGATIVE); BENZODIAZEPINES URINE NEGATIVE (NEGATIVE); CANNABINOIDS URINE NEGATIVE (NEGATIVE); COCAINE METABOLITE URINE NEGATIVE (NEGATIVE); METHADONE URINE NEGATIVE (NEGATIVE); OPIATES URINE NEGATIVE (NEGATIVE); PHENCYCLIDINE URINE NEGATIVE (NEGATIVE)
[2024-11-23 06:42] LABS: SALICYLATE LEVEL < 3.0 MG/DL (<30)
[2024-11-23 06:51] LABS: ALT/SGPT 121 U/L (7.0-40); AST/SGOT 125 U/L (<34); CALCIUM LEVEL 8.8 MG/DL (8.5-10.1); CARBON DIOXIDE LEVEL 23 MMOL/L (20-31); CHLORIDE LEVEL 95 MMOL/L (98-107); CREATININE FOR GFR 0.81 MG/DL (0.70-1.30); ETHYL ALCOHOL (ETHANOL) 0.323 % (0.000-0.010); GLOMERULAR FILTRATION RATE > 90.0 (>60); POTASSIUM SERUM 4.2 MMOL/L (3.5-5.1); SODIUM LEVEL 132 MMOL/L (136-145)
[2024-11-23] MEDS: THIAMINE 100 MG TAB PO SCH (10:54)
[2024-11-23] MEDS: MULTIVITAMINS/MINERALS THERAP 1 TAB PO SCH (10:54)
[2024-11-23] MEDS: FOLIC ACID 1 MG TAB PO SCH (10:54)
[2024-11-23 12:41] VITALS: BP 126/90; TEMP 98.4; O2SAT 100
== END 2024-11-23 12:46 | disposition home or self-care (01) ==
LOC: M ED 05:26
DX: F10.14 Alcohol abuse with alcohol-induced mood disorder (principal); F20.9 Schizophrenia, unspecified; F17.210 Nicotine dependence, cigarettes, uncomplicated; F14.10 Cocaine abuse, uncomplicated; Z79.51 Long term (current) use of inhaled steroids; Z79.899 Other long term (current) drug therapy

== ENCOUNTER 2025-02-02 14:50 | Inpatient (IN) | payer MEDICARE, MEDICAID ==
[~2025-02-02] VITALS: Ht 185.4 cm; Wt 73.9 kg
[~2025-02-02 14:50] MED LIST changes: -IBUP-1022 PO; +IBUP600T42 PO
[2025-02-02 15:49] LABS: BASO # 0.1 10^3/uL (0.0-0.2); BASO % 2.1 % (0.0-1.0); EOS # 0.1 10^3/uL (0.0-0.5); EOS % 1.8 % (0.0-3.0); LYMPH # 2.8 10^3/uL (1.5-5.0); LYMPH % 45.0 % (24.0-44.0); MONO # 0.9 10^3/uL (0.0-0.8); MONO % 13.7 % (2.0-8.0); NEUTROPHILS # 2.3 10^3/uL (1.5-8.5); NEUTROPHILS % 37.2 % (36.0-66.0); PLATELET COUNT, AUTOMATED 289 10^3/uL (150-450)
[2025-02-02 16:14] LABS: CPK CREATINE PHOSPHOKINASE 366 U/L (46-171)
[2025-02-02 16:20] LABS: SALICYLATE LEVEL < 3.0 MG/DL (<30)
[2025-02-02] MEDS ORDERED: diphenhydrAMINE 50 MG/ML VIAL IM ONE (16:20)
[2025-02-02] MEDS ORDERED: OLANZapine INTRAMUSCULAR 10MG VIAL IM ONE (16:20)
[2025-02-02 16:31] LABS: AMPHETAMINES LEVEL URINE NEGATIVE (NEGATIVE); BARBITURATES URINE NEGATIVE (NEGATIVE); BENZODIAZEPINES URINE NEGATIVE (NEGATIVE); COCAINE METABOLITE URINE NEGATIVE (NEGATIVE); METHADONE URINE NEGATIVE (NEGATIVE)
[2025-02-02 16:32] LABS: CANNABINOIDS URINE NEGATIVE (NEGATIVE); OPIATES URINE NEGATIVE (NEGATIVE); PHENCYCLIDINE URINE NEGATIVE (NEGATIVE)
[2025-02-02 17:04] LABS: ALT/SGPT 68 U/L (7.0-40); AST/SGOT 113 U/L (<34); CARBON DIOXIDE LEVEL 26 MMOL/L (20-31); CHLORIDE LEVEL 94 MMOL/L (98-107); CK-MB VALUE MASS 3.0 NG/ML (<3.6); CREATININE FOR GFR 0.69 MG/DL (0.70-1.30); ETHYL ALCOHOL (ETHANOL) 0.331 % (0.000-0.010); FREE T4 1.78 NG/DL (0.89-1.76); GLOMERULAR FILTRATION RATE > 90.0 (>60); MB/CK RELATIVE INDEX 0.81 (< OR =4); POTASSIUM SERUM 4.2 MMOL/L (3.5-5.1); SODIUM LEVEL 133 MMOL/L (136-145)
[2025-02-02 17:15] LABS: CALCIUM LEVEL 8.7 MG/DL (8.5-10.1)
[2025-02-02 18:20] LABS: CK-MB VALUE MASS 3.0 NG/ML (<3.6)
[2025-02-02 18:21] LABS: CPK CREATINE PHOSPHOKINASE 357.0 U/L (46-171); MB/CK RELATIVE INDEX 0.84 (< OR =4)
[2025-02-02] MEDS: OLANZapine ORAL DISINTEGRATING TAB 5MG PO ONE (19:27)
[2025-02-02] MEDS: NICOTINE 21 MG/24 HR 1 EA TRANSDERMAL TD ONE (19:47)
[2025-02-03] MEDS ORDERED: LEXA1TAB2 PO (07:45)
[2025-02-03] MEDS ORDERED: CLON0.5T2 PO (07:45)
[2025-02-03] MEDS ORDERED: PALI1TAB4 PO (07:45)
[2025-02-03] MEDS ORDERED: TRAZ-257 PO (07:45)
[2025-02-03] MEDS ORDERED: QUET400T2 PO (07:45)
[2025-02-03] MEDS ORDERED: HOME MED LIST COMPLETE! XX SCH (07:50)
[2025-02-03] MEDS ORDERED: traZODone 100 MG TAB PO PRN (08:30)
[2025-02-03] MEDS: ESCITALOPRAM OXALATE 10 MG TABLET PO SCH (08:58)
[2025-02-03] MEDS: THIAMINE 100 MG TAB PO SCH ×2 (08:58→21:26)
[2025-02-03] MEDS: MULTIVITAMINS/MINERALS THERAP 1 TAB PO SCH (08:58)
[2025-02-03] MEDS: FOLIC ACID 1 MG TAB PO SCH (08:58)
[2025-02-03] MEDS: NICOTINE 21 MG/24 HR 1 EA TRANSDERMAL TD SCH (09:00)
[2025-02-03] MEDS: PALIPERIDONE 3MG ER TAB PO SCH (09:15)
[2025-02-03] MEDS ORDERED: MOM 30 ML SUSPENSION UDC PO PRN (10:40)
[2025-02-03] MEDS ORDERED: MAALOX 30 ML SUSP *UDC PO PRN (10:40)
[2025-02-03] MEDS ORDERED: IBUPROFEN 400 MG TAB PO PRN (10:40)
[2025-02-03] MEDS ORDERED: traZODone 50 MG TAB PO PRN (10:40)
[2025-02-03 13:58] VITALS: BP 108/65; TEMP 97.4; O2SAT 100
[2025-02-03] MEDS ORDERED: PRAZOSIN 1 MG CAP PO SCH (21:00)
[2025-02-03] MEDS: PRAZOSIN 1 MG CAP PO SCH (21:26)
[2025-02-03] MEDS: traZODone 100 MG TAB PO PRN (21:27)
[2025-02-03 22:23] VITALS: BP 122/68
[2025-02-04 06:33] VITALS: BP 141/76; TEMP 96.6; O2SAT 96
[2025-02-04] MEDS: FOLIC ACID 1 MG TAB PO SCH (08:00)
[2025-02-04] MEDS: MULTIVITAMINS/MINERALS THERAP 1 TAB PO SCH (08:00)
[2025-02-04] MEDS: ESCITALOPRAM OXALATE 10 MG TABLET PO SCH (08:00)
[2025-02-04 10:32] VITALS: BP 136/86
[2025-02-04 12:40] VITALS: BP 119/88
[2025-02-04 13:03] LABS: FREE T4 1.37 NG/DL (0.89-1.76)
[2025-02-04 13:06] LABS: THYROID PEROXIDASE ANTIBODY < 28.0 U/ML (<60.0)
[2025-02-04] MEDS: PALIPERIDONE 3MG ER TAB PO SCH (14:02)
[2025-02-04 14:40] VITALS: BP 144/84
[2025-02-04 15:19] VITALS: BP 144/84; TEMP 97.7; O2SAT 100
[2025-02-04 22:10] VITALS: BP 142/67
[2025-02-05 06:25] VITALS: BP 119/86; TEMP 98.3; O2SAT 100
[2025-02-05 15:14] VITALS: BP 141/92; TEMP 98; O2SAT 100
[2025-02-05] MEDS: ALBUTEROL 90 MCG/ACT 8 GM HFA INHALER INH PRN (20:19)
[2025-02-06 06:29] VITALS: BP 114/67; TEMP 98.3; O2SAT 100
[2025-02-06] MEDS: PALIPERIDONE 3MG ER TAB PO SCH (08:27)
[2025-02-06] MEDS: ACETAMINOPHEN 325 MG TAB PO PRN (10:08)
[2025-02-06] MEDS: clonazePAM 0.5 MG TAB PO PRN (12:57)
[2025-02-06] MEDS: IBUPROFEN 400 MG TAB PO SCH (14:00)
[2025-02-07 06:35] VITALS: BP 114/66; TEMP 97.4; O2SAT 100
[2025-02-07 07:42] LABS: THRYOGLOBULIN ANTIBODIES (ATA) < 1 IU/mL (< or = 1); THYROGLOBULIN QUANTITATIVE 7.2 ng/mL (2.8-40.9)
[2025-02-07 16:01] VITALS: BP 133/75; TEMP 97.9; O2SAT 99
[2025-02-07 17:48] LABS: THYROID STIMULATING IMMUNOGLOB < 89 % baseline (<140)
[2025-02-08 06:10] VITALS: BP 140/80; TEMP 98; O2SAT 98
[2025-02-09 06:23] VITALS: BP 172/98; TEMP 97.6; O2SAT 99
[2025-02-09 14:53] VITALS: BP 184/102; TEMP 97.8; O2SAT 100
[2025-02-09 16:30] VITALS: BP 130/74
[2025-02-10 06:42] VITALS: BP 144/77; TEMP 97.2; O2SAT 97
[2025-02-10 14:27] VITALS: BP_SYST 138; BP_SYST 142; BP_DIAS 80; BP_DIAS 87; TEMP 98.3; O2SAT 100; O2SAT 98
[2025-02-11 06:37] VITALS: BP 116/75; TEMP 97.5; O2SAT 98
[2025-02-11 20:09] VITALS: BP 129/80
[2025-02-12 06:23] VITALS: BP 142/88; TEMP 97.7; O2SAT 100
[2025-02-12] MEDS ORDERED: TRAZ-257 PO ×2 (08:01→08:48)
[2025-02-12] MEDS ORDERED: LEXA1TAB2 PO ×2 (08:01→08:49)
[2025-02-12] MEDS ORDERED: QUET400T2 PO (08:01)
[2025-02-12] MEDS ORDERED: PRAZ2CAP PO ×2 (08:01→08:46)
[2025-02-12] MEDS ORDERED: SERO400T PO (08:45)
[2025-02-12] MEDS ORDERED: NICO21PAT TD (08:48)
== END 2025-02-12 11:16 | disposition home or self-care (01) | DRG 885 ==
LOC: M ED 14:50 → EDBD 14:50 → M ED INP 02-03 10:40 → M PSY 02-03 13:40
PROVIDERS: ADMIT General Practice; ATTEND General Practice
DX: F25.0 Schizoaffective disorder, bipolar type (principal); R45.851 Suicidal ideations; Z59.00 Homelessness unspecified; E87.1 Hypo-osmolality and hyponatremia; F41.0 Panic disorder [episodic paroxysmal anxiety]; F10.229 Alcohol dependence with intoxication, unspecified; F17.210 Nicotine dependence, cigarettes, uncomplicated; E02 Subclinical iodine-deficiency hypothyroidism